=== PATIENT | female | born 1950 | race African-American/Black ===

== ENCOUNTER 2019-05-24 21:02 | Emergency (ER) | payer OTHER ==
[2019-05-24] MEDS ORDERED: DIAZEPAM 5 MG TABLET ONE (21:37)
--- NOTE | 2019-05-24 22:17 | ER ---
Nurse's Notes [facility] Name: Anita Harp Age: 69 yrs Sex: Female : 1950 Arrival Date: 05/24/2019 Time: 21:10 Bed 16 Private MD: Diagnosis: Fall on same level from slipping, tripping and stumbling;Unspecified injury of head;Radiculopathy, cervicothoracic region Presentation: 05/24 21:14 Presenting complaint: Patient states: Reports she had a fall two weeks ago hit her ea head, states " I went to my doctor but she said I was ok" Reports she started having pain two nights ago to the back of the neck. Denies blurry vision. Transition of care: patient was not received from another setting of care. Onset of symptoms was May 24, 2019. Risk Assessment: Do you want to hurt yourself or someone else? Patient reports no desire to harm self or others. Initial Sepsis Screen: Does the patient meet any 2 criteria? No. Patient's initial sepsis screen is negative. Does the patient have a suspected source of infection? No. Patient's initial sepsis screen is negative. Care prior to arrival: None. 21:14 Method Of Arrival: Wheelchair ea 21:14 Acuity: DENT[place] 3 ea Historical: - Allergies: 21:18 Aspirin; ea 21:18 Ibuprofen; ea 21:18 PENICILLINS; ea - Home Meds: 21:18 amitriptyline 10 mg Oral tab 1 tab 3 times per day [Active]; carvedilol 12.5 mg Oral ea tab 1 tab 2 times per day [Active]; furosemide 20 mg Oral tab 1 tab once daily [Active]; gabapentin 300 mg Oral cap 1 cap 3 times per day [Active]; metformin 500 mg Oral TbER 2 tabs once daily [Active]; potassium chloride 20 mEq Oral TbER 1 tab once daily [Active]; valsartan 160 mg Oral tab 1 tab once daily [Active]; venlafaxine 150 mg Oral cp24 1 cap once daily [Active]; - PMHx: 21:18 Rheumatoid Arthritis; Panic Attacks; Diabetes - NIDDM; COPD; claustrophobia; CHF; ea Anxiety; - PSHx: 21:18 Cholecystectomy; Partial Hysterectomy; Tubal ligation; ea - Immunization history:: Adult Immunizations up to date. - Coronavirus screen:: The patient has NOT traveled to [place] in the past 14 days. - Social history:: Smoking status: Patient denies any tobacco usage or history of. - Ebola Screening: : No symptoms or risks identified at this time. Screenin:16 Abuse screen: Denies threats or abuse. Nutritional screening: No deficits noted. ea Tuberculosis screening: No symptoms or risk factors identified. Fall Risk Fall in past 12 months (25 points). Assessment: 21:15 General: Appears uncomfortable, obese, Behavior is cooperative. ls4 21:15 Pain: Complains of pain in base of the skull Pain currently is 8 out of 10 on a pain ls4 scale. Neuro: No deficits noted. Cardiovascular: No deficits noted. Respiratory: No deficits noted. GI: No deficits noted. Musculoskeletal: Circulation, motion, and sensation intact. Capillary refill < 3 seconds, Range of motion: limited in NECK Swelling absent. Injury Description: NO VISIBLE INJURY. 22:20 Reassessment: Patient appears in no apparent distress at this time. Patient and/or ls4 family updated on plan of care and expected duration. Pain level reassessed. Patient is alert, oriented x 3, equal unlabored respirations, skin warm/dry/pink. Patient states symptoms have improved. Vital Signs: 21:16 BP 185 / 84; Pulse 86; Resp 18; Temp 98.1; Pulse Ox 100% on R/A; Weight 136.08 kg; ea Height 5 ft. 4 in. (162.56 cm); Pain 8/10; 21:16 Body Mass Index 51.49 (136.08 kg, 162.56 cm) ea ED Course: 21:10 Patient arrived in ED. ds1 21:16 Triage completed. ea 21:17 Arm band placed on right wrist. Patient placed in an exam room, on a stretcher. ea 21:19 Torsten Grant FNP-C is PHCP. la1 21:19 Kofi Collazo MD is Attending Physician. la1 21:20 Kofi Collazo MD is Attending Physician. snw 21:20 Tawanna Pickens FNP-C is PHCP. snw 21:23 Rozina Raya RN is Primary Nurse. ls4 21:24 Patient has correct armband on for positive identification. Bed in low position. Call ls4 light in reach. Side rails up X 1. Verbal reassurance given. 21:24 No provider procedures requiring assistance completed. ls4 21:49 CT Head C Spine In Process Unspecified. EDMS 22:36 Patient did not have IV access during this emergency room visit. ls4 Administered Medications: 21:50 Drug: Valium 5 mg Route: PO; ls4 22:21 Follow up: Response: No adverse reaction; Marked relief of symptoms ls4 22:33 Drug: [place] (7.5 mg-325 mg) 1 tabs Route: PO; ls4 22:34 Follow up: Response: No adverse reaction; RASS: Alert and Calm (0) ls4 Outcome: 22:16 Discharge ordered by MD. snw 22:35 Discharged to home via wheelchair. ls4 22:35 Condition: stable 22:35 Discharge instructions given to family, Instructed on discharge instructions, follow up and referral plans. medication usage, Demonstrated understanding of instructions, follow-up care, medications, Prescriptions given X 1. 22:36 Patient left the ED. ls4 Signatures: Dispatcher [employer] EDWV Tawanna Pickens, REPLENISHMENT SPECIALIST-C REPLENISHMENT SPECIALIST-Csnw Genesis Dewitt ds1 Torsten Grant REPLENISHMENT SPECIALIST-C REPLENISHMENT SPECIALIST-Cla1 Peggy Meyer, RN Rozina Rudolph ea, RN RN ls4
--- NOTE | 2019-05-24 22:17 | EDPHYS ---
Physician Documentation [facility] Name: Anita Harp Age: 69 yrs Sex: Female : 1950 Arrival Date: 05/24/2019 Time: 21:10 Bed 16 Private MD: ED Physician Kofi Collazo HPI: 05/24 21:47 This 69 yrs old Black Female presents to ER via Wheelchair with complaints of Neck Pain.snw 21:47 Onset: The symptoms/episode began/occurred gradually, 1 week(s) ago, and became snw persistent. Associated signs and symptoms: The patient has no apparent associated signs or symptoms. Modifying factors: The patient symptoms are alleviated by nothing, the patient symptoms are aggravated by movement. The patient has not experienced similar symptoms in the past. The patient has been recently seen by a physician: the patient's primary care provider, with similar presenting complaints, and apparently given a diagnosis of strain. Historical: - Allergies: 21:18 Aspirin; ea 21:18 Ibuprofen; ea 21:18 PENICILLINS; ea - Home Meds: 21:18 amitriptyline 10 mg Oral tab 1 tab 3 times per day [Active]; carvedilol 12.5 mg Oral ea tab 1 tab 2 times per day [Active]; furosemide 20 mg Oral tab 1 tab once daily [Active]; gabapentin 300 mg Oral cap 1 cap 3 times per day [Active]; metformin 500 mg Oral TbER 2 tabs once daily [Active]; potassium chloride 20 mEq Oral TbER 1 tab once daily [Active]; valsartan 160 mg Oral tab 1 tab once daily [Active]; venlafaxine 150 mg Oral cp24 1 cap once daily [Active]; - PMHx: 21:18 Rheumatoid Arthritis; Panic Attacks; Diabetes - NIDDM; COPD; claustrophobia; CHF; ea Anxiety; - PSHx: 21:18 Cholecystectomy; Partial Hysterectomy; Tubal ligation; ea - Immunization history:: Adult Immunizations up to date. - Coronavirus screen:: The patient has NOT traveled to [place] in the past 14 days. - Social history:: Smoking status: Patient denies any tobacco usage or history of. - Ebola Screening: : No symptoms or risks identified at this time. ROS: 21:46 Constitutional: Negative for fever, chills, and weight loss, Eyes: Negative for injury, snw pain, redness, and discharge, Cardiovascular: Negative for chest pain, palpitations, and edema, Respiratory: Negative for shortness of breath, cough, wheezing, and pleuritic chest pain, Abdomen/GI: Negative for abdominal pain, nausea, vomiting, diarrhea, and constipation, Back: Negative for injury and pain, : Negative for injury, bleeding, discharge, and swelling, MS/Extremity: Negative for injury and deformity, Skin: Negative for injury, rash, and discoloration, Neuro: Negative for headache, weakness, numbness, tingling, and seizure, Psych: Negative for depression, anxiety, suicide ideation, homicidal ideation, and hallucinations. 21:46 ENT: Positive for pt states 2 weeks ago she tripped and fell to her face in her bathroom. No LOC. No dizziness or diaphoresis before or after her fall.. 21:46 Neck: Positive for stiffness, tenderness, of the base of the skull and right base of the skull. Exam: 21:45 Constitutional: This is a well developed, well nourished patient who is awake, alert, snw and in no acute distress. Eyes: Pupils equal round and reactive to light, extra-ocular motions intact. Lids and lashes normal. Conjunctiva and sclera are non-icteric and not injected. Cornea within normal limits. Periorbital areas with no swelling, redness, or edema. ENT: Nares patent. No nasal discharge, no septal abnormalities noted. Tympanic membranes are normal and external auditory canals are clear. Oropharynx with no redness, swelling, or masses, exudates, or evidence of obstruction, uvula midline. Mucous membranes moist. Neck: Trachea midline, no thyromegaly or masses palpated, and no cervical lymphadenopathy. Supple, full range of motion without nuchal rigidity, or vertebral point tenderness. No Meningismus. tenderness to right lateral neck on palpation Chest/axilla: Normal chest wall appearance and motion. Nontender with no deformity. No lesions are appreciated. Cardiovascular: Regular rate and rhythm with a normal S1 and S2. No gallops, murmurs, or rubs. Normal PMI, no JVD. No pulse deficits. Respiratory: Lungs have equal breath sounds bilaterally, clear to auscultation and percussion. No rales, rhonchi or wheezes noted. No increased work of breathing, no retractions or nasal flaring. Abdomen/GI: Soft, non-tender, with normal bowel sounds. No distension or tympany. No guarding or rebound. No evidence of tenderness throughout. Back: No spinal tenderness. No costovertebral tenderness. Full range of motion. Skin: Warm, dry with normal turgor. Normal color with no rashes, no lesions, and no evidence of cellulitis. MS/ Extremity: Pulses equal, no cyanosis. Neurovascular intact. Full, normal range of motion. Neuro: Awake and alert, GCS 15, oriented to person, place, time, and situation. Cranial nerves II-XII grossly intact. Motor strength 5/5 in all extremities. Sensory grossly intact. Cerebellar exam normal. Normal gait. Psych: Awake, alert, with orientation to person, place and time. Behavior, mood, and affect are within normal limits. 21:45 Head/face: Noted is tenderness, that is mild, of the nose. Vital Signs: 21:16 BP 185 / 84; Pulse 86; Resp 18; Temp 98.1; Pulse Ox 100% on R/A; Weight 136.08 kg; ea Height 5 ft. 4 in. (162.56 cm); Pain 8/10; 21:16 Body Mass Index 51.49 (136.08 kg, 162.56 cm) ea MDM: 21:19 Patient medically screened. la1 22:15 Data reviewed: vital signs, nurses notes. Data interpreted: Pulse oximetry: on room air snw is 100 %. Interpretation: normal. Counseling: I had a detailed discussion with the patient and/or guardian regarding: the historical points, exam findings, and any diagnostic results supporting the discharge/admit diagnosis, radiology results, the need for outpatient follow up, to return to the emergency department if symptoms worsen or persist or if there are any questions or concerns that arise at home. Special discussion: I have referred the patient to see his PCP for further evaluation of high blood pressure. Based on the history and exam findings, there is no indication for further emergent testing or inpatient evaluation. I discussed with the patient/guardian the need to see the neurologist for further evaluation of the symptoms. I discussed with the patient/guardian the need to see the primary care provider for further evaluation of the symptoms. 05/24 21:27 Order name: CT Head C Spine snw Administered Medications: 21:50 Drug: Valium 5 mg Route: PO; ls4 22:21 Follow up: Response: No adverse reaction; Marked relief of symptoms ls4 22:33 Drug: [place] (7.5 mg-325 mg) 1 tabs Route: PO; ls4 22:34 Follow up: Response: No adverse reaction; RASS: Alert and Calm (0) ls4 Disposition: 22:57 Co-signature as Attending Physician, Kofi Collazo MD. rn Disposition: 05/24/19 22:16 Discharged to Home. Impression: Fall on same level from slipping, tripping and stumbling, Unspecified injury of head, Radiculopathy, cervicothoracic region. - Condition is Stable. - Discharge Instructions: Cervical Radiculopathy, Head Injury, Adult, Fall Prevention in the Home. - Prescriptions for orphenadrine citrate 100 mg Oral Tablet Sustained Release - take 1 tablet by ORAL route 2 times per day As needed; 20 tablet. - Work release form, Medication Reconciliation Form, Thank You Letter, Antibiotic Education, Prescription Opioid Use form. - Follow up: Emergency Department; When: As needed; Reason: Worsening of condition. Follow up: Private Physician; When: 2 - 3 days; Reason: Recheck today's complaints, Continuance of care, Re-evaluation by your physician. Signatures: Dispatcher [employer] EDMS Tawanna Pickens, INVESTIGATION SPECIALIST-C INVESTIGATION SPECIALIST-Csnw Kofi Collazo MD MD rn Attema, Lee INVESTIGATION SPECIALIST-C INVESTIGATION SPECIALIST-Cla1 Peggy Meyer RN RN ea Stewart, Lisa, RN RN ls4 Corrections: (The following items were deleted from the chart) 22:36 22:16 05/24/2019 22:16 Discharged to Home. Impression: Fall on same level from ls4 slipping, tripping and stumbling; Unspecified injury of head; Radiculopathy, cervicothoracic region. Condition is Stable. Discharge Instructions: Cervical Radiculopathy, Head Injury, Adult, Fall Prevention in the Home. Prescriptions for orphenadrine citrate 100 mg Oral Tablet Sustained Release - take 1 tablet by ORAL route 2 times per day As needed; 20 tablet. and Forms are Work release form, Medication Reconciliation Form, Thank You Letter, Antibiotic Education, Prescription Opioid Use. Follow up: Emergency Department; When: As needed; Reason: Worsening of condition. Follow up: Private Physician; When: 2 - 3 days; Reason: Recheck today's complaints, Continuance of care, Re-evaluation by your physician. snw
[2019-05-24] MEDS ORDERED: HYDROCODONE/APAP 7.5/325 MG TAB ONE (22:37)
[2019-05-24 22:43] VITALS: BP 185/84; TEMP 98.1; O2SAT 100
--- NOTE | 2019-05-25 10:49 | RAD REPORT ---
EXAM DESCRIPTION: CT - Head C Spine Mpr Wo Con - 05/25/2019 6:50 am CLINICAL HISTORY: SMASH INJURY TECHNIQUE: Contiguous axial CT images obtained through the brain without IV contrast. Coronal and sa gittal reformatted images were provided. This exam was performed according to our departmental dose-optimization program, which includes autom ated exposure control, adjustment of the mA and/or kV according to patient size and/or use of iterati ve reconstruction technique. COMPARISON: None available for comparison FINDINGS: Brain: There is mild cerebral atrophy. No significant white matter changes. No focal mass effect. Harrison-white matter differentiation is within normal limits. No hemorrhage. Ventricles: No ventriculomegaly or midline shift. Extra-axial spaces: No extra-axial collection or hemorrhage. Paranasal sinuses and mastoid air cells: Well-aerated Vessels: Unremarkable Bones: Unremarkable Soft tissues: Unremarkable IMPRESSION: No acute intracranial or extra-axial abnormality. EXAM DESCRIPTION: C Spine Mpr Wo Con CLINICAL HISTORY: SMASH INJURY TECHNIQUE: Contiguous axial CT images obtained through the cervical spine without IV contrast. Coron al and sagittal reformatted images also provided. This exam was performed according to our departmental dose-optimization program, which includes autom ated exposure control, adjustment of the mA and/or kV according to patient size and/or use of iterati ve reconstruction technique. COMPARISON: None available for comparison FINDINGS: Vertebra: No acute fracture or subluxation. Disc spaces: Moderate to severe multilevel degenerative changes. The central thecal sac is mildly to moderately narrowed at multiple levels. Prevertebral soft tissues: Unremarkable Lung apices: Clear IMPRESSION: No acute injury. Electronically signed by: Brionna Robles MD 05/24/2019 10:00 PM SHOE CLEANER Due to temporary technical issues with the PACS/Fluency reporting system, reports are being signed by the in house radiologist as a courtesy to ensure prompt reporting. The interpreting radiologist is f ully responsible for the content of the report.
== END 2019-05-24 22:36 | disposition home or self-care (01) ==
LOC: ER 21:02
DX: S09.90XA Unspecified injury of head, initial encounter (principal); M54.13 Radiculopathy, cervicothoracic region; W01.0XXA Fall on same level from slipping, tripping and stumbling without subsequent striking against object, initial encounter; Y93.01 Activity, walking, marching and hiking; Y92.9 Unspecified place or not applicable; Z88.0 Allergy status to penicillin; Z88.6 Allergy status to analgesic agent; E11.9 Type 2 diabetes mellitus without complications; J44.9 Chronic obstructive pulmonary disease, unspecified; F41.9 Anxiety disorder, unspecified
CPT/HCPCS: 70450; 72125; 99283

== ENCOUNTER 2019-06-16 15:05 | Inpatient (IN) | payer OTHER ==
--- NOTE | 2019-06-16 16:36 | RAD REPORT ---
EXAM DESCRIPTION: RAD - Chest Single View - 06/16/2019 4:27 pm CLINICAL HISTORY: COUGH, weakness COMPARISON: January 2014 TECHNIQUE: AP portable chest image was obtained 06/16/2019 4:27 pm . FINDINGS: Lung volumes are low. No peripheral mass or consolidation. No failure or volume overload. Defibrillator is in place. Heart and vasculature are normal. No measurable pleural effusion and no pn eumothorax. No acute bony abnormality seen. No acute aortic findings suspected. IMPRESSION: No acute cardiopulmonary process.
[2019-06-16 16:39] LABS: Absolute Lymphocytes (CBC) 1.4 K/uL (0.7-4.9); Basophils % 0.3 % (0-1.3); Hematocrit 34.2 % (36.0-45.0); Lymphocytes % 15.6 % (15.3-44.8); MPV 8.3 fL (7.6-11.3); RBC Red Blood Cell Count 3.57 M/uL (3.86-4.86)
[2019-06-16 16:40] LABS: Protime INR 1.41
[2019-06-16] MEDS ORDERED: NA CHLORIDE 0.9% 1,000 ML ONE (16:48)
[2019-06-16 17:13] LABS: Albumin 2.7 g/dL (3.4-5.0); Bilirubin Direct 0.3 mg/dL (0-0.2); Bilirubin Total 0.7 mg/dL (0.2-1.0); Protein, Total 8.6 g/dL (6.4-8.2); Troponin (Emerg Dept Use Only) 0.16 ng/mL (0.0-0.045)
[2019-06-16 17:14] LABS: Magnesium 0.8 mg/dL (1.8-2.4); Potassium 1.6 mmol/L (3.5-5.1)
--- NOTE | 2019-06-16 17:44 | EKG ---
Test Date: 2019-06-16 Test Time: 15:46:26 Manager Agency: [facility] MEASUREMENT RESULTS: Intervals: Rate: 75 MT: 180 QRSD: 94 QT: 376 QTc: 419 Gilbert: P: 58 MT: 180 QRS: -17 T: 257 INTERPRETIVE STATEMENTS: Normal sinus rhythm Left ventricular hypertrophy with repolarization abnormality Abnormal ECG Compared to ECG 01/30/2014 06:49:38 Left ventricular hypertrophy now present Early repolarization now present Ventricular premature complex(es) no longer present ST (T wave) deviation no longer present Electronically Signed On 06-16-19 17:44:00 CDT by Luis Levy
--- NOTE | 2019-06-16 18:14 | RAD REPORT ---
EXAM DESCRIPTION: CT - Head Brain Wo Cont - 06/16/2019 5:52 pm CLINICAL HISTORY: WEAKNESS COMPARISON: HEAD BRAIN W O CONTRAST dated 01/29/2014 TECHNIQUE: Axial 5 mm thick images of the head were obtained without IV contrast. All CT scans are performed using dose optimization technique as appropriate and may include automated exposure control or mA/KV adjustment according to patient size. FINDINGS: No intracranial hemorrhage, mass, edema or shift of mid-line structures. No acute infarcti on changes seen. No abnormal extra-axial fluid collections. Ventricles are normal. No significant atr ophy or chronic ischemic change. Mastoid air cells and visualized portions of the paranasal sinuses are clear. No acute bony findings. No significant change from comparison. IMPRESSION: Negative non-contrast CT head examination.
[2019-06-16 18:53] LABS: Urine Blood 1+ (NEG); Urine Glucose NEGATIVE (NEG); Urine Protein 1+ (NEG); Urine Specific Gravity 1.015 (1.005-1.030); Urine pH 6.5 (5.0-7.0)
[2019-06-16 19:14] LABS: Urine Bacteria <20 /HPF (<20); Urine Culture Reflex Order NOT NEEDED; Urine RBC NONE SEEN /HPF (NONE SEEN); Urine Urothelial Cells <5 /HPF (NONE SEEN)
[2019-06-16] MEDS ORDERED: KCL 20 MEQ/100 mL IVPB 20 MEQ/100 ML BAG IV ONE (19:14)
[2019-06-16] MEDS ORDERED: Magnesium Sulfate 2gm IVPB 2 G/50 ML BAG IV ONE (19:14)
[2019-06-16] MEDS ORDERED: NA CHLORIDE 0.9% 250 ML ONE ×2 (19:15→22:51)
--- NOTE | 2019-06-16 19:35 | RAD REPORT ---
EXAM DESCRIPTION: CT - Abdomen Pelvis Wo Contrast - 06/16/2019 6:20 pm CLINICAL HISTORY: diarrhea , abdominal pain COMPARISON: CT-STONE PROTOCOL dated 12/02/2011 TECHNIQUE: Axial [address] imaging of the abdomen and pelvis was performed without IV contrast. No IV contrast was given because of allergy, abnormal renal function, patient refusal or physician re quest. No oral contrast All CT scans are performed using dose optimization technique as appropriate and may include automated exposure control or mA/KV adjustment according to patient size. FINDINGS: No suspicious findings in the lung bases. The liver, spleen and pancreas show no suspicious findings on non-contrast imaging. Cholecystectomy c lips are present. No biliary tree dilatation. No hydronephrosis or suspicious renal mass. No significant adrenal finding. Isodense renal masses an d pyelonephritis cannot be excluded in the absence of IV contrast. The urinary bladder is without sig nificant finding. No uterine abnormality seen. Cystic area in the lower uterus is probably a large na bothian cysts 2 cm in size. This is not fully assessed. No similar finding seen in 2012. No ovarian a bnormality suspected. No gastric dilatation or wall thickening. No dilated small bowel loops. No appendicitis finding seen. Cecum and ascending colon are normal in size and show no focal abnormalities. From the hepatic flexu re to the distal rectum there is a dilatation pattern of the colon. No wall thickening, mass or edema . This does not appear to be secondary to an obstruction. This does not meet the diagnostic criteria for megacolon but may be secondary to chronic laxative usage. No free air, free fluid or inflammatory stranding. No hernia, mass or bulky lymphadenopathy. No suspicious bony findings. IMPRESSION: Dilated colon pattern from the hepatic flexure to the distal rectum. No distal rectum or anal obstructing mass identifiable. Colon finding does not meet megacolon diagnostic criteria. The cecum and ascending colon are not invo lved. This could be dilation from chronic laxative usage. No acute wall thickening or edema. Full assessment is limited is the absence of IV contrast.
[2019-06-16] MEDS ORDERED: CALCIUM GLUC 10% INJ 9.3 MEQ in NA CHLORIDE 0.9% 100 ML IV ONE (20:12)
[2019-06-16] MEDS ORDERED: MAGNESIUM 50% 3 GM in NA CHLORIDE 0.9% 100 ML IV ONE (20:12)
[2019-06-16] MEDS ORDERED: ALBUTEROL 2.5 MG/3 ML NEB SOL NEB PRN (20:14)
--- NOTE | 2019-06-16 20:15 | EDPHYS ---
Physician Documentation [facility] Name: Anita Harp Age: 69 yrs Sex: Female : 1950 Arrival Date: 06/16/2019 Time: 15:16 Bed 15 Private MD: ED Physician Chano Rosa HPI: 06/15 15:45 This 69 yrs old Black Female presents to ER via EMS with complaints of Weakness and cp Dizziness. 15:45 The patient's problem is reported as weakness, that is generalized, dizziness. Onset: cp The symptoms/episode began/occurred 3 week(s) ago. Duration: The episode is continuous. 15:45 Context: Possible contributing factors include: patient is a known diabetic. cp 15:45 Associated signs and symptoms: Pertinent positives: diarrhea, dizziness, weakness, cp Pertinent negatives: abdominal pain, chest pain, combativeness, confusion, diaphoresis, vomiting. Severity of symptoms: in the emergency department the symptoms are unchanged despite home interventions. Patient's baseline: Neuro: alert and fully oriented, Motor: no deficits, Ambulation: walks with assist only, uses walker, Speech: normal. Historical: - Allergies: 15:39 Aspirin; ls4 15:39 Ibuprofen; ls4 15:39 PENICILLINS; ls4 - Home Meds: 15:39 amitriptyline 10 mg Oral tab 1 tab 3 times per day [Active]; carvedilol 12.5 mg Oral ls4 tab 1 tab 2 times per day [Active]; metformin 500 mg Oral TbER 2 tabs once daily [Active]; potassium chloride 20 mEq Oral TbER 1 tab once daily [Active]; venlafaxine 150 mg Oral cp24 1 cap once daily [Active]; furosemide 20 mg Oral tab 1 tab once daily [Active]; gabapentin 300 mg Oral cap 1 cap 3 times per day [Active]; valsartan 160 mg Oral tab 1 tab once daily [Active]; - PMHx: 15:39 Anxiety; CHF; COPD; Panic Attacks; Rheumatoid Arthritis; Diabetes - NIDDM; ls4 claustrophobia; - PSHx: 15:39 Cholecystectomy; Partial Hysterectomy; Tubal ligation; ls4 - Immunization history:: Adult Immunizations up to date, Flu vaccine is not up to date. It has been more than one year since last vaccine. - Social history:: Smoking status: Patient denies any tobacco usage or history of. ROS: 15:50 Constitutional: Positive for poor PO intake, Negative for body aches, chills, fever. cp 15:50 Eyes: Negative for injury, pain, redness, and discharge. cp 15:50 ENT: Positive for sore throat, Negative for drainage from ear(s), ear pain, difficulty cp swallowing, difficulty handling secretions. 15:50 Cardiovascular: Negative for chest pain. 15:50 Respiratory: Positive for cough, Negative for shortness of breath, wheezing. 15:50 Abdomen/GI: Positive for diarrhea, Negative for abdominal pain, vomiting, constipation, black/tarry stool, rectal bleeding. 15:50 : Negative for urinary symptoms. 15:50 Skin: Negative for rash. 15:50 Neuro: Positive for dizziness, weakness, Negative for altered mental status, headache, syncope. 15:50 All other systems are negative. Exam: 15:55 ECG was reviewed by the Attending Physician. cp 16:00 Radiologist reports: head CT negative for acute findings cp 16:00 Head/Face: Normocephalic, atraumatic. cp 16:00 Eyes: Pupils equal round and reactive to light, extra-ocular motions intact. Lids and lashes normal. Conjunctiva and sclera are non-icteric and not injected. Cornea within normal limits. Periorbital areas with no swelling, redness, or edema. 16:00 Constitutional: The patient appears in no acute distress, alert, awake, cp non-diaphoretic, non-toxic, well developed, well nourished, obese. 16:00 ENT: External ear(s): are unremarkable, Ear canal(s): are normal, clear, TM's: bulging, is not appreciated, bilaterally, dullness, bilaterally, erythema, is not appreciated, bilaterally, Nose: is normal, Mouth: Lips: dry, Oral mucosa: pink and intact, dry, Posterior pharynx: Airway: no evidence of obstruction, patent, Tonsils: are normal in appearance, Uvula: midline, swelling, is not appreciated, erythema, is not appreciated, exudate, is not appreciated. 16:00 Neck: ROM/movement: pain, is not appreciated, limited range of motion, is not appreciated, Meningeal signs: are not present, nuchal rigidity, is not appreciated, Lymph nodes: no appreciated lymphadenopathy. 16:00 Chest/axilla: Inspection: normal, Palpation: is normal, no crepitus, no tenderness. 16:00 Cardiovascular: Rate: normal, Rhythm: regular, Edema: is not appreciated, JVD: is not appreciated. 16:00 Respiratory: the patient does not display signs of respiratory distress, Respirations: normal, no use of accessory muscles, no retractions, no tachypnea, labored breathing, is not present, Breath sounds: are clear throughout, no decreased breath sounds, no stridor, no wheezing. 16:00 Abdomen/GI: Inspection: obese Bowel sounds: active, all quadrants, Palpation: soft, in all quadrants, mild abdominal tenderness, in all quadrants, rebound tenderness, is not appreciated, voluntary guarding, is not appreciated, involuntary guarding, is not appreciated. 16:00 Back: pain, is absent. 16:00 Skin: cellulitis, is not appreciated, no rash present. 16:00 Neuro: Orientation: to person, place \T\ time. Mentation: able to follow commands, slow to respond, Cerebellar function: is grossly normal, Motor: moves all fours, general weakness without focal deficits, Sensation: is normal. Vital Signs: 15:16 BP 91 / 59; Pulse 78; Resp 14; Pulse Ox 99% on R/A; Pain 0/10; ls4 15:17 BP 88 / 55; Pulse 75; Resp 18; Temp 98.8(O); Pulse Ox 100% on R/A; Weight 158.76 kg ls4 (R); Pain 0/10; 16:30 BP 89 / 57; Pulse 74; Resp 14; Pulse Ox 99% on R/A; Pain 0/10; ls4 17:30 BP 86 / 61; Pulse 75; Resp 14; Pulse Ox 99% on R/A; Pain 0/10; ls4 18:30 BP 87 / 49; Pulse 74; Resp 14; Pulse Ox 99% on R/A; Pain 0/10; ls4 20:53 BP 96 / 67; Pulse 74; Resp 14; Pulse Ox 99% on R/A; Pain 0/10; ls4 Procedures: 22:25 Central Line: the site was prepped with Betadine, in sterile fashion, a triple lumen jmm catheter was inserted, in the right placement was verified, by blood return, the site was dressed with using sterile technique, the patient tolerated the procedure, well. MDM: 15:37 Patient medically screened. cp 20:12 Data reviewed: vital signs, nurses notes. Counseling: I had a detailed discussion with yang the patient and/or guardian regarding: the historical points, exam findings, and any diagnostic results supporting the discharge/admit diagnosis, lab results, radiology results, the need for further work-up and treatment in the hospital. ED course: I discussed the patient with Dr. Alford whom accepted admission. . 06/15 15:38 Order name: Basic Metabolic Panel; Complete Time: 17:30 cp 06/15 17:32 Interpretation: Normal except: K 1.6; CL 94; CO2 36; BUN 23; CRE 1.66; GFR 37; CA 6.7. cp 06/15 15:38 Order name: CBC with Diff; Complete Time: 17:02 cp 06/15 17:03 Interpretation: Normal except: RBC 3.57; HGB 11.3; HCT 34.2; MCV 96.0; STEPHANIE% 77.1. 06/15 15:38 Order name: LFT's; Complete Time: 17:30 06/15 17:33 Interpretation: Normal except: AST 40; BILID 0.3; TP 8.6; ALB 2.7; GLOB 5.9; A/G 0.5. cp 06/15 15:38 Order name: Magnesium; Complete Time: 17:30 cp 06/15 17:33 Interpretation: Abnormal: MG 0.8. cp 06/15 15:38 Order name: NT PRO-BNP; Complete Time: 17:30 cp 06/15 15:38 Order name: PT-INR; Complete Time: 17:02 cp 06/15 17:03 Interpretation: Abnormal: PT 16.5. cp 06/15 15:38 Order name: Troponin (emerg Dept Use Only); Complete Time: 17:30 cp 06/15 18:04 Interpretation: Abnormal: TROPED 0.16. cp 06/15 15:39 Order name: Influenza Screen (a \T\ B); Complete Time: 17:30 cp 06/15 15:39 Order name: Procalcitonin; Complete Time: 18:04 cp 06/15 18:04 Interpretation: Procalcitonin 0.34; Reviewed. 06/15 15:39 Order name: Urine Microscopic Only; Complete Time: 19:57 cp 06/15 15:39 Order name: Lactate; Complete Time: 17:03 cp 06/15 15:39 Order name: Blood Culture Adult (2) cp 06/15 16:54 Order name: Strep; Complete Time: 17:30 ls4 06/15 17:27 Order name: Throat Culture EDMS 06/15 18:06 Order name: Ova And Parasites cp 06/15 18:06 Order name: Stool Culture 06/15 18:06 Order name: CDIFF cp 06/15 18:51 Order name: Urine Dipstick--Ancillary (enter results); Complete Time: 18:57 eb 06/15 20:22 Order name: Basic Metabolic Panel EDMS 06/15 20:22 Order name: Urinalysis W/Microscopic; Complete Time: 15:45 EDMS 06/15 20:22 Order name: UR CREAT; Complete Time: 15:45 EDMS 06/15 20:22 Order name: UR SODIUM; Complete Time: 15:45 EDMS 06/15 20:22 Order name: Thyroid Stimulating Hormone; Complete Time: 23:10 EDMS 06/15 20:22 Order name: CBC with Automated Diff EDMS 06/15 20:22 Order name: CBC with Automated Diff; Complete Time: 15:45 EDMS 06/15 20:22 Order name: CBC with Automated Diff EDMS 06/15 20:22 Order name: CBC with Automated Diff EDMS 06/15 20:22 Order name: Comprehensive Metabolic Panel EDMS 06/15 20:22 Order name: Comprehensive Metabolic Panel; Complete Time: 15:45 EDMS 06/15 20:22 Order name: Magnesium EDMS 06/15 15:38 Order name: XRAY Chest (1 view); Complete Time: 17:03 cp 06/15 15:38 Order name: EKG; Complete Time: 15:42 cp 06/15 15:38 Order name: Cardiac monitoring; Complete Time: 16:43 cp 06/15 15:38 Order name: EKG - Nurse/Tech; Complete Time: 17:34 cp 06/15 15:38 Order name: IV Saline Lock; Complete Time: 17:34 cp 06/15 15:38 Order name: Labs collected and sent; Complete Time: 17:34 cp 06/15 15:38 Order name: O2 Per Protocol; Complete Time: 19:31 cp 06/15 15:38 Order name: O2 Sat Monitoring; Complete Time: 19:31 cp 06/15 15:39 Order name: Urine Dipstick-Ancillary (obtain specimen); Complete Time: 18:58 cp 06/15 17:37 Order name: CT Head Brain wo Cont; Complete Time: 18:42 cp 06/15 18:42 Interpretation: Report reviewed. cp 06/15 17:38 Order name: Rome; Complete Time: 18:57 cp 06/15 18:21 Order name: Abdomen ; Complete Time: 19:57 EDMI 06/15 20:22 Order name: CONS Pharmacy Consult EDMI 06/15 20:22 Order name: CONS Physician Consult EDMI 06/15 20:22 Order name: Physical Therapy Consult EDMI 06/15 20:22 Order name: Regular EDMI 06/15 20:22 Order name: Magnesium; Complete Time: 23:10 EDMI 06/15 20:22 Order name: Magnesium; Complete Time: 15:45 EDMI 06/15 20:22 Order name: Magnesium EDMI 06/15 20:22 Order name: Troponin I EDMI 06/15 20:22 Order name: Troponin I; Complete Time: 23:10 EDMS 06/15 20:22 Order name: Troponin I; Complete Time: 15:45 EDMS 06/15 20:33 Order name: Central Line Kit; Complete Time: 20:53 jmm EC:55 Rate is 75 beats/min. Rhythm is regular. FL interval is normal. QRS interval is normal. cp QT interval is normal. T waves are Flattened. Interpreted by me. Reviewed by me. Administered Medications: 16:25 Drug: NS 0.9% 1000 ml Route: IV; Rate: 1000 ml/hr; Site: left forearm; ls4 19:00 Drug: Magnesium Sulfate 2 grams Route: IVPB; Infused Over: 2 hrs; Site: right ls4 antecubital; 23:00 Follow up: Response: No adverse reaction; IV Status: Completed infusion; IV Intake: [id number] 19:00 Drug: Potassium Chloride 20 mEq Route: IV; Rate: calculated rate; Site: right forearm; ls4 23:13 Follow up: Response: No adverse reaction; IV Status: Completed infusion; IV Intake: [id number] Disposition: 06/16/19 20:14 Hospitalization ordered by Tang Alford for Inpatient Admission. Preliminary diagnosis are Hypocalcemia, Hypomagnesemia, Hypokalemia, Diarrhea, unspecified. - Bed requested for Intensive Care Unit. - Status is Inpatient Admission. lp1 - Condition is Stable. - Problem is new. - Symptoms are unchanged. Addendum: 06/29/2019 12:53 Co-signature as Attending Physician, Saad Navarrete MD I agree with the assessment and k dr plan of care. Signatures: Dispatcher [employer] [facility] Saad Navarrete MD MD [facility] Suhail Vail PA PA [facility] Chanel Newman, RN RN lp1 Brennan Katz PA PA cp Linda Ruiz, RN RN cg Marycarmen MooreNehal mw2 Rozina Raya, CHRISTOPH RN ls4 Pema Zelaya bb3 Corrections: (The following items were deleted from the chart) 06/15 17:32 17:30 Normal except: K 1.6; CL 94; CO2 36; BUN 23; CRE 1.66; GFR 37. cp cp 18:21 17:58 Abdomen Pelvis W Con+CT.RAD.BRZ ordered. EDMI EDMS 18:21 18:04 Abdomen Pelvis Wo Con+CT.RAD.BRZ ordered. EDMI EDMS 18:44 15:45 Context: Possible contributing factors include: Patient is a know diabetic. cp cp 19:28 17:36 Rome ordered. cp ls4 20:38 20:33 TROPONIN (EMERG DEPT USE ONLY)+C.LAB.BRZ ordered. EDMI EDMS 21:41 16:00 Constitutional: The patient appears in no acute distress, alert, awake, cp non-diaphoretic, non-toxic, well developed, well nourished, cp 21:53 20:14 Hospitalization Ordered by Tang Alford MD for Inpatient Admission. Preliminary mw2 diagnosis is Hypocalcemia; Hypomagnesemia; Hypokalemia; Diarrhea, unspecified. Bed requested for Telemetry/MedSurg (Inpatient). Status is Inpatient Admission. Condition is Stable. Problem is new. Symptoms are unchanged. [facility] 06/16 00:11 06/15 21:53 06/16/2019 20:14 Hospitalization Ordered by Tang Alford MD for Inpatient cg Admission. Preliminary diagnosis is Hypocalcemia; Hypomagnesemia; Hypokalemia; Diarrhea, unspecified. Bed requested for [facility] ER HOLD. Status is Inpatient Admission. Condition is Stable. Problem is new. Symptoms are unchanged. mw2 06/16 02:21 00:11 06/16/2019 20:14 Hospitalization Ordered by Tang Alford MD for Inpatient lp1 Admission. Preliminary diagnosis is Hypocalcemia; Hypomagnesemia; Hypokalemia; Diarrhea, unspecified. Bed requested for Intensive Care Unit. Status is Inpatient Admission. Condition is Stable. Problem is new. Symptoms are unchanged. cg
--- NOTE | 2019-06-16 20:15 | ER ---
Nurse's Notes [facility] Name: Anita Harp Age: 69 yrs Sex: Female : 1950 Arrival Date: 06/16/2019 Time: 15:16 Bed 15 Private MD: Diagnosis: Hypocalcemia;Hypomagnesemia;Hypokalemia;Diarrhea, unspecified Presentation: 06/15 15:17 Chief complaint: Patient states: PT STATES THAT SHE HAS BEEN WEEK FOR THE LAST 3 WEEKS. ls4 STATES SHE CANT SIT UP NOW. UPON FURTHER QUESTIONING SHE STATES THAT SHE HAS A COUGH AND A SORE THROAT. WHEN ASKED ABOUT FEVER SHE STATES HER LIPS ARE VERY CHAPPED SO IT IS POSSIBLE. Coronavirus screen: The patient has NOT traveled to a country currently being monitored by the CDC within the last 14 days. The patient has NOT had contact with any known and/or suspected case of coronavirus. Proceed with normal triage procedures. Ebola Screen: No symptoms or risks identified at this time. Initial Sepsis Screen: Does the patient meet any 2 criteria? Systolic BP < 90 mmHg. No. Patient's initial sepsis screen is negative. Initial Sepsis Screen: Does the patient have a suspected source of infection? No. Patient's initial sepsis screen is negative. Risk Assessment: Do you want to hurt yourself or someone else? Patient reports no desire to harm self or others. Care prior to arrival: Glucose check: 70. Activity prior to arrival: None. 15:17 Method Of Arrival: EMS ls4 15:17 Acuity: [place] 3 ls4 23:08 Onset of symptoms was May 2019. bb3 Triage Assessment: 15:16 General: Appears in no apparent distress. comfortable, Behavior is calm, cooperative. ls4 15:16 Neuro: Level of Consciousness is awake, alert, obeys commands, Oriented to person, ls4 place, time, situation, Director Of [employer] are weak bilaterally Moves all extremities. Weakness Speech is normal, Facial symmetry appears normal, Pupils are PERRLA, Reports weakness. Cardiovascular: Denies chest pain, diaphoresis, lightheadedness, nausea, palpitations, shortness of breath, syncope, vomiting, Capillary refill < 3 seconds Patient's skin is warm and dry. Rhythm is regular Chest pain is denied. Respiratory: Airway is patent Respiratory effort is even, unlabored, Respiratory pattern is regular. GI: No deficits noted. No signs and/or symptoms were reported involving the gastrointestinal system. Derm: No signs and/or symptoms reported regarding the dermatologic system. Skin. Musculoskeletal: No signs and/or symptoms reported regarding the musculoskeletal system. Historical: - Allergies: 15:39 Aspirin; ls4 15:39 Ibuprofen; ls4 15:39 PENICILLINS; ls4 - Home Meds: 15:39 amitriptyline 10 mg Oral tab 1 tab 3 times per day [Active]; carvedilol 12.5 mg Oral ls4 tab 1 tab 2 times per day [Active]; metformin 500 mg Oral TbER 2 tabs once daily [Active]; potassium chloride 20 mEq Oral TbER 1 tab once daily [Active]; venlafaxine 150 mg Oral cp24 1 cap once daily [Active]; furosemide 20 mg Oral tab 1 tab once daily [Active]; gabapentin 300 mg Oral cap 1 cap 3 times per day [Active]; valsartan 160 mg Oral tab 1 tab once daily [Active]; - PMHx: 15:39 Anxiety; CHF; COPD; Panic Attacks; Rheumatoid Arthritis; Diabetes - NIDDM; ls4 claustrophobia; - PSHx: 15:39 Cholecystectomy; Partial Hysterectomy; Tubal ligation; ls4 - Immunization history:: Adult Immunizations up to date, Flu vaccine is not up to date. It has been more than one year since last vaccine. - Social history:: Smoking status: Patient denies any tobacco usage or history of. Screenin:01 Abuse screen: Denies threats or abuse. Denies injuries from another. Nutritional ls4 screening: No deficits noted. Tuberculosis screening: No symptoms or risk factors identified. Fall Risk None identified. Assessment: 17:01 Reassessment: Patient appears in no apparent distress at this time. Patient and/or ls4 family updated on plan of care and expected duration. Pain level reassessed. Patient is alert, oriented x 3, equal unlabored respirations, skin warm/dry/pink. DAUGHTER STATES THAT PATIENT HAS NOT HAD A COUGH OR FEVER IN THE RECENT PAST. STATES THAT PATIENT HAS BEEN WEEK AND UNABLE TO SIT OR STAND ON HER OWN AND IS TIRED ALL OF THE TIME. Pain: Denies pain. 18:00 Reassessment: Patient appears in no apparent distress at this time. Patient and/or ls4 family updated on plan of care and expected duration. Pain level reassessed. Patient is alert, oriented x 3, equal unlabored respirations, skin warm/dry/pink. PT IS AWAKE ALERT AND APPROPRIATE. NO DISTRESS. 18:00 Neuro: Level of Consciousness is awake, alert, obeys commands, Oriented to person, ls4 place, time, situation. Respiratory: Airway Respiratory effort is even, unlabored, Respiratory pattern is regular. 19:58 Reassessment: Patient appears in no apparent distress at this time. Patient and/or ls4 family updated on plan of care and expected duration. Pain level reassessed. Patient is alert, oriented x 3, equal unlabored respirations, skin warm/dry/pink. family at bedside. pt is awake and alert and in no distress. 21:14 Reassessment: Patient appears in no apparent distress at this time. Patient and/or ls4 family updated on plan of care and expected duration. Pain level reassessed. Patient is alert, oriented x 3, equal unlabored respirations, skin warm/dry/pink. CENTRAL LINE BEING PLACED BY VICK RIBEIRO. Vital Signs: 15:16 BP 91 / 59; Pulse 78; Resp 14; Pulse Ox 99% on R/A; Pain 0/10; ls4 15:17 BP 88 / 55; Pulse 75; Resp 18; Temp 98.8(O); Pulse Ox 100% on R/A; Weight 158.76 kg ls4 (R); Pain 0/10; 16:30 BP 89 / 57; Pulse 74; Resp 14; Pulse Ox 99% on R/A; Pain 0/10; ls4 17:30 BP 86 / 61; Pulse 75; Resp 14; Pulse Ox 99% on R/A; Pain 0/10; ls4 18:30 BP 87 / 49; Pulse 74; Resp 14; Pulse Ox 99% on R/A; Pain 0/10; ls4 20:53 BP 96 / 67; Pulse 74; Resp 14; Pulse Ox 99% on R/A; Pain 0/10; ls4 Vitals: 20:53 Cardiac Rhythm Assessment Regular. ls4 ED Course: 15:16 Patient arrived in ED. ls4 15:16 Rozina Raya, RN is Primary Nurse. ls4 15:16 Arm band placed on right wrist. ls4 15:16 Patient has correct armband on for positive identification. Bed in low position. Call ls4 light in reach. Side rails up X 1. dermatology sales representative on. Pulse ox on. NIBP on. 15:16 Diet: Patient is NPO. ls4 15:24 Brennan Katz PA is PHCP. cp 15:24 Chano Roas MD is Attending Physician. cp 15:37 Triage completed. ls4 16:20 No provider procedures requiring assistance completed. Initial lab(s) drawn. Inserted ls4 saline lock: 22 gauge in right forearm, using aseptic technique. Blood collected. 16:28 XRAY Chest (1 view) In Process Unspecified. EDMS 17:34 Throat Culture Sent. ls4 17:52 CT Head Brain wo Cont In Process Unspecified. EDMS 18:21 Abdomen In Process Unspecified. EDMS 18:50 Rome cath inserted, using sterile technique, 16 Fr., by ri, balloon inflated, to ls4 gravity drainage, urine specimen collected. returned clear yellow urine. Patient tolerated well. Rome cath. Inserted saline lock: in right antecubital area, using aseptic technique. 18:52 PHCP role handed off by Brennan Katz PA [facility] 18:52 Vick Vail PA is PHCP. jmm 20:13 Tang Alford MD is Hospitalizing Provider. [facility] 23:07 Patient admitted, IV remains in place. intact, No redness/swelling at site. bb3 Administered Medications: 16:25 Drug: NS 0.9% 1000 ml Route: IV; Rate: 1000 ml/hr; Site: left forearm; ls4 19:00 Drug: Magnesium Sulfate 2 grams Route: IVPB; Infused Over: 2 hrs; Site: right ls4 antecubital; 23:00 Follow up: Response: No adverse reaction; IV Status: Completed infusion; IV Intake: [id number] 19:00 Drug: Potassium Chloride 20 mEq Route: IV; Rate: calculated rate; Site: right forearm; ls4 23:13 Follow up: Response: No adverse reaction; IV Status: Completed infusion; IV Intake: [id number] Intake: 23:00 IV: 50ml; Total: 50ml. bb3 23:13 IV: 50ml; Total: 100ml. bb3 Outcome: 20:14 Decision to Hospitalize by Provider. jmm 23:07 Admitted to ER Hold. Please see [facility] for further documentation. bb3 23:07 Condition: stable 23:07 Instructed on the need for admit. 06/16 02:21 Patient left the ED. lp1 Signatures: Dispatcher [employer] EDMS Vick Vail PA PA jmm Pena, Laura RN RN lp1 Brennan Katz PA PA cp Stewart, Lisa, RN RN ls4 Pema Zelaya bb3 Corrections: (The following items were deleted from the chart) 06/15 20:01 20:00 Reassessment: Patient appears in no apparent distress at this time. ls4 ls4
[2019-06-16] MEDS: POTASSIUM CL 40 MEQ in NA CHLORIDE 0.9% 500 ML IV SCH (21:00)
[2019-06-16] MEDS: POTASSIUM CL SA 10 MEQ TAB PO SCH (21:00)
[2019-06-16 23:03] LABS: Magnesium 1.5 mg/dL (1.8-2.4); Thyroid Stimulating Hormone 0.915 uIU/mL (0.360-3.740); Troponin I 0.18 ng/mL (0.0-0.045)
--- NOTE | 2019-06-16 23:29 | HP ---
Date of Admission: 06/16/2019 Presenting Complaint: Weakness and dizziness. History Of Present Illness: Ms. Loyd Howard is a 69-year-old female with past medic al history of hypertension, diabetes mellitus, hyperlipidemia, COPD, who presented because of feeling of unwell, weakness, body aches, dizziness upon standing, nausea, and 1 episode of vomiting today. She also had a fall while trying to get up from the commode this afternoon. She denies any recent me dication changes. She admits to loose bowel movements since the last 5 days, but denies any overt he matochezia. She takes furosemide, but she denies any recent increased dose. She denies any change i n her urine volume. She denies any chest pain. She denies any cough. She denies any shortness of b reath. On arrival in the ED, she was noted with mild elevation in troponin of 0.16, as well as sever e hypomagnesemia of 0.8, hypocalcemia of 6.7, as well as significant hypopotassemia of 1.6. She stat es she takes regular potassium normally, which she has been adherent to. Past Medical History: Significant for hypertension, hyperlipidemia, diabetes mellitus since over 20 years, history of COPD, history of coronary artery disease status post angiogram in 2013, history of presumed diastolic CHF on chronic diuresis with Lasix. Social History: Patient resides with the daughter. She is a lifelong nonsmoker. No history of alco hol or illicit drug use. She was normally functional until this recent illness. Allergy: Aspirin, penicillin, ibuprofen. Home Medications: See extensive medication list. Family History: Significant for father with coronary artery disease in the 70s. Review of Systems: All systems reviewed x14 were negative, except as mentioned above. Physical Examination: Current Vitals: Blood pressure of 88/47, pulse of 75, respiratory rate of 16, temperature afebrile a t 98.9, O2 saturation on 100% on room air. General: Obese, middle-age female, appear elderly, calm, lying in bed, not in any distress. HEENT: Pupils equal, reactive to light. No periorbital edema. No conjunctiva pallor. Anicteric. Moist oral mucosa. Neck: No JVD. No carotid bruit. Respiratory: Good air entry. No crepitation. Cardiovascular: S1, S2. Rate and rhythm regular. GI: Obese abdomen, but soft. Bowel sounds positive. No organomegaly. : Normal external genitalia. [place] in situ with shan colored urine. Musculoskeletal: No pedal edema. No calf tenderness. Neuro: Patient is alert, oriented. Cranial nerves 2 through 12 grossly intact. Diagnostic Data: On labs, sodium 139, potassium 1.6, chloride 94, bicarb 36, BUN 23, creatinine 1.66 , calcium 6.7, magnesium 0.8, T bilirubin 0.7, alkaline phosphatase 47. Rapid troponin 0.16. ProBNP of 344. Albumin 2.7. Urinalysis was essentially negative. WBC 8.7, hemoglobin 11, platelets 323. Head CT was essentially negative. No intracranial process. Chest x-ray shows low lung volumes and no effusions. AICD in situ. CT of the abdomen and pelvis shows dilated colon from the hepatic flexu re to the distal rectum. No obstructing mass identified. This could be dilation from chronic laxati ve usage. Impression: 1.Elevated troponin may be due to demand-mediated ischemia. 2.Megacolon due to chronic laxative use. 3.Severe hypomagnesemia with hypocalcemia and hypokalemia. 4.Presumed congestive heart failure history, status post automated implantable cardioverter-defibril lator. 5.Acute renal failure. Plan: We admit patient to the ICU. We will do aggressive magnesium, potassium, as well as calcium r eplacement. We will do BMP with magnesium q.4 for now once the electrolyte corrected. We will hold off laxatives. We will also hold off metformin as well as Lasix, which patient was currently on. Ac sa[place] renal failure may be due to over-diuresis. We will do aggressive IV fluid for now. We will cont inue to treat hypotension with fluid for now. Follow proBNP in a.m. May need cardiology consult for mild troponin elevation, but for now, we do have Plavix as well as Lovenox. We do DVT prophylaxis, patient on Lovenox. Advanced directives, patient is full code. Total time spent greater than 70 minutes. EO/MODL Voice ID: [id number]
[2019-06-17] MEDS: POTASSIUM CL 40 MEQ in NA CHLORIDE 0.9% 500 ML IV SCH ×3 (01:00→12:42)
[2019-06-17] MEDS: INSULIN -REGULAR HUMAN 50 UNIT/0.5 ML ML SQ SCH ×5 (01:50→21:00)
[2019-06-17] MEDS: MAGNESIUM OXIDE 400 MG TAB PO SCH ×3 (01:51→21:00)
[2019-06-17] MEDS: NA CHLORIDE 0.9% 1,000 ML IV SCH ×2 (01:54→07:00)
[2019-06-17] MEDS ORDERED: KCL 20 MEQ/100 mL IVPB 20 MEQ/100 ML BAG IV ONE ×3 (02:38→09:26)
[2019-06-17] MEDS: POTASSIUM CL SA 10 MEQ TAB PO SCH ×5 (02:38→22:57)
[2019-06-17] MEDS ORDERED: MAGNESIUM SULFATE 1 gm IVPB 1 GM/100 ML BAG IV ONE (02:39)
[2019-06-17 04:29] LABS: Urine Appearance TURBID; Urine Blood 3+ (NEG); Urine Color DK YELLOW; Urine Glucose NEGATIVE (NEG); Urine Protein 2+ (NEG); Urine Specific Gravity 1.025 (1.005-1.030)
[2019-06-17 05:08] LABS: Urine Bacteria >50 /HPF (<20); Urine Culture Reflex Order REFLEXED; Urine Mucus 2+ /HPF (NONE SEEN)
[2019-06-17 05:11] LABS: UR SODIUM 35 mmol/L (27-287)
[2019-06-17 05:16] LABS: Urine Bilirubin NEGATIVE (NEG)
[2019-06-17 06:13] LABS: Absolute Lymphocytes (CBC) 1.6 K/uL (0.7-4.9); Basophils % 0.2 % (0-1.3); Hematocrit 30.9 % (36.0-45.0); Lymphocytes % 18.8 % (15.3-44.8); MPV 8.4 fL (7.6-11.3); RBC Red Blood Cell Count 3.24 M/uL (3.86-4.86)
[2019-06-17 06:18] LABS: Albumin 2.5 g/dL (3.4-5.0); Bilirubin Total 0.6 mg/dL (0.2-1.0); Protein, Total 7.7 g/dL (6.4-8.2)
[2019-06-17 06:25] LABS: Potassium 1.7 mmol/L (3.5-5.1)
[2019-06-17] MEDS ORDERED: CALCIUM GLUC 10% INJ 9.3 MEQ in NA CHLORIDE 0.9% 100 ML IV ONE (06:34)
[2019-06-17] MEDS: CLOPIDOGREL 75 MG TABLET PO SCH (08:29)
[2019-06-17] MEDS: ONDANSETRON 4 MG/2 ML VIAL IV PRN ×2 (08:39→16:32)
[2019-06-17] MEDS: MORPHINE 2 MG/ML SYR IV PRN ×3 (08:39→18:25)
[2019-06-17 08:59] LABS: UR CL RANDOM 23 mmol/L (25-40)
[2019-06-17] MEDS ORDERED: ENOXAPARIN 100 MG/ML SYR SQ SCH (09:00)
[2019-06-17] MEDS ORDERED: NA CHLORIDE 0.9% 250 ML ONE (09:26)
[2019-06-17] MEDS: CALCIUM GLUC 10% INJ 9.3 MEQ in NA CHLORIDE 0.9% 100 ML IV ONE ×2 (09:38→09:42)
--- NOTE | 2019-06-17 09:47 | P.PN ---
Subjective Date of Service: 06/17/19 Primary Care Provider: Dr. Mason Chief Complaint: Weakness and dizziness Subjective: Other (Patient reports feeling elevate better. Patient with chronic diarrhea. Patient reports that she does not take laxatives. Mild diarrhea noted per patient) Physical Examination - Vital Signs Temperature: 97.8 F Blood Pressure: 93/60 Pulse: 79 Respirations: 18 Pulse Ox (%): 98 - Physical Exam General: Alert, In no apparent distress, Oriented x3, Cooperative HEENT: Atraumatic Neck: Supple Respiratory: Clear to auscultation bilaterally, Normal air movement Cardiovascular: Normal pulses, Regular rate/rhythm Gastrointestinal: Normal bowel sounds, Soft and benign, Other (Patient is morbidly obese. No significant pain noted) Integumentary: No erythema, No warmth, No cyanosis Neurological: Normal speech, Normal strength at 5/5 x4 extr, Normal tone, Normal affect - Studies Laboratory Data (last 24 hrs) 06/16/19 16:20: PT 16.5 H, INR 1.41 06/16/19 16:20: WBC 8.7, Hgb 11.3 L, Hct 34.2 L, Plt Count 323 06/16/19 16:20: Sodium 139, Potassium 1.6 L*, BUN 23 H, Creatinine 1.66 H, Glucose 102, Magnesium 0.8 L*, Total Bilirubin 0.7, AST 40 H, ALT 18, Alkaline Phosphatase 47 Microbiology Data (last 24 hrs): 06/16/19 16:20 Blood - Blood Anaerobic Blood Culture - Final 06/16/19 16:05 Blood - Blood Anaerobic Blood Culture - Final 06/16/19 16:58 Throat Group A Streptococcus Rapid Screen - Final 06/16/19 16:22 Nasopharnyx Influenza Type A Antigen Screen - Final 06/16/19 16:22 Nasopharnyx Influenza Type B Antigen Screen - Final Medications List Reviewed: Yes Assessment & Plan Discharge Plan: Home Plan to discharge in: Greater than 2 days Physician Review Additional Text: Impression: Chronic diarrhea with severe hypomagnesia, hypokalemia, and hypocalcemia Acute on chronic renal failure stage 4 Anemia chronic disease Elevated troponin with history of CAD/AICD likely ischemic demand Anemia of chronic disease Diabetes mellitus type 2 Hypertension COPD Morbid obesity Plan: Chronic diarrhea with severe hypomagnesia, hypokalemia, and hypocalcemia: Will advance diet. Will continue with IV fluid hydration. Continue potassium, calcium and magnesium replacement. Will consult nephrology for further evaluation and treatment. Await further recommendation. Will evaluate stool for culture, O&P and C diff. Patient denies using excessive laxatives. Will monitor closely. Acute on chronic renal failure stage 4: Continue as above. Nephrology consulted. Anemia chronic disease: Will monitor hemoglobin closely. Elevated troponin with history of CAD/AICD likely ischemic demand: Overall stable. Will monitor closely. Will discuss with cardiology. I would change Lovenox to DVT prophylaxis. Diabetes mellitus type 2: Will need to review all medication. Will provide Accu-Cheks and sliding scale. Hypertension: Hold blood pressure medication at this time. Will verify home medication. COPD: Will verify home medication. Morbid obesity: Lifestyle modification education will be addressed. Time Spent Managing Pts Care (In Minutes): 55
[2019-06-17] MEDS ORDERED: ALBUTEROL INHALER 60 PUFF/8 GM IH PRN (09:49)
[2019-06-17] MEDS ORDERED: D50W 25 GM/50 ML SYRINGE/VIAL IV ONE (09:51)
[2019-06-17] MEDS ORDERED: D50W 25 GM/50 ML SYRINGE/VIAL IV PRN (09:51)
[2019-06-17] MEDS ORDERED: MAGNESIUM 50% 3 GM in NA CHLORIDE 0.9% 100 ML IV ONE (10:33)
[2019-06-17] MEDS ORDERED: NA CHLORIDE 0.9% 1,000 ML IV SCH (12:00)
[2019-06-17] MEDS ORDERED: DOPAMINE/D5W 400 MG/250 ML BAG IV PRN (12:05)
[2019-06-17] MEDS ORDERED: THIAMINE 200 MG/2 ML INJ IVP ONE (12:05)
[2019-06-17] MEDS: ALBUMIN HUMAN 25% 100 ML IV PRN ×2 (12:37→17:41)
[2019-06-17] MEDS: MIDODRINE HCL 5 MG TABLET PO SCH ×2 (12:38→17:50)
[2019-06-17] MEDS: CALCIUM CARBONATE 500 MG TAB PO SCH ×3 (12:38→22:59)
[2019-06-17] MEDS: HEPARIN 5000 UNIT/ML 1 ML VIAL SQ SCH ×2 (12:39→22:58)
[2019-06-17] MEDS: DEXTROSE 10%-WATER 500 ML IV SCH (12:40)
[2019-06-17] MEDS: D5 0.9 NS 1,000 ML IV SCH ×2 (12:41→22:57)
[2019-06-17] MEDS: LACTOBACILLUS/ACIDOPHILUS TAB PO SCH ×2 (12:48→22:58)
[2019-06-17] MEDS: SPIRONOLACTONE 25 MG TABLET PO SCH (12:48)
[2019-06-17] MEDS: NA CHLORIDE 0.9% 250 ML IV PRN ×2 (13:30→14:00)
[2019-06-17] MEDS: CALCITROL 0.25 MCG CAP PO SCH (14:00)
[2019-06-17 15:40] LABS: Magnesium 2.5 mg/dL (1.8-2.4)
[2019-06-17 15:44] LABS: Potassium 1.8 mmol/L (3.5-5.1)
[2019-06-17] MEDS ORDERED: POTASSIUM CL SA 10 MEQ TAB PO ONE (15:52)
[2019-06-17] MEDS ORDERED: Gentamicin Inj 80 MG in NA CHLORIDE 0.9% 100 ML IVPB ONE ×2 (16:00→17:00)
[2019-06-17] MEDS ORDERED: VANCOMYCIN/NS 1 gm 1 GM/250 ML BAG IVPB ONE (16:30)
[2019-06-17] MEDS: DOPAMINE/D5W 400 MG/250 ML BAG IV PRN (16:39)
[2019-06-17] MEDS ORDERED: CALCIUM GLUC 10% INJ 4.65 MEQ in NA CHLORIDE 0.9% 100 ML IV ONE (17:00)
[2019-06-17 17:50] LABS: Hematocrit 30.5 % (36.0-45.0)
--- NOTE | 2019-06-17 23:53 | CON ---
Date of Consultation: 06/17/2019 Chief Complaint: Acute kidney injury, moderately severe borderline oliguric, associated with renal hypoperfusion, hypovolemia, and electrolyte abnormalities. Patient was found to have severe hypokalemia and hypocalcemia. Patient is on potassium replacement. Potassium level has improved somewhat. Patient presented to the hospital with lab work showing severe hypokalemia with metabolic alkalosis. Bicarbonate was 36 and potassium 1.6, sodium 139, chloride 94, BUN 23, creatinine 1.66, magnesium was 0.8, calcium 6.7. Magnesium replacement was started as well as potassium replacement. Magnesium level improved to 1.5. Patient was found to have severe hyperparathyroidism and was started on calcitriol. Vitamin D level is pending. Potassium level is gradually improving and replacement with potassium is ordered with p.o. potassium supplements as well as IV potassium supplement. The patient remains in ICU. She was started on pressors and IV fluids, and antibiotics were started for possible septic shock. Patient has multiple medical problems. History Of Present Illness: She is 69-year-old female with past medical history of hypertension, diabetes mellitus, hyperlipidemia, COPD. She presented to the hospital because she was feeling unwell. She developed generalized weakness, body aches, dizziness upon standing, nausea, and vomiting prior to this admission. She had loose bowel movements for at least 5-7 days. She denied melena or hematemesis. She takes furosemide for volume control at home and indwelling control. Furosemide was stopped upon admission. She denied chest pain, cough, fever, or shortness of breath. Troponin was mildly elevated up to 0.16. Patient was found to have severe hypomagnesemia and hypocalcemia. For hypocalcemia, she received calcium gluconate as well as calcium carbonate by mouth and calcitriol was started. 25-hydroxy vitamin D level is pending. Review of Systems: Constitutional: Patient denies fever, chills. Eyes: Denies vision changes. Ears, Nose, Mouth, and Throat: Denies sore throat or earache. Respiratory: Denies PND, orthopnea. Cardiovascular: Denies chest pain, palpitation. GI: Denies nausea, vomiting. : Denies dysuria, hematuria. All other systems reviewed and all are negative. Past Medical History: Hypertension, hyperlipidemia, diabetes mellitus for at least 20 years, history of COPD, chronic kidney disease stage 3, benign nephrosclerosis, coronary artery disease, status post angiogram 2013, history of diastolic congestive heart failure on chronic diuretic treatment with Lasix. Social History: Denies alcohol. She is a lifelong nonsmoker. Denies tobacco. Family History: Father had coronary artery disease, in his 70s. Physical Examination: Vital Signs: Blood pressure is 88/47, heart rate 75, respiratory rate 16, temperature 98.9. Eyes: Anicteric sclerae. EOMI. Ears, Nose, Mouth, and Throat: Oral mucosa moist. No pallor. Neck: Supple. No bruits. Lungs: Clear to auscultation bilaterally. No wheezing. Heart: S1, S2. No pericardial friction rub. Abdomen: Soft. Benign. Nontender. No rebound Extremities: Slight edema. No cellulitis. Skin : warm and dry, no oozing Laboratory Data: Sodium 139, potassium 1.6, chloride 94, bicarbonate 36, BUN 20 , creatinine 1.66, calcium 6.7, magnesium 0.8, albumin 2.7. WBC 8.7, hemoglobin 11, and platelets 323. CT scan was negative for acute changes. Chest x-ray showed low lung volumes and no effusion. AICD in situ. CT of the abdomen and pelvis showed dilated colon from hepatic flexure to distal rectum. No obstructing mass identified. Impression And Plan: 1. [id number] kidney injury associated with prerenal azotemia and diuretic effect and multiple electrolyte abnormalities including hypomagnesemia , likely due to diuretic; hypokalemia, triggered by hypomagnesemia and diuretic as well as decreased p.o. intake and evolving metabolic alkalosis secondary to diarrhea. 2. Patient was found to have hypocalcemia which is accelerated by hypomagnesemia. Calcium level will be re-evaluated. Patient is started on calcitriol and calcium replacement was started. Magnesium replacement was ordered according to lab results and plan is to monitor Mg level and adjust treatment accordingly. 3. In view of severe hypotension, the patient was initiated on pressors. Continue IV fluids. Patient was taken off metformin due to acute kidney injury. Lactic acid will be checked , at this point no evidence of metabolic acidosis. Patient will continue potassium replacement and magnesium replacement. The plan is to check the urinalysis as well as urine screen for electrolytes abnormalities. EB/MODL Voice ID: [id number] Report ID: [id number] MTDD
[2019-06-18] MEDS: DOPAMINE/D5W 400 MG/250 ML BAG IV PRN ×3 (01:18→16:08)
[2019-06-18] MEDS: ONDANSETRON 4 MG/2 ML VIAL IV PRN ×3 (01:18→16:07)
[2019-06-18 01:26] LABS: Potassium 1.9 mmol/L (3.5-5.1)
[2019-06-18] MEDS: KCL 20 MEQ/100 mL IVPB 20 MEQ/100 ML BAG IV SCH ×12 (01:47→22:43)
[2019-06-18] MEDS: MIDODRINE HCL 5 MG TABLET PO SCH ×3 (03:52→16:07)
[2019-06-18] MEDS: DEXTROSE 10%-WATER 500 ML IV SCH ×2 (04:55→19:02)
[2019-06-18 05:33] LABS: Basophils % 0.2 % (0-1.3); Hematocrit 29.5 % (36.0-45.0); MPV 8.4 fL (7.6-11.3); RBC Red Blood Cell Count 3.08 M/uL (3.86-4.86)
[2019-06-18] MEDS: D5 0.9 NS 1,000 ML IV SCH ×4 (05:43→22:20)
[2019-06-18] MEDS: INSULIN -REGULAR HUMAN 50 UNIT/0.5 ML ML SQ SCH ×4 (07:30→20:41)
[2019-06-18 08:13] LABS: Albumin 2.5 g/dL (3.4-5.0); Bilirubin Total 0.6 mg/dL (0.2-1.0); Ferritin 546.6 ng/mL (8-388); Phosphorus 1.3 mg/dL (2.5-4.9); Protein, Total 7.5 g/dL (6.4-8.2); Thyroid Stimulating Hormone 0.169 uIU/mL (0.360-3.740)
[2019-06-18 08:15] LABS: Potassium 2.1 mmol/L (3.5-5.1)
[2019-06-18] MEDS: CALCITROL 0.25 MCG CAP PO SCH (08:20)
[2019-06-18] MEDS: CLOPIDOGREL 75 MG TABLET PO SCH (08:44)
[2019-06-18] MEDS: CALCIUM CARBONATE 500 MG TAB PO SCH ×3 (08:44→20:21)
[2019-06-18] MEDS: THIAMINE HCL 100 MG TABLET PO SCH (08:44)
[2019-06-18] MEDS: LACTOBACILLUS/ACIDOPHILUS TAB PO SCH ×3 (08:45→20:20)
[2019-06-18] MEDS: HEPARIN 5000 UNIT/ML 1 ML VIAL SQ SCH ×2 (08:45→20:20)
[2019-06-18] MEDS: SPIRONOLACTONE 25 MG TABLET PO SCH (08:45)
[2019-06-18] MEDS: MAGNESIUM OXIDE 400 MG TAB PO SCH ×2 (08:48→20:21)
[2019-06-18] MEDS: ALBUMIN HUMAN 25% 100 ML IV PRN ×2 (09:26→16:06)
[2019-06-18] MEDS: MORPHINE 2 MG/ML SYR IV PRN ×2 (09:27→18:32)
--- NOTE | 2019-06-18 10:15 | P.PN ---
Subjective Date of Service: 06/18/19 Primary Care Provider: Dr. Mason Chief Complaint: Weakness and dizziness Subjective: Doing well, Other (Still with diarrhea. Nurses had to place a fecal system. 500 cc per these sees out. 9000 input total/ 4500 out. Patient was placed on vasopressor yesterday due to hypotension.) Physical Examination - Vital Signs Temperature: 97.3 F Blood Pressure: 113/69 Pulse: 90 Respirations: 16 Pulse Ox (%): 97 - Physical Exam General: Alert, In no apparent distress, Cooperative HEENT: Atraumatic Neck: Supple Respiratory: Clear to auscultation bilaterally, Normal air movement Cardiovascular: Normal pulses, Regular rate/rhythm Gastrointestinal: Normal bowel sounds, No tenderness, No masses, No rebound, No guarding Musculoskeletal: No tenderness, No warmth Integumentary: No erythema, No warmth, No cyanosis Neurological: Normal speech, Normal strength at 5/5 x4 extr, Normal tone, Normal affect - Studies Microbiology Data (last 24 hrs): 06/16/19 16:58 Throat Culture & Sensitivity - Final NORMAL UPPER RESPIRATORY ROLY GROWN. 06/16/19 16:20 Blood - Blood Anaerobic Blood Culture - Final 06/16/19 16:05 Blood - Blood Anaerobic Blood Culture - Final Medications List Reviewed: Yes Assessment & Plan Discharge Plan: Home Plan to discharge in: Greater than 2 days Physician Review Additional Text: Impression: Acute on Chronic diarrhea with severe hypomagnesia, hypokalemia, and hypocalcemia complicated with hypotension related to dehydration Acute on chronic renal failure stage 4 Anemia chronic disease Elevated troponin with history of CAD/AICD likely ischemic demand Anemia of chronic disease Diabetes mellitus type 2 Hypertension COPD Morbid obesity Plan: Acute on Chronic diarrhea with severe hypomagnesia, hypokalemia, and hypocalcemia complicated with hypotension related to dehydration: Patient continues to require IV fluid hydration. Vasopressors started yesterday due to hypotension. Patient does not appear septic. Lactic acid and pro calcitonin negative. No need for antibiotics at this time. Fecal system in place. Stool studies pending. C diff culture pending. Electrolytes being replaced. Will advance diet as tolerated. Will discuss further with nephrology about plan of care. I will turn the service over to the hospitalist team tomorrow. I will go over the plan of care with him. Acute on chronic renal failure stage 4: This has improved with IV fluid hydration and vasopressor therapy. Nephrology continues to adjust fluids and electrolytes. Continue with the recommendation. Anemia chronic disease: Continue monitor hemoglobin closely. If hemoglobin below 7 patient will likely require medication. Elevated troponin with history of CAD/AICD likely ischemic demand: Overall stable. Will monitor closely. Case discussed with cardiology. No intervention needed at this time. Continue DVT prophylaxis. Diabetes mellitus type 2: Metformin has been discontinued. Continue with Accu- Cheks and sliding scale. Hypertension: Continue to hold her blood pressure medications. Continue as above. COPD: Maintain oxygen greater than 93%. Morbid obesity: Lifestyle modification education will be addressed. Time Spent Managing Pts Care (In Minutes): 55
[2019-06-18] MEDS ORDERED: CALCIUM GLUC 10% INJ 4.65 MEQ in NA CHLORIDE 0.9% 100 ML IV ONE ×2 (12:00→17:53)
[2019-06-18] MEDS: POTASS/SODIUM PHOSPHATE 1 PKT POWD.PACK PO SCH ×3 (12:24→14:42)
--- NOTE | 2019-06-18 13:18 | CON ---
Date of Consultation: 06/18/2019 Reason For Consultation: Elevated troponin and renal failure. History Of Present Illness: Ms. Harp is a 69-year-old black woman. She is [facility]. She has seen Dr. Levy in the past. She also sees Dr. Avery. She has an extensive past medical history, but mainly has a history of idiopathic cardiomyopathy. She has a defibrillator. He r chart was listed that she has CAD but I am not so sure of that. I will check her records in the of fice. She has a history of COPD, diabetes, hypertension, chronic renal insufficiency, anemia, panic disorder, rheumatoid arthritis. She came in with chronic diarrhea, creatinine of 1.6. Her troponin was elevated at 0.20 and I was consulted. Of interest is that she had severe dehydration with a magn esium of 0.8, a calcium of 6.3. Her potassium was 1.8. Her chest x-ray showed LVH and a negative est x-ray. She is getting hydration, potassium supplementation, calcium supplementation, and magnesi um supplementation. Her last blood pressure was 78/45, is on dopamine. Past Medical History: As stated above. Allergies: INCLUDE ASPIRIN, PENICILLIN, AND MOTRIN. Review of Systems: Negative. Social History: Negative. Family History: Noncontributory. Medications: At home include metformin, potassium, Diovan, Victoza, Lasix, inhalers, and steroids. Physical Examination: General: She was actually last seen in no acute distress. Vital Signs: Stable. She was in a sinus rhythm. She weighed 326 pounds. HEENT: Negative. Neck: Supple with no bruit. Chest: Clear. Cardiac: Revealed a regular rhythm and rate. No murmurs, gallops, or rubs. Abdomen: Benign. Extremities: Revealed no clubbing, cyanosis. She had 1+ edema. Diagnostic Data: As stated earlier. Impression And Plan: Hypotension with severe electrolyte abnormalities including low magnesium, low calcium, and low potassium. All that is secondary to chronic diarrhea. Her elevated troponin is def initely not an acute coronary syndrome. This is secondary to hypotension and electrolyte abnormaliti es including renal failure. She does, however, have a history of presumed coronary artery disease. She has a history of defibrillator and I would do an echocardiogram on her in the morning. I will ch emily her records in the office more extensively. Her other problems include a history of cardiomyopat hy with defibrillator. Apparently recent check at Dr. Avery's office was within normal function. She has a history of chronic obstructive pulmonary disease that seems to be stable. Her diabetes is well controlled. Her blood pressure is low right now but responds to dopamine very well. Her other issues include chronic renal insufficiency, anemia, panic disorder, and rheumatoid arthritis are cont rolled. I think when she does go home, we should definitely change her Lasix to a potassium-sparing diuretic. Continue Diovan at home and potassium. We will see what her echocardiogram shows. See wh at her blood pressure does with hydration and dopamine. Watch her electrolytes and I will follow her later. KIRA/NATE Voice ID: [id number] Report ID: [id number]
[2019-06-18 14:26] LABS: C.diff Antigen/Toxin Ag neg : Tox neg (NEG : NEG)
[2019-06-18 16:27] LABS: Potassium 2.4 mmol/L (3.5-5.1)
[2019-06-18 16:36] LABS: Magnesium 1.6 mg/dL (1.8-2.4); Phosphorus 1.4 mg/dL (2.5-4.9)
[2019-06-18] MEDS ORDERED: POTASSIUM PHOS IN 0.9 % NACL 15 MMOL/250 ML BAG IV ONE (17:53)
[2019-06-18] MEDS ORDERED: POTASSIUM CL SA 10 MEQ TAB PO ONE (17:57)
[2019-06-18] MEDS ORDERED: KCL 20 MEQ/100 mL IVPB 20 MEQ/100 ML BAG IV SCH (18:00)
[2019-06-18] MEDS: TRAMADOL HCL 50 MG TAB PO PRN (18:31)
[2019-06-18] MEDS ORDERED: MAGNESIUM SULFATE 1 gm IVPB 1 GM/100 ML BAG IV ONE (18:56)
--- NOTE | 2019-06-18 22:25 | PN ---
Date of Progress Note: 06/18/2019 Chief Complaint: Acute kidney injury, moderately severe, borderline oliguric, associated with renal hypoperfusion and hypotension. The patient required calcium replacement in view of hypotension. Patient was found to have severe hypokalemia, metabolic alkalosis, was started on IV fluids for blood pressure support as well as she was started on pressors and cultures of the blood were obtained to rule out is bacteremia. Patient was found to have multiple electrolyte abnormalities including hypomagnesemia, hypokalemia, metabolic alkalosis, bicarbonate was up to 36, potassium was 1.6. With replacement of electrolytes, doing better. Potassium level is improving gradually. Patient was found to have severe hyperparathyroidism and was started on calcitriol for control of hypocalcemia. Vitamin D level is pending. Review of Systems: Denies chest pain, palpitations. Physical Examination: Lungs: Clear to auscultation bilaterally. Heart: S1, S2. Abdomen: Soft. Benign. Nontender. Extremities: No edema. Laboratory Data: Hemoglobin 9.8, WBC 8.8, platelet count 279,000. Sodium 142, potassium 2.4, chloride 108, CO2 of 29, BUN 13, creatinine 1.27, glucose 120, phosphorus 1.4, magnesium 1.6, calcium 7.9. Impression And Plan: 1. Multiple electrolyte abnormalities. Prior to this admission, patient had severe diarrhea and presented with hypokalemia, metabolic alkalosis, hypophosphatemia, and hypomagnesemia. Plan is to monitor electrolytes and adjust replacement accordingly. Potassium is improving. Continue IV fluids. Patient was treated with D10 for hypoglycemia and normal saline for hypotension. Patient received midodrine as well as she was started on a dopamine drip. Recommend to check cortisol level and TSH level. 2. Hypotension, is resolving. Patient is undergoing cardiac workup as well as microbiology test was obtained to rule out bacteremia. Urine culture showed no growth and influenza A and B final report is negative. EB/MODL Voice ID: [id number] Report ID: [id number] ROMEO
[2019-06-19] MEDS: D5 0.9 NS 1,000 ML IV SCH ×3 (00:32→17:28)
[2019-06-19] MEDS: MIDODRINE HCL 5 MG TABLET PO SCH ×3 (00:33→17:29)
[2019-06-19 05:36] LABS: Absolute Lymphocytes (CBC) 1.2 K/uL (0.7-4.9); Basophils % 0.2 % (0-1.3); Hematocrit 27.1 % (36.0-45.0); Lymphocytes % 17.5 % (15.3-44.8); MPV 8.7 fL (7.6-11.3); RBC Red Blood Cell Count 2.81 M/uL (3.86-4.86)
[2019-06-19 05:48] LABS: Magnesium 1.7 mg/dL (1.8-2.4); Phosphorus 2.4 mg/dL (2.5-4.9)
[2019-06-19 05:49] LABS: Potassium 2.3 mmol/L (3.5-5.1)
[2019-06-19] MEDS ORDERED: MAGNESIUM SULFATE 1 gm IVPB 1 GM/100 ML BAG IV ONE ×2 (06:30→19:30)
[2019-06-19] MEDS ORDERED: POTASSIUM PHOS IN 0.9 % NACL 15 MMOL/250 ML BAG IV ONE ×2 (06:30→19:30)
[2019-06-19] MEDS ORDERED: POTASSIUM CL SA 10 MEQ TAB PO ONE ×2 (07:00→19:30)
[2019-06-19] MEDS: INSULIN -REGULAR HUMAN 50 UNIT/0.5 ML ML SQ SCH ×4 (07:30→21:00)
[2019-06-19] MEDS: CALCITROL 0.25 MCG CAP PO SCH (09:39)
[2019-06-19] MEDS: LACTOBACILLUS/ACIDOPHILUS TAB PO SCH ×3 (09:40→20:07)
[2019-06-19] MEDS: CALCIUM CARBONATE 500 MG TAB PO SCH ×4 (09:40→21:00)
[2019-06-19] MEDS: KCL 20 MEQ/100 mL IVPB 20 MEQ/100 ML BAG IV SCH ×2 (09:40→12:50)
[2019-06-19] MEDS: CLOPIDOGREL 75 MG TABLET PO SCH (09:41)
[2019-06-19] MEDS: THIAMINE HCL 100 MG TABLET PO SCH (09:41)
[2019-06-19] MEDS: SPIRONOLACTONE 25 MG TABLET PO SCH (09:41)
[2019-06-19] MEDS: HEPARIN 5000 UNIT/ML 1 ML VIAL SQ SCH ×2 (09:42→21:01)
[2019-06-19] MEDS: MAGNESIUM OXIDE 400 MG TAB PO SCH ×2 (09:45→20:07)
[2019-06-19] MEDS: DEXTROSE 10%-WATER 500 ML IV SCH (11:42)
--- NOTE | 2019-06-19 11:54 | P.PN ---
Subjective Date of Service: 06/19/19 Primary Care Provider: Dr. Mason Chief Complaint: Weakness and dizziness It appears the diarrhea has slowed down. Fecal management system is still in place. Severe hypokalemia today. Patient denies any complain. She denies any abdominal pain. She has good urine output. No fever. Physical Examination - Vital Signs Temperature: 97.9 F Blood Pressure: 144/56 Pulse: 98 Respirations: 32 Pulse Ox (%): 100 - Physical Exam General: Alert, In no apparent distress, Oriented x3 HEENT: Mucous membr. moist/pink, Sclerae nonicteric Neck: Supple Respiratory: Clear to auscultation bilaterally, Normal air movement Cardiovascular: No edema, Normal pulses, Regular rate/rhythm, Normal S1 S2 Gastrointestinal: Normal bowel sounds, Soft and benign, Non-distended, No tenderness Musculoskeletal: No swelling, No erythema Integumentary: No rashes Neurological: Normal strength at 5/5 x4 extr, Normal affect - Studies Microbiology Data (last 24 hrs): 06/16/19 16:58 Throat Culture & Sensitivity - Final NORMAL UPPER RESPIRATORY ROLY GROWN. Medications List Reviewed: Yes Assessment And Plan - Current Problems (Diagnosis) (1) Hypovolemic shock Current Visit: Yes Status: Acute (2) Diarrhea Current Visit: Yes Status: Acute (3) Hypokalemia Current Visit: Yes Status: Acute (4) Hypophosphatemia Current Visit: Yes Status: Acute (5) Hypocalcemia Current Visit: Yes Status: Acute (6) Hypomagnesemia Current Visit: Yes Status: Acute (7) Acute renal failure Current Visit: Yes Status: Acute (8) Elevated troponin Current Visit: Yes Status: Acute (9) Anemia Current Visit: Yes Status: Acute (10) DM type 2 (diabetes mellitus, type 2) Current Visit: Yes Status: Chronic (11) COPD (chronic obstructive pulmonary disease) Current Visit: Yes Status: Chronic (12) Morbid obesity Current Visit: Yes Status: Chronic - Plan Continue supportive measures with IV hydration, correct electrolyte abnormalities. Nephrology input appreciated. Start antimotility agent. Follow stool studies. Continue telemetry. Diet as tolerated. Follow up echocardiogram regarding elevated troponin. Insulin sliding scale for glucose management. Metformin is on hold.
--- NOTE | 2019-06-19 12:02 | ECHO ---
HEIGHT: 5 ft 4 in WEIGHT: 322 lb 8 oz DATE OF STUDY: 05/21/[address]: Tang Alford MD 2-DIMENSIONAL: YES M.MODE: YES DOPPLER: YES COLOR FLOW: YES TDS: NO PORTABLE: NO DEFINITY: NO BUBBLE STUDY: NO DIAGNOSIS: CEREBRAL VASCULAR ACCIDENT CARDIAC HISTORY: CATHERIZATION: NO SURGERY: NO PROSTHETIC VALVE: NO PACEMAKER: DEFIBRILLATOR MEASUREMENTS (cm) DIASTOLIC (NORMALS) SYSTOLIC (NORMALS) IVSd 1.1 (0.6-1.2) LA Diam (1.9-4.0) LVEF 53% LVIDd 3.9 (3.5-5.7) LVIDs 2.9 (2.0-3.5) %FS 27% LVPWd 1.2 (0.6-1.2) Ao Diam 3.0 (2.0-3.7) 2 DIMENSIONAL ASSESSMENT: RIGHT ATRIUM: NORMAL LEFT ATRIUM: NORMAL RIGHT VENTRICLE: PERMANENT PACEMAKER LEFT VENTRICLE: NORMAL TRICUSPID VALVE: NORMAL MITRAL VALVE: NORMAL PULMONIC VALVE: NORMAL AORTIC VALVE: NORMAL PERICARDIAL EFFUSION: NONE AORTIC ROOT: NORMAL LEFT VENTRICULAR WALL MOTION: NORMAL. DOPPLER/COLOR FLOW: NORMAL. COMMENTS: TECHNICALLY DIFFICULT STUDY. NORMAL LEFT VENTRICULAR SIZE AND FUNCTION. NO WALL MOTION ABNORMALITY. 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 NO EFFUSION. TECHNOLOGIST: TRANG SHAH
[2019-06-19 18:00] LABS: Magnesium 1.5 mg/dL (1.8-2.4); Phosphorus 2.4 mg/dL (2.5-4.9)
[2019-06-19 18:01] LABS: Potassium 2.7 mmol/L (3.5-5.1)
[2019-06-19] MEDS ORDERED: D5 0.9 NS 1,000 ML IV SCH (20:00)
--- NOTE | 2019-06-19 20:38 | PN ---
Ms. Harp had come in with acute renal failure, acute on chronic diarrhea, elevated troponin. She h as a history of CAD, CHF, and AICD. She was hypotensive yesterday at 78/45 with low magnesium, low p otassium, and low calcium. Her creatinine was 1.66. Her hemoglobin was 9.8. Overnight, her blood p ressure has improved to 142/97. She is in sinus tachycardia. Her creatinine is 1.12. Echocardiogra m that was done today showed actually a normal ejection fraction without any wall motion abnormalitie s. Her potassium today was 2.3, calcium is 8.2, magnesium is 1.7. She continues to receive suppleme ntation. Nephrology is following. I suggest using Aldactone now that her blood pressure is better. Hopefully that will help with at least her potassium. We will continue to follow her creatinine. KIRA/NATE Voice ID: [id number] Report ID: [id number]
[2019-06-19] MEDS ORDERED: KCL 20 MEQ/100 mL IVPB 20 MEQ/100 ML BAG IV SCH (22:30)
--- NOTE | 2019-06-19 23:32 | PN ---
Date of Progress Note: 06/19/2019 Chief Complaint: Acute kidney injury, prerenal azotemia, nonoliguric, ATN associated with multiple electrolyte abnormalities, hypokalemia, hypomagnesemia , hypocalcemia. History Of Present Illness: The patient presented to the hospital because of diarrhea, generalized weakness. She was found to have severe hypokalemia. She is on potassium replacement and received phosphorus and calcium replacement as well. Patient was found to have multiple electrolyte abnormalities including hypomagnesemia, hypokalemia, metabolic alkalosis. Bicarbonate was up to 36, potassium was 1.6. Patient was found to have severe hyperparathyroidism and was started on calcitriol to control hypocalcemia. Review of Systems: Denies fever or chills. Physical Examination: Lungs: Clear to auscultation bilaterally. Heart: S1, S2. Abdomen: Soft, benign. Extremities: No edema. Impression And Plan: 1. Multiple electrolyte abnormalities. Prior to this admission, patient had severe diarrhea, presented with hypokalemia, metabolic alkalosis secondary to diarrhea. She had hypophosphatemia and hypomagnesemia. Plan is to monitor electrolytes. Adjust treatment accordingly. Continue IV fluids. 2. The patient was found to have hypoglycemia and received the D10 infusion. Continue thiamine. 3. Hypotension is resolving. Cardiac workup was done to rule out acute coronary syndrome and microbiology tests were obtained to rule out bacteremia. I spent total 36 min including 25 min to coordinate care plan. KLAUDIA/NATE Voice ID: [id number] Report ID: [id number] ROMEO
[2019-06-20] MEDS: MIDODRINE HCL 5 MG TABLET PO SCH ×3 (01:00→16:56)
[2019-06-20] MEDS: DEXTROSE 10%-WATER 500 ML IV SCH ×2 (01:19→21:02)
[2019-06-20 05:35] LABS: Absolute Lymphocytes (CBC) 1.5 K/uL (0.7-4.9); Basophils % 0.3 % (0-1.3); Hematocrit 29.5 % (36.0-45.0); Lymphocytes % 22.6 % (15.3-44.8); MPV 8.6 fL (7.6-11.3); RBC Red Blood Cell Count 3.08 M/uL (3.86-4.86)
[2019-06-20 05:59] LABS: Phosphorus 3.4 mg/dL (2.5-4.9)
[2019-06-20 06:01] LABS: Magnesium 1.4 mg/dL (1.8-2.4); Potassium 2.4 mmol/L (3.5-5.1)
[2019-06-20] MEDS: KCL 20 MEQ/100 mL IVPB 20 MEQ/100 ML BAG IV SCH ×6 (06:39→23:09)
[2019-06-20] MEDS ORDERED: Magnesium Sulfate 2gm IVPB 2 G/50 ML BAG IV ONE ×2 (07:00→12:13)
[2019-06-20] MEDS: INSULIN -REGULAR HUMAN 50 UNIT/0.5 ML ML SQ SCH ×4 (07:30→21:00)
[2019-06-20] MEDS: CALCIUM CARBONATE 500 MG TAB PO SCH ×5 (09:00→20:09)
[2019-06-20] MEDS: HEPARIN 5000 UNIT/ML 1 ML VIAL SQ SCH ×2 (09:18→20:08)
[2019-06-20] MEDS: CLOPIDOGREL 75 MG TABLET PO SCH (09:19)
[2019-06-20] MEDS: CALCITROL 0.25 MCG CAP PO SCH (09:19)
[2019-06-20] MEDS: SPIRONOLACTONE 25 MG TABLET PO SCH (09:19)
[2019-06-20] MEDS: THIAMINE HCL 100 MG TABLET PO SCH (09:19)
[2019-06-20] MEDS: MAGNESIUM OXIDE 400 MG TAB PO SCH ×2 (09:22→20:09)
--- NOTE | 2019-06-20 12:05 | P.PN ---
Subjective Date of Service: 06/20/19 Primary Care Provider: Dr. Mason Chief Complaint: Weakness and dizziness Patient had multiple episodes of watery diarrhea. Fecal management system was out. Severe hypokalemia persist. Patient denies any complain. She denies any abdominal pain. She has polyuria. No fever. Physical Examination - Vital Signs Temperature: 98.7 F Blood Pressure: 108/84 Pulse: 104 Respirations: 25 Pulse Ox (%): 98 - Physical Exam General: Alert, In no apparent distress, Oriented x3 HEENT: Mucous membr. moist/pink, Sclerae nonicteric Neck: Supple Respiratory: Clear to auscultation bilaterally, Normal air movement Cardiovascular: No edema, Regular rate/rhythm, Normal S1 S2 Gastrointestinal: Normal bowel sounds, Soft and benign, Non-distended, No tenderness Musculoskeletal: No swelling Integumentary: No rashes Neurological: Normal speech, Normal strength at 5/5 x4 extr - Studies Medications List Reviewed: Yes Assessment And Plan - Current Problems (Diagnosis) (1) Hypovolemic shock Current Visit: Yes Status: Acute (2) Diarrhea Current Visit: Yes Status: Acute (3) Hypokalemia Current Visit: Yes Status: Acute (4) Hypophosphatemia Current Visit: Yes Status: Acute (5) Hypocalcemia Current Visit: Yes Status: Acute (6) Hypomagnesemia Current Visit: Yes Status: Acute (7) Acute renal failure Current Visit: Yes Status: Acute (8) Elevated troponin Current Visit: Yes Status: Acute (9) Anemia Current Visit: Yes Status: Acute (10) DM type 2 (diabetes mellitus, type 2) Current Visit: Yes Status: Chronic (11) COPD (chronic obstructive pulmonary disease) Current Visit: Yes Status: Chronic (12) Morbid obesity Current Visit: Yes Status: Chronic - Plan Continue supportive measures with IV hydration, correct electrolyte abnormalities. Optimize magnesium level. Nephrology is following. Check fecal leukocyte and start antimotility agent pending fecal leukocyte result. Follow stool studies. GI consult Continue telemetry. Diet as tolerated. Echo results reviewed, sub optimal study but reported as unremarkable. Insulin sliding scale for glucose management.
[2019-06-20] MEDS: D5 0.9 NS 1,000 ML with POTASSIUM CL 40 MEQ IV SCH ×2 (12:11)
[2019-06-20] MEDS ORDERED: LOPERAMIDE HCL 2 MG CAPSULE PO STA (16:20)
[2019-06-20 16:33] LABS: UR PROTEIN 10 mg/dL (<11.9)
[2019-06-20 16:36] LABS: UR CREAT < 13.0 mg/dL (20-320)
[2019-06-20] MEDS: METRONIDAZOLE 500mg IVPB 500 MG/100 ML BAG IV SCH (16:57)
--- NOTE | 2019-06-20 19:45 | CON ---
History Of Present Illness: Ms. Harp is a 69-year-old patient with multiple medical problems, who comes to the hospital with nausea several days ago and diarrhea. It has been difficult to control he r diarrhea to the point that electrolytes are not normal. She was found to have several days ago juan r e distended colon on the left side and although she was asymptomatic, GI and surgical consult were ob tained for options. At this moment, she has no abdominal pain. She had bowel movement today several times. There is no peritonitis at this moment. There is no bright red blood per rectum. She state d she is chronically constipated and she has been told before about the colon. Allergies: ASPIRIN, PENICILLIN, MOTRIN. Social History: She smoked in the past. She was counseled in the past to stop smoking. Past Medical History: Reviewed including COPD, coronary artery disease, she has a defibrillator. Mo rbid obesity, rheumatoid arthritis, renal insufficiency, hypertension, diabetes. Family History: Noncontributory. Review of Systems: 10 points otherwise unremarkable. Physical Examination: General: Patient is awake and alert. No distress. HEENT: Pupils are equal and reactive. Abdomen: Soft and depressible. No guarding or rebound. Softly distended. Rectal: Deferred. Extremities: Good capillary refill. Laboratory Data: WBC count of 6.7, hemoglobin of 9.6. Potassium is 2.4, magnesium is 1.4. CAT scan reviewed and that was done 06/16/2019 with the findings of distended bowel. Assessment: A 69-year-old patient with chronic distended bowel, diarrhea. Culture is still pending. Clostridium difficile colitis preliminary was negative. They are trying to control her diarrhea. She is comfortable. She has no peritonitis. We saw the CAT scan, noticed that redundant bowel on th e left side. Gastroenterology, Dr. Jean Baptiste, just saw her a few minutes ago. I just had a conversat ion with him trying to discuss different options. They are going to be treating the patient from the medical standpoint. They know I am available in case something extreme has to be done like an end-c olostomy just to relieve the colon has to be done, then sure I will be happy to help in that case. I n the meantime once this is over, if she improves, then they will try colonoscopy on her first. So, I will follow the patient with you as the case develops. Patient understands. She does not want any surgery at this moment, especially with the national emergency around. SILVANO/NATE Voice ID: [id number] Report ID: [id number]
[2019-06-20] MEDS: CIPROFLOXACIN 400mg IV 400 MG/200 ML BAG IV SCH (20:08)
--- NOTE | 2019-06-20 21:14 | PN ---
Date of Progress Note: 06/20/2019 History: Patient was admitted with acute kidney injury, hypokalemia, hypomagnesemia, found to have hyperparathyroidism. Patient was started on calcitriol because of significant hypocalcemia. Patient had significant colitis with diarrhea. Today, according to her, her diarrhea has been subsided. Physical Examination: Vital Signs: Blood pressure of 111/67, tachycardic. Chest: Clear to auscultation. Heart: S1, S2 regular. Abdomen: Distended. Extremities: Trace edema. Laboratory Data: WBC 6.7, H and H 9.6/29.5, platelets 264. Sodium 145, potassium 2.4, bicarb 31, creatinine 1, GFR of 62, calcium 8.4, phosphorus 3.3 , magnesium 1.4. PTH 208. Medications: Current medications the patient is on include: 1. Ciprofloxacin. 2. Metronidazole. 3. Breathing treatment. 4. Midodrine. 5. Plavix. 6. Calcium carbonate 1000 t.i.d. 7. Spironolactone. Assessment And Plan: 1. Hypokalemia, hypomagnesemia, hypocalcemia secondary to gastrointestinal loss/ Pschycogenic polydepsia . I am going to go ahead and continue aggressive replacement. I agree with current IV hydration with potassium supplement. I am going to continue spironolactone and will follow up. 2. Hyperparathyroidism, mostly secondary to magnesium deficiency secondary to gastrointestinal loss. Continue calcitriol for the time being. We will follow up. 3. Colitis. Follow up with GI . RACHELLE/NATE Voice ID: [id number] Report ID: [id number] ROMEO
[2019-06-20 22:29] LABS: Potassium 2.4 mmol/L (3.5-5.1)
[2019-06-21] MEDS: METRONIDAZOLE 500mg IVPB 500 MG/100 ML BAG IV SCH ×3 (00:48→17:34)
[2019-06-21] MEDS: KCL 20 MEQ/100 mL IVPB 20 MEQ/100 ML BAG IV SCH ×7 (00:49→22:38)
[2019-06-21] MEDS: MIDODRINE HCL 5 MG TABLET PO SCH ×2 (01:00→08:44)
[2019-06-21] MEDS: LOPERAMIDE HCL 2 MG CAPSULE PO PRN (02:00)
[2019-06-21 06:22] LABS: Absolute Lymphocytes (CBC) 1.1 K/uL (0.7-4.9); Basophils % 0.4 % (0-1.3); Hematocrit 27.9 % (36.0-45.0); Lymphocytes % 17.9 % (15.3-44.8); MPV 8.6 fL (7.6-11.3); RBC Red Blood Cell Count 2.92 M/uL (3.86-4.86)
[2019-06-21 06:32] LABS: Magnesium 1.7 mg/dL (1.8-2.4); Phosphorus 2.3 mg/dL (2.5-4.9)
[2019-06-21 06:33] LABS: Potassium 2.7 mmol/L (3.5-5.1)
[2019-06-21] MEDS: D5 0.9 NS 1,000 ML with POTASSIUM CL 40 MEQ IV SCH ×2 (06:54)
[2019-06-21] MEDS ORDERED: POTASSIUM PHOS IN 0.9 % NACL 15 MMOL/250 ML BAG IV ONE (07:00)
[2019-06-21] MEDS: INSULIN -REGULAR HUMAN 50 UNIT/0.5 ML ML SQ SCH ×4 (07:30→21:00)
[2019-06-21] MEDS ORDERED: MAGNESIUM SULFATE 1 gm IVPB 1 GM/100 ML BAG IV ONE (07:30)
[2019-06-21] MEDS: CALCIUM CARBONATE 500 MG TAB PO SCH ×4 (08:43→21:19)
[2019-06-21] MEDS: CLOPIDOGREL 75 MG TABLET PO SCH (08:43)
[2019-06-21] MEDS: MAGNESIUM OXIDE 400 MG TAB PO SCH ×2 (08:44→21:21)
[2019-06-21] MEDS: CALCITROL 0.25 MCG CAP PO SCH (08:44)
[2019-06-21] MEDS: THIAMINE HCL 100 MG TABLET PO SCH (08:44)
[2019-06-21] MEDS: SPIRONOLACTONE 25 MG TABLET PO SCH ×2 (08:45→21:19)
[2019-06-21] MEDS: CIPROFLOXACIN 400mg IV 400 MG/200 ML BAG IV SCH ×2 (08:47→21:18)
[2019-06-21] MEDS: HEPARIN 5000 UNIT/ML 1 ML VIAL SQ SCH ×2 (08:48→21:20)
[2019-06-21 09:04] LABS: Vitamin D 1,25-Dihydroxy Total 71 pg/mL (18-72); Vitamin D,1,25-OH2, D2 18 pg/mL
[2019-06-21] MEDS ORDERED: MAGNESIUM 50% 3 GM in NA CHLORIDE 0.9% 100 ML IV ONE (09:45)
[2019-06-21] MEDS ORDERED: POTASSIUM 25 MEQ EFFERV TAB PO ONE (09:47)
[2019-06-21] MEDS ORDERED: POTASSIUM CL SA 10 MEQ TAB PO ONE ×2 (11:00→23:06)
--- NOTE | 2019-06-21 11:38 | P.PN ---
Subjective Date of Service: 06/21/19 Primary Care Provider: Dr. Mason Chief Complaint: Weakness and dizziness Diarrhea has improved after starting Immodium. Patient has been drinking a lot of fluids and also getting IV fluids with corresponding polyuria. Potassium level is still low. She reports loss of appetite. She denies any abdominal pain. She has polyuria. No fever. Physical Examination - Vital Signs Temperature: 98.5 F Blood Pressure: 130/78 Pulse: 107 Respirations: 21 Pulse Ox (%): 100 - Physical Exam General: Alert, In no apparent distress, Oriented x3 HEENT: Mucous membr. moist/pink Neck: Supple Respiratory: Clear to auscultation bilaterally, Normal air movement Cardiovascular: No edema, Regular rate/rhythm, Normal S1 S2 Gastrointestinal: Normal bowel sounds, Soft and benign, Non-distended, No tenderness Musculoskeletal: No swelling, No erythema Integumentary: No rashes, No erythema Neurological: Normal strength at 5/5 x4 extr, Cranial nerves 3-12 intact, Normal affect - Studies Medications List Reviewed: Yes Assessment And Plan - Current Problems (Diagnosis) (1) Hypovolemic shock Current Visit: Yes Status: Acute (2) Diarrhea Current Visit: Yes Status: Acute (3) Hypokalemia Current Visit: Yes Status: Acute (4) Hypophosphatemia Current Visit: Yes Status: Acute (5) Hypocalcemia Current Visit: Yes Status: Acute (6) Hypomagnesemia Current Visit: Yes Status: Acute (7) Acute renal failure Current Visit: Yes Status: Acute (8) Elevated troponin Current Visit: Yes Status: Acute (9) Anemia Current Visit: Yes Status: Acute (10) DM type 2 (diabetes mellitus, type 2) Current Visit: Yes Status: Chronic (11) COPD (chronic obstructive pulmonary disease) Current Visit: Yes Status: Chronic (12) Morbid obesity Current Visit: Yes Status: Chronic - Plan Continue supportive measures with IV hydration, correct electrolyte abnormalities. Optimize magnesium level. Nephrology is following. Diarrhea is responding to Immodium Follow stool studies. GI and surgery consult appreciated. Continue telemetry. IV potassium replacement. Advanced diet as tolerated Insulin sliding scale for glucose management.
--- NOTE | 2019-06-21 12:37 | PN ---
Date of Progress Note: 06/21/2019 Subjective: Patient was admitted with colitis, had diarrhea, had depleted electrolyte. Patient been on aggressive replacement. Patient still had diarrhea yesterday. Physical Examination: Vital Signs: Blood pressure 130/78, pulse of 107. Chest: Clear to auscultation. Heart: S1, S2. Regular. Abdomen: Soft, mild tenderness. Extremities: Trace edema. Laboratory Data: WBC 6.4, H and H 9.1/27.9, platelets 260. Sodium 147 potassium 2.7, bicarb 31, BUN 4, creatinine down to 1, GFR of 63, calcium 8, phosphorus 2.3, magnesium of 1.7. Current Medications: The patient on: 1.Cipro. 2.Metronidazole. 3.Spironolactone 25 daily. 4.Plavix. 5.Calcium carbonate 1000 t.i.d. 6.Loperamide. 7.Zofran. 8.Tramadol. 9.D5 normal saline with 40 KCl. Assessment And Plan: 1.Acute kidney injury secondary to prerenal, recovered, resolved. 2.Hypokalemia, hypomagnesemia, hypophosphatemia. We will continue aggressive supplement on the pota ssium. Patient received yesterday 60 mEq without any significant improvement. We will supplement of total of 120 supplement and 40 through with maintenance, so total of 160 mEq of potassium and we kay l follow up. 3.For the phosphor, we will continue potassium phosphate. For the magnesium, we will supplement wit h total of 4 g today and we will monitor. 4.Secondary hyperparathyroid secondary to hypomagnesemia. Continue calcitriol. We will follow up P TH after complete correction of the magnesium. 5.Colitis. Continue current antibiotic. Follow up with Primary. 6.Contraction alkalosis secondary to gastrointestinal loss. Continue intravenous hydration. I am g oing to change intravenous fluid to D5 half normal with potassium and we will follow up. 7.Given the significant depletion, I am going to go ahead and send for cortisol and send for urine e lectrolytes to evaluate if there is any salt wasting. RACHELLE/NATE Voice ID: [id number] Report ID: [id number]
[2019-06-21] MEDS: DEXTROSE 10%-WATER 500 ML IV SCH (13:37)
[2019-06-21] MEDS: SIMETHICONE 80 MG TAB PO SCH ×2 (13:41→21:20)
[2019-06-21] MEDS: D5.45NS W/KCL 40MEQ 40 MEQ/1,000 ML BAG IV SCH ×2 (13:41→22:00)
--- NOTE | 2019-06-21 13:52 | CON ---
Reason For Consultation: I was consulted for sepsis. History Of Present Illness: Patient is a 69-year-old female with significant history of hypertension , diabetes mellitus, hyperlipidemia, COPD, coming in with body aches, diarrhea, nausea, vomiting. Th e patient's diarrhea has improved after she was put on Cipro and Flagyl. Denies any other problems e xcept abdominal discomfort and diarrhea with nausea and vomiting, which has improved since yesterday. No other complaints at this time. Past Medical History: As per HPI. Social History: Lives with daughter. Nonsmoker, nondrinker. Family History: Noncontributory. Medications: Cipro and Flagyl. See MARs for other medications. Allergies: PENICILLIN, ASPIRIN, IBUPROFEN. Review of Systems: A 10-point review was performed. Physical Examination: General: This is a 69-year-old female, lying in bed, not in any acute distress. Vital Signs: Temperature 98, pulse 107, respirations 21, blood pressure 130/78. HEENT: Unremarkable. Neck: Supple. Lungs: Clear to auscultation. Heart: S1, S2. Regular. Abdomen: Distended. Bowel sounds present. Extremities: Trace edema. Laboratory Data: Shows WBC 6.4, hemoglobin 9.1, platelets 260. Chemistry shows sodium 147, potassiu m 2.7, chloride 110, bicarb 31, BUN 4, creatinine 1, glucose is 110. Micro data to C difficile and c ultures and leukocytes are pending. Blood cultures are negative for [address] abdomen and pelvis done on 06/15 shows dilated colon fragment from hepatic flexure to the distal rectum. No distal rec archie obstructing mass identified. Colon finding does not meet megacolon diagnostic criteria. Assessment And Plan: This is a 69-year-old female with diarrhea. Cultures and leukocytosis and C di fficile studies are pending. Patient is improving after Flagyl and Cipro. We will also recommend pr obiotic and Questran if needed pending leukocytes and C difficile. We will also continue current the rapy, total day course is 10 days. We will follow the patient closely. NF/MODL Voice ID: [id number] Report ID: [id number]
[2019-06-21] MEDS: TRAMADOL HCL 50 MG TAB PO PRN (15:32)
--- NOTE | 2019-06-21 15:55 | CON ---
Date of Consultation: 06/20/2019 Reason For Consultation: Profuse diarrhea. History Of Presenting Illness: Patient is a 69-year-old woman with past medical his tory of hypertension, diabetes, dyslipidemia, COPD, came to the ER because of feeling of weakness and body aches, dizziness, nausea, and 1 episode of vomiting. She also reported 5 days of diarrhea. Th e diarrhea progressively got worse and in the hospital apparently she has had more than a few liters of output and over the last 24 hours. GI consultation was requested for this diarrhea as well. She has also had significant electrolyte abnormalities, . Imaging had revealed mild dilation o f colon without any obstructive concern. Past Medical History: As above. In addition, she does have a history of congestive heart failure an d coronary artery disease. Social History: Denies any toxic habits. Allergies: TO ASPIRIN, PENICILLIN, AND IBUPROFEN. Home Medications: As in the chart. Family History: Noncontributory. Review of Systems: GI: As in HPI. General: As in HPI otherwise negative. 10 point review of system is negative. Physical Examination: Vitals: On presentation, she was . Blood pressure is 88/47, but it has improved. Current ly, she is afebrile, not tachycardic, not tachypneic. Head: Atraumatic, normocephalic. Eyes: Pupils equally reactive. Neck: Supple. Chest: Bilateral air entry. Abdomen: Soft. Mild distention. Bowel sounds are present. Extremities: No pedal edema. Laboratory Data: Has been reviewed as mentioned above significant electrolyte abnormalities. Hemogl obin revealed mild anemia but no acute drop. C diff has come back as negative. Other culture and le ukocyte stain is pending. Impression: 69-year-old woman with single episode of nausea and single episode of vomiting, weakness and profuse diarrhea, which has been documented. Differential is broad. This diarrhea may be relat ed to the systemic condition secondary to other etiology, could also be acute viral or bacterial proc ess given the equity and the fact we rule out C diff, I think I will go ahead with empiric treatment. Plan: I am going to start the patient on Cipro and Flagyl and see how she responds. We will agree w ith surgical consultation for dilated colon and change the diet to a low-fiber, low residue diet, lac tose-free. Also, Imodium as needed. We can give 1 dose now and then will re-evaluate tomorrow catrachita garza if she is having more diarrhea episodes or not. Continue to follow the stool workup. Patient w ill eventually need a colonoscopy in a few weeks time when she is a little better. US/MODL Voice ID: [id number] Report ID: [id number]
[2019-06-21] MEDS: MORPHINE 2 MG/ML SYR IV PRN (17:34)
[2019-06-21 21:31] LABS: Potassium 3.2 mmol/L (3.5-5.1)
[2019-06-21] MEDS: POTASSIUM 25 MEQ EFFERV TAB PO ONE ×2 (21:42→22:38)
[2019-06-22] MEDS: METRONIDAZOLE 500mg IVPB 500 MG/100 ML BAG IV SCH ×3 (00:33→16:22)
[2019-06-22] MEDS: KCL 20 MEQ/100 mL IVPB 20 MEQ/100 ML BAG IV SCH ×3 (00:33→05:10)
[2019-06-22] MEDS: ONDANSETRON 4 MG/2 ML VIAL IV PRN (03:21)
[2019-06-22 06:17] LABS: Magnesium 1.8 mg/dL (1.8-2.4); Potassium 3.8 mmol/L (3.5-5.1)
[2019-06-22] MEDS: DEXTROSE 10%-WATER 500 ML IV SCH ×2 (06:22→23:02)
[2019-06-22] MEDS: INSULIN -REGULAR HUMAN 50 UNIT/0.5 ML ML SQ SCH ×4 (07:30→21:00)
[2019-06-22] MEDS ORDERED: POTASSIUM CL SA 10 MEQ TAB PO ONE ×2 (08:00→20:00)
[2019-06-22] MEDS ORDERED: Magnesium Sulfate 2gm IVPB 2 G/50 ML BAG IV ONE (08:00)
[2019-06-22] MEDS: D5.45NS W/KCL 40MEQ 40 MEQ/1,000 ML BAG IV SCH ×2 (08:00→21:45)
[2019-06-22] MEDS: CLOPIDOGREL 75 MG TABLET PO SCH (08:46)
[2019-06-22] MEDS: THIAMINE HCL 100 MG TABLET PO SCH (08:46)
[2019-06-22] MEDS: CALCIUM CARBONATE 500 MG TAB PO SCH ×5 (08:46→21:33)
[2019-06-22] MEDS: MAGNESIUM OXIDE 400 MG TAB PO SCH ×2 (08:51→21:00)
[2019-06-22] MEDS: SPIRONOLACTONE 25 MG TABLET PO SCH (08:51)
[2019-06-22] MEDS: HEPARIN 5000 UNIT/ML 1 ML VIAL SQ SCH ×2 (08:52→21:30)
[2019-06-22] MEDS: CALCITROL 0.25 MCG CAP PO SCH (08:54)
[2019-06-22] MEDS: SIMETHICONE 80 MG TAB PO SCH ×3 (09:00→21:31)
[2019-06-22] MEDS ORDERED: HALOPERIDOL LACT 5 MG/ML INJ IV ONE (10:03)
[2019-06-22] MEDS ORDERED: HALOPERIDOL LACT 5 MG/ML INJ ONE (10:08)
[2019-06-22] MEDS: CIPROFLOXACIN 400mg IV 400 MG/200 ML BAG IV SCH ×2 (10:12→21:35)
[2019-06-22] MEDS: TRAMADOL HCL 50 MG TAB PO PRN ×2 (10:19→21:33)
--- NOTE | 2019-06-22 13:14 | PN ---
Date of Progress Note: 06/22/2019 Subjective: The patient was admitted with acute kidney injury, depleted sodium and potassium. Physical Examination: Vital Signs: Blood pressure 152/97, pulse of 101. The patient had urine output of 9800. Today so f ar, she has, in the last 5 hours, 1600. Chest: Decreased entry, bilateral base. Heart: S1, S2 regular. Abdomen: Soft, nontender. Extremities: Tenderness on the left knee. +1 edema. Laboratory Data: WBC 6.4, H and H 9.1/26.9, platelets 260. Sodium 148, potassium 3.8, bicarb 30, BU N 4, creatinine 1, calcium 8.5, magnesium 1.8. Current Medications: The patient on, include, 1.Ciprofloxacin. 2.Metronidazole. 3.Plavix. 4.Calcium carbonate. 5.Simethicone. Assessment And Plan: 1.Acute kidney injury secondary to prerenal, secondary to gastrointestinal loss, recovered, resolved , currently polydiuresis secondary to post acute tubular necrosis. I am going to continue to monitor . We will hold spironolactone. 2.Hypokalemia, hypophosphatemia, hypomagnesemia. We will continue aggressive supplement. Diarrhea has been stopped. We will follow up. 3.Secondary hyperparathyroid, secondary to severe hypomagnesemia. Continue calcitriol. We will follow up. 4.Colitis. Continue current antibiotic. RACHELLE/NATE Voice ID: [id number] Report ID: [id number]
--- NOTE | 2019-06-22 15:06 | P.PN ---
Subjective Date of Service: 06/22/19 Primary Care Provider: Dr. Mason Chief Complaint: Weakness and dizziness Patient's diarrhea has improved. She is complaining of bloating and abdominal cramps today. Potassium level has improved. No fever. Positive net fluid balance of 400. She was also agitated and confused this morning. Physical Examination - Vital Signs Temperature: 97.7 F Blood Pressure: 112/90 Pulse: 108 Respirations: 16 Pulse Ox (%): 97 - Physical Exam General: Alert, In no apparent distress, Oriented x3 HEENT: Mucous membr. moist/pink Neck: Supple Respiratory: Clear to auscultation bilaterally, Normal air movement Cardiovascular: No edema, Regular rate/rhythm, Normal S1 S2 Gastrointestinal: Normal bowel sounds, Soft and benign, No tenderness, No rebound, No guarding, Distended (Mildly distended.) Musculoskeletal: No swelling, No erythema Integumentary: No rashes Neurological: Other (Nonfocal.) - Studies Microbiology Data (last 24 hrs): 06/16/19 16:20 Blood - Blood Aerobic Blood Culture - Final No growth in 5 days. 06/16/19 16:20 Blood - Blood Anaerobic Blood Culture - Final 06/16/19 16:05 Blood - Blood Aerobic Blood Culture - Final No growth in 5 days. 06/16/19 16:05 Blood - Blood Anaerobic Blood Culture - Final Medications List Reviewed: Yes Assessment And Plan - Current Problems (Diagnosis) (1) Hypovolemic shock Current Visit: Yes Status: Acute (2) Diarrhea Current Visit: Yes Status: Acute (3) Hypokalemia Current Visit: Yes Status: Acute (4) Hypophosphatemia Current Visit: Yes Status: Acute (5) Hypocalcemia Current Visit: Yes Status: Acute (6) Hypomagnesemia Current Visit: Yes Status: Acute (7) Acute renal failure Current Visit: Yes Status: Acute (8) Elevated troponin Current Visit: Yes Status: Acute (9) Anemia Current Visit: Yes Status: Acute (10) DM type 2 (diabetes mellitus, type 2) Current Visit: Yes Status: Chronic (11) COPD (chronic obstructive pulmonary disease) Current Visit: Yes Status: Chronic (12) Morbid obesity Current Visit: Yes Status: Chronic (13) Behavioral change Current Visit: Yes Status: Acute - Plan Continue supportive measures with IV hydration, correct electrolyte abnormalities. Nephrology is following. Diarrhea has responding to Immodium Fecal leuokocytes: negative GI and surgery consult appreciated. Obtain KUB given increase abdominal distension. Liquid diet for now. Insulin sliding scale for glucose management. Haldol IV p.r.n. for agitation and psychosis.
[2019-06-22] MEDS ORDERED: HALOPERIDOL LACT 5 MG/ML INJ IV PRN (15:09)
--- NOTE | 2019-06-22 17:40 | RAD REPORT ---
EXAM DESCRIPTION: RAD - Abdomen 1 View (KUB) - 06/22/2019 3:40 pm CLINICAL HISTORY: Abdominal distension Pain COMPARISON: ABDOMEN 1 VIEW KUB dated 01/31/2014; Abdomen Pelvis Wo Contrast dated 06/16/2019 FINDINGS: Prominent distention of bowel is present with air. Pneumoperitoneum is not seen. A mechani may bowel obstruction would be favored over adynamic ileus. Consider followup radiographs in 24 hours for continued monitoring.
[2019-06-23] MEDS: METRONIDAZOLE 500mg IVPB 500 MG/100 ML BAG IV SCH ×4 (00:33→23:46)
[2019-06-23] MEDS: D5.45NS W/KCL 40MEQ 40 MEQ/1,000 ML BAG IV SCH ×2 (04:00→09:26)
[2019-06-23 06:09] LABS: Potassium 3.2 mmol/L (3.5-5.1)
[2019-06-23 06:15] LABS: Absolute Lymphocytes (CBC) 1.5 K/uL (0.7-4.9); Basophils % 0.4 % (0-1.3); Hematocrit 27.2 % (36.0-45.0); Lymphocytes % 22.7 % (15.3-44.8); MPV 8.6 fL (7.6-11.3)
[2019-06-23] MEDS: LOPERAMIDE HCL 2 MG CAPSULE PO PRN (06:36)
[2019-06-23] MEDS: INSULIN -REGULAR HUMAN 50 UNIT/0.5 ML ML SQ SCH ×4 (07:30→20:40)
[2019-06-23] MEDS ORDERED: POTASSIUM CL SA 10 MEQ TAB PO ONE (09:00)
[2019-06-23] MEDS: MAGNESIUM OXIDE 400 MG TAB PO SCH ×2 (09:00→20:37)
[2019-06-23] MEDS: THIAMINE HCL 100 MG TABLET PO SCH (09:20)
[2019-06-23] MEDS: CLOPIDOGREL 75 MG TABLET PO SCH (09:21)
[2019-06-23] MEDS: SIMETHICONE 80 MG TAB PO SCH ×3 (09:21→20:37)
[2019-06-23] MEDS: HEPARIN 5000 UNIT/ML 1 ML VIAL SQ SCH ×2 (09:21→20:37)
[2019-06-23] MEDS: CALCITROL 0.25 MCG CAP PO SCH (09:21)
[2019-06-23] MEDS: CALCIUM CARBONATE 500 MG TAB PO SCH ×3 (09:22→20:40)
[2019-06-23] MEDS: CIPROFLOXACIN 400mg IV 400 MG/200 ML BAG IV SCH ×2 (09:22→20:37)
--- NOTE | 2019-06-23 10:01 | RAD REPORT ---
EXAM DESCRIPTION: RAD - Abdomen 1 View (KUB) - 06/23/2019 9:55 am CLINICAL HISTORY: Bowel obstruction Pain COMPARISON: Abdomen 1 View (KUB) dated 06/22/2019; ABDOMEN 1 VIEW KUB dated 01/31/2014 FINDINGS: There continues to be significant distention of bowel loops with air noted, essentially un changed in severity since comparative study. No pneumoperitoneum is suspected. No suspicious calcific ations. IMPRESSION: No significant change is seen since comparative study.
[2019-06-23] MEDS ORDERED: D5W 1,000 ML IV SCH (12:00)
--- NOTE | 2019-06-23 12:21 | PN ---
Subjective: Patient lying in bed, continuing to have loose bowel movement. Denies any other discomf ort at this time. Objective: Vital Signs: Temperature 97, pulse 108, respirations 18, blood pressure 174/77. Lungs: Basal crackles. Heart: S1, S2. Regular. Abdomen: Soft, nontender. Bowel sounds present. Extremities: No edema. Laboratory Data: Shows WBC 6.7, hemoglobin 8.8, platelets 225. Chemistry shows sodium 149, potassiu m 3.2, chloride 114, bicarb 31, BUN 4, creatinine 0.9, glucose 102. KUB done today shows no signific ant changes. Continues to have significant distention of bowel loops. Assessment And Plan: 69-year-old female continued to have diarrhea. No leukocytosis. No WBC and fe may leukocytes. Continue supportive care and hydration. We will follow the patient as needed. NF/MODL Voice ID: [id number] Report ID: [id number]
[2019-06-23] MEDS: D5W 1,000 ML with POTASSIUM CL 40 MEQ IV SCH ×2 (13:12)
--- NOTE | 2019-06-23 13:15 | P.PN ---
Subjective Date of Service: 06/23/19 Primary Care Provider: Dr. Mason Chief Complaint: Weakness and dizziness Physical Examination - Vital Signs Temperature: 97.6 F Blood Pressure: 189/83 Pulse: 111 Respirations: 18 Pulse Ox (%): 96 - Studies Medications List Reviewed: Yes Assessment And Plan - Plan Subjective Pt admitted with sever electrolytes abnormalities and diarrhea , had franny Today Pt with polyuria and polydypsia will change fluid to D5 + KCL had 1 big BM yesterday will add cholyateramine DI?? can consider water depreviation test once sodium improves general: AAOX3, NAD , obese Neck; Supple, No elevated JVD hear: RRR, normal S1,2 no murmur or rub Chest: CTAB, no rlaes or wheezes Abdomen: Soft , Nt Extremities No edema or ulcer Assessment And Plan: FRANNY due to dehydration resolved Hypernatremia sodium was wnl on admission DI?? can consider water depreviation test once sodium improves Hypokalemia , hypomagnesemia due to diarrhea will replace will add daily KCl
--- NOTE | 2019-06-23 14:12 | P.PN ---
Subjective Date of Service: 06/23/19 Primary Care Provider: Dr. Mason Chief Complaint: Weakness and dizziness Patient's diarrhea has improved. Patient is complaining of bloating and cramps. She reports 2 bouts of diarrhea last night. Potassium level has improved. No fever. She appear lucid and not agitated. Physical Examination - Vital Signs Temperature: 97.6 F Blood Pressure: 189/83 Pulse: 111 Respirations: 18 Pulse Ox (%): 96 - Physical Exam General: Alert, In no apparent distress, Oriented x3 HEENT: Mucous membr. moist/pink Neck: Supple Respiratory: Clear to auscultation bilaterally, Normal air movement Cardiovascular: No edema, Normal S1 S2, Other (Tachycardic.) Gastrointestinal: No tenderness, No rebound, No guarding, Hyperactive, Distended Musculoskeletal: No swelling, No erythema Integumentary: No rashes Neurological: Normal strength at 5/5 x4 extr - Studies Medications List Reviewed: Yes Assessment And Plan - Current Problems (Diagnosis) (1) Hypovolemic shock Current Visit: Yes Status: Acute (2) Diarrhea Current Visit: Yes Status: Acute (3) Hypokalemia Current Visit: Yes Status: Acute (4) Hypophosphatemia Current Visit: Yes Status: Acute (5) Hypocalcemia Current Visit: Yes Status: Acute (6) Hypomagnesemia Current Visit: Yes Status: Acute (7) Acute renal failure Current Visit: Yes Status: Acute (8) Elevated troponin Current Visit: Yes Status: Acute (9) Anemia Current Visit: Yes Status: Acute (10) DM type 2 (diabetes mellitus, type 2) Current Visit: Yes Status: Chronic (11) COPD (chronic obstructive pulmonary disease) Current Visit: Yes Status: Chronic (12) Morbid obesity Current Visit: Yes Status: Chronic (13) Behavioral change Current Visit: Yes Status: Acute (14) Partial bowel obstruction Current Visit: Yes Status: Acute - Plan Continue supportive measures with IV hydration, correct electrolyte abnormalities. Nephrology is following. Discontinue immodium given bowel dilatation Keep NPO for now. Serial abdominal examination and KUB. GI and surgery to follow Continue antibiotics Insulin sliding scale for glucose management. Haldol IV p.r.n. for agitation and psychosis.
[2019-06-23] MEDS: DEXTROSE 10%-WATER 500 ML IV SCH (15:04)
[2019-06-23] MEDS: CHOLESTYRAMINE/ASP 4 GM/PKT PO SCH (17:00)
[2019-06-23 18:14] LABS: Magnesium 1.6 mg/dL (1.8-2.4); Potassium 3.2 mmol/L (3.5-5.1)
[2019-06-23] MEDS ORDERED: MAGNESIUM SULFATE 1 gm IVPB 1 GM/100 ML BAG IV ONE (19:00)
[2019-06-23] MEDS ORDERED: POTASSIUM CL 40 MEQ in NA CHLORIDE 0.9% 500 ML IV SCH (19:00)
[2019-06-23] MEDS: KCL 20 MEQ/100 mL IVPB 20 MEQ/100 ML BAG IV SCH (21:11)
[2019-06-24] MEDS: D5W 1,000 ML with POTASSIUM CL 40 MEQ IV SCH ×4 (01:45→04:50)
[2019-06-24] MEDS: KCL 20 MEQ/100 mL IVPB 20 MEQ/100 ML BAG IV SCH (02:06)
[2019-06-24 06:30] LABS: Magnesium 1.6 mg/dL (1.8-2.4); Potassium 3.3 mmol/L (3.5-5.1)
[2019-06-24] MEDS: INSULIN -REGULAR HUMAN 50 UNIT/0.5 ML ML SQ SCH ×4 (07:30→21:00)
[2019-06-24] MEDS: CHOLESTYRAMINE/ASP 4 GM/PKT PO SCH ×3 (08:00→16:26)
[2019-06-24] MEDS: DEXTROSE 10%-WATER 500 ML IV SCH ×2 (08:22→09:41)
[2019-06-24] MEDS: MAGNESIUM OXIDE 400 MG TAB PO SCH ×2 (09:00→20:24)
[2019-06-24] MEDS ORDERED: KCL 20 MEQ/100 mL IVPB 20 MEQ/100 ML BAG IV SCH (09:00)
[2019-06-24] MEDS ORDERED: MAGNESIUM SULFATE 1 gm IVPB 1 GM/100 ML BAG IV ONE (09:00)
[2019-06-24] MEDS ORDERED: POTASSIUM CL SA 10 MEQ TAB PO SCH (09:00)
[2019-06-24] MEDS: CALCIUM CARBONATE 500 MG TAB PO SCH ×4 (09:00→20:24)
[2019-06-24] MEDS: CALCITROL 0.25 MCG CAP PO SCH (09:38)
[2019-06-24] MEDS: CIPROFLOXACIN 400mg IV 400 MG/200 ML BAG IV SCH ×2 (09:38→20:23)
[2019-06-24] MEDS: METRONIDAZOLE 500mg IVPB 500 MG/100 ML BAG IV SCH ×2 (09:38→16:04)
[2019-06-24] MEDS: THIAMINE HCL 100 MG TABLET PO SCH (09:39)
[2019-06-24] MEDS: SIMETHICONE 80 MG TAB PO SCH ×3 (09:40→20:23)
[2019-06-24] MEDS: CLOPIDOGREL 75 MG TABLET PO SCH (09:40)
--- NOTE | 2019-06-24 11:51 | PN ---
Date of Progress Note: 06/24/2019 Subjective: Patient was admitted with colitis. Has psychogenic polydipsia. Physical Examination: Vital Signs: When I saw the patient, blood pressure 138/82, pulse of 110. Afebrile. Chest: Clear to auscultation. Heart: S1, S2 regular. Abdomen: Soft. Has mild tenderness. Extremities: Trace edema. Laboratory Data: WBC 6.7, H and H 8.8/27.2, platelets 225. Sodium 147, potassium 3.3, bicarb 27, BUN 4, creatinine 1, GFR of 63, calcium 8.4, magnesium 1.6. Current Medications: The patient on include: 1. Cipro. 2. Metronidazole. 3. Plavix. 4. Calcium carbonate. 5. Zofran. 6. Magnesium. 7. KCl. Assessment And Plan: 1. Polydipsia secondary to psychogenic polydipsia. We will discontinue fluid restriction and we will monitor. 2. Hypokalemia, hypomagnesemia, and hypophosphatemia. We will continue supplement. I am going to go ahead and do urine 24-hour for electrolyte to see if any salt wasting. 3. 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 We will aggressively supplement magnesium. No hypocalcemia. We will monitor. 4. Colitis as by primary. DAVIS Voice ID: [id number] Report ID: [id number] MTDD
[2019-06-24] MEDS ORDERED: MAGNESIUM 50% 3 GM in NA CHLORIDE 0.9% 100 ML IV ONE (12:00)
--- NOTE | 2019-06-24 12:14 | P.PN ---
Subjective Date of Service: 06/24/19 Primary Care Provider: Dr. Mason Chief Complaint: Weakness and dizziness Patient is agitated today. She is complaining of pain in the lower abdomen. She has been having mucoid diarrhea, no blood seen. Potassium level has improved. No fever. Physical Examination - Vital Signs Temperature: 98.3 F Blood Pressure: 138/82 Pulse: 110 Respirations: 18 Pulse Ox (%): 99 - Physical Exam General: In no apparent distress, Confused, Other (Agitated. She refused examination.) - Studies Medications List Reviewed: Yes Assessment And Plan - Current Problems (Diagnosis) (1) Hypovolemic shock Current Visit: Yes Status: Acute (2) Diarrhea Current Visit: Yes Status: Acute (3) Hypokalemia Current Visit: Yes Status: Acute (4) Hypophosphatemia Current Visit: Yes Status: Acute (5) Hypocalcemia Current Visit: Yes Status: Acute (6) Hypomagnesemia Current Visit: Yes Status: Acute (7) Acute renal failure Current Visit: Yes Status: Acute (8) Elevated troponin Current Visit: Yes Status: Acute (9) Anemia Current Visit: Yes Status: Acute (10) DM type 2 (diabetes mellitus, type 2) Current Visit: Yes Status: Chronic (11) COPD (chronic obstructive pulmonary disease) Current Visit: Yes Status: Chronic (12) Morbid obesity Current Visit: Yes Status: Chronic (13) Behavioral change Current Visit: Yes Status: Acute (14) Partial bowel obstruction Current Visit: Yes Status: Acute - Plan KUB reviewed. I see not much change from previous images. She has significantly dilated colon. Ice chips and sips for now. Limit fluid due to polyuria. Serial abdominal examination. KUB results reviewed with Dr. Simmons. He recommended small bowel series with colon transit. This is ordered. Continue antibiotics Insulin sliding scale for glucose management. Haldol IV p.r.n. for agitation and psychosis. Optimize electrolytes. Replete potassium.
[2019-06-24] MEDS: POTASSIUM CL 40 MEQ in NA CHLORIDE 0.9% 500 ML IV SCH ×3 (14:29→16:05)
[2019-06-24] MEDS ORDERED: Magnesium Sulfate 2gm IVPB 2 G/50 ML BAG IV ONE (15:00)
[2019-06-24] MEDS ORDERED: POTASSIUM CL 40 MEQ in NA CHLORIDE 0.9% 500 ML IV SCH (21:00)
[2019-06-25] MEDS: METRONIDAZOLE 500mg IVPB 500 MG/100 ML BAG IV SCH ×3 (00:14→17:00)
[2019-06-25] MEDS: DEXTROSE 10%-WATER 500 ML IV SCH (00:22)
[2019-06-25] MEDS: D5W 1,000 ML with POTASSIUM CL 40 MEQ IV SCH ×2 (03:35)
[2019-06-25] MEDS ORDERED: NA CHLORIDE 0.9% 250 ML IV ONE (05:37)
[2019-06-25 06:14] LABS: Absolute Lymphocytes (CBC) 1.7 K/uL (0.7-4.9); Basophils % 0.3 % (0-1.3); Hematocrit 26.6 % (36.0-45.0); Lymphocytes % 24.6 % (15.3-44.8); MPV 8.3 fL (7.6-11.3); RBC Red Blood Cell Count 2.72 M/uL (3.86-4.86)
[2019-06-25 06:27] LABS: Magnesium 1.9 mg/dL (1.8-2.4); Phosphorus 2.5 mg/dL (2.5-4.9)
[2019-06-25] MEDS: INSULIN -REGULAR HUMAN 50 UNIT/0.5 ML ML SQ SCH ×4 (07:30→21:00)
[2019-06-25] MEDS: KCL 20 MEQ/100 mL IVPB 20 MEQ/100 ML BAG IV SCH ×2 (08:00→12:28)
[2019-06-25] MEDS: D5W 1,000 ML with POTASSIUM CL 20 MEQ IV SCH ×4 (08:00→19:47)
[2019-06-25] MEDS ORDERED: D5W 1,000 ML with POTASSIUM CL 40 MEQ IV SCH ×2 (08:00)
[2019-06-25] MEDS: CALCIUM CARBONATE 500 MG TAB PO SCH ×3 (09:00→22:15)
[2019-06-25] MEDS: CIPROFLOXACIN 400mg IV 400 MG/200 ML BAG IV SCH ×2 (09:00→22:15)
--- NOTE | 2019-06-25 09:46 | RAD REPORT ---
EXAM DESCRIPTION: CT - Abdomen Pelvis W Contrast - 06/25/2019 9:26 am CLINICAL HISTORY: Abdominal pain. COMPARISON: June 16, 2019 CT chest and June 22 abdominal plain TECHNIQUE: Computed axial tomography of the abdomen and pelvis was obtained. 100 cc Isovue-300 is ad ministered intravenously. However there was extravasation of all of the contrast into the right axill a. Oral contrast was given. All CT scans are performed using dose optimization technique as appropriate and may include automated exposure control or mA/KV adjustment according to patient size. FINDINGS: Due to the extravasation of contrast the evaluation of vessels and solid organs is limited. Fatty liver Spleen, pancreas, adrenals and kidneys appear grossly normal. . There is no evidence of diverticulitis. The colonic caliber has diminished since the prior examination. The bowel caliber is upper limits nor mal to borderline enlarged. There is no evidence of an obstruction. No free air. IMPRESSION: The colonic caliber has diminished and is now upper limits normal to borderline enlarged . Extravasation of the 100 cc of contrast into the right axilla. Cold compress placed. Technologist not ified the patient's nurse to elevate the arm.
[2019-06-25] MEDS: POTASSIUM CL SA 10 MEQ TAB PO SCH (12:28)
--- NOTE | 2019-06-25 12:28 | P.PN ---
Subjective Date of Service: 06/25/19 Primary Care Provider: Dr. Mason Chief Complaint: Weakness and dizziness Patient is more calm today. She wants to eat. She is hypokalemic today. She still has polyuria. She now has hypernatremia. Physical Examination - Vital Signs Temperature: 98.2 F Blood Pressure: 150/62 Pulse: 105 Respirations: 16 Pulse Ox (%): 97 - Physical Exam General: Alert, In no apparent distress, Oriented x3 HEENT: Mucous membr. moist/pink Neck: Supple, JVD not distended Respiratory: Clear to auscultation bilaterally, Normal air movement Cardiovascular: No edema, Regular rate/rhythm, Normal S1 S2 Gastrointestinal: Normal bowel sounds, Soft and benign, No tenderness, Distended (Distension has improved.) Musculoskeletal: No swelling, No erythema Integumentary: No rashes, Other (Subcutaneous tissue or left upper anterior chest/the left shoulder appear swollen, likely from IV infiltrate.) - Studies Medications List Reviewed: Yes Assessment And Plan - Current Problems (Diagnosis) (1) Hypovolemic shock Current Visit: Yes Status: Acute (2) Diarrhea Current Visit: Yes Status: Acute (3) Hypokalemia Current Visit: Yes Status: Acute (4) Hypophosphatemia Current Visit: Yes Status: Acute (5) Hypocalcemia Current Visit: Yes Status: Acute (6) Hypomagnesemia Current Visit: Yes Status: Acute (7) Acute renal failure Current Visit: Yes Status: Acute (8) Elevated troponin Current Visit: Yes Status: Acute (9) Anemia Current Visit: Yes Status: Acute (10) DM type 2 (diabetes mellitus, type 2) Current Visit: Yes Status: Chronic (11) COPD (chronic obstructive pulmonary disease) Current Visit: Yes Status: Chronic (12) Morbid obesity Current Visit: Yes Status: Chronic (13) Behavioral change Current Visit: Yes Status: Acute (14) Partial bowel obstruction Current Visit: Yes Status: Acute (15) Hypernatremia Current Visit: Yes Status: Acute - Plan CT abdomen and pelvis result reviewed. Is report no bowel obstruction, and improvement in colonic dilatation. Noted she has hypernatremia. ? Diabetes insipidus. Low urine osmolality noted. Hypokalemia could be contributing. Replace magnesium and potassium. Start clear liquid diet and advanced to soft as tolerated.. Continue antibiotics Insulin sliding scale for glucose management. Haldol IV p.r.n. for agitation and psychosis. Nephrology is following for electrolyte management.
[2019-06-25] MEDS: CALCITROL 0.25 MCG CAP PO SCH (12:31)
[2019-06-25] MEDS: METOPROLOL TAR 25 MG TAB PO SCH ×2 (12:31→22:13)
[2019-06-25] MEDS: CLOPIDOGREL 75 MG TABLET PO SCH (12:31)
[2019-06-25] MEDS: SIMETHICONE 80 MG TAB PO SCH ×3 (12:31→22:13)
[2019-06-25] MEDS: THIAMINE HCL 100 MG TABLET PO SCH (12:32)
[2019-06-25] MEDS: MAGNESIUM OXIDE 400 MG TAB PO SCH ×2 (12:32→21:00)
[2019-06-25] MEDS: CHOLESTYRAMINE/ASP 4 GM/PKT PO SCH ×2 (12:32→17:00)
[2019-06-25] MEDS ORDERED: Magnesium Sulfate 2gm IVPB 2 G/50 ML BAG IV ONE (13:00)
[2019-06-25] MEDS: POTASSIUM CL 40 MEQ in NA CHLORIDE 0.9% 500 ML IV SCH ×2 (13:00→17:00)
[2019-06-25 13:51] LABS: Urine Protein/Creatinine Ratio 1.27 ratio (<0.15)
--- NOTE | 2019-06-25 14:44 | PN ---
Date of Progress Note: 06/25/2019 Subjective: Patient doing well, start liquid diet, tolerated. No abdominal pain. Physical Examination: Vital Signs: Blood pressure 150/62, pulse of 100, afebrile. Patient had urine output of 6700. Chest: Clear to auscultation. Heart: S1, S2. Regular. Abdomen: No tenderness. Bowel sounds appreciated. Extremities: Plus edema. Laboratory Data: WBC 7, H and H 8.6/26.6, platelets 209. Sodium 152, potassium 3, bicarb 29, BUN 4, creatinine 0.9, calcium 8.3, phosphorus 2.5, magnesium 1.9. Current Medications: The patient on include Cipro, metronidazole, Plavix. Metoprolol 12.5 b.i.d., simethicone. Assessment And Plan: 1. Acute kidney injury secondary to prerenal, recovered, resolved. 2. hypo Na secondary to psychogenic polydipsia. Patient was on limited p.o. intake, currently start drinking. We will follow up. We will send for urine electrolyte to evaluate if we need to start the patient on DDAVP/hydrochlorothiazide. 3. Hypokalemia, hypomagnesemia, hypophosphatemia, we will supplement. 4. Secondary hyperparathyroidism secondary possible to hypomagnesemia. We will arrange for PTH tomorrow given the magnesium being almost corrected for the last few days, and we will follow up. 5. Small bowel obstruction, stable. Follow up with primary and Surgery. DAVIS Voice ID: [id number] Report ID: [id number] ROMEO
[2019-06-26] MEDS: METRONIDAZOLE 500mg IVPB 500 MG/100 ML BAG IV SCH ×3 (00:25→16:57)
[2019-06-26 04:09] LABS: Potassium 2.8 mmol/L (3.5-5.1)
[2019-06-26] MEDS: D5W 1,000 ML with POTASSIUM CL 20 MEQ IV SCH ×2 (04:12)
[2019-06-26] MEDS ORDERED: POTASSIUM CL SA 10 MEQ TAB PO ONE (04:39)
[2019-06-26] MEDS: KCL 20 MEQ/100 mL IVPB 20 MEQ/100 ML BAG IV SCH ×2 (05:00→09:26)
[2019-06-26] MEDS: INSULIN -REGULAR HUMAN 50 UNIT/0.5 ML ML SQ SCH ×4 (07:30→21:00)
[2019-06-26] MEDS: METOPROLOL TAR 25 MG TAB PO SCH ×2 (09:33→21:00)
[2019-06-26] MEDS: CHOLESTYRAMINE/ASP 4 GM/PKT PO SCH ×2 (09:35→16:52)
[2019-06-26] MEDS: CALCIUM CARBONATE 500 MG TAB PO SCH ×3 (09:36→21:00)
[2019-06-26] MEDS: CALCITROL 0.25 MCG CAP PO SCH (09:37)
[2019-06-26] MEDS: THIAMINE HCL 100 MG TABLET PO SCH (09:37)
[2019-06-26] MEDS: SIMETHICONE 80 MG TAB PO SCH ×3 (09:37→21:00)
[2019-06-26] MEDS: CLOPIDOGREL 75 MG TABLET PO SCH (09:38)
[2019-06-26] MEDS: MAGNESIUM OXIDE 400 MG TAB PO SCH ×2 (09:39→21:00)
[2019-06-26] MEDS: POTASSIUM CL SA 10 MEQ TAB PO SCH (09:39)
[2019-06-26] MEDS: CIPROFLOXACIN 400mg IV 400 MG/200 ML BAG IV SCH ×2 (09:45→21:00)
--- NOTE | 2019-06-26 13:36 | P.PN ---
Subjective Date of Service: 06/26/19 Primary Care Provider: Dr. Mason Chief Complaint: Weakness and dizziness Subjective: Improving, Doing well Physical Examination - Vital Signs Temperature: 97.5 F Blood Pressure: 159/73 Pulse: 102 Respirations: 21 Pulse Ox (%): 99 - Physical Exam General: Alert, In no apparent distress, Oriented x3, Cooperative HEENT: Atraumatic Neck: Supple Respiratory: Clear to auscultation bilaterally, Normal air movement Cardiovascular: Normal pulses, Regular rate/rhythm Gastrointestinal: Normal bowel sounds, Soft and benign, Non-distended, No rebound, No guarding Neurological: Normal speech, Normal strength at 5/5 x4 extr, Normal tone, Normal affect - Studies Medications List Reviewed: Yes Assessment & Plan Discharge Plan: Home Plan to discharge in: 24 Hours Physician Review Additional Text: Impression: Acute on Chronic diarrhea with severe hypomagnesia, hypokalemia, and hypocalcemia complicated with hypotension related to dehydration Acute on chronic renal failure stage 4 Partial small-bowel obstruction resolved Anemia chronic disease Elevated troponin with history of CAD/AICD likely ischemic demand Anemia of chronic disease Diabetes mellitus type 2 Hypertension COPD Morbid obesity Plan: Acute on Chronic diarrhea with severe hypomagnesia, hypokalemia, and hypocalcemia complicated with hypotension related to dehydration: Will need to discuss with nephrology. Replace electrolytes. Possible discharge if okay with nephrology. Anticipate discharge in the next 24 hr. Acute on chronic renal failure stage 4: This has improved with IV fluid hydration and vasopressor therapy. Nephrology continues to adjust fluids and electrolytes. Continue with the recommendation. Partial small-bowel obstruction resolved: Patient tolerating diet. Spoke with surgery. No intervention required. Continue antibiotic therapy. Anemia chronic disease: Continue monitor hemoglobin closely. If hemoglobin below 7 patient will likely require medication. Elevated troponin with history of CAD/AICD likely ischemic demand: Overall stable. Will monitor closely. Case discussed with cardiology. No intervention needed at this time. Continue DVT prophylaxis. Diabetes mellitus type 2: Metformin has been discontinued. Continue with Accu- Cheks and sliding scale. Hypertension: Continue to hold her blood pressure medications. Continue as above. COPD: Maintain oxygen greater than 93%. Morbid obesity: Lifestyle modification education will be addressed. Time Spent Managing Pts Care (In Minutes): 55
--- NOTE | 2019-06-26 16:12 | PN ---
Date of Progress Note: 06/26/2019 Reason For Consultation: Chronic abdominal pain, new abdominal pain, distended bowel. Subjective: Patient is doing better. It is hard for her to eat. She stated that is on and off for many months. She has not noticed anything different this time. Objective: Chest: Bilateral sounds. Abdomen: Soft and depressible. Softly distended. Mild tenderness. No guarding or rebound. Extremities: Good capillary refill. Imaging Data: CAT scan once again was discussed with the patient and the findings in that area. Laboratory Data: Blood Work: WBC count of 7.0, hemoglobin of 8.6. Potassium is 2.8 and they had be en working on that for the last week. Assessment: A 69-year-old patient, chronic abdominal pain. No peritonitis at this moment. She unde rstands the surgical options and this bowel will get distended or even perforation. We may include e mergent laparotomy, possible resection, possible ostomy. She understands the national emergency righ t now and the coronavirus. She is afraid of being on a ventilator at this moment, so she claims she feels better and at that moment she noticed that basically surgical intervention will be the best for her, then she is going to give the consent, but not at this moment. SILVANO/NATE Voice ID: [id number] Report ID: [id number]
[2019-06-26] MEDS ORDERED: LORazepam 2 MG/ML VIAL IV PRN (19:19)
[2019-06-26] MEDS: LORAZEPAM 0.5 MG TABLET PO SCH (21:00)
[2019-06-26] MEDS ORDERED: LORazepam 2 MG/ML VIAL IV SCH (21:00)
[2019-06-26] MEDS ORDERED: LORAZEPAM 0.5 MG TABLET PO SCH (21:00)
--- NOTE | 2019-06-26 21:33 | PN ---
Date of Progress Note: 06/26/2019 Chief Complaint: Acute kidney injury, electrolytes abnormalities. Patient presented to the hospital because of abdominal pain and diarrhea. She was found to have prerenal azotemia, acute tubular necrosis, and renal function has improved in response to IV fluids. Patient has a history of hyponatremia. Previously, she was taken off hydrochlorothiazide. Recently, patient was found to have hypernatremia and sodium level was up to 152, today is improving to 145. Patient has adequate p.o. fluid intake. Review of Systems: Denies fever or chills. Physical Examination: Lungs: Clear to auscultation bilaterally. Heart: S1, S2. Abdomen: Soft, benign. Extremities: Slight edema. Laboratory Data: Sodium 145, potassium 2.8, chloride 114, CO2 of 26, BUN 2.0, creatinine 0.9, glucose is 62. Impression And Plan: Hypokalemia. Hypernatremia, sodium level is improving. Acute kidney injury is resolving in response to IV fluids. Hypokalemia, hypomagnesemia, hypophosphatemia. Plan is to monitor and continue supplementation. Secondary hyperparathyroidism with complicated case of hypomagnesemia, which may be contributory to elevated intact PTH. Continue to adjust treatment with electrolytes. Small bowel obstruction, per primary team and surgical team. I spent total 36 min including 25 min to coordinate care plan. KLAUDIA/NATE Voice ID: [id number] Report ID: [id number] ROMEO
[2019-06-27] MEDS: METRONIDAZOLE 500mg IVPB 500 MG/100 ML BAG IV SCH ×2 (00:55→07:53)
[2019-06-27 07:21] VITALS: BMI 57.4
[2019-06-27] MEDS: INSULIN -REGULAR HUMAN 50 UNIT/0.5 ML ML SQ SCH ×2 (07:30→11:30)
[2019-06-27] MEDS ORDERED: ACETAMINOPHEN 500 MG TAB PO PRN (07:40)
[2019-06-27] MEDS: CALCIUM CARBONATE 500 MG TAB PO SCH ×2 (07:54→13:00)
[2019-06-27] MEDS: SIMETHICONE 80 MG TAB PO SCH ×2 (07:54→13:00)
[2019-06-27] MEDS: CALCITROL 0.25 MCG CAP PO SCH (07:54)
[2019-06-27] MEDS: CIPROFLOXACIN 400mg IV 400 MG/200 ML BAG IV SCH (07:54)
[2019-06-27] MEDS: METOPROLOL TAR 25 MG TAB PO SCH (07:55)
[2019-06-27] MEDS: MAGNESIUM OXIDE 400 MG TAB PO SCH (07:55)
[2019-06-27] MEDS: THIAMINE HCL 100 MG TABLET PO SCH (07:55)
[2019-06-27] MEDS: CLOPIDOGREL 75 MG TABLET PO SCH (07:55)
[2019-06-27] MEDS: LORAZEPAM 0.5 MG TABLET PO SCH ×2 (07:55→13:00)
[2019-06-27] MEDS: POTASSIUM CL SA 10 MEQ TAB PO SCH (07:56)
[2019-06-27 09:21] VITALS: O2SAT 99
[2019-06-27] MEDS: CHOLESTYRAMINE/ASP 4 GM/PKT PO SCH (10:00)
--- NOTE | 2019-06-27 11:39 | P.DS ---
Admission Date: 06/16/19 Discharge Date: 06/27/19 Primary Care Provider: Dr. Mason Disposition: TRANSFER TO SNF Discharge Condition: GOOD Reason for Admission: Weakness and dizziness Consultations: Nephrology-Dr. Lopez ID-Dr. Chawla GI-Dr. Jean Baptiste Surgery-Dr. Ochoa Cardiology-Dr. Levy Procedures: CT scan: FINDINGS: No suspicious findings in the lung bases. The liver, spleen and pancreas show no suspicious findings on non-contrast imaging. Cholecystectomy clips are present. No biliary tree dilatation. No hydronephrosis or suspicious renal mass. No significant adrenal finding. Isodense renal masses and pyelonephritis cannot be excluded in the absence of IV contrast. The urinary bladder is without significant finding. No uterine abnormality seen. Cystic area in the lower uterus is probably a large nabothian cysts 2 cm in size. This is not fully assessed. No similar finding seen in 2011. No ovarian abnormality suspected. No gastric dilatation or wall thickening. No dilated small bowel loops. No appendicitis finding seen. Cecum and ascending colon are normal in size and show no focal abnormalities. From the hepatic flexure to the distal rectum there is a dilatation pattern of the colon. No wall thickening, mass or edema. This does not appear to be secondary to an obstruction. This does not meet the diagnostic criteria for megacolon but may be secondary to chronic laxative usage. No free air, free fluid or inflammatory stranding. No hernia, mass or bulky lymphadenopathy. No suspicious bony findings. IMPRESSION: Dilated colon pattern from the hepatic flexure to the distal rectum. No distal rectum or anal obstructing mass identifiable. Follow up CT scan: FINDINGS: No suspicious findings in the lung bases. The liver, spleen and pancreas show no suspicious findings on non-contrast imaging. Cholecystectomy clips are present. No biliary tree dilatation. No hydronephrosis or suspicious renal mass. No significant adrenal finding. Isodense renal masses and pyelonephritis cannot be excluded in the absence of IV contrast. The urinary bladder is without significant finding. No uterine abnormality seen. Cystic area in the lower uterus is probably a large nabothian cysts 2 cm in size. This is not fully assessed. No similar finding seen in 2011. No ovarian abnormality suspected. No gastric dilatation or wall thickening. No dilated small bowel loops. No appendicitis finding seen. Cecum and ascending colon are normal in size and show no focal abnormalities. From the hepatic flexure to the distal rectum there is a dilatation pattern of the colon. No wall thickening, mass or edema. This does not appear to be secondary to an obstruction. This does not meet the diagnostic criteria for megacolon but may be secondary to chronic laxative usage. No free air, free fluid or inflammatory stranding. No hernia, mass or bulky lymphadenopathy. No suspicious bony findings. IMPRESSION: Dilated colon pattern from the hepatic flexure to the distal rectum. No distal rectum or anal obstructing mass identifiable. ECHO: 53% LEFT VENTRICULAR WALL MOTION: NORMAL. DOPPLER/COLOR FLOW: NORMAL. COMMENTS: TECHNICALLY DIFFICULT STUDY. NORMAL LEFT VENTRICULAR SIZE AND FUNCTION. NO WALL MOTION ABNORMALITY. 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 NO EFFUSION Medical Problem List: Acute on Chronic diarrhea with severe hypomagnesia, hypokalemia, and hypocalcemia complicated with hypotension related to dehydration Acute on chronic renal failure stage 4 Suspected colitis with dilated colon Anemia chronic disease Elevated troponin with history of CAD/AICD likely ischemic demand Anemia of chronic disease Diabetes mellitus type 2 Hypertension COPD Morbid obesity Chronic pain with neuropathy Depression with anxiety Brief History of Present Illness: 69-year-old female with history of hypertension, diabetes, hyperlipidemia, and COPD. Patient presented with body aches, weakness and nausea and vomiting. Patient has had loose bowel movements per reports chronic diarrhea. Patient found to have significant abnormalities in her electrolytes. Significant hypokalemia noted with hypomagnesium and hypocalcemia. Patient was admitted to ICU for further evaluation and treatment. Hospital Course: Patient presented with acute on chronic diarrhea with severe hypomagnesium, hypokalemia and hypocalcemia. This was complicated with hypotension likely from volume depletion. Patient also presented with acute on chronic renal failure stage 4. Patient was admitted to the ICU for close monitoring. During the course of her stay she saw all multiple specialists including Nephrology, Surgery, Infectious Disease, Cardiology, and GI. There was some suspicion of enteritis versus partial small-bowel obstruction. During the course of her stay improvement in electrolytes and renal function improved. Renal function now back to baseline. Because of her acute on chronic diarrhea patient was evaluated by GI and surgery. No surgery intervention was required. Patient was placed on Cipro and Flagyl for suspected enteritis. No this small-bowel obstruction identified. Patient has dilated bowel. This appears chronic. GI and surgery both recommend colonoscopy in the future. C diff colitis ruled out. Patient may continue with Imodium as needed for diarrhea. Patient will continue with current diet at this time. Patient will continue with Cipro 500 mg twice daily and Flagyl 500 mg 3 times a day for 5 more days. Patient will also continue with Questran twice daily and simethicone 80 mg 3 times a day. Patient may continue with Imodium as needed for diarrhea. Renal function now back to baseline. Electrolytes significantly improved. At discharge she will continue with Calcitrol 0.5 mcg daily and Oscal 1000 mg 3 times a day. Patient will also continue with magnesium 400 mg twice daily. Patient will also continue with potassium supplementation 80 mEq daily. Recommend to recheck lab-BMP, calcium and magnesium in 1 week to monitor progress. Recommendation to follow up with GI for colonoscopy in the future. Recommend follow up with nephrology closely to monitor her electrolyte abnormalities and chronic renal disease. During the course of her stay her troponin was elevated. Patient with history of CAD. This is likely from ischemic demand. Cardiology was consulted. No intervention required. Echocardiogram unremarkable. Patient may continue with Plavix 75 mg daily. Patient with diabetes mellitus type 2. Metformin was initially discontinued and held due to acute renal failure. This has significantly improved. At discharge she will continue with metformin 1000 mg twice daily and Victoza At discharge she will continue with. Recommend to maintain blood sugars less 140 fasting and less than 200 after meals. Further adjustment can be done by her PCP. Patient with hypertension. Medications have been adjusted during the course of her stay. Carvedilol has been discontinued. At discharge patient will continue with amiloride 5 mg daily and valsartan 40 mg 1 pill daily. Recommend to monitor blood pressure closely at least once daily. May need to hold blood pressure medication if systolic less than 110. Recommend to maintain blood pressures less 150/80. Further adjustment can be done by her PCP. Patient with COPD. At discharge she will continue with her current medications at their 1 puff twice daily and Pro air 2 puffs 3 times a day as needed for shortness of breath. Patient with chronic pain and neuropathy. At discharge she will continue with gabapentin 300 mg 3 times a day and tramadol as needed for pain. Recommend to discontinue muscle relaxer Orphenadrine. Patient with depression anxiety. At discharge she may continue with Effexor 150 mg daily. Prior to discharge other medications were reviewed and adjusted. At discharge Elavil, doxazosin, muscle relaxer, and trazodone have been discontinued. Vital Signs/Physical Exam: Temp Pulse Resp BP Pulse Ox 98.1 F 106 H 18 174/60 H 99 06/27/19 07:50 06/27/19 07:55 06/27/19 07:50 06/27/19 07:55 06/27/19 07:50 General: Alert, In no apparent distress, Oriented x3, Cooperative HEENT: Atraumatic, Normocephalic Neck: Supple Respiratory: Clear to auscultation bilaterally, Normal air movement Cardiovascular: Normal pulses, Regular rate/rhythm Gastrointestinal: Normal bowel sounds, Soft and benign, Non-distended, No tenderness, No masses, No rebound, No guarding Musculoskeletal: No erythema, No tenderness, No warmth Integumentary: No tenderness/swelling, No erythema, No warmth, No cyanosis Neurological: Normal speech, Normal strength at 5/5 x4 extr, Normal tone, Normal affect Laboratory Data at Discharge: WBC 7.0 K/uL (4.3-10.9) 06/25/19 05:43 Hgb 8.6 g/dL (12.0-15.0) L 06/25/19 05:43 Hct 26.6 % (36.0-45.0) L 06/25/19 05:43 Plt Count 209 K/uL (152-406) 06/25/19 05:43 PT 16.5 SECONDS (9.5-12.5) H 06/16/19 16:20 INR 1.41 06/16/19 16:20 Sodium 145 mmol/L (136-145) 06/27/19 03:30 Potassium 3.0 mmol/L (3.5-5.1) L 06/27/19 03:30 BUN 4 mg/dL (7-18) L 06/27/19 03:30 Creatinine 0.82 mg/dL (0.55-1.3) 06/27/19 03:30 Glucose 92 mg/dL (74-106) 06/27/19 03:30 Phosphorus 2.5 mg/dL (2.5-4.9) 06/25/19 05:43 Magnesium 1.9 mg/dL (1.8-2.4) 06/25/19 05:43 Total Bilirubin 0.6 mg/dL (0.2-1.0) 06/18/19 05:02 AST 33 U/L (15-37) 06/18/19 05:02 ALT 13 U/L (12-78) 06/18/19 05:02 Alkaline Phosphatase 43 U/L (45-117) L 06/18/19 05:02 Troponin I 0.20 ng/mL (0.0-0.045) H 06/17/19 05:50 Home Medications: Albuterol Sulfate [Proair Hfa] 90 mcg IH Q4HR 02/04/13 Metformin HCl [Glucophage*] 1,000 mg PO BIDWM 02/04/13 Potassium Chloride [Klor-Con] 20 meq PO DAILY 02/04/13 Venlafaxine HCl [Effexor XR] 150 mg PO DAILY 02/04/13 Liraglutide [Victoza 2-Walker] 1.8 mg SQ DAILY 01/30/14 Fluticasone/Salmeterol [Advair 500/50 Diskus*] 1 puff IH BID #1 disk 02/02/14 Gabapentin 300 mg PO TID 06/20/19 traMADol HCL [Ultram*] 50 mg PO BIDP PRN 06/20/19 Amiloride HCl 5 mg PO DAILY #30 tablet 06/27/19 Calcitrol [Rocaltrol*] 0.5 mcg PO DAILY #30 cap 06/27/19 Calcium Carbonate [Oscal*] 1,000 mg PO TID #90 tab 06/27/19 Cholestyramine/Asp [Questran Light*] 4 gm PO BIDWM #60 packet 06/27/19 Ciprofloxacin HCl [Cipro 500 MG Tablet] 500 mg PO BID #10 tab 06/27/19 Magnesium Oxide [Mag 0X*] 400 mg PO BID #60 tab 06/27/19 Potassium Chloride [Klor-Con M20] 80 meq PO DAILY #120 tab.er.prt 06/27/19 Simethicone [Mylicon*] 80 mg PO TID #90 tab 06/27/19 Thiamine HCl [Vitamin B-1*] 100 mg PO DAILY #90 tablet 06/27/19 Valsartan 40 mg PO DAILY #30 tablet 06/27/19 metroNIDAZOLE [Flagyl] 500 mg PO Q8H #15 tablet 06/27/19 New Medications: Amiloride HCl 5 mg PO DAILY #30 tablet Calcitrol [Rocaltrol*] 0.5 mcg PO DAILY #30 cap Calcium Carbonate [Oscal*] 1,000 mg PO TID #90 tab Cholestyramine/Asp [Questran Light*] 4 gm PO BIDWM #60 packet Ciprofloxacin HCl [Cipro 500 MG Tablet] 500 mg PO BID #10 tab Magnesium Oxide [Mag 0X*] 400 mg PO BID #60 tab metroNIDAZOLE [Flagyl] 500 mg PO Q8H #15 tablet Potassium Chloride [Klor-Con M20] 80 meq PO DAILY #120 tab.er.prt Simethicone [Mylicon*] 80 mg PO TID #90 tab Thiamine HCl [Vitamin B-1*] 100 mg PO DAILY #90 tablet Valsartan 40 mg PO DAILY #30 tablet Patient Discharge Instructions: 1. Recommend follow up with PCP in 1 week to follow up this hospitalization. 2. Patient presented with acute on chronic diarrhea with severe hypomagnesium, hypokalemia and hypocalcemia. This was complicated with hypotension likely from volume depletion. Patient also presented with acute on chronic renal failure stage 4. Patient was admitted to the ICU for close monitoring. During the course of her stay she saw all multiple specialists including Nephrology, Surgery, Infectious Disease, Cardiology, and GI. There was some suspicion of enteritis versus partial small- bowel obstruction. During the course of her stay improvement in electrolytes and renal function improved. Renal function now back to baseline. Because of her acute on chronic diarrhea patient was evaluated by GI and surgery. No surgery intervention was required. Patient was placed on Cipro and Flagyl for suspected enteritis. No this small-bowel obstruction identified. Patient has dilated bowel. This appears chronic. GI and surgery both recommend colonoscopy in the future. C diff colitis ruled out. Patient may continue with Imodium as needed for diarrhea. Patient will continue with current diet at this time. Patient will continue with Cipro 500 mg twice daily and Flagyl 500 mg 3 times a day for 5 more days. Patient will also continue with Questran twice daily and simethicone 80 mg 3 times a day. Patient may continue with Imodium as needed for diarrhea. Renal function now back to baseline. Electrolytes significantly improved. At discharge she will continue with Calcitrol 0.5 mcg daily and Oscal 1000 mg 3 times a day. Patient will also continue with magnesium 400 mg twice daily. Patient will also continue with potassium supplementation 80 mEq daily. Recommend to recheck lab-BMP, calcium and magnesium in 1 week to monitor progress. Recommendation to follow up with GI for colonoscopy in the future. Recommend follow up with nephrology closely to monitor her electrolyte abnormalities and chronic renal disease. 3. During the course of her stay her troponin was elevated. Patient with history of CAD. This is likely from ischemic demand. Cardiology was consulted. No intervention required. Echocardiogram unremarkable. Patient may continue with Plavix 75 mg daily. 4. Patient with diabetes mellitus type 2. Metformin was initially discontinued and held due to acute renal failure. This has significantly improved. At discharge she will continue with metformin 1000 mg twice daily and Victoza At discharge she will continue with. Recommend to maintain blood sugars less 140 fasting and less than 200 after meals. Further adjustment can be done by her PCP. 5. Patient with hypertension. Medications have been adjusted during the course of her stay. Carvedilol has been discontinued. At discharge patient will continue with amiloride 5 mg daily and valsartan 40 mg 1 pill daily. Recommend to monitor blood pressure closely at least once daily. May need to hold blood pressure medication if systolic less than 110. Recommend to maintain blood pressures less 150/80. Further adjustment can be done by her PCP. 6. Patient with COPD. At discharge she will continue with her current medications at their 1 puff twice daily and Pro air 2 puffs 3 times a day as needed for shortness of breath. 7. Patient with chronic pain and neuropathy. At discharge she will continue with gabapentin 300 mg 3 times a day and tramadol as needed for pain. Recommend to discontinue muscle relaxer Orphenadrine. 8. Patient with depression anxiety. At discharge she may continue with Effexor 150 mg daily. 9. Prior to discharge other medications were reviewed and adjusted. At discharge Elavil, doxazosin, muscle relaxer, and trazodone have been discontinued. Diet: ADA Activity: Fall precautions Time spent managing pt's care (in minutes): 55
[2019-06-27] MEDS ORDERED: POTASSIUM CL SA 10 MEQ TAB PO ONE (11:41)
[2019-06-27 11:56] VITALS: BP 86/61; TEMP 97.6
[2019-06-27] MEDS ORDERED: POTASSIUM CL 40 MEQ in NA CHLORIDE 0.9% 500 ML IV SCH (12:00)
--- NOTE | 2019-06-27 13:13 | PN ---
Date of Progress Note: 06/27/2019 Subjective: Patient was admitted with acute kidney injury secondary to prerenal. Patient had psycho genic polydipsia. Physical Examination: Vital Signs: Blood pressure 127/75, pulse of 88. Chest: Clear to auscultation. Heart: S1, S2 regular. Abdomen: Soft, nontender. Extremity: Trace edema. Patient had urine output of 5200. Assessment And Plan: 1.Acute kidney injury secondary to prerenal, recovered, resolved. 2.Psychogenic polydipsia causing hypernatremia, currently corrected as the patient had good access t o free water. 3.Hypokalemia, hypomagnesemia. We will continue aggressive supplement. I am going to start the pat ient on low-dose amiloride. Patient is going to need to follow up closely in the office for her elec trolytes. 4.Secondary hyperparathyroidism secondary to hypomagnesemia. Continue calcitriol. We will follow u p. 5.Small bowel obstruction, stable. Follow up with the Primary, recovered, resolved. DAVIS Voice ID: [id number] Report ID: [id number]
--- NOTE | 2019-06-27 14:27 | PN ---
Subjective: The patient lying in bed. Denies any headache, nausea, vomiting, chest pain, abdominal pain, constipation. Having loose bowel movements. No fevers. Objective: Vital Signs: Reviewed. Lungs: Basal crackles. Heart: S1, S2. Regular. Abdomen: Soft, nontender. Bowel sounds hyperactive. Extremities: No edema. Laboratory Data: Shows WBC 7, hemoglobin 8.6, platelets 209. Chemistry shows sodium 145, potassium 3, chloride 114, bicarb 26, BUN 4, creatinine 0.8, glucose 92. Micro data, fecal leukocyte 1 to 9. Currently, patient is on Flagyl and ciprofloxacin. Assessment And Plan: Diarrhea subsiding. No leukocytosis. Continue supportive care and Flagyl. We will follow the patient closely. Monitor for signs of infection. NF/MODL Voice ID: [id number] Report ID: [id number]
[2019-06-28] MEDS ORDERED: AMILORIDE HCL 5 MG TABLET PO SCH (09:00)
--- NOTE | 2019-06-28 18:41 | PN ---
Date of Progress Note: 06/27/2019 Subjective: Ms. Harp is a 69-year-old patient with multiple medical problems, also abdominal pain, chronic distention of the bowel. Right now, she feels better. Two days ago, she was nauseous and s he was going to vomit, but today she feels fine. She is starting to tolerate the diet. Review of Systems: Ten points otherwise unremarkable. Objective: Chest: Clear. Abdomen: Soft and depressible. No guarding or rebound. Softly distended, but no peritonitis. Extremities: Good capillary refill. Plan: She is going to continue diet, obviously ambulation when it is possible and when it is safe. We will keep an eye on her and give more recommendations as the case develops. SILVANO/NATE Voice ID: [id number] Report ID: [id number]
== END 2019-06-27 15:25 | disposition home or self-care (01) | DRG 640 ==
LOC: ER 15:05 → ERHOLD 20:46 → 3RD-ICU 06-17 02:09 → 4TH 06-22 14:35
PROVIDERS: ADMIT Internal Medicine; ATTEND Family Medicine
PROC: 05HY33Z Insertion of Infusion Device into Upper Vein, Percutaneous Approach (ICD-10-PCS; principal; 2019-06-16)
DX: E87.6 Hypokalemia (principal); R57.1 Hypovolemic shock; G93.41 Metabolic encephalopathy; N17.0 Acute kidney failure with tubular necrosis; I13.0 Hypertensive heart and chronic kidney disease with heart failure and stage 1 through stage 4 chronic kidney disease, or unspecified chronic kidney disease; I50.32 Chronic diastolic (congestive) heart failure; I24.8 Other forms of acute ischemic heart disease; N25.81 Secondary hyperparathyroidism of renal origin; Z68.43 Body mass index [BMI] 50.0-59.9, adult; K56.600 Partial intestinal obstruction, unspecified as to cause; K59.39 Other megacolon; N18.4 Chronic kidney disease, stage 4 (severe); E87.0 Hyperosmolality and hypernatremia; E87.3 Alkalosis; Z88.0 Allergy status to penicillin; Z88.8 Allergy status to other drugs, medicaments and biological substances; Z79.84 Long term (current) use of oral hypoglycemic drugs; Z79.899 Other long term (current) drug therapy; J44.9 Chronic obstructive pulmonary disease, unspecified; Z88.5 Allergy status to narcotic agent; Z90.49 Acquired absence of other specified parts of digestive tract; Z90.711 Acquired absence of uterus with remaining cervical stump; Z98.51 Tubal ligation status; E83.51 Hypocalcemia; E83.42 Hypomagnesemia; E78.5 Hyperlipidemia, unspecified; E11.22 Type 2 diabetes mellitus with diabetic chronic kidney disease; I25.10 Atherosclerotic heart disease of native coronary artery without angina pectoris; Z95.1 Presence of aortocoronary bypass graft; D63.8 Anemia in other chronic diseases classified elsewhere; E66.01 Morbid (severe) obesity due to excess calories; Z95.810 Presence of automatic (implantable) cardiac defibrillator; E11.40 Type 2 diabetes mellitus with diabetic neuropathy, unspecified; F41.8 Other specified anxiety disorders; E83.39 Other disorders of phosphorus metabolism; E11.649 Type 2 diabetes mellitus with hypoglycemia without coma; W18.11XA Fall from or off toilet without subsequent striking against object, initial encounter
CPT/HCPCS: 36415; 51702; 70450; 71045; 74018; 74176; 74177; 80048; 80053; 80076; 81001; 81003; 81015; 82088; 82435; 82533; 82570; 82607; 82652; 82728; 82947; 83036; 83540; 83605; 83735; 83880; 83935; 83970; 84100; 84132; 84145; 84156; 84300; 84439; 84443; 84466; 84484; 85014; 85018; 85025; 85610; 87040; 87045; 87046; 87070; 87081; 87086; 87088; 87177; 87209; 87324; 87449; 87804; 89055; 93005; 93306; 94760; 96365; 96366; 96368; 97110; 97112; 97116; 97161; 97530; 99285; J0610; J0744; J1265; J1580; J1630; J1644; J2270; J2405; J3370; J3411; J3475; J7030; J7040; J7042; J7799; P9047; Q9967

== ENCOUNTER 2019-07-18 16:16 | Inpatient (IN) | payer OTHER ==
[2019-07-18] MEDS ORDERED: NA CHLORIDE 0.9% 1,000 ML ONE ×2 (17:06→19:28)
--- NOTE | 2019-07-18 18:40 | EDPHYS ---
Physician Documentation [facility] Name: Anita Harp Age: 69 yrs Sex: Female : 1950 Arrival Date: 07/18/2019 Time: 16:19 Bed 25 Private MD: ED Physician Ekaterina Traylor HPI: 07/17 19:42 This 69 yrs old Black Female presents to ER via EMS with complaints of General ma2 Weakness, Nausea. 19:42 The patient presents to the emergency department with nausea. Onset: The ma2 symptoms/episode began/occurred gradually, 2 day(s) ago. Associated signs and symptoms: Pertinent negatives: belching, dysuria, GI bleeding, hematuria. Severity of symptoms: At their worst the symptoms were mild in the emergency department the symptoms are unchanged. The patient has experienced similar episodes in the past. Historical: - Allergies: 16:30 Aspirin; hb 16:30 Ibuprofen; hb 16:30 PENICILLINS; hb - PMHx: 16:30 claustrophobia; Diabetes - NIDDM; COPD; CHF; Anxiety; Rheumatoid Arthritis; Panic hb Attacks; - PSHx: 16:30 Cholecystectomy; Tubal ligation; Partial Hysterectomy; hb - Immunization history:: Adult Immunizations up to date. - Social history:: Smoking status: Patient denies any tobacco usage or history of. Patient uses Patient/guardian denies using alcohol, street drugs, The patient lives with spouse. - Family history:: not pertinent. ROS: 19:42 Constitutional: Negative for fever, chills, and weight loss. ma2 19:42 All other systems are negative. Exam: 19:42 Constitutional: This is a well developed, well nourished patient who is awake, alert, ma2 and in no acute distress. Head/Face: Normocephalic, atraumatic. Eyes: Pupils equal round and reactive to light, extra-ocular motions intact. Lids and lashes normal. Conjunctiva and sclera are non-icteric and not injected. Cornea within normal limits. Periorbital areas with no swelling, redness, or edema. ENT: Nares patent. No nasal discharge, no septal abnormalities noted. Tympanic membranes are normal and external auditory canals are clear. Oropharynx with no redness, swelling, or masses, exudates, or evidence of obstruction, uvula midline. Mucous membranes moist. Neck: Trachea midline, no thyromegaly or masses palpated, and no cervical lymphadenopathy. Supple, full range of motion without nuchal rigidity, or vertebral point tenderness. No Meningismus. Chest/axilla: Normal chest wall appearance and motion. Nontender with no deformity. No lesions are appreciated. Cardiovascular: Regular rate and rhythm with a normal S1 and S2. No gallops, murmurs, or rubs. Normal PMI, no JVD. No pulse deficits. Respiratory: Lungs have equal breath sounds bilaterally, clear to auscultation and percussion. No rales, rhonchi or wheezes noted. No increased work of breathing, no retractions or nasal flaring. Abdomen/GI: Soft, non-tender, with normal bowel sounds. No distension or tympany. No guarding or rebound. No evidence of tenderness throughout. Neuro: Awake and alert, GCS 15, oriented to person, place, time, and situation. Cranial nerves II-XII grossly intact. Motor strength 5/5 in all extremities. Sensory grossly intact. Cerebellar exam normal. Normal gait. Vital Signs: 16:21 BP 90 / 41; Pulse 79; Resp 16; Temp 97.2; Pulse Ox 100% ; Weight 147.42 kg; Height 5 hb ft. 6 in. (167.64 cm); Pain 2/10; 16:53 BP 83 / 30; Pulse 79; Resp 18; Pulse Ox 100% on R/A; hb 18:00 BP 115 / 76; Pulse 79; Resp 16; Pulse Ox 99% on R/A; hb 19:19 BP 120 / 95; Pulse 84; Resp 15; Pulse Ox 96% on R/A; hb 19:30 ll1 20:00 Resp 16; ll1 21:00 BP 91 / 63; Pulse 94; Resp 17; ll1 21:39 Pulse 93; Resp 18; Pulse Ox 98% ; ll1 21:52 BP 91 / 71; Pulse 90; Resp 18; Pulse Ox 94% on 3 lpm NC; ll1 22:04 BP 91 / 73; Pulse 92; Resp 18; Temp 97.5; Pulse Ox 100% on 3 lpm NC; ll1 22:52 BP 109 / 80; Pulse 94; Resp 18; Pulse Ox 95% ; ll1 16:21 Body Mass Index 52.46 (147.42 kg, 167.64 cm) hb 19:30 refusing BP cuff to be put back on arm. ll1 20:00 refused BP cuff to be out on arm. ll1 21:00 Finally allowed BP to right FA. EKG leads placed back on chest. 1 MDM: 18:38 Patient medically screened. kdr 19:42 Differential diagnosis: Nonspecific abd pain, gastritis, cholecystitis, pancreatitis. ia2 19:43 Data reviewed: vital signs, nurses notes. ia2 07/17 16:42 Order name: CBC with Diff; Complete Time: 19:36 [facility] 07/17 16:42 Order name: Chem 7; Complete Time: 19:36 [facility] 07/17 18:34 Order name: Urine Dipstick--Ancillary (enter results) 1 07/17 18:34 Order name: Urine Culture [facility] 07/17 18:34 Order name: Urine Microscopic Only; Complete Time: 20:26 [facility] 07/17 18:35 Order name: Amylase, Serum; Complete Time: 20:26 [facility] 07/17 18:35 Order name: Blood Culture Adult (2) [facility] 07/17 18:35 Order name: Ckmb; Complete Time: 20:26 [facility] 07/17 18:35 Order name: CPK; Complete Time: 20:26 [facility] 07/17 18:35 Order name: Lactate; Complete Time: 20:26 [facility] 07/17 18:35 Order name: LFT's; Complete Time: 20:26 [facility] 07/17 18:35 Order name: Lipase; Complete Time: 20:26 [facility] 07/17 18:35 Order name: Procalcitonin; Complete Time: 20:26 [facility] 07/17 18:35 Order name: Protime (+inr); Complete Time: 20:28 [facility] 07/17 18:35 Order name: Ptt, Activated; Complete Time: 20:28 [facility] 07/17 18:35 Order name: Troponin (emerg Dept Use Only); Complete Time: 20:26 [facility] 07/17 18:35 Order name: Chest Single View XRAY; Complete Time: 19:36 kdr 07/17 20:07 Order name: Abdomen EDMS 07/17 20:51 Order name: CBC with Automated Diff EDMS 07/17 20:51 Order name: CBC with Automated Diff EDMS 07/17 20:51 Order name: Comprehensive Metabolic Panel EDMS 07/17 20:51 Order name: Comprehensive Metabolic Panel EDMS 07/17 16:42 Order name: Urine Dipstick-Ancillary (obtain specimen); Complete Time: 17:52 kdr 07/17 17:52 Order name: Rome; Complete Time: 17:52 hb 07/17 18:35 Order name: Accucheck; Complete Time: 19:09 kdr 07/17 18:35 Order name: Cardiac monitoring; Complete Time: 19:10 kdr 07/17 18:35 Order name: EKG - Nurse/Tech; Complete Time: 22:07 kdr 07/17 18:35 Order name: IV Saline Lock - Large Bore; Complete Time: 19:10 kdr 07/17 18:35 Order name: Labs collected and sent; Complete Time: 19:10 kdr 07/17 18:35 Order name: O2 Per Protocol; Complete Time: 19:10 kdr 07/17 18:35 Order name: O2 Sat Monitoring; Complete Time: 19:10 kdr 07/17 20:51 Order name: CONS Pharmacy Consult EDMA 07/17 20:51 Order name: Renal EDMA Administered Medications: 17:28 Drug: NS 0.9% 1000 ml Route: IV; Rate: 1 bolus; Site: left forearm; hb 19:00 Follow up: IV Status: Completed infusion; IV Intake: 1000ml 1 19:27 Not Given (Patient Refused): NS 0.9% (30 ml/kg) 30 ml/kg IV at bolus once; Sepsis 1 Protocol 20:00 Not Given (Patient Refused): Kayexalate 60 grams PO once ll1 20:28 Drug: Ativan 2 mg Route: IVP; Site: left antecubital; [facility] 20:53 Follow up: Response: No adverse reaction; Marked relief of symptoms 4 21:00 Drug: NS 0.9% 1000 ml Route: IV; Rate: 1 bolus; Site: left forearm; ll1 22:30 Follow up: IV Status: Infusion continued upon admission; IV Intake: 200ml 1 21:04 Drug: Insulin Regular Human 5 units {Co-Signature: edda (Oswald Gracia RN).} Route: IVP; 1 Site: left forearm; 22:00 Follow up: Response: No adverse reaction; RASS: Drowsy (-1) [facility] 21:04 Drug: D50W 50 ml Route: IVP; Site: left forearm; 1 22:00 Follow up: Response: No adverse reaction; RASS: Drowsy (-1) ll1 21:20 Drug: Sodium Bicarbonate 1 amp Route: IVP; Site: left forearm; ll1 21:54 Follow up: Response: No adverse reaction; RASS: Drowsy (-1) ll1 21:26 Drug: Albuterol 2.5 mg Route: Inhalation; ll1 22:01 Follow up: Response: No adverse reaction; RASS: Drowsy (-1) ll1 21:26 Drug: Calcium Gluconate 2 grams Route: IVPB; Infused Over: 60 mins; Site: left forearm; ll1 22:20 Follow up: Response: No adverse reaction; RASS: Drowsy (-1); IV Status: Completed ll1 infusion; IV Intake: 200ml 22:00 Not Given (Patient Refused): Kayexalate 30 grams PO once ll1 Disposition: 07/18/19 18:38 Hospitalization ordered by Ekaterina Romo for Inpatient Admission. Preliminary diagnosis are Weakness, Urinary tract infection, site not specified. - Bed requested for Intensive Care Unit. - Status is Inpatient Admission. lp1 - Condition is Fair. - Problem is new. - Symptoms are unchanged. Signatures: Dispatcher [employer] EDMA Saad Navarrete MD MD [facility] Chanel Newman, RN RN lp1 Keila Bowman RN RN tl1 Brennan Katz PA PA cp Baxter, Heather, RN RN Oswald Gracia, CHRISTOPH RN jb4 Ekaterina Traylor MD MD ma2 Ladi Ahn RN RN ll1 Oswald Gracia RN jb4 Corrections: (The following items were deleted from the chart) 20:07 19:13 Abdomen Pelvis W Con+CT.RAD.BRZ ordered. EDMA EDMS 21:02 18:38 Hospitalization Ordered by Ekaterina Romo MD for Observation. Preliminary tl1 diagnosis is Weakness; Urinary tract infection, site not specified. Bed requested for Telemetry/MedSurg (observation). Status is Observation. Condition is Fair. Problem is new. Symptoms are unchanged. kdr 21:51 21:02 07/18/2019 18:38 Hospitalization Ordered by Ekaterina Romo MD for Observation. tl1 Preliminary diagnosis is Weakness; Urinary tract infection, site not specified. Bed requested for Telemetry/MedSurg (observation). Status is Observation. Condition is Fair. Problem is new. Symptoms are unchanged. tl1 21:52 21:51 07/18/2019 18:38 Hospitalization Ordered by Ekaterina Romo MD for Observation. tl1 Preliminary diagnosis is Weakness; Urinary tract infection, site not specified. Bed requested for Intensive Care Unit. Status is Observation. Condition is Fair. Problem is new. Symptoms are unchanged. tl1 21:56 21:52 07/18/2019 18:38 Hospitalization Ordered by Ekaterina Romo MD for Observation. tl1 Preliminary diagnosis is Weakness; Urinary tract infection, site not specified. Bed requested for Intensive Care Unit. Status is Observation. Condition is Fair. Problem is new. Symptoms are unchanged. tl1 22:07 21:56 07/18/2019 18:38 Hospitalization Ordered by Ekaterina Romo MD for Observation. tl1 Preliminary diagnosis is Weakness; Urinary tract infection, site not specified. Bed requested for Intensive Care Unit. Status is Observation. Condition is Fair. Problem is new. Symptoms are unchanged. tl1 23:11 22:07 07/18/2019 18:38 Hospitalization Ordered by Ekaterina Romo MD for Inpatient lp1 Admission. Preliminary diagnosis is Weakness; Urinary tract infection, site not specified. Bed requested for Intensive Care Unit. Status is Inpatient Admission. Condition is Fair. Problem is new. Symptoms are unchanged. tl1
--- NOTE | 2019-07-18 18:40 | ER ---
Nurse's Notes [facility] Name: Anita Harp Age: 69 yrs Sex: Female : 1950 Arrival Date: 07/18/2019 Time: 16:19 Bed 25 Private MD: Diagnosis: Weakness;Urinary tract infection, site not specified Presentation: 07/17 16:21 Chief complaint: EMS states: Generalized weakness and nausea x 1 week. Coronavirus hb screen: Proceed with normal triage. Ebola Screen: No symptoms or risks identified at this time. Initial Sepsis Screen: Does the patient meet any 2 criteria? No. Patient's initial sepsis screen is negative. Does the patient have a suspected source of infection? No. Patient's initial sepsis screen is negative. Risk Assessment: Do you want to hurt yourself or someone else? Patient reports no desire to harm self or others. Onset of symptoms was July 18, 2019. 16:21 Method Of Arrival: EMS: [facility] 16:21 Acuity: DENTON 3 hb 16:53 Acuity: DENTON 2 hb Triage Assessment: 16:25 General: Appears in no apparent distress. Behavior is calm, cooperative. Pain: Denies hb pain. EENT: No signs and/or symptoms were reported regarding the EENT system. Neuro: Level of Consciousness is awake, obeys commands, Oriented to person, place, situation. Cardiovascular: Capillary refill < 3 seconds Patient's skin is warm and dry. Respiratory: Airway is patent Respiratory effort is even, unlabored, Respiratory pattern is regular, symmetrical. GI: Abdomen is non-distended, Reports nausea. : No signs and/or symptoms were reported regarding the genitourinary system. Derm: Skin is pink, warm \T\ dry. Musculoskeletal: No signs and/or symptoms reported regarding the musculoskeletal system. Historical: - Allergies: 16:30 Aspirin; hb 16:30 Ibuprofen; hb 16:30 PENICILLINS; hb - PMHx: 16:30 claustrophobia; Diabetes - NIDDM; COPD; CHF; Anxiety; Rheumatoid Arthritis; Panic hb Attacks; - PSHx: 16:30 Cholecystectomy; Tubal ligation; Partial Hysterectomy; hb - Immunization history:: Adult Immunizations up to date. - Social history:: Smoking status: Patient denies any tobacco usage or history of. Patient uses Patient/guardian denies using alcohol, street drugs, The patient lives with spouse. - Family history:: not pertinent. Screenin:30 Abuse screen: Denies threats or abuse. Denies injuries from another. Nutritional hb screening: No deficits noted. Tuberculosis screening: No symptoms or risk factors identified. Fall Risk Total Hernández Fall Scale indicates Low Risk Score (25-44 pts). Fall prevention measures have been instituted. Side Rails Up X 2 Frequent Obs/Assesments occuring As available Patient and Family Educated on Fall Prevention Program and strategies. Assessment: 16:25 General: SEE TRIAGE. hb 16:57 Reassessment: Unable to establish PIV access, Dr. Navarrete and Charge Nurse Angelina HAWTHORNE hb notified. 17:01 Reassessment: Celia RN at bedside for PIV placement, Dr. Navarrete aware. hb 17:30 Reassessment: Patient appears in no apparent distress at this time. No changes from hb previously documented assessment. Patient and/or family updated on plan of care and expected duration. Pain level reassessed. 17:40 Reassessment: Bright red vaginal bleeding noted before brito insertion. Dr. Navarrete notified. 17:46 Reassessment: Inside lab at bedside for blood draw. hb 18:30 Reassessment: Patient appears in no apparent distress at this time. Patient and/or hb family updated on plan of care and expected duration. Pain level reassessed. 19:30 Reassessment: Patient and/or family updated on plan of care and expected duration. Pain ll1 level reassessed. Refusing medications, cursing at staff. Refusing to be touched. 20:30 Reassessment: No changes from previously documented assessment. Patient and/or family ll1 updated on plan of care and expected duration. Pain level reassessed. Refusing to be touched. To CT via stretcher with CHRISTOPH Regalado. 21:00 Reassessment: No changes from previously documented assessment. Drowsy after returning ll1 from CT scan. Allowed BP cuff, EKG leads, and pulse ox to be re-attached. 22:00 Reassessment: No changes from previously documented assessment. Patient and/or family ll1 updated on plan of care and expected duration. Pain level reassessed. Still drowsy. Vital Signs: 16:21 BP 90 / 41; Pulse 79; Resp 16; Temp 97.2; Pulse Ox 100% ; Weight 147.42 kg; Height 5 hb ft. 6 in. (167.64 cm); Pain 2/10; 16:53 BP 83 / 30; Pulse 79; Resp 18; Pulse Ox 100% on R/A; hb 18:00 BP 115 / 76; Pulse 79; Resp 16; Pulse Ox 99% on R/A; hb 19:19 BP 120 / 95; Pulse 84; Resp 15; Pulse Ox 96% on R/A; hb 19:30 ll1 20:00 Resp 16; ll1 21:00 BP 91 / 63; Pulse 94; Resp 17; ll1 21:39 Pulse 93; Resp 18; Pulse Ox 98% ; ll1 21:52 BP 91 / 71; Pulse 90; Resp 18; Pulse Ox 94% on 3 lpm NC; ll1 22:04 BP 91 / 73; Pulse 92; Resp 18; Temp 97.5; Pulse Ox 100% on 3 lpm NC; ll1 22:52 BP 109 / 80; Pulse 94; Resp 18; Pulse Ox 95% ; ll1 16:21 Body Mass Index 52.46 (147.42 kg, 167.64 cm) hb 19:30 refusing BP cuff to be put back on arm. ll1 20:00 refused BP cuff to be out on arm. ll1 21:00 Finally allowed BP to right FA. EKG leads placed back on chest. ll1 Vitals: 21:52 Cardiac Rhythm Assessment Regular Sinus rhythm. ll1 22:04 Cardiac Rhythm Assessment Regular Sinus rhythm. ll1 ED Course: 16:19 Patient arrived in ED. em1 16:21 Allison Avila, CHRISTOPH is Primary Nurse. hb 16:23 Saad Navarrete MD is Attending Physician. kdr 16:23 Triage completed. hb 16:30 Arm band placed on. hb 16:45 Patient has correct armband on for positive identification. Bed in low position. Call hb light in reach. Side rails up X2. 17:25 Missed attempt(s): 22 gauge in right upper arm. Bleeding controlled, band aid applied, ll1 catheter tip intact. 17:28 Inserted saline lock: 22 gauge in left forearm, using aseptic technique. ll1 17:34 Brito cath inserted, using sterile technique, 16 Fr., by ms, balloon inflated, to hb gravity drainage, urine specimen collected. 18:37 Ekaterina Romo MD is Hospitalizing Provider. kdr 18:51 Chest Single View XRAY In Process Unspecified. EDMS 19:17 Radiology exam delayed due to lab results not completed at this time. (BUN/Creatinine). vm2 19:30 Notified the admitting physician of a critical lab result(s), Potassium 7.0. Dr. Romo [facility] informed. Given verbal order for kayexalate. 19:42 Attending Physician role handed off by Saad Navarrete MD [facility] 19:42 Ekaterina Traylor MD is Attending Physician. ma2 20:00 Notified the admitting physician of Refusing Kayexalate, refusing second IV and blood ll1 draw. Patient started cursing and hit my left hand while trying to draw her blood. Dr. Romo informed. 20:35 Abdomen In Process Unspecified. EDMS 21:35 No provider procedures requiring assistance completed. ll1 22:16 Patient admitted, IV remains in place. 1 23:00 Changed diaper of BM stool upon arrival to ICU. Vaginal bleeding still noted during ll1 procedure. Luba area cleaned, dry clean diaper applied. Administered Medications: 17:28 Drug: NS 0.9% 1000 ml Route: IV; Rate: 1 bolus; Site: left forearm; hb 19:00 Follow up: IV Status: Completed infusion; IV Intake: 1000ml [facility] 19:27 Not Given (Patient Refused): NS 0.9% (30 ml/kg) 30 ml/kg IV at bolus once; Sepsis ll1 Protocol 20:00 Not Given (Patient Refused): Kayexalate 60 grams PO once 1 20:28 Drug: Ativan 2 mg Route: IVP; Site: left antecubital; 4 20:53 Follow up: Response: No adverse reaction; Marked relief of symptoms 4 21:00 Drug: NS 0.9% 1000 ml Route: IV; Rate: 1 bolus; Site: left forearm; 1 22:30 Follow up: IV Status: Infusion continued upon admission; IV Intake: 200ml 1 21:04 Drug: Insulin Regular Human 5 units {Co-Signature: jb4 (Oswald Gracia RN).} Route: IVP; ll1 Site: left forearm; 22:00 Follow up: Response: No adverse reaction; RASS: Drowsy (-1) [facility] 21:04 Drug: D50W 50 ml Route: IVP; Site: left forearm; ll1 22:00 Follow up: Response: No adverse reaction; RASS: Drowsy (-1) ll1 21:20 Drug: Sodium Bicarbonate 1 amp Route: IVP; Site: left forearm; ll1 21:54 Follow up: Response: No adverse reaction; RASS: Drowsy (-1) ll1 21:26 Drug: Albuterol 2.5 mg Route: Inhalation; ll1 22:01 Follow up: Response: No adverse reaction; RASS: Drowsy (-1) ll1 21:26 Drug: Calcium Gluconate 2 grams Route: IVPB; Infused Over: 60 mins; Site: left forearm; ll1 22:20 Follow up: Response: No adverse reaction; RASS: Drowsy (-1); IV Status: Completed ll1 infusion; IV Intake: 200ml 22:00 Not Given (Patient Refused): Kayexalate 30 grams PO once ll1 Intake: 19:00 IV: 1000ml; Total: 1000ml. ll1 22:20 IV: 200ml; Total: 1200ml. ll1 22:30 IV: 200ml; Total: 1400ml. ll1 Outcome: 18:38 Decision to Hospitalize by Provider. kdr 22:15 Condition: stable ll1 22:15 Instructed on the need for admit. 22:27 Admitted to ICU Report called to Aspen Choi RN in ICU ll1 22:27 Admitted to ICU accompanied by nurse, room ICU 7. 22:27 Condition: stable 23:11 Patient left the ED. lp1 Signatures: Dispatcher [employer] EDMS Saad Navarrete MD MD kdr Martinez, Eric em1 Chanel Newman, CHRISTOPH RN lp1 Allison Avila RN RN hb Bryson, James, RN RN jb4 Maria Luisa Tyson [facility] Ekaterina Traylor MD MD ak2 Ladi Ahn RN RN ll1 Oswald [email or web address] Corrections: (The following items were deleted from the chart) 21:39 20:30 Reassessment: No changes from previously documented assessment. Patient and/or ll1 family updated on plan of care and expected duration. Pain level reassessed. Refusing to be touched. ll1 22:28 22:15 Admitted to ICU accompanied by nurse, via stretcher, room ICU 7, ll1 ll1
[2019-07-18 18:47] LABS: Basophils % 0.6 % (0-1.3); Hematocrit 29.7 % (36.0-45.0); Lymphocytes % 10.9 % (15.3-44.8); MPV 8.7 fL (7.6-11.3); RBC Red Blood Cell Count 2.95 M/uL (3.86-4.86)
--- NOTE | 2019-07-18 19:03 | RAD REPORT ---
EXAM DESCRIPTION: RAD - Chest Single View - 07/18/2019 6:51 pm CLINICAL HISTORY: weakness Chest pain. COMPARISON: Abdomen 1 View (KUB) dated 06/23/2019; Abdomen 1 View (KUB) dated 06/22/2019; Chest Single View dated 06/16/2019; CHEST SINGLE VIEW dated 02/01/2014 FINDINGS: Portable technique limits examination quality. The lungs are grossly clear. The heart is mildly prominent with single lead pacer/defibrillator devic e. No displaced fractures. IMPRESSION: No acute intrathoracic process suspected.
[2019-07-18 19:54] LABS: Urine Bacteria <20 /HPF (<20); Urine Culture Reflex Order REFLEXED; Urine RBC <5 /HPF (NONE SEEN); Urine Yeast MANY (NONE SEEN)
[2019-07-18] MEDS ORDERED: SOD POLYSTYREN SUL 15 GM/60 ML UCUP ONE (19:54)
[2019-07-18 19:55] LABS: ALT/SGPT 11 U/L (12-78); AST/SGOT 27 U/L (15-37); Albumin 2.1 g/dL (3.4-5.0); Alkaline Phosphatase 68 U/L (45-117); Amylase Level 79 U/L (25-115); Bilirubin Direct 0.2 mg/dL (0-0.2); CKMB Creatine Kinase MB < 1.0 ng/mL (0.3-3.6); Creatine Phosphokinase 48 U/L (26-192); Lipase 115 U/L (73-393); Troponin (Emerg Dept Use Only) < 0.02 ng/mL (0.0-0.045)
[2019-07-18] MEDS ORDERED: LORazepam 2 MG/ML VIAL ONE (20:24)
[2019-07-18 20:25] LABS: Bilirubin Total 0.4 mg/dL (0.2-1.0)
[2019-07-18 20:26] LABS: Protime INR 1.4
[2019-07-18] MEDS ORDERED: ONDANSETRON 4 MG/2 ML VIAL IV PRN (20:46)
[2019-07-18] MEDS ORDERED: ACETAMINOPHEN 500 MG TAB PO PRN (20:46)
[2019-07-18 20:48] LABS: Urine Blood NEGATIVE (NEG); Urine Glucose NEGATIVE (NEG); Urine Protein TRACE (NEG); Urine Specific Gravity 1.025 (1.005-1.030); Urine pH 5.5 (5.0-7.0)
--- NOTE | 2019-07-18 20:52 | RAD REPORT ---
EXAM DESCRIPTION: CT - Abdomen Pelvis Wo Contrast - 07/18/2019 8:34 pm CLINICAL HISTORY: Abdominal pain. vaginal bleeding;Abd pain COMPARISON: Abdomen Pelvis W Contrast dated 06/25/2019 TECHNIQUE: CT imaging of the abdomen and pelvis was performed without contrast. Solid organ, bowel a nd vascular assessment is limited due to lack of IV and oral contrast. All CT scans are performed using dose optimization technique as appropriate and may include automated exposure control or mA/KV adjustment according to patient size. FINDINGS: The lower lung vivas are clear.Pacemaker device present. The liver, spleen, pancreas, adrenal glands and kidneys are within normal limits for a limited non-co ntrast examination.Cholecystectomy. No bowel obstruction, free air, free fluid or abscess. The appendix is not identified as a discrete structure, however, no secondary findings of appendicitis are identified. Rome catheter is present in the urinary bladder. Moderate lumbar degenerative changes.Mild fibroid uterus suspected. IMPRESSION: No acute intra-abdominal or pelvic findings. Probable fibroid uterus. A limited non-contrast examination was performed as detailed.
[2019-07-18] MEDS ORDERED: ALBUTEROL 2.5 MG/3 ML NEB SOL ONE (20:54)
[2019-07-18] MEDS ORDERED: INSULIN -REGULAR HUMAN 50 UNIT/0.5 ML ML ONE (20:55)
[2019-07-18] MEDS ORDERED: D50W 25 GM/50 ML SYRINGE/VIAL IV ONE (20:55)
[2019-07-18] MEDS ORDERED: CALCIUM GLUCONATE 1 GM IVPB 2 GM/100 ML BAG IV ONE (21:03)
[2019-07-18] MEDS ORDERED: SODIUM BICARB 50 MEQ/50ML VIAL ONE (21:13)
[2019-07-19 00:22] LABS: Potassium 7.4 mmol/L (3.5-5.1)
[2019-07-19 00:51] VITALS: BMI 46.3
[2019-07-19] MEDS ORDERED: D50W 25 GM/50 ML SYRINGE/VIAL IV PRN ×2 (01:06→06:42)
[2019-07-19] MEDS ORDERED: INSULIN -REGULAR HUMAN 50 UNIT/0.5 ML ML IV ONE ×2 (01:06→07:00)
[2019-07-19] MEDS ORDERED: GLUCAGON 1 MG/VIAL IM PRN ×3 (01:06→14:14)
[2019-07-19] MEDS ORDERED: D50W 25 GM/50 ML SYRINGE/VIAL IV ONE ×2 (01:06→06:42)
[2019-07-19] MEDS ORDERED: FUROSEMIDE 20 MG/ 2ML VIAL IV ONE (01:17)
[2019-07-19] MEDS: D5W 1,000 ML with NA BICARB 8.4% 50 MEQ IV SCH ×4 (01:19→17:13)
[2019-07-19] MEDS ORDERED: D5W 1,000 ML IV ONE (01:22)
--- NOTE | 2019-07-19 01:55 | P.HP ---
Certification for Inpatient Patient admitted to: Inpatient With expected LOS: >2 Midnights Patient will require the following post-hospital care: None Practitioner: I am a practitioner with admitting privileges, knowledge of patient current condition, hospital course, and medical plan of care. Services: Services provided to patient in accordance with Admission requirements found in Title 42 Section 412.3 of the Code of Federal Regulations Patient History Date of Service: 07/18/19 Reason for admission: Hyperkalemia; acute kidney injury; anemia; hypoalbuminemia History of Present Illness: Patient is a 69-year-old female who was admitted to the hospital with nausea x1 week. Patient has not been feeling well and has had generalized weakness. She was brought into the emergency room for further evaluation. In the emergency room, patient's workup revealed severe hyperkalemia with acute kidney injury. Patient has been on amiloride along with potassium supplementation and angiotensin receptor norma. With patient's acute kidney injury patient's amiloride will probably take 24 to 72 hr to be removed out of patient's system. Patient was given 1 amp of sodium bicarb, 1 amp of calcium gluconate, and a 1/2 amp of D50 with insulin. Will continue to check patient's labs closely. Patient also with acute kidney injury and will gently hydrate. Patient will need Nephrology consultation as well. Patient will need admission to the hospital for further evaluation. Allergies aspirin Allergy (Mild, Verified 02/03/13 23:31) Hives Penicillins Allergy (Mild, Verified 02/03/13 23:30) Hives ibuprofen Allergy (Verified 06/17/19 04:53) Unknown Home Medications: Albuterol Sulfate [Proair Hfa] 90 mcg IH Q4HR 02/04/13 Metformin HCl [Glucophage*] 500 mg PO BIDWM 02/04/13 Venlafaxine HCl [Effexor XR] 150 mg PO DAILY 02/04/13 Liraglutide [Victoza 2-Walker] 1.8 mg SQ DAILY 01/30/14 Fluticasone/Salmeterol [Advair 500/50 Diskus*] 1 puff IH BID #1 disk 02/02/14 Gabapentin 600 mg PO TID 06/20/19 traMADol HCL [Ultram*] 50 mg PO BIDP PRN 06/20/19 Amiloride HCl 5 mg PO DAILY #30 tablet 06/27/19 Calcitrol [Rocaltrol*] 0.5 mcg PO DAILY #30 cap 06/27/19 Calcium Carbonate [Oscal*] 1,000 mg PO TID #90 tab 06/27/19 Cholestyramine/Asp [Questran Light*] 4 gm PO BIDWM #60 packet 06/27/19 Ciprofloxacin HCl [Cipro 500 MG Tablet] 500 mg PO BID #10 tab 06/27/19 Magnesium Oxide [Mag 0X*] 400 mg PO BID #60 tab 06/27/19 Potassium Chloride [Klor-Con M20] 80 meq PO DAILY #120 tab.er.prt 06/27/19 Simethicone [Mylicon*] 80 mg PO TID #90 tab 06/27/19 Valsartan 40 mg PO DAILY #30 tablet 06/27/19 metroNIDAZOLE [Flagyl] 500 mg PO Q8H #15 tablet 06/27/19 Ondansetron HCl 4 mg PO Q6HP PRN 07/19/19 Potassium Chloride 07/19/19 Thiamine HCl [Vitamin B-1] 100 mg PO DAILY 07/19/19 carvediloL [Carvedilol] 12.5 mg PO BID 07/19/19 - Past Medical/Surgical History Diabetic: Yes -: NIDDM -: asthma -: CHF -: Hyperlipidemia -: COPD -: CHF -: RA -: Anxiety -: claustrophobia -: HTN -: defibrilator -: gallbladder -: partial hysterectomy -: tubal ligation - Family History Mother Medical History: Heart disease, Hypertension, Diabetes Notes: asthma - Social History Smoking Status: Unknown if ever smoked Alcohol use: No CD- Drugs: No Review of Systems 10-point ROS is otherwise unremarkable Physical Examination - Vital Signs Temperature: 97.5 F Blood Pressure: 124/90 Pulse: 100 Respirations: 18 Pulse Ox (%): 95 - Physical Exam General: Alert, In no apparent distress, Confused HEENT: Atraumatic, PERRLA, Mucous membr. moist/pink, EOMI, Sclerae nonicteric Neck: Supple, 2+ carotid pulse no bruit, No LAD, Without JVD or thyroid abnormality Respiratory: Clear to auscultation bilaterally, Normal air movement Cardiovascular: Regular rate/rhythm, Normal S1 S2, No murmurs Gastrointestinal: Normal bowel sounds, Soft and benign, Non-distended, No tenderness Musculoskeletal: No clubbing, No swelling, No tenderness Integumentary: No rashes Neurological: Normal speech, Normal tone, Sensation intact, Cranial nerves 3-12 intact, Normal affect, Abnormal gait, Abnormal strength Lymphatics: No axilla or inguinal lymphadenopathy - Studies Laboratory Data (last 24 hrs) 07/18/19 20:01: PT 16.4 H, INR 1.40, APTT 16.6 L 07/18/19 19:15: Total Bilirubin 0.4, AST 27, ALT 11 L, Alkaline Phosphatase 68, Amylase 79, Lipase 115 07/18/19 18:32: Sodium 141, Potassium 7.0 H*, BUN 42 H, Creatinine 2.64 H, Glucose 90 07/18/19 18:32: WBC 9.6, Hgb 9.5 L, Hct 29.7 L, Plt Count 224 Assessment & Plan - Problems (Diagnosis) (1) Hyperkalemia Current Visit: Yes Status: Acute (2) Acute kidney injury Current Visit: Yes Status: Acute (3) COPD (chronic obstructive pulmonary disease) Current Visit: No Status: Chronic (4) DM type 2 (diabetes mellitus, type 2) Current Visit: No Status: Chronic - Plan Plan: 1. Continue with monitoring potassium level and ACLS protocol for elevated potassium level; continue monitoring acute kidney injury 2. Nephrology consultation 3. Renal ultrasound 4. BMP monitoring closely 5. IV antibiotics for UTIs 6. Monitor H&H closely; check iron studies 7. Monitor albumin level and nutrition 8. Monitor PT and INR 9. GI and DVT prophylaxis Discharge Plan: Home Plan to discharge in: Greater than 2 days - Advance Directives Does patient have a Living Will: No Does patient have a Durable POA for Healthcare: No - Code Status/Comfort Care Code Status Assessed: Yes Code Status: Full Code Critical Care: Yes Time Spent Managing PTS Care (In Minutes): 60
[2019-07-19] MEDS ORDERED: CEFTRIAXONE/SWI 1gm 1 GM/10 ML SYR IV ONE (02:00)
[2019-07-19 05:54] LABS: Bilirubin Total 0.3 mg/dL (0.2-1.0); Protein, Total 8.9 g/dL (6.4-8.2)
[2019-07-19 05:55] LABS: Potassium 6.3 mmol/L (3.5-5.1)
[2019-07-19 05:59] LABS: Absolute Lymphocytes (CBC) 1.2 K/uL (0.7-4.9); Basophils % 0.5 % (0-1.3); Hematocrit 27.5 % (36.0-45.0); Lymphocytes % 13.1 % (15.3-44.8); MPV 8.6 fL (7.6-11.3); RBC Red Blood Cell Count 2.77 M/uL (3.86-4.86)
[2019-07-19] MEDS ORDERED: SODIUM BICARB 50 MEQ/50ML VIAL ONE (06:18)
[2019-07-19 06:46] LABS: Anisocytosis 1+; Blood Morphology Comment NOTED (NOT SEEN); Platelet Estimate ADEQ; Urine White Blood Cell Casts OK
[2019-07-19] MEDS ORDERED: ONDANSETRON 4 MG (ODT) TAB PO PRN (07:02)
[2019-07-19] MEDS ORDERED: NA CHLORIDE 0.9% 1,000 ML ONE (07:17)
[2019-07-19] MEDS ORDERED: ALBUTEROL 2.5 MG/3 ML NEB SOL NEB ONE ×2 (07:22→15:00)
[2019-07-19] MEDS ORDERED: NA CHLORIDE 0.9% 1,000 ML IV SCH ×2 (07:22→12:00)
[2019-07-19] MEDS ORDERED: FUROSEMIDE 40 MG/4 ML VIAL IV SCH ×2 (07:24→12:00)
[2019-07-19] MEDS ORDERED: CALCIUM GLUC 10% INJ 9.3 MEQ in NA CHLORIDE 0.9% 100 ML IV ONE (07:25)
[2019-07-19] MEDS: CHOLESTYRAMINE/ASP 4 GM/PKT PO SCH ×2 (08:00→17:00)
[2019-07-19] MEDS: GABAPENTIN 300 MG CAP PO SCH ×4 (08:27→21:00)
[2019-07-19] MEDS: MAGNESIUM OXIDE 400 MG TAB PO SCH ×2 (08:27→21:00)
--- NOTE | 2019-07-19 10:45 | RAD REPORT ---
EXAM DESCRIPTION: RAD - Chest Single View - 07/19/2019 10:32 am CLINICAL HISTORY: Picc line placement COMPARISON: Chest Single View dated 07/18/2019; Abdomen 1 View (KUB) dated 06/23/2019; Abdomen 1 View (KUB) dated 06/22/2019; Chest Single View dated 06/16/2019 FINDINGS: Portable chest was obtained following placement of a left upper extremity PICC line. The c atheter tip projects over the SVC..
[2019-07-19] MEDS ORDERED: D5 0.2 NS 1,000 ML IV SCH (12:00)
[2019-07-19 12:12] LABS: Hematocrit 25.6 % (36.0-45.0)
[2019-07-19 12:41] LABS: Potassium 5.6 mmol/L (3.5-5.1)
[2019-07-19] MEDS: INSULIN -REGULAR HUMAN 50 UNIT/0.5 ML ML IV ONE ×2 (14:45→14:56)
[2019-07-19] MEDS: D50W 25 GM/50 ML SYRINGE/VIAL IV ONE ×2 (14:54→15:00)
[2019-07-19] MEDS: FUROSEMIDE 20 MG/ 2ML VIAL IV ONE ×2 (14:55→15:00)
--- NOTE | 2019-07-19 16:39 | P.PN ---
Subjective Date of Service: 07/19/19 Chief Complaint: Hyperkalemia; acute kidney injury; anemia; hypoalbuminemia Subjective: Other (Patient with low blood pressure this morning. Patient required boluses. Patient with increased lethargy.) Physical Examination - Vital Signs Temperature: 97.4 F Blood Pressure: 114/87 Pulse: 101 Respirations: 19 Pulse Ox (%): 100 - Physical Exam General: Other (Increase sedation) Neck: Supple Respiratory: Clear to auscultation bilaterally, Normal air movement Cardiovascular: Normal pulses, Regular rate/rhythm Gastrointestinal: Normal bowel sounds, Non-distended Neurological: Other (Increase sedation) - Studies Laboratory Data (last 24 hrs) 07/18/19 20:01: PT 16.4 H, INR 1.40, APTT 16.6 L 07/18/19 19:15: Total Bilirubin 0.4, AST 27, ALT 11 L, Alkaline Phosphatase 68, Amylase 79, Lipase 115 07/18/19 18:32: Sodium 141, Potassium 7.0 H*, BUN 42 H, Creatinine 2.64 H, Glucose 90 07/18/19 18:32: WBC 9.6, Hgb 9.5 L, Hct 29.7 L, Plt Count 224 Microbiology Data (last 24 hrs): 07/18/19 20:01 Blood - Blood Anaerobic Blood Culture - Final Medications List Reviewed: Yes Assessment & Plan Discharge Plan: Other ([facility] facility) Plan to discharge in: Greater than 2 days Physician Review Additional Text: Impression: Acute on chronic renal failure stage 2 with hyperkalemia Hypotension likely from volume depletion COPD Anemia of chronic disease GERD History of hypertension History of diabetes mellitus type 2 Plan: Case discussed at length with nephrology. Patient will receive 3 L of fluid as the patient appears volume depleted Will repeat treatment for hyperkalemia. Will monitor hemoglobin closely. Patient may require transfusion if this continues to decline. No evidence of infection. Antibiotics have been discontinued. No indication for sepsis as pro calcitonin and lactic acid unremarkable. Blood and urine cultures obtained. Continue sliding scale. Will hold blood pressure medication. Will hold diabetic medication at this time. Continue monitor the patient closely. Will monitor hemoglobin. Time Spent Managing Pts Care (In Minutes): 55
--- NOTE | 2019-07-19 17:15 | CON ---
Date of Consultation: 07/19/2019 Reason For Consultation: Hyperkalemia, elevated BUN and creatinine, acidosis. History Of Present Illness: All the information has been obtained from the record. Patient received Ativan altered mental status. Patient well known to me from previous admission. This is a 69-year-old black female with significant past medical history of diabetes, complicated with neuro gunner, no nephropathy, no retinopathy; congestive heart failure, questionable; COPD; rheumatoid arthr itis; patient had psychogenic polydipsia, recently admitted to the hospital. At that time, patient h ad significant polyuria. After we gave the patient access to water, her hypernatremia resolved. Pat negra faced problem with salt wasting RTA. For that reason, patient was placed on amiloride. Patient discharged on amiloride and KCl 80 per day. Her magnesium was stable upon discharge. Her potassium was stable. Unfortunately, patient for the last couple of days started having nausea, decreased int ford. For that reason, brought by the family. Upon arrival to the emergency room, patient's blood pr essure was down, found to have hyperkalemia with potassium above 7 and elevated BUN and creatinine. Creatinine was above 2. Patient upon discharge, her creatinine was less than 1. Patient in the ER r eceived cocktail including albuterol, D50, insulin, and sodium bicarb. Repeated potassium down to th e 6. Patient is still altered. CT did not show any pathology except uterine fibroid. Patient was s tarted on IV hydration. We have been consulted because of hyperkalemia, elevated BUN and creatinine and acidosis. In the morning, because the repeated potassium was still elevated, we repeat the cours e of the hyperkalemia treatment. Also, patient given another bolus of the fluid for a total of 3 L a nd another 2 L extra and given Lasix also. Blood pressure started to stabilize. When I saw her, her blood pressure was around 110. Patient had since the morning around 600 of urine output. Past Medical History: 1.Diabetes, complicated with neuropathy. 2.RTA. 3.Psychogenic polydipsia. 4.Bronchial asthma. 5.Questionable of congestive heart failure. 6.COPD. 7.Hypertension. Home Medications: 1.Albuterol. 2.Metformin. 3.Effexor. 4.Victoza. 5.Gabapentin. 6.Tramadol. 7.Amiloride 5 mg daily. 8.Calcitriol 0.5. 9.Calcium carbonate. 10.Ciprofloxacin. 11.KCl. 12.Valsartan 40. 13.Flagyl. 14.Zofran. 15.Thiamine. 16.Carvedilol. Past Surgical History: 1.Partial hysterectomy. 2.Tubal ligation. Family History: Include hypertension, coronary artery disease, and diabetes. Social History: Denies smoking, denies drinking, denies drugs abuse. Review of Systems: Head and Neck: No red eye. No ear pain. GI: Has decreased intake. Has nausea without any vomiting. : No polyuria. No dysuria. No hematuria. Patient was already on antibiotic. Mica Sizer: Vaginal bleed. Respiratory: No shortness of breath. Cardiovascular: No orthopnea, has slight leg swelling. ENDOCRINE: No polydipsia. SKIN: No rash. Physical Examination: Vital Signs: When I saw the patient, blood pressure 109/64, tachycardic of 100, afebrile. Chest: Clear to auscultation. Heart: S1, S2. Regular. Tachycardic. Abdomen: Soft, nontender. Extremities: Trace edema. Neuro: A lot sleepy. Moves 4 extremities without any focal response to verbal. Laboratory Data: From a previous admission, ejection fraction of 53%, no diastolic dysfunction, has ICD. WBC 7, H and H 8.6/26. Sodium 145, potassium of 3, bicarb 26, calcium 8.7. Upon this admissio n, sodium 141, potassium 7, bicarb 17, BUN 42, creatinine 2.6, calcium 10.3. WBC 9.6, H and H 9.5/29 .7. Today's lab data, sodium 145, potassium 6.3, bicarb 19, BUN 41, creatinine 2.3, calcium 10.1, al bumin of 2. Urinalysis, specific gravity of 1.025. Again, this is with amiloride, WBC of 10. Current Medications: 1.Ceftriaxone. 2.Cholestyramine. 3.Gabapentin. 4.Zofran. 5.IV fluids. Assessment And Plan: Acute kidney injury secondary to prerenal, obstructive uropathy, has been ruled out with the finding on the CT. Superimposed with amiloride. Superimposed with calcium diuresis se condary to hypercalcemia, complicated with hyperkalemia and acidosis, look to me still on the dry pavithra e. I going to go ahead and: 1.Hold amiloride. 2.Give the patient a total of another 3 L boluses. We will give after the first 1 L 40 of Lasix, an d we will monitor the patient closely. We will repeat lab after 2- to 3-hour from the Lasix to evalu ate the hyperkalemia, and we will monitor. 3.Hyperkalemia, multifactorial, secondary to renal failure and potassium supplement superimposed wit h amiloride. 4.We will continue hydration. We will give normal saline and Lasix. We will give albuterol and D50 with insulin, and we will repeat the lab. I going to be considering repeating urine electrolyte aft er weaning from the amiloride to re-evaluate the salt wasting for the patient. I am going to send fo r rheumatoid factor to evaluate if the patient had any Fanconi also as patient had proteinuria before . 5.Psychogenic polydipsia, currently patient's altered mental status. We need to keep good IV fluid to avoid worsening her hyponatremia. 6.Hypernatremia secondary to psychogenic polydipsia and prerenal. We will continue hydration. The IV fluid after the boluses going to be D5 half. 7.Acidosis secondary to renal failure and renal tubular acidosis. We will continue hydration. We w ill follow up. 8.Hypernatremia secondary to psychogenic polydipsia. As above, we will change IV fluid to D5 half a fter finishing the boluses. 9.Diabetes as by primary. 10.Hyperparathyroidism secondary to hypomagnesemia. I going to go ahead and check for repeated PTH on the patient. 11.Hypercalcemia. Secondary to supplement. Hold calcitriol. Check for PTH and we will follow up. 12.Hypomagnesemia. We will follow up level, hold on supplement for the time being. RACHELLE/NATE Voice ID: [id number] Report ID: [id number]
--- NOTE | 2019-07-19 18:32 | EKG ---
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
[2019-07-19 18:35] LABS: Albumin 1.9 g/dL (3.4-5.0); Bilirubin Total 0.3 mg/dL (0.2-1.0); Potassium 5.2 mmol/L (3.5-5.1); Protein, Total 8.1 g/dL (6.4-8.2)
--- NOTE | 2019-07-19 19:42 | RAD REPORT ---
EXAM DESCRIPTION: RAD - Chest Single View - 07/19/2019 7:37 pm CLINICAL HISTORY: Device placement PICC line placement . IMPRESSION: PICC line with its tip in the proximal superior vena cava
[2019-07-19] MEDS: D5W 1,000 ML IV SCH (20:30)
[2019-07-19] MEDS ORDERED: METOPROLOL TARTRATE 5 MG/5 ML INJ IV STA ×3 (21:06→22:55)
[2019-07-19] MEDS ORDERED: METOPROLOL TARTRATE 5 MG/5 ML INJ IV ONE ×2 (21:18→22:55)
--- NOTE | 2019-07-19 21:40 | RAD REPORT ---
EXAM DESCRIPTION: US - Pelvis Complete - 07/19/2019 8:57 pm CLINICAL HISTORY: Vaginal bleeding COMPARISON: July 18, 2019 cat scan FINDINGS: The uterus measures 10 x 6 x 6 centimeters. Evaluation is very limited secondary to a combination of body habitus and the bladder not being diste nded . Evaluation of the endometrial stripe is limited. It does not appear to be grossly thickened. Evaluati on for fibroids is very limited. No gross fibroid visualized. Right ovary is normal in size and echotexture. Left ovary was not seen secondary to overlying bowel g as The right and left adnexal unremarkable. No ascites IMPRESSION: Very limited examination does not demonstrate a gross abnormality
--- NOTE | 2019-07-19 21:41 | RAD REPORT ---
EXAM DESCRIPTION: US - Transvaginal Study Probe - 07/19/2019 8:57 pm CLINICAL HISTORY: Vaginal bleeding FINDINGS: Evaluation is nondiagnostic secondary to difficulty with patient positioning and body habi alicia
[2019-07-19 21:46] LABS: Hematocrit 25.9 % (36.0-45.0)
[2019-07-19] MEDS ORDERED: NA CHLORIDE 0.9% 250 ML IV ONE (23:48)
[2019-07-19] MEDS ORDERED: NA CHLORIDE 0.9% 250 ML ONE (23:54)
[2019-07-20] MEDS ORDERED: NA CHLORIDE 0.9% 250 ML IV ONE ×2 (00:04→05:54)
[2019-07-20 06:14] LABS: Protime INR 1.53
[2019-07-20 06:29] LABS: Basophils % 0.2 % (0-1.3); Lymphocytes % 11.6 % (15.3-44.8); MPV 8.8 fL (7.6-11.3)
[2019-07-20] MEDS: D5W 1,000 ML IV SCH ×3 (06:40→20:00)
[2019-07-20 07:28] LABS: Albumin 1.8 g/dL (3.4-5.0); Bilirubin Total 0.3 mg/dL (0.2-1.0); Magnesium 2.3 mg/dL (1.8-2.4); Phosphorus 3.9 mg/dL (2.5-4.9); Potassium 5.1 mmol/L (3.5-5.1)
--- NOTE | 2019-07-20 07:40 | P.PN ---
Date of Service: 07/19/19 Notify the patient blood pressure is 210/120. Get patient Lopressor 5 mg IV push x1 and this was repeated. Patient blood pressure will be monitored closely. I did get a call from the nurses a couple hrs later, and they stated the patient's blood pressure had dropped again. We have given the patient a bolus and will monitor the patient's blood pressure closely. Hold all BP meds and reassess blood pressure throughout the evening.
[2019-07-20] MEDS: CHOLESTYRAMINE/ASP 4 GM/PKT PO SCH ×2 (08:00→16:24)
[2019-07-20] MEDS: GABAPENTIN 300 MG CAP PO SCH (09:00)
[2019-07-20] MEDS ORDERED: AMLODIPINE 10 MG TAB PO SCH (09:00)
[2019-07-20] MEDS: MAGNESIUM OXIDE 400 MG TAB PO SCH (09:00)
--- NOTE | 2019-07-20 10:55 | P.PN ---
Subjective Date of Service: 07/20/19 Chief Complaint: Hyperkalemia; acute kidney injury; anemia; hypoalbuminemia Subjective: Other (Patient more alert today. Some confusion noted.) Physical Examination - Vital Signs Temperature: 98.9 F Blood Pressure: 90/58 Pulse: 99 Respirations: 17 Pulse Ox (%): 100 - Physical Exam General: Alert, Other (Still with confusion) HEENT: Atraumatic Neck: Supple Respiratory: Clear to auscultation bilaterally, Normal air movement Cardiovascular: Normal pulses, Regular rate/rhythm Gastrointestinal: Normal bowel sounds, Soft and benign, Non-distended, No masses, No rebound, No guarding Integumentary: No cyanosis Neurological: Other (Some confusion noted) - Studies Microbiology Data (last 24 hrs): 07/18/19 20:01 Blood - Blood Anaerobic Blood Culture - Final Medications List Reviewed: Yes Assessment & Plan [facility]charge [facility] ([facility] Plan to discharge in: Greater than 2 days Physician Review Additional Text: Impression: Acute on chronic renal failure stage 2 with hyperkalemia Hypotension likely from volume depletion COPD Anemia of chronic disease GERD History of hypertension History of diabetes mellitus type 2 Vaginal bleeding postmenopausal Plan: Acute on chronic renal failure stage 2 with hyperkalemia: Potassium improved. Renal function also improved. Continue with IV fluid hydration. Nephrology to further adjust. Will monitor closely. Will discuss further with nephrology. Will do also discuss with family about plan of care. Patient would benefit with skilled facility at discharge and possibly long-term care. Antibiotics have been discontinued. No evidence of infection. Await blood in urine culture results. Hypotension likely from volume depletion: Patient given IV fluids yesterday. Continue IV fluids. Nephrology to further monitor and adjust. COPD: Will provide medication. Anemia of chronic disease: Will monitor closely. Patient may require transfusion if hemoglobin below 7.5. GERD: Continue medication History of hypertension: Hold blood pressure medication at this time. History of diabetes mellitus type 2: Continue Accu-Cheks. Vaginal bleeding postmenopausal: Will continue to monitor this closely. Will obtain vaginal ultrasound to further evaluate. Monitor hemoglobin. Will discuss with gynecology. This may have to be addressed as an outpatient. Time Spent Managing Pts Care (In Minutes): 55
[2019-07-20] MEDS ORDERED: D5 0.45 NS 500 ML IV SCH (11:00)
--- NOTE | 2019-07-20 11:05 | RAD REPORT ---
EXAM DESCRIPTION: RAD - Chest Single View - 07/20/2019 7:29 am CLINICAL HISTORY: Monitor for pulmonary edema Chest pain. COMPARISON: Chest Single View dated 07/19/2019; Chest Single View dated 07/19/2019; Chest Single View dated 07/18/2019; Abdomen 1 View (KUB) dated 06/23/2019 FINDINGS: Portable technique limits examination quality. Motion degraded study is submitted. A The lungs are grossly clear. Small left pleural effusion. The heart is moderately enlarged with singl e lead pacer/defibrillator device. Right-sided PICC line is unchanged in position. IMPRESSION: Stable chest since 07/19/2019.
--- NOTE | 2019-07-20 11:55 | RAD REPORT ---
EXAM DESCRIPTION: CT - Head Brain Wo Cont - 07/20/2019 11:33 am CLINICAL HISTORY: confusion Headache, drowsiness COMPARISON: Head Brain Wo Cont dated 06/16/2019; HEAD BRAIN W O CONTRAST dated 01/29/2014 TECHNIQUE: All CT scans are performed using dose optimization technique as appropriate and may inclu de automated exposure control or mA/KV adjustment according to patient size. FINDINGS: No intracranial hemorrhage, hydrocephalus or extra-axial fluid collection.No areas of brai n edema or evidence of midline shift. The paranasal sinuses and mastoids are clear. The calvarium is intact. IMPRESSION: No acute intracranial abnormality.
[2019-07-20 12:29] LABS: Hematocrit 24.1 % (36.0-45.0)
[2019-07-20] MEDS: NOREPINEPHRINE 4 MG in D5W 250 ML IV PRN ×2 (13:09→21:08)
--- NOTE | 2019-07-20 13:42 | PN ---
Date of Progress Note: 07/20/2019 History Of Present Illness: Patient was admitted with acute kidney injury, hyperkalemia. Patient stafford s altered mental status. Patient was started on hydration. Hyperkalemia has been resolved. Patient still poorly responsive. Patient had good urine output. Physical Examination: Vital Signs: Blood pressure 94/54, pulse of 96. Earlier yesterday had blood pressure up to 170. Chest: Clear to auscultation. Heart: S1, S2. Regular. Abdomen: Soft, nontender. Extremities: No edema. Neuro: Response to pain stimuli. Patient voluntarily refused to open her eyes. Laboratory Data: WBC 8.5, H and H 7.7/24, platelets 176. Sodium 145, potassium 5.1, bicarb 21, BUN 34, creatinine 1.9, GFR of 30, calcium 9.1, phosphorus 3.9, magnesium 2.3. PTH 108. Current Medications: The patient on include: 1.Ceftriaxone. 2.Cholestyramine. 3.Zofran. 4.D5 half at 20 to 25 per hour. 5.Magnesium oxide. Assessment And Plan: 1.Acute kidney injury secondary to prerenal, secondary to poor intakes on background of psychogenic polydipsia. I am going to continue IV hydration and we will monitor the patient. Continue D5 half. 2.Hypertension. Currently, blood pressure on the lower side. Hold all blood pressure medication. We will put parameter for p.r.n. blood pressure for systolic above 180. 3.Hyperkalemia secondary to renal failure and amiloride. 4.with potassium supplement has been resolved. Continue hydration. 5.Altered mental status, possible secondary to over medication. Discussed with the primary. Kristen barnes current psych medication and Neurontin. 6.Acidosis secondary to renal failure, resolved. 7.Psychogenic polydipsia. Continue IV hydration as patient altered mental status currently. 8.Hyperparathyroidism with presence of hypercalcemia upon admission. Hold calcitriol for the time b eing. We will continue hydration for the time being. 9.Vitamin D deficiency, stable. MA/MODL Voice ID: [id number] Report ID: [id number]
[2019-07-20 14:31] LABS: Thyroid Stimulating Hormone 1.75 uIU/mL (0.360-3.740)
[2019-07-20 20:02] LABS: Hematocrit 24.8 % (36.0-45.0)
[2019-07-20] MEDS ORDERED: METOPROLOL TAR 50 MG TAB PO SCH (21:06)
[2019-07-20] MEDS ORDERED: FUROSEMIDE 20 MG/ 2ML VIAL IV SCH (22:00)
[2019-07-21] MEDS: MORPHINE 2 MG/ML SYR IV PRN ×4 (00:08→21:28)
[2019-07-21] MEDS ORDERED: NA CHLORIDE 0.9% 250 ML ONE (00:32)
[2019-07-21] MEDS: D5W 1,000 ML IV SCH (03:50)
[2019-07-21 05:28] LABS: Absolute Lymphocytes (CBC) 1.3 K/uL (0.7-4.9); Basophils % 0.3 % (0-1.3); Hematocrit 27.5 % (36.0-45.0); Lymphocytes % 14.4 % (15.3-44.8); MPV 8.4 fL (7.6-11.3); RBC Red Blood Cell Count 2.78 M/uL (3.86-4.86)
[2019-07-21 05:40] LABS: Albumin 1.9 g/dL (3.4-5.0); Phosphorus 2.7 mg/dL (2.5-4.9); Potassium 4.3 mmol/L (3.5-5.1)
[2019-07-21] MEDS: CHOLESTYRAMINE/ASP 4 GM/PKT PO SCH ×2 (08:00→18:08)
--- NOTE | 2019-07-21 08:46 | P.PN ---
Subjective Date of Service: 07/21/19 Chief Complaint: Hyperkalemia; acute kidney injury; anemia; hypoalbuminemia Subjective: New changes (Patient noted to have pain, swelling, bruising to the left upper extremity as reported to have been present since last night.) Patient is a little more alert today, seems to be doing well. <Torsten Grant - Last Filed: 07/21/19 08:47> Date of Service: 07/21/19 Patient see and examined with nurse practitioner-Torsten. The patient still on vasopressor. <Rolf Banuelos - Last Filed: 07/21/19 10:50> Review of Systems General: Unremarkable Eyes: Unremarkable ENT: Unremarkable Respiratory: Unremarkable Cardiovascular: Unremarkable Gastrointestinal: Unremarkable Genitourinary: Unremarkable Musculoskeletal: Arm Pain (Left upper extremity) Integumentary: Bruising ( left upper extremity) <Torsten Grant - Last Filed: 07/21/19 08:47> Physical Examination - Vital Signs Temperature: 97.1 F Blood Pressure: 112/73 Pulse: 105 Respirations: 17 Pulse Ox (%): 100 - Physical Exam General: Alert HEENT: Atraumatic, Normocephalic, PERRLA Neck: Supple Respiratory: Clear to auscultation bilaterally Capillary refill: <2 Seconds Gastrointestinal: Normal bowel sounds Musculoskeletal: Swelling, Tenderness (To left upper extremity) Integumentary: Other (Bruising to left upper extremity) - Studies Medications List Reviewed: Yes <Torsten Grant - Last Filed: 07/21/19 08:47> - Physical Exam General: Other (Still some confusion noted.) Integumentary: Other (Bruising to left upper extremity, erythema noted to the left upper extremity) - Studies Microbiology Data (last 24 hrs): 07/18/19 17:45 Catheterized Urine [place] Count - Final >100,000 CFU/ML. 07/18/19 17:45 Catheterized Urine - Final <Rolf Banuelos - Last Filed: 07/21/19 10:50> Assessment & Plan Discharge Plan: LTAC Plan to discharge in: 72 Hours Physician Review Additional Text: Impression: Acute on chronic renal failure stage 2 Hypotension likely from volume depletion COPD Anemia of chronic disease GERD History of hypertension History of diabetes mellitus type 2 Vaginal bleeding postmenopausal Plan: Acute on chronic renal failure stage 2: Potassium improved. Renal function continues to improve. Continue with IV fluid hydration. Nephrology to further adjust. Will monitor closely. Will discuss further with nephrology. Will do also discuss with family about plan of care. Patient would benefit with skilled facility at discharge and possibly long-term care. Hypotension likely from volume depletion, considering early cellulitis to the left upper extremity: Continue IV fluids. Nephrology to further monitor and adjust. Pt with hypotension that is resistant to volume resuscitation. Patient had to have levophed initiated and is currently on a continuous infusion but we are attempting to wean her off. Patient also noted to have some swelling and bruising to the left upper extremity with some redness. Will obtain an ultrasound in addition to a procalcitonin to assess for DVT or signs of systemic infection. Will assess for need of antibiotics based on results of these tests. COPD: Will provide medication. Anemia of chronic disease: Patient received blood transfusion last night for anemia with HGB 8.0, HGB has improved to 9.0. Will continue to monitor. GERD: Continue medication History of hypertension: Hold blood pressure medication at this time. History of diabetes mellitus type 2: Continue Accu-Cheks. Vaginal bleeding postmenopausal: Will continue to monitor this closely. Will obtain vaginal ultrasound to further evaluate. Monitor hemoglobin. Will discuss with gynecology. This may have to be addressed as an outpatient. Time Spent Managing Pts Care (In Minutes): 55 <Torsten Grant - Last Filed: 07/21/19 08:47> Physician Review Additional Text: Acute on chronic renal failure stage 2 complicated with hypotension likely hypovolemic shock requiring vasopressor New left upper extremity DVT likely provoked COPD exacerbation Urine culture showing a fungal infection Anemia of chronic disease requiring blood transfusion with noted postmenopausal bleeding likely from uterine fibroid History of hypertension History of diabetes mellitus type 2 GERD Morbid obesity Plan: Continue as above. Case discussed at length with nephrology. Will start Diflucan for the urine culture showing yeast. Patient now with left upper extremity DVT this is likely provoked. Will start heparin protocol for PE. Will monitor hemoglobin closely as the patient required transfusion already. Continue volume hydration. Wean off vasopressor. Patient may require further IV fluids. Will check ABG to rule out possible heat related to hypotension. Patient with underlying COPD. Will also consult pulmonology for further recommendation. Pro calcitonin negative at this time. This has been repeated 3 times. Will continue to monitor closely. Need to obtain more information from a prior hospital[facility] at [facility] [place] [facility]. <Rolf Banuelos - Last Filed: 07/21/19 10:50>
--- NOTE | 2019-07-21 09:20 | RAD REPORT ---
EXAM DESCRIPTION: US - Renal Ultrasound-Complete - 07/21/2019 8:49 am CLINICAL HISTORY: . Acute renal insufficiency COMPARISON: 2011 FINDINGS: Due to technical difficulties the examination was unable to the dictated until today. The right kidney measures 10 cm with a normal echotexture. The left kidney measures 9 cm with a normal echotexture. Hydronephrosis is not seen. No gross abnormality of bladder IMPRESSION: Unremarkable renal ultrasound.
--- NOTE | 2019-07-21 10:22 | RAD REPORT ---
EXAM DESCRIPTION: US - UPPER EXTREMITY VENOUS UNILATE - 07/21/2019 10:09 am CLINICAL HISTORY: Left arm swelling and pain COMPARISON: None. FINDINGS: Echogenic material consistent with thrombus is present within the left brachial and cephal ic veins. The veins are noncompressible. Left internal jugular vein, left subclavian vein, left axillary vein, left basilic, left ulnar and l eft radial veins demonstrate phasic signal. The veins are compressible. Doppler demonstrates good demi w. . IMPRESSION: Acute thrombus within the left brachial and cephalic veins.
[2019-07-21] MEDS ORDERED: NOREPINEPHRINE 4 MG in D5W 250 ML IV PRN (11:01)
--- NOTE | 2019-07-21 11:17 | P.PN ---
Subjective Date of Service: 07/21/19 Chief Complaint: Hyperkalemia; acute kidney injury; anemia; hypoalbuminemia Subjective Pt admitted with weakness, AMS , was on amiloride and KCL at home had Chris with peak 2.6 , Today lethargic , responsive to tactile stimuli on levophed, will target SBP >100 B/L DVT , will repeat TTE to R/O RV strain UO 15-25 ml/hr will switch IVF to D5NS in review of sodium level general: lethargic, NAD Neck; Supple, No elevated JVD hear: RRR, normal S1,2 no murmur or rub Chest: CTAB, no rales or wheezes Abdomen: Soft , Nt Extremities No edema or ulcer Assessment And Plan: CHRIS due to dehydration resolved US; no hydro Hyperkalmeia resolved will cont to monitor Shock septic? cont levophed will switch fluid to D5NS B/L UE DVT TTE as above to R/O RT ventricular strain plan to start on heparin drip, HX of vaginal bleeding, if cont to bleed will n eed IR SC filter , also pt will need chest + abd CT with contrast when RFT normalize to R/O malignancy Hx of vaginal bleeding will need chest + abd CT with contrast when RFT normalize to R/O malignancy Monitor CBC transfuse to keep Hb> 7.0 Funguria on Diflucan prognosis guarded time spent 45 min Physical Examination - Vital Signs Temperature: 97.1 F Blood Pressure: 92/66 Pulse: 105 Respirations: 16 Pulse Ox (%): 100 - Studies Microbiology Data (last 24 hrs): 07/18/19 17:45 Catheterized Urine [place] Count - Final >100,000 CFU/ML. 07/18/19 17:45 Catheterized Urine - Final Medications List Reviewed: Yes
[2019-07-21] MEDS: D5 0.9 NS 1,000 ML IV SCH (11:34)
[2019-07-21 11:35] LABS: Protime INR 1.42
[2019-07-21 11:46] LABS: Absolute Lymphocytes (CBC) 1.3 K/uL (0.7-4.9); Hematocrit 26.8 % (36.0-45.0); Lymphocytes % 13.1 % (15.3-44.8); RBC Red Blood Cell Count 2.75 M/uL (3.86-4.86)
[2019-07-21 11:52] LABS: BUN Blood Urea Nitrogen 30 mg/dL (7-18); Bicarbonate 18 mmol/L (21-32); Glucose Level 106 mg/dL (74-106); Potassium 4.4 mmol/L (3.5-5.1); Sodium Level 139 mmol/L (136-145); Troponin I < 0.02 ng/mL (0.0-0.045)
[2019-07-21 11:57] LABS: Arterial Blood Carboxyhemoglob 1.6 % (0-1.5); Blood Gas Oxyhemoglobin 94.4 % (94-97); Blood O2 Saturation 96.8 % (92-98.5)
[2019-07-21] MEDS ORDERED: HEPARIN 5000 UNIT/ML 1 ML VIAL IV SCH (12:00)
[2019-07-21] MEDS ORDERED: HEPARIN/D5W 25,000 UNIT/500 ML BAG IV SCH ×2 (12:00→16:00)
--- NOTE | 2019-07-21 12:04 | P.CNS ---
Date of Consult: 07/21/19 Chief Complaint: Shock hyperkalemia History of Present Illness: Patient is 69 years of age not feeling well generalized weakness patient is not cooperative found to be severely hyperkalemia treated for hypokalemia Center here to the ICU patient is now on vasopressors apparently has DVT in her left arm Patient's kidney function is improving oxygenation yesterday was satisfactory she has metabolic acidosis mildly anemic patient's right leg is also very swollen Allergies aspirin Allergy (Mild, Verified 02/03/13 23:31) Hives Penicillins Allergy (Mild, Verified 02/03/13 23:30) Hives ibuprofen Allergy (Verified 06/17/19 04:53) Unknown Home Medications: Albuterol Sulfate [Proair Hfa] 90 mcg IH Q4HR 02/04/13 Metformin HCl [Glucophage*] 500 mg PO BIDWM 02/04/13 Venlafaxine HCl [Effexor XR] 150 mg PO DAILY 02/04/13 Liraglutide [Victoza 2-Walker] 1.8 mg SQ DAILY 01/30/14 Fluticasone/Salmeterol [Advair 500/50 Diskus*] 1 puff IH BID #1 disk 02/02/14 Gabapentin 600 mg PO TID 06/20/19 traMADol HCL [Ultram*] 50 mg PO BIDP PRN 06/20/19 Amiloride HCl 5 mg PO DAILY #30 tablet 06/27/19 Calcitrol [Rocaltrol*] 0.5 mcg PO DAILY #30 cap 06/27/19 Calcium Carbonate [Oscal*] 1,000 mg PO TID #90 tab 06/27/19 Cholestyramine/Asp [Questran Light*] 4 gm PO BIDWM #60 packet 06/27/19 Ciprofloxacin HCl [Cipro 500 MG Tablet] 500 mg PO BID #10 tab 06/27/19 Magnesium Oxide [Mag 0X*] 400 mg PO BID #60 tab 06/27/19 Potassium Chloride [Klor-Con M20] 80 meq PO DAILY #120 tab.er.prt 06/27/19 Simethicone [Mylicon*] 80 mg PO TID #90 tab 06/27/19 Valsartan 40 mg PO DAILY #30 tablet 06/27/19 metroNIDAZOLE [Flagyl] 500 mg PO Q8H #15 tablet 06/27/19 Ondansetron HCl 4 mg PO Q6HP PRN 07/19/19 Potassium Chloride 07/19/19 Thiamine HCl [Vitamin B-1] 100 mg PO DAILY 07/19/19 carvediloL [Carvedilol] 12.5 mg PO BID 07/19/19 - Past Medical/Surgical History Diabetic: Yes -: NIDDM -: asthma -: CHF -: Hyperlipidemia -: COPD -: CHF -: RA -: Anxiety -: claustrophobia -: HTN -: defibrilator -: gallbladder -: partial hysterectomy -: tubal ligation - Family History Mother Medical History: Heart disease, Hypertension, Diabetes Notes: asthma - Social History Smoking Status: Never smoker Alcohol use: No CD- Drugs: No Caffeine use: Yes Review of Systems is unable to be obtained Physical Examination Temp Pulse Resp BP Pulse Ox 97.1 F 105 H 16 92/66 100 07/21/19 11:18 07/21/19 11:18 07/21/19 11:18 07/21/19 11:18 07/21/19 11:18 General: Unresponsive Neck: Supple Respiratory: Clear to auscultation bilaterally Cardiovascular: No edema, Regular rate/rhythm Gastrointestinal: Normal bowel sounds - Problems (1) Hypotension Current Visit: Yes Status: Acute Plan: Patient is 69 years of age nonverbal admitted with weakness not feeling well pat ient was severely hyperkalemia CHI suspect side effect of medications renal function is improving renal ultrasound unremarkable patient has DVT in the left arm patient has a pacemaker chest x-rays clear no fever has a fungal UTI patient is not retaining CO2 as per my prior Consul 12/2013 is a mention of asthma change to Lovenox dose adjusted for renal failure patient is hypotensive I recommend a more IV fluid boluses apparently she had a few L on admission chest x-rays clear oxygen levels are relatively normal she can tolerate more IV fluid boluses niece to be evaluated by OBGYN regarding her vaginal bleeding patient will need to be and anti coagulated for at least 3 months I doubt if this is shock from Um pulmonary hypertension secondary to PE patient's pro calcitonin level was negative there is no evidence of malignancy an abdominal CT scan fibroid uterus echocardiogram is pending Qualifiers: Hypotension type: unspecified hypotension type Qualified Code(s): I95.9 - Hypotension, unspecified (2) Edema of right lower leg Current Visit: Yes Status: Acute Plan: Patient has new onset of for edema for right leg possible DVT I have ordered venous Doppler
[2019-07-21] MEDS: FLUCONAZOLE 100mg IVPB 100 MG/50 ML BAG IV SCH (12:07)
--- NOTE | 2019-07-21 12:29 | RAD REPORT ---
EXAM DESCRIPTION: RAD - Abdomen 1 View (KUB) - 07/21/2019 12:16 pm CLINICAL HISTORY: Device placement Dobhoff tube placement FINDINGS: The entire upper abdomen is not included in the field of view. A Dobhoff tube is not seen on the film. It is recommended that the patient have an x-ray of the ches t for further evaluation
[2019-07-21] MEDS: THIAMINE 200 MG/2 ML INJ IVP SCH (13:02)
--- NOTE | 2019-07-21 14:37 | RAD REPORT ---
EXAM DESCRIPTION: RAD - Abdomen 1 View (KUB) - 07/21/2019 1:47 pm CLINICAL HISTORY: advanced dobhoff Replacement or repositioning of feeding tube COMPARISON: Abdomen 1 View (KUB) dated 07/21/2019; Abdomen 1 View (KUB) dated 06/23/2019; Abdomen 1 Vi ew (KU) dated 06/22/2019; ABDOMEN 1 VIEW KUB dated 01/31/2014 FINDINGS: Imaging was performed of the mid and upper abdomen following replacement or repositioning of feeding tube. Feeding tube is present in the midline and right side of the abdomen. When compared with the CT study, tip of the feeding tube is most likely in the second portion of the duodenum. Prominent bowel pattern matches comparison. IMPRESSION: Feeding tube has been advanced. Tip is in the second portion of the duodenum.
--- NOTE | 2019-07-21 14:44 | ECHO ---
HEIGHT: 5 ft 8 in WEIGHT: 326 lb 0 oz DATE OF STUDY: 07/21/[address]: Rolf Banuelos DO 2-DIMENSIONAL: YES M.MODE: YES DOPPLER: YES COLOR FLOW: YES TDS: YES PORTABLE: YES DEFINITY: BUBBLE STUDY: DIAGNOSIS: EVALUATE FOR CARDIAC STRAIN, HYPOTENSION ETIOLOGY UNKNOWN CARDIAC HISTORY: CATHERIZATION: NO SURGERY: NO PROSTHETIC VALVE: NO PACEMAKER: NO MEASUREMENTS (cm) DIASTOLIC (NORMALS) SYSTOLIC (NORMALS) IVSd 1.1 (0.6-1.2) LA Diam 2.4 (1.9-4.0) LVEF 67% LVIDd 4.0 (3.5-5.7) LVIDs 2.5 (2.0-3.5) %FS 37% LVPWd 1.1 (0.6-1.2) Ao Diam 2.9 (2.0-3.7) 2 DIMENSIONAL ASSESSMENT: RIGHT ATRIUM: NORMAL LEFT ATRIUM: NORMAL RIGHT VENTRICLE: AUTOMATIC INTERNAL CARDIAC DEFIBRILLATOR LEFT VENTRICLE: NORMAL TRICUSPID VALVE: NORMAL MITRAL VALVE: NORMAL PULMONIC VALVE: NORMAL AORTIC VALVE: NORMAL PERICARDIAL EFFUSION: NONE AORTIC ROOT: NORMAL LEFT VENTRICULAR WALL MOTION: NORMAL DOPPLER/COLOR FLOW: MILD TRICUSPID REGURGITATION RIGHT VENTRICULAR SYSTOLIC PRESSURE 47 mmHg. COMMENTS: AUTOMATIC INTERNAL CARDIAC DEFIBRILLATOR IN [place]. MILD TRICUSPID REGURGITATION - MODERATE PULMONARY HYPERTENSION 47 mmHg. NORMAL LEFT VENTRICULAR SIZE AND FUNCTION. TECHNOLOGIST: GREG TALAVERA
[2019-07-21] MEDS: HEPARIN/D5W 25,000 UNIT/500 ML BAG IV PRN (15:54)
--- NOTE | 2019-07-21 16:31 | RAD REPORT ---
EXAM DESCRIPTION: US - Extrem Venous W Compress Александр - 07/21/2019 2:38 pm CLINICAL HISTORY: Rule out DVT right leg swollen COMPARISON: None. TECHNIQUE: Real-time sonographic evaluation of the bilateral lower extremity deep venous system was performed. FINDINGS: Normal compressibility, flow augmentation, phasic flow and spontaneous flow are identified in the left lower extremity common femoral, superficial femoral, popliteal and posterior tibial vein s. No intraluminal filling defects seen. The right common femoral, greater saphenous and popliteal veins show echogenic material within the anjali men. There is no compression these vessels. Doppler evaluation shows no identifiable blood flow. Righ t posterior tibial vein could not be visualized. Preliminary positive findings were provided to the ICU at the time of the study. IMPRESSION: Acute deep venous thrombosis involving the common femoral and popliteal deep veins of th e right lower extremity. Right leg greater saphenous vein thrombus is also present. No DVT in the left leg.
[2019-07-21 18:25] LABS: Rheumatoid Factor NEG (NEG)
[2019-07-21] MEDS: NEPRO 1,000 ML BOT FT SCH (19:32)
[2019-07-22 00:03] LABS: Barbiturates NEGATIVE (NEGATIVE); Benzodiazepines NEGATIVE (NEGATIVE); Cocaine NEGATIVE (NEGATIVE); METHAMPHETAM NEGATIVE (NEGATIVE); Methadone NEGATIVE (NEGATIVE); Opiates NEGATIVE (NEGATIVE); Phencyclidine NEGATIVE (NEGATIVE); THC Cannibis NEGATIVE (NEGATIVE)
[2019-07-22] MEDS: D5 0.9 NS 1,000 ML IV SCH (00:48)
[2019-07-22] MEDS: MORPHINE 2 MG/ML SYR IV PRN ×2 (04:10→14:33)
[2019-07-22] MEDS ORDERED: NOREPINEPHRINE 4 MG/4 ML VIAL ONE (05:12)
[2019-07-22] MEDS ORDERED: D5W 250 ML IV ONE (05:13)
[2019-07-22 05:43] LABS: Albumin 1.8 g/dL (3.4-5.0); Phosphorus 2.5 mg/dL (2.5-4.9); Potassium 4.1 mmol/L (3.5-5.1)
[2019-07-22 05:46] LABS: Absolute Lymphocytes (CBC) 1.1 K/uL (0.7-4.9); Basophils % 0.5 % (0-1.3); Hematocrit 26.3 % (36.0-45.0); Lymphocytes % 13.2 % (15.3-44.8); MPV 8.6 fL (7.6-11.3); RBC Red Blood Cell Count 2.68 M/uL (3.86-4.86)
[2019-07-22] MEDS: HEPARIN/D5W 25,000 UNIT/500 ML BAG IV PRN (07:10)
[2019-07-22] MEDS: CHOLESTYRAMINE/ASP 4 GM/PKT PO SCH ×2 (09:00→18:35)
[2019-07-22] MEDS: THIAMINE 200 MG/2 ML INJ IVP SCH (09:01)
--- NOTE | 2019-07-22 10:20 | P.PN ---
Subjective Date of Service: 07/22/19 Chief Complaint: Shock hyperkalemia Patient slightly more alert today. Still with increased fatigue. Vaginal bleeding stable and little noted. Physical Examination - Vital Signs Temperature: 98.4 F Blood Pressure: 120/69 Pulse: 112 Respirations: 17 Pulse Ox (%): 100 - Physical Exam General: Other (Still confusion but more alert.) HEENT: Atraumatic Neck: Supple Respiratory: Clear to auscultation bilaterally, Normal air movement Cardiovascular: Normal pulses, Regular rate/rhythm Gastrointestinal: Normal bowel sounds, No tenderness, No masses Integumentary: Other (Erythema, swelling to the left upper extremity and right lower extremity.) - Studies Microbiology Data (last 24 hrs): 07/18/19 17:45 Catheterized Urine [place] Count - Final >100,000 CFU/ML. 07/18/19 17:45 Catheterized Urine - Final Medications List Reviewed: Yes Assessment & Plan Discharge Plan: Other (retirement facility) Plan to discharge in: Greater than 2 days Physician Review Additional Text: Impression: Acute on chronic renal failure stage 2 complicated with hypotension likely hypovolemic shock requiring vasopressor suspect autoimmune disease New left upper extremity and right lower extremity DVT likely provoked History of ventricular tachycardia with noted ventricular tachycardia at this time with pacemaker/defibrillator in place Metabolic encephalopathy likely related to above Postmenopausal Vaginal bleeding COPD exacerbation Urine culture showing a fungal infection Anemia of chronic disease requiring blood transfusion with noted postmenopausal bleeding likely from uterine fibroid History of hypertension History of diabetes mellitus type 2 GERD Morbid obesity Plan: Acute on chronic renal failure stage 2 complicated with hypotension likely hypovolemic shock requiring vasopressor suspect autoimmune disease: Renal function continues to improve. Continue IV fluids. No indication of sepsis at this time. Likely hypovolemic shot related to volume depletion. Inflammatory markers elevated. Suspect autoimmune process. Lab for hypercoag ulable/autoimmune/hepatitis/HIV obtained. Will discuss with nephrology, pulmonology and Cardiology. Consider steroid treatment. Patient on heparin at this time for DVTs. Patient can be switched to oral Eliquis once hemoglobin stable and if she tolerates heparin. Continue monitor closely. New left upper extremity and right lower extremity DVT likely provoked: Patient now on heparin drip. Will continue to monitor hemoglobin closely. Patient has received 1 unit of blood. If stable and tolerates heparin then can transition to oral medication. Patient will likely require 3 months of treatment. Lab pending for hypercoagulable and autoimmune worker. History of ventricular tachycardia with noted ventricular tachycardia at this time with pacemaker/defibrillator in place: Pacemaker was interrogated. Patient had V-tach but pace. No discharge of defibrillator. Continue to monitor closely. Case discussed with cardiology. Echo unremarkable. Patient has a history of ventricular tachycardia with prior normal heart catheterization. Patient with pacemaker defibrillator. Metabolic encephalopathy likely related to above: This has improved with hydration. Continue as above. CT scan unremarkable. Will monitor closely. Continue workup Postmenopausal Vaginal bleeding: Continue monitor closely. Patient received blood. Will need to monitor hemoglobin. May require further transfusion. Case discussed with gynecology yesterday. Once patient more stable obtain CT abdomen with contrast. Prior contrast showed no adnexal mass therefore it gynecology suspects no underlying uterine cancer. Will monitor closely. COPD exacerbation: This has remained stable. Continue with medication. Urine culture showing a fungal infection: Patient now on Diflucan Anemia of chronic disease requiring blood transfusion with noted postmenopausal bleeding likely from uterine fibroid: Patient has received 1 unit of blood. Continue to monitor hemoglobin. History of hypertension: Blood medication on hold History of diabetes mellitus type 2: Continue Accu-Cheks and sliding scale. GERD: Continue medication. Morbid obesity: Overall stable. Will monitor closely. Time Spent Managing Pts Care (In Minutes): 55
[2019-07-22] MEDS ORDERED: D50W 25 GM/50 ML SYRINGE/VIAL IV PRN (10:21)
[2019-07-22] MEDS ORDERED: GLUCAGON 1 MG/VIAL IM PRN (10:21)
[2019-07-22] MEDS ORDERED: Pharmacy Consult 1 EA XX PRN (10:55)
--- NOTE | 2019-07-22 10:59 | P.PN ---
Subjective Date of Service: 07/22/19 Chief Complaint: Altered mental status shock No change patient is still unresponsive discuss with daughter this change in mental status is pneumo patient has DVTs of lower extremity an arms Review of Systems is unable to be obtained Physical Examination - Vital Signs Temperature: 98.4 F Blood Pressure: 106/59 Pulse: 110 Respirations: 17 Pulse Ox (%): 100 - Physical Exam General: Alert, Unresponsive Respiratory: Clear to auscultation bilaterally Cardiovascular: Regular rate/rhythm, Edema (Right leg is significantly so) Gastrointestinal: Normal bowel sounds, Soft and benign - Studies Microbiology Data (last 24 hrs): 07/18/19 17:45 Catheterized Urine [place] Count - Final >100,000 CFU/ML. 07/18/19 17:45 Catheterized Urine - Final Medications List Reviewed: Yes Assessment & Plan - Problems (Diagnosis) (1) Hypotension Current Visit: Yes Status: Acute Plan: Reason for hypertension is not apparent the inflammatory markers elevated pro calcitonin level is negative possible underlying sepsis cortisol level is normal tsh level is also normal start on broad-spectrum antibiotics repeat blood cultures no evidence of pulmonary hypertension normal ejection fraction labs reviewed recommend IV fluid boluses for now wean off the Levophed Qualifiers: Hypotension type: unspecified hypotension type Qualified Code(s): I95.9 - Hypotension, unspecified (2) Edema of right lower leg Current Visit: Yes Status: Acute Plan: P continue with heparin for now she has extensive DVT of the right leg is all (3) Altered mental status Current Visit: Yes Status: Acute Plan: Patient's mental status is altered apparently this is new as per daughter recommend lumbar puncture patient's oxygenation is satisfactory
[2019-07-22] MEDS: FLUCONAZOLE 100mg IVPB 100 MG/50 ML BAG IV SCH (11:00)
[2019-07-22] MEDS ORDERED: Ringers Lactate 1,000 ML IV ONE (11:13)
[2019-07-22] MEDS ORDERED: INSULIN -REGULAR HUMAN 50 UNIT/0.5 ML ML SQ SCH (11:30)
[2019-07-22] MEDS: CEFTRIAXONE/SWI 1gm 1 GM/10 ML SYR IVP SCH ×2 (11:51→20:42)
[2019-07-22] MEDS: Ringers Lactate 1,000 ML IV SCH ×2 (11:57→21:00)
[2019-07-22] MEDS: FAMOTIDINE 20 MG/2 ML VIAL IV SCH ×2 (11:57→20:42)
[2019-07-22] MEDS ORDERED: VANCOMYCIN 3 GM in NA CHLORIDE 0.9% 500 ML IVPB ONE (12:00)
[2019-07-22] MEDS: INSULIN -REGULAR HUMAN 50 UNIT/0.5 ML ML SQ SCH ×3 (12:00→23:58)
--- NOTE | 2019-07-22 12:12 | CON ---
Date of Consultation: 07/21/[address] Banuelos on 07/18/2019. The patient was seen on 07/21/2019. Reason For Consultation: Ventricular tachycardia. History Of Present Illness: Ms. Harp is a 69-year-old black woman with multiple medical issues. S he has morbid obesity. She has a history of ventricular tachycardia, normal coronaries, status post AICD, normal ejection fraction. She has a history of diabetes, COPD, rheumatoid arthritis, anxiety a nd panic disorders, as well as hypertension. She was admitted with dehydration, nausea and weakness, acute kidney injury. While she was being treated, she had an episode of ventricular tachycardia req uiring an AICD shock. The ICD investigation confirmed ventricular tachycardia. The patient has not had anymore ventricular tachycardia since. She denied syncope. Denied any chest pain. Denied any p alpitation. Denied any PND, orthopnea, pedal edema. She denied any fever or chills. While she was in the hospital, she was noted to have vaginal bleed, fungal UTI. She also had a DVT in her left bra chiocephalic vein. She is now on heparin. She remains hypotensive on Levophed. Past Medical History: As stated above. Allergies: SHE IS ALLERGIC TO ASPIRIN, PENICILLIN, AND MOTRIN. Review of Systems: Negative. Social History: Negative. Family History: Noncontributory. Medications: Include inhaler, amiloride, metformin, Victoza, Neurontin, valsartan, Effexor, and Core g. Physical Examination: Vital Signs: Stable. She was in a sinus rhythm with occasional PACs. She was afebrile. She weighe d 326 pounds. Her blood pressure was 100/60, heart rate was 100, her PO2 was 85, pCO2 of 30, and a p H of 7.38. HEENT: Negative. Neck: Supple without any bruit, lymphadenopathy, JVD, or thyromegaly. RESPIRATORY: Her chest was clear to auscultation, percussion. Cardiac Exam: Revealed a regular rhyt hm and rate without any murmurs, gallops, or rubs. Abdomen: Obese, but benign. Extremities: Revealed no clubbing, cyanosis. She had 1+ edema on the left side. Right lower extrem ity was swollen with about 3+ edema. Pulses were weak in the dorsalis pedis and posterior tibial dis tally. Skin: Dry and intact. Neurological: She was slightly obtunded. Diagnostic Data: EKG was negative. A catheterization in 2011 was negative. Echocardiogram in 2019 was negative. She had a negative chest x-ray, negative CT of her head. She has a fungal UTI. She h as a positive thrombus in the left greater cephalic vein by ultrasound. Renal ultrasound was negativ e. Renal Dopplers pending. Echocardiogram was normal. Creatinine was 2.03. Hemoglobin was 7.7, pot assium was 4.4, magnesium is 2.0. Cortisol level is normal. Impression And Plan: 1.Ventricular tachycardia status post automatic implantable cardioverter defibrillator shock. The p atient has a normal ejection fraction. She has a defibrillator that is working appropriately by inve stigation. She has normal coronaries. Normal echocardiogram. She had a defibrillator back in 2011 because of ventricular tachycardia of unknown etiology. It is of interest that at home she does not take beta norma or antiarrhythmic. I think when she does go home, we should switch her amiloride t o beta-norma. She can continue her valsartan. I will switch from Coreg to metoprolol at home. 2.Altered mental status secondary to fungal urinary tract infection, dehydration, and acute kidney i njury. 3.Acute on chronic renal failure. 4.Diabetes. 5.Chronic obstructive pulmonary disease. 6.Rheumatoid arthritis. 7.Anxiety and panic disorder. 8.Hypertension, complicated by hypotension, on Levophed now. 9.New-onset deep vein thrombosis in the left brachiocephalic vein. She is on heparin. 10.Fungal urinary tract infection. 11.Vaginal bleed. 12.I will continue her present regimen for now with inhalers, Levophed, heparin, fluids, insulin, an tifungal medicine. A venous Doppler of her legs on the right side is pending. We will continue to f dorothy her. KIRA/NATE Voice ID: [id number] Report ID: [id number]
--- NOTE | 2019-07-22 13:00 | PN ---
Date of Progress Note: 07/22/2019 Ms. Harp was admitted with multiple medical problems including acute kidney injury, dehydration, fu ngal UTI, DVT in the left brachiocephalic vein, had an episode of ventricular tachycardia which was s hot with the ICD. The ICD investigation did confirm the ventricular tachycardia. She does take Core g at home which should be switched to metoprolol when she goes home. She is on heparin for her DVT. Her diabetes and COPD are well controlled. Echocardiogram was normal. She remained hypotensive wit h blood pressure of 92/60 on Levophed. I think a workup for autoimmune disease other than her rheuma toid arthritis should be in order. Her cortisol was normal. The case was discussed with Dr. Banuelos. From a cardiac standpoint, she apparently had a ventricular tachycardia. Her potassium, magnesium are stable. We will continue to follow her. KIRA/NATE Voice ID: [id number] Report ID: [id number]
[2019-07-22 17:28] LABS: Hematocrit 25.5 % (36.0-45.0)
[2019-07-22] MEDS: NEPRO 1,000 ML BOT FT SCH (23:59)
[2019-07-23] LABS: Hematocrit 24.8 % (36.0-45.0)
[2019-07-23] MEDS: Ringers Lactate 1,000 ML IV SCH ×2 (01:28→18:04)
[2019-07-23 02:18] LABS: Albumin, (SPE) 1.9 g/dL (3.8-4.8); Alpha-1-Globulins 0.5 g/dL (0.2-0.3); Gamma Globulins 2.3 g/dL (0.8-1.7); INTERPRETATION REPORT
[2019-07-23] MEDS: HEPARIN/D5W 25,000 UNIT/500 ML BAG IV PRN ×2 (02:51→20:50)
[2019-07-23] MEDS ORDERED: NA CHLORIDE 0.9% 250 ML ONE (02:59)
[2019-07-23] MEDS: MORPHINE 2 MG/ML SYR IV PRN (04:50)
[2019-07-23] MEDS: INSULIN -REGULAR HUMAN 50 UNIT/0.5 ML ML SQ SCH ×3 (06:00→17:31)
[2019-07-23 06:41] LABS: Absolute Lymphocytes (CBC) 1.1 K/uL (0.7-4.9); Basophils % 0.6 % (0-1.3); Hematocrit 27.3 % (36.0-45.0); Lymphocytes % 11.4 % (15.3-44.8); MPV 8.6 fL (7.6-11.3); RBC Red Blood Cell Count 2.79 M/uL (3.86-4.86)
[2019-07-23 06:48] LABS: Albumin 1.6 g/dL (3.4-5.0); Phosphorus 2.2 mg/dL (2.5-4.9); Potassium 3.9 mmol/L (3.5-5.1)
[2019-07-23] MEDS: CEFTRIAXONE/SWI 1gm 1 GM/10 ML SYR IVP SCH ×2 (09:00→20:33)
[2019-07-23] MEDS: THIAMINE 200 MG/2 ML INJ IVP SCH (09:21)
[2019-07-23] MEDS: CHOLESTYRAMINE/ASP 4 GM/PKT PO SCH ×2 (09:21→17:12)
[2019-07-23] MEDS: FAMOTIDINE 20 MG/2 ML VIAL IV SCH ×2 (09:21→20:33)
--- NOTE | 2019-07-23 09:57 | PN ---
Date of Progress Note: 07/23/2019 Ms. Harp remains in the ICU. She is not intubated. Has multiple medical problems including DVT, C OPD, rheumatoid arthritis, ventricular tachycardia, has an AICD in place. She is off Levophed now. Her mental status is slightly improved. She has just remained confused. She is more talkative today . She is on heparin for her DVT. She has been seen by Dr. Garcia, who suspect sepsis. She is now on broad-spectrum antibiotics. She has not had any further ventricular tachycardia. Her last creat inine is 1.46, hemoglobin of 8. She is in sinus rhythm. Her last blood pressure was 116/70. Echoca rdiogram which was done last week showed normal ejection fraction with right ventricular systolic pre ssure of 47 mmHg. We will continue to follow her. No change in treatment at this point. KRIA/NATE Voice ID: [id number] Report ID: [id number]
[2019-07-23] MEDS ORDERED: Ringers Lactate 1,000 ML IV ONE (11:09)
[2019-07-23] MEDS: FLUCONAZOLE 100mg IVPB 100 MG/50 ML BAG IV SCH (11:20)
--- NOTE | 2019-07-23 11:52 | P.PN ---
Subjective Date of Service: 07/23/19 Primary Care Provider: Unknown Chief Complaint: Altered mental status shock Subjective: Other (Patient more alert today but still confused) Physical Examination - Vital Signs Temperature: 99 F Blood Pressure: 111/51 Pulse: 106 Respirations: 22 Pulse Ox (%): 95 - Physical Exam General: Other (More alert today but confused) Neck: Supple Respiratory: Clear to auscultation bilaterally, Normal air movement Cardiovascular: Normal pulses, Regular rate/rhythm Gastrointestinal: Normal bowel sounds, Soft and benign, Non-distended Integumentary: Other (Edema to the right lower extremity and left upper extremity noted) Neurological: Other (As above) - Studies Medications List Reviewed: Yes Assessment & Plan Discharge Plan: Home Plan to discharge in: Greater than 2 days Physician Review Additional Text: Impression: Acute on chronic renal failure stage 2 complicated with hypotension likely hypovolemic shock requiring vasopressor suspect autoimmune disease New left upper extremity and right lower extremity DVT likely provoked History of ventricular tachycardia with noted ventricular tachycardia at this time with pacemaker/defibrillator in place Metabolic encephalopathy likely related to above Postmenopausal Vaginal bleeding COPD exacerbation Urine culture showing a fungal infection Anemia of chronic disease requiring blood transfusion with noted postmenopausal bleeding likely from uterine fibroid History of hypertension History of diabetes mellitus type 2 GERD Morbid obesity Plan: Acute on chronic renal failure stage 2 complicated with hypotension likely hypovolemic shock requiring vasopressor suspect autoimmune disease: Spoke with pulmonology yesterday. Pulmonology suspects possible sepsis. Broad-spectrum antibiotic therapy initiated. Continue current medication. Patient slightly hypotensive will provide more fluid boluses. If required patient will be restarted on Levophed. Pulmonology recommends radiology assisted lumbar tap to further evaluate her encephalopathy. Lab for hypercoagulable/autoimmune/hepatitis/HIV obtained. Will discuss further with nephrology, pulmonology and Cardiology. Patient on heparin at this time for DVTs. She seems to be tolerating this. Patient can be switched to oral Eliquis once hemoglobin stable and if she tolerates heparin. Continue monitor closely. New left upper extremity and right lower extremity DVT likely provoked: Patient now on heparin drip. Will continue to monitor hemoglobin closely. Patient has received 1 unit of blood bowl will get another unit of blood today. If stable and tolerates heparin then can transition to oral medication. Patient will likely require 3 months of treatment. Lab pending for hypercoagulable and autoimmune worker. History of ventricular tachycardia with noted ventricular tachycardia at this time with pacemaker/defibrillator in place: Pacemaker was interrogated. Patient had V-tach but pace. No discharge of defibrillator. Continue to monitor closely. Case discussed with cardiology. Echo unremarkable. Patient has a history of ventricular tachycardia with prior normal heart catheterization. Patient with pacemaker defibrillator. Metabolic encephalopathy likely related to above: This has improved with hydration. Continue above workup. Pulmonology suspects possible sepsis. Now on broad-spectrum antibiotic. Pulmonology will order lumbar tap. Postmenopausal Vaginal bleeding: Continue monitor closely. Patient received blood. Will need to monitor hemoglobin. May require further transfusion. Case discussed with gynecology yesterday. Once patient more stable obtain CT abdomen with contrast. Prior contrast showed no adnexal mass therefore it gynecology suspects no underlying uterine cancer. Will monitor closely. COPD exacerbation: This has remained stable. Continue with medication. Urine culture showing a fungal infection: Patient now on Diflucan Anemia of chronic disease requiring blood transfusion with noted postmenopausal bleeding likely from uterine fibroid: Patient has received 1 unit of blood. Continue to monitor hemoglobin. History of hypertension: Blood medication on hold History of diabetes mellitus type 2: Continue Accu-Cheks and sliding scale. GERD: Continue medication. Morbid obesity: Overall stable. Will monitor closely. Time Spent Managing Pts Care (In Minutes): 55
[2019-07-23 13:34] LABS: Hematocrit 25.2 % (36.0-45.0)
--- NOTE | 2019-07-23 15:40 | P.PN ---
Subjective Date of Service: 07/26/19 Primary Care Provider: Unknown Chief Complaint: Altered mental status Patient is more responsive today still altered hemodynamically stable Review of Systems is unable to be obtained Physical Examination - Vital Signs Temperature: 98.4 F Blood Pressure: 91/50 Pulse: 109 Respirations: 17 Pulse Ox (%): 100 - Physical Exam General: Alert, Other (Intimately responsive) Neck: Supple Respiratory: Clear to auscultation bilaterally Cardiovascular: No edema, Regular rate/rhythm Gastrointestinal: Normal bowel sounds, Soft and benign - Studies Medications List Reviewed: Yes Assessment & Plan - Problems (Diagnosis) (1) Hypotension Status: Acute Plan: Patient's renal function has improved she still little hypotensive inflammatory markers were elevated schedule for a lumbar puncture tomorrow Qualifiers: Hypotension type: unspecified hypotension type Qualified Code(s): I95.9 - Hypotension, unspecified (2) Altered mental status Status: Acute Plan: Patient's mental status is altered apparently this is new as per daughter recommend lumbar puncture patient's oxygenation is satisfactory (3) Deep venous thrombosis Status: Acute Plan: Patient has DVT of the right leg in the left arm continue with IV heparin until after the lumbar puncture heparin will be held for 4 hr before the procedure CT of the abdomen and pelvis was negative for was done without contrast in our exclude an occult cancer patient will need lifelong anticoagulation Qualifiers: DVT location: lower extremity
[2019-07-23] MEDS: MORPHINE 4 MG/ML SYR IV PRN (17:05)
[2019-07-23] MEDS: NEPRO 1,000 ML BOT FT SCH (20:34)
--- NOTE | 2019-07-23 21:03 | PN ---
Date of Progress Note: 07/23/2019 Chief Complaint: Acute kidney injury. Patient has nonoliguric urine output. She developed acute kidney injury. Creatinine level equals 2.6. She is in ICU, on pressors. She was on amiloride at home and potassium chloride. She was admitted to the hospital with weakness and altered mental status. Patient is lethargic and responsive to tactile stimuli, on Levophed, target systolic blood pressure over 100. ROS: no fever, no chest pain Physical Examination: Lungs: Diminished breath sounds. No wheezes, no rales. Heart: S1, S2. No pericardial friction, rub. Abdomen: No edema, no ulcers. Impression And Plan: 1. Acute kidney injury due to volume depletion. Patient is currently on pressure to prevent prerenal azotemia. Ultrasound did not show obstructive uropathy. There is no hydronephrosis. 2. Hyperkalemia, resolved. Plan is to monitor electrolytes. 3. Shock, patient on pressor followups. Patient will continue D5 normal saline. Recommend thiamine. Patient is undergoing treatment with pressor and blood pressure currently at target range. KLAUDIA/NATE Voice ID: [id number] Report ID: [id number] ROMEO
--- NOTE | 2019-07-23 21:27 | PN ---
CC: acute on chronic kidney injury HPI: acute kidney injury, nonoliguric associated with renal hypoperfusion and nonoliguric acute kidney injury. Review of Systems: unobtainable due to patient's condition Physical Examination: Lungs: Clear to auscultation bilaterally. Heart: S1, S2. Abdomen: Soft and no edema. Impression And Plan: 1. Acute on chronic kidney injury. Monitor electrolytes. Renal function remains stable range. There is anemia of mild degree. Patient may require blood transfusion, monitor and adjust treatment accordingly. 2. Chronic kidney disease, benign nephrosclerosis. Overall, creatinine level has improved from 2.6 to 1.14. Continue current treatment with pressors and plan is to wean pressors as tolerated. EB/MODL Voice ID: [id number] Report ID: [id number] MTDD
[2019-07-24] MEDS: MORPHINE 4 MG/ML SYR IV PRN ×2 (02:15→15:18)
[2019-07-24 05:33] LABS: Absolute Lymphocytes (CBC) 1.5 K/uL (0.7-4.9); Basophils % 0.4 % (0-1.3); Hematocrit 26.2 % (36.0-45.0); Lymphocytes % 14.9 % (15.3-44.8); MPV 9.1 fL (7.6-11.3); RBC Red Blood Cell Count 2.69 M/uL (3.86-4.86)
[2019-07-24 05:43] LABS: Albumin 1.6 g/dL (3.4-5.0); Magnesium 1.8 mg/dL (1.8-2.4); Phosphorus 3.8 mg/dL (2.5-4.9); Potassium 3.9 mmol/L (3.5-5.1)
[2019-07-24] MEDS: INSULIN -REGULAR HUMAN 50 UNIT/0.5 ML ML SQ SCH ×4 (06:00→17:52)
[2019-07-24] MEDS: Ringers Lactate 1,000 ML IV SCH (06:05)
[2019-07-24] MEDS: CHOLESTYRAMINE/ASP 4 GM/PKT PO SCH ×2 (08:00→17:28)
[2019-07-24] MEDS: FAMOTIDINE 20 MG/2 ML VIAL IV SCH ×2 (08:11→20:31)
[2019-07-24] MEDS: THIAMINE 200 MG/2 ML INJ IVP SCH (08:11)
[2019-07-24] MEDS: CEFTRIAXONE/SWI 1gm 1 GM/10 ML SYR IVP SCH ×2 (08:12→20:32)
[2019-07-24] MEDS ORDERED: VITAL HP 1,000 ML BOT RTH SCH (11:00)
[2019-07-24] MEDS: FLUCONAZOLE 100mg IVPB 100 MG/50 ML BAG IV SCH (11:33)
--- NOTE | 2019-07-24 11:54 | P.PN ---
Subjective Date of Service: 07/24/19 Primary Care Provider: Unknown Chief Complaint: Altered mental status Subjective: No new changes, No C/O voiced (c/o), C/O voiced (c/o of abdominal pain) Physical Examination - Vital Signs Temperature: 97.1 F Blood Pressure: 103/63 Pulse: 105 Respirations: 19 Pulse Ox (%): 100 - Physical Exam General: Alert, In no apparent distress, Oriented x3 HEENT: Atraumatic, Normocephalic, PERRLA Neck: Supple, 2+ carotid pulse no bruit, JVD not distended Respiratory: Clear to auscultation bilaterally, Normal air movement, Diminished Cardiovascular: Normal pulses, Regular rate/rhythm, Normal S1 S2 Gastrointestinal: Normal bowel sounds, Hypoactive, Soft and benign Musculoskeletal: No clubbing, No swelling Integumentary: No rashes, No breakdown, No significant lesion Neurological: Normal speech, Normal strength at 5/5 x4 extr External genitalia: No edema, No lesions - Studies Microbiology Data (last 24 hrs): 07/18/19 20:01 Blood - Blood Aerobic Blood Culture - Final No growth in 5 days. 07/18/19 20:01 Blood - Blood Anaerobic Blood Culture - Final Medications List Reviewed: Yes Assessment And Plan - Current Problems (Diagnosis) (1) Acute kidney injury Current Visit: Yes Status: Acute (2) Altered mental status Current Visit: Yes Status: Acute (3) Deep venous thrombosis Current Visit: Yes Status: Acute Qualifiers: DVT location: lower extremity (4) Edema of right lower leg Current Visit: Yes Status: Acute (5) Hyperkalemia Current Visit: Yes Status: Acute (6) Hypotension Current Visit: Yes Status: Acute Qualifiers: Hypotension type: unspecified hypotension type Qualified Code(s): I95.9 - Hypotension, unspecified (7) Acute renal failure Current Visit: No Status: Acute Physician Review: Patient Assessed, Agree with Above Assessment and Plan Physician Review Additional Text: Impression: -Abdominal pain-likely temporary, will monitor -left upper extremity/right lower extremity DVT-on anticoagulation -metabolic encephalopathy-possibly due to sepsis-improved -acute kidney injury-resolving -history of V-tach-AICD -hypertension -diabetes mellitus-on insulin sliding scale -GERD -fungal UTI-on Diflucan -COPD exacerbation -Anemia of acute illness/blood loss Postmenopausal vaginal bleeding-status post PRBC Plan: - Metabolic encephalopathy-follow plan for lumbar tap today-appears to be improving -continue heparin drip for now, we need switch to Eliquis after LP for the next 3 months -continued monitor H and H giving postmenopausal vaginal bleed -will transfer to floor after LP if still stable
--- NOTE | 2019-07-24 12:12 | P.PN ---
Subjective Date of Service: 07/26/19 Primary Care Provider: Unknown Chief Complaint: Altered mental status No change intermittently responsive moaning and groaning cultures are so far negative Review of Systems is unable to be obtained Physical Examination - Vital Signs Temperature: 97.1 F Blood Pressure: 103/63 Pulse: 105 Respirations: 19 Pulse Ox (%): 100 - Physical Exam General: Delirious, Unresponsive Respiratory: Clear to auscultation bilaterally Cardiovascular: Edema (Still has edema of the right leg) - Studies Microbiology Data (last 24 hrs): 07/18/19 20:01 Blood - Blood Aerobic Blood Culture - Final No growth in 5 days. 07/18/19 20:01 Blood - Blood Anaerobic Blood Culture - Final Medications List Reviewed: Yes Assessment & Plan - Problems (Diagnosis) (1) Altered mental status Status: Acute Plan: Patient still has altered mental status Consul neurology scheduled for a lumbar puncture hemodynamically stable Dc IV fluids continue with tube feeds (2) Deep venous thrombosis Status: Acute Plan: Extensive DVT continue with IV heparin Qualifiers: DVT location: lower extremity Physician Review: Patient Assessed, Agree with Above Assessment and Plan
[2019-07-24] MEDS ORDERED: D5W 1,000 ML IV SCH (20:00)
[2019-07-24] MEDS: HEPARIN/D5W 25,000 UNIT/500 ML BAG IV PRN (22:21)
--- NOTE | 2019-07-24 23:11 | PN ---
Date of Progress Note: 07/24/2019 Ms. Harp is . She has normal coronaries. She is status post AICD. She continued to hav e altered mental status DVT and COPD. Her mental status has not changed much. Her vital signs are stable. She is off Levophed, on antibiotics. She remains in sinus rhythm. Her O2 saturat ion on room is 100%. Her last hemoglobin is 8.4 . I agree with her present regimen. No f urther cardiac recommendations at this point. Her AICD has been checked and it works appropriately. She had normal ejection fraction. We will continue to follow her. KIRA/NATE Voice ID: [id number] Report ID: [id number]
--- NOTE | 2019-07-24 23:35 | PN ---
Date of Progress Note: 07/24/2019 Chief Complaint: Acute on chronic kidney injury. History: Patient has nonoliguric urine function. Renal function is gradually stabilizing. Review of Systems: Denies new complaints. Physical Examination: Lungs: Clear to auscultation bilaterally. Heart: S1, S2. Abdomen: Soft. Extremities: No edema. Impression: 1. Acute on chronic kidney injury. Monitor electrolytes. Renal function remains in stable range. There is mild degree of prerenal azotemia. Avoid nephrotoxic medication. 2. Chronic kidney disease due to benign nephrosclerosis. Overall, patient is recovering from acute kidney injury. Creatinine level is improving from 2.6 to 1.14. Continue treatment and monitor fluid balance. EB/MODL Voice ID: [id number] Report ID: [id number] MTDIlia
[2019-07-25] MEDS ORDERED: HALOPERIDOL LACT 5 MG/ML INJ IV ONE (02:50)
[2019-07-25 04:58] LABS: Absolute Lymphocytes (CBC) 1.4 K/uL (0.7-4.9); Hematocrit 25.1 % (36.0-45.0); Lymphocytes % 13.4 % (15.3-44.8); MPV 8.8 fL (7.6-11.3); RBC Red Blood Cell Count 2.58 M/uL (3.86-4.86)
[2019-07-25 05:08] LABS: Albumin 1.6 g/dL (3.4-5.0); Bilirubin Total 0.4 mg/dL (0.2-1.0); Magnesium 1.9 mg/dL (1.8-2.4); Potassium 3.7 mmol/L (3.5-5.1); Protein, Total 8.1 g/dL (6.4-8.2)
[2019-07-25] MEDS: MORPHINE 4 MG/ML SYR IV PRN ×2 (05:48→17:49)
[2019-07-25] MEDS: INSULIN -REGULAR HUMAN 50 UNIT/0.5 ML ML SQ SCH ×3 (06:00→12:00)
[2019-07-25] MEDS: CHOLESTYRAMINE/ASP 4 GM/PKT PO SCH ×2 (08:00→16:34)
[2019-07-25] MEDS ORDERED: MAGNESIUM SULFATE 1 gm IVPB 1 GM/100 ML BAG IV ONE (09:43)
[2019-07-25] MEDS: FAMOTIDINE 20 MG/2 ML VIAL IV SCH (09:46)
[2019-07-25] MEDS: THIAMINE 200 MG/2 ML INJ IVP SCH (09:46)
[2019-07-25] MEDS: CEFTRIAXONE/SWI 1gm 1 GM/10 ML SYR IVP SCH (09:47)
[2019-07-25] MEDS ORDERED: POTASSIUM CL 40 MEQ in NA CHLORIDE 0.9% 500 ML IV SCH (10:00)
[2019-07-25 12:24] LABS: Protime INR 1.24
--- NOTE | 2019-07-25 12:28 | RAD REPORT ---
EXAM DESCRIPTION: RAD - Chest Single View - 07/25/2019 11:57 am CLINICAL HISTORY: COPD COMPARISON: July 19 TECHNIQUE: AP portable chest image was obtained 07/25/2019 11:57 am . FINDINGS: Lung volumes are low. No peripheral mass or consolidation. Lung parenchymal pattern not cl early different. No significant failure or volume overload. Defibrillator remains in place. Heart and vasculature are normal. No measurable pleural effusion and no pneumothorax. No acute bony abnormalit y seen. No acute aortic findings suspected. IMPRESSION: No acute cardiopulmonary process. No significant change from comparison.
--- NOTE | 2019-07-25 12:31 | P.PN ---
Subjective Date of Service: 07/26/19 Primary Care Provider: Unknown Chief Complaint: Altered mental status Patient is again more alert today intermittently responsive no fever vital signs stable Review of Systems is unable to be obtained Physical Examination - Vital Signs Temperature: 99.8 F Blood Pressure: 121/72 Pulse: 112 Respirations: 18 Pulse Ox (%): 98 - Physical Exam General: Other (Intermittently responsive) Respiratory: Clear to auscultation bilaterally Cardiovascular: Normal S1 S2, Edema (Has right lower extremity edema) Gastrointestinal: Normal bowel sounds - Studies Medications List Reviewed: Yes Assessment & Plan - Problems (Diagnosis) (1) Altered mental status Status: Acute Plan: Awaiting lumbar puncture tomorrow blood cultures and negative consider an LTAC patient has yeast in the urine is on Diflucan (2) Deep venous thrombosis Status: Acute Plan: Extensive DVT continue with IV heparin after the lumbar puncture can change to Lovenox will need lifelong anticoagulation due to extensive DVT patient has mild pulmonary hypertension normal left ventricular function blood pressure is now stable Qualifiers: DVT location: lower extremity Physician Review: Patient Assessed, Agree with Above Assessment and Plan
[2019-07-25] MEDS: FLUCONAZOLE 100mg IVPB 100 MG/50 ML BAG IV SCH (12:59)
--- NOTE | 2019-07-25 13:04 | P.DS ---
Admission Date: 07/18/19 Discharge Date: 07/25/19 Primary Care Provider: Unknown Disposition: [facility] Discharge Condition: SERIOUS Reason for Admission: Altered mental status Brief History of Present Illness: 69 y o female pt admitted for management of multiple medical issues Vital Signs/Physical Exam: Temp Pulse Resp BP Pulse Ox 99.8 F 112 H 18 121/72 98 07/25/19 12:31 07/25/19 12:31 07/25/19 12:31 07/25/19 12:31 07/25/19 12:31 Laboratory Data at Discharge: WBC 10.1 K/uL (4.3-10.9) 07/25/19 04:30 Hgb 8.4 g/dL (12.0-15.0) L 07/25/19 04:30 Hct 25.1 % (36.0-45.0) L 07/25/19 04:30 Plt Count 229 K/uL (152-406) 07/25/19 04:30 PT 14.6 SECONDS (9.5-12.5) H 07/25/19 12:15 INR 1.24 07/25/19 12:15 APTT 92.9 SECONDS (24.3-36.9) H 07/25/19 06:28 Sodium 145 mmol/L (136-145) 07/25/19 04:30 Potassium 3.7 mmol/L (3.5-5.1) 07/25/19 04:30 BUN 23 mg/dL (7-18) H 07/25/19 04:30 Creatinine 1.37 mg/dL (0.55-1.3) H 07/25/19 04:30 Glucose 95 mg/dL (74-106) 07/25/19 04:30 Phosphorus 3.8 mg/dL (2.5-4.9) D 07/24/19 05:00 Magnesium Cancelled 07/25/19 12:00 Total Bilirubin 0.4 mg/dL (0.2-1.0) 07/25/19 04:30 AST 22 U/L (15-37) 07/25/19 04:30 ALT 13 U/L (12-78) 07/25/19 04:30 Alkaline Phosphatase 90 U/L (45-117) 07/25/19 04:30 Troponin I < 0.02 ng/mL (0.0-0.045) 07/21/19 04:55 Amylase 79 U/L (25-115) 07/18/19 19:15 Lipase 115 U/L (73-393) 07/18/19 19:15 Home Medications: Albuterol Sulfate [Proair Hfa] 90 mcg IH Q4HR 02/04/13 Metformin HCl [Glucophage*] 500 mg PO BIDWM 02/04/13 Venlafaxine HCl [Effexor XR] 150 mg PO DAILY 02/04/13 Liraglutide [Victoza 2-Walker] 1.8 mg SQ DAILY 01/30/14 Fluticasone/Salmeterol [Advair 500/50 Diskus*] 1 puff IH BID #1 disk 02/02/14 Gabapentin 600 mg PO TID 06/20/19 traMADol HCL [Ultram*] 50 mg PO BIDP PRN 06/20/19 Amiloride HCl 5 mg PO DAILY #30 tablet 06/27/19 Calcitrol [Rocaltrol*] 0.5 mcg PO DAILY #30 cap 06/27/19 Calcium Carbonate [Oscal*] 1,000 mg PO TID #90 tab 06/27/19 Cholestyramine/Asp [Questran Light*] 4 gm PO BIDWM #60 packet 06/27/19 Ciprofloxacin HCl [Cipro 500 MG Tablet] 500 mg PO BID #10 tab 06/27/19 Magnesium Oxide [Mag 0X*] 400 mg PO BID #60 tab 06/27/19 Potassium Chloride [Klor-Con M20] 80 meq PO DAILY #120 tab.er.prt 06/27/19 Simethicone [Mylicon*] 80 mg PO TID #90 tab 06/27/19 Valsartan 40 mg PO DAILY #30 tablet 06/27/19 metroNIDAZOLE [Flagyl] 500 mg PO Q8H #15 tablet 06/27/19 Ondansetron HCl 4 mg PO Q6HP PRN 07/19/19 Potassium Chloride 07/19/19 Thiamine HCl [Vitamin B-1] 100 mg PO DAILY 07/19/19 carvediloL [Carvedilol] 12.5 mg PO BID 07/19/19
[2019-07-25 14:50] VITALS: O2SAT 98
--- NOTE | 2019-07-25 14:54 | PN ---
Date of Progress Note: 07/25/2019 Subjective: Patient was admitted with hypovolemic shock secondary to overdiuresis, poor intake. Patient found to have severe hyperkalemia, acute kidney injury. After hydration, kidney function has been improved. Patient found to have DVT. Physical Examination: Vital Signs: Blood pressure 121/72, pulse of 112, afebrile. Patient had good urine output of 1600. Chest: Decreased entry bilateral base. Heart: S1, S2. Regular rhythm. Abdomen: Soft. Mild tenderness. No guarding or rebound. Extremities: +1 edema. Neurologic: Alert, confused. Laboratory Data: WBC 10.1, H and H of 8.4/25.1, platelets 229. Sodium 145, potassium 3.7, bicarb 21, BUN 23, creatinine 1.3, calcium 8.4. Albumin 1.6. Corrected calcium 10.4. Current Medications: The patient on include ceftriaxone, fluconazole, heparin, cholestyramine, Lasix, Pepcid. Assessment And Plan: 1. Acute kidney injury secondary to prerenal, recovered. Currently looks to me started being euvolemic. I am going to get chest x-ray to better evaluate the fluid status. 2. Hypokalemia and hypomagnesemia. We will supplement. 3. Hyperkalemia, resolved. 4. Hyperparathyroidism, currently hypercalcemic. We will hold on any supplement for the time being, especially that she was admitted with hypercalcemia. 5. 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 We will monitor. 6. Failure to thrive. Continue D5. 7. Hypernatremia, resolved. Continue D5. 8. Deep venous thrombosis. Follow up with primary. Continue heparin. RACHELLE/NATE Voice ID: [id number] Report ID: [id number] ROMEO
--- NOTE | 2019-07-25 15:59 | P.DS ---
Admission Date: 07/18/19 Discharge Date: 07/25/19 Primary Care Provider: Unknown Disposition: [facility] FACILITY Discharge Condition: SERIOUS Reason for Admission: Altered mental status Consultations: Pulmonary-Dr. Garcia Cardiology-Dr. Sutton Nephrology-Dr. Restrepo ID-Dr. Chawla Procedures: Medical problem list: Acute on chronic renal failure stage 2 complicated with hypotension likely hypovolemic shock requiring vasopressor suspect autoimmune disease New left upper extremity and right lower extremity DVT likely provoked History of ventricular tachycardia with noted ventricular tachycardia at this time with pacemaker/defibrillator in place Metabolic encephalopathy likely related to above Postmenopausal Vaginal bleeding COPD exacerbation Urine culture showing a fungal infection Anemia of chronic disease requiring blood transfusion with noted postmenopausal bleeding likely from uterine fibroid History of hypertension History of diabetes mellitus type 2 GERD Morbid obesity Brief History of Present Illness: 69-year-old female presented to the emergency room with increased fatigue. Patient was found to be hypovolemic. Patient admitted for further evaluation. Hospital Course: Patient presented with increased fatigue. Patient found to have acute on chronic renal failure stage 2 complicated with hypotension likely related to hypovolemic shock. This required vasopressor supplementation. During the course of her stay. The patient also had metabolic encephalopathy. Sepsis was suspected at that time. Septic shock also noted. Patient has been able to get off vasopressor. Now on IV fluids. Since that time other complications included left upper extremity DVT and right lower extremity DVT. Patient also had an episode of ventricular tachycardia but pacemaker was able to revert her back to normal rhythm. Her defibrillator did not discharge. At this time patient has urine culture showing fungal infection. Patient also being covered with antibiotic therapy to rule out bacteria infection. Initial blood cultures and urine culture shows no bacteria. Due to her complexity of multiple medical issues and current status patient was assess for long-term acute care facility placement to continue her care. She has been accepted. She will continue therapy for further evaluation. Patient awaiting to get ultrasound-guided radiology assisted lumbar tap to further evaluate. This can be done at the long-term acute care facility. Patient still with some confusion. Will need to consider MRI brain to further evaluate. Patient also currently on heparin drip for her DVTs. This can be transitioned to oral medication after lumbar tap. Pulmonology recommends that she may have to be on anti coagulation therapy indefinitely. Further recommendations by Hematology in may be considered. Further evaluation for autoimmune, hypercoagulable disease, or other etiology are pending at discharge. Patient will require multiple specialists including Nephrology. Please note postmenopausal vaginal bleeding also noted. This was discussed in detail with gynecology. Consider CT chest, abdomen and pelvis to rule out cancer. Gynecology felt note uterine cancer as the patient does not have any adnexal masses. This and further issues can be further evaluated at the long-term acute care facility. At this time patient continues on Rocephin, Diflucan, and fluid support. Please refer to daily notes for details of her care. Patient to be discharge to long-term [facility]. Vital Signs/Physical Exam: Temp Pulse Resp BP Pulse Ox 99.8 F 112 H 18 121/72 98 07/25/19 12:31 07/25/19 12:31 07/25/19 12:31 07/25/19 12:31 07/25/19 12:31 General: Alert, Other (Patient more alert but still slightly confuse.) Neck: Supple Respiratory: Clear to auscultation bilaterally, Normal air movement Cardiovascular: Normal pulses, Regular rate/rhythm Gastrointestinal: Normal bowel sounds, No tenderness, No masses, No rebound, No guarding Integumentary: Tenderness/swelling (Less swelling to the left upper extremity and right lower extremity.) Laboratory Data at Discharge: WBC 10.1 K/uL (4.3-10.9) 07/25/19 04:30 Hgb 8.4 g/dL (12.0-15.0) L 07/25/19 04:30 Hct 25.1 % (36.0-45.0) L 07/25/19 04:30 Plt Count 229 K/uL (152-406) 07/25/19 04:30 PT 14.6 SECONDS (9.5-12.5) H 07/25/19 12:15 INR 1.24 07/25/19 12:15 APTT 27.3 SECONDS (24.3-36.9) 07/25/19 14:10 APTT Cancelled 07/25/19 14:10 Sodium 145 mmol/L (136-145) 07/25/19 04:30 Potassium 3.7 mmol/L (3.5-5.1) 07/25/19 04:30 BUN 23 mg/dL (7-18) H 07/25/19 04:30 Creatinine 1.37 mg/dL (0.55-1.3) H 07/25/19 04:30 Glucose 95 mg/dL (74-106) 07/25/19 04:30 Phosphorus 3.8 mg/dL (2.5-4.9) D 07/24/19 05:00 Magnesium Cancelled 07/25/19 12:00 Total Bilirubin 0.4 mg/dL (0.2-1.0) 07/25/19 04:30 AST 22 U/L (15-37) 07/25/19 04:30 ALT 13 U/L (12-78) 07/25/19 04:30 Alkaline Phosphatase 90 U/L (45-117) 07/25/19 04:30 Troponin I < 0.02 ng/mL (0.0-0.045) 07/21/19 04:55 Amylase 79 U/L (25-115) 07/18/19 19:15 Lipase 115 U/L (73-393) 07/18/19 19:15 Home Medications: Albuterol Sulfate [Proair Hfa] 90 mcg IH Q4HR 02/04/13 Venlafaxine HCl [Effexor XR] 150 mg PO DAILY 02/04/13 Liraglutide [Victoza 2-Walker] 1.8 mg SQ DAILY 01/30/14 Fluticasone/Salmeterol [Advair 500/50 Diskus*] 1 puff IH BID #1 disk 02/02/14 traMADol HCL [Ultram*] 50 mg PO BIDP PRN 06/20/19 Calcitrol [Rocaltrol*] 0.5 mcg PO DAILY #30 cap 06/27/19 Calcium Carbonate [Oscal*] 1,000 mg PO TID #90 tab 06/27/19 Cholestyramine/Asp [Questran Light*] 4 gm PO BIDWM #60 packet 06/27/19 Magnesium Oxide [Mag 0X*] 400 mg PO BID #60 tab 06/27/19 Simethicone [Mylicon*] 80 mg PO TID #90 tab 06/27/19 Ondansetron HCl 4 mg PO Q6HP PRN 07/19/19 Thiamine HCl [Vitamin B-1] 100 mg PO DAILY 07/19/19 carvediloL [Carvedilol] 12.5 mg PO BID 04/22/20 Cholestyramine/Asp [Questran Light*] 4 gm PO BIDWM packet 07/25/19 Famotidine [Pepcid*] 20 mg IV BID vial 07/25/19 Insulin -Regular Human [Novolin -R*] See Protocol SQ Q6H ml 07/25/19 Patient Discharge Instructions: Patient be transferred to long-term acute care facility. Continue current medications at this time. Diet: AHA Activity: Bedrest Time spent managing pt's care (in minutes): 55
[2019-07-25] MEDS ORDERED: HEPARIN 5000 UNIT/ML 1 ML VIAL IV SCH (16:00)
[2019-07-25 19:08] LABS: HBsAG Nonreactive (Nonreactive)
[2019-07-26 12:12] VITALS: BP 91/50; TEMP 98.4
[2019-07-26 13:58] LABS: Protein C Antigen 80 % (70-140)
[2019-07-26 15:43] LABS: HIV AG/AB 4TH GEN Non-reactive (Non-reactive)
== END 2019-07-25 18:15 | DRG 682 ==
LOC: ER 16:16 → ERHOLD 20:46 → 3RD-ICU 22:29 → 2ND 07-24 14:09
PROVIDERS: ADMIT Hospitalist; ATTEND Internal Medicine Nephrology
PROC: 02HV33Z Insertion of Infusion Device into Superior Vena Cava, Percutaneous Approach (ICD-10-PCS; principal; 2019-07-19)
PROC: 30233N1 Transfusion of Nonautologous Red Blood Cells into Peripheral Vein, Percutaneous Approach (ICD-10-PCS; 2019-07-23)
DX: N17.0 Acute kidney failure with tubular necrosis (principal); R57.1 Hypovolemic shock; G93.41 Metabolic encephalopathy; A41.9 Sepsis, unspecified organism; R65.21 Severe sepsis with septic shock; E43 Unspecified severe protein-calorie malnutrition; I47.2 Ventricular tachycardia; J44.1 Chronic obstructive pulmonary disease with (acute) exacerbation; B49 Unspecified mycosis; Z68.43 Body mass index [BMI] 50.0-59.9, adult; E87.0 Hyperosmolality and hypernatremia; E87.2 Acidosis; L03.116 Cellulitis of left lower limb; N39.0 Urinary tract infection, site not specified; I82.411 Acute embolism and thrombosis of right femoral vein; I82.431 Acute embolism and thrombosis of right popliteal vein; I82.811 Embolism and thrombosis of superficial veins of right lower extremity; E87.5 Hyperkalemia; I12.9 Hypertensive chronic kidney disease with stage 1 through stage 4 chronic kidney disease, or unspecified chronic kidney disease; N18.2 Chronic kidney disease, stage 2 (mild); M35.9 Systemic involvement of connective tissue, unspecified; N95.0 Postmenopausal bleeding; D63.8 Anemia in other chronic diseases classified elsewhere; D25.9 Leiomyoma of uterus, unspecified; E11.22 Type 2 diabetes mellitus with diabetic chronic kidney disease; K21.9 Gastro-esophageal reflux disease without esophagitis; E66.01 Morbid (severe) obesity due to excess calories; Z79.4 Long term (current) use of insulin; Z79.899 Other long term (current) drug therapy; E87.6 Hypokalemia; R63.1 Polydipsia; Z88.0 Allergy status to penicillin; Z88.8 Allergy status to other drugs, medicaments and biological substances; J44.9 Chronic obstructive pulmonary disease, unspecified; Z90.711 Acquired absence of uterus with remaining cervical stump; Z98.51 Tubal ligation status; E11.40 Type 2 diabetes mellitus with diabetic neuropathy, unspecified; E21.1 Secondary hyperparathyroidism, not elsewhere classified; E55.9 Vitamin D deficiency, unspecified; R60.0 Localized edema; Z95.810 Presence of automatic (implantable) cardiac defibrillator; M06.9 Rheumatoid arthritis, unspecified; F41.0 Panic disorder [episodic paroxysmal anxiety]; F41.9 Anxiety disorder, unspecified
CPT/HCPCS: 36415; 36430; 36569; 51702; 70450; 71045; 74018; 74176; 76770; 76830; 76856; 80048; 80053; 80069; 80074; 80076; 80307; 81003; 81015; 81241; 82150; 82533; 82550; 82553; 82607; 82805; 82947; 83540; 83605; 83690; 83735; 83970; 84100; 84145; 84165; 84439; 84443; 84484; 85014; 85018; 85025; 85044; 85302; 85305; 85306; 85610; 85652; 85730; 86038; 86140; 86225; 86430; 86850; 86900; 86901; 87040; 87086; 87088; 87389; 93005; 93280; 93306; 93970; 93971; 94640; 96361; 96365; 96375; 99285; J0610; J0696; J1450; J1630; J1644; J1940; J2270; J2405; J3411; J3475; J7030; J7040; J7042; J7060; J7120; J7799; P9016

== ENCOUNTER 2020-02-22 19:23 | Emergency (ER) | payer OTHER ==
[2020-02-22 20:31] LABS: Absolute Lymphocytes (CBC) 1.1 K/uL (0.7-4.9); Basophils % 1.2 % (0-1.3); Lymphocytes % 19.2 % (15.3-44.8); MPV 8.6 fL (7.6-11.3); RBC Red Blood Cell Count 3.42 M/uL (3.86-4.86)
[2020-02-22 20:36] LABS: Protime INR 2.03
[2020-02-22 20:50] LABS: ALT/SGPT 11 U/L (12-78); AST/SGOT 14 U/L (15-37); Albumin 2.6 g/dL (3.4-5.0); Alkaline Phosphatase 54 U/L (45-117); BUN Blood Urea Nitrogen 6 mg/dL (7-18); Bicarbonate 30 mmol/L (21-32); Bilirubin Direct 0.3 mg/dL (0-0.2); Bilirubin Total 0.8 mg/dL (0.2-1.0); Glucose Level 73 mg/dL (74-106); Protein, Total 9.4 g/dL (6.4-8.2); Sodium Level 139 mmol/L (136-145)
[2020-02-22 20:55] LABS: Potassium 2.6 mmol/L (3.5-5.1)
[2020-02-22 20:58] LABS: Urine Blood 1+ (NEG); Urine Glucose NEGATIVE (NEG); Urine Protein 1+ (NEG); Urine pH 8.5 (5.0-7.0)
[2020-02-22] MEDS ORDERED: KCL 20 MEQ/100 mL IVPB 20 MEQ/100 ML BAG IV ONE (21:16)
[2020-02-22 21:39] LABS: Urine Bacteria >50 /HPF (<20)
[2020-02-22 21:41] LABS: Urine Triple Phosphate Crystal MANY (NONE SEEN)
--- NOTE | 2020-02-22 21:44 | RAD REPORT ---
EXAM DESCRIPTION: CT - Abdomen Pelvis W Contrast - 02/22/2020 9:10 pm CLINICAL HISTORY: Hematuria COMPARISON: May 2019 TECHNIQUE: Computed axial tomography of the abdomen pelvis was obtained. 100 cc Isovue-300 was admin istered intravenously. Oral contrast was not requested which limits evaluation of bowel. All CT scans are performed using dose optimization technique as appropriate and may include automated exposure control or mA/KV adjustment according to patient size. FINDINGS: The liver, spleen, pancreas, adrenal and kidneys appear unremarkable. There is no evidence of diverticulitis. The rectum is distended with stool measuring 7.8 centimeters A percutaneous catheter is present within stomach. A Rome catheter is present within the bladder. Ch olecystectomy has been performed IMPRESSION: Rectum is distended with stool measuring 7.8 centimeters
--- NOTE | 2020-02-22 22:59 | EDPHYS ---
Physician Documentation [facility] Name: Anita Harp Age: 70 yrs Sex: Female : 1950 Arrival Date: 02/22/2020 Time: 19:29 Bed 2 Private MD: ED Physician Damian Deshpande HPI: 02/21 20:21 This 70 yrs old Black Female presents to ER via EMS with complaints of Vaginal Bleeding.pm1 20:21 The patient presents with Bleeding from catheter site. Onset: The symptoms/episode pm1 began/occurred today. Modifying factors: The symptoms are alleviated by nothing, the symptoms are aggravated by possible from brito catheter. There is no visible blood in the brito bag. Associated signs and symptoms: Pertinent positives: constipation, Pertinent negatives: diarrhea, fever, vomiting, pain. Bed bound patient presents to the ER with complaints of bleeding from brito catheter site. Patient denies any pain and her only complaint is constipation. Historical: - Allergies: 19:35 PENICILLINS; ea 19:35 Ibuprofen; ea 19:35 Aspirin; ea - Home Meds: 19:35 venlafaxine 150 mg Oral cp24 1 cap once daily [Active]; valsartan 160 mg Oral tab 1 tab ea once daily [Active]; potassium chloride 20 mEq Oral TbER 1 tab once daily [Active]; metformin 500 mg Oral TbER 2 tabs once daily [Active]; gabapentin 300 mg Oral cap 1 cap 3 times per day [Active]; furosemide 20 mg Oral tab 1 tab once daily [Active]; carvedilol 12.5 mg Oral tab 1 tab 2 times per day [Active]; amitriptyline 10 mg Oral tab 1 tab 3 times per day [Active]; - PMHx: 19:35 Rheumatoid Arthritis; Panic Attacks; Diabetes - NIDDM; COPD; claustrophobia; CHF; ea Anxiety; - PSHx: 19:35 Partial Hysterectomy; Tubal ligation; Cholecystectomy; ea - Immunization history:: Adult Immunizations up to date. - Social history:: Smoking status: Patient denies any tobacco usage or history of. ROS: 20:21 Positive for bleeding from brito catheter site. pm1 20:21 Constitutional: Negative for fever, chills, and weight loss, Cardiovascular: Negative for chest pain, palpitations, and edema, Respiratory: Negative for shortness of breath, cough, wheezing, and pleuritic chest pain. 20:21 Back: Negative for injury and pain, MS/Extremity: Negative for injury and deformity, Skin: Negative for injury, rash, and discoloration, Neuro: Negative for headache, weakness, numbness, tingling, and seizure. 20:21 Abdomen/GI: Positive for constipation, Negative for abdominal pain, nausea, vomiting, and diarrhea. Exam: 20:21 Constitutional: This is a well developed, well nourished patient who is awake, alert, pm1 and in no acute distress. Head/Face: Normocephalic, atraumatic. 20:21 Back: No spinal tenderness. No costovertebral tenderness. Full range of motion. Skin: Warm, dry with normal turgor. Normal color with no rashes, no lesions, and no evidence of cellulitis. MS/ Extremity: Pulses equal, no cyanosis. Neurovascular intact. Full, normal range of motion. 20:21 Cardiovascular: Exam negative for acute changes, Rate: normal, Rhythm: regular, Pulses: no pulse deficits are appreciated. 20:21 Respiratory: Exam negative for acute changes, respiratory distress, shortness of breath. 20:21 Abdomen/GI: Inspection: obese Palpation: abdomen is soft and non-tender. 20:21 : a brito is noted, no visible blood in the brito catheter some mild bleeding present around the opening of the urethra . 20:21 Neuro: Exam negative for acute changes, Orientation: is normal, Mentation: is normal, Motor: is normal, moves all fours. Vital Signs: 19:30 BP 140 / 76; Pulse 95; Resp 18; Temp 97.7; Pulse Ox 99% on R/A; Weight 106.59 kg; ea Height 5 ft. 4 in. (162.56 cm); Pain 0/10; 21:22 BP 147 / 84; Pulse 96; Resp 18; Pulse Ox 98% ; ea 22:25 BP 131 / 86; Pulse 93; Resp 18; Pulse Ox 98% ; ea 23:28 BP 139 / 69; Pulse 93; Resp 18; Pulse Ox 100% on R/A; ea 19:30 Body Mass Index 40.34 (106.59 kg, 162.56 cm) ea Procedures: 23:00 Fecal disimpaction: digital disimpaction was performed, with a large amount of stool pm1 expressed. The patient tolerated the intervention well, two fists full of feces. chace Woods RN. MDM: 20:27 Patient medically screened. pm1 21:43 ED course: Patient's daughter requested x-rays of bilateral knees because the patient pm1 has been unable to walk due to bilateral knee pain since May. 22:57 Data reviewed: vital signs. Data interpreted: Pulse oximetry: on room air is 98 %. pm1 Interpretation: normal. Counseling: I had a detailed discussion with the patient and/or guardian regarding: the historical points, exam findings, and any diagnostic results supporting the discharge/admit diagnosis, lab results, radiology results, the need for outpatient follow up, to return to the emergency department if symptoms worsen or persist or if there are any questions or concerns that arise at home. 02/21 19:37 Order name: Basic Metabolic Panel; Complete Time: 20:58 pm1 02/21 19:37 Order name: CBC with Diff; Complete Time: 20:55 pm1 02/21 19:37 Order name: Hepatic Function; Complete Time: 20:58 pm1 02/21 19:37 Order name: PT-INR; Complete Time: 20:55 pm1 02/21 19:37 Order name: Ptt, Activated; Complete Time: 20:55 pm1 02/21 20:28 Order name: Urine Microscopic Only; Complete Time: 21:42 pm1 02/21 19:37 Order name: IV Saline Lock; Complete Time: 20:13 pm1 02/21 20:17 Order name: CT Abd/Pelvis - IV Contrast Only; Complete Time: 21:55 pm1 02/21 20:43 Order name: Urine Dipstick--Ancillary (enter results); Complete Time: 21:06 2 02/21 21:41 Order name: Urine Culture EDNE 02/21 21:43 Order name: Knee Right 3 View XRAY pm1 02/21 21:43 Order name: Knee Left 3 View XRAY pm1 02/21 19:37 Order name: Labs collected and sent; Complete Time: 20:13 pm1 02/21 20:28 Order name: Urine Dipstick-Ancillary (obtain specimen); Complete Time: 20:36 pm1 Administered Medications: 21:19 Drug: Potassium Chloride 20 mEq Route: IV; Rate: calculated rate; Site: left forearm; ea 23:21 Follow up: Response: No adverse reaction; IV Status: Completed infusion; IV Intake: ea 100ml 23:00 Drug: Potassium Effervescent Tablet 50 mEq Route: PO; ea 23:21 Follow up: Response: No adverse reaction ea Disposition: 02/22 04:40 Co-signature as Attending Physician, Damian Deshpande MD. [facility] Disposition: 02/22/20 22:58 Discharged to Home. Impression: Hematuria, Urinary tract infection, site not specified, Pain in left knee, Pain in right knee, Constipation, Hypokalemia. - Condition is Stable. - Discharge Instructions: Constipation, Adult, Rbito Catheter Care, Adult, Hematuria, Adult, Urinary Tract Infection, Adult, Knee Pain, Hypokalemia. - Prescriptions for Colace 100 mg Oral Tablet - take 1 tablet by ORAL route every 12 hours; 14 tablet. Bactrim DS 800- 160 mg Oral Tablet - take 1 tablet by ORAL route every 12 hours for 10 days; 20 tablet. - Medication Reconciliation Form, Thank You Letter, Antibiotic Education, Prescription Opioid Use form. - Follow up: Emergency Department; When: As needed; Reason: Worsening of condition. Follow up: Private Physician; When: 2 - 3 days; Reason: Recheck today's complaints, Continuance of care, Re-evaluation by your physician. - Problem is new. - Symptoms have improved. Signatures: Dispatcher [employer] EDMS Richie White, EKG/ECG TECHNICIAN EKG/ECG TECHNICIAN pm1 Peggy Meyer, CHRISTOPH RN Damian Perla MD MD [facility] Corrections: (The following items were deleted from the chart) 02/21 22:59 22:58 02/22/2020 22:58 Discharged to Home. Impression: Hematuria; Urinary tract pm1 infection, site not specified; Pain in left knee; Pain in right knee; Constipation. Condition is Stable. Forms are Medication Reconciliation Form, Thank You Letter, Antibiotic Education, Prescription Opioid Use. Follow up: Emergency Department; When: As needed; Reason: Worsening of condition. Follow up: Private Physician; When: 2 - 3 days; Reason: Recheck today's complaints, Continuance of care, Re-evaluation by your physician. Problem is new. Symptoms have improved. pm1 02/22 00:39 02/21 22:59 02/22/2020 22:58 Discharged to Home. Impression: Hematuria; Urinary tract ea infection, site not specified; Pain in left knee; Pain in right knee; Constipation; Hypokalemia. Condition is Stable. Discharge Instructions: Constipation, Adult, Hematuria, Adult, Urinary Tract Infection, Adult, Knee Pain, Brito Catheter Care, Adult. Forms are Medication Reconciliation Form, Thank You Letter, Antibiotic Education, Prescription Opioid Use. Follow up: Emergency Department; When: As needed; Reason: Worsening of condition. Follow up: Private Physician; When: 2 - 3 days; Reason: Recheck today's complaints, Continuance of care, Re-evaluation by your physician. Problem is new. Symptoms have improved. pm1
--- NOTE | 2020-02-22 22:59 | ER ---
Nurse's Notes [facility] Name: Anita Harp Age: 70 yrs Sex: Female : 1950 Arrival Date: 02/22/2020 Time: 19:29 Bed 2 Private MD: Diagnosis: Hematuria;Urinary tract infection, site not specified;Pain in left knee;Pain in right knee;Constipation;Hypokalemia Presentation: 02/21 19:30 Chief complaint: EMS states: Reports bleeding that is coming from her brito catheter ea site, family reports there was a large amount of blood coming from the area, they noticed it today. Pt denies pain, reports she has only been constipated. Coronavirus screen: At this time, the client does not indicate any symptoms associated with coronavirus-19. Ebola Screen: No symptoms or risks identified at this time. Initial Sepsis Screen: Does the patient meet any 2 criteria? No. Patient's initial sepsis screen is negative. Does the patient have a suspected source of infection? No. Patient's initial sepsis screen is negative. Risk Assessment: Do you want to hurt yourself or someone else? Patient reports no desire to harm self or others. Onset of symptoms was February 22, 2020. 19:30 Method Of Arrival: EMS: [facility] ea 19:30 Acuity: DENTON 3 ea Triage Assessment: 19:33 General: Appears in no apparent distress. Behavior is appropriate for age. Pain: Denies ea pain. Neuro: Level of Consciousness is awake, alert, obeys commands, Oriented to person, place, time, situation. Cardiovascular: Patient's skin is warm and dry. Respiratory: Airway is patent Respiratory effort is even, unlabored, Respiratory pattern is regular, symmetrical. : Reports vaginal bleeding that is. Derm: Skin is normal, Skin temperature is warm. Historical: - Allergies: 19:35 PENICILLINS; ea 19:35 Ibuprofen; ea 19:35 Aspirin; ea - Home Meds: 19:35 venlafaxine 150 mg Oral cp24 1 cap once daily [Active]; valsartan 160 mg Oral tab 1 tab ea once daily [Active]; potassium chloride 20 mEq Oral TbER 1 tab once daily [Active]; metformin 500 mg Oral TbER 2 tabs once daily [Active]; gabapentin 300 mg Oral cap 1 cap 3 times per day [Active]; furosemide 20 mg Oral tab 1 tab once daily [Active]; carvedilol 12.5 mg Oral tab 1 tab 2 times per day [Active]; amitriptyline 10 mg Oral tab 1 tab 3 times per day [Active]; - PMHx: 19:35 Rheumatoid Arthritis; Panic Attacks; Diabetes - NIDDM; COPD; claustrophobia; CHF; ea Anxiety; - PSHx: 19:35 Partial Hysterectomy; Tubal ligation; Cholecystectomy; ea - Immunization history:: Adult Immunizations up to date. - Social history:: Smoking status: Patient denies any tobacco usage or history of. Screenin:32 Abuse screen: Denies threats or abuse. Nutritional screening: No deficits noted. ea Tuberculosis screening: No symptoms or risk factors identified. Fall Risk None identified. Assessment: 19:34 Reassessment: see triage assessment. ea 21:14 Reassessment: Patient and/or family updated on plan of care and expected duration. Pain ea level reassessed. Patient is alert, oriented x 3, equal unlabored respirations, skin warm/dry/pink. Returned from CT. 22:24 Reassessment: Patient and/or family updated on plan of care and expected duration. Pain ea level reassessed. Patient is alert, oriented x 3, equal unlabored respirations, skin warm/dry/pink. 23:10 Reassessment: Patient and/or family updated on plan of care and expected duration. Pain ea level reassessed. Patient is alert, oriented x 3, equal unlabored respirations, skin warm/dry/pink. Discharge instruction given to family and patient, verbalized the understanding of instruction. Pt awaiting for transportation back home. 02/22 00:19 Reassessment: Patient and/or family updated on plan of care and expected duration. Pain ea level reassessed. Patient is alert, oriented x 3, equal unlabored respirations, skin warm/dry/pink. Awaiting on transportation for transfer. 00:37 Reassessment: Patient and/or family updated on plan of care and expected duration. Pain ea level reassessed. Patient is alert, oriented x 3, equal unlabored respirations, skin warm/dry/pink. Transferred home via EMS. Pt tolerating well. Vital Signs: 02/21 19:30 BP 140 / 76; Pulse 95; Resp 18; Temp 97.7; Pulse Ox 99% on R/A; Weight 106.59 kg; ea Height 5 ft. 4 in. (162.56 cm); Pain 0/10; 21:22 BP 147 / 84; Pulse 96; Resp 18; Pulse Ox 98% ; ea 22:25 BP 131 / 86; Pulse 93; Resp 18; Pulse Ox 98% ; ea 23:28 BP 139 / 69; Pulse 93; Resp 18; Pulse Ox 100% on R/A; ea 19:30 Body Mass Index 40.34 (106.59 kg, 162.56 cm) ea ED Course: 19:29 Patient arrived in ED. ea 19:30 Richie White NP is PHCP. pm1 19:30 Damian Deshpande MD is Attending Physician. pm1 19:32 Triage completed. ea 19:32 Patient has correct armband on for positive identification. Bed in low position. Call ea light in reach. Side rails up X 1. 19:32 Patient placed in an exam room, on a stretcher, on pulse oximetry. ea 19:34 Peggy Meyer, CHRISTOPH is Primary Nurse. ea 20:55 Notified Nurse Practitioner and/or Physician Web Press Jogger of a critical lab result(s), jd3 Potassium of 2.6. 21:10 CT Abd/Pelvis - IV Contrast Only In Process Unspecified. EDMS 22:31 Knee Right 3 View XRAY In Process Unspecified. EDMS 22:31 Knee Left 3 View XRAY In Process Unspecified. EDMS 23:10 No provider procedures requiring assistance completed. IV discontinued, intact, ea bleeding controlled, No redness/swelling at site. Pressure dressing applied. Administered Medications: 21:19 Drug: Potassium Chloride 20 mEq Route: IV; Rate: calculated rate; Site: left forearm; ea 23:21 Follow up: Response: No adverse reaction; IV Status: Completed infusion; IV Intake: ea 100ml 23:00 Drug: Potassium Effervescent Tablet 50 mEq Route: PO; ea 23:21 Follow up: Response: No adverse reaction ea Intake: 23:21 IV: 100ml; Total: 100ml. ea Outcome: 22:58 Discharge ordered by . pm1 23:20 Discharge instructions given to patient, family, Instructed on discharge instructions, ea follow up and referral plans. medication usage, Demonstrated understanding of instructions, follow-up care, medications, Prescriptions given X 2. 02/22 00:36 Discharged to Discharge home via EMS [facility] Condition: stable 00:39 Patient left the ED. ea Addendum: 02/26/2020 07:35 Addendum: Culture Results: Positive urine culture. Bacteria is resistant to, has s s intermediate sensitivity, or is not tested against prescribed antibiotics. Report given to SILVINA for further evaluation and then to catalog librarian for follow up with patient. 13:41 Addendum: Culture Results: Positive urine culture. Phone call Attempt #1 no answer, s s left VM. Signatures: Dispatcher [employer] EDAngelina Bowman RN RN Richie Escobar, NGOC MUNITIONS WORKER pm1 Peggy Meyer RN RN ea Davies, Jonathon, RN RN [id number]
[2020-02-22] MEDS ORDERED: POTASSIUM 25 MEQ EFFERV TAB ONE (23:06)
[2020-02-23 03:28] VITALS: TEMP 97.7
[2020-02-23 03:33] VITALS: BP 139/69; O2SAT 100
--- NOTE | 2020-02-23 08:30 | RAD REPORT ---
EXAM DESCRIPTION: RAD - Knee Right 3 View - 02/22/2020 10:30 pm CLINICAL HISTORY: Right knee pain FINDINGS: No fracture or dislocation is seen. Marked osteoarthritis medial and patellofemoral compartments consisting joint space narrowing and ost eophytes. Small joint effusion
--- NOTE | 2020-02-23 08:31 | RAD REPORT ---
EXAM DESCRIPTION: RAD - Knee Left 3 View - 02/22/2020 10:31 pm CLINICAL HISTORY: Left knee pain status post injury FINDINGS: No fracture or dislocation is seen. Marked osteoarthritis medial, lateral and patellofemoral compartments consisting joint space narrowin g and osteophytes. Mild lateral subluxation tibia on the femur
== END 2020-02-23 00:39 | disposition home or self-care (01) ==
LOC: ER 19:23
DX: N39.0 Urinary tract infection, site not specified (principal); K59.00 Constipation, unspecified; E87.6 Hypokalemia; M25.562 Pain in left knee; M25.561 Pain in right knee; E11.9 Type 2 diabetes mellitus without complications; J44.9 Chronic obstructive pulmonary disease, unspecified; I50.9 Heart failure, unspecified; Z88.0 Allergy status to penicillin; Z88.6 Allergy status to analgesic agent
CPT/HCPCS: 96365; 87088; 85025; 87086; 80048; 36415; 85610; 80076; 85730; 87077 ×2; 87186 ×2; 74177; 73562 ×2; 99284; 96366; Q9967; J3480; 81003; 81015

== ENCOUNTER 2020-02-23 13:30 | Emergency (ER) | payer OTHER ==
--- OUTSIDE RECORDS SUMMARY | 2020-02-23 13:43 | XMS REPORT | Continuity of Care Document ---
:1950 Author Organization [facility] Address [address] [place] [address] Care Team Providers Name Role Phone MADDI SMITH Attending Clinician Unavailable MADDI SMITH Admitting Clinician Unavailable Problems This patient has no known problems. Allergies, Adverse Reactions, Alerts This patient has no known allergies or adverse reactions. Medications This patient has no known medications. Procedures This patient has no known procedures. Encounters Start End Encounter Admission Attending Care Care Encounter Source Date/Time Date/Time Type Type Clinicians Facility Department ID 2019-09-01 2019-09-01 Outpatient C RAUL SMITH RAD [id number] [facility] 08:32:00 23:59:00 MADDI [facility] Results This patient has no known results.
--- NOTE | 2020-02-23 13:58 | ER ---
Nurse's Notes [facility] Name: Anita Harp Age: 70 yrs Sex: Female : 1950 Arrival Date: 02/23/2020 Time: 13:35 Bed 18 Private MD: Diagnosis: Abnormal uterine and vaginal bleeding, unspecified;Open wound of right buttock Presentation: 02/22 13:52 Chief complaint: EMS states: C/O vaginal bleed. Was here for the same thing yesterday. ca1 They put a Rome in her, she also said, the Rome is too short and seems to be coming out. Coronavirus screen: Client denies travel out of the [place] in the last 14 days. At this time, the client does not indicate any symptoms associated with coronavirus-19. Ebola Screen: Patient negative for fever greater than or equal to 101.5 degrees Fahrenheit, and additional compatible Ebola Virus Disease symptoms Patient denies exposure to infectious person. Patient denies travel to an Ebola-affected area in the 21 days before illness onset. No symptoms or risks identified at this time. Initial Sepsis Screen: Does the patient meet any 2 criteria? No. Patient's initial sepsis screen is negative. Does the patient have a suspected source of infection? No. Patient's initial sepsis screen is negative. Risk Assessment: Do you want to hurt yourself or someone else? Patient reports no desire to harm self or others. Onset of symptoms was February 23, 2020. 13:52 Method Of Arrival: EMS: [facility] ca1 13:52 Acuity: DENT[place] 4 ca1 14:33 Acuity: DENT[place] 3 ca1 Historical: - Allergies: 13:59 Aspirin; ca1 13:59 PENICILLINS; ca1 13:59 Ibuprofen; ca1 - Home Meds: 13:59 amitriptyline 10 mg Oral tab 1 tab 3 times per day [Active]; carvedilol 12.5 mg Oral ca1 tab 1 tab 2 times per day [Active]; furosemide 20 mg Oral tab 1 tab once daily [Active]; gabapentin 300 mg Oral cap 1 cap 3 times per day [Active]; metformin 500 mg Oral TbER 2 tabs once daily [Active]; potassium chloride 20 mEq Oral TbER 1 tab once daily [Active]; valsartan 160 mg Oral tab 1 tab once daily [Active]; venlafaxine 150 mg Oral cp24 1 cap once daily [Active]; - PMHx: 13:59 Anxiety; CHF; claustrophobia; COPD; Diabetes - NIDDM; Panic Attacks; Rheumatoid ca1 Arthritis; - PSHx: 13:59 Partial Hysterectomy; Tubal ligation; Cholecystectomy; ca1 - Immunization history:: Adult Immunizations up to date. - Social history:: Smoking status: Patient denies any tobacco usage or history of. Screenin:00 Abuse screen: Denies threats or abuse. Denies injuries from another. Nutritional ca1 screening: No deficits noted. Tuberculosis screening: No symptoms or risk factors identified. Fall Risk Secondary diagnosis (15 points) impaired mobility, Ambulatory Aid- Crutches/Cane/Walker (15 pts). Gait- Impaired (20 pts.). Total Hernández Fall Scale indicates High Risk Score (45 or more points). Fall prevention measures have been instituted. Side Rails Up X 2 As available patient and family educated on Fall Prevention Program and Strategies. Assessment: 14:00 General: Appears in no apparent distress. comfortable, Behavior is calm, cooperative, ca1 appropriate for age. Pain: Denies pain. Neuro: Level of Consciousness is awake, alert, obeys commands, Oriented to person, place, time, situation. : Rome in place to gravity drainage Genitalia appear normal. Derm: Skin is healthy with good turgor, Skin is pink, warm \T\ dry. Wound noted right gluteal fold and right gluteus emigdio and gluteal cleft Wound is small amount of bleeding on superficial wounds reportedly from scratching. Musculoskeletal: Circulation, motion, and sensation intact. Capillary refill < 3 seconds. 14:04 Reassessment: Pt had BM on briefs, cleaned and changed. Rome in place, patent and ca1 draining urine. 14:29 Reassessment: Wound care completed. Noticed vaginal bleeding. Notified provider. ca1 15:04 Reassessment: Patient appears in no apparent distress at this time. Patient and/or ca1 family updated on plan of care and expected duration. Pain level reassessed. Patient is alert, oriented x 3, equal unlabored respirations, skin warm/dry/pink. Awaiting transport. 16:00 Reassessment: Patient appears in no apparent distress at this time. Patient and/or ca1 family updated on plan of care and expected duration. Pain level reassessed. Patient is alert, oriented x 3, equal unlabored respirations, skin warm/dry/pink. Awaiting transport. 17:00 Reassessment: Patient appears in no apparent distress at this time. Patient and/or ca1 family updated on plan of care and expected duration. Pain level reassessed. Patient is alert, oriented x 3, equal unlabored respirations, skin warm/dry/pink. Awaiting transport. Vital Signs: 13:52 BP 128 / 65; Pulse 95; Resp 17 S; Temp 98.5(TE); Pulse Ox 100% on R/A; Weight 146.96 kg ca1 (R); Height 5 ft. 4 in. (162.56 cm) (R); 14:50 BP 154 / 85; Pulse 93; Resp 16; Pulse Ox 100% on R/A; mt 15:50 BP 155 / 79; Pulse 94; Resp 16 S; Pulse Ox 100% on R/A; ca1 16:50 BP 158 / 76; Pulse 91; Resp 16 S; Pulse Ox 100% on R/A; ca1 17:33 BP 148 / 85; Pulse 93; Resp 16 S; Pulse Ox 100% on R/A; ca1 13:52 Body Mass Index 55.61 (146.96 kg, 162.56 cm) ca1 ED Course: 13:35 Patient arrived in ED. iw 13:48 [facility] Florez [facility]-C [facility] kb 13:48 Ekaterina Traylor MD is Attending Physician. kb 13:52 Mohini Shepherd, CHRISTOPH is Primary Nurse. ca1 13:56 Triage completed. ca1 13:59 Arm band placed on right wrist. ca1 14:00 Patient has correct armband on for positive identification. Placed in gown. Bed in low ca1 position. Call light in reach. Side rails up X2. Pulse ox on. NIBP on. Warm blanket given. 14:30 Wound care: to scratch wounds located on buttocks and right gluteal fold and right ca1 gluteus emigdio and gluteal cleft was cleaned with dressed with Neosporin, 4X4s, Patient tolerated well. 17:33 No provider procedures requiring assistance completed. Patient did not have IV access ca1 during this emergency room visit. Administered Medications: No medications were administered Outcome: 13:57 Discharge ordered by . kb 15:06 Discharge ordered by . kb 17:33 Discharged to home via ambulance. ca1 17:33 Condition: stable 17:33 Discharge instructions given to patient, Instructed on discharge instructions, follow up and referral plans. wound care, Demonstrated understanding of instructions, follow-up care, wound care. 17:34 Patient left the ED. ca1 Signatures: Daniela Florez, CHAIN MAKER MACHINE-C CHAIN MAKER MACHINE-Ckb Claudette Hill, CHRISTOPH RN Taty Rodriguez md Cora, CHRISTOPH Rajan RN ca1 Corrections: (The following items were deleted from the chart) 14:06 14:00 Derm: Skin is healthy with good turgor, Skin is pink, warm \T\ dry. Wound noted ca1 right gluteal fold and right gluteus emigdio and gluteal cleft Wound is small amount of bleeding ca1 17:31 15:04 Reassessment: Patient appears in no apparent distress at this time. Patient ca1 and/or family updated on plan of care and expected duration. Pain level reassessed. Patient is alert, oriented x 3, equal unlabored respirations, skin warm/dry/pink. ca1 17: 16:00 Reassessment: Patient appears in no apparent distress at this time. Patient ca1 and/or family updated on plan of care and expected duration. Pain level reassessed. Patient is alert, oriented x 3, equal unlabored respirations, skin warm/dry/pink. ca1 17: 17:00 Reassessment: Patient appears in no apparent distress at this time. Patient ca1 and/or family updated on plan of care and expected duration. Pain level reassessed. Patient is alert, oriented x 3, equal unlabored respirations, skin warm/dry/pink. ca1
--- NOTE | 2020-02-23 13:58 | EDPHYS ---
Physician Documentation [facility] Name: Anita Harp Age: 70 yrs Sex: Female : 1950 Arrival Date: 02/23/2020 Time: 13:35 Bed 18 Private MD: ED Physician Ekaterina Traylor HPI: 02/22 13:50 This 70 yrs old Black Female presents to ER via Unassigned with complaints of bleeding kb from brito site. 13:50 The patient presents with bleeding from brito site. Onset: The symptoms/episode kb began/occurred yesterday. Modifying factors: The symptoms are alleviated by nothing, the symptoms are aggravated by nothing. Associated signs and symptoms: The patient has no apparent associated signs or symptoms. Severity of symptoms: At their worst the symptoms were moderate, in the emergency department the symptoms are unchanged. The patient has not experienced similar symptoms in the past. The patient has been recently seen at the [facility] Emergency Department, yesterday, for similar complaints. Pt reports she has had bleeding from brito site since this one was put in by home health. States she was here yesterday, but the bleeding continued today so she came back to see what was causing it. Pt had large BM in route to ER. Pt cleaned up and perineal are inspected. No bleeding noted at meatus or vaginal area after cleaning area. Several superficial open wounds noted to buttocks and between legs. Pt reports she has been scratching those areas a lot. . Historical: - Allergies: 13:59 Aspirin; ca1 13:59 PENICILLINS; ca1 13:59 Ibuprofen; ca1 - Home Meds: 13:59 amitriptyline 10 mg Oral tab 1 tab 3 times per day [Active]; carvedilol 12.5 mg Oral ca1 tab 1 tab 2 times per day [Active]; furosemide 20 mg Oral tab 1 tab once daily [Active]; gabapentin 300 mg Oral cap 1 cap 3 times per day [Active]; metformin 500 mg Oral TbER 2 tabs once daily [Active]; potassium chloride 20 mEq Oral TbER 1 tab once daily [Active]; valsartan 160 mg Oral tab 1 tab once daily [Active]; venlafaxine 150 mg Oral cp24 1 cap once daily [Active]; - PMHx: 13:59 Anxiety; CHF; claustrophobia; COPD; Diabetes - NIDDM; Panic Attacks; Rheumatoid ca1 Arthritis; - PSHx: 13:59 Partial Hysterectomy; Tubal ligation; Cholecystectomy; ca1 - Immunization history:: Adult Immunizations up to date. - Social history:: Smoking status: Patient denies any tobacco usage or history of. ROS: 13:54 Constitutional: Negative for fever, chills, and weight loss, Cardiovascular: Negative kb for chest pain, palpitations, and edema, Respiratory: Negative for shortness of breath, cough, wheezing, and pleuritic chest pain, Abdomen/GI: Negative for abdominal pain, nausea, vomiting, diarrhea, and constipation, Back: Negative for injury and pain, MS/Extremity: Negative for injury and deformity, Skin: Negative for injury, rash, and discoloration, Neuro: Negative for headache, weakness, numbness, tingling, and seizure. 13:54 : Positive for bleeding from brito site. kb Exam: 13:54 Constitutional: This is a well developed, well nourished patient who is awake, alert, kb and in no acute distress. Head/Face: Normocephalic, atraumatic. Chest/axilla: Normal chest wall appearance and motion. Nontender with no deformity. No lesions are appreciated. Cardiovascular: Regular rate and rhythm with a normal S1 and S2. No gallops, murmurs, or rubs. Normal PMI, no JVD. No pulse deficits. Respiratory: Lungs have equal breath sounds bilaterally, clear to auscultation and percussion. No rales, rhonchi or wheezes noted. No increased work of breathing, no retractions or nasal flaring. Abdomen/GI: Soft, non-tender, with normal bowel sounds. No distension or tympany. No guarding or rebound. No evidence of tenderness throughout. MS/ Extremity: Pulses equal, no cyanosis. Neurovascular intact. Full, normal range of motion. Neuro: Awake and alert, GCS 15, oriented to person, place, time, and situation. Cranial nerves II-XII grossly intact. Motor strength 5/5 in all extremities. Sensory grossly intact. Cerebellar exam normal. Normal gait. 13:54 Skin: injury, abrasion(s), small abrasion noted, moderate sized abrasion noted, of the right gluteal fold and right gluteus emigdio and gluteal cleft. Vital Signs: 13:52 BP 128 / 65; Pulse 95; Resp 17 S; Temp 98.5(TE); Pulse Ox 100% on R/A; Weight 146.96 kg ca1 (R); Height 5 ft. 4 in. (162.56 cm) (R); 14:50 BP 154 / 85; Pulse 93; Resp 16; Pulse Ox 100% on R/A; mt 15:50 BP 155 / 79; Pulse 94; Resp 16 S; Pulse Ox 100% on R/A; ca1 16:50 BP 158 / 76; Pulse 91; Resp 16 S; Pulse Ox 100% on R/A; ca1 17:33 BP 148 / 85; Pulse 93; Resp 16 S; Pulse Ox 100% on R/A; ca1 13:52 Body Mass Index 55.61 (146.96 kg, 162.56 cm) ca1 MDM: 13:48 Patient medically screened. kb 13:56 Data reviewed: vital signs, nurses notes. Data interpreted: Pulse oximetry: on room air kb is 100 %. Interpretation: normal. 13:57 Counseling: I had a detailed discussion with the patient and/or guardian regarding: the kb historical points, exam findings, and any diagnostic results supporting the discharge/admit diagnosis, the need for outpatient follow up, a family practitioner, to return to the emergency department if symptoms worsen or persist or if there are any questions or concerns that arise at home. 14:33 ED course: mild vaginal bleeding on reexamination. Will obtain US. Pt educated that she kb will need to follow up with [facility] for possible biopsy.. 15:08 ED course: US unavailable today. Educated pt and she said she will call Wednesday to get kb into her dr for vaginal bleeding.. 15:17 ED course: diagnostics reviewed from yesterday's visit. tiago 02/22 13:56 Order name: Wound Care; Complete Time: 14:29 kb Administered Medications: No medications were administered Disposition: 18:35 Co-signature as Attending Physician, Ekaterina Traylor MD. ma2 Disposition: 02/23/20 15:06 Discharged to Home. Impression: Abnormal uterine and vaginal bleeding, unspecified, Open wound of right buttock. - Condition is Stable. - Discharge Instructions: Wound Care, Abnormal Uterine Bleeding, [id number]. - Medication Reconciliation Form, Thank You Letter, Antibiotic Education, Prescription Opioid Use form. - Follow up: Emergency Department; When: As needed; Reason: Worsening of condition. Follow up: Private Physician; When: 2 - 3 days; Reason: Recheck today's complaints, Continuance of care, Re-evaluation by your physician. Signatures: Dispatcher [employer] EDDaniela France, LENI-C SOCIAL WORK COORDINATOR-Ekaterina Enriquez MD MD ma2 Mohini Shepherd RN RN ca1 Corrections: (The following items were deleted from the chart) 13:56 13:54 Constitutional: Negative for fever, chills, and weight loss, Cardiovascular: kb Negative for chest pain, palpitations, and edema, Respiratory: Negative for shortness of breath, cough, wheezing, and pleuritic chest pain, Abdomen/GI: Negative for abdominal pain, nausea, vomiting, diarrhea, and constipation, Back: Negative for injury and pain, MS/Extremity: Negative for injury and deformity, Neuro: Negative for headache, weakness, numbness, tingling, and seizure, kb 13:56 13:54 Skin: Positive for abrasion(s), of the gluteal cleft, right gluteus emigdio and kb right gluteal fold, kb 14:32 13:57 02/23/2020 13:57 Discharged to Home. Impression: Open wound of right buttock. kb Condition is Stable. Forms are Medication Reconciliation Form, Thank You Letter, Antibiotic Education, Prescription Opioid Use. Follow up: Emergency Department; When: As needed; Reason: Worsening of condition. Follow up: Private Physician; When: 2 - 3 days; Reason: Recheck today's complaints, Continuance of care, Re-evaluation by your physician. kb 17:34 15:06 02/23/2020 15:06 Discharged to Home. Impression: Abnormal uterine and vaginal ca1 bleeding, unspecified; Open wound of right buttock. Condition is Stable. Forms are Medication Reconciliation Form, Thank You Letter, Antibiotic Education, Prescription Opioid Use. Follow up: Emergency Department; When: As needed; Reason: Worsening of condition. Follow up: Private Physician; When: 2 - 3 days; Reason: Recheck today's complaints, Continuance of care, Re-evaluation by your physician. kb
[2020-02-23 19:01] VITALS: TEMP 98.5; O2SAT 100
[2020-02-23 19:12] VITALS: BP 148/85
== END 2020-02-23 17:34 | disposition home or self-care (01) ==
LOC: ER 13:30
DX: N93.9 Abnormal uterine and vaginal bleeding, unspecified (principal); S31.819A Unspecified open wound of right buttock, initial encounter; E11.9 Type 2 diabetes mellitus without complications; I50.9 Heart failure, unspecified; J44.9 Chronic obstructive pulmonary disease, unspecified; F41.9 Anxiety disorder, unspecified; Z88.0 Allergy status to penicillin; Z88.6 Allergy status to analgesic agent
CPT/HCPCS: 99284

== ENCOUNTER 2020-04-04 11:10 | Emergency (ER) | payer OTHER ==
--- OUTSIDE RECORDS SUMMARY | 2020-04-04 11:13 | XMS REPORT | Continuity of Care Document ---
:1950 Author Organization [facility] t Address [address] [place] [address] Care Team Providers Name Role Phone MADDI [...] Clinicians Facility Department ID 2019-09-01 2019-09-01 Outpatient RAUL CAMARENA RAD [id number] 08:32:00 23:59:00 MADDI [facility] Results This patient has no known results.
--- NOTE | 2020-04-04 12:19 | RAD REPORT ---
EXAM DESCRIPTION: RAD - Chest Single View - 04/04/2020 12:04 pm CLINICAL HISTORY: CHEST PAIN Chest pain. COMPARISON: Chest Single View dated 07/25/2019; Abdomen 1 View (KUB) dated 07/21/2019; Abdomen 1 View (KUB) dated 07/21/2019; Chest Single View dated 07/20/2019 FINDINGS: Portable technique limits examination quality. The lungs are grossly clear. The heart is moderately enlarged. Single lead pacer/defibrillator device present. IMPRESSION: No acute intrathoracic process suspected.
--- NOTE | 2020-04-04 12:19 | RAD REPORT ---
EXAM DESCRIPTION: CT - Head Brain Wo Cont - 04/04/2020 11:47 am CLINICAL HISTORY: MENTAL STATUS CHANGE Headache, drowsiness COMPARISON: No comparisonsHead Brain Wo Cont dated 07/20/2019; Head Brain Wo Cont dated 06/16/2019 TECHNIQUE: All CT scans are performed using dose optimization technique as appropriate and may inclu de automated exposure control or mA/KV adjustment according to patient size. FINDINGS: No intracranial hemorrhage, hydrocephalus or extra-axial fluid collection.Mild generalized brain atrophy.No areas of brain edema or evidence of midline shift. The paranasal sinuses and mastoids are clear. The calvarium is intact. IMPRESSION: No acute intracranial abnormality.
[2020-04-04 12:59] LABS: Absolute Lymphocytes (CBC) 1.2 K/uL (0.7-4.9); Basophils % 0.7 % (0-1.3); MPV 8.2 fL (7.6-11.3); RBC Red Blood Cell Count 3.67 M/uL (3.86-4.86)
[2020-04-04 13:05] LABS: Protime INR 1.84
[2020-04-04 13:10] LABS: Urine Blood 1+ (NEG); Urine Glucose NEGATIVE (NEG); Urine Protein TRACE (NEG); Urine Specific Gravity 1.015 (1.005-1.030); Urine pH 8.5 (5.0-7.0)
[2020-04-04 13:19] LABS: Albumin 2.4 g/dL (3.4-5.0); Bilirubin Direct 0.2 mg/dL (0-0.2); Bilirubin Total 0.5 mg/dL (0.2-1.0); Magnesium 2.3 mg/dL (1.8-2.4); Protein, Total 9.4 g/dL (6.4-8.2)
[2020-04-04 13:41] LABS: Urine Amorphous Sediment 1+ /HPF (NONE SEEN); Urine Bacteria 20-50 /HPF (<20); Urine RBC <5 /HPF (NONE SEEN)
--- NOTE | 2020-04-04 14:01 | ER ---
Nurse's Notes [facility] Name: Anita Harp Age: 70 yrs Sex: Female : 1950 Arrival Date: 04/04/2020 Time: 11:10 Bed 23 Private MD: Diagnosis: Urinary tract infection, site not specified;Hypokalemia Presentation: 04/04 11:11 Chief complaint:. Chief complaint: EMS states: Was getting out of vehicle for appt with dm5 urologist to have brito change. Pt reported getting nauseated so the dr. office sent her here. Coronavirus screen: Client denies travel out of the [place] in the last 14 days. nausea, Client presents with at least one sign or symptom that may indicate coronavirus-19. Standard/surgical mask placed on the client. Ebola Screen: Patient negative for fever greater than or equal to 101.5 degrees Fahrenheit, and additional compatible Ebola Virus Disease symptoms Patient denies exposure to infectious person. Patient denies travel to an Ebola-affected area in the 21 days before illness onset. No symptoms or risks identified at this time. Initial Sepsis Screen: Does the patient meet any 2 criteria? No. Patient's initial sepsis screen is negative. Does the patient have a suspected source of infection? No. Patient's initial sepsis screen is negative. Risk Assessment: Do you want to hurt yourself or someone else? Patient reports no desire to harm self or others. Onset of symptoms was April 04, 2020. 11:11 Method Of Arrival: EMS: [facility] 11:11 Acuity: [place] 3 dm5 Historical: - Allergies: 11:49 Aspirin; dm5 11:49 Ibuprofen; dm5 11:49 PENICILLINS; dm5 - Home Meds: 11:49 amitriptyline 10 mg Oral tab 1 tab 3 times per day [Active]; carvedilol 12.5 mg Oral dm5 tab 1 tab 2 times per day [Active]; furosemide 20 mg Oral tab 1 tab once daily [Active]; gabapentin 300 mg Oral cap 1 cap 3 times per day [Active]; metformin 500 mg Oral TbER 2 tabs once daily [Active]; potassium chloride 20 mEq Oral TbER 1 tab once daily [Active]; valsartan 160 mg Oral tab 1 tab once daily [Active]; venlafaxine 150 mg Oral cp24 1 cap once daily [Active]; - PMHx: 11:49 Anxiety; CHF; claustrophobia; COPD; Diabetes - NIDDM; Panic Attacks; Rheumatoid 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 Nutritional screening: No deficits noted. vg1 Tuberculosis screening: No symptoms or risk factors identified. Fall Risk No fall in past 12 months (0 pts). No secondary diagnosis (0 pts). IV access (20 points). Ambulatory Aid- None/Bed Rest/Nurse Assist (0 pts). Gait- Normal/Bed Rest/Wheelchair (0 pts) Mental Status- Oriented to own ability (0 pts). Total Hernández Fall Scale indicates No Risk (0-24 pts). Assessment: 12:06 General: Appears in no apparent distress. comfortable, Behavior is calm, cooperative. vg1 Pain: Denies pain. Neuro: Level of Consciousness is awake, alert, obeys commands, Oriented to person, place, time, situation. Cardiovascular: Patient's skin is warm and dry. Respiratory: Airway is patent Respiratory effort is even, unlabored, Respiratory pattern is regular, symmetrical. GI: Abdomen is round PEG tube in place, clamped. Site with drainage. Reports nausea, Patient currently denies diarrhea, vomiting. : Brito in place to gravity drainage Reports has had brito for about 3-4 months. EENT: No signs and/or symptoms were reported regarding the EENT system. Derm: Skin is pink, warm \T\ dry. Musculoskeletal: Circulation, motion, and sensation intact. Musculoskeletal: Reports is bedridden. 14:00 Reassessment: Patient appears in no apparent distress at this time. Patient is alert, vg1 oriented x 3, equal unlabored respirations, skin warm/dry/pink. Patient denies pain at this time. Patient states feeling better. 15:00 Reassessment: Patient appears in no apparent distress at this time. Patient is alert, vg1 oriented x 3, equal unlabored respirations, skin warm/dry/pink. Patient up for d/c. Awaiting transportation to home. Patient denies pain at this time. 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 vg1 Vital Signs: 12:00 BP 106 / 76; Pulse 90; Resp 18; Pulse Ox 98% on R/A; vg1 13:00 BP 117 / 77; Pulse 91; Resp 18; Pulse Ox 93% on R/A; vg1 14:00 BP 137 / 72; Pulse 85; Resp 18; Pulse Ox 99% on R/A; vg1 15:00 BP 119 / 73; Pulse 80; Resp 18; Pulse Ox 100% on R/A; vg1 ED Course: 11:10 Patient arrived in ED. dm5 11:13 Triage completed. dm5 11:23 Vimal Ngo PA is PHCP. jr8 11:23 Saad Navarrete MD is Attending Physician. jr8 11:47 CT Head Brain wo Cont In Process Unspecified. EDMS 11:48 Virgie Dean, RN is Primary Nurse. dm5 11:56 Xray at bedside. vg1 11:57 Primary Nurse role handed off by Virgie Dean, RN vg1 11:57 Maria Luisa Ruiz, RN is Primary Nurse. vg1 12:05 XRAY Chest (1 view) In Process Unspecified. EDMS 12:10 Patient has correct armband on for positive identification. Bed in low position. Call vg1 light in reach. Side rails up X2. monitoring engineer on. Pulse ox on. NIBP on. 12:35 EKG done, by ED staff, reviewed by Vimal RIBEIRO. jp3 12:42 Inserted saline lock: 20 gauge in left forearm, using aseptic technique. Blood jp3 collected. 12:42 Initial lab(s) drawn, by nv, sent to lab. Patient maintains SpO2 saturation greater jp3 than 95% on room air. 12:45 Urine collected: Brito catheter specimen, cloudy, sahn colored. jp3 14:52 Cleaned of incontinence. jp3 15:00 Changed patient brief with assistance from vehicle monitor technician. Luba care with wipes. Applied cream vg1 calamaze to buttocks; patient had PITO shear tears.. 15:27 No provider procedures requiring assistance completed. IV discontinued, intact, vg1 bleeding controlled, No redness/swelling at site. Pressure dressing applied. Administered Medications: 13:55 Drug: Potassium Chloride 40 mEq Route: PO; vg1 14:37 Follow up: Response: No adverse reaction vg1 15:10 Drug: Rocephin 1 grams Route: IV; Rate: calculated rate; Site: right forearm; vg1 15:32 Follow up: Response: No adverse reaction; IV Status: Completed infusion vg1 Outcome: 14:00 Discharge ordered by MD. hartley 15:27 Discharged to home via ambulance. vg1 15:27 Condition: stable 15:27 Discharge instructions given to patient, Instructed on discharge instructions, follow up and referral plans. medication usage, Demonstrated understanding of instructions, follow-up care, medications, Prescriptions given X 1. 16:25 Patient left the ED. vg1 Addendum: 04/10/2020 10:50 Addendum: Culture Results: Positive urine culture. Bacteria is resistant to, has a a5 intermediate sensitivity, or is not tested against prescribed antibiotics. Report given to SILVINA for further evaluation and then to gaming cashier for follow up with patient. Phone call Attempt #1 left voice mail. Signatures: Dispatcher [employer] EDVirgie Bruner, RN RN dm5 Elvi Bee, RN RN aa5 Vimal Ngo PA PA jr8 Benji Greer Victoria RN RN vg1
--- NOTE | 2020-04-04 14:02 | EDPHYS ---
Physician Documentation [facility] Name: Anita Harp Age: 70 yrs Sex: Female : 1950 Arrival Date: 04/04/2020 Time: 11:10 Bed 23 Private MD: ED Physician Saad Navarrete HPI: 04/04 13:07 This 70 yrs old Black Female presents to ER via EMS with complaints of Nausea. jr8 13:07 The patient presents to the emergency department with nausea. Onset: The jr8 symptoms/episode began/occurred acutely, today. Possible causes: unknown. The symptoms are aggravated by nothing. The symptoms are alleviated by nothing. Associated signs and symptoms: The patient has no apparent associated signs or symptoms. Severity of symptoms: At their worst the symptoms were mild in the emergency department the symptoms are unchanged. The patient has not experienced similar symptoms in the past. The patient has not recently seen a physician. Patient while going to urology appointment today became nauseated. Was sent for further evaluation. While in ED patient stated that she has also concerned that she may have metal left in her from unknown surgery in her head and chest. Stated that she has pulled screws out of her chest and ears. Patient currently A\T\O x 4. Historical: - Allergies: 11:49 Aspirin; dm5 11:49 Ibuprofen; dm5 11:49 PENICILLINS; dm5 - Home Meds: 11:49 amitriptyline 10 mg Oral tab 1 tab 3 times per day [Active]; carvedilol 12.5 mg Oral dm5 tab 1 tab 2 times per day [Active]; furosemide 20 mg Oral tab 1 tab once daily [Active]; gabapentin 300 mg Oral cap 1 cap 3 times per day [Active]; metformin 500 mg Oral TbER 2 tabs once daily [Active]; potassium chloride 20 mEq Oral TbER 1 tab once daily [Active]; valsartan 160 mg Oral tab 1 tab once daily [Active]; venlafaxine 150 mg Oral cp24 1 cap once daily [Active]; - PMHx: 11:49 Anxiety; CHF; claustrophobia; COPD; Diabetes - NIDDM; Panic Attacks; Rheumatoid 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 13:08 Neuro: Negative for headache, weakness, numbness, tingling, and seizure. 13:08 Abdomen/GI: Positive for nausea, Negative for abdominal pain, vomiting, diarrhea, constipation, abdominal cramps, abdominal distension. Exam: 13:08 Eyes: Pupils equal round and reactive to light, extra-ocular motions intact. Lids and jr8 lashes normal. Conjunctiva and sclera are non-icteric and not injected. Cornea within normal limits. Periorbital areas with no swelling, redness, or edema. ENT: Nares patent. No nasal discharge, no septal abnormalities noted. Tympanic membranes are normal and external auditory canals are clear. Oropharynx with no redness, swelling, or masses, exudates, or evidence of obstruction, uvula midline. Mucous membranes moist. Neck: Trachea midline, no thyromegaly or masses palpated, and no cervical lymphadenopathy. Supple, full range of motion without nuchal rigidity, or vertebral point tenderness. No Meningismus. Cardiovascular: Regular rate and rhythm with a normal S1 and S2. No gallops, murmurs, or rubs. Normal PMI, no JVD. No pulse deficits. Respiratory: Lungs have equal breath sounds bilaterally, clear to auscultation and percussion. No rales, rhonchi or wheezes noted. No increased work of breathing, no retractions or nasal flaring. Abdomen/GI: Soft, non-tender, with normal bowel sounds. No distension or tympany. No guarding or rebound. No evidence of tenderness throughout. Back: No spinal tenderness. No costovertebral tenderness. Full range of motion. Skin: Warm, dry with normal turgor. Normal color with no rashes, no lesions, and no evidence of cellulitis. 13:08 MS/ Extremity: Pulses equal, no cyanosis. Neurovascular intact. 13:08 Neuro: Orientation: to person, place, time \T\ situation. Mentation: is normal, Memory: is normal, Cranial nerves: CN I not tested, CN II- XII are normal as tested, extraocular movements are intact, Speech is clear and appropriate. Tongue strength is normal, Cerebellar function: normal finger to nose testing, Motor: Strength is 3/5 in the right leg and left leg, Sensation: no obvious gross deficits, seizure activity, is not displayed by the patient, Abnormal movements: there are no abnormal movements. 13:11 ECG was reviewed by the Attending Physician. 8 Vital Signs: 12:00 BP 106 / 76; Pulse 90; Resp 18; Pulse Ox 98% on R/A; vg1 13:00 BP 117 / 77; Pulse 91; Resp 18; Pulse Ox 93% on R/A; vg1 14:00 BP 137 / 72; Pulse 85; Resp 18; Pulse Ox 99% on R/A; vg1 15:00 BP 119 / 73; Pulse 80; Resp 18; Pulse Ox 100% on R/A; vg1 MDM: 11:23 Patient medically screened. jr8 14:00 Data reviewed: vital signs, nurses notes, lab test result(s), EKG, radiologic studies, jr CT scan, plain films. Data interpreted: Pulse oximetry: on room air is 100 %. Interpretation: normal. Counseling: I had a detailed discussion with the patient and/or guardian regarding: the historical points, exam findings, and any diagnostic results supporting the discharge/admit diagnosis, lab results, radiology results, the need for outpatient follow up, a family practitioner, to return to the emergency department if symptoms worsen or persist or if there are any questions or concerns that arise at home. 04/04 11:24 Order name: Basic Metabolic Panel; Complete Time: 13:36 04/04 11:24 Order name: CBC with Diff; Complete Time: 13:05 04/04 11:24 Order name: LFT's; Complete Time: 13:36 04/04 11:24 Order name: Magnesium; Complete Time: 13:36 04/04 11:24 Order name: NT PRO-BNP; Complete Time: 13:36 04/04 11:24 Order name: PT-INR; Complete Time: 13:07 04/04 11:24 Order name: XRAY Chest (1 view); Complete Time: 12:37 04/04 11:24 Order name: Urine Microscopic Only; Complete Time: 13:59 04/04 11:24 Order name: Lipase; Complete Time: 13:36 04/04 11:24 Order name: CT Head Brain wo Cont; Complete Time: 12:37 04/04 13:00 Order name: Urine Dipstick--Ancillary (enter results); Complete Time: 13:36 [facility] 04/04 13:42 Order name: Urine Culture EDFL 04/04 11:24 Order name: EKG; Complete Time: 11:25 04/04 11:24 Order name: Cardiac monitoring; Complete Time: 12:35 04/04 11:24 Order name: EKG - Nurse/Tech; Complete Time: 12:35 04/04 11:24 Order name: IV Saline Lock; Complete Time: 12:56 04/04 11:24 Order name: Labs collected and sent; Complete Time: 12:56 04/04 11:24 Order name: O2 Per Protocol; Complete Time: 12:35 04/04 11:24 Order name: O2 Sat Monitoring; Complete Time: 12:35 04/04 11:24 Order name: Urine Dipstick-Ancillary (obtain specimen); Complete Time: 12:56 8 EC:11 Rate is 88 beats/min. Rhythm is regular, Normal Sinus Rhythm. Left axis deviation jr8 noted. NH interval is normal at 172 msec. QRS interval is normal at 104 msec. QT interval is normal at 476 msec. No Q waves. T waves are Inverted in leads V1, V2. No ST changes noted. Clinical impression: NSR w/ Non-specific ST/T Changes. Interpreted by me. Reviewed by me. Administered Medications: 13:55 Drug: Potassium Chloride 40 mEq Route: PO; vg1 14:37 Follow up: Response: No adverse reaction vg1 15:10 Drug: Rocephin 1 grams Route: IV; Rate: calculated rate; Site: right forearm; vg1 15:32 Follow up: Response: No adverse reaction; IV Status: Completed infusion vg1 Disposition: 17:45 Co-signature as Attending Physician, Saad Navarrete MD I agree with the assessment and kdr plan of care. Disposition: 04/04/20 14:00 Discharged to Home. Impression: Urinary tract infection, site not specified, Hypokalemia. - Condition is Stable. - Discharge Instructions: Urinary Tract Infection, Adult, Hypokalemia. - Prescriptions for Macrobid 100 mg Oral Capsule - take 1 capsule by ORAL route every 12 hours for 7 days; 14 capsule. - SBAR form, Medication Reconciliation Form, Thank You Letter, Antibiotic Education, Prescription Opioid Use form. - Follow up: Private Physician; When: 2 - 3 days; Reason: Recheck today's complaints, Continuance of care, Re-evaluation by your physician. - Problem is new. - Symptoms have improved. Signatures: Dispatcher [employer] EDMS Virgie Dean, RN RN dm5 Saad Navarrete MD MD kdr Vimal Ngo PA PA jr8 Maria Luisa Ruiz RN RN vg1 Corrections: (The following items were deleted from the chart) 13:09 13:07 Patient stated that she has also concerned that she may have metal left in her jr8 from unknown surgery in her head and chest. Stated that she has pulled screws out of her chest and ears. Patient currently A\T\O x 4. jr8 16:25 14:00 04/04/2020 14:00 Discharged to Home. Impression: Urinary tract infection, site vg1 not specified; Hypokalemia. Condition is Stable. Forms are Medication Reconciliation Form, Thank You Letter, Antibiotic Education, Prescription Opioid Use. Follow up: Private Physician; When: 2 - 3 days; Reason: Recheck today's complaints, Continuance of care, Re-evaluation by your physician. Problem is new. Symptoms have improved. jr8
[2020-04-04] MEDS ORDERED: POTASSIUM CL SA 10 MEQ TAB PO ONE (14:05)
[2020-04-04] MEDS ORDERED: CEFTRIAXONE/SWI 1gm 1 GM/10 ML SYR ONE (14:59)
[2020-04-04 17:11] VITALS: BP 119/73; O2SAT 100
--- NOTE | 2020-04-05 22:35 | EKG ---
Test Date: 2020-04-04 Test Time: 12:19:03 Compliance Mgr: ANGELES MEASUREMENT RESULTS: Intervals: Rate: 88 HI: 172 QRSD: 104 QT: 394 QTc: 476 [place]: P: 59 HI: 172 QRS: -42 T: 88 INTERPRETIVE STATEMENTS: Normal sinus rhythm Left axis deviation Nonspecific ST and T wave abnormality Abnormal ECG Compared to ECG 07/18/2019 22:47:41 Left-axis deviation now present ST (T wave) deviation still present Electronically Signed On 04-05-20 22:29:59 SPECIAL EDUCATION TEACHING ASSISTANT by Dustin Sutton
== END 2020-04-04 16:25 | disposition home or self-care (01) ==
LOC: ER 11:10
DX: N39.0 Urinary tract infection, site not specified (principal); E87.6 Hypokalemia; E11.9 Type 2 diabetes mellitus without complications; I50.9 Heart failure, unspecified; F41.9 Anxiety disorder, unspecified; Z88.0 Allergy status to penicillin; Z88.6 Allergy status to analgesic agent
CPT/HCPCS: 96365; 93005; 87088; 85025; 87086; 80048; 36415; 83735; 85610; 80076; 87077; 87186; 83690; 83880; 70450; 71045; 99285; J0696; 81003; 81015

== ENCOUNTER 2020-04-15 01:33 | Emergency (ER) | payer OTHER, MEDICAID ==
--- OUTSIDE RECORDS SUMMARY | 2020-04-15 01:35 | XMS REPORT | Continuity of Care Document ---
:1950 Author Organization [facility] Address [address] [place] [address] Care Team Providers Name Role Phone SARAH Attending Clinician Unavailable SARAH Admitting Clinician Unavailable Problems This patient has no known problems. Allergies, Adverse Reactions, Alerts This patient has no known allergies or adverse reactions. Medications This patient has no known medications. Procedures This patient has no known procedures. Encounters Start End Encounter Admission Attending Care Care Encounter Source Date/Time Date/Time Type Type Clinicians Facility Department ID 2019-09-01 2019-09-01 Outpatient RAUL CAMARENA RAD [id number] 08:32:00 23:59:00 [facility] Results This patient has no known results.
--- NOTE | 2020-04-15 02:35 | EDPHYS ---
Physician Documentation [facility] Name: Anita Harp Age: 70 yrs Sex: Female : 1950 Arrival Date: 04/15/2020 Time: 01:38 Bed 2 Private MD: ED Physician Damian Deshpande HPI: 04/15 01:58 This 70 yrs old Black Female presents to ER via EMS with complaints of change of brito mh7 catheter. 01:59 The patient presents with Brito catheter leaking. Onset: The symptoms/episode mh7 began/occurred last night. Modifying factors: The symptoms are alleviated by nothing, the symptoms are aggravated by nothing. Associated signs and symptoms: Pertinent negatives: constipation, cramping, diarrhea, dyspareunia, dysuria, fever, hematuria, nausea, urinary frequency, vaginal bleeding, vaginal discharge, vomiting. Severity of symptoms: At their worst the symptoms were mild, last night, in the emergency department the symptoms are unchanged. Historical: - Allergies: 01:43 Aspirin; rr5 01:43 Ibuprofen; rr5 01:43 PENICILLINS; rr5 - Home Meds: 01:43 amitriptyline 10 mg Oral tab 1 tab 3 times per day [Active]; carvedilol 12.5 mg Oral rr5 tab 1 tab 2 times per day [Active]; furosemide 20 mg Oral tab 1 tab once daily [Active]; gabapentin 300 mg Oral cap 1 cap 3 times per day [Active]; potassium chloride 20 mEq Oral TbER 1 tab once daily [Active]; metformin 500 mg Oral TbER 2 tabs once daily [Active]; valsartan 160 mg Oral tab 1 tab once daily [Active]; venlafaxine 150 mg Oral cp24 1 cap once daily [Active]; - PMHx: 01:43 Anxiety; CHF; claustrophobia; COPD; Diabetes - NIDDM; Panic Attacks; Rheumatoid rr5 Arthritis; - PSHx: 01:43 defibrillator; rr5 - Immunization history:: Adult Immunizations up to date. - Social history:: Smoking status: unknown. ROS: 01:59 Constitutional: Negative for fever, chills, and weight loss, Eyes: Negative for injury, mh7 pain, redness, and discharge, ENT: Negative for injury, pain, and discharge, Neck: Negative for injury, pain, and swelling, Cardiovascular: Negative for chest pain, palpitations, and edema, Respiratory: Negative for shortness of breath, cough, wheezing, and pleuritic chest pain, Abdomen/GI: Negative for abdominal pain, nausea, vomiting, diarrhea, and constipation, Back: Negative for injury and pain, MS/Extremity: Negative for injury and deformity, Skin: Negative for injury, rash, and discoloration, Neuro: Negative for headache, weakness, numbness, tingling, and seizure, Psych: Negative for depression, anxiety, suicide ideation, homicidal ideation, and hallucinations, Allergy/Immunology: Negative for hives, rash, and allergies, Endocrine: Negative for neck swelling, polydipsia, polyuria, polyphagia, and marked weight changes, Hematologic/Lymphatic: Negative for swollen nodes, abnormal bleeding, and unusual bruising. Exam: 01:59 Constitutional: This is a well developed, well nourished patient who is awake, alert, mh7 and in no acute distress. Head/Face: Normocephalic, atraumatic. Eyes: Pupils equal round and reactive to light, extra-ocular motions intact. Lids and lashes normal. Conjunctiva and sclera are non-icteric and not injected. Cornea within normal limits. Periorbital areas with no swelling, redness, or edema. Neck: Trachea midline, no thyromegaly or masses palpated, and no cervical lymphadenopathy. Supple, full range of motion without nuchal rigidity, or vertebral point tenderness. No Meningismus. Chest/axilla: Normal chest wall appearance and motion. Nontender with no deformity. No lesions are appreciated. Cardiovascular: Regular rate and rhythm with a normal S1 and S2. No gallops, murmurs, or rubs. Normal PMI, no JVD. No pulse deficits. Respiratory: Lungs have equal breath sounds bilaterally, clear to auscultation and percussion. No rales, rhonchi or wheezes noted. No increased work of breathing, no retractions or nasal flaring. Abdomen/GI: Soft, non-tender, with normal bowel sounds. No distension or tympany. No guarding or rebound. No evidence of tenderness throughout. Back: No spinal tenderness. No costovertebral tenderness. Full range of motion. Skin: Warm, dry with normal turgor. Normal color with no rashes, no lesions, and no evidence of cellulitis. MS/ Extremity: Pulses equal, no cyanosis. Neurovascular intact. Full, normal range of motion. Psych: Awake, alert, with orientation to person, place and time. Behavior, mood, and affect are within normal limits. 02:38 Neuro: Orientation: is normal, Mentation: is normal, Memory: is normal, Cranial nerves: 7 CN II- XII are normal as tested, Cerebellar function: is grossly normal, Motor: no acute changes, moves all fours, Sensation: is normal, Gait: not tested. seizure activity, is not displayed by the patient, Abnormal movements: there are no abnormal movements. Vital Signs: 01:39 BP 117 / 54; Pulse 89; Resp 14; Temp 98.2; Weight 157.85 kg; Height 5 ft. 4 in. (162.56 rr5 cm); Pain 0/10; 02:40 BP 110 / 62; Pulse 75; Resp 19; Pulse Ox 99% ; rr5 03:03 BP 112 / 65; Pulse 70; Resp 16; Pulse Ox 99% ; rr5 01:39 Body Mass Index 59.73 (157.85 kg, 162.56 cm) rr5 MDM: 02:31 Differential diagnosis: Brito catheter malfunction, Dislodged Brito catheter. Data 7 reviewed: vital signs, nurses notes. Counseling: I had a detailed discussion with the patient and/or guardian regarding: the historical points, exam findings, and any diagnostic results supporting the discharge/admit diagnosis, the need for outpatient follow up, to return to the emergency department if symptoms worsen or persist or if there are any questions or concerns that arise at home. Response to treatment: the patient's symptoms have resolved after treatment, the patient's blood pressure is in an acceptable range, mental status has returned to baseline, the patient no longer shows bradycardia, the patient is not short of breath, the patient is not tachycardic, the patient's pain is gone, the patient's temperature has normalized. ED course: Brito catheter changed and functioning well. 02:34 Patient medically screened. mh7 04/15 02:42 Order name: Latricia; Complete Time: 02:42 rr5 Administered Medications: No medications were administered Disposition: 04/15/20 02:34 Discharged to Home. Impression: Brito Catheter Malfunction. - Condition is Stable. - Discharge Instructions: Brito Catheter Care, Adult, [id number]. - Medication Reconciliation Form, Thank You Letter, Antibiotic Education, Prescription Opioid Use form. - Follow up: Private Physician; When: 1 - 2 days; Reason: Worsening of condition, Recheck today's complaints, Continuance of care, Re-evaluation by your physician. - Problem is new. - Symptoms have improved. Signatures: Hardik Alex RN RN rr5 Damian Deshpande MD MD mh7 Corrections: (The following items were deleted from the chart) 02:00 01:58 The patient presents with mh7 mh7 03:04 02:34 04/15/2020 02:34 Discharged to Home. Impression: Brito Catheter Malfunction. rr5 Condition is Stable. Forms are Medication Reconciliation Form, Thank You Letter, Antibiotic Education, Prescription Opioid Use. Follow up: Private Physician; When: 1 - 2 days; Reason: Worsening of condition, Recheck today's complaints, Continuance of care, Re-evaluation by your physician. Problem is new. Symptoms have improved. mh7
--- NOTE | 2020-04-15 02:35 | ER ---
Nurse's Notes [facility] Name: Anita Harp Age: 70 yrs Sex: Female : 1950 Arrival Date: 04/15/2020 Time: 01:38 Bed 2 Private MD: Diagnosis: Brito Catheter Malfunction Presentation: 04/15 01:39 Chief complaint: EMS states: patient complaint her brito catheter fell out. Coronavirus rr5 screen: Client denies travel out of the [place] in the last 14 days. At this time, the client does not indicate any symptoms associated with coronavirus-19. Ebola Screen: Patient negative for fever greater than or equal to 101.5 degrees Fahrenheit, and additional compatible Ebola Virus Disease symptoms Patient denies exposure to infectious person. Patient denies travel to an Ebola-affected area in the 21 days before illness onset. Initial Sepsis Screen: Does the patient meet any 2 criteria? No. Patient's initial sepsis screen is negative. Does the patient have a suspected source of infection? Yes: Dysuria/Frequency/Urgency/UTI. Risk Assessment: Do you want to hurt yourself or someone else? Patient reports no desire to harm self or others. Onset of symptoms was April 15, 2020. 01:39 Method Of Arrival: EMS: [facility] rr5 01:39 Acuity: [place] 4 rr5 Historical: - Allergies: 01:43 Aspirin; rr5 01:43 Ibuprofen; rr5 01:43 PENICILLINS; rr5 - Home Meds: 01:43 amitriptyline 10 mg Oral tab 1 tab 3 times per day [Active]; carvedilol 12.5 mg Oral rr5 tab 1 tab 2 times per day [Active]; furosemide 20 mg Oral tab 1 tab once daily [Active]; gabapentin 300 mg Oral cap 1 cap 3 times per day [Active]; potassium chloride 20 mEq Oral TbER 1 tab once daily [Active]; metformin 500 mg Oral TbER 2 tabs once daily [Active]; valsartan 160 mg Oral tab 1 tab once daily [Active]; venlafaxine 150 mg Oral cp24 1 cap once daily [Active]; - PMHx: 01:43 Anxiety; CHF; claustrophobia; COPD; Diabetes - NIDDM; Panic Attacks; Rheumatoid rr5 Arthritis; - PSHx: 01:43 defibrillator; rr5 - Immunization history:: Adult Immunizations up to date. - Social history:: Smoking status: unknown. Screenin:18 Abuse screen: Denies threats or abuse. Denies injuries from another. Nutritional mg2 screening: No deficits noted. Tuberculosis screening: No symptoms or risk factors identified. Fall Risk None identified. Assessment: 02:17 General: Appears in no apparent distress. comfortable, Behavior is calm, cooperative. mg2 Pain: Denies pain. Neuro: Level of Consciousness is awake, alert, obeys commands, Oriented to person, place, time, situation. Cardiovascular: Capillary refill < 3 seconds Patient's skin is warm and dry. Respiratory: Airway is patent Respiratory effort is even, unlabored, Respiratory pattern is regular, symmetrical. GI: No signs and/or symptoms were reported involving the gastrointestinal system. : Urine is cloudy, Reports blocked urine catheter. EENT: No signs and/or symptoms were reported regarding the EENT system. Derm: Skin is intact, is healthy with good turgor, Skin is pink, warm \T\ dry. normal. Musculoskeletal: Circulation, motion, and sensation intact. Capillary refill < 3 seconds. 02:40 Reassessment: Patient appears in no apparent distress at this time. Patient is alert, rr5 oriented x 3, equal unlabored respirations, skin warm/dry/pink. discharge instruction given and explained without complaints made. 03:02 Reassessment: Patient appears in no apparent distress at this time. Patient is alert, rr5 oriented x 3, equal unlabored respirations, skin warm/dry/pink. awake alert vital signs taken and recorded. report given to [facility] by nikita HAWTHORNE. Vital Signs: 01:39 BP 117 / 54; Pulse 89; Resp 14; Temp 98.2; Weight 157.85 kg; Height 5 ft. 4 in. (162.56 rr5 cm); Pain 0/10; 02:40 BP 110 / 62; Pulse 75; Resp 19; Pulse Ox 99% ; rr5 03:03 BP 112 / 65; Pulse 70; Resp 16; Pulse Ox 99% ; rr5 01:39 Body Mass Index 59.73 (157.85 kg, 162.56 cm) rr5 ED Course: 01:38 Patient arrived in ED. rr5 01:40 Damian Deshpande MD is Attending Physician. mh7 01:41 Triage completed. rr5 02:18 Patient has correct armband on for positive identification. Pulse ox on. NIBP on. Door mg2 closed. Warm blanket given. 02:18 Arm band placed on. mg2 02:18 No provider procedures requiring assistance completed. Brito cath inserted, using mg2 sterile technique, 18 Fr., by me, balloon inflated. Patient did not have IV access during this emergency room visit. 02:26 Hardik Alex, RN is Primary Nurse. rr5 02:40 Wound care: to bed sore located on right gluteus emigdio was cleaned with Betadine, rr5 dressed with Neosporin, 4X4s, Patient tolerated well. Administered Medications: No medications were administered Outcome: 02:34 Discharge ordered by MD. 7 02:41 Discharged to home via ambulance. rr5 02:41 Condition: stable 02:41 Discharge instructions given to patient, Instructed on discharge instructions, follow up and referral plans. Demonstrated understanding of instructions, follow-up care. 03:04 Patient left the ED. rr5 Signatures: Oswaldo Perez RN RN [facility] Hardik Alex RN RN rr5 Damian Deshpande MD MD [facility] Corrections: (The following items were deleted from the chart) 02:41 01:39 BP 117 / 54; Resp 14bpm; Temp 98.2F; 157.85 kg; Height 5 ft. 4 in.; BMI: 59.7; rr5 Pain 0/10; rr5
[2020-04-15 03:08] VITALS: TEMP 98.2
[2020-04-15 03:09] VITALS: O2SAT 99
[2020-04-15 03:10] VITALS: BP 112/65
== END 2020-04-15 03:04 | disposition home or self-care (01) ==
LOC: ER 01:33
DX: T83.031A Leakage of indwelling urethral catheter, initial encounter (principal); I50.9 Heart failure, unspecified; J44.9 Chronic obstructive pulmonary disease, unspecified; E11.9 Type 2 diabetes mellitus without complications; Z79.84 Long term (current) use of oral hypoglycemic drugs; M06.9 Rheumatoid arthritis, unspecified; F41.0 Panic disorder [episodic paroxysmal anxiety]
CPT/HCPCS: 51702; 99284

== ENCOUNTER 2020-04-21 00:18 | Emergency (ER) | payer OTHER ==
--- OUTSIDE RECORDS SUMMARY | 2020-04-21 00:20 | XMS REPORT | Continuity of Care Document ---
:1950 Author Organization [facility] t Address [address] [place] [address] Care Team Providers Name Role Phone SARAH [...] ID 2019-09-01 2019-09-01 Outpatient RAUL CAMARENA RAD [id number] 08:32:00 23:59:00 [facility] Results This patient has no known results.
--- NOTE | 2020-04-21 02:11 | ER ---
Nurse's Notes [facility] Name: Anita Harp Age: 70 yrs Sex: Female : 1950 Arrival Date: 04/21/2020 Time: 00:27 Bed 5 Private MD: Diagnosis: Dislodged Brito Catheter Presentation: 04/21 00:28 Coronavirus screen: Client denies travel out of the [place] in the last 14 days. Ebola rv Screen: No symptoms or risks identified at this time. Initial Sepsis Screen: Does the patient meet any 2 criteria? No. Patient's initial sepsis screen is negative. Does the patient have a suspected source of infection? No. Patient's initial sepsis screen is negative. Risk Assessment: Do you want to hurt yourself or someone else? Patient reports no desire to harm self or others. Onset of symptoms is unknown. 00:28 Method Of Arrival: EMS: [facility] rv 00:28 Acuity: [place] 4 rv 00:28 Chief complaint: EMS states: Reported brito catheter was leaking. Coronavirus screen: ea At this time, the client does not indicate any symptoms associated with coronavirus-19. Historical: - Allergies: 00:29 Aspirin; rv 00:29 Ibuprofen; rv 00:29 PENICILLINS; rv - PMHx: 00:29 Anxiety; CHF; claustrophobia; COPD; Diabetes - NIDDM; Panic Attacks; Rheumatoid rv Arthritis; - Immunization history:: Adult Immunizations up to date. - Social history:: Smoking status: unknown. Screenin:29 Abuse screen: Denies threats or abuse. Nutritional screening: No deficits noted. ea Tuberculosis screening: No symptoms or risk factors identified. Fall Risk None identified. Assessment: 00:30 General: Appears in no apparent distress. Behavior is calm, cooperative, appropriate ea for age. Pain: Denies pain. Neuro: Level of Consciousness is awake, alert, obeys commands, Oriented to person, place, time, situation. Cardiovascular: Patient's skin is warm and dry. Respiratory: Airway is patent Respiratory effort is even, unlabored, Respiratory pattern is regular, symmetrical. GI:. : Brito in place to gravity drainage. Derm: Skin is pink, warm \T\ dry. 01:48 Reassessment: Patient and/or family updated on plan of care and expected duration. Pain ea level reassessed. Patient is alert, oriented x 3, equal unlabored respirations, skin warm/dry/pink. Vital Signs: 00:30 BP 120 / 70; Pulse 60; Resp 18; Pulse Ox 98% ; ea 01:30 BP 118 / 72; Pulse 80; Resp 18; Pulse Ox 98% ; ea 02:30 BP 122 / 80; Pulse 98; Resp 18; Pulse Ox 99% ; ea ED Course: 00:27 Patient arrived in ED. rv 00:28 Peggy Meyer, RN is Primary Nurse. ea 00:29 Triage completed. rv 00:29 Arm band placed on right wrist. Patient placed in the treatment room, on a stretcher, rv Patient notified of wait time. 00:29 Patient has correct armband on for positive identification. Bed in low position. Call ea light in reach. Side rails up X2. Pulse ox on. NIBP on. 00:51 Damian Deshpande MD is Attending Physician. [facility] 01:47 Brito cath inserted, using sterile technique, 18 Fr., by ri, balloon inflated, to ea gravity drainage. 01:48 No provider procedures requiring assistance completed. ea 02:46 Patient did not have IV access during this emergency room visit. ea Administered Medications: No medications were administered Outcome: 02:10 Discharge ordered by . melyssa 02:44 Discharged to home [facility] ea 02:44 Condition: stable 02:44 Discharge instructions given to patient, Instructed on discharge instructions, follow up and referral plans. 02:44 Demonstrated understanding of instructions. 02:44 Demonstrated understanding of follow-up care. 02:49 Patient left the ED. ea Signatures: Peggy Meyer RN RN ea Vicente, Ronaldo RN RN Damian Amor MD MD 7
--- NOTE | 2020-04-21 02:12 | EDPHYS ---
Physician Documentation [facility] Name: Anita Harp Age: 70 yrs Sex: Female : 1950 Arrival Date: 04/21/2020 Time: 00:27 Bed 5 Private MD: ED Physician Damian Deshpande HPI: 04/21 02:05 This 70 yrs old Black Female presents to ER via EMS with complaints of Rome Catheter mh7 Not Draining. 02:05 The patient presents with Rome Catheter Not Draining. Onset: The symptoms/episode mh7 began/occurred last night. Modifying factors: The symptoms are alleviated by nothing, the symptoms are aggravated by nothing. Associated signs and symptoms: Pertinent negatives: constipation, cramping, diarrhea, dyspareunia, dysuria, fever, hematuria, nausea, urinary frequency, vaginal bleeding, vaginal discharge, vomiting. Severity of symptoms: At their worst the symptoms were moderate, last night, in the emergency department the symptoms are unchanged. The patient has experienced similar episodes in the past, multiple times. Historical: - Allergies: 00:29 Aspirin; rv 00:29 Ibuprofen; rv 00:29 PENICILLINS; rv - PMHx: 00:29 Anxiety; CHF; claustrophobia; COPD; Diabetes - NIDDM; Panic Attacks; Rheumatoid rv Arthritis; - Immunization history:: Adult Immunizations up to date. - Social history:: Smoking status: unknown. ROS: 02:05 Constitutional: Negative for fever, chills, and weight loss, Eyes: Negative for injury, mh7 pain, redness, and discharge, ENT: Negative for injury, pain, and discharge, Neck: Negative for injury, pain, and swelling, Cardiovascular: Negative for chest pain, palpitations, and edema, Respiratory: Negative for shortness of breath, cough, wheezing, and pleuritic chest pain, Abdomen/GI: Negative for abdominal pain, nausea, vomiting, diarrhea, and constipation, Back: Negative for injury and pain, MS/Extremity: Negative for injury and deformity, Skin: Negative for injury, rash, and discoloration, Neuro: Negative for headache, weakness, numbness, tingling, and seizure, Psych: Negative for depression, anxiety, suicide ideation, homicidal ideation, and hallucinations, Allergy/Immunology: Negative for hives, rash, and allergies, Endocrine: Negative for neck swelling, polydipsia, polyuria, polyphagia, and marked weight changes, Hematologic/Lymphatic: Negative for swollen nodes, abnormal bleeding, and unusual bruising. Exam: 02:05 Constitutional: This is a well developed, well nourished patient who is awake, alert, mh7 and in no acute distress. Head/Face: Normocephalic, atraumatic. Eyes: Pupils equal round and reactive to light, extra-ocular motions intact. Lids and lashes normal. Conjunctiva and sclera are non-icteric and not injected. Cornea within normal limits. Periorbital areas with no swelling, redness, or edema. Neck: Trachea midline, no thyromegaly or masses palpated, and no cervical lymphadenopathy. Supple, full range of motion without nuchal rigidity, or vertebral point tenderness. No Meningismus. Chest/axilla: Normal chest wall appearance and motion. Nontender with no deformity. No lesions are appreciated. Cardiovascular: Regular rate and rhythm with a normal S1 and S2. No gallops, murmurs, or rubs. Normal PMI, no JVD. No pulse deficits. Respiratory: Lungs have equal breath sounds bilaterally, clear to auscultation and percussion. No rales, rhonchi or wheezes noted. No increased work of breathing, no retractions or nasal flaring. Abdomen/GI: Soft, non-tender, with normal bowel sounds. No distension or tympany. No guarding or rebound. No evidence of tenderness throughout. Back: No spinal tenderness. No costovertebral tenderness. Full range of motion. 02:05 MS/ Extremity: Pulses equal, no cyanosis. Neurovascular intact. Full, normal range of motion. Neuro: Awake and alert, GCS 15, oriented to person, place, time, and situation. Cranial nerves II-XII grossly intact. Motor strength 5/5 in all extremities. Sensory grossly intact. Cerebellar exam normal. Normal gait. Psych: Awake, alert, with orientation to person, place and time. Behavior, mood, and affect are within normal limits. 02:05 : CVA tenderness, is absent, Rome Catheter Dislodged. Vital Signs: 00:30 BP 120 / 70; Pulse 60; Resp 18; Pulse Ox 98% ; ea 01:30 BP 118 / 72; Pulse 80; Resp 18; Pulse Ox 98% ; ea 02:30 BP 122 / 80; Pulse 98; Resp 18; Pulse Ox 99% ; ea MDM: 02:05 Differential diagnosis: Rome catheter malfunction, Rome catheter Disloged. Data 7 reviewed: vital signs, nurses notes, EMS record. Data interpreted: Pulse oximetry: on room air. Counseling: I had a detailed discussion with the patient and/or guardian regarding: the historical points, exam findings, and any diagnostic results supporting the discharge/admit diagnosis, the need for outpatient follow up, to return to the emergency department if symptoms worsen or persist or if there are any questions or concerns that arise at home. Response to treatment: the patient's symptoms have resolved after treatment, the patient's blood pressure is in an acceptable range, mental status has returned to baseline, the patient no longer shows bradycardia, the patient is not short of breath, the patient is not tachycardic, the patient's pain is gone, the patient's temperature has normalized. 02:10 Patient medically screened. 7 Administered Medications: No medications were administered Disposition: 04/21/20 02:10 Discharged to Home. Impression: Dislodged Rome Catheter. - Condition is Stable. - Discharge Instructions: Rome Catheter Care, Adult, [id number]. - Medication Reconciliation Form, Thank You Letter, Antibiotic Education, Prescription Opioid Use form. - Follow up: Private Physician; When: 1 - 2 days; Reason: Worsening of condition, Recheck today's complaints, Continuance of care, Re-evaluation by your physician. - Problem is an acute exacerbation. - Symptoms have improved. Signatures: Peggy Meyer RN RN ea Vicente, Ronaldo, RN RN rv Holmes, Maurice, MD MD [facility] Corrections: (The following items were deleted from the chart) 02:49 02:10 04/21/2020 02:10 Discharged to Home. Impression: Dislodged Rome Catheter. ea Condition is Stable. Forms are Medication Reconciliation Form, Thank You Letter, Antibiotic Education, Prescription Opioid Use. Follow up: Private Physician; When: 1 - 2 days; Reason: Worsening of condition, Recheck today's complaints, Continuance of care, Re-evaluation by your physician. Problem is an acute exacerbation. Symptoms have improved. [facility]
[2020-04-21 02:57] VITALS: BP 122/80; O2SAT 99
== END 2020-04-21 02:49 | disposition home or self-care (01) ==
LOC: ER 00:18
DX: T83.021A Displacement of indwelling urethral catheter, initial encounter (principal); Z88.0 Allergy status to penicillin; Z88.6 Allergy status to analgesic agent
CPT/HCPCS: 51702; 99284

== ENCOUNTER 2020-04-25 11:37 | Emergency (ER) | payer OTHER, MEDICAID ==
--- OUTSIDE RECORDS SUMMARY | 2020-04-25 11:39 | XMS REPORT | Continuity of Care Document ---
:1950 Author Organization [facility] t Address [address] [place] [address] Care Team Providers Name Role Phone SARAH [...] ID 2019-09-01 2019-09-01 Outpatient RAUL CAMARENA RAD [id number] 08:32:00 23:59:00 [facility] Results This patient has no known results.
--- NOTE | 2020-04-25 14:15 | RAD REPORT ---
EXAM DESCRIPTION: RAD - Chest Single View - 04/25/2020 2:09 pm CLINICAL HISTORY: [id number] Chest pain. COMPARISON: Chest Single View dated 04/04/2020; Chest Single View dated 07/25/2019; Abdomen 1 View (KUB ) dated 07/21/2019; Abdomen 1 View (KUB) dated 07/21/2019 FINDINGS: Portable technique limits examination quality. The lungs are grossly clear. The heart is normal in size. No displaced fractures. Single lead pacer/d efibrillator device is present. IMPRESSION: No acute intrathoracic process suspected.
[2020-04-25 14:19] LABS: Absolute Lymphocytes (CBC) 0.9 K/uL (0.7-4.9); Basophils % 0.6 % (0-1.3); Hematocrit 29.2 % (36.0-45.0); Lymphocytes % 14.2 % (15.3-44.8); MPV 8.5 fL (7.6-11.3); Protime INR 2.14; RBC Red Blood Cell Count 3.03 M/uL (3.86-4.86)
[2020-04-25 14:41] LABS: ALT/SGPT 8 U/L (12-78); AST/SGOT 16 U/L (15-37); Albumin 2.4 g/dL (3.4-5.0); Alkaline Phosphatase 84 U/L (45-117); BUN Blood Urea Nitrogen 11 mg/dL (7-18); Bicarbonate 33 mmol/L (21-32); Bilirubin Direct 0.2 mg/dL (0-0.2); Bilirubin Total 0.4 mg/dL (0.2-1.0); Glucose Level 72 mg/dL (74-106); Magnesium 1.9 mg/dL (1.8-2.4); NT PRO-BNP 919 pg/mL (<125); Protein, Total 8.8 g/dL (6.4-8.2); Sodium Level 140 mmol/L (136-145); Troponin (Emerg Dept Use Only) < 0.02 ng/mL (0.0-0.045)
[2020-04-25 14:44] LABS: Potassium 2.5 mmol/L (3.5-5.1)
[2020-04-25] MEDS ORDERED: KCL 20 MEQ/100 mL IVPB 20 MEQ/100 ML BAG IV ONE (15:28)
[2020-04-25] MEDS ORDERED: POTASSIUM CL SA 10 MEQ TAB PO ONE (15:28)
[2020-04-25] MEDS ORDERED: NA CHLORIDE 0.9% 500 ML ONE (15:28)
--- NOTE | 2020-04-25 15:50 | ER ---
[facility]urse's Notes [facility] Name: Anita Harp Age: 70 yrs Sex: Female : 1950 Arrival Date: 04/25/2020 Time: 11:44 Bed 24 Private MD: Diagnosis: Weakness;Hypokalemia Presentation: 04/25 11:45 Chief complaint: EMS states: Pt. was at the [facility] and they called EMS rb3 without the pt. being seen. Pt. A \T\ O x 4, wheelchair bound, c/o weakness, dizziness, and nausea. Reports that she feels this way when her Potassium is low. Has history of hypokalemia. BP 117/70, 92/68, P 80, BS 219. Allergy to Ibuprofen, Aspirin, and Penicillin. Pt. arrived with a Rome. 11:45 Coronavirus screen: nausea. Ebola Screen: Patient denies travel to an Ebola-affected [facility] area in the 21 days before illness onset. Risk Assessment: Do you want to hurt yourself or someone else? Patient reports no desire to harm self or others. Onset of symptoms was April 25, 2020. 11:45 Method Of Arrival: EMS: [facility] rb3 11:45 Acuity: DENTON 3 rb3 11:45 Initial Sepsis Screen: Does the patient meet any 2 criteria? No. Patient's initial rb3 sepsis screen is negative. Does the patient have a suspected source of infection? No. Patient's initial sepsis screen is negative. Triage Assessment: 11:45 General: Appears in no apparent distress. comfortable, Behavior is calm, cooperative, rb3 Denies fever, chills. Pain: Denies pain. Neuro: Level of Consciousness is awake, alert, obeys commands, Oriented to person, place, time, situation, Reports dizziness, weakness. Cardiovascular: Patient's skin is warm and dry. Cardiovascular: Denies chest pain. Respiratory: Airway is patent Respiratory effort is even, unlabored, Respiratory pattern is regular, symmetrical, Denies shortness of breath. GI: Reports nausea. : Rome in place Arrived with the Rome. Musculoskeletal: Reports being bedbound. Historical: - Allergies: 11:45 Aspirin; rb3 11:45 Ibuprofen; rb3 11:45 PENICILLINS; rb3 - Home Meds: 11:45 amitriptyline 10 mg Oral tab 1 tab 3 times per day [Active]; carvedilol 12.5 mg Oral rb3 tab 1 tab 2 times per day [Active]; furosemide 20 mg Oral tab 1 tab once daily [Active]; gabapentin 300 mg Oral cap 1 cap 3 times per day [Active]; metformin 500 mg Oral TbER 2 tabs once daily [Active]; potassium chloride 20 mEq Oral TbER 1 tab once daily [Active]; valsartan 160 mg Oral tab 1 tab once daily [Active]; venlafaxine 150 mg Oral cp24 1 cap once daily [Active]; - PMHx: 11:45 Anxiety; CHF; claustrophobia; COPD; Diabetes - NIDDM; Panic Attacks; Rheumatoid rb3 Arthritis; - Immunization history:: Adult Immunizations up to date. - Social history:: Smoking status: Patient/guardian denies using. Screenin:45 Abuse screen: Denies threats or abuse. Nutritional screening: No deficits noted. rb3 Tuberculosis screening: No symptoms or risk factors identified. 11:45 Fall Risk No fall in past 12 months (0 pts). Secondary diagnosis (15 points) impaired rb3 mobility, IV access (20 points). Ambulatory Aid- None/Bed Rest/Nurse Assist (0 pts). Gait- Impaired (20 pts.). Mental Status- Oriented to own ability (0 pts). Total Hernández Fall Scale indicates High Risk Score (45 or more points). Fall prevention measures have been instituted. Side Rails Up X 2 Placed Close to Nursing Station 1:1 Attendant Assigned Frequent Obs/Assessments Occuring As available patient and family educated on Fall Prevention Program and Strategies. Assessment: 11:45 General: See triage assessment. rb3 12:30 Reassessment: Patient appears in no apparent distress at this time. No changes from rb3 previously documented assessment. 13:30 Reassessment: Patient appears in no apparent distress at this time. Patient and/or rb3 family updated on plan of care and expected duration. Pain level reassessed. Patient is alert, oriented x 3, equal unlabored respirations, skin warm/dry/pink. Patient denies pain at this time. 14:23 Reassessment: Patient appears in no apparent distress at this time. No changes from rb3 previously documented assessment. 15:20 Reassessment: Patient appears in no apparent distress at this time. Patient and/or rb3 family updated on plan of care and expected duration. Pain level reassessed. Patient is alert, oriented x 3, equal unlabored respirations, skin warm/dry/pink. 16:04 Reassessment: Discharge pending due to Potassium infusing. rb3 20:49 Reassessment: Patient appears in no apparent distress at this time. Patient and/or iw family updated on plan of care and expected duration. Pain level reassessed. Vital Signs: 11:45 BP 104 / 69; Pulse 90; Resp 19; Temp 98.1; Pulse Ox 98% ; Weight 157.85 kg; Height 5 rb3 ft. 4 in. (162.56 cm); Pain 0/10; 12:30 BP 100 / 67; Pulse 87; Resp 14; Pulse Ox 98% ; rb3 13:30 BP 121 / 72; Pulse 81; Resp 16; Pulse Ox 99% ; rb3 14:23 BP 119 / 84; Pulse 86; Resp 17; Pulse Ox 99% ; rb3 15:20 BP 138 / 72; Pulse 86; Resp 12; Pulse Ox 98% ; rb3 11:45 Body Mass Index 59.73 (157.85 kg, 162.56 cm) rb3 ED Course: 11:44 Patient arrived in ED. em1 11:45 Arm band placed on right wrist. rb3 11:45 Patient has correct armband on for positive identification. Bed in low position. Call rb3 light in reach. Side rails up X2. cafe assistant on. Pulse ox on. NIBP on. 11:52 Ana Sawant, RN is Primary Nurse. rb3 11:59 Triage completed. rb3 12:37 Saad Navarrete MD is Attending Physician. kdr 14:09 XRAY Chest (1 view) In Process Unspecified. EDMS 14:43 Notified ED physician of a critical lab result(s). Potassium 2.5. aa5 21:19 No provider procedures requiring assistance completed. IV discontinued, intact, iw bleeding controlled, No redness/swelling at site. Pressure dressing applied. Administered Medications: 15:17 Drug: Potassium Chloride 20 mEq Route: IV; Rate: calculated rate; Site: right rb3 antecubital; 15:17 Drug: Potassium Chloride 40 mEq Route: PO; rb3 Outcome: 15:48 Discharge ordered by . kdr 21:19 [facility]:19 Condition: good 21:19 Discharge instructions given to patient, Instructed on discharge instructions, follow up and referral plans. Demonstrated understanding of instructions, follow-up care. 21:20 Patient left the ED. iw Signatures: Dispatcher [employer] EDMS Saad Navarrete MD MD kdr Williams, Irene, RN RN Mahendra Ochoa em1 Elvi Bee RN RN aa5 Ana Sawant, RN RN rb3
--- NOTE | 2020-04-25 15:50 | EDPHYS ---
Physician Documentation [facility] Name: Anita Harp Age: 70 yrs Sex: Female : 1950 Arrival Date: 04/25/2020 Time: 11:44 Bed 24 Private MD: ED Physician Saad Navarrete HPI: 04/25 15:42 This 70 yrs old Black Female presents to ER via EMS with complaints of Dizziness, kdr General Weakness. 15:42 The patient presents with feeling faint, generalized weakness. Onset: The kdr symptoms/episode began/occurred suddenly, just prior to arrival. Context: occurred Dr. Office, occurred while the patient was. Modifying factors: The symptoms are alleviated by nothing, the symptoms are aggravated by nothing. Associated signs and symptoms: Pertinent positives: diaphoresis, nausea. Severity of symptoms: At their worst the symptoms were mild moderate just prior to arrival, in the emergency department the symptoms have resolved. Patient's baseline: Neuro: alert and fully oriented, Motor: Generalized weakness, bed bound. The patient has not experienced similar symptoms in the past. The patient has not recently seen a physician. Historical: - Allergies: 11:45 Aspirin; rb3 11:45 Ibuprofen; rb3 11:45 PENICILLINS; rb3 - Home Meds: 11:45 amitriptyline 10 mg Oral tab 1 tab 3 times per day [Active]; carvedilol 12.5 mg Oral rb3 tab 1 tab 2 times per day [Active]; furosemide 20 mg Oral tab 1 tab once daily [Active]; gabapentin 300 mg Oral cap 1 cap 3 times per day [Active]; metformin 500 mg Oral TbER 2 tabs once daily [Active]; potassium chloride 20 mEq Oral TbER 1 tab once daily [Active]; valsartan 160 mg Oral tab 1 tab once daily [Active]; venlafaxine 150 mg Oral cp24 1 cap once daily [Active]; - PMHx: 11:45 Anxiety; CHF; claustrophobia; COPD; Diabetes - NIDDM; Panic Attacks; Rheumatoid rb3 Arthritis; - Immunization history:: Adult Immunizations up to date. - Social history:: Smoking status: Patient/guardian denies using. ROS: 15:42 Constitutional: Negative for fever, chills, and weight loss, Eyes: Negative for injury, kdr pain, redness, and discharge, Neck: Negative for injury, pain, and swelling, Cardiovascular: Negative for chest pain, palpitations, and edema, Respiratory: Negative for shortness of breath, cough, wheezing, and pleuritic chest pain, Abdomen/GI: Negative for abdominal pain, nausea, vomiting, diarrhea, and constipation, Back: Negative for injury and pain, : Negative for injury, bleeding, discharge, and swelling, MS/Extremity: Negative for injury and deformity, Skin: Negative for injury, rash, and discoloration, Neuro: Negative for headache, numbness, tingling, and seizure activity. She did feel generally weak Psych: Negative for depression, anxiety, suicide ideation, homicidal ideation, and hallucinations, Allergy/Immunology: Negative for hives, rash, and allergies, Endocrine: Negative for neck swelling, polydipsia, polyuria, polyphagia, and marked weight changes, Hematologic/Lymphatic: Negative for swollen nodes, abnormal bleeding, and unusual bruising. Exam: 15:42 Constitutional: This is a well developed, well nourished patient who is awake, alert, kdr and in no acute distress. Head/Face: Normocephalic, atraumatic. Eyes: Pupils equal round and reactive to light, extra-ocular motions intact. Lids and lashes normal. Conjunctiva and sclera are non-icteric and not injected. Cornea within normal limits. Periorbital areas with no swelling, redness, or edema. Neck: Trachea midline, no thyromegaly or masses palpated, and no cervical lymphadenopathy. Supple, full range of motion without nuchal rigidity, or vertebral point tenderness. No Meningismus. Chest/axilla: Normal chest wall appearance and motion. Nontender with no deformity. No lesions are appreciated. Cardiovascular: Regular rate and rhythm with a normal S1 and S2. No gallops, murmurs, or rubs. Normal PMI, no JVD. No pulse deficits. Respiratory: Lungs have equal breath sounds bilaterally, clear to auscultation and percussion. No rales, rhonchi or wheezes noted. No increased work of breathing, no retractions or nasal flaring. Abdomen/GI: Soft, non-tender, with normal bowel sounds. No distension or tympany. No guarding or rebound. No evidence of tenderness throughout. Back: No spinal tenderness. No costovertebral tenderness. Full range of motion. Skin: Warm, dry with normal turgor. Normal color with no rashes, no lesions, and no evidence of cellulitis. MS/ Extremity: Pulses equal, no cyanosis. Neurovascular intact. Full, normal range of motion. Neuro: Awake and alert, GCS 15, oriented to person, place, time, and situation. Cranial nerves II-XII grossly intact. Motor strength 5/5 in all extremities. Sensory grossly intact. Cerebellar exam normal. Normal gait. Psych: Awake, alert, with orientation to person, place and time. Behavior, mood, and affect are within normal limits. Vital Signs: 11:45 BP 104 / 69; Pulse 90; Resp 19; Temp 98.1; Pulse Ox 98% ; Weight 157.85 kg; Height 5 rb3 ft. 4 in. (162.56 cm); Pain 0/10; 12:30 BP 100 / 67; Pulse 87; Resp 14; Pulse Ox 98% ; rb3 13:30 BP 121 / 72; Pulse 81; Resp 16; Pulse Ox 99% ; rb3 14:23 BP 119 / 84; Pulse 86; Resp 17; Pulse Ox 99% ; rb3 15:20 BP 138 / 72; Pulse 86; Resp 12; Pulse Ox 98% ; rb3 11:45 Body Mass Index 59.73 (157.85 kg, 162.56 cm) rb3 MDM: 15:42 Data reviewed: vital signs, nurses notes, lab test result(s), radiologic studies. kdr Counseling: I had a detailed discussion with the patient and/or guardian regarding: the historical points, exam findings, and any diagnostic results supporting the discharge/admit diagnosis, lab results, the need for outpatient follow up. 15:48 Patient medically screened. kdr 04/25 12:36 Order name: Glucose, Ancillary Testing; Complete Time: 14:46 EDMS 04/25 13:38 Order name: Basic Metabolic Panel kdr 04/25 13:38 Order name: CBC with Diff kdr 04/25 13:38 Order name: LFT's kdr 04/25 13:38 Order name: Magnesium kdr 04/25 13:38 Order name: NT PRO-BNP; Complete Time: 14:46 kdr 04/25 13:38 Order name: PT-INR; Complete Time: 14:46 kdr 04/25 13:38 Order name: Troponin (emerg Dept Use Only); Complete Time: 14:46 kdr 04/25 13:38 Order name: XRAY Chest (1 view); Complete Time: 14:46 [facility] 04/25 13:39 Order name: Basic Metabolic Panel; Complete Time: 14:46 [facility] 04/25 13:39 Order name: CBC with Automated Diff; Complete Time: 14:46 [facility] 04/25 13:39 Order name: Liver (Hepatic) Function; Complete Time: 14:46 [facility] 04/25 13:39 Order name: Magnesium; Complete Time: 14:46 [facility] 04/25 13:38 Order name: EKG; Complete Time: 13:39 [facility] 04/25 13:38 Order name: Cardiac monitoring; Complete Time: 14: [facility] 04/25 13:38 Order name: EKG - Nurse/Tech; Complete Time: 14:20 [facility] 04/25 13:38 Order name: IV Saline Lock; Complete Time: 14:20 [facility] 04/25 13:38 Order name: Labs collected and sent; Complete Time: 14:21 [facility] 04/25 13:38 Order name: O2 Per Protocol; Complete Time: 14: [facility] 04/25 13:38 Order name: O2 Sat Monitoring; Complete Time: 14:02 [facility] 04/25 15:27 Order name: Rome; Complete Time: 16:04 rb3 Administered Medications: 15:17 Drug: Potassium Chloride 20 mEq Route: IV; Rate: calculated rate; Site: right rb3 antecubital; 15:17 Drug: Potassium Chloride 40 mEq Route: PO; rb3 Disposition: 04/25/20 15:48 Discharged to Home. Impression: Weakness, Hypokalemia. - Condition is Stable. - Discharge Instructions: Weakness, [id number], Hypokalemia. - Medication Reconciliation Form, Thank You Letter form. - Follow up: Private Physician; When: 2 - 3 days; Reason: If symptoms return, Further diagnostic work-up, Recheck today's complaints, Continuance of care, Re-evaluation by your physician. - Problem is new. - Symptoms are resolved. Signatures: Dispatcher [employer] [facility] Saad Navarrete MD MD kdr Claudette Hill RN RN iw Ana Sawant RN RN rb3 Corrections: (The following items were deleted from the chart) 15:51 15:48 04/25/2020 15:48 Discharged to Home. Impression: Weakness. Condition is Stable. kdr Forms are Medication Reconciliation Form, Thank You Letter, Antibiotic Education, Prescription Opioid Use. Follow up: Private Physician; When: 2 - 3 days; Reason: If symptoms return, Further diagnostic work-up, Recheck today's complaints, Continuance of care, Re-evaluation by your physician. Problem is new. Symptoms are resolved. kdr 21:20 15:51 04/25/2020 15:48 Discharged to Home. Impression: Weakness; Hypokalemia. Condition iw is Stable. Discharge Instructions: Weakness, [id number], Hypokalemia. Forms are Medication Reconciliation Form, Thank You Letter. Follow up: Private Physician; When: 2 - 3 days; Reason: If symptoms return, Further diagnostic work-up, Recheck today's complaints, Continuance of care, Re-evaluation by your physician. Problem is new. Symptoms are resolved. kdr
[2020-04-25 23:39] VITALS: TEMP 98.1
[2020-04-25 23:45] VITALS: BP 138/72; O2SAT 98
--- NOTE | 2020-04-26 11:06 | EKG ---
Test Date: 2020-04-25 Test Time: 14:15:45 Technical Solutions Engineer: MONICA MEASUREMENT RESULTS: Intervals: Rate: 86 ID: [id number] QRSD: 104 QT: 402 QTc: 481 Carver: P: ID: [id number] QRS: -24 T: 102 INTERPRETIVE STATEMENTS: Sinus rhythm with marked sinus arrhythmia with premature atrial complexes Left ventricular hypertrophy with repolarization abnormality Abnormal ECG Compared to ECG 04/04/2020 12:19:03 Atrial premature complex(es) now present Left ventricular hypertrophy now present Early repolarization now present Left-axis deviation no longer present ST (T wave) deviation no longer present Electronically Signed On 04-26-20 11:05:06 ER TECH by Dustin Sutton
== END 2020-04-25 21:20 | disposition home or self-care (01) ==
LOC: ER 11:37
DX: E87.6 Hypokalemia (principal); R53.1 Weakness; I50.9 Heart failure, unspecified; J44.9 Chronic obstructive pulmonary disease, unspecified; E11.9 Type 2 diabetes mellitus without complications; M06.9 Rheumatoid arthritis, unspecified; F41.0 Panic disorder [episodic paroxysmal anxiety]
CPT/HCPCS: 93005; 85025; 80048; 36415; 83735; 85610; 82947; 80076; 84484; 83880; 71045; 96374; 99284; J3480; J7040

== ENCOUNTER 2020-05-02 17:28 | Emergency (ER) | payer OTHER, MEDICAID ==
--- OUTSIDE RECORDS SUMMARY | 2020-05-02 17:30 | XMS REPORT | Continuity of Care Document ---
:1950 Author Organization [facility] t Address [address] [place] [address] Care Team Providers Name Role Phone SARAH [...] ID 2019-09-01 2019-09-01 Outpatient RAUL CAMARENA RAD [id number] [facility] 08:32:00 23:59:00 [facility] Results This patient has no known results.
--- NOTE | 2020-05-02 19:46 | ER ---
Nurse's Notes [facility] Name: Anita Harp Age: 70 yrs Sex: Female : 1950 Arrival Date: 05/02/2020 Time: 17:30 Bed 20 Private MD: Unknown, Unknown Diagnosis: Other mechanical complication of urinary (indwelling) catheter Presentation: 05/02 17:34 Chief complaint: EMS states: Pt reports that Rome has come out, has been seen recently ph in ED for same complaint, family reports that pt is "in between [place] and has no one to come out to help." No other complaints, VSS. Coronavirus screen: Client denies travel out of the [place] in the last 14 days. At this time, the client does not indicate any symptoms associated with coronavirus-19. Ebola Screen: No symptoms or risks identified at this time. Initial Sepsis Screen: Does the patient meet any 2 criteria? No. Patient's initial sepsis screen is negative. Does the patient have a suspected source of infection? No. Patient's initial sepsis screen is negative. Risk Assessment: Do you want to hurt yourself or someone else? Patient reports no desire to harm self or others. Onset of symptoms was May 02, 2020. 17:34 Method Of Arrival: EMS: [facility] ph 17:34 Acuity: [place] 4 ph Historical: - Allergies: 17:38 Aspirin; ph 17:38 Ibuprofen; ph 17:38 PENICILLINS; ph - Home Meds: 17:38 amitriptyline 10 mg Oral tab 1 tab 3 times per day [Active]; carvedilol 12.5 mg Oral ph tab 1 tab 2 times per day [Active]; furosemide 20 mg Oral tab 1 tab once daily [Active]; gabapentin 300 mg Oral cap 1 cap 3 times per day [Active]; metformin 500 mg Oral cpER 2 tabs once daily [Active]; potassium chloride 20 mEq Oral cpER 1 tab once daily [Active]; valsartan 160 mg Oral tab 1 tab once daily [Active]; venlafaxine 150 mg Oral cp24 1 cap once daily [Active]; - PMHx: 17:38 Anxiety; CHF; claustrophobia; COPD; Diabetes - NIDDM; Panic Attacks; Rheumatoid ph Arthritis; - Immunization history:: Adult Immunizations unknown. - Social history:: Smoking status: Patient denies any tobacco usage or history of. Screenin:37 Abuse screen: Denies threats or abuse. Denies injuries from another. Nutritional ph screening: No deficits noted. Tuberculosis screening: No symptoms or risk factors identified. Fall Risk None identified. Assessment: 19:08 General: Appears in no apparent distress. comfortable, obese, Behavior is calm, ph cooperative, appropriate for age, Denies fever. Pain: Denies pain. Neuro: Level of Consciousness is awake, alert, obeys commands, Oriented to person, place, time, situation. Cardiovascular: Capillary refill < 3 seconds in bilateral fingers Patient's skin is warm and dry. Respiratory: Airway is patent Respiratory effort is even, unlabored. GI: No signs and/or symptoms were reported involving the gastrointestinal system. : Rome in place to gravity drainage urine noted to be leaking from around catheter. Derm: Skin is intact, Skin is pink, warm \\T\\ dry. 19:30 General: Appears in no apparent distress. comfortable, obese, Behavior is calm, sf cooperative, appropriate for age. Pain: Denies pain. Neuro: No deficits noted. Level of Consciousness is Oriented to. Cardiovascular: No deficits noted. Patient's skin is warm and dry. Respiratory: No deficits noted. Airway is patent Respiratory effort is even, unlabored. GI: No signs and/or symptoms were reported involving the gastrointestinal system. Abdomen is obese, PEG tube in place, clamped. Site clean. : Rome in place to gravity drainage Genitalia appear normal Denies pain. 20:08 Reassessment: Patient reports normally mobile with w/c, has w/c at home, has no way to sf get home, requesting ambulance transportation. Vital Signs: 17:34 BP 114 / 69; Pulse 86; Resp 18; Temp 98.2; Pulse Ox 97% ; ph 18:30 BP 118 / 70; Pulse 84; Resp 18; Pulse Ox 98% on R/A; ph 19:15 BP 117 / 76 Supine (auto/); Pulse 87 MON; Resp 18 S; Pulse Ox 99% on R/A; sf ED Course: 17:30 Patient arrived in ED. em1 17:33 Brennan Katz PA is PHCP. cp 17:33 Saad Navarrete MD is Attending Physician. cp 17:34 Thomas, Domonique, RN is Primary Nurse. ph 17:37 Triage completed. ph 17:39 Patient has correct armband on for positive identification. Bed in low position. Call ph light in reach. Side rails up X2. Pulse ox on. NIBP on. Door closed. Noise minimized. Warm blanket given. 17:39 Arm band placed on Patient placed in an exam room, on a stretcher. ph 19:08 Rome cath inserted, using sterile technique, 18 Fr., by warpman, balloon inflated, to ph gravity drainage, other ballon inflated w/ 30 cc sterile water. 19:42 Primary Nurse role handed off by Domonique Thomas, CHRISTOPH mw2 19:46 Buddy Mane, RN is Primary Nurse. sf 20:05 Patient did not have IV access during this emergency room visit. sf 20:08 Unknown, Unknown is Private Physician. sg Administered Medications: No medications were administered Outcome: 19:46 Discharge ordered by MD. cp 20:05 Discharged to home via ambulance. sf 20:05 Condition: stable 20:05 Discharge instructions given to patient, Instructed on discharge instructions, follow up and referral plans. Rome cath care. Demonstrated understanding of instructions, follow-up care. 20:20 Patient left the ED. ea Signatures: Buddy Valverde, RN RN sg Mahendra Ochoa em1 Domonique Thomas RN RN Brennan Katz PA PA cp Antunez, Elena, RN RN Madison Brown mw2 Buddy Mane, CHRISTOPH HAWTHORNE
--- NOTE | 2020-05-02 19:46 | EDPHYS ---
Physician Documentation [facility] Name: Anita Harp Age: 70 yrs Sex: Female : 1950 Arrival Date: 05/02/2020 Time: 17:30 Bed 20 Private MD: Unknown, Unknown ED Physician Saad Navarrete HPI: 05/02 17:55 This 70 yrs old Black Female presents to ER via EMS with complaints of Needs Urinary cp Catheter Replacement. 17:55 The patient presents with dislodged urinary brito. Onset: The symptoms/episode cp began/occurred today. Associated signs and symptoms: Pertinent negatives: fever, vomiting, abdominal pain. No complaints expressed by patient other than brito has been dislodged. Historical: - Allergies: 17:38 Aspirin; ph 17:38 Ibuprofen; ph 17:38 PENICILLINS; ph - Home Meds: 17:38 amitriptyline 10 mg Oral tab 1 tab 3 times per day [Active]; carvedilol 12.5 mg Oral ph tab 1 tab 2 times per day [Active]; furosemide 20 mg Oral tab 1 tab once daily [Active]; gabapentin 300 mg Oral cap 1 cap 3 times per day [Active]; metformin 500 mg Oral cpER 2 tabs once daily [Active]; potassium chloride 20 mEq Oral cpER 1 tab once daily [Active]; valsartan 160 mg Oral tab 1 tab once daily [Active]; venlafaxine 150 mg Oral cp24 1 cap once daily [Active]; - PMHx: 17:38 Anxiety; CHF; claustrophobia; COPD; Diabetes - NIDDM; Panic Attacks; Rheumatoid ph Arthritis; - Immunization history:: Adult Immunizations unknown. - Social history:: Smoking status: Patient denies any tobacco usage or history of. ROS: 18:00 : Positive for dislodged brito. cp 18:00 Constitutional: Negative for fever. cp 18:00 Abdomen/GI: Negative for abdominal pain, nausea, vomiting, and diarrhea. 18:00 Back: Negative for pain at rest, pain with movement. 18:00 Neuro: Negative for altered mental status. 18:00 All other systems are negative. Exam: 18:05 Constitutional: The patient appears in no acute distress, alert, awake, non-toxic, well cp developed, well nourished. 18:05 Head/Face: Normocephalic, atraumatic. cp 18:05 Chest/axilla: Inspection: normal. 18:05 Cardiovascular: Rate: normal. 18:05 Respiratory: the patient does not display signs of respiratory distress, Respirations: normal. 18:05 Abdomen/GI: Inspection: abdomen appears normal, Palpation: abdomen is soft and non-tender, in all quadrants. 18:05 Back: pain, is absent. 18:05 Neuro: Orientation: to person, place \T\ time. Mentation: is normal. Vital Signs: 17:34 BP 114 / 69; Pulse 86; Resp 18; Temp 98.2; Pulse Ox 97% ; ph 18:30 BP 118 / 70; Pulse 84; Resp 18; Pulse Ox 98% on R/A; ph 19:15 BP 117 / 76 Supine (auto/); Pulse 87 MON; Resp 18 S; Pulse Ox 99% on R/A; sf MDM: 17:37 Patient medically screened. cp 18:10 Differential diagnosis: urinary tract infection, sepsis, obstructed brito, dislodged cp brito. 19:45 Data reviewed: vital signs, nurses notes, and as a result, I will discharge patient. cp 19:45 Counseling: I had a detailed discussion with the patient and/or guardian regarding: the cp historical points, exam findings, and any diagnostic results supporting the discharge/admit diagnosis, to return to the emergency department if symptoms worsen or persist or if there are any questions or concerns that arise at home. Response to treatment: the patient's symptoms have resolved after treatment, brito catheter replaced by nursing staff and urine noted in new brito bag, and as a result, I will discharge patient. 05/02 17:49 Order name: Latricia; Complete Time: 19:08 cp Administered Medications: No medications were administered Disposition: 20:00 Chart complete. cp Disposition: 05/02/20 19:46 Discharged to Home. Impression: Other mechanical complication of urinary (indwelling) catheter. - Condition is Stable. - Discharge Instructions: Brito Catheter Care, Adult. - Medication Reconciliation Form, Thank You Letter, Antibiotic Education, Prescription Opioid Use form. - Follow up: Private Physician; When: 1 - 2 days; Reason: Recheck today's complaints. - Problem is new. - Symptoms have improved. Addendum: 05/06/2020 06:13 Co-signature as Attending Physician, Saad Navarrete MD I agree with the assessment and k dr plan of care. Signatures: Saad Navarrete MD MD [facility] Domonique Thomas RN RN Brennan Katz PA PA Peggy Lopes RN RN lisha Corrections: (The following items were deleted from the chart) 05/02 20:20 19:46 05/02/2020 19:46 Discharged to Home. Impression: Other mechanical complication of ea urinary (indwelling) catheter. Condition is Stable. Forms are Medication Reconciliation Form, Thank You Letter, Antibiotic Education, Prescription Opioid Use. Follow up: Private Physician; When: 1 - 2 days; Reason: Recheck today's complaints. Problem is new. Symptoms have improved. cp
[2020-05-02 21:00] VITALS: TEMP 98.2
[2020-05-02 21:02] VITALS: BP 117/76; O2SAT 99
== END 2020-05-02 20:20 | disposition home or self-care (01) ==
LOC: ER 17:28
DX: T83.028A Displacement of other urinary catheter, initial encounter (principal); E11.9 Type 2 diabetes mellitus without complications; I50.9 Heart failure, unspecified; F41.9 Anxiety disorder, unspecified; J44.9 Chronic obstructive pulmonary disease, unspecified; Z88.0 Allergy status to penicillin; Z88.6 Allergy status to analgesic agent
CPT/HCPCS: 51702; 99284

== ENCOUNTER 2020-05-10 12:59 | Emergency (ER) | payer OTHER ==
[2020-05-10 13:52] LABS: Urine Blood 3+ (NEG); Urine Glucose NEGATIVE (NEG); Urine Protein 2+ (NEG); Urine pH >8.5 (5.0-7.0)
[2020-05-10 14:10] LABS: Urine RBC <5 /HPF (NONE SEEN)
[2020-05-10 14:11] LABS: Urine Amorphous Sediment 4+ /HPF (NONE SEEN); Urine Triple Phosphate Crystal MANY (NONE SEEN)
[2020-05-10 14:12] LABS: Urine Bacteria 20-50 /HPF (<20)
[2020-05-10 14:35] LABS: Absolute Lymphocytes (CBC) 1.1 K/uL (0.7-4.9); Basophils % 0.7 % (0-1.3); Hematocrit 31.2 % (36.0-45.0); Lymphocytes % 33.3 % (15.3-44.8); MPV 7.9 fL (7.6-11.3); RBC Red Blood Cell Count 3.24 M/uL (3.86-4.86)
[2020-05-10 14:40] LABS: Protime INR 1.92
[2020-05-10 15:09] LABS: Potassium 2.5 mmol/L (3.5-5.1)
--- NOTE | 2020-05-10 15:33 | EDPHYS ---
Physician Documentation [facility] Name: Anita Harp Age: 70 yrs Sex: Female : 1950 Arrival Date: 05/10/2020 Time: 13:03 Bed 28 Private MD: ED Physician Saad Navarrete HPI: 05/10 18:36 This 70 yrs old Black Female presents to ER via EMS with complaints of Urinary Problem. kb 18:41 The patient presents with urinary symptoms, hematuria. Onset: The symptoms/episode kb began/occurred today. Modifying factors: The symptoms are alleviated by nothing, the symptoms are aggravated by nothing. Associated signs and symptoms: Pertinent positives: hematuria. Severity of symptoms: At their worst the symptoms were mild, in the emergency department the symptoms are unchanged. The patient has experienced similar episodes in the past. The patient has not recently seen a physician. Pt reports she noticed blood in her urine around 1000. States she has had a brito for a long time and it was recently changed. Denies any other symptoms. Historical: - Allergies: 13:06 Aspirin; vg1 13:06 Ibuprofen; vg1 13:06 PENICILLINS; vg1 - Home Meds: 13:06 amitriptyline 10 mg Oral tab 1 tab 3 times per day [Active]; carvedilol 12.5 mg Oral vg1 tab 1 tab 2 times per day [Active]; furosemide 20 mg Oral tab 1 tab once daily [Active]; gabapentin 300 mg Oral cap 1 cap 3 times per day [Active]; metformin 500 mg Oral cpER 2 tabs once daily [Active]; potassium chloride 20 mEq Oral cpER 1 tab once daily [Active]; valsartan 160 mg Oral tab 1 tab once daily [Active]; venlafaxine 150 mg Oral cp24 1 cap once daily [Active]; - PMHx: 13:06 Anxiety; CHF; claustrophobia; COPD; Diabetes - NIDDM; Panic Attacks; Rheumatoid vg1 Arthritis; - Immunization history:: Adult Immunizations up to date. - Social history:: Smoking status: Patient denies any tobacco usage or history of. ROS: 18:39 Constitutional: Negative for fever, chills, and weight loss, Cardiovascular: Negative kb for chest pain, palpitations, and edema, Respiratory: Negative for shortness of breath, cough, wheezing, and pleuritic chest pain, Abdomen/GI: Negative for abdominal pain, nausea, vomiting, diarrhea, and constipation, MS/Extremity: Negative for injury and deformity, Skin: Negative for injury, rash, and discoloration, Neuro: Negative for headache, weakness, numbness, tingling, and seizure. 18:39 : Positive for hematuria. Exam: 18:41 Constitutional: This is a well developed, well nourished patient who is awake, alert, kb and in no acute distress. Head/Face: Normocephalic, atraumatic. Respiratory: Lungs have equal breath sounds bilaterally, clear to auscultation and percussion. No rales, rhonchi or wheezes noted. No increased work of breathing, no retractions or nasal flaring. Abdomen/GI: Soft, non-tender, with normal bowel sounds. No distension or tympany. No guarding or rebound. No evidence of tenderness throughout. Neuro: Awake and alert, GCS 15, oriented to person, place, time, and situation. Cranial nerves II-XII grossly intact. Motor strength 5/5 in all extremities. Sensory grossly intact. Cerebellar exam normal. Normal gait. Vital Signs: 13:04 BP 131 / 86; Pulse 86; Resp 18; Temp 98.3; Pulse Ox 100% ; Pain 0/10; vg1 14:00 BP 109 / 80; Pulse 85; Resp 18; Pulse Ox 100% on R/A; vg1 15:00 BP 125 / 70; Pulse 87; Resp 16; Pulse Ox 100% on R/A; vg1 MDM: 13:13 Patient medically screened. kb 15:31 Data reviewed: vital signs, nurses notes. Data interpreted: Pulse oximetry: on room air kb is 100 %. Interpretation: normal. Counseling: I had a detailed discussion with the patient and/or guardian regarding: the historical points, exam findings, and any diagnostic results supporting the discharge/admit diagnosis, lab results, the need for outpatient follow up, a family practitioner, to return to the emergency department if symptoms worsen or persist or if there are any questions or concerns that arise at home. 05/10 13:13 Order name: Urine Microscopic Only; Complete Time: 14:13 kb 05/10 13:13 Order name: CBC with Diff; Complete Time: 14:55 kb 05/10 13:13 Order name: Basic Metabolic Panel; Complete Time: 15:24 kb 05/10 13:13 Order name: Protime (+inr); Complete Time: 14:55 kb 05/10 13:13 Order name: Ptt, Activated; Complete Time: 14:55 kb 05/10 13:41 Order name: Urine Dipstick--Ancillary (enter results); Complete Time: 13:55 eb 05/10 13:13 Order name: Urine Dipstick-Ancillary (obtain specimen); Complete Time: 13:34 kb 05/10 13:33 Order name: Brito: replace brito; Complete Time: 17:29 kb 05/10 14:14 Order name: Urine Culture EDMS Administered Medications: 15:36 Not Given (Patient Refused): Potassium Effervescent Tablet 50 mEq PO once; dissolve in kb 4 ounces of water or juice 15:56 Drug: NS 0.9% 250 ml Route: IV; Rate: bolus; Site: right antecubital; vg1 17:30 Follow up: IV Status: Completed infusion vg1 15:57 Drug: Potassium Chloride 40 mEq Route: PO; vg1 17:30 Follow up: Response: No adverse reaction vg1 15:57 Drug: Potassium Chloride 20 mEq Route: IV; Rate: calculated rate; Site: right vg1 antecubital; 17:29 Follow up: IV Status: Completed infusion vg1 17:29 Drug: Rocephin 1 grams Route: IV; Rate: calculated rate; Site: right antecubital; vg1 17:29 Follow up: IV Status: Completed infusion vg1 Disposition: 05/10/20 15:32 Discharged to Home. Impression: Urinary tract infection, site not specified. - Condition is Stable. - Discharge Instructions: Urinary Tract Infection, Adult, [id number]. - Prescriptions for Cipro 500 mg Oral Tablet - take 1 tablet by ORAL route every 12 hours for 7 days; 14 tablet. - Medication Reconciliation Form, Thank You Letter, Antibiotic Education, Prescription Opioid Use form. - Follow up: Emergency Department; When: As needed; Reason: Worsening of condition. Follow up: Private Physician; When: 2 - 3 days; Reason: Recheck today's complaints, Continuance of care, Re-evaluation by your physician. Addendum: 05/12/2020 14:36 Co-signature as Attending Physician, Saad Navarrete MD I agree with the assessment and k dr plan of care. Signatures: Dispatcher [employer] EDMS FlorezVicenteDaniela, BAG SHAKER-C BAG SHAKER-Ckb Saad Navarrete MD MD kdr [place], MyKena mw2 Maria Luisa Ruiz, RN RN vg1 Corrections: (The following items were deleted from the chart) 05/11 01:06 05/10 15:32 05/10/2020 15:32 Discharged to Home. Impression: Urinary tract infection, mw2 site not specified. Condition is Stable. Forms are Medication Reconciliation Form, Thank You Letter, Antibiotic Education, Prescription Opioid Use. Follow up: Emergency Department; When: As needed; Reason: Worsening of condition. Follow up: Private Physician; When: 2 - 3 days; Reason: Recheck today's complaints, Continuance of care, Re-evaluation by your physician. kb
--- NOTE | 2020-05-10 15:33 | ER ---
Nurse's Notes [facility] Name: Anita Harp Age: 70 yrs Sex: Female : 1950 Arrival Date: 05/10/2020 Time: 13:03 Bed 28 Private MD: Diagnosis: Urinary tract infection, site not specified Presentation: 05/10 13:04 Chief complaint: EMS states: Stated about 30 minutes ago patient noticed blood in brito vg1 bag. Brito was placed about a week ago in ED. Coronavirus screen: Client denies travel out of the [place] in the last 14 days. Ebola Screen: Patient negative for fever greater than or equal to 101.5 degrees Fahrenheit, and additional compatible Ebola Virus Disease symptoms. Initial Sepsis Screen: Does the patient meet any 2 criteria? No. Patient's initial sepsis screen is negative. Does the patient have a suspected source of infection? No. Patient's initial sepsis screen is negative. Risk Assessment: Do you want to hurt yourself or someone else? Patient reports no desire to harm self or others. Onset of symptoms was May 10, 2020. 13:04 Method Of Arrival: EMS: [facility] vg1 13:04 Acuity: [place] 3 vg1 Historical: - Allergies: 13:06 Aspirin; vg1 13:06 Ibuprofen; vg1 13:06 PENICILLINS; vg1 - Home Meds: 13:06 amitriptyline 10 mg Oral tab 1 tab 3 times per day [Active]; carvedilol 12.5 mg Oral vg1 tab 1 tab 2 times per day [Active]; furosemide 20 mg Oral tab 1 tab once daily [Active]; gabapentin 300 mg Oral cap 1 cap 3 times per day [Active]; metformin 500 mg Oral cpER 2 tabs once daily [Active]; potassium chloride 20 mEq Oral cpER 1 tab once daily [Active]; valsartan 160 mg Oral tab 1 tab once daily [Active]; venlafaxine 150 mg Oral cp24 1 cap once daily [Active]; - PMHx: 13:06 Anxiety; CHF; claustrophobia; COPD; Diabetes - NIDDM; Panic Attacks; Rheumatoid vg1 Arthritis; - Immunization history:: Adult Immunizations up to date. - Social history:: Smoking status: Patient denies any tobacco usage or history of. Screenin:08 Abuse screen: Denies threats or abuse. Nutritional screening: No deficits noted. vg1 Tuberculosis screening: No symptoms or risk factors identified. Fall Risk No fall in past 12 months (0 pts). No secondary diagnosis (0 pts). No IV (0 pts). Ambulatory Aid- None/Bed Rest/Nurse Assist (0 pts). Gait- Normal/Bed Rest/Wheelchair (0 pts) Mental Status- Oriented to own ability (0 pts). Total Hernández Fall Scale indicates No Risk (0-24 pts). Assessment: 13:07 General: Appears in no apparent distress. comfortable, Behavior is calm, cooperative. vg1 Pain: Denies pain. Neuro: Level of Consciousness is awake, alert, obeys commands, Oriented to person, place, time, situation. Cardiovascular: Patient's skin is warm and dry. Respiratory: Airway is patent Respiratory effort is even, unlabored, Respiratory pattern is regular, symmetrical. GI: No signs and/or symptoms were reported involving the gastrointestinal system. : Denies discharge, pain vaginal itching. EENT: No signs and/or symptoms were reported regarding the EENT system. Derm: Skin is intact. Musculoskeletal: Circulation, motion, and sensation intact. 15:23 Reassessment: Patient appears in no apparent distress at this time. No changes from vg1 previously documented assessment. Patient and/or family updated on plan of care and expected duration. Pain level reassessed. Patient is alert, oriented x 3, equal unlabored respirations, skin warm/dry/pink. 15:57 Reassessment: Patient up for d/c. Currently awaiting for IV fluids to complete. vg1 18:08 Reassessment: Patient appears in no apparent distress at this time. No changes from vg1 previously documented assessment. Patient and/or family updated on plan of care and expected duration. Pain level reassessed. Patient is alert, oriented x 3, equal unlabored respirations, skin warm/dry/pink. Patient is currently waiting for an EMS to arrive to be transferred home. Patient denies pain at this time. 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 Vital Signs: 13:04 BP 131 / 86; Pulse 86; Resp 18; Temp 98.3; Pulse Ox 100% ; Pain 0/10; vg1 14:00 BP 109 / 80; Pulse 85; Resp 18; Pulse Ox 100% on R/A; vg1 15:00 BP 125 / 70; Pulse 87; Resp 16; Pulse Ox 100% on R/A; vg1 ED Course: 13:03 Patient arrived in ED. vg1 13:05 Triage completed. vg1 13:08 Patient has correct armband on for positive identification. Bed in low position. Call vg1 light in reach. Side rails up X2. 13:13 Daniela Florez FNP-C [facility]. kb 13:13 Saad Navarrete MD is Attending Physician. kb 13:16 Maria Luisa Ruiz, CHRISTOPH is Primary Nurse. vg1 14:00 Missed attempt(s): 20 gauge in right forearm. Bleeding controlled, band aid applied, jp3 catheter tip intact. Patient maintains SpO2 saturation greater than 95% on room air. 14:15 Initial lab(s) drawn, by me, sent to lab. Inserted saline lock: 22 gauge in right jp3 antecubital area, using aseptic technique. Blood collected. 17:29 Removal of Brito Cath. 22 Fr. 30cc Ribbed Ballon Hematuria Coud 3-way continuous jp3 Irrigation Lubricious coated. 05/11 01:00 No provider procedures requiring assistance completed. Patient did not have IV access em during this emergency room visit. Administered Medications: 02 15:36 Not Given (Patient Refused): Potassium Effervescent Tablet 50 mEq PO once; dissolve in kb 4 ounces of water or juice 15:56 Drug: NS 0.9% 250 ml Route: IV; Rate: bolus; Site: right antecubital; vg1 17:30 Follow up: IV Status: Completed infusion vg1 15:57 Drug: Potassium Chloride 40 mEq Route: PO; vg1 17:30 Follow up: Response: No adverse reaction vg1 15:57 Drug: Potassium Chloride 20 mEq Route: IV; Rate: calculated rate; Site: right vg1 antecubital; 17:29 Follow up: IV Status: Completed infusion vg1 17:29 Drug: Rocephin 1 grams Route: IV; Rate: calculated rate; Site: right antecubital; vg1 17:29 Follow up: IV Status: Completed infusion vg1 Outcome: 15:32 Discharge ordered by . kb 05/11 01:00 Discharged to home via ambulance. em Condition: stable Discharge instructions given to patient, Instructed on discharge instructions, follow up and referral plans. Demonstrated understanding of instructions, follow-up care, medications, Prescriptions given X 1. 01:06 Patient left the ED. mw2 Signatures: Daniela Florez FNP-C FNP-Santiago Amezcua, RN RN Madison Blake mw2 Benji Greer jp3 Maria Luisa Ruiz RN RN vg1
[2020-05-10] MEDS ORDERED: POTASSIUM CL SA 10 MEQ TAB PO ONE (16:00)
[2020-05-10] MEDS ORDERED: CEFTRIAXONE/SWI 1gm 1 GM/10 ML SYR ONE (16:00)
[2020-05-10] MEDS ORDERED: NA CHLORIDE 0.9% 250 ML ONE (16:00)
[2020-05-10] MEDS ORDERED: KCL 20 MEQ/100 mL IVPB 20 MEQ/100 ML BAG IV ONE (16:00)
[2020-05-11 01:10] VITALS: TEMP 98.3; O2SAT 100
[2020-05-11 01:12] VITALS: BP 125/70
== END 2020-05-11 01:06 | disposition home or self-care (01) ==
LOC: ER 12:59
DX: N39.0 Urinary tract infection, site not specified (principal); E11.9 Type 2 diabetes mellitus without complications; F41.9 Anxiety disorder, unspecified; I50.9 Heart failure, unspecified; J44.9 Chronic obstructive pulmonary disease, unspecified; Z88.0 Allergy status to penicillin; Z88.6 Allergy status to analgesic agent
CPT/HCPCS: 96365; 87088; 85025; 87086; 80048; 36415; 85610; 85730; 87077; 87186; 96375; 99284; 96366; J3480; J0696; J7050; 81003; 81015

== ENCOUNTER 2020-05-31 12:13 | Emergency (ER) | payer OTHER ==
--- OUTSIDE RECORDS SUMMARY | 2020-05-31 12:16 | XMS REPORT | Continuity of Care Document ---
:1950 Author Organization [facility] t Address [address] [place] [address] Care Team Providers Name Role Phone SARAH [...] ID 2019-09-01 2019-09-01 Outpatient RAUL CAMARENA RAD [id number] [address] 08:32:00 23:59:00 [facility] Results This patient has no known results.
[2020-05-31 13:22] LABS: Absolute Lymphocytes (CBC) 1.2 K/uL (0.7-4.9); Basophils % 0.7 % (0-1.3); Hematocrit 30.5 % (36.0-45.0); MPV 8.9 fL (7.6-11.3); RBC Red Blood Cell Count 3.19 M/uL (3.86-4.86)
[2020-05-31] MEDS ORDERED: NA CHLORIDE 0.9% 500 ML ONE (13:25)
[2020-05-31 13:40] LABS: Magnesium 1.7 mg/dL (1.8-2.4); Potassium 3.3 mmol/L (3.5-5.1)
[2020-05-31 16:17] LABS: Urine Bacteria >50 /HPF (<20); Urine RBC TNTC /HPF (NONE SEEN)
[2020-05-31 16:18] LABS: Urine Amorphous Sediment 4+ /HPF (NONE SEEN)
--- NOTE | 2020-05-31 17:09 | RAD REPORT ---
EXAM DESCRIPTION: CT - Abdomen Pelvis Wo Contrast - 05/31/2020 4:55 pm CLINICAL HISTORY: Hematuria COMPARISON: 2019 TECHNIQUE: Computed axial tomography of the abdomen and pelvis was obtained. IV and oral contrast we re not requested. All CT scans are performed using dose optimization technique as appropriate and may include automated exposure control or mA/KV adjustment according to patient size. FINDINGS: The evaluation of solid organs, vessels and bowel is limited secondary to the lack of con trast administration. Several small left renal calculi. 4 millimeter calculus left UPJ. Minimal left hydronephrosis. A righ t renal calculus is not seen. Liver, spleen, pancreas and adrenals grossly normal Percutaneous tube within the stomach. Rome catheter within the bladder. Fluid within large and small bowel. No evidence of diverticulitis. Sigmoid colon is prominent measuring 7.5 centimeters IMPRESSION: A 4 millimeter calculus left UPJ with minimal hydronephrosis
[2020-05-31] MEDS ORDERED: NA CHLORIDE 0.9% 1,000 ML ONE (17:21)
[2020-05-31] MEDS ORDERED: CEFTRIAXONE/SWI 1gm 1 GM/10 ML SYR ONE (17:21)
--- NOTE | 2020-05-31 17:58 | RAD REPORT ---
EXAM DESCRIPTION: Volodymyr Single View05/31/2020 5:27 pm CLINICAL HISTORY: Abdominal pain COMPARISON: March 2020 FINDINGS: The lungs appear clear of acute infiltrate. The heart is normal size. Pacemaker leads in place IMPRESSION: No acute abnormalities displayed
[2020-05-31] MEDS ORDERED: Meropenem 1 GM/100 ML BAG ONE (18:56)
[2020-05-31] MEDS ORDERED: LIDOCAINE 1% MPF 5 ML VIAL ONE (20:26)
--- NOTE | 2020-05-31 20:40 | ER ---
Nurse's Notes [facility] Name: Anita Harp Age: 70 yrs Sex: Female : 1950 Arrival Date: 05/31/2020 Time: 12:31 Bed 20 Private MD: Diagnosis: Hypotension;Urinary tract infection, site not specified;Calculus of kidney and ureter Presentation: 05/31 13:14 Acuity: DENTON 2 iw 13:14 Chief complaint: EMS states: were toned out for pt feeling dizzy, also had blood in her iw catheter and it was slipping out and needed to be replaced, BS was noted to be 59. Coronavirus screen: At this time, the client does not indicate any symptoms associated with coronavirus-19. Ebola Screen: Patient negative for fever greater than or equal to 101.5 degrees Fahrenheit, and additional compatible Ebola Virus Disease symptoms Patient denies exposure to infectious person. Patient denies travel to an Ebola-affected area in the 21 days before illness onset. No symptoms or risks identified at this time. Initial Sepsis Screen: Does the patient meet any 2 criteria? No. Patient's initial sepsis screen is negative. Does the patient have a suspected source of infection? No. Patient's initial sepsis screen is negative. Risk Assessment: Do you want to hurt yourself or someone else? Patient reports no desire to harm self or others. Onset of symptoms was May 31, 2020. 13:14 Method Of Arrival: EMS: [facility] iw Historical: - Allergies: 13:33 Aspirin; iw 13:33 Ibuprofen; iw 13:33 PENICILLINS; iw - Home Meds: 13:33 amitriptyline 10 mg Oral tab 1 tab 3 times per day [Active]; carvedilol 12.5 mg Oral iw tab 1 tab 2 times per day [Active]; furosemide 20 mg Oral tab 1 tab once daily [Active]; gabapentin 300 mg Oral cap 1 cap 3 times per day [Active]; metformin 500 mg Oral cpER 2 tabs once daily [Active]; potassium chloride 20 mEq Oral cpER 1 tab once daily [Active]; valsartan 160 mg Oral tab 1 tab once daily [Active]; venlafaxine 150 mg Oral cp24 1 cap once daily [Active]; - PMHx: 13:33 Anxiety; CHF; claustrophobia; COPD; Diabetes - NIDDM; Panic Attacks; Rheumatoid iw Arthritis; - Immunization history:: Adult Immunizations up to date. - Social history:: Smoking status: Patient denies any tobacco usage or history of. Screenin:45 Abuse screen: Denies threats or abuse. Denies injuries from another. Nutritional dm14 screening: Difficulty chewing/swallowing? Yes Pt has no teeth. Tuberculosis screening: No symptoms or risk factors identified. Fall Risk None identified. Assessment: 12:28 General: Appears in no apparent distress. comfortable, Behavior is calm, cooperative, dm14 appropriate for age. Pain: Denies pain. 12:28 Reassessment: Blood glucose level of 54. Cochrane given, but pt unable to chew it. dm14 14:15 Reassessment: Luba-care given prior to catheter reinsertion. Buttocks noted to be very dm14 excoriated and bleeding in spots. Calazime cream applied. 15:00 Reassessment: Blood glucose level of 78. dm14 16:30 Reassessment: Pt repositioned. no change in overall condition. Denies feeling dizzy dm14 when blood pressure is low. 18:30 Reassessment: Pt repositioned. Rome draining a small amount of sanguinous urine. dm14 Vital Signs: 12:50 BP 74 / 63; Pulse 93; Resp 18; Pulse Ox 97% ; dm14 13:15 BP 62 / 32; Pulse 86; Resp 18; Pulse Ox 95% ; dm14 13:21 BP 94 / 65; Pulse 89; Resp 16; Pulse Ox 100% on R/A; iw 13:45 BP 105 / 69; Pulse 86; Resp 18; Pulse Ox 98% ; dm14 14:15 BP 111 / 74; Pulse 89; Resp 18; Pulse Ox 100% ; dm14 14:45 BP 100 / 72; Pulse 88; Resp 18; Pulse Ox 100% ; dm14 15:00 BP 89 / 65; Pulse 86; Resp 16; Pulse Ox 96% ; dm14 16:30 BP 72 / 45; Pulse 88; Resp 18; Pulse Ox 99% ; dm14 16:40 BP 72 / 50 (man/); dm14 17:00 BP 88 / 66; Pulse 83; Resp 18; Pulse Ox 96% ; dm14 17:30 BP 88 / 59; Pulse 82; Resp 100; Temp 97.5; dm14 18:11 BP 92 / 63; Pulse 85; Resp 16; Pulse Ox 98% on R/A; dh4 18:30 BP 101 / 63; Pulse 82; Resp 14; Pulse Ox 100% ; dm14 19:00 BP 107 / 66; Pulse 84; Resp 14; Pulse Ox 98% on R/A; rv 19:15 BP 117 / 72; Pulse 84; Resp 15; Pulse Ox 98% on R/A; rv 19:30 BP 113 / 70; Pulse 79; Resp 14; Pulse Ox 98% on R/A; rv 19:45 BP 112 / 67; Pulse 85; Resp 15; Pulse Ox 98% on R/A; rv 20:00 BP 105 / 59; Pulse 85; Resp 14; Pulse Ox 98% on R/A; rv 21:00 BP 125 / 83; Pulse 88; Resp 18; Pulse Ox 98% on R/A; rv 22:00 BP 114 / 81; Pulse 85; Resp 16; Pulse Ox 98% on R/A; Weight 90.72 kg (R); rv 22:30 BP 112 / 80; Pulse 81; Resp 17; Pulse Ox 98% on R/A; rv ED Course: 12:31 Patient arrived in ED. iw 12:33 Suhail Vail PA is PHCP. jmm 12:33 Saad Navarrete MD is Attending Physician. jmm 12:55 Marce Kay, CHRISTOPH is Primary Nurse. dm14 13:15 Triage completed. iw 14:45 Inserted saline lock: 20 gauge in right antecubital area, using aseptic technique. dm14 14:45 Patient has correct armband on for positive identification. Bed in low position. Call dm14 light in reach. Side rails up X2. 15:14 Rome cath inserted, using sterile technique, 18 Fr., by ri, balloon inflated, urine dh4 specimen collected. 16:55 CT Abd/Pelvis - Without Contrast In Process Unspecified. EDMS 17:27 Chest Single View XRAY In Process Unspecified. EDMS 18:00 initiated a transfer with [facility] from the [facility]. eb 18:34 [facility] called and stated that they were waiting for urology to call them. tt3 18:48 [facility] called and was conneted with GEMA Saleh, pt provider along with their tt3 physician. 18:58 [facility] called and stated that the bed was not quite ready yet that she would call back tt3 when the bed was ready. 20:28 María Chris gave admin approval. The accepting physician is Dr. Monge. Dr. Monge tt3 accepted at 1854. The pt is going to [facility] [address] Bed 7104. Nurse to call report to . Face sheet and covid result faxed to per María's request. 21:42 Assisted provider with central line placement. Set up central line tray. Triple lumen rv line placed in right femoral. Line placed by Suhail RIBEIRO Placement verified by blood return, Dressed with Tegaderm, Patient tolerated well. Administered Medications: 13:12 Drug: NS 0.9% 500 ml Route: IV; Rate: bolus; Site: right antecubital; dm14 16:25 Drug: Rocephin - (cefTRIAXone) 1 grams Route: IVPB; Infused Over: 30 mins; Site: right dm14 antecubital; 18:15 Drug: NS 0.9% 1000 ml Route: IV; Rate: 1 bolus; Site: right antecubital; dm14 18:45 Drug: Meropenem 1 grams Route: IV; Rate: calculated rate; Site: right antecubital; dm14 Outcome: 20:39 ER care complete, transfer ordered by MD. soria 23:40 Patient left the ED. lisha Addendum: 06/06/2020 07:29 Addendum: Culture Results: Positive urine culture. Called [facility] [phone] e b informed Alyce of positive culture report. fax number [phone]. Signatures: Dispatcher [employer] EDMS Suhail Vail PA PA jmm Williams, Irene, RN RN iw Antunez, Elena RN Caridad Trivedi ea, Ronaldo RN Oskar Segovia [facility] Fabricio Ortiz 3 Marce Kay RN RN dm14 Corrections: (The following items were deleted from the chart) 05/31 15:17 15:14 Social history: Smoking status: Patient denies any tobacco usage or history of. dm14 dm14 15:14 General: Appears in no apparent distress. comfortable, Behavior is calm, dm14 cooperative, appropriate for age, dm14 15: Pain: Denies pain. dm14 dm14
--- NOTE | 2020-05-31 20:40 | EDPHYS ---
Physician Documentation [facility] Name: Anita Harp Age: 70 yrs Sex: Female : 1950 Arrival Date: 05/31/2020 Time: 12:31 Bed 20 Private MD: ED Physician Saad Navarrete HPI: 05/31 12:33 This 70 yrs old Black Female presents to ER via EMS with complaints of catheter needs jmm to be changed and blood in urine. 12:33 The patient presents with Catheter needs to be changed and blood in urine. Onset: The jmm symptoms/episode began/occurred today. Patient presents with hematuria and urinary catheter is falling out. She reports having a catheter since last year but does not know why and she comes here to have it changed. She also reports she has low blood pressure but has no complaints regarding it. She is aware she has low blood sugar and does not want the oral glucose as it tastes bad. . 12:52 Upon ED arrival, Brito system filled with dark brown/red fluid. . jmm Historical: - Allergies: 13:33 Aspirin; iw 13:33 Ibuprofen; iw 13:33 PENICILLINS; iw - Home Meds: 13:33 amitriptyline 10 mg Oral tab 1 tab 3 times per day [Active]; carvedilol 12.5 mg Oral iw tab 1 tab 2 times per day [Active]; furosemide 20 mg Oral tab 1 tab once daily [Active]; gabapentin 300 mg Oral cap 1 cap 3 times per day [Active]; metformin 500 mg Oral cpER 2 tabs once daily [Active]; potassium chloride 20 mEq Oral cpER 1 tab once daily [Active]; valsartan 160 mg Oral tab 1 tab once daily [Active]; venlafaxine 150 mg Oral cp24 1 cap once daily [Active]; - PMHx: 13:33 Anxiety; CHF; claustrophobia; COPD; Diabetes - NIDDM; Panic Attacks; Rheumatoid iw Arthritis; - Immunization history:: Adult Immunizations up to date. - Social history:: Smoking status: Patient denies any tobacco usage or history of. ROS: 12:37 Cardiovascular: Negative for chest pain, palpitations, and edema, Respiratory: Negative jmm for shortness of breath, cough, wheezing, and pleuritic chest pain, MS/Extremity: Negative for injury and deformity, Skin: Negative for injury, rash, and discoloration, Neuro: Negative for headache, weakness, numbness, tingling, and seizure. 12:37 Abdomen/GI: Positive for Peg tube. 12:37 : Positive for hematuria, Catheter in place. Exam: 12:38 Head/Face: atraumatic. Neck: Trachea midline, Supple Chest/axilla: Normal chest wall [facility] appearance and motion. Cardiovascular: Regular rate and rhythm. No edema appreciated Respiratory: Normal respirations, no respiratory distress appreciated Skin: General appearance color normal MS/ Extremity: Moves all extremities, no obvious deformities appreciated, no edema noted to the lower extremities Neuro: Awake and alert, normal gait 12:38 Abdomen/GI: Inspection: obese Peg tube, Bowel sounds: normal, in all quadrants, Palpation: abdomen is soft and non-tender, in all quadrants. 12:38 : CVA tenderness, noted bilaterally, Bladder: Urinary catheter in place, a brito is noted. 12:51 : Bladder: [facility] Vital Signs: 12:50 BP 74 / 63; Pulse 93; Resp 18; Pulse Ox 97% ; dm14 13:15 BP 62 / 32; Pulse 86; Resp 18; Pulse Ox 95% ; dm14 13:21 BP 94 / 65; Pulse 89; Resp 16; Pulse Ox 100% on R/A; iw 13:45 BP 105 / 69; Pulse 86; Resp 18; Pulse Ox 98% ; dm14 14:15 BP 111 / 74; Pulse 89; Resp 18; Pulse Ox 100% ; dm14 14:45 BP 100 / 72; Pulse 88; Resp 18; Pulse Ox 100% ; dm14 15:00 BP 89 / 65; Pulse 86; Resp 16; Pulse Ox 96% ; dm14 16:30 BP 72 / 45; Pulse 88; Resp 18; Pulse Ox 99% ; dm14 16:40 BP 72 / 50 (man/); dm14 17:00 BP 88 / 66; Pulse 83; Resp 18; Pulse Ox 96% ; dm14 17:30 BP 88 / 59; Pulse 82; Resp 100; Temp 97.5; dm14 18:11 BP 92 / 63; Pulse 85; Resp 16; Pulse Ox 98% on R/A; dh4 18:30 BP 101 / 63; Pulse 82; Resp 14; Pulse Ox 100% ; dm14 19:00 BP 107 / 66; Pulse 84; Resp 14; Pulse Ox 98% on R/A; rv 19:15 BP 117 / 72; Pulse 84; Resp 15; Pulse Ox 98% on R/A; rv 19:30 BP 113 / 70; Pulse 79; Resp 14; Pulse Ox 98% on R/A; rv 19:45 BP 112 / 67; Pulse 85; Resp 15; Pulse Ox 98% on R/A; rv 20:00 BP 105 / 59; Pulse 85; Resp 14; Pulse Ox 98% on R/A; rv 21:00 BP 125 / 83; Pulse 88; Resp 18; Pulse Ox 98% on R/A; rv 22:00 BP 114 / 81; Pulse 85; Resp 16; Pulse Ox 98% on R/A; Weight 90.72 kg (R); rv 22:30 BP 112 / 80; Pulse 81; Resp 17; Pulse Ox 98% on R/A; rv Procedures: 20:34 Central Line: the site was prepped with Betadine, a triple lumen catheter was inserted, [facility] in the right femoral vein, placement was verified, by blood return, the site was dressed with 4X4s, using sterile technique, the patient tolerated the procedure. MDM: 12:33 Patient medically screened. [facility] 12:40 Data reviewed: vital signs, nurses notes, EMS record, lab test result(s), EKG. [facility] 20:34 ED course: patient's bp has improved with ns bolus. I discussed the patient with [facility] ICU physician whom accepted the patient but requested central line access if there were any concerns the patient's BP would lower. Patient is currently alert and non toxic in appearance in the ED on disposition. . 05/31 12:51 Order name: Glucose, Ancillary Testing; Complete Time: 12:56 [facility] 05/31 12:51 Order name: Glucose, Ancillary Testing [facility] 05/31 12:51 Order name: Basic Metabolic Panel; Complete Time: 13:50 [facility] 05/31 12:51 Order name: CBC with Diff; Complete Time: 13:33 [facility] 05/31 12:51 Order name: Magnesium; Complete Time: 13:50 [facility] 05/31 12:51 Order name: Urine Microscopic Only; Complete Time: 16:21 [facility] 05/31 15:20 Order name: Glucose, Ancillary Testing; Complete Time: 15:25 [facility] 05/31 16:18 Order name: Urine Culture [facility] 05/31 16:36 Order name: Blood Culture Adult (2) [facility] 05/31 16:36 Order name: Lactate; Complete Time: 17:49 [facility] 05/31 16:36 Order name: Procalcitonin; Complete Time: 18:22 [facility] 05/31 17:02 Order name: Troponin (emerg Dept Use Only); Complete Time: 18:49 [facility] 05/31 18:58 Order name: COVID-19 : Document "Date of Symptom Onset" if Symptomatic. tt3 05/31 19:44 Order name: CORONAVIRUS [facility] 05/31 12:51 Order name: Cardiac monitoring; Complete Time: 15:03 [facility] 05/31 12:51 Order name: EKG - Nurse/Tech; Complete Time: 18:47 [facility] 05/31 12:51 Order name: IV Saline Lock; Complete Time: 15:03 [facility] 05/31 12:51 Order name: Labs collected and sent; Complete Time: 15:03 [facility] 05/31 12:51 Order name: O2 Per Protocol; Complete Time: 15:03 [facility] 05/31 12:51 Order name: O2 Sat Monitoring; Complete Time: 15:04 [facility] 05/31 12:51 Order name: Urine Dipstick-Ancillary (obtain specimen); Complete Time: 21:55 [facility] 05/31 12:51 Order name: Fingerstick Glucose; Complete Time: 13:06 [facility] 05/31 13:21 Order name: Diet Clear Liquid; Complete Time: 13:21 05/31 16:42 Order name: CT Abd/Pelvis - Without Contrast; Complete Time: 17:19 [facility] 05/31 17:02 Order name: Chest Single View XRAY; Complete Time: 18:01 [facility] 05/31 20:25 Order name: SARS-COV-2 RT PCR; Complete Time: 20:33 [facility] 05/31 12:51 Order name: Brito: Change out brito.; Complete Time: 15:02 [facility] Administered Medications: 13:12 Drug: NS 0.9% 500 ml Route: IV; Rate: bolus; Site: right antecubital; dm14 16:25 Drug: Rocephin - (cefTRIAXone) 1 grams Route: IVPB; Infused Over: 30 mins; Site: right dm14 antecubital; 18:15 Drug: NS 0.9% 1000 ml Route: IV; Rate: 1 bolus; Site: right antecubital; dm14 18:45 Drug: Meropenem 1 grams Route: IV; Rate: calculated rate; Site: right antecubital; dm14 Disposition: 06/01 06:47 Co-signature as Attending Physician, Saad Navarrete MD I agree with the assessment and kdr plan of care. Disposition: 05/31/20 20:39 Transfer ordered to [facility]. Diagnosis are Hypotension, Urinary tract infection, site not specified, Calculus of kidney and ureter. - Reason for transfer: Higher level of care. - Accepting physician is Melanie. - Condition is Stable. - Problem is new. - Symptoms have improved. Signatures: Dispatcher [employer] EDMS Saad Navarrete MD MD kdr Mickail, Joel, PA PA jmm Williams, Irene, RN Peggy Reeves RN Marce Moss ea RN RN dm14 Corrections: (The following items were deleted from the chart) 05/31 15:17 15:14 Social history: Smoking status: Patient denies any tobacco usage or history of. dm14 dm14 18:48 17:00 Orthostatics ordered. yang iw 23:40 20:39 05/31/2020 20:39 Transfer ordered to [facility]. ea Diagnosis is Hypotension; Urinary tract infection, site not specified; Calculus of kidney and ureter. Reason for transfer: Higher level of care. Accepting physician is Melanie. Condition is Stable. Problem is new. Symptoms have improved. [facility]
[2020-06-01 02:00] VITALS: TEMP 97.5
[2020-06-01 02:04] VITALS: O2SAT 98
[2020-06-01 02:22] VITALS: BP 112/80
== END 2020-05-31 23:40 | disposition short-term general hospital (02) ==
LOC: ER 12:13
PROC: 06HM33Z Insertion of Infusion Device into Right Femoral Vein, Percutaneous Approach (ICD-10-PCS; principal; 2020-05-31)
DX: N39.0 Urinary tract infection, site not specified (principal); N20.2 Calculus of kidney with calculus of ureter; Z20.822 Contact with and (suspected) exposure to COVID-19; E11.9 Type 2 diabetes mellitus without complications; F41.9 Anxiety disorder, unspecified; I50.9 Heart failure, unspecified; J44.9 Chronic obstructive pulmonary disease, unspecified; Z88.0 Allergy status to penicillin; Z88.6 Allergy status to analgesic agent
CPT/HCPCS: 93005; 87040 ×2; 87088; 85025; 87086; 80048; 36415; 83735; 82947 ×2; 83605; 87077; 87186; 81015; 84484; 84145; 74176; 71045; 51702; 96375; 96374; 99285; 36556; U0003; J0696; J2185; J7040; J7030

== ENCOUNTER 2020-07-08 14:21 | Inpatient (IN) | payer OTHER ==
--- OUTSIDE RECORDS SUMMARY | 2020-07-08 14:28 | XMS REPORT | Continuity of Care Document ---
:1950 Author Organization [facility] t Address [address] [place] [address] Care Team Providers Name Role Phone Vianney Galan DO Primary Care Physician Julio GROSSMAN Attending Clinician Sharon Fang MD Attending Clinician Olvin URIBE Attending Clinician Mayda Perez MD Attending Clinician Susan Gaona MD Attending Clinician Sharon FANG Attending Clinician Unavailable Luis Jacome MD Attending Clinician Lori Calvo CRNA Attending Clinician Mariella URIBE Attending Clinician SARAH Attending Clinician Unavailable Sharon FANG Admitting Clinician Unavailable SARAH Admitting Clinician Unavailable Payers Payer Name Policy Type Policy Effective Date Expiration Date Sour ce Number [facility] [id number] [facility] - MEDICARE MGD 00:00:00 - Medical CAREAARP/MEDICARE Center [id number] 2020-Present Problems Condition Condition Condition Status Onset Resolution Last Treating Co mments Source Name Details Category Date Date Treatment Clinician Date Urinary Urinary Disease Active [facility] - infection infection 00:00: Medi may associated associated 00 Ce nter with with indwelling indwelling urethral urethral catheter catheter Hypotensio Hypotensio Disease Resolve 2020-06-10 2020-06-[address] [facility] n n d 3-06 00:00:00 20:49:19 [facility] - 00:00: Medical 00 Center Allergies, Adverse Reactions, Alerts Allergy Allergy Status Severity Reaction(s) Onset Inactive Treating Comm ents Source Name Type Date Date Clinician Aspirin Propensi Active [facility] to 3- [facility] - adverse 00:00: Medical reaction 00 Center s Ibuprofe Propensi Active [facility] ty to 06-01 [facility] - adverse 00:00: Medical reaction 00 Center s Penicill Propensi Active [facility] ins ty to 06-01 [facility] - adverse 00:00: Medical reaction 00 Center s Acetamin Drug Active Nausea And [facility] ophen-Co Allergy Vomiting 10-22 [facility] - deine 00:00: Medical 00 Center Social History Social Habit Start Date Stop Date Quantity Comments Source History SDOH [facility] - Alcohol Std Drinks Medica [facility] History SDOH [facility] - Alcohol Binge Medical [facility] Sex Assigned At [facility] k[facility] Tobacco use and 2020-06-20 2020-06-[address] Kin[facility] kes - exposure 00:00:00 00:00:00 [facility] Alcohol intake 2020-06-20 2020-06-[address] [facility] - 00:00:00 00:00:00 non-drinker Medical [place] (finding) History SDOH 2020-06-20 2020-06-[address] [facility] - Alcohol Frequency 00:00:00 00:00:00 [facility] Smoking Status Start Date Stop Date Source Never smoker [facility] Medications Ordered Filled Start Stop Current Ordering Indication Dosage Frequency Signature Comments Components Source Medication Medication Date Date Medication? Clinician (SIG) Name Name mirtazapine Yes 30mg QD Take [address] [address] (REMERON) 3-25 by mouth [facility] - 30 MG 11:25: nightly. Medical tablet 59 Center blood sugar Yes 1{strip QD [address] diagnostic 3-25 } Miscellane Shane es - (glucose 00:00: ous route Medi may blood) Strp [address] touch ultra strips, sugar check daily. traZODone Yes 150mg QD Take [address] (DESYREL) 3-22 mg by [facility] - 150 MG 00:00: mouth Medical tablet 00 nightly. Center folic acid Yes 1mg QD Take 1 [facility] (FOLVITE) 1 3-16 tablet (1 Shane es - MG tablet 00:00: mg total) Med ical 00 by mouth Center daily. polyethylen Yes 17g QD Take [address] e glycol 3-16 by mouth [facility] - (GLYCOLAX) 00:00: daily For Me dical 17 gram 00 constipati Center packet on. Hold if loose stool.. magnesium Yes 400mg QD Take 1 [facility] oxide 3-[address] [facility] - (MAG-OX) 00:00: (400 mg Medica l 400 mg 00 total) by Center (241.3 mg mouth magnesium) daily. tablet famotidine Yes 1{tbl} Q.5D Take [address] (PEPCID) 20 3-12 tablet by Shane es - MG tablet 00:00: mouth 2 Medic al 00 (two) Center times daily. carvediloL 2020- No 1{tbl} Q.5D Take [address] (COREG) 3-03 03-15 tablet by [facility] - 12.5 MG 00:00: 00:00 mouth 2 Medica l tablet 00 :00 (two) Center times daily. potassium Yes 2{packe QD Take [address] chloride 3-01 t} packets by [facility]ukes - (KLOR-CON) 00:00: mouth Medica l 20 mEq 00 daily. Center packet Symbicort Yes 2{puff} Q.5D Inhale [address] 80-4.5 2-27 puffs by [facility]ukes - mcg/actuati 00:00: mouth via M edical on inhaler 00 inhaler 2 Cent er (two) times daily. Victoza 2020- No 1.8mg QD Inject 1.[address] 3-Walker 0.6 2-27 03-15 mg [facility] - mg/0.1 mL 00:00: 00:00 subcutaneo M edical (18 mg/3 00 :00 usly Center mL) PnIj daily. albuterol Yes 2{puff} Inhale [address] HFA 2-15 puffs by [facility] - (VENTOLIN 00:00: mouth via Med ical HFA) 90 00 inhaler Center mcg/actuati every 4 on inhaler (four) hours as needed for Wheezing. venlafaxine Yes 150mg QD Take [address] (EFFEXOR-XR 2-15 mg by [facility] - ) 150 MG 24 00:00: mouth Medic al hr capsule [address] WITH FOOD. hydrOXYzine 2020- No 25mg QD Take [address] (ATARAX) 25 2-15 03-25 by mouth Shane es - MG tablet 00:00: 00:00 nightly. Med ical 00 :00 [place] venlafaxine 2020- No 75mg QD Take [address] (EFFEXOR-XR 2-15 03-25 by mouth Shane es - ) 75 MG 24 00:00: 00:00 daily. Medi may hr capsule 00 :00 [place] furosemide 2020- No 1{tbl} QD Take [address] (LASIX) 20 2-15 03-15 tablet by Shane es - MG tablet 00:00: 00:00 mouth Medica l 00 :00 daily. [place] losartan 2020- No 50mg QD Take [address] (COZAAR) 50 2-15 03-15 by mouth Shane es - MG tablet 00:00: 00:00 daily. Medic al 00 :00 [place] mirtazapine 2020- No 15mg QD Take [address] (REMERON) 1-27 03-25 by mouth [facility]ukes - 15 MG 00:00: 00:00 nightly. Medical tablet 00 :00 [place] albuterol Yes 3mL Take [address] (PROVENTIL) 1-20 by [facility]ukes - 2.5 mg /3 00:00: nebulizati Me dical mL (0.083 00 on every 4 Cent er %) (four) nebulizer hours as solution needed for Wheezing. Eliquis 5 Yes 5mg Q.5D Take [address] MG tablet 1-03 by mouth 2 Luke s - 00:00: (two) Medical 00 times Center daily. Prevalite 4 Yes 2{packe QD Take [address] gram PwPk 1-03 t} packets by Luke s - packet 00:00: mouth Medical 00 daily Mix Center with water and drink. Vital Signs Vital Name Observation Time Observation Value Comments Source Systolic blood 2020-06-20 11:15:00 123 mm[Hg] [facility] Diastolic blood 2020-06-20 11:15:00 77 mm[Hg] [facility] Heart rate 2020-06-20 11:15:00 93 /min [facility] Respiratory rate 2020-06-20 11:15:00 18 /min [facility] Body height 2020-06-20 11:15:00 162.6 cm [facility] Body weight 2020-06-20 11:15:00 107.956 kg [facility] BMI 2020-06-20 11:15:00 40.85 kg/m2 [facility] Body temperature 2020-06-10 16:00:00 36.22 Rylie [facility] Oxygen saturation in 2020-06-10 16:00:00 99 /min [facility] Arterial blood by Medical Ce nter Pulse oximetry Procedures Procedure Date / Time Performing Clinician Source Performed POCT-GLUCOSE METER 2020-06-10 12:03:00 Gaona, Jolanta [facility] POCT-GLUCOSE METER 2020-06-10 07:20:00 Gaona, Jolanta [facility] CBC (HEMOGRAM ONLY) 2020-06-10 04:52:00 Gaona, [facility] BASIC METABOLIC PANEL (7) 2020-06-10 04:52:00 Gaona, Jolanta [facility] MAGNESIUM 2020-06-10 04:52:00 Gaona, Jolanta Davis [facility] POCT-GLUCOSE METER 2020-06-09 21:01:00 [facility]SE [facility]ER 2020-06-09 16:32:00 Gaona, Jolanta Davis [facility] CT ABDOMEN/PELVIS WITH IV 2020-06-09 12:53:00 Gaona, Jolanta Davis [facility] POCT-GLUCOSE METER 2020-06-09 11:52:00 Gaona, Jolanta Davis [facility] SARS-COV2/RT-PCR ([facility] & 2020-06-09 10:39:00 Gaona, Jolanta Perry [facility]) [facility] HEMOGLOBIN AND HEMATOCRIT 2020-06-09 10:36:00 Gaona, [facility] CBC (HEMOGRAM ONLY) 2020-06-09 04:53:00 Gaona, [facility] BASIC METABOLIC PANEL (7) 2020-06-09 04:53:00 [facility] 2020-06-09 04:53:00 Gaona, Jolanta Davis [facility] HEPATIC FUNCTION PANEL 2020-06-09 04:53:00 Gaona, Jolanta [facility] POCT-GLUCOSE METER 2020-06-09 03:24:00 Gaona, [facility] PREPARE LEUKO-REDUCED RBC 2020-06-08 23:54:00 LugoWilfrid mcneil [facility] POCT-GLUCOSE METER 2020-06-08 20:17:00 Gaona, Jolanta Davis [facility] POCT-GLUCOSE METER 2020-06-08 17:08:00 Gaona, Jolanta [facility] POCT-GLUCOSE METER 2020-06-08 16:19:00 Gaona, Jolanta Susan [facility] XR ABDOMEN / KUB 1 VIEW 2020-06-08 12:40:00 Gaona, Jolanta Davis I [facility] POCT-GLUCOSE METER 2020-06-08 11:54:00 [facility] POCT-[facility]SE METER 2020-06-08 11:13:00 Gaona, [facility] POCT-GLUCOSE METER 2020-06-08 10:51:00 Gaona, [facility] POCT-GLUCOSE METER 2020-06-08 10:38:00 Gaona, [facility] POCT-GLUCOSE METER 2020-06-08 08:56:00 Gaona, [facility] POCT-GLUCOSE METER 2020-06-08 08:27:00 Gaona, [facility] POCT-GLUCOSE METER 2020-06-08 07:52:00 Gaona, [facility] CBC (HEMOGRAM ONLY) 2020-06-08 06:02:00 Gaona, [facility] BASIC METABOLIC PANEL (7) 2020-06-08 06:02:00 Gaona, [facility] HEPATIC FUNCTION PANEL 2020-06-08 06:02:00 Gaona, [facility] POCT-GLUCOSE METER 2020-06-07 20:34:00 Gaona, [facility] POCT-GLUCOSE METER 2020-06-07 16:34:00 Gaona, [facility] HEMOGLOBIN AND HEMATOCRIT 2020-06-07 11:24:00 Gaona, [facility] POCT-GLUCOSE METER 2020-06-07 10:54:00 Gaona, [facility] TRANSFUSE LEUKO-REDUCED 2020-06-07 09:34:53 LugoWilfrid mcneil [facility] RED BLOOD CELLS [facility] POCT-GLUCOSE METER 2020-06-07 07:06:00 Gaona, [facility] ABORH, MANUAL 2020-06-07 04:15:00 Maira Pepper [facility] TYPE AND SCREEN, 2020-06-07 04:03:00 Wilfrid Lugo [facility] US EXTREMITY NON-VASCULAR 2020-06-07 02:58:00 Wilfrid Lugo [facility] BLOOD CULTURE 2020-06-07 01:27:00 Wilfrid Lugo [facility] MAGNESIUM 2020-06-07 01:27:00 Andres [facility] PHOSPHORUS 2020-06-07 01:27:00 Andres [facility] CBC (HEMOGRAM ONLY) 2020-06-07 01:27:00 [facility]OLIC PANEL (7) 2020-06-07 01:27:00 [facility] POCT-GLUCOSE METER 2020-06-06 21:18:00 [facility] POCT-GLUCOSE METER 2020-06-06 17:02:00 Gaona, Jolanta [facility] MAGNESIUM 2020-06-06 13:54:00 Andres [facility] PHOSPHORUS 2020-06-06 13:54:00 Andres [facility] CBC (HEMOGRAM ONLY) 2020-06-06 13:54:00 Gaona, Jolanta [facility] BASIC METABOLIC PANEL (7) 2020-06-06 13:54:00 Gaona, Jolanta [facility] POCT-GLUCOSE METER 2020-06-06 12:15:00 Gaona, Jolanta [facility] POCT-GLUCOSE METER 2020-06-06 07:58:00 Gaona, [facility] PROTHROMBIN TIME/INR 2020-06-06 05:31:00 Andres [facility] POCT-GLUCOSE METER 2020-06-05 20:52:00 Gaona, Jolanta [facility] POCT-GLUCOSE METER 2020-06-05 17:08:00 Gaona, Jolanta [facility] HEMOGLOBIN AND HEMATOCRIT 2020-06-05 12:04:00 Gaona, Jolanta [facility] POCT-GLUCOSE METER 2020-06-05 12:03:00 Gaona, Jolanta [facility] POCT-GLUCOSE METER 2020-06-05 09:26:00 Gaona, Jolanta [facility] PROTHROMBIN TIME/INR 2020-06-05 04:25:00 Andres [facility] CBC W/PLT COUNT & AUTO 2020-06-05 03:48:00 [facility] 2020-06-05 03:48:00 Andres [facility] COMPREHENSIVE METABOLIC 2020-06-05 03:47:00 Andres [facility] MAGNESIUM 2020-06-05 03:47:00 Andres [facility] PHOSPHORUS 2020-06-05 03:47:00 Andres [facility] POCT-GLUCOSE METER 2020-06-04 22:17:00 [facility] MAGNESIUM 2020-06-04 22:08:00 Andres [facility] BASIC METABOLIC PANEL (7) 2020-06-04 22:08:00 [facility]res [facility] PHOSPHORUS 2020-06-04 22:08:00 Andres [facility] POCT-GLUCOSE METER 2020-06-04 16:32:00 [facility] MAGNESIUM 2020-06-04 14:46:00 Andres [facility] PHOSPHORUS 2020-06-04 14:46:00 Andres [facility] BASIC METABOLIC PANEL (7) 2020-06-04 14:46:00 [facility]res [facility] POCT-GLUCOSE METER 2020-06-04 11:32:00 Mauricio Perez [facility] POCT-GLUCOSE METER 2020-06-04 06:45:00 Mauricio Perez [facility] CBC W/PLT COUNT & AUTO 2020-06-04 04:59:[address] [facility] COMPREHENSIVE METABOLIC 2020-06-04 04:59:00 Andres [facility] MAGNESIUM 2020-06-04 04:59:00 Andres [facility] CALCIUM, IONIZED 2020-06-04 04:59:00 Andres [facility] PROTHROMBIN TIME/INR 2020-06-04 04:59:00 Andres [facility] PHOSPHORUS 2020-06-04 04:59:00 Andres [facility] POCT-GLUCOSE METER 2020-06-04 02:12:00 Chris [facility] POCT-GLUCOSE METER 2020-06-03 16:17:00 [facility] PHOSPHORUS 2020-06-03 15:28:00 Deb Oliva [facility] POCT-GLUCOSE METER 2020-06-03 12:11:00 Chris [facility] EQUAL MIX, NORMAL PLASMA 2020-06-03 10:01:00 Xena Ambriz [facility] BASIC METABOLIC PANEL (7) 2020-06-03 08:58:[address] [facility] POCT-GLUCOSE METER 2020-06-03 08:57:00 Chris [facility] POCT-GLUCOSE METER 2020-06-03 06:34:00 [facility] POCT-GLUCOSE METER 2020-06-03 04:03:00 Chris, [facility] CALCIUM, IONIZED 2020-06-03 03:59:[address] [facility] CBC W/PLT COUNT & AUTO 2020-06-03 03:59:00 Gerald [facility] DIFFERENTIAL [facility] MAGNESIUM 2020-06-03 03:59:00 Serkary [facility] PHOSPHORUS 2020-06-03 03:59:00 Serkary [facility] COMPREHENSIVE METABOLIC 2020-06-03 03:59:00 Gerald [facility] PANEL [facility] POCT-GLUCOSE METER 2020-06-03 02:01:00 Chris [facility] POCT-GLUCOSE METER 2020-06-02 23:27:00 Chris [facility] POCT-GLUCOSE METER 2020-06-02 22:22:00 Chris [facility] POCT-GLUCOSE METER 2020-06-02 21:46:00 Chris [facility] US ABDOMEN COMPLETE 2020-06-02 21:00:00 Britney Campos [facility] POCT-GLUCOSE METER 2020-06-02 20:44:00 Chris [facility] POCT-GLUCOSE METER 2020-06-02 19:16:00 Chris [facility] BASIC METABOLIC PANEL (7) 2020-06-02 17:34:[address] [facility] POCT-GLUCOSE METER 2020-06-02 17:33:00 Chris [facility] POCT-GLUCOSE METER 2020-06-02 16:40:00 Chris [facility] FL FLUORO NON-SPECIFIC UP 2020-06-02 15:36:00 Angel Wolff [address] URINALYSIS W/ REFLEX 2020-06-02 15:35:[facility] URINE CULTURE 2020-06-02 15:35:00 Mariella [facility] CYSTOSCOPY,INSERTION 2020-06-02 14:41:00 [facility] POCT-GLUCOSE METER 2020-06-02 14:30:00 Chris [facility] 2D ECHO W/ DOPPLER 2020-06-02 13:11:25 Gerald Jim [facility] (CW/PW/COLOR) [facility] POCT-GLUCOSE METER 2020-06-02 13:06:00 Chris [facility] POCT-GLUCOSE METER 2020-06-02 12:26:00 Chris [facility] POCT-GLUCOSE METER 2020-06-02 10:51:00 Chris [facility] POCT-GLUCOSE METER 2020-06-02 09:41:00 Chris [facility] BASIC METABOLIC PANEL (7) 2020-06-02 09:12:[address] [facility] POCT-GLUCOSE METER 2020-06-02 08:12:00 Chris [facility] POCT-GLUCOSE METER 2020-06-02 06:09:00 Olvin [facility] POCT-GLUCOSE METER 2020-06-02 05:46:00 [facility] BLOOD GAS, ARTERIAL 2020-06-02 04:31:00 Jmi Duarte [facility] POCT-GLUCOSE METER 2020-06-02 04:27:00 [facility] POCT-GLUCOSE METER 2020-06-02 04:04:00 [facility] CORTISOL,BASELINE 2020-06-02 03:55:00 Mauricio Zhao [facility] SARS-COV2/RT-PCR ([facility] & 2020-06-02 03:53:00 Elvin Donaldson [facility] - REF LABS) [facility] IRON, TIBC, % SAT. 2020-06-02 03:44:00 [facility] (WITHOUT FERRITIN) [facility] VIT[facility] B12 AND FOLATE 2020-06-02 03:44:00 [facility] FERRITIN 2020-06-02 03:44:00 [facility] CBC W/PLT COUNT & AUTO 2020-06-02 03:43:00 Xena Ambriz [facility] BASIC METABOLIC PANEL (7) 2020-06-02 03:43:00 [facility] HEMOGLOBIN A1C 2020-06-02 03:43:00 [facility] PROTHROMBIN TIME/INR 2020-06-02 03:43:00 [facility] LACTIC ACID, VENOUS 2020-06-02 03:43:00 [facility] CALCIUM, IONIZED 2020-06-02 03:43:00 [facility] INSUL[facility], FASTING 2020-06-02 03:43:00 Cece [facility] C-PEPTIDE 2020-06-02 03:43:00 Mauricio Zhao [facility] MAGNESIUM 2020-06-02 03:43:00 Sereniimtiaz [facility] PHOSPHORUS 2020-06-02 03:43:00 [facility] CORTISOL,60 MIN 2020-06-02 03:43:00 [facility] POCT-GLUCOSE METER 2020-06-02 02:58:00 [facility] 2020-06-02 02:54:00 [facility] CORTISOL,30 MIN 2020-06-02 02:54:00 [facility] POCT-GLUCOSE METER 2020-06-02 01:53:00 [facility] POCT-GLUCOSE METER 2020-06-02 00:41:00 [facility] ECG 12-LEAD 2020-06-01 22:59:26 Unknown, Hl7 Doctor [facility] COMPREHENSIVE METABOLIC 2020-06-01 22:53:00 [facility] MAGNESIUM 2020-06-01 22:53:00 [facility] B-TYPE NATRIURETIC FACTOR 2020-06-01 22:53:[address] [facility] (BNP) [facility] TROPONIN I 2020-06-01 22:53:00 Fidelia Fang [facility] CORTISOL 2020-06-01 22:53:00 [facility] TSH/FREE T4 IF INDICATED 2020-06-01 22:53:00 [facility] POCT-GLUCOSE METER 2020-06-01 22:41:00 [facility] POCT-GLUCOSE METER 2020-06-01 22:02:00 [facility] XR CHEST 1 VIEW 2020-06-01 22:00:00 [facility] ECG 12-LEAD 2020-06-01 21:34:48 [facility] CBC W/PLT COUNT & AUTO 2020-06-01 20:24:00 Xena Ambriz [facility] LACTIC ACID, VENOUS 2020-06-01 20:24:00 [facility] LACTIC ACID, VENOUS 2020-06-01 18:19:00 Arif, Lois [facility] XR CHEST 1 VIEW 2020-06-01 04:29:00 Fidelia Fang [facility] BLOOD CULTURE 2020-06-01 02:52:00 Fidelia Fang [facility] BLOOD CULTURE 2020-06-01 02:39:00 Fidelia Fang [facility] URINE CULTURE 2020-06-01 02:33:00 Fidelia Fang [facility] CBC W/PLT COUNT & AUTO 2020-06-01 02:33:00 Xena Ambriz [facility] COMPREHENSIVE METABOLIC 2020-06-01 02:33:00 Fidelia Fang [facility] PT/APTT 2020-06-01 02:33:00 Fidelia Fang [facility] LACTIC ACID, VENOUS 2020-06-01 02:33:00 Fidelia Fang [facility] URINALYSIS W/ REFLEX 2020-06-01 02:33:00 Fidelia Fang [facility] URINE CULTURE [facility] PROCALCITONIN 2020-06-01 02:33:00 Annalisa Fidelia T. [facility] Plan of Care Planned Activity Planned Date Details Comments Source Future Scheduled 2020-11-[address] [facility] - Test 00:00:00 (Season Ended) [code = [facility] INFLUENZA VACCINE (Season Ended)] Future Scheduled 2020-03-[address] [facility] - Test 00:00:00 (12+) [code = Medical Center DEPRESSION SCREENING (12+)] Future Scheduled 2020-03-29 Medicare IPPE (WELCOME [facility] 00:00:00 TO MEDICARE) [code = Medical Center Medicare IPPE (WELCOME TO MEDICARE)] Future Scheduled 2015 PNEUMOCOCCAL 65+ YRS [facility] - Test 00:00:00 (1 of 1 - Medical Center [id number]) [code = PNEUMOCOCCAL 65+ YRS (1 of 1 - [id number] PCV13)] Future Scheduled 2000-01-11 SHINGLES VACCINES ([address] [facility] - Test 00:00:00 of 2) [code = SHINGLES Medic al Center VACCINES (1 of 2)] Future Scheduled 1969 DTAP/TDAP/TD VACCINES [facility] - Test 00:00:00 (1 - Tdap) [code = Medical C enter DTAP/TDAP/TD VACCINES (1 - Tdap)] Future Scheduled 1968-01-11 HEPATITIS C [facility]CREENING [facility] - Test 00:00:00 [code = HEPATITIS C Medical Center SCREENING] Future Scheduled [address] [facility] - Test 00:00:00 [facility] breast (procedure) [code = 642628716] Future Scheduled [address] [facility] - Test 00:00:00 [facility] colon (procedure) [code = 343500969] Encounters Start End Encounter Admission Attending Care Care Encounter Source Date/Time Date/Time Type Type Clinicians Facility Department ID 2019-09-01 2019-09-[address] [facility] RAD [id number] [facility] 08:32:00 23:59:00 [facility] Results Test Description Test Time Test Comments Results Result Comments Source Blood Culture - Routine (Left Venipuncture) 2020-06-12 07:00 :00 Test Item Value Reference Range Interpretation Comme nts Result (test code = 6463-4) No growth in 5 days [facility] [id number] 07:00:00 Test Item Value Reference Range Interpretation Comments CULTURE (BEAKER) (test No growth in 5 days code = 1095) POC-Glucose [id number] 12:15:00 Test Item Value Reference Range Interpretation Comments POC-Glucose Meter (test 68 mg/dL 70-110 L : TE STED AT [facility] code = 1538) [address] [facility], 770 30: Button Inspector/Techni slick ID = [id number] for CONNIE ZUNIGA Lab Interpretation (test Abnormal code = 69213-4) [facility]SE [id number] 12:15:00 Test Item Value Reference Range Interpretation Comments POC-GLUCOSE METER 68 mg/dL 70-110 L : TESTED A T [id number] (BEAKER) (test code = TR[place], 1538) [address]: Button Inspector/Techni slick ID = [id number] for PAIGE CAVAZOS [id number] 08:23:00 Test Item Value Reference Range Interpretation Comments Magnesium (test code = 1.6 mg/dL 1.6-2.6 86594-0) PAOLA (test code = PAOLA) Button Inspector ID - MALINDA C Lab Interpretation (test Normal code = 65481-8) [facility]2021-[facility]-15 08:23:00 Test Item Value Reference Range Interpretation Comments MAGNESIUM (BEAKER) (test code = 1.6 mg/dL 1.6-2.6 627) Button Inspector ID - MALINDA CPOCT-GLUCOSE [id number] 07:32:00 Test Item Value Reference Range Interpretation Comments POC-GLUCOSE METER 74 mg/dL 70-110 : TESTED A T [facility] 6720 (BEAKER) (test code = TREVOR [place], 1538) [address]: Button Inspector/Techni slick ID = [id number] for DES JEWELL Basic Metabolic [id number] 05:36:00 Test Item Value Reference Range Interpretation Comments Sodium (test code = 134 meq/L 136-145 L 2951-2) Potassium (test code = 3.3 meq/L 3.5-5.1 L 2823-3) Chloride (test code = 104 meq/L 98-107 2075-0) CO2 (test code = 22 meq/L 22-29 2028-9) BUN (test code = 7 mg/dL 7-21 3094-0) Creatinine (test code 0.57 mg/dL 0.57-1.25 = 2160-0) Glucose (test code = 80 mg/dL 70-105 2345-7) Calcium (test code = 8.0 mg/dL 8.4-10.2 L 37300-0) EGFR (test code = 127 mL/min/1.73 sq [place] [address]-1) NOT ACCURATE CREATININE CLEARANCE IN PREDICTING GLOMERULAR FILTRATION RATE . ESTIMATED GFR I S NOT APPLICABLE FOR DIALYSIS PATIENTS. PAOLA (test code = PAOLA) Button Inspector ID - DARRELL Bassett Lab Interpretation Abnormal (test code = 52046-0) [facility] METABOLIC [id number] 05:36:00 Test Item Value Reference Range Interpretation Comments SODIUM (BEAKER) 134 meq/L 136-145 L (test code = 381) POTASSIUM (BEAKER) 3.3 meq/L 3.5-5.1 L (test code = 379) CHLORIDE (BEAKER) 104 meq/L 98-107 (test code = 382) CO2 (BEAKER) (test 22 meq/L 22-29 code = 355) BLOOD UREA NITROGEN 7 mg/dL 7-21 (BEAKER) (test code = 354) CREATININE (BEAKER) 0.57 mg/dL 0.57-1.25 (test code = 358) GLUCOSE RANDOM 80 mg/dL 70-105 (BEAKER) (test code = 652) CALCIUM (BEAKER) 8.0 mg/dL 8.4-10.2 L (test code = 697) EGFR (BEAKER) (test 127 mL/min/1.73 ESTIM ATED GFR IS code = 1092) sq m NOT ACCURATE CREATININE CLEARANCE IN PREDICTING GLOMERULAR FILTRATION RATE . ESTIMATED GFR I S NOT APPLICABLE FOR DIALYSIS PATIEN TS. Button Inspector ID - DARRELL MCBC (Hemogram only)2020-06-10 05:10:00 Test Item Value Reference Range Interpretation Comments WBC (test code = 6690-2) 4.9 See_Comment [A utomated message] The system [employer] generated this result transmitted ref erence range: 3.5 - 10 .5 K/L. The refe rence range was not u sed to interpret this result as normal/abnor mal. RBC (test code = 789-8) 2.55 See_Comment L [Au tomated message] The system [employer] generated this result transmitted ref erence range: 3.93 - 5 .22 M/L. The refe rence range was not u sed to interpret this result as normal/abnor mal. MCHC (test code = 786-4) 31.5 See_Comment L [A utomated message] The system whic h generated this result transmitted ref erence range: 32.2 - 3 5.5 GM/DL. The refe rence range was not u sed to interpret this result as normal/abnor mal. Hematocrit (test code = 25.1 % 34.1-44.9 L 4544-3) MCV (test code = 787-2) 98.4 fL 79.4-94.8 H MCH (test code = 785-6) 31.0 pg 25.6-32.2 RDW (test code = 788-0) 13.4 % 11.7-14.4 Platelets (test code = 193 See_Comment [Aut omated message] 777-3) The system [employer] generated this result transmitted ref erence range: 150 - 45 0 K/CU MM. The referen ce range was not u sed to interpret this result as normal/abnor mal. MPV (test code = 9.6 fL 9.4-12.3 58840-4) nRBC (test code = 413) 0 See_Comment [Aut omated message] The system [employer] generated this result transmitted ref erence range: 0 - 0 /1 00 WBC. The refere nce range was not u sed to interpret this result as normal/abnor mal. Lab Interpretation (test Abnormal code = 29332-4) [facility] (HEMOGRAM ONLY)2020-06-10 05:10:00 Test Item Value Reference Range Interpretation Comments WHITE BLOOD CELL COUNT (BEAKER) 4.9 K/ L 3.5-10.5 (test code = 775) RED BLOOD CELL COUNT (BEAKER) 2.55 M/ L 3.93-5.22 L (test code = 761) HEMOGLOBIN (BEAKER) (test code = 7.9 GM/DL 11.2-15.7 L 410) HEMATOCRIT (BEAKER) (test code = 25.1 % 34.1-44.9 L 411) MEAN CORPUSCULAR VOLUME (BEAKER) 98.4 fL 79.4-94.8 H (test code = 753) MEAN CORPUSCULAR HEMOGLOBIN 31.0 pg 25.6-32.2 (BEAKER) (test code = 751) MEAN CORPUSCULAR HEMOGLOBIN CONC 31.5 GM/DL 32.2-35.5 L (BEAKER) (test code = 752) RED CELL DISTRIBUTION WIDTH 13.4 % 11.7-14.4 (BEAKER) (test code = 412) PLATELET COUNT (BEAKER) (test 193 K/CU MM 150-450 code = 756) MEAN PLATELET VOLUME (BEAKER) 9.6 fL 9.4-12.3 (test code = 754) NUCLEATED RED BLOOD CELLS 0 /100 WBC 0-0 (BEAKER) (test code = 413) POCT-GLUCOSE [id number] 21:12:00 Test Item Value Reference Range Interpretation Comments POC-GLUCOSE METER 93 mg/dL 70-110 : [facility] (BEAKER) (test code = TREVOR Shipley [facility], 1538) [address]: Button Inspector/Techni slick ID = [id number] for Chris Marte POCT-GLUCOSE [id number] 16:44:00 Test Item Value Reference Range Interpretation Comments POC-GLUCOSE METER 77 mg/dL 70-110 : [facility] 67[facility] (BEAKER) (test code = [facility] Violetta [facility], 1538) [address]: Button Inspector/Techni slick ID = [id number] for FLASH BROCK SARS-CoV2/RT-PCR (Asymptomatic ONLY)2020-06-09 15:15:00 Test Item Value Reference Range Interpretation Comments SARS-COV2/RT-PCR Negative Not Detected, (test code = Negative, See 93685-8) external report for linked test SARS-COV-2 [facility] PERFORMING LAB (test code = 02403-8) PAOLA (test code = Negative result for this PAOLA) test determines that SARS-CoV-2 RNA was not present in the specimen above the Limit of Detection (LOD). However, Negative results do not preclude SARS-CoV-2 infection and should not be used as the sole basis for treatment or patient management decisions. Negative results must be combined with clinical observations, patient history, and epidemiological information. A false negative result may occur if a specimen is improperly collected, transported or handled. A false negative result should be considered if patient's recent exposures or clinical presentation indicate that COVID-19 (SARS-CoV-2) is likely and diagnostic tests for other causes of illness are negative. Re-testing should be considered in cases of suspected false negatives. The limit of detection for this assay is 800 copies/mL. This SARS CoV-2 test is a real-time RT-PCR test intended for the qualitative detection of nucleic acid from SARS-CoV-2 in a nasopharyngeal swab specimen collected from individuals suspected of COVID-19 by their healthcare provider. This test has not been Food and Drug Administration (FDA) cleared or approved. This is a modified version of an approved Emergency Use Authorization (EUA) and is in the process of review by the FDA. Once authorized by the FDA, the issued EUA will be effective until the declaration that circumstances exist justifying the authorization of the emergency use of in vitro diagnostic tests for detection and/or diagnosis of COVID-19 is terminated under Section 564(b)(2) of the Act or the EUA is revoked under Section 564(g) of the Act. Fact Sheet for Healthcare Providers:https://www.[employer]/sites/default/f lissa/product/documents/F act_Sheet_HC_Providers_L ybn_OMLD-CrU-9.pdf Fact Sheet for Healthcare Patients:https://www.W[employer]under/sites/default/fi les/product/documents/Fa ct_Sheet_Patients_Lyra_S ARS-CoV-2.pdf Performing Laboratory:[place] [address], [place] [address] [place], [place] [address]ARS-COV2/RT-PCR ([facility])2020-06-09 15:15:00 Test Item Value Reference Range Interpretation Comments SARS-COV2/RT-PCR (test Negative Not Detected, Negative, code = 8859050) See external report for linked test SARS-COV-2 PERFORMING LAB [facility] (test code = 7453618) Negative result for this test determines that SARS-CoV-2 RNA was not present in the specimen above the Limit of Detection (LOD). However, Negative results do not preclude SARS-CoV-2 infection and should not be used as the sole basis for treatment or patient management decisions. Negative results mustbe combined with clinical observations, patient history, and epidemiological information. A false negative result may occur if a specimen is improperly collected, transported or handled. A false negative result should be considered if patient's recent exposures or clinical presentation indicate that COVID-19 (SARS-CoV-2) is likely and diagnostic tests for other causes of illness are negative. Re-testing should be considered in cases of suspected false negatives.The limit of detection for this assay is 800 copies/mL.This SARS CoV-2 test is a real-time RT-PCR test intended for the qualitative detection of nucleic acid from SARS-CoV-2 in a nasopharyngeal swab specimen collected from individuals susp ected of COVID-19 by their healthcare provider.This test has not been Food and Drug Administration (FDA) cleared or approved. This is a modified version of an approved Emergency Use Authorization (EUA) and is in the process of review by the FDA. Once authorized by the FDA, the issued EUA will be effective until the declaration that circumstances exist justifying the authorization of the emergency use of in vitro diagnostic tests for detection and/or diagnosis of COVID-19 is terminated under Section 564(b)(2) of the Act or the EUA is revoked under Section 564(g) of the Act.Fact Sheet for Healthcare Providers:https://www.[employer]/sites/default/files/product/documents/Fact_Shee n_LQ_Bpojswnfp_Vpfq_KCAA-XiL-8.pdfFact Sheet for Healthcare Patients:https://www.[employer]/sites/default/files/product/ documents/Ehkh_Uwswm_Evlcifry_Rmws_XOXZ-CmC-3.pdfPerforming Laboratory:[facility], [place] [address]GT, [id number] 13:56:00R/o SBO, infection. Also h/o left ureteral stone s/p stent.Unlisted Reason for Exam - Click Yes and Enter Reason Below->NoWill this procedure require oral contrast?->Yes [facility] : 1950 Sex: FFINAL REPORT ABDOMINAL AND PELVIS CT DATED 06/09/2020 CLINICAL INFORMATION: Abdominal distensionAbdominal pain, acute, nonlocalized TECHNIQUE: Axial images of the abdomen and pelvis were obtained from diaphragm to the pubic symphysis with GI and intravenous contrast. This exam was performed according to our departmental dose-optimization program, which includes automated exposure control, adjustment of the mA and/or kV according to patient size and/or use of interactive reconstruction technique. COMMENT: Liver and spleen are normal in size without focal abnormality. Gallbladder is surgically absent. No biliary dilatation is noted. Pancreas and adrenals are unremarkable. Both kidneys are normal in size and functioning. Arthropathy ureter stent is seen on the left. No hydronephrosis or hydroureter is seen. A couple of small stones are seen in the left kidney measuring up to 3 mm in size. The urinary bladder is contracted. The opacified small bowel is unremarkable.The evaluation of the large bowel is limited secondary to insufficient amount of GI contrast. Appendix is not visualized. Uterus is normal in size. No mass, adenopathy or ascites is present. IMPRESSION: 1. Left renal stones and presence of a double-J left ureteral stent without hydronephrosis.2. Status post cholecystectomy without biliary dilatation.3. No focal abnormality seen in the abdomen or pelvis to account for patient's abdominal pain. Signed: Jhony Gillis MDRort Verified Date/Time: 06/09/2020 13:56:09 Reading Location: [facility] C013Y CT Body Reading Room CT abdomen/pelvis with IV [id number] 13:56:00Interface, External Ris In - 06/09/2020 1:58 PM CDTFINAL REPORT ABDOMINAL AND PELVIS CT DATED 06/09/2020 CLINICAL INFORMATION: Abdominal distensionAbdominal pain, acute, nonlocalized TECHNIQUE: Axial images of the abdomen and pelvis were obtained from diaphragm to the pubic symphysis with GI and intravenous contrast. This exam was performed according to our departmental dose-optimization program, which includes automated exposure control, adjustment of the mA and/or kV according to patient size and/or use of interactive reconstruction technique. COMMENT: Liver and spleen are normal in size without focal abnormality. Gallbladder is surgically absent. No biliary dilatation is noted. Pancreas and adrenals are unremarkable. Both kidneys are normal in size and functioning. Arthropathy ureter stent is seen on the left. No hydronephrosis or hydroureter is seen. A couple of small stones are seen in the left kidney measuring up to 3 mm in size. The urinary bladder is contracted. The opacified small bowel is unremarkable. The evaluation of the large bowel is limited secondary to insufficient amount of GI contrast. Appendix is not visualized. Uterus is normal in size. No mass, adenopathy or ascites is present. IMPRESSION: 1. Left renal stones and presence of a double-J left ureteral stent without hydronephrosis.2. Status post cholecystectomy without biliary dilatation.3. No focal abnormality seen in the abdomen or pelvis to account for patient's abdominal pain. Signed: Jhony Gillis MDReport Verified Date/Time: 06/09/2020 13:56:09 Reading Location: [address] BodyReading Room [facility]PO[facility] 2020-06-09 12:05:00 Test Item Value Reference Range Interpretation Comments POC-GLUCOSE METER 74 mg/dL 70-110 : TESTED A T [facility] 6720 ([facility]) (test code = TREVOR Shipley [facility], 1538) [address]: Button Inspector/Techni slick ID = [id number] for FLASH BROCK Hemoglobin and [id number] 10:48:00 Test Item Value Reference Range Interpretation Comments Hemoglobin (test code 8.1 See_Comment L [Auto mated = 786-4) message] The system which generated this result transmit nilesh reference range : 11.2 - 15.7 GM/ DL. The reference range was not u sed to interpret th is result as normal/abnormal . Hematocrit (test code 25.5 % 34.1-44.9 L = 4544-3) PAOLA (test code = PAOLA) Button Inspector ID - [id number] Lab Interpretation Abnormal (test code = 31675-8) [facility] CampusHEMOGLOBIN AND [id number] 10:48:00 Test Item Value Reference Range Interpretation Comments HEMOGLOBIN (BEAKER) (test code = 8.1 GM/DL 11.2-15.7 L 410) HEMATOCRIT (BEAKER) (test code = 25.5 % 34.1-44.9 L 411) Button Inspector ID - [id number] function [id number] 10:24:00 Test Item Value Reference Range Interpretation Comments Protein, Total (test 6.5 See_Comment [Autom ated code = 2885-2) message] The system which generated this result transmit nilesh reference range : 6.0 - 8.3 gm/dL . The reference range was not u sed to interpret th is result as normal/abnormal . Albumin (test code = 2.3 g/dL 3.5-5 L 16791-1) Total Bilirubin (test 0.3 mg/dL 0.2-1.2 code = 1975-2) Bilirubin, Direct 0.2 mg/dL 0.1-0.5 (test code = 1968-7) Alkaline Phosphatase 53 U/L 40-150 (test code = 6768-6) AST (test code = 13 U/L 5-34 1920-8) ALT (test code = 8 U/L 55 1742-6) PAOLA (test code = PAOLA) Button Inspector ID - MALINDA C Lab Interpretation Abnormal (test code = 51972-8) [facility] CampusHEPATIC FUNCTION [id number] 10:24:00 Test Item Value Reference Range Interpretation Comments TOTAL PROTEIN (BEAKER) (test code = 6.5 gm/dL 6.0-8.3 770) ALBUMIN (BEAKER) (test code = 1145) 2.3 g/dL 3.5-5.0 L BILIRUBIN TOTAL (BEAKER) (test code 0.3 mg/dL 0.2-1.2 = 377) BILIRUBIN DIRECT (BEAKER) (test 0.2 mg/dL 0.1-0.5 code = 706) ALKALINE PHOSPHATASE (BEAKER) (test 53 U/L 40-150 code = 346) AST (SGOT) (BEAKER) (test code = 13 U/L 5-34 353) ALT (SGPT) (BEAKER) (test code = 8 U/L 6-55 347) Button Inspector ID - MALINDA [id number] 09:15:00 Test Item Value Reference Range Interpretation Comments MAGNESIUM (BEAKER) (test code = 1.5 mg/dL 1.6-2.6 L 627) Button Inspector ID - DARRELL MBASIC METABOLIC [id number] 06:02:00 Test Item Value Reference Range Interpretation Comments SODIUM (BEAKER) 136 meq/L 136-145 (test code = 381) POTASSIUM (BEAKER) 3.0 meq/L 3.5-5.1 L (test code = 379) CHLORIDE (BEAKER) 105 meq/L 98-107 (test code = 382) CO2 (BEAKER) (test 22 meq/L 22-29 code = 355) BLOOD UREA NITROGEN 7 mg/dL 7-21 (BEAKER) (test code = 354) CREATININE (BEAKER) 0.60 mg/dL 0.57-1.25 (test code = 358) GLUCOSE RANDOM 97 mg/dL 70-105 (BEAKER) (test code = 652) CALCIUM (BEAKER) 8.0 mg/dL 8.4-10.2 L (test code = 697) EGFR (BEAKER) (test 120 mL/min/1.73 ESTIM ATED GFR IS code = 1092) sq m NOT ACCURATE CREATININE CLEARANCE IN PREDICTING GLOMERULAR FILTRATION RATE . ESTIMATED GFR I S NOT APPLICABLE FOR DIALYSIS PATIEN TS. Button Inspector ID - DARRELL MCBC (HEMOGRAM ONLY)2020-06-09 05:15:00 Test Item Value Reference Range Interpretation Comments WHITE BLOOD CELL COUNT (BEAKER) 4.7 K/ L 3.5-10.5 (test code = 775) RED BLOOD CELL COUNT (BEAKER) 2.40 M/ L 3.93-5.22 L (test code = 761) HEMOGLOBIN (BEAKER) (test code = 7.4 GM/DL 11.2-15.7 L 410) HEMATOCRIT (BEAKER) (test code = 23.7 % 34.1-44.9 L 411) MEAN CORPUSCULAR VOLUME (BEAKER) 98.8 fL 79.4-94.8 H (test code = 753) MEAN CORPUSCULAR HEMOGLOBIN 30.8 pg 25.6-32.2 (BEAKER) (test code = 751) MEAN CORPUSCULAR HEMOGLOBIN CONC 31.2 GM/DL 32.2-35.5 L (BEAKER) (test code = 752) RED CELL DISTRIBUTION WIDTH 13.3 % 11.7-14.4 (BEAKER) (test code = 412) PLATELET COUNT (BEAKER) (test 172 K/CU MM 150-450 code = 756) MEAN PLATELET VOLUME (BEAKER) 9.7 fL 9.4-12.3 (test code = 754) NUCLEATED RED BLOOD CELLS 0 /100 WBC 0-0 (BEAKER) (test code = 413) POCT-GLUCOSE [id number] 03:36:00 Test Item Value Reference Range Interpretation Comments POC-GLUCOSE METER 94 mg/dL 70-110 : TESTED A T [facility] 6720 (BEAKER) (test code = [facility], 153) [address]: Button Inspector/Techni slick ID = [id number] for Chris Marte Prepare Leuko-Red [id number] 23:54:00 Test Item Value Reference Range Interpretation Comments CROSSMATCH (test code = 2264) COMPATIBLE Unit ABO (test code = O Pos 3575690) UNIT NUMBER (test code = [id number] 934-0) Status (test code = 6727468) [place]_TIMEINCFLORENCE COMM[facility]ALTHCAR[facility] Blood Bank Product (test code RED BLOOD CELLS = 2263) PRODUCT CODE (test code = Z7234K42 933-2) [facility] CampusPOCT-GLUCOSE [id number] 20:29:00 Test Item Value Reference Range Interpretation Comments POC-GLUCOSE METER 103 mg/dL 70-110 : TESTED A T [facility] 6720 (BEAKER) (test code = [facility], 153) 85[address]: Button Inspector/Techni slick ID = [id number] for Chris Acevedo POCT-GLUCOSE [id number] 17:20:00 Test Item Value Reference Range Interpretation Comments POC-GLUCOSE METER 86 mg/dL 70-110 : TESTED A T [facility] 6720 (BEAKER) (test code = [facility], 153) 24426: Button Inspector/Techni slick ID = [id number] for Perc y-Solas, Ruel POCT-GLUCOSE [id number] 16:35:00 Test Item Value Reference Range Interpretation Comments POC-GLUCOSE METER 77 mg/dL 70-110 : TESTED A T [facility] 6720 (TAY) (test code = TREVOR [place], 1538) [address]: Button Inspector/Techni slick ID = [id number] for REE BERNARD, ABDOMEN/KUB, 1 VIEW [id number] 14:06:00Reason for exam:->abdominal pain, distensionCHI COMMUNITY [facility] : 1950 Sex: FFINAL REPORT Abdomen x-ray Clinical Diagnosis: Abdominal pain, distentionComparison: None.Views: Two supine views of abdomen obtained. FINDINGS/IMPRESSION: Bowel gas pattern is nonspecific. Gaseous distention noted of loops of small and large bowel can be seen in setting of ileus. Evaluation for intraperitoneal free air is limited on this supine view examination. Left double-J ureteral stent noted in place. No acute osseous abnormalities identified. Signed: Demetris Eaton MDReport Verified Date/Time: 06/08/2020 14:06:37 Reading Location: [facility] C0X Ortho Consult ReadingRoom XR abdomen / KUB 1 [id number] 14:06:00Interface, External Ris In - 06/08/2020 2:08 PM CSTFINAL REPORT Abdomen x-ray Clinical Diagnosis: Abdominal pain, distentionComparison: None.Views: Two supine views of abdomen ob tained. FINDINGS/IMPRESSION: Bowel gas pattern is nonspecific. Gaseous distention noted of loops ofsmall and large bowel can be seen in setting of ileus. Evaluation for intraperitoneal free air is limited on this supine view examination. Left double-J ureteral stent noted in place. No acute osseous a bnormalities identified. Signed: Demetris Eaton Verified Date/Time: 06/08/2020 14:06:37 Reading Location: [facility] B1 C013X Ortho Consult Reading Room [facility] CenterPOCT-GLUCOSE [id number] 12:07:00 Test Item Value Reference Range Interpretation Comments POC-GLUCOSE METER 92 mg/dL 70-110 : TESTED A T [facility] 6720 (BEAKER) (test code = [facility] Inbenta [facility], 1538) [address]: Button Inspector/Techni slick ID = [id number] for REE BERNARD HEPATIC FUNCTION [id number] 11:28:00 Test Item Value Reference Range Interpretation Comments TOTAL PROTEIN (BEAKER) 6.8 gm/dL 6.0-8.3 Speci men slightly (test code = 770) hemolyzed ALBUMIN (BEAKER) (test 2.4 g/dL 3.5-5.0 L Speci men slightly code = 1145) hemolyzed BILIRUBIN TOTAL 0.3 mg/dL 0.2-1.2 Specimen sli ghtly (BEAKER) (test code = hemoly zed 377) BILIRUBIN DIRECT 0.2 mg/dL 0.1-0.5 Specimen sl ightly (BEAKER) (test code = hemoly zed 706) ALKALINE PHOSPHATASE 51 U/L 40-150 (BEAKER) (test code = 346) AST (SGOT) (BEAKER) 18 U/L 5-34 Specimen slightly (test code = 353) hemolyzed ALT (SGPT) (BEAKER) 10 U/L 6-55 Specimen slightly (test code = 347) hemolyzed Button Inspector ID - MALINDA CPOCT-GLUCOSE [id number] 11:25:00 Test Item Value Reference Range Interpretation Comments POC-GLUCOSE METER 84 mg/dL 70-110 : TESTED A T [facility] 6720 (BEAKER) (test code = TREVOR In[employer]enta [facility], 1538) 824[address]: Button Inspector/Techni slick ID = [id number] for Mi Romo Ruel POCT-GLUCOSE [id number] 11:05:00 Test Item Value Reference Range Interpretation Comments POC-GLUCOSE METER 56 mg/dL 70-110 L : TESTED A T [facility] 6720 (BEAKER) (test code = [facility], [facility]8) 124[address]: Button Inspector/Techni slick ID = [id number] for FLASH BROCK POCT-GLUCOSE [id number] 10:50:00 Test Item Value Reference Range Interpretation Comments POC-GLUCOSE METER 63 mg/dL 70-110 L : TESTED A T [facility] 6720 (BEAKER) (test code = [facility], [facility]8) 20[address]: Button Inspector/Techni slick ID = [id number] for Mi blackmon-Michael Bailonessa POCT-GLUCOSE [id number] 09:08:00 Test Item Value Reference Range Interpretation Comments POC-GLUCOSE METER 51 mg/dL 70-110 L : TESTED A T [facility] 6720 (BEAKER) (test code = [facility], [facility]8) 82260: Button Inspector/Techni slick ID = [id number] for Mi blackmon-Michael Bailonessa POCT-GLUCOSE [id number] 08:44:00 Test Item Value Reference Range Interpretation Comments POC-GLUCOSE METER 39 mg/dL 70-110 LL : TESTED A T [facility] 6720 (BEAKER) (test code = [facility], [facility]) [address]: Button Inspector/Techni slick ID = [id number] for BRIANNA ASENCIO REE BASIC METABOLIC [id number] 08:29:00 Test Item Value Reference Range Interpretation Comments SODIUM (BEAKER) 137 meq/L 136-145 (test code = 381) POTASSIUM (BEAKER) 4.0 meq/L 3.5-5.1 Specimen slightly (test code = 379) hemolyzed CHLORIDE (BEAKER) 107 meq/L 98-107 (test code = 382) CO2 (BEAKER) (test 21 meq/L 22-29 L code = 355) BLOOD UREA NITROGEN 7 mg/dL 7-21 (BEAKER) (test code = 354) CREATININE (BEAKER) 0.63 mg/dL 0.57-1.25 Specimen slightly (test code = 358) hemolyzed GLUCOSE RANDOM 62 mg/dL 70-105 L (BEAKER) (test code = 652) CALCIUM (BEAKER) 8.1 mg/dL 8.4-10.2 L (test code = 697) EGFR (BEAKER) (test 113 mL/min/1.73 ESTIM ATED GFR IS code = 1092) sq m NOT ACCURATE CREATININE CLEARANCE IN PREDICTING GLOMERULAR FILTRATION RATE . ESTIMATED GFR I S NOT APPLICABLE FOR DIALYSIS PATIEN TS. Button Inspector ID - MALINDA CPOCT-GLUCOSE [id number] 08:16:00 Test Item Value Reference Range Interpretation Comments POC-GLUCOSE METER 48 mg/dL 70-110 L : TESTED A T [facility] 6720 (BEAKER) (test code = [place], 1538) 98270: Button Inspector/Techni slick ID = [id number] for REE BERNARD CBC (HEMOGRAM ONLY)2020-06-08 08:13:00 Test Item Value Reference Range Interpretation Comments WHITE BLOOD CELL COUNT (BEAKER) 4.2 K/ L 3.5-10.5 (test code = 775) RED BLOOD CELL COUNT (BEAKER) 2.46 M/ L 3.93-5.22 L (test code = 761) HEMOGLOBIN (BEAKER) (test code = 7.8 GM/DL 11.2-15.7 L 410) HEMATOCRIT (BEAKER) (test code = 24.0 % 34.1-44.9 L 411) MEAN CORPUSCULAR VOLUME (BEAKER) 97.6 fL 79.4-94.8 H (test code = 753) MEAN CORPUSCULAR HEMOGLOBIN 31.7 pg 25.6-32.2 (BEAKER) (test code = 751) MEAN CORPUSCULAR HEMOGLOBIN CONC 32.5 GM/DL 32.2-35.5 (BEAKER) (test code = 752) RED CELL DISTRIBUTION WIDTH 13.6 % 11.7-14.4 (BEAKER) (test code = 412) PLATELET COUNT (BEAKER) (test 161 K/CU MM 150-450 code = 756) MEAN PLATELET VOLUME (BEAKER) 10.8 fL 9.4-12.3 (test code = 754) NUCLEATED RED BLOOD CELLS 0 /100 WBC 0-0 (BEAKER) (test code = 413) POCT-GLUCOSE [id number] 20:46:00 Test Item Value Reference Range Interpretation Comments POC-GLUCOSE METER 80 mg/dL 70-110 : TESTED A T [facility] 6720 (BEAKER) (test code = [facility], [facility]) 66990: Button Inspector/Techni slick ID = [id number] for Chris Marte POCT-GLUCOSE [id number] 16:46:00 Test Item Value Reference Range Interpretation Comments POC-GLUCOSE METER 92 mg/dL 70-110 : TESTED A T [facility] 6720 (BEAKER) (test code = [facility], [facility]) 74784: Button Inspector/Techni slick ID = [id number] for DES JEWELL POCT-GLUCOSE [id number] 12:54:00 Test Item Value Reference Range Interpretation Comments POC-GLUCOSE METER 106 mg/dL 70-110 : TESTED A T [facility] 6720 (BEAKER) (test code = [facility], [facility]) 66486: Button Inspector/Techni slick ID = [id number] for Loida mendes (contract), Bet ty POCT-GLUCOSE [id number] 12:54:00 Test Item Value Reference Range Interpretation Comments POC-GLUCOSE METER 97 mg/dL 70-110 : TESTED A T [facility] 6720 (BEAKER) (test code = [facility], [facility]) 69009: Button Inspector/Techni slick ID = [id number] for KINGA Mota, TIEARA POCT-GLUCOSE [id number] 12:53:00 Test Item Value Reference Range Interpretation Comments POC-GLUCOSE METER 112 mg/dL 70-110 H : TESTED A T [facility] 6720 (BEAKER) (test code = [facility], [facility]) 68046: Button Inspector/Techni slick ID = [id number] for RACHELLE BARRY, MISA POCT-GLUCOSE [id number] 12:53:00 Test Item Value Reference Range Interpretation Comments POC-GLUCOSE METER 107 mg/dL 70-110 : TESTED A T [facility] 6720 (BEAKER) (test code = [facility], [facility]) 10052: Button Inspector/Techni slick ID = [id number] for Le cinthya (contract), Bet ty POCT-GLUCOSE [id number] 12:53:00 Test Item Value Reference Range Interpretation Comments POC-GLUCOSE METER 91 mg/dL 70-110 : TESTED A T [facility] 6720 (BEAKER) (test code = [facility], 153) 84302: Button Inspector/Techni slick ID = [id number] for BRENDA CERRATO POCT-GLUCOSE [id number] 12:53:00 Test Item Value Reference Range Interpretation Comments POC-GLUCOSE METER 113 mg/dL 70-110 H : TESTED A T [facility] 6720 (BEAKER) (test code = [facility], 1538) 38196: Button Inspector/Techni slick ID = [id number] for Neil Fierro POCT-GLUCOSE [id number] 12:52:00 Test Item Value Reference Range Interpretation Comments POC-GLUCOSE METER 96 mg/dL 70-110 : TESTED A T [facility] 6720 (BEAKER) (test code = [facility], 153) 64528: Button Inspector/Techni slick ID = [id number] for SALD ENRIQUE, RUEL POCT-GLUCOSE [id number] 12:52:00 Test Item Value Reference Range Interpretation Comments POC-GLUCOSE METER 73 mg/dL 70-110 : TESTED A T [facility] 6720 (BEAKER) (test code = [facility], 153) 22364: Button Inspector/Techni slick ID = [id number] for SALD ENRIQUE, RUEL POCT-GLUCOSE [id number] 12:52:00 Test Item Value Reference Range Interpretation Comments POC-GLUCOSE METER 76 mg/dL 70-110 : TESTED A T [facility] 6720 (BEAKER) (test code = [facility], [facility]) 04631: Button Inspector/Techni slick ID = [id number] for BRIS RAJAT, MARIO ALBERTO POCT-GLUCOSE [id number] 12:52:00 Test Item Value Reference Range Interpretation Comments POC-GLUCOSE METER 80 mg/dL 70-110 : TESTED A T [facility] 6720 (BEAKER) (test code = [facility], 153) 92040: Button Inspector/Techni slick ID = [id number] for BRIS RAJAT, MARIO ALBERTO POCT-GLUCOSE [id number] 12:52:00 Test Item Value Reference Range Interpretation Comments POC-GLUCOSE METER 89 mg/dL 70-110 : TESTED A T [facility] 6720 (BEAKER) (test code = [facility], [facility]) 09006: Button Inspector/Techni slick ID = [id number] for MATH AI, VALSA POCT-GLUCOSE [id number] 12:52:00 Test Item Value Reference Range Interpretation Comments POC-GLUCOSE METER 82 mg/dL 70-110 : TESTED A T [facility] 6720 (BEAKER) (test code = [facility], [facility]) 38141: Button Inspector/Techni slick ID = [id number] for RUEL HERNÁNDEZ POCT-GLUCOSE [id number] 12:52:00 Test Item Value Reference Range Interpretation Comments POC-GLUCOSE METER 60 mg/dL 70-110 L : TESTED A T [facility] 6720 (BEAKER) (test code = [facility], [facility]) 31949: Button Inspector/Techni slick ID = [id number] for MATH AI, VALSA POCT-GLUCOSE [id number] 12:52:00 Test Item Value Reference Range Interpretation Comments POC-GLUCOSE METER 244 mg/dL 70-110 H : TESTED A T [facility] 6720 (BEAKER) (test code = [facility], [facility]) 98994: Button Inspector/Techni slick ID = [id number] for Radha cataNeil ma POCT-GLUCOSE [id number] 12:52:00 Test Item Value Reference Range Interpretation Comments POC-GLUCOSE METER 69 mg/dL 70-110 L : TESTED A T [facility] 6720 (BEAKER) (test code = [facility], [facility]) 08124: Button Inspector/Techni slick ID = [id number] for MATH AI, VALSA HEMOGLOBIN AND [id number] 11:40:00 Test Item Value Reference Range Interpretation Comments HEMOGLOBIN (BEAKER) (test code = 7.7 GM/DL 11.2-15.7 L 410) HEMATOCRIT (BEAKER) (test code = 23.7 % 34.1-44.9 L 411) Button Inspector ID - [id number]-GLUCOSE [id number] 11:06:00 Test Item Value Reference Range Interpretation Comments POC-GLUCOSE METER 119 mg/dL 70-110 H : TESTED A T [facility] 6720 (BEAKER) (test code = [facility], 1538) 61681: Button Inspector/Techni slick ID = [id number] for DES ROSALES POCT-GLUCOSE [id number] 07:18:00 Test Item Value Reference Range Interpretation Comments POC-GLUCOSE METER 79 mg/dL 70-110 : TESTED A T [facility] (BEAKER) (test code = [facility]RE[facility] Ship[facility], 1538) 82438: Button Inspector/Techni slick ID = [id number] for DES JEWELL Type and screen, [id number] 05:47:00 Test Item Value Reference Range Interpretation Comments ABO/RH AUTOMATED (BEAKER) O POSITIVE Do ne on Echo1 (test code = 2260) Ab Scrn (test code = 890-4) NEGATIVE [facility] CampusABOR[facility], [id number] 04:40:00 Test Item Value Reference Range Interpretation Comments ABO Grouping (test code = 2588) O Rh Factor (test code = 2589) POS [facility]U/S, EXTREMITY (NON-VASCULAR), RIGHT, LIMITED 2020-06-07 04:21:00Reason for exam:->PIV site, for fluid collection [facility] : 1950 Sex: FFINAL REPORT CLINICAL HISTORY: Swelling of the right upper arm near peripheral IV site COMPARISON: None. FINDINGS: Real-time grayscale evaluation of the right upper arm in the region of interest was performed. There is subcutaneous edema in the visualized right upper arm without focal fluid collection to suggest abscess or hematoma. Signed: Jeaneth Duarteort Verified Date/Time: 06/07/2020 04:21:28 US extremity non-vascular limited right 2020-06-07 04:21:00Interface, External Ris In - 06/07/2020 4:23 AM CSTFINAL REPORT CLINICAL HISTORY: Swelling of the right upper arm near peripheral IV site COMPARISON: None. FINDINGS: Real-time grayscale evaluation of the right upper arm in the region of interest was performed. There is subcutaneous edema in the visualized right upper arm without focal fluid collection to suggest abscess or hematoma. Signed: Jeaneth Duarte MDReport Verified Date/Time: 06/07/2020 04:21:28 [facility] 2020-[facility] 01:55:00 Test Item Value Reference Range Interpretation Comments Phosphorus (test code = 2.9 mg/dL 2.3-4.7 2777-1) PAOLA (test code = PAOLA) Button Inspector ID - DB Lab Interpretation (test Normal code = 97222-9) [facility] CampusBASIC METABOLIC [id number] 01:55:00 Test Item Value Reference Range Interpretation Comments SODIUM (BEAKER) 137 meq/L 136-145 (test code = 381) POTASSIUM (BEAKER) 3.6 meq/L 3.5-5.1 (test code = 379) CHLORIDE (BEAKER) 105 meq/L 98-107 (test code = 382) CO2 (BEAKER) (test 23 meq/L 22-29 code = 355) BLOOD UREA NITROGEN 8 mg/dL 7-21 (BEAKER) (test code = 354) CREATININE (BEAKER) 0.69 mg/dL 0.57-1.25 (test code = 358) GLUCOSE RANDOM 81 mg/dL 70-105 (BEAKER) (test code = 652) CALCIUM (BEAKER) 8.2 mg/dL 8.4-10.2 L (test code = 697) EGFR (BEAKER) (test 102 mL/min/1.73 ESTIM ATED GFR IS code = 1092) sq m NOT ACCURATE CREATININE CLEARANCE IN PREDICTING GLOMERULAR FILTRATION RATE . ESTIMATED GFR I S NOT APPLICABLE FOR DIALYSIS PATIEN TS. Button Inspector ID - [id number] 01:55:00 Test Item Value Reference Range Interpretation Comments MAGNESIUM (BEAKER) (test code = 1.7 mg/dL 1.6-2.6 627) Button Inspector ID - [id number] 01:55:00 Test Item Value Reference Range Interpretation Comments PHOSPHORUS (BEAKER) (test code = 2.9 mg/dL 2.3-4.7 604) Button Inspector ID - DBCBC (HEMOGRAM ONLY)2020-06-07 01:50:00 Test Item Value Reference Range Interpretation Comments WHITE BLOOD CELL COUNT (BEAKER) 4.3 K/ L 3.5-10.5 (test code = 775) RED BLOOD CELL COUNT (BEAKER) 2.02 M/ L 3.93-5.22 L (test code = 761) HEMOGLOBIN (BEAKER) (test code = 6.2 GM/DL 11.2-15.7 L 410) HEMATOCRIT (BEAKER) (test code = 19.8 % 34.1-44.9 L 411) MEAN CORPUSCULAR VOLUME (BEAKER) 98.0 fL 79.4-94.8 H (test code = 753) MEAN CORPUSCULAR HEMOGLOBIN 30.7 pg 25.6-32.2 (BEAKER) (test code = 751) MEAN CORPUSCULAR HEMOGLOBIN CONC 31.3 GM/DL 32.2-35.5 L (BEAKER) (test code = 752) RED CELL DISTRIBUTION WIDTH 13.0 % 11.7-14.4 (BEAKER) (test code = 412) PLATELET COUNT (BEAKER) (test 144 K/CU MM 150-450 L code = 756) MEAN PLATELET VOLUME (BEAKER) 9.9 fL 9.4-12.3 (test code = 754) NUCLEATED RED BLOOD CELLS 0 /100 WBC 0-0 (BEAKER) (test code = 413) POCT-GLUCOSE [id number] 21:32:00 Test Item Value Reference Range Interpretation Comments POC-GLUCOSE METER 96 mg/dL 70-110 : [facility] ([facility] (test code = [place] PAN[place], 1538) 34655: Button Inspector/Techni slick ID = [id number] for KAMALA WELL, TIA Insulin, [id number] 18:00:00 Test Item Value Reference Range Interpretation Comments Insulin, 2.8 See_Comment Risk: Optimal Fasting (test <=19.6, Modera te NA, code = 1871267) High >19.6 T his insulin shows s tim cross-reactivit y for some insulin an alogs (lispro,aspart, and glargine) and m uch lower cross-reactivit y with others (detemir,glulis ine). Adult cardiovas cular event risk jose ramon landa cut points (optimal,modera te, high) are based on [employer] population data from 02/2011. [Autom ated message] The sy stem which generated this result transmit nilesh reference range : <=19.6 uIU/mL. The reference range was not used to int erpret this result as normal/abnormal . PAOLA (test code Performing Lab = PAOLA) [facility] [employer] [facility] [address] [place] [address] Bhupinder Zhu MD, PhD, SERGIO [facility] CampusPOCT-GLUCOSE [id number] 17:14:00 Test Item Value Reference Range Interpretation Comments POC-GLUCOSE METER 89 mg/dL 70-110 : TESTED A T [facility] 6720 (BEAKER) (test code = [place], 1538) 50475: Button Inspector/Techni slick ID = [id number] for PAIGE CAVAZOS BASIC METABOLIC [id number] 14:21:00 Test Item Value Reference Range Interpretation Comments SODIUM (BEAKER) 138 meq/L 136-145 (test code = 381) POTASSIUM (BEAKER) 3.6 meq/L 3.5-5.1 (test code = 379) CHLORIDE (BEAKER) 105 meq/L 98-107 (test code = 382) CO2 (BEAKER) (test 24 meq/L 22-29 code = 355) BLOOD UREA NITROGEN 6 mg/dL 7-21 L (BEAKER) (test code = 354) CREATININE (BEAKER) 0.69 mg/dL 0.57-1.25 (test code = 358) GLUCOSE RANDOM 104 mg/dL 70-105 (BEAKER) (test code = 652) CALCIUM (BEAKER) 8.4 mg/dL 8.4-10.2 (test code = 697) EGFR (BEAKER) (test 102 mL/min/1.73 ESTIM ATED GFR IS code = 1092) sq m NOT ACCURATE CREATININE CLEARANCE IN PREDICTING GLOMERULAR FILTRATION RATE . ESTIMATED GFR I S NOT APPLICABLE FOR DIALYSIS PATIEN TS. Button Inspector ID - [id number] 14:21:00 Test Item Value Reference Range Interpretation Comments MAGNESIUM (BEAKER) (test code = 1.4 mg/dL 1.6-2.6 L 627) Button Inspector ID - [id number] 14:21:00 Test Item Value Reference Range Interpretation Comments PHOSPHORUS (BEAKER) (test code = 2.9 mg/dL 2.3-4.7 604) Button Inspector ID - BSCBC (HEMOGRAM ONLY)2020-06-06 14:09:00 Test Item Value Reference Range Interpretation Comments WHITE BLOOD CELL COUNT (BEAKER) 4.5 K/ L 3.5-10.5 (test code = 775) RED BLOOD CELL COUNT (BEAKER) 2.26 M/ L 3.93-5.22 L (test code = 761) HEMOGLOBIN (BEAKER) (test code = 7.0 GM/DL 11.2-15.7 L 410) HEMATOCRIT (BEAKER) (test code = 22.0 % 34.1-44.9 L 411) MEAN CORPUSCULAR VOLUME (BEAKER) 97.3 fL 79.4-94.8 H (test code = 753) MEAN CORPUSCULAR HEMOGLOBIN 31.0 pg 25.6-32.2 (BEAKER) (test code = 751) MEAN CORPUSCULAR HEMOGLOBIN CONC 31.8 GM/DL 32.2-35.5 L (BEAKER) (test code = 752) RED CELL DISTRIBUTION WIDTH 12.9 % 11.7-14.4 (BEAKER) (test code = 412) PLATELET COUNT (BEAKER) (test 150 K/CU MM 150-450 code = 756) MEAN PLATELET VOLUME (BEAKER) 9.9 fL 9.4-12.3 (test code = 754) NUCLEATED RED BLOOD CELLS 0 /100 WBC 0-0 (BEAKER) (test code = 413) POCT-GLUCOSE [id number] 12:27:00 Test Item Value Reference Range Interpretation Comments POC-GLUCOSE METER 92 mg/dL 70-110 : TESTED A T [facility] 6720 (BEAKER) (test code = TREV[facility] Shipley [facility], 1538) 90902: Button Inspector/Techni slick ID = [id number] for PAIGE CAVAZOS POCT-GLUCOSE [id number] 08:11:00 Test Item Value Reference Range Interpretation Comments POC-GLUCOSE METER 73 mg/dL 70-110 : TESTED A T [facility] 6720 (BEAKER) (test code = TREV[facility] Shipley [facility], 1538) 03015: Button Inspector/Techni slick ID = [id number] for PAIGE CAVAZOS Prothrombin time/[id number] 06:06:00 Test Item Value Reference Interpretation Comments Range Protime (test code = 14.3 See_Comment H [Autom ated 5902-2) message] The system which generated this result transmitted reference range : 11.9 - 14.2 seconds. The reference range was not used to interpret this result as normal/abnormal . INR (test code = 1.15 See_Comment [Automated 6301-6) message] The system which generated this result transmitted reference range : <=5.90. The reference range was not used to interpret this result as normal/abnormal . PAOLA (test code = Effective 08/24/2018: PAOLA) PT Reference Range ChangeNew: 11.9-14.2 Previous: 11.7-14.7 RECOMMENDED COUMADIN/WARFARIN INR THERAPY RANGESSTANDARD DOSE: 2.0-3.0 Includes: PROPHYLAXIS for venous thrombosis, systemic embolization; TREATMENT for venous thrombosis and/or pulmonary embolus.HIGH RISK: Target INR is 2.5-3.5 for patients wiht mechanical heart valves. Lab Interpretation Abnormal (test code = 95427-7) [facility] CampusPROTHROMBIN TIME/[id number] 06:06:00 Test Item Value Reference Range Interpretation Comments PROTIME (BEAKER) 14.3 seconds 11.9-14.2 H (test code = 759) INR (BEAKER) (test 1.15 See_Comment [Automat ed message] code = 370) The system [employer] h generated this result transmitted ref erence range: <=5.90. The reference range was not used to int erpret this result as normal/abnormal . Effective 08/24/2018: PT Reference Range ChangeNew: 11.9-14.2 Previous: 11.7- 14.7RECOMMENDED COUMADIN/WARFARIN INR THERAPY RANGESSTANDARD DOSE: 2.0-3.0 Includes: PROPHYLAXIS for venous thrombosis, systemic embolization; TREATMENT for venous thrombosis and/or pulmonary embolus.HIGH RISK: Target INR is2.5-3.5 for patients wiht mechanical heart valves.BLOOD [id number] 05:01:00 Test Item Value Reference Range Interpretation Comments CULTURE (BEAKER) (test No growth in 5 days code = 1095) BLOOD [id number] 05:01:00 Test Item Value Reference Range Interpretation Comments CULTURE (BEAKER) (test No growth in 5 days code = 1095) POCT-GLUCOSE [id number] 21:05:00 Test Item Value Reference Range Interpretation Comments POC-GLUCOSE METER 91 mg/dL 70-110 : TESTED A T [facility] 6720 (BEAKER) (test code = [facility], 1538) 31225: Button Inspector/Techni slick ID = [id number] for ADRIEL BEVERLY POCT-GLUCOSE [id number] 17:19:00 Test Item Value Reference Range Interpretation Comments POC-GLUCOSE METER 100 mg/dL 70-110 : TESTED A T [facility] 6720 (BEAKER) (test code = [employer] [facility], 1538) 97957: Button Inspector/Techni slick ID = [id number] for PAIGE HOLLOWAY [id number] 14:19:00 Test Item Value Reference Range Interpretation Comments C-Peptide (test 2.05 ng/mL 0.8-3.85 code = 2743111) PAOLA (test code = Performing Lab EZ PAOLA) [facility] [address] [place] [address] Bhupinder Zhu MD, PhD, SERGIO [facility] CampusHEMOGLOBIN AND [id number] 12:17:00 Test Item Value Reference Range Interpretation Comments HEMOGLOBIN (BEAKER) (test code = 7.3 GM/DL 11.2-15.7 L 410) HEMATOCRIT (BEAKER) (test code = 23.2 % 34.1-44.9 L 411) Button Inspector ID - [id number]-GLUCOSE [id number] 12:15:00 Test Item Value Reference Range Interpretation Comments POC-GLUCOSE METER 103 mg/dL 70-110 : TESTED A T [facility] 6720 (BEAKER) (test code = [facility]RE[facility] Shipley [facility], 1538) 37033: Button Inspector/Techni slick ID = [id number] for PAIGE HOLLOWAY POCT-GLUCOSE [id number] 09:38:00 Test Item Value Reference Range Interpretation Comments POC-GLUCOSE METER 85 mg/dL 70-110 : TESTED A T [facility] 6720 (BEAKER) (test code = [facility]RE[facility] Shipley [facility], 1538) 42670: Button Inspector/Techni slick ID = [id number] for PAIGE CAVAZOS PROTHROMBIN TIME/[id number] 04:58:00 Test Item Value Reference Range Interpretation Comments PROTIME (BEAKER) 15.1 seconds 11.9-14.2 H (test code = 759) INR (BEAKER) (test 1.23 See_Comment [Automat ed message] code = 370) The system [employer] generated this result transmitted ref erence range: <=5.90. The reference range was not used to int erpret this result as normal/abnormal . Effective 08/24/2018: PT Reference Range ChangeNew: 11.9-14.2 Previous: 11.7- 14.7RECOMMENDED COUMADIN/WARFARIN INR THERAPY RANGESSTANDARD DOSE: 2.0-3.0 Includes: PROPHYLAXIS for venous thrombosis, systemic embolization; TREATMENT for venous thrombosis and/or pulmonary embolus.HIGH RISK: Target INR is2.5-3.5 for patients wiht mechanical heart valves.Calcium, [id number] 04:32:00 Test Item Value Reference Range Interpretation Comments Calcium, Ion (test code = 1994-3) 1.05 mmol/L 1.12-1.27 L pH, Blood (test code = 06971-4) 7.38 Lab Interpretation (test code = Abnormal 54201-9) [facility] CampusCALCIUM, [id number] 04:32:00 Test Item Value Reference Range Interpretation Comments CALCIUM IONIZED (BEAKER) (test 1.05 mmol/L 1.12-1.27 L code = 698) PH, BLOOD (BEAKER) (test code = 7.38 1810) Comprehensive metabolic [id number] 04:18:00 Test Item Value Reference Range Interpretation Comments Protein, Total (test 6.2 See_Comment [Autom ated code = 2885-2) message] The system which generated this result transmit nilesh reference range : 6.0 - 8.3 gm/dL . The reference range was not u sed to interpret th is result as normal/abnormal . Albumin (test code = 2.4 g/dL 3.5-5 L 12267-2) Alkaline Phosphatase 55 U/L 40-150 (test code = 6768-6) Total Bilirubin (test 0.3 mg/dL 0.2-1.2 code = 1975-2) Sodium (test code = 140 meq/L 475-154 0679-2) Potassium (test code 4.2 meq/L 3.5-5.1 = 2823-3) Chloride (test code = 109 meq/L 98-107 H 2075-0) CO2 (test code = 26 meq/L 22-29 2028-9) BUN (test code = 7 mg/dL 7-21 3094-0) Creatinine (test code 0.70 mg/dL 0.57-1.25 = 2160-0) Glucose (test code = 99 mg/dL 70-105 2345-7) Calcium (test code = 8.2 mg/dL 8.4-10.2 L 07031-0) AST (test code = 15 U/L 5-34 1920-8) ALT (test code = 8 U/L 6-55 1742-6) EGFR (test code = 100 mL/min/1.73 [place] [address]-7) NOT ACCURATE CREATININE CLEARANCE IN PREDICTING GLOMERULAR FILTRATION RATE . ESTIMATED GFR I S NOT APPLICABLE FOR DIALYSIS PATIEN TSGisell PAOLA (test code = PAOLA) Button Inspector ID - Lab Interpretation Abnormal (test code = 44931-0) [facility] CampusCOMPREHENSIVE METABOLIC [id number] 04:18:00 Test Item Value Reference Range Interpretation Comments TOTAL PROTEIN 6.2 gm/dL 6.0-8.3 (BEAKER) (test code = 770) ALBUMIN (BEAKER) 2.4 g/dL 3.5-5.0 L (test code = 1145) ALKALINE PHOSPHATASE 55 U/L 40-150 (BEAKER) (test code = 346) BILIRUBIN TOTAL 0.3 mg/dL 0.2-1.2 (BEAKER) (test code = 377) SODIUM (BEAKER) (test 140 meq/L 136-145 code = 381) POTASSIUM (BEAKER) 4.2 meq/L 3.5-5.1 (test code = 379) CHLORIDE (BEAKER) 109 meq/L 98-107 H (test code = 382) CO2 (BEAKER) (test 26 meq/L 22-29 code = 355) BLOOD UREA NITROGEN 7 mg/dL 7-21 (BEAKER) (test code = 354) CREATININE (BEAKER) 0.70 mg/dL 0.57-1.25 (test code = 358) GLUCOSE RANDOM 99 mg/dL 70-105 (BEAKER) (test code = 652) CALCIUM (BEAKER) 8.2 mg/dL 8.4-10.2 L (test code = 697) AST (SGOT) (BEAKER) 15 U/L 5-34 (test code = 353) ALT (SGPT) (BEAKER) 8 U/L 6-55 (test code = 347) EGFR (BEAKER) (test 100 ESTIMATE D GFR IS code = 1092) mL/min/1.73 sq NOT ACCURA TE m CREATININE CLEARANCE IN PREDICTING GLOMERULAR FILTRATION RATE . ESTIMATED GFR I S NOT APPLICABLE FOR DIALYSIS PATIEN TS. Button Inspector ID - [id number] 04:18:00 Test Item Value Reference Range Interpretation Comments MAGNESIUM (BEAKER) (test code = 2.0 mg/dL 1.6-2.6 627) Button Inspector ID - [id number] 04:18:00 Test Item Value Reference Range Interpretation Comments PHOSPHORUS (BEAKER) (test code = 2.0 mg/dL 2.3-4.7 L 604) Button Inspector ID - ASCBC with platelet count + automated [id number] 04:09:00 Test Item Value Reference Range Interpretation Comments WBC (test code = 6690-2) 4.4 See_Comment [A utomated message] The system [employer] generated this result transmitted ref erence range: 3.5 - 10 .5 K/L. The refe rence range was not u sed to interpret this result as normal/abnor mal. RBC (test code = 789-8) 2.32 See_Comment L [Au tomated message] The system [employer] generated this result transmitted ref erence range: 3.93 - 5 .22 M/L. The refe rence range was not u sed to interpret this result as normal/abnor mal. MCHC (test code = 786-4) 31.0 See_Comment L [A utomated message] The system [employer] generated this result transmitted ref erence range: 32.2 - 3 5.5 GM/DL. The refe rence range was not u sed to interpret this result as normal/abnor mal. Hematocrit (test code = 22.9 % 34.1-44.9 L 4544-3) MCV (test code = 787-2) 98.7 fL 79.4-94.8 H MCH (test code = 785-6) 30.6 pg 25.6-32.2 RDW (test code = 788-0) 12.9 % 11.7-14.4 Platelets (test code = 146 See_Comment L [Aut omated message] 777-3) The system [employer] generated this result transmitted ref erence range: 150 - 45 0 K/CU MM. The referen ce range was not u sed to interpret this result as normal/abnor mal. MPV (test code = 10.7 fL 9.4-12.3 85230-2) nRBC (test code = 413) 0 See_Comment [Aut omated message] The system [employer] generated this result transmitted ref erence range: 0 - 0 /1 00 WBC. The refere nce range was not u sed to interpret this result as normal/abnor mal. % Neutros (test code = 56 % 429) % Lymphs (test code = 32 % 430) % Monos (test code = 10 % 431) % Eos (test code = 432) 1 % % Baso (test code = 437) 0 % # Neutros (test code = 2.48 See_Comment [Aut omated message] 670) The system [employer] generated this result transmitted ref erence range: 1.56 - 6 .13 K/L. The refe rence range was not u sed to interpret this result as normal/abnor mal. # Lymphs (test code = 1.41 See_Comment [Auto mated message] 414) The system [employer] generated this result transmitted ref erence range: 1.18 - 3 .74 K/L. The refe rence range was not u sed to interpret this result as normal/abnor mal. # Monos (test code = 0.44 See_Comment H [Autom ated message] 415) The system [employer] generated this result transmitted ref erence range: 0.24 - 0 .36 K/L. The refe rence range was not u sed to interpret this result as normal/abnor mal. # Eos (test code = 416) 0.06 See_Comment [Au tomated message] The system [employer] generated this result transmitted ref erence range: 0.04 - 0 .36 K/L. The refe rence range was not u sed to interpret this result as normal/abnor mal. # Baso (test code = 417) 0.01 See_Comment [A utomated message] The system [employer] generated this result transmitted ref erence range: 0.01 - 0 .08 K/L. The refe rence range was not u sed to interpret this result as normal/abnor mal. Immature 1 % 0-1 Granulocytes-Relative (test code = 2801) Lab Interpretation (test Abnormal code = 33447-8) [facility] W/PLT COUNT & AUTO [id number] 04:09:00 Test Item Value Reference Range Interpretation Comments WHITE BLOOD CELL COUNT (BEAKER) 4.4 K/ L 3.5-10.5 (test code = 775) RED BLOOD CELL COUNT (BEAKER) 2.32 M/ L 3.93-5.22 L (test code = 761) HEMOGLOBIN (BEAKER) (test code = 7.1 GM/DL 11.2-15.7 L 410) HEMATOCRIT (BEAKER) (test code = 22.9 % 34.1-44.9 L 411) MEAN CORPUSCULAR VOLUME (BEAKER) 98.7 fL 79.4-94.8 H (test code = 753) MEAN CORPUSCULAR HEMOGLOBIN 30.6 pg 25.6-32.2 (BEAKER) (test code = 751) MEAN CORPUSCULAR HEMOGLOBIN CONC 31.0 GM/DL 32.2-35.5 L (BEAKER) (test code = 752) RED CELL DISTRIBUTION WIDTH 12.9 % 11.7-14.4 (BEAKER) (test code = 412) PLATELET COUNT (BEAKER) (test 146 K/CU MM 150-450 L code = 756) MEAN PLATELET VOLUME (BEAKER) 10.7 fL 9.4-12.3 (test code = 754) NUCLEATED RED BLOOD CELLS 0 /100 WBC 0-0 (BEAKER) (test code = 413) NEUTROPHILS RELATIVE PERCENT 56 % (BEAKER) (test code = 429) LYMPHOCYTES RELATIVE PERCENT 32 % (BEAKER) (test code = 430) MONOCYTES RELATIVE PERCENT 10 % (BEAKER) (test code = 431) EOSINOPHILS RELATIVE PERCENT 1 % (BEAKER) (test code = 432) BASOPHILS RELATIVE PERCENT 0 % (BEAKER) (test code = 437) NEUTROPHILS ABSOLUTE COUNT 2.48 K/ L 1.56-6.13 (BEAKER) (test code = 670) LYMPHOCYTES ABSOLUTE COUNT 1.41 K/ L 1.18-3.74 (BEAKER) (test code = 414) MONOCYTES ABSOLUTE COUNT (BEAKER) 0.44 K/ L 0.24-0.36 H (test code = 415) EOSINOPHILS ABSOLUTE COUNT 0.06 K/ L 0.04-0.36 (BEAKER) (test code = 416) BASOPHILS ABSOLUTE COUNT (BEAKER) 0.01 K/ L 0.01-0.08 (test code = 417) IMMATURE GRANULOCYTES-RELATIVE 1 % 0-1 PERCENT (BEAKER) (test code = 2801) BASIC METABOLIC [id number] 22:44:00 Test Item Value Reference Range Interpretation Comments SODIUM (BEAKER) 139 meq/L 136-145 (test code = 381) POTASSIUM (BEAKER) 3.4 meq/L 3.5-5.1 L (test code = 379) CHLORIDE (BEAKER) 106 meq/L 98-107 (test code = 382) CO2 (BEAKER) (test 26 meq/L 22-29 code = 355) BLOOD UREA NITROGEN 6 mg/dL 7-21 L (BEAKER) (test code = 354) CREATININE (BEAKER) 0.74 mg/dL 0.57-1.25 (test code = 358) GLUCOSE RANDOM 110 mg/dL 70-105 H (BEAKER) (test code = 652) CALCIUM (BEAKER) 8.2 mg/dL 8.4-10.2 L (test code = 697) EGFR (BEAKER) (test 94 mL/min/1.73 ESTIMA NILESH GFR IS code = 1092) sq m NOT ACCURATE CREATININE CLEARANCE IN PREDICTING GLOMERULAR FILTRATION RATE . ESTIMATED GFR I S NOT APPLICABLE FOR DIALYSIS PATIEN TS. Button Inspector ID - [id number] 22:44:00 Test Item Value Reference Range Interpretation Comments MAGNESIUM (BEAKER) (test code = 3.0 mg/dL 1.6-2.6 H 627) Button Inspector ID - [id number] 22:44:00 Test Item Value Reference Range Interpretation Comments PHOSPHORUS (BEAKER) (test code = 2.4 mg/dL 2.3-4.7 604) Button Inspector ID - BSBASIC METABOLIC [id number] 15:25:00 Test Item Value Reference Range Interpretation Comments SODIUM (BEAKER) 141 meq/L 136-145 (test code = 381) POTASSIUM (BEAKER) 3.4 meq/L 3.5-5.1 L (test code = 379) CHLORIDE (BEAKER) 108 meq/L 98-107 H (test code = 382) CO2 (BEAKER) (test 28 meq/L 22-29 code = 355) BLOOD UREA NITROGEN 6 mg/dL 7-21 L (BEAKER) (test code = 354) CREATININE (BEAKER) 0.73 mg/dL 0.57-1.25 (test code = 358) GLUCOSE RANDOM 136 mg/dL 70-105 H (BEAKER) (test code = 652) CALCIUM (BEAKER) 8.0 mg/dL 8.4-10.2 L (test code = 697) EGFR (BEAKER) (test 96 mL/min/1.73 ESTIMA NILESH GFR IS code = 1092) sq m NOT ACCURATE CREATININE CLEARANCE IN PREDICTING GLOMERULAR FILTRATION RATE . ESTIMATED GFR I S NOT APPLICABLE FOR DIALYSIS PATIEN TS. Button Inspector ID - [id number] 15:25:00 Test Item Value Reference Range Interpretation Comments MAGNESIUM (BEAKER) (test code = 1.3 mg/dL 1.6-2.6 L 627) Button Inspector ID - [id number] 15:25:00 Test Item Value Reference Range Interpretation Comments PHOSPHORUS (BEAKER) (test code = 2.3 mg/dL 2.3-4.7 604) Button Inspector ID - BSPOCT-GLUCOSE [id number] 11:44:00 Test Item Value Reference Range Interpretation Comments POC-GLUCOSE METER 140 mg/dL 70-110 H : TESTED A T [facility] 6720 (BEAKER) (test code = [place], 1538) [address]: Button Inspector/Techni slick ID = [id number] for BRENDA LOPEZ Urine [id number] 11:41:00 Test Item Value Reference Range Interpretation Comments Result (test code = <10,000 col/mL Same A R efer to 6463-4) organism has been previous isolated from culture cultures(s) of the ofProteus same body site mirabilis within 3 days. Repeat identification and susceptibility testing performed only after consultation with the clinical microbiology laboratory. Lab Interpretation Abnormal (test code = 66181-6) [facility]PRE[facility] [id number] 05:53:00 Test Item Value Reference Range Interpretation Comments TOTAL PROTEIN 6.3 gm/dL 6.0-8.3 (BEAKER) (test code = 770) ALBUMIN (BEAKER) 2.5 g/dL 3.5-5.0 L (test code = 1145) ALKALINE PHOSPHATASE 65 U/L 40-150 (BEAKER) (test code = 346) BILIRUBIN TOTAL 0.3 mg/dL 0.2-1.2 (BEAKER) (test code = 377) SODIUM (BEAKER) (test 139 meq/L 136-145 code = 381) POTASSIUM (BEAKER) 3.4 meq/L 3.5-5.1 L (test code = 379) CHLORIDE (BEAKER) 108 meq/L 98-107 H (test code = 382) CO2 (BEAKER) (test 24 meq/L 22-29 code = 355) BLOOD UREA NITROGEN 6 mg/dL 7-21 L (BEAKER) (test code = 354) CREATININE (BEAKER) 0.72 mg/dL 0.57-1.25 (test code = 358) GLUCOSE RANDOM 126 mg/dL 70-105 H (BEAKER) (test code = 652) CALCIUM (BEAKER) 8.0 mg/dL 8.4-10.2 L (test code = 697) AST (SGOT) (BEAKER) 13 U/L 5-34 (test code = 353) ALT (SGPT) (BEAKER) 6 U/L 6-55 (test code = 347) EGFR (BEAKER) (test 97 mL/min/1.73 ESTIMA NILESH GFR IS code = 1092) sq m NOT ACCURATE CREATININE CLEARANCE IN PREDICTING GLOMERULAR FILTRATION RATE . ESTIMATED GFR I S NOT APPLICABLE FOR DIALYSIS PATIEN TS. Button Inspector ID - MARCI [id number] 05:53:00 Test Item Value Reference Range Interpretation Comments MAGNESIUM (BEAKER) (test code = 1.4 mg/dL 1.6-2.6 L 627) Button Inspector ID - MARCI [id number] 05:53:00 Test Item Value Reference Range Interpretation Comments PHOSPHORUS (BEAKER) (test code = 1.7 mg/dL 2.3-4.7 L 604) Button Inspector ID - MARCI LPROTHROMBIN TIME/[id number] 05:48:00 Test Item Value Reference Range Interpretation Comments PROTIME (BEAKER) 16.6 seconds 11.9-14.2 H (test code = 759) INR (BEAKER) (test 1.39 See_Comment [Automat ed message] code = 370) The system [employer] generated this result transmitted ref erence range: <=5.90. The reference range was not used to int erpret this result as normal/abnormal . Effective 08/24/2018: PT Reference Range ChangeNew: 11.9-14.2 Previous: 11.7- 14.7RECOMMENDED COUMADIN/WARFARIN INR THERAPY RANGESSTANDARD DOSE: 2.0-3.0 Includes: PROPHYLAXIS for venous thrombosis, systemic embolization; TREATMENT for venous thrombosis and/or pulmonary embolus.HIGH RISK: Target INR is2.5-3.5 for patients wiht mechanical heart valves.CALCIUM, [id number] 05:41:00 Test Item Value Reference Range Interpretation Comments CALCIUM IONIZED (BEAKER) (test 1.10 mmol/L 1.12-1.27 L code = 698) PH, BLOOD (BEAKER) (test code = 7.46 1810) CBC W/PLT COUNT & AUTO [id number] 05:30:00 Test Item Value Reference Range Interpretation Comments WHITE BLOOD CELL COUNT (BEAKER) 4.2 K/ L 3.5-10.5 (test code = 775) RED BLOOD CELL COUNT (BEAKER) 2.53 M/ L 3.93-5.22 L (test code = 761) HEMOGLOBIN (BEAKER) (test code = 7.8 GM/DL 11.2-15.7 L 410) HEMATOCRIT (BEAKER) (test code = 24.3 % 34.1-44.9 L 411) MEAN CORPUSCULAR VOLUME (BEAKER) 96.0 fL 79.4-94.8 H (test code = 753) MEAN CORPUSCULAR HEMOGLOBIN 30.8 pg 25.6-32.2 (BEAKER) (test code = 751) MEAN CORPUSCULAR HEMOGLOBIN CONC 32.1 GM/DL 32.2-35.5 L (BEAKER) (test code = 752) RED CELL DISTRIBUTION WIDTH 12.8 % 11.7-14.4 (BEAKER) (test code = 412) PLATELET COUNT (BEAKER) (test 145 K/CU MM 150-450 L code = 756) MEAN PLATELET VOLUME (BEAKER) 10.5 fL 9.4-12.3 (test code = 754) NUCLEATED RED BLOOD CELLS 0 /100 WBC 0-0 (BEAKER) (test code = 413) NEUTROPHILS RELATIVE PERCENT 52 % (BEAKER) (test code = 429) LYMPHOCYTES RELATIVE PERCENT 36 % (BEAKER) (test code = 430) MONOCYTES RELATIVE PERCENT 10 % (BEAKER) (test code = 431) EOSINOPHILS RELATIVE PERCENT 1 % (BEAKER) (test code = 432) BASOPHILS RELATIVE PERCENT 0 % (BEAKER) (test code = 437) NEUTROPHILS ABSOLUTE COUNT 2.19 K/ L 1.56-6.13 (BEAKER) (test code = 670) LYMPHOCYTES ABSOLUTE COUNT 1.50 K/ L 1.18-3.74 (BEAKER) (test code = 414) MONOCYTES ABSOLUTE COUNT (BEAKER) 0.40 K/ L 0.24-0.36 H (test code = 415) EOSINOPHILS ABSOLUTE COUNT 0.06 K/ L 0.04-0.36 (BEAKER) (test code = 416) BASOPHILS ABSOLUTE COUNT (BEAKER) 0.01 K/ L 0.01-0.08 (test code = 417) IMMATURE GRANULOCYTES-RELATIVE 1 % 0-1 PERCENT (BEAKER) (test code = 2801) [id number] 15:50:00 Test Item Value Reference Range Interpretation Comments PHOSPHORUS (BEAKER) (test code = 2.5 mg/dL 2.3-4.7 604) Button Inspector ID - ABAD FPOCT-GLUCOSE [id number] 12:22:00 Test Item Value Reference Range Interpretation Comments POC-GLUCOSE METER 110 mg/dL 70-110 : TESTED A T [facility] 6720 (BEAKER) (test code = [place], 1538) [address]: Button Inspector/Techni slick ID = [id number] for MARIO ALBERTO RAJAN 1:1 MIXING STUDY, [id number] 10:27:00 Test Item Value Reference Range Interpretation Comments Protime (test code = 18.7 See_Comment H [Autom ated message] 5902-2) The system [employer] generated this result transmitted ref erence range: 11.9 - 1 4.2 seconds. The reference range was not used to int erpret this result as normal/abnormal . PTT (test code = 43.0 See_Comment H [Automated message] 29488-0) The system [employer] generated this result transmitted ref erence range: 22.5 - 3 6.0 seconds. The reference range was not used to int erpret this result as normal/abnormal . PT 03/29 Mix (test code = 14.7 See_Comment [Au tomated message] 3675) The system [employer] generated this result transmitted ref erence range: 11.7 - 1 4.7 SECS. The refer ence range was not u sed to interpret this result as normal/abnor mal. PTT 03/29 Mix (test code = 32.9 See_Comment [A utomated message] 4266) The system [employer] generated this result transmitted ref erence range: 22.5 - 3 6.0 SECS. The refer ence range was not u sed to interpret this result as normal/abnor mal. Lab Interpretation (test Abnormal code = 30435-8) [facility]1:1 MIXING STUDY, [id number] 10:27:00 Test Item Value Reference Range Interpretation Comments PROTIME (BEAKER) (test code = 18.7 seconds 11.9-14.2 H 759) PARTIAL THROMBOPLASTIN TIME 43.0 seconds 22.5-36.0 H (BEAKER) (test code = 760) PT 1/1 MIX (BEAKER) (test code = 14.7 SECS 11.7-14.7 1595) PTT 1/1 MIX (BEAKER) (test code 32.9 SECS 22.5-36.0 = 1596) BASIC METABOLIC [id number] 09:49:00 Test Item Value Reference Range Interpretation Comments SODIUM (BEAKER) 143 meq/L 136-145 (test code = 381) POTASSIUM (BEAKER) 3.3 meq/L 3.5-5.1 L (test code = 379) CHLORIDE (BEAKER) 111 meq/L 98-107 H (test code = 382) CO2 (BEAKER) (test 26 meq/L 22-29 code = 355) BLOOD UREA NITROGEN 9 mg/dL 7-21 (BEAKER) (test code = 354) CREATININE (BEAKER) 0.82 mg/dL 0.57-1.25 (test code = 358) GLUCOSE RANDOM 136 mg/dL 70-105 H (BEAKER) (test code = 652) CALCIUM (BEAKER) 8.4 mg/dL 8.4-10.2 (test code = 697) EGFR (BEAKER) (test 84 mL/min/1.73 ESTIMA NILESH GFR IS code = 1092) sq m NOT ACCURATE CREATININE CLEARANCE IN PREDICTING GLOMERULAR FILTRATION RATE . ESTIMATED GFR I S NOT APPLICABLE FOR DIALYSIS PATIEN TS. Button Inspector ID - ABAD FOperator ID - ABAD FECG 12 [id number] 09:26:40 Interface, External Ris In - 06/03/2020 9:26 AM CSTVentricular Rate 91 BPMAtrial Rate 91 BPMP-R Interval 196 msQRS Duration 86 msQ-T Interval 372 msQTC Calculation(Bazerenée) 457 msP [place] 45 degreesR [place] -29 degreesT [place] 121 degreesNormal sinus rhythmST depression in I, aVL, V2 consider ischemiaAbnormal ECGWhen compared with ECG of 01-JUN-2020 21:34,QRS axis Shifted leftMild ST depression now seen inI, aVL, [id number] by MD MICAH, [facility] ([id number]) on 06/03/2020 9:26:38 [facility] [id number] 09:08:00 Test Item Value Reference Range Interpretation Comments POC-GLUCOSE METER 123 mg/dL 70-110 H : TESTED A T [facility] 6720 (BEAKER) (test code = [place], 1538) [address]: Button Inspector/Techni slick ID = [id number] for MARIO ALBERTO RAJAN CALCIUM, [id number] 04:51:00 Test Item Value Reference Range Interpretation Comments CALCIUM IONIZED (BEAKER) (test 1.11 mmol/L 1.12-1.27 L code = 698) PH, BLOOD (BEAKER) (test code = 7.40 1810) COMPREHENSIVE METABOLIC [id number] 04:45:00 Test Item Value Reference Range Interpretation Comments TOTAL PROTEIN 6.1 gm/dL 6.0-8.3 (BEAKER) (test code = 770) ALBUMIN (BEAKER) 2.7 g/dL 3.5-5.0 L (test code = 1145) ALKALINE PHOSPHATASE 47 U/L 40-150 (BEAKER) (test code = 346) BILIRUBIN TOTAL 0.4 mg/dL 0.2-1.2 (BEAKER) (test code = 377) SODIUM (BEAKER) (test 142 meq/L 136-145 code = 381) POTASSIUM (BEAKER) 3.5 meq/L 3.5-5.1 (test code = 379) CHLORIDE (BEAKER) 111 meq/L 98-107 H (test code = 382) CO2 (BEAKER) (test 24 meq/L 22-29 code = 355) BLOOD UREA NITROGEN 10 mg/dL 7-21 (BEAKER) (test code = 354) CREATININE (BEAKER) 0.97 mg/dL 0.57-1.25 (test code = 358) GLUCOSE RANDOM 374 mg/dL 70-105 H (BEAKER) (test code = 652) CALCIUM (BEAKER) 8.3 mg/dL 8.4-10.2 L (test code = 697) AST (SGOT) (BEAKER) 11 U/L 5-34 (test code = 353) ALT (SGPT) (BEAKER) 6 U/L 6-55 (test code = 347) EGFR (BEAKER) (test 69 mL/min/1.73 ESTIMA NILESH GFR IS code = 1092) sq m NOT ACCURATE CREATININE CLEARANCE IN PREDICTING GLOMERULAR FILTRATION RATE . ESTIMATED GFR I S NOT APPLICABLE FOR DIALYSIS PATIEN TS. Button Inspector ID - [id number] 04:45:00 Test Item Value Reference Range Interpretation Comments MAGNESIUM (BEAKER) (test code = 1.8 mg/dL 1.6-2.6 627) Button Inspector ID - [id number] 04:45:00 Test Item Value Reference Range Interpretation Comments PHOSPHORUS (BEAKER) (test code = 1.7 mg/dL 2.3-4.7 L 604) Button Inspector ID - EDASICBC W/PLT COUNT & AUTO [id number] 04:31:00 Test Item Value Reference Range Interpretation Comments WHITE BLOOD CELL COUNT (BEAKER) 3.4 K/ L 3.5-10.5 L (test code = 775) RED BLOOD CELL COUNT (BEAKER) 2.55 M/ L 3.93-5.22 L (test code = 761) HEMOGLOBIN (BEAKER) (test code = 7.9 GM/DL 11.2-15.7 L 410) HEMATOCRIT (BEAKER) (test code = 24.9 % 34.1-44.9 L 411) MEAN CORPUSCULAR VOLUME (BEAKER) 97.6 fL 79.4-94.8 H (test code = 753) MEAN CORPUSCULAR HEMOGLOBIN 31.0 pg 25.6-32.2 (BEAKER) (test code = 751) MEAN CORPUSCULAR HEMOGLOBIN CONC 31.7 GM/DL 32.2-35.5 L (BEAKER) (test code = 752) RED CELL DISTRIBUTION WIDTH 12.9 % 11.7-14.4 (BEAKER) (test code = 412) PLATELET COUNT (BEAKER) (test 164 K/CU MM 150-450 code = 756) MEAN PLATELET VOLUME (BEAKER) 10.5 fL 9.4-12.3 (test code = 754) NUCLEATED RED BLOOD CELLS 0 /100 WBC 0-0 (BEAKER) (test code = 413) NEUTROPHILS RELATIVE PERCENT 56 % (BEAKER) (test code = 429) LYMPHOCYTES RELATIVE PERCENT 32 % (BEAKER) (test code = 430) MONOCYTES RELATIVE PERCENT 10 % (BEAKER) (test code = 431) EOSINOPHILS RELATIVE PERCENT 2 % (BEAKER) (test code = 432) BASOPHILS RELATIVE PERCENT 1 % (BEAKER) (test code = 437) NEUTROPHILS ABSOLUTE COUNT 1.91 K/ L 1.56-6.13 (BEAKER) (test code = 670) LYMPHOCYTES ABSOLUTE COUNT 1.09 K/ L 1.18-3.74 L (BEAKER) (test code = 414) MONOCYTES ABSOLUTE COUNT (BEAKER) 0.34 K/ L 0.24-0.36 (test code = 415) EOSINOPHILS ABSOLUTE COUNT 0.07 K/ L 0.04-0.36 (BEAKER) (test code = 416) BASOPHILS ABSOLUTE COUNT (BEAKER) 0.02 K/ L 0.01-0.08 (test code = 417) IMMATURE GRANULOCYTES-RELATIVE 0 % 0-1 PERCENT (BEAKER) (test code = 2801) POCT-GLUCOSE [id number] 04:14:00 Test Item Value Reference Range Interpretation Comments POC-GLUCOSE METER 304 mg/dL 70-110 H : TESTED A T [facility] [address] (BEAKER) (test code = [place], 1538) [address]: Button Inspector/Techni slick ID = [id number] for Neil Fierro U/S, ABDOMINAL, [id number] 00:31:00Reason for exam:->elevated INRShould this be performed at the bedside?->Yes [facility] 1950 Sex: FFINAL REPORT History: Elevated INR Abdominal ultrasound dated 06/02/2020 Comparison: None Comment: Real-time transabdominal ultrasound of the abdomen was performed. The examination is limited by suboptimal acoustic windowing secondary to rib artifact and bowel gas. Liver: 16.9 cm , normal. Grossly normal echogenicity. No visualized focal lesions. Gallbladder: Nonvisualized, absent versus contracted. Biliary tree: No intrahepatic ductal dilatation. CBD: 9 mm. MPV: 10 mm Spleen: Normal in size and echogenicity. Pancreas: Obscured by bowel gas. Right kidney: 10.2 x 4.5 x 5.1cm. Normal echogenicity.Left kidney: 11.1 x 5.4 x 5.0 cm. Normal echogenicity. No ascites is presentin the abdomen. The visualized abdominal aorta is normal in caliber. The IVC and Hepatic veins are patent. Impression: Limited examination, as described. No ultrasound abnormality to explain the patient's elevated INR. Nonvisualization of the gallbladder, which may be absent or contracted. Please correlate with surgical history. The pancreas is obscured by bowel gas. Signed: Jeaneth Duarte MDReport Verified Date/Time: 06/03/2020 00:31:42 US abdomen [id number] 00:31:00Interface, External Ris In - 06/03/2020 12:33 AM CSTFINAL REPORT History: Elevated INR Abdominal ultrasound dated 06/02/2020 Comparison: None Comment: Real-time transabdominal ultrasound of the abdomen was performed. The examination is limited by suboptimal acoustic windowing secondary to rib artifact and bowel gas. Liver: 16.9 cm , normal. Grossly normal echogenicity. No visualized focal lesions. Gallbladder: Nonvisualized, absent versus contracted. Biliary tree: No intrahepatic ductal dilatation. CBD: 9 mm. MPV: 10 mm Spleen: Normal in size and echogenicity. Pancreas: Obscured by bowel gas. Right kidney: 10.2 x 4.5 x 5.1 cm. Normal echogenicity.Left kidney: 11.1 x 5.4 x 5.0 cm. Normal echogenicity. No ascites is present in the abdomen. The visualized abdominal aorta is normal in caliber. The IVC and Hepatic veins are patent. Impression: Limited examination, as described. No ultrasound abnormality to explain the patient's elevated INR. Nonvisualization of the gallbladder, which may be absent or contracted. Please correlate with surgical history. The pancreas is obscured by bowel gas. Signed: Jeaneth Duarte MDReport Verified Date/Time: 06/03/2020 00:31:42 [facility] [id number] 23:38:00 Test Item Value Reference Range Interpretation Comments POC-GLUCOSE METER 101 mg/dL 70-110 : TESTED A T [facility] 6720 (BEAKER) (test code = [facility], 1538) [id number]: Button Inspector/Techni slick ID = [id number] for RACHELLE BARRY NATHAN POCT-GLUCOSE [id number] 22:34:00 Test Item Value Reference Range Interpretation Comments POC-GLUCOSE METER 118 mg/dL 70-110 H : TESTED A T [facility] 6720 (BEAKER) (test code = [facility], 1538) [address]: Button Inspector/Techni slick ID = [id number] for Radha cataanilColNeli POCT-GLUCOSE [id number] 21:58:00 Test Item Value Reference Range Interpretation Comments POC-GLUCOSE METER 79 mg/dL 70-110 : TESTED A T [facility] 6720 (BEAKER) (test code = [facility], 1538) [address]: Button Inspector/Techni slick ID = [id number] for NATHAN LLOYD BASIC METABOLIC [id number] 18:05:00 Test Item Value Reference Range Interpretation Comments SODIUM (BEAKER) 146 meq/L 136-145 H (test code = 381) POTASSIUM (BEAKER) 3.8 meq/L 3.5-5.1 (test code = 379) CHLORIDE (BEAKER) 113 meq/L 98-107 H (test code = 382) CO2 (BEAKER) (test 24 meq/L 22-29 code = 355) BLOOD UREA NITROGEN 12 mg/dL 7-21 (BEAKER) (test code = 354) CREATININE (BEAKER) 0.83 mg/dL 0.57-1.25 (test code = 358) GLUCOSE RANDOM 90 mg/dL 70-105 (BEAKER) (test code = 652) CALCIUM (BEAKER) 8.4 mg/dL 8.4-10.2 (test code = 697) EGFR (BEAKER) (test 82 mL/min/1.73 ESTIMA NILESH GFR IS code = 1092) sq m NOT ACCURATE CREATININE CLEARANCE IN PREDICTING GLOMERULAR FILTRATION RATE . ESTIMATED GFR I S NOT APPLICABLE FOR DIALYSIS PATIEN TS. Button Inspector ID - DBPOCT-GLUCOSE [id number] 17:45:00 Test Item Value Reference Range Interpretation Comments POC-GLUCOSE METER 81 mg/dL 70-110 : TESTED Daniel T [facility] 6720 (TAY) (test code = EMETERIOJOHNNY Shipley [facility], 1538) [id number]: Button Inspector/Techni slick ID = [id number] for BRIS RAJAT, MARIO ALBERTO FL, FLUORO, NON-SPECIFIC, UP TO 1 [id number] 16:31:00Reason for exam:->[facility] : 1950 Sex: FFINAL REPORT Retrograde Pyelography Clinical History: cystoscopy Impression: Intraoperative images are obtained. The radiologist is not present during the procedure. Images are presented for interpretation at the completion of the procedure. Please refer to the procedure report for more details. Number of images obtained: 31 Fluoroscopy time: Not provided. Signed: Randolph Leger Verified Date/Time: 06/02/2020 16:31:11 Reading Location: [address] Consult Reading Room [place] fluoro non-specific up to 1 [id number] 16:31:00 Interface, External Ris In - 06/02/2020 4:33 PM CSTFINAL REPORT Retrograde Pyelography Clinical History: cystoscopy Impression: Intraoperative images are obtained. The radiologist is not present during the procedure. Images are presented for interpretation at the completion of the procedure. Please refer to the procedure report for more details. Number of images obtained: 31Fluoroscopy time: Not provided. Signed: Víctor Legerepvito Verified Date/Time: 06/02/2020 16:31:11 Reading Location: [address] Ortho Consult Reading [facility] + Reflex to [id number] 16:08:00 Test Item Value Reference Range Interpretation Comments Color, UA (test code Light Yellow = 5778-6) Clarity, UA (test Hazy code = 5767-9) Specific [employer] [place] [employer] [place], UA 1.008 1.001-1.035 (test code = 5811-5) pH, UA (test code = 5.5 5.0-8.0 5803-2) Protein, UA (test 10 mg/dL Negative A code = 50926-8) Glucose, UA (test Negative Negative code = 365) Ketones, UA (test Negative Negative code = 2514-8) Bilirubin, UA (test Negative Negative code = 64603-9) Blood, UA (test code Large Negative A = 88477-7) Nitrite, UA (test Negative Negative code = 5802-4) Leukocytes, UA (test Large Negative A code = 5799-2) Urobilinogen, UA 0.2 mg/dL 0.2-1 (test code = 88133-3) RBC, UA (test code = 0 See_Comment [Autom ated 33658-0) message] The system which generated this result transmit nilesh reference range : /HPF. The reference range was not used to interpret this result as normal/abnormal . WBC, UA (test code = 248 See_Comment [Autom ated 5821-4) message] The system which generated this result transmit nilesh reference range : /HPF. The reference range was not used to interpret this result as normal/abnormal . Bacteria, UA (test Many code = 85132-4) Mucus (test code = Rare 8247-9) Squam Epithel, UA <1 See_Comment [Automate d (test code = 47468-9) messag e] The system which generated this result transmit nilesh reference range : /HPF. The reference range was not used to interpret this result as normal/abnormal . Hyaline Casts, UA 8 See_Comment [Automate d (test code = 11047-2) messag e] The system which generated this result transmit nilesh reference range : /LPF. The reference range was not used to interpret this result as normal/abnormal . Crystals, Urine (test Few code = 03543-2) Specimen Source (test code = 2795) PAOLA (test code = PAOLA) Button Inspector ID - [auto]Button Inspector ID - tech Lab Interpretation Abnormal (test code = 19578-6) [facility]LEX URINE [id number] 16:08:00 Test Item Value Reference Range Interpretation Comments COLOR (BEAKER) (test code = 470) Light Yellow CLARITY (BEAKER) (test code = Hazy 469) SPECIFIC GRAVITY UA (BEAKER) 1.008 1.001-1.035 (test code = 468) PH UA (BEAKER) (test code = 467) 5.5 5.0-8.0 PROTEIN UA (BEAKER) (test code = 10 mg/dL Negative A 464) GLUCOSE UA (BEAKER) (test code = Negative Negative 365) KETONES UA (BEAKER) (test code = Negative Negative 371) BILIRUBIN UA (BEAKER) (test code Negative Negative = 462) BLOOD UA (BEAKER) (test code = Large Negative A 461) NITRITE UA (BEAKER) (test code = Negative Negative 465) LEUKOCYTE ESTERASE UA (BEAKER) Large Negative A (test code = 466) UROBILINOGEN UA (BEAKER) (test 0.2 mg/dL 0.2-1.0 code = 463) RBC UA (BEAKER) (test code = 0 /HPF 519) WBC UA (BEAKER) (test code = 248 /HPF 520) BACTERIA (BEAKER) (test code = Many 517) MUCUS (BEAKER) (test code = Rare 1574) SQUAMOUS EPITHELIAL (BEAKER) < /HPF (test code = 516) HYALINE CASTS (BEAKER) (test 8 /LPF code = 514) CRYSTALS, URINE (BEAKER) (test Few code = 1521) SOURCE(BEAKER) (test code = 2795) Button Inspector ID - [auto]Button Inspector ID - tech2D Echo W/Doppler(CW/PW/Color)2020-06-02 16:00:00Ejection FractionSLEH ECHO HEARTLAB MKCKESSON CPACSInterface, External Ris In - 06/02/2020 4:00 PM CSTTransthoracic Echocardiography Report (TTE) Demographics Patient Name EMIL COVARRUBIAS Date of Study 06/02/2020 Gender Female Visit Number 2 [id number] Race Black Accession Number [id number] Room Number 7216 Date of 1950 Referring Physician Age 70 year(s) SonographerAjulianne Brooks RDCS Cartridge Feeder Kieran Vargas Interpreting Tom Walsh MD Physician Procedure Type of Study TTE procedure:2DECHO W DOPPLER(CW/PW/COLOR) (STAT) Indications:Hypotension or hemodynamic instability.Clinical HistoryHGB 8.0HCT 24.6 %Height:64 inches Weight: 100.7 kg (222 lbs) BSA: 2.04 m^2 BMI: 38.11 kg/m^2HR: 88 bpm BP: 125/113 mmHg Summary 1. Normal LV size and function. LVEF is > 60% 2. Diastology: Grade 1 diastolic dysfunction 3. Normal RV size and function 4. No significant valvular heart disease 5. Mild TR. Estimated PASP is 45-49 mm Hg 6. No pericardial effusion Previous Study No prior studies available for comparison. Signature Findings Left Ventricle Normal left ventricular chamber size. Normal wall thickness. Normal overall left ventricular systolic function. No apparent segmental wall motion abnormalities. Estimated LVEF by qualitative assessment is normal (>60%) . Grade 1 diastolic dysfunction (impaired relaxation and low-normal LA pressure). Left Atrium LA size is normal . Right Ventricle Normal right ventricle structure and function. RV pacing wire is visualized . Right Atrium Normal right atrium. RA pacing wire is visualized . Aortic Valve Mild AoV cusp thickening. Mitral Valve Mild MV leaflet thickening. Trace mitralregurgitation. Tricuspid Valve Mild tricuspid regurgitation. Estimated peak systolic PA pressure is 45-49 mm Hg Pulmonic Valve Normal PV structure and function by limited views and Doppler. Aorta Aortic root size (SInus of Valsalva diameter) is normal . Pericardium No evidence of pericardial effusion. IVC/SVC/PA/PV/Pleural The estimated RA pressure by IVC dynamics is 10mmHg . Chambers/Structures Left Atrium LA Dimension: 3.56 cm LA Area: 21.04 cm^2 LA Volume: 60.61 ml LA Vol. Index: 30 ml/m^2 Left Ventricle LVIDd: 4.11 cm LVEDV:74.72 ml LV Septum Diastolic: 0.91 cm LV PW Diastolic: 0.86 cm LVEDV Ellis's:92.71 ml LV Length: 7.98 cm LVESV Ellis's:30.02 ml LVEF Ellis's: 67.6 % LVEDVI: 45 ml/m^2 LVESVI: 15 ml/m^2 LVOT Diameter: 2.02 cm Right Ventricle RVOT VTI: 15.11 cm Aorta Ao Root S of Mi.: 3.08 cm Doppler/Quantitative Measurements Mitral Valve MV Peak E-Wave: 0.73 m/s MV Peak A-Wave: 0.85 m/sP1/2t: 22.6 msec E/A Ratio: 0.86 Peak Gradient: 2.13 mmHg Deceleration Time: 77.9 msec MV Area (PHT): 9.74 cm^2 MV Dedrick. Peak: Tissue Doppler E' Septal Velocity: 0.08 m/s E' Lateral Velocity: 0.08 m/s Aortic Valve Peak Velocity: 1.01 m/s Mean Velocity: 0.68 m/s Peak Gradient: 4.12 mmHg Mean Gradient: 2.09 mmHg AV Area (continuity): 2.47 cm^2 AV VTI: 22.52 cm AV DVI: 0.77 LVOT Peak Velocity: 0.73 m/s Peak Gradient: 2.13 mmHg Mean Velocity: 0.48 m/s Mean Gradient: 1.04 mmHg LVOT Diameter: 2.02 cm LVOT VTI: 17.37 cm LVOT Area: 3.2 cm^2 LVOT SV:55.64 ml LVOT CO: 4.9 l/min LVOT CI: 2.4 l/min/m^2 Tr icuspid Valve TR Velocity: 2.85 m/s TR Gradient: 32.49 mmHgSilver [facility] CampusPOCT-GLUCOSE [id number] 14:42:00 Test Item Value Reference Range Interpretation Comments POC-GLUCOSE METER 84 mg/dL 70-110 : TESTED A T [facility] 6720 (BEAKER) (test code = [facility], [facility]) [address]: Button Inspector/Techni slick ID = [id number] for BRIS RAJAT, MARIO ALBERTO POCT-GLUCOSE [id number] 13:17:00 Test Item Value Reference Range Interpretation Comments POC-GLUCOSE METER 84 mg/dL 70-110 : TESTED A T [facility] 6720 (BEAKER) (test code = [facility], [facility]) [address]: Button Inspector/Techni slick ID = [id number] for BRIS RAJAT, MARIO ALBERTO POCT-GLUCOSE [id number] 12:38:00 Test Item Value Reference Range Interpretation Comments POC-GLUCOSE METER 85 mg/dL 70-110 : TESTED A T [facility] 6720 (BEAKER) (test code = [facility], [facility]8) [address]: Button Inspector/Techni slick ID = [id number] for BRIS RAJAT, MARIO ALBERTO POCT-GLUCOSE [id number] 11:03:00 Test Item Value Reference Range Interpretation Comments POC-GLUCOSE METER 92 mg/dL 70-110 : TESTED A T [facility] 6720 (BEAKER) (test code = [facility], [facility]8) [address]: Button Inspector/Techni lsick ID = [id number] for BRIS RAJAT, MARIO ALBERTO SARS-COV2/RT-PCR ([facility])2020-06-02 10:54:00 Test Item Value Reference Range Interpretation Comments SARS-COV2/RT-PCR (test Negative Not Detected, Negative, code = 4044372) See external report for linked test SARS-COV-2 PERFORMING LAB [facility] (test code = 4488365) Negative result for this test determines that SARS-CoV-2 RNA was not present in the specimen above the Limit of Detection (LOD). However, Negative results do not preclude SARS-CoV-2 infection and should not be used as the sole basis for treatment or patient management decisions. Negative results mustbe combined with clinical observations, patient history, and epidemiological information. A false negative result may occur if a specimen is improperly collected, transported or handled. A false negative result should be considered if patient's recent exposures or clinical presentation indicate that COVID-19 (SARS-CoV-2) is likely and diagnostic tests for other causes of illness are negative. Re-testing should be considered in cases of suspected false negatives.The limit of detection for this assay is 800 copies/mL.This SARS CoV-2 test is a real-time RT-PCR test intended for the qualitative detection of nucleic acid from SARS-CoV-2 in a nasopharyngeal swab specimen collected from individuals suspected of COVID-19 by their healthcare provider.This test has not been Food and Drug Administration (FDA) cleared or approved. This is a modified version of an approved Emergency Use Authorization (EUA) and is in the process of review by the FDA. Once authorized by the FDA, the issued EUA will be effective until the declaration that circumstances exist justifying the authorization of the emergency use of in vitro diagnostic tests for detection and/or diagnosis of COVID-19 is terminated under Section 564(b)(2) of the Act or the EUA is revoked under Section 564(g) of the Act.Fact Sheet for Healthcare Providers:https://www.[employer]/sites/default/files/product/documents/Fact_Shee l_XI_Gxtrgoizn_Ghph_MXXR-ZhN-5.pdfFact Sheet for Healthcare Patients:https://www.[employer]/sites/default/files/product/ documents/Kzlc_Qgluw_Yftbmuih_Sori_EVHB-WjC-8.pdfPerforming Laboratory:[facility], [place] [address]Pulkqhgwvu A1c 2020-06-02 10:37:00 Test Item Value Reference Range Interpretation Comments Hemoglobin A1C (test code = 4548-4) 4.3 % 4.3-6.1 Lab Interpretation (test code = Normal 46397-7) [facility] CampusHEMOGLOBIN [id number] 10:37:00 Test Item Value Reference Range Interpretation Comments HEMOGLOBIN A1C (BEAKER) (test code = 4.3 % 4.3-6.1 368) POCT-GLUCOSE [id number] 09:53:00 Test Item Value Reference Range Interpretation Comments POC-GLUCOSE METER 112 mg/dL 70-110 H : TESTED A T [facility] 6720 (BEAKER) (test code = [facility] [place] [facility], 1538) [address]: Button Inspector/Techni slick ID = [id number] for MARIO ALBERTO RAJAN Blood gas, [id number] 09:40:00 Test Item Value Reference Range Interpretation Comments pH, Arterial (test code 7.37 7.35-7.45 = 2744-1) pCO2, Arterial (test 49 See_Comment H [Autom ated message] code = 2019-8) The system [employer] generated this result transmit nilesh reference range : 35 - 45 mm Hg. The reference range was not used to interpret this result as normal/abnormal . pO2, Arterial (test 153 See_Comment H [Automa nilesh message] code = 2703-7) The system [employer] generated this result transmit nilesh reference range : 80 - 90 mm Hg. The reference range was not used to interpret this result as normal/abnormal . O2 Sat, Arterial (test 98.9 % 96-97 H code = 2708-6) HCO3, Arterial (test 27 mmol/L 21-29 code = 1960-4) Base Excess, Arterial 1.5 mmol/L -2-3 (test code = 1925-7) Patient Temperature 36.5 (test code = 8310-5) FIO2 (test code = 1819) 21 Lab Interpretation Abnormal (test code = 41934-4) [facility] CampusBASIC METABOLIC [id number] 09:40:00 Test Item Value Reference Range Interpretation Comments SODIUM (BEAKER) 145 meq/L 136-145 (test code = 381) POTASSIUM (BEAKER) 4.4 meq/L 3.5-5.1 (test code = 379) CHLORIDE (BEAKER) 113 meq/L 98-107 H (test code = 382) CO2 (BEAKER) (test 25 meq/L 22-29 code = 355) BLOOD UREA NITROGEN 15 mg/dL 7-21 (BEAKER) (test code = 354) CREATININE (BEAKER) 0.94 mg/dL 0.57-1.25 (test code = 358) GLUCOSE RANDOM 108 mg/dL 70-105 H (BEAKER) (test code = 652) CALCIUM (BEAKER) 8.5 mg/dL 8.4-10.2 (test code = 697) EGFR (BEAKER) (test 71 mL/min/1.73 ESTIMA NILESH GFR IS code = 1092) sq m NOT ACCURATE CREATININE CLEARANCE IN PREDICTING GLOMERULAR FILTRATION RATE . ESTIMATED GFR I S NOT APPLICABLE FOR DIALYSIS PATIEN TS. Button Inspector ID - EDASIBLOOD GAS, [id number] 09:40:00 Test Item Value Reference Range Interpretation Comments PH ARTERIAL (BEAKER) (test code = 7.37 7.35-7.45 383) PCO2 ARTERIAL (BEAKER) (test code 49 mm Hg 35-45 H = 384) PO2 ARTERIAL (BEAKER) (test code = 153 mm Hg 80-90 H 385) O2 SATURATION ARTERIAL (BEAKER) 98.9 % 96.0-97.0 H (test code = 386) HCO3 ARTERIAL (BEAKER) (test code 27 mmol/L 21-29 = 388) BASE EXCESS ARTERIAL (BEAKER) 1.5 mmol/L -2.0-3.0 (test code = 387) PATIENT TEMPERATURE (BEAKER) (test 36.5 code = 1818) FIO2 (BEAKER) (test code = 1819) 21.0 POCT-GLUCOSE [id number] 08:24:00 Test Item Value Reference Range Interpretation Comments POC-GLUCOSE METER 84 mg/dL 70-110 : TESTED A T [facility] 6720 (BEAKER) (test code = [place], 1538) [address]: Button Inspector/Techni slick ID = [id number] for CECILIOELIF RAJATMARIO ALBERTO Suresh [id number] 07:01:00 Test Item Value Reference Range Interpretation Comments MAGNESIUM (BEAKER) (test code = 1.9 mg/dL 1.6-2.6 627) Button Inspector ID - [id number] 07:01:00 Test Item Value Reference Range Interpretation Comments PHOSPHORUS (BEAKER) (test code = 1.7 mg/dL 2.3-4.7 L 604) Button Inspector ID - EDASIPOCT-GLUCOSE [id number] 05:59:00 Test Item Value Reference Range Interpretation Comments POC-GLUCOSE METER 99 mg/dL 70-110 : TESTED A T [facility] 67[address] (BEAKER) (test code = [place], 1538) [address]: Button Inspector/Techni slick ID = [id number] for Neil Pham [id number] 05:48:00 Test Item Value Reference Range Interpretation Comments Ferritin (test code = 607.07 ng/mL 5-275 H 2276-4) PAOLA (test code = PAOLA) Button Inspector ID - EDASI Lab Interpretation (test Abnormal code = 80709-8) [facility] CampusVitamin B12 and [id number] 05:48:00 Test Item Value Reference Range Interpretation Comments Vitamin B12 (test 562 pg/mL 213-816 code = 2132-9) Folate (test code = 3.30 ng/mL See_Comment L [Automa nilesh 2284-8) message] The system which generated this result transmit nilesh reference range : >=7.00. The reference range was not used to interpret this result as normal/abnormal . PAOLA (test code = PAOLA) Button Inspector ID - EDASI Lab Interpretation Abnormal (test code = 07678-9) [facility] CampusFERRITIN2021-03-07 05:48:00 Test Item Value Reference Range Interpretation Comments FERRITIN (BEAKER) (test code = 607.07 ng/mL 5.00-275.00 H 361) Button Inspector ID - EDASIVITAMIN B12 AND [id number] 05:48:00 Test Item Value Reference Range Interpretation Comments VITAMIN B12 (BEAKER) 562 pg/mL 213-816 (test code = 774) FOLATE (BEAKER) 3.30 ng/mL See_Comment L [Automated message] (test code = 362) The system which generated this result transmitted ref erence range: >=7.00. The reference range was not used to interpr et this result as normal/abnormal . Button Inspector ID - CHANTALEISOL,60 [id number] 05:35:00 Test Item Value Reference Range Interpretation Comments Cortisol, Baseline 8.5 mcg/dL (test code = 86935-1) Cortisol 30 minute 15.4 mcg/dL (test code = 57271-4) Cortisol, 60 23.1 ug/dL Minute (test code = 87586-7) PAOLA (test code = ACTH STIMULATION TEST PAOLA) INTERPRETATION GUIDELINES(Synonyms: Cortrosyn Test, Cosyntropin or Corticotropin Stimulation Test) Adenocorticotropic hormone (ACTH)is a tropic hormone, made in the pituitary gland, which travels trhough the bloodstream and stimulates the cortex of the adrenal glands to release cortisol. Cortisol is a primary hormone, which aids the body's metabolism of fats, carbohydrates, and protein as well as sodium and potassium regulation. ACTH Stimulation Test: Exogenous administration of biologically active ACTH stimulates the secretion of cortisol from the adrenal gland. This test is used to evaluate adrenal function by measuring cortisol levels at baseline and at 30 and 60 minutes after the administration of 250 micrograms of cosyntropin (Cortrosyn). Patients who have received exogenous corticosteroids immediately prior to performing the ACTH Stimulation Test will often have elevated baseline cortisol levels, which may lead to erroneous interpretation of test results. The notable exception is with dexamethasone. Normal Response: An increase in cortisol after stimulation by ACTH is normal. Post-stimulation cortisol concentration should be greater than 20 mcg/dL or the rate of rise from baseline cortisol should be greater than or equal to 9 mcg/dL. Patients with sepsis or septic shock: According to a study by Dejan et al (JOEY 2000,283(8):6886-45), the ACTH Stimulation Test provides important prognostic information. This study defined 3 groups of patients with sepsis or septic shock: 1. Good Survival: Low basal cortisol (<or=34 mcg/dL) and high ACTH response (>9mcg/dL) 2. Intermediate Survival: Low basal cortisol (<34 mcg/dL) and low response to ACTH (<or=9 mcg/dL) OR High basal cortisol (>34 mcg/dL) or high ACTH response (>9 mcg/dL) 3. Poor Survival: High basal cortisol (>34 mcg/dL) and low ACTH response (<or=9 mcg/dL). Treatment of patients with relative adrenal dysfunction may be indicated based on test results and the clinical condition of the patient. Additional information, including treatment recommendations, is available in critically ill patients, approved by the Pharmacy, Nutrition, and Therapeutics Committee on 03/07/2004 and available through the Pharmacy Policy and Procedure Section on The Source. Button Inspector ID - DARRELL Bassett [facility] HospitalCORT[facility]OL,60 [id number] 05:35:00 Test Item Value Reference Range Interpretation Comments CORTISOL BASELINE NETWORKED 8.5 mcg/dL (BEAKER) (test code = 2307) CORTISOL 30 MINUTE NETWORKED 15.4 mcg/dL (BEAKER) (test code = 2308) CORTISOL, 60 MINUTE (BEAKER) 23.1 ug/dL (test code = 1805) ACTH STIMULATION TEST INTERPRETATION GUIDELINES(Synonyms: Cortrosyn Test, Cosyntropin or Corticotropin Stimulation Test)Adenocorticotropic hormone (ACTH)is a tropic hormone, made in the pituitary gland, which travels trhough the bloodstream and stimulates the cortex of the adrenal glands to release cortisol. Cortisol is a primary hormone, which aids the body's metabolism of fats, carbohydrates, and protein as well as sodium and potassium regulation.ACTH Stimulation Test: Exogenous administrationof biologically active ACTH stimulates the secretion of cortisol from the adrenal gland. This test is used to evaluate adrenal function by measuring cortisol levels at baseline and at 30 and 60 minutesafter the administration of 250 micrograms of cosyntropin (Cortrosyn). Patients who have received exogenous corticosteroids immediately prior to performing the ACTH Stimulation Test will often have elevated baseline cortisol levels, which may lead to erroneous interpretation of test results. The notable exception is with dexamethasone.Normal Response: An increase in cortisol after stimulation by ACTHis normal. Post-stimulation cortisol concentration should be greater than 20 mcg/dL or the rate of rise from baseline cortisol should be greater than or equal to 9 mcg/dL.Patients with sepsis or septicshock: According to a study by Dejan et al (JOEY 2000,283(8):9334-45), the ACTH Stimulation Test provides important prognostic information. This study defined 3 groups of patients with sepsis or septic shock: 1. Good Survival: Low basal cortisol (<or=34 mcg/dL) and high ACTH response (>9mcg/dL) 2. Intermediate Survival: Low basal cortisol (<34 mcg/dL) and low response to ACTH (&l t;or=9 mcg/dL) OR High basal cortisol (>34 mcg/dL) or high ACTH response (>9 mcg/dL) 3.Poor Survival: High basal cortisol (>34 mcg/dL) and low ACTH response (<or=9 mcg/dL).Treatment of patients with relative adrenal dysfunction may be indicated based on test results and the clinical condition of the patient. Additional information, including treatment recommendations, is available in critically ill patients, approved by the Pharmacy, Nutrition, and Therapeutics Committee on 03/07/2004 and available through the Pharmacy Policy and Procedure Section on The Source.Button Inspector YESSY RAMÍREZ MCORTISOL,30 MIN 2020-06-02 05:34:00 Test Item Value Reference Range Interpretation Comments Cortisol, Baseline 8.5 mcg/dL (test code = 65231-7) Cortisol, 30 15.4 ug/dL Minute (test code = 87864-3) PAOLA (test code = ACTH STIMULATION TEST PAOLA) INTERPRETATION GUIDELINES(Synonyms: Cortrosyn Test, Cosyntropin or Corticotropin Stimulation Test) Adenocorticotropic hormone (ACTH)is a tropic hormone, made in the pituitary gland, which travels trhough the bloodstream and stimulates the cortex of the adrenal glands to release cortisol. Cortisol is a primary hormone, which aids the body's metabolism of fats, carbohydrates, and protein as well as sodium and potassium regulation. ACTH Stimulation Test: Exogenous administration of biologically active ACTH stimulates the secretion of cortisol from the adrenal gland. This test is used to evaluate adrenal function by measuring cortisol levels at baseline and at 30 and 60 minutes after the administration of 250 micrograms of cosyntropin (Cortrosyn). Patients who have received exogenous corticosteroids immediately prior to performing the ACTH Stimulation Test will often have elevated baseline cortisol levels, which may lead to erroneous interpretation of test results. The notable exception is with dexamethasone. Normal Response: An increase in cortisol after stimulation by ACTH is normal. Post-stimulation cortisol concentration should be greater than 20 mcg/dL or the rate of rise from baseline cortisol should be greater than or equal to 9 mcg/dL. Patients with sepsis or septic shock: According to a study by Dejan et al (JOEY 2000,283(8):1038-45), the ACTH Stimulation Test provides important prognostic information. This study defined 3 groups of patients with sepsis or septic shock: 1. Good Survival: Low basal cortisol (<or=34 mcg/dL) and high ACTH response (>9mcg/dL) 2. Intermediate Survival: Low basal cortisol (<34 mcg/dL) and low response to ACTH (<or=9 mcg/dL) OR High basal cortisol (>34 mcg/dL) or high ACTH response (>9 mcg/dL) 3. Poor Survival: High basal cortisol (>34 mcg/dL) and low ACTH response (<or=9 mcg/dL). Treatment of patients with relative adrenal dysfunction may be indicated based on test results and the clinical condition of the patient. Additional information, including treatment recommendations, is available in critically ill patients, approved by the Pharmacy, Nutrition, and Therapeutics Committee on 03/07/2004 and available through the Pharmacy Policy and Procedure Section on The Source. Button Inspector ID - DARRELL M [facility] CampusCORTISOL,30 [id number] 05:34:00 Test Item Value Reference Range Interpretation Comments CORTISOL BASELINE NETWORKED 8.5 mcg/dL (BEAKER) (test code = 2307) CORTISOL, 30 MINUTE (BEAKER) (test 15.4 ug/dL code = 1804) ACTH STIMULATION TEST INTERPRETATION GUIDELINES(Synonyms: Cortrosyn Test, Cosyntropin or Corticotropin Stimulation Test)Adenocorticotropic hormone (ACTH)is a tropic hormone, made in the pituitary gland, which travels trhough the bloodstream and stimulates the cortex of the adrenal glands to release cortisol. Cortisol is a primary hormone, which aids the body's metabolism of fats, carbohydrates, and protein as well as sodium and potassium regulation.ACTH Stimulation Test: Exogenous administrationof biologically active ACTH stimulates the secretion of cortisol from the adrenal gland. This test is used to evaluate adrenal function by measuring cortisol levels at baseline and at 30 and 60 minutesafter the administration of 250 micrograms of cosyntropin (Cortrosyn). Patients who have received exogenous corticosteroids immediately prior to performing the ACTH Stimulation Test will often have elevated baseline cortisol levels, which may lead to erroneous interpretation of test results. The notable exception is with dexamethasone.Normal Response: An increase in cortisol after stimulation by ACTHis normal. Post-stimulation cortisol concentration should be greater than 20 mcg/dL or the rate of rise from baseline cortisol should be greater than or equal to 9 mcg/dL.Patients with sepsis or septicshock: According to a study by Dejan et al (JOEY 2000,283(8):1038-45), the ACTH Stimulation Test provides important prognostic information. This study defined 3 groups of patients with sepsis or septic shock: 1. Good Survival: Low basal cortisol (<or=34 mcg/dL) and high ACTH response (>9mcg/dL) 2. Intermediate Survival: Low basal cortisol (<34 mcg/dL) and low response to ACTH (&l t;or=9 mcg/dL) OR High basal cortisol (>34 mcg/dL) or high ACTH response (>9 mcg/dL) 3.Poor Survival: High basal cortisol (>34 mcg/dL) and low ACTH response (<or=9 mcg/dL).Treatment of patients with relative adrenal dysfunction may be indicated based on test results and the clinical condition of the patient. Additional information, including treatment recommendations, is available in critically ill patients, approved by the Pharmacy, Nutrition, and Therapeutics Committee on 03/07/2004 and available through the Pharmacy Policy and Procedure Section on The Source.Button Inspector ID - DARRELL MCORTISOL,BASELINE 2020-06-02 05:33:00 Test Item Value Reference Range Interpretation Comments Cortisol, Baseline 8.5 ug/dL (test code = 1803) PAOLA (test code = ACTH STIMULATION TEST PAOLA) INTERPRETATION GUIDELINES(Synonyms: Cortrosyn Test, Cosyntropin or Corticotropin Stimulation Test) Adenocorticotropic hormone (ACTH)is a tropic hormone, made in the pituitary gland, which travels trhough the bloodstream and stimulates the cortex of the adrenal glands to release cortisol. Cortisol is a primary hormone, which aids the body's metabolism of fats, carbohydrates, and protein as well as sodium and potassium regulation. ACTH Stimulation Test: Exogenous administration of biologically active ACTH stimulates the secretion of cortisol from the adrenal gland. This test is used to evaluate adrenal function by measuring cortisol levels at baseline and at 30 and 60 minutes after the administration of 250 micrograms of cosyntropin (Cortrosyn). Patients who have received exogenous corticosteroids immediately prior to performing the ACTH Stimulation Test will often have elevated baseline cortisol levels, which may lead to erroneous interpretation of test results. The notable exception is with dexamethasone. Normal Response: An increase in cortisol after stimulation by ACTH is normal. Post-stimulation cortisol concentration should be greater than 20 mcg/dL or the rate of rise from baseline cortisol should be greater than or equal to 9 mcg/dL. Patients with sepsis or septic shock: According to a study by Dejan et al (JOEY 2000,283(8):1133-45), the ACTH Stimulation Test provides important prognostic information. This study defined 3 groups of patients with sepsis or septic shock: 1. Good Survival: Low basal cortisol (<or=34 mcg/dL) and high ACTH response (>9mcg/dL) 2. Intermediate Survival: Low basal cortisol (<34 mcg/dL) and low response to ACTH (<or=9 mcg/dL) OR High basal cortisol (>34 mcg/dL) or high ACTH response (>9 mcg/dL) 3. Poor Survival: High basal cortisol (>34 mcg/dL) and low ACTH response (<or=9 mcg/dL). Treatment of patients with relative adrenal dysfunction may be indicated based on test results and the clinical condition of the patient. Additional information, including treatment recommendations, is available in critically ill patients, approved by the Pharmacy, Nutrition, and Therapeutics Committee on 03/07/2004 and available through the Pharmacy Policy and Procedure Section on The Source. [facility] CampusCORTISOL,[id number] 05:33:00 Test Item Value Reference Range Interpretation Comments CORTISOL, BASELINE (BEAKER) (test 8.5 ug/dL code = 1803) ACTH STIMULATION TEST INTERPRETATION GUIDELINES(Synonyms: Cortrosyn Test, Cosyntropin or Corticotropin Stimulation Test)Adenocorticotropic hormone (ACTH)is a tropic hormone, made in the pituitary gland, which travels trhough the bloodstream and stimulates the cortex of the adrenal glands to release cortisol. Cortisol is a primary hormone, which aids the body's metabolism of fats, carbohydrates, and protein as well as sodium and potassium regulation.ACTH Stimulation Test: Exogenous administrationof biologically active ACTH stimulates the secretion of cortisol from the adrenal gland. This test is used to evaluate adrenal function by measuring cortisol levels at baseline and at 30 and 60 minutesafter the administration of 250 micrograms of cosyntropin (Cortrosyn). Patients who have received exogenous corticosteroids immediately prior to performing the ACTH Stimulation Test will often have elevated baseline cortisol levels, which may lead to erroneous interpretation of test results. The notable exception is with dexamethasone.Normal Response: An increase in cortisol after stimulation by ACTHis normal. Post-stimulation cortisol concentration should be greater than 20 mcg/dL or the rate of rise from baseline cortisol should be greater than or equal to 9 mcg/dL.Patients with sepsis or septicshock: According to a study by Dejan et al (JOEY 2000,283(8):2561-45), the ACTH Stimulation Test provides important prognostic information. This study defined 3 groups of patients with sepsis or septic shock: 1. Good Survival: Low basal cortisol (<or=34 mcg/dL) and high ACTH response (>9mcg/dL) 2. Intermediate Survival: Low basal cortisol (<34 mcg/dL) and low response to ACTH (&l t;or=9 mcg/dL) OR High basal cortisol (>34 mcg/dL) or high ACTH response (>9 mcg/dL) 3.Poor Survival: High basal cortisol (>34 mcg/dL) and low ACTH response (<or=9 mcg/dL).Treatment of patients with relative adrenal dysfunction may be indicated based on test results and the clinical condition of the patient. Additional information, including treatment recommendations, is available in critically ill patients, approved by the Pharmacy, Nutrition, and Therapeutics Committee on 03/07/2004 and available through the Pharmacy Policy and Procedure Section on The Source.Iron, TIBC, % sat. (without ferritin) 2020-06-02 05:13:00 Test Item Value Reference Range Interpretation Comments Iron (test code = 2498-4) 37.0 ug/dL 40-160 L TIBC (test code = 2500-7) 106 ug/dL 250-450 L Iron % Saturation (test 35 % 20-55 code = 2502-3) PAOLA (test code = PAOLA) Button Inspector ID - EDASI Lab Interpretation (test Abnormal code = 80560-3) [facility] CampusIRON, TIBC, % SAT. (WITHOUT FERRITIN)2020-06-02 05:13:00 Test Item Value Reference Range Interpretation Comments IRON (BEAKER) (test code = 547) 37.0 ug/dL 40.0-160.0 L TOTAL IRON BINDING CAPACITY 106 ug/dL 250-450 L (BEAKER) (test code = 769) IRON % SATURATION (2) (BEAKER) 35 % 20-55 (test code = 1261) Button Inspector ID - EDASIPROTHROMBIN TIME/[id number] 04:40:00 Test Item Value Reference Range Interpretation Comments PROTIME (BEAKER) 24.3 seconds 11.9-14.2 H (test code = 759) INR (BEAKER) (test 2.25 See_Comment [Automat ed message] code = 370) The system [employer] generated this result transmitted ref erence range: <=5.90. The reference range was not used to int erpret this result as normal/abnormal . Effective 08/24/2018: PT Reference Range ChangeNew: 11.9-14.2 Previous: 11.7- 14.7RECOMMENDED COUMADIN/WARFARIN INR THERAPY RANGESSTANDARD DOSE: 2.0-3.0 Includes: PROPHYLAXIS for venous thrombosis, systemic embolization; TREATMENT for venous thrombosis and/or pulmonary embolus.HIGH RISK: Target INR is2.5-3.5 for patients wiht mechanical heart valves.CALCIUM, [id number] 04:36:00 Test Item Value Reference Range Interpretation Comments CALCIUM IONIZED (BEAKER) (test 1.17 mmol/L 1.12-1.27 code = 698) PH, BLOOD (BEAKER) (test code = 7.40 1810) BASIC METABOLIC [id number] 04:35:00 Test Item Value Reference Range Interpretation Comments SODIUM (BEAKER) 141 meq/L 136-145 (test code = 381) POTASSIUM (BEAKER) 3.1 meq/L 3.5-5.1 L (test code = 379) CHLORIDE (BEAKER) 108 meq/L 98-107 H (test code = 382) CO2 (BEAKER) (test 24 meq/L 22-29 code = 355) BLOOD UREA NITROGEN 18 mg/dL 7-21 (BEAKER) (test code = 354) CREATININE (BEAKER) 0.96 mg/dL 0.57-1.25 (test code = 358) GLUCOSE RANDOM 84 mg/dL 70-105 (BEAKER) (test code = 652) CALCIUM (BEAKER) 8.4 mg/dL 8.4-10.2 (test code = 697) EGFR (BEAKER) (test 70 mL/min/1.73 ESTIMA NILESH GFR IS code = 1092) sq m NOT ACCURATE CREATININE CLEARANCE IN PREDICTING GLOMERULAR FILTRATION RATE . ESTIMATED GFR I S NOT APPLICABLE FOR DIALYSIS PATIEN TS. Button Inspector ID - EDASILactic acid, [id number] 04:27:00 Test Item Value Reference Range Interpretation Comments Lactate, Venous (test code 0.84 mmol/L 0.5-2.2 = 2872) PAOLA (test code = PAOLA) Button Inspector ID - EDASI Lab Interpretation (test Normal code = 61852-1) [facility] [id number] 04:27:00 Test Item Value Reference Range Interpretation Comments LACTATE BLOOD VENOUS (2) (BEAKER) 0.84 mmol/L 0.50-2.20 (test code = 2872) Button Inspector ID - EDASICBC W/PLT COUNT & AUTO [id number] 04:11:00 Test Item Value Reference Range Interpretation Comments WHITE BLOOD CELL COUNT (BEAKER) 3.1 K/ L 3.5-10.5 L (test code = 775) RED BLOOD CELL COUNT (BEAKER) 2.55 M/ L 3.93-5.22 L (test code = 761) HEMOGLOBIN (BEAKER) (test code = 8.0 GM/DL 11.2-15.7 L 410) HEMATOCRIT (BEAKER) (test code = 24.6 % 34.1-44.9 L 411) MEAN CORPUSCULAR VOLUME (BEAKER) 96.5 fL 79.4-94.8 H (test code = 753) MEAN CORPUSCULAR HEMOGLOBIN 31.4 pg 25.6-32.2 (BEAKER) (test code = 751) MEAN CORPUSCULAR HEMOGLOBIN CONC 32.5 GM/DL 32.2-35.5 (BEAKER) (test code = 752) RED CELL DISTRIBUTION WIDTH 12.6 % 11.7-14.4 (BEAKER) (test code = 412) PLATELET COUNT (BEAKER) (test 150 K/CU MM 150-450 code = 756) MEAN PLATELET VOLUME (BEAKER) 9.9 fL 9.4-12.3 (test code = 754) NUCLEATED RED BLOOD CELLS 0 /100 WBC 0-0 (BEAKER) (test code = 413) NEUTROPHILS RELATIVE PERCENT 51 % (BEAKER) (test code = 429) LYMPHOCYTES RELATIVE PERCENT 36 % (BEAKER) (test code = 430) MONOCYTES RELATIVE PERCENT 10 % (BEAKER) (test code = 431) EOSINOPHILS RELATIVE PERCENT 2 % (BEAKER) (test code = 432) BASOPHILS RELATIVE PERCENT 0 % (BEAKER) (test code = 437) NEUTROPHILS ABSOLUTE COUNT 1.59 K/ L 1.56-6.13 (BEAKER) (test code = 670) LYMPHOCYTES ABSOLUTE COUNT 1.13 K/ L 1.18-3.74 L (BEAKER) (test code = 414) MONOCYTES ABSOLUTE COUNT (BEAKER) 0.31 K/ L 0.24-0.36 (test code = 415) EOSINOPHILS ABSOLUTE COUNT 0.05 K/ L 0.04-0.36 (BEAKER) (test code = 416) BASOPHILS ABSOLUTE COUNT (BEAKER) 0.01 K/ L 0.01-0.08 (test code = 417) IMMATURE GRANULOCYTES-RELATIVE 1 % 0-1 PERCENT (BEAKER) (test code = 2801) POCT-GLUCOSE [id number] 00:53:00 Test Item Value Reference Range Interpretation Comments POC-GLUCOSE METER 44 mg/dL 70-110 L : TESTED A T [facility] 67[facility] (BEAKER) (test code = [place], 1538) [address]: Button Inspector/Techni slick ID = [id number] for RUEL HERNÁNDEZ TSH/Free T4 If [id number] 00:03:00 Test Item Value Reference Range Interpretation Comments TSH (test code = 1.119 See_Comment [Automated 62146-1) message] The system which generated this result transmit nilesh reference range : 0.350 - 4.940 uIU/mL. The reference range was not used to interpret this result as normal/abnormal . PAOLA (test code = PAOLA) Button Inspector ID - DB Lab Interpretation Normal (test code = 15435-4) [facility] CampusCortisol2021-[facility]-07 00:03:00 Test Item Value Reference Range Interpretation Comments Cortisol, Total (test code = 8.5 ug/dL 3.7-19.4 2755) PAOLA (test code = PAOLA) Button Inspector ID - DB Lab Interpretation (test Normal code = 40836-9) [facility]OL2021-[facility]-07 00:03:00 Test Item Value Reference Range Interpretation Comments CORTISOL, TOTAL (BEAKER) (test code 8.5 ug/dL 3.7-19.4 = 2755) Button Inspector ID - DBTSH/FREE T4 IF [id number] 00:03:00 Test Item Value Reference Range Interpretation Comments THYROID STIMULATING HORMONE 1.119 uIU/mL 0.350-4.940 (BEAKER) (test code = 772) Button Inspector ID - DBCOMPREHENSIVE METABOLIC [id number] 23:37:00 Test Item Value Reference Range Interpretation Comments TOTAL PROTEIN 6.5 gm/dL 6.0-8.3 (BEAKER) (test code = 770) ALBUMIN (BEAKER) 2.1 g/dL 3.5-5.0 L (test code = 1145) ALKALINE PHOSPHATASE 57 U/L 40-150 (BEAKER) (test code = 346) BILIRUBIN TOTAL 0.4 mg/dL 0.2-1.2 (BEAKER) (test code = 377) SODIUM (BEAKER) (test 138 meq/L 136-145 code = 381) POTASSIUM (BEAKER) 3.2 meq/L 3.5-5.1 L (test code = 379) CHLORIDE (BEAKER) 106 meq/L 98-107 (test code = 382) CO2 (BEAKER) (test 23 meq/L 22-29 code = 355) BLOOD UREA NITROGEN 20 mg/dL 7-21 (BEAKER) (test code = 354) CREATININE (BEAKER) 1.14 mg/dL 0.57-1.25 (test code = 358) GLUCOSE RANDOM 98 mg/dL 70-105 (BEAKER) (test code = 652) CALCIUM (BEAKER) 8.0 mg/dL 8.4-10.2 L (test code = 697) AST (SGOT) (BEAKER) 10 U/L 5-34 (test code = 353) ALT (SGPT) (BEAKER) < U/L 6-55 L (test code = 347) EGFR (BEAKER) (test 57 mL/min/1.73 ESTIMA NILESH GFR IS code = 1092) sq m NOT ACCURATE CREATININE CLEARANCE IN PREDICTING GLOMERULAR FILTRATION RATE . ESTIMATED GFR I S NOT APPLICABLE FOR DIALYSIS PATIEN TS. Button Inspector ID - DBB-type Natriuretic Factor (BNP)2020-06-01 23:32:00 Test Item Value Reference Range Interpretation Comments BNP (test code = 19707-0) 24 pg/mL 0-100 PAOLA (test code = PAOLA) Button Inspector ID - DB Lab Interpretation (test Normal code = 94800-5) [facility] CampusTroponin [id number] 23:32:00 Test Item Value Reference Range Interpretation Comments Troponin I (test code = <0.01 0-0.03 55309-9) PAOLA (test code = PAOLA) Troponin I (TnI) levels must be interpreted in the context of the presenting symptoms and the clinical findings. Elevated TnI levels indicate myocardial damage, but are not specific for ischemic heart disease. Elevated TnI levels are seen in patients with other cardiac conditions (including myocarditis and congestive heart failure), and slight TnI elevations occur in patients with other conditions, including sepsis, renal failure, acidosis, acute neurological disease, and persistent tachyarrhythmia.Opera tor ID - DB Lab Interpretation (test Normal code = 98525-8) [facility] CampusB-TYPE NATRIURETIC FACTOR (BNP)2020-06-01 23:32:00 Test Item Value Reference Range Interpretation Comments B-TYPE NATRIURETIC PEPTIDE (BEAKER) 24 pg/mL 0-100 (test code = 700) Button Inspector ID - DBTROPONIN [id number] 23:32:00 Test Item Value Reference Range Interpretation Comments TROPONIN I (BEAKER) (test code = 397) < ng/mL 0.00-0.03 Troponin I (TnI) levels must be interpreted in the context of the presenting symptoms and the clinical findings. Elevated TnI levels indicate myocardial damage, but are not specific for ischemic heart disease. Elevated TnI levels are seen in patients with other cardiac conditions (including myocarditis and congestive heart failure), and slight TnI elevations occur in patients with other conditions, including sepsis, renal failure, acidosis, acute neurological disease, and persistent tachyarrhythmia.Button Inspector ID - [id number] 23:30:00 Test Item Value Reference Range Interpretation Comments MAGNESIUM (BEAKER) (test code = 1.2 mg/dL 1.6-2.6 L 627) Button Inspector ID - DBPOCT-GLUCOSE [id number] 22:53:00 Test Item Value Reference Range Interpretation Comments POC-GLUCOSE METER 84 mg/dL 70-110 : TESTED A T [facility] 67[facility] (TYA) (test code = [place], 1538) [address]: Button Inspector/Techni slick ID = [id number] for NATHAN LLOYD RAD, CHEST, 1 VIEW, NON [id number] 22:18:00Reason for exam:- >dyspneaShould this be performed at the bedside?->Yes [facility] : 1950 Sex: FFINAL REPORT CLINICAL INDICATION: Dyspnea Comparison: 06/01/2020 A single view of the chest is submitted. The patient is rotated slightly to the left. The cardiomediastinal contours are stable. Central pulmonary vascular prominence and bilateral parenchymal opacities are similar to previous. There is no pneumothorax. IMPRESSION: No significant interval change. Signed: Jeaneth Duartemineral area [facility] Verified Date/Time: 06/01/2020 22:18:27 XR chest 1 view portable / [id number] 22:18:00Interface, External Ris In - 06/01/2020 10:20 PM CSTFINAL REPORT CLINICAL INDICATION: Dyspnea Comparison: 06/01/2020 A single view of the chest is submitted. The patient is rotated slightly to the left. The cardiomediastinal contours are stable. Central pulmonary vascular prominence and bilateral parenchymal opacities are similar to previous. There is no pneumothorax. IMPRESSION: No significant interval change. Signed: Jeaneth Duarte Verified Date/Time: 06/01/2020 22:18:27 [facility]PO[facility] [id number] 22:14:00 Test Item Value Reference Range Interpretation Comments POC-GLUCOSE METER 30 mg/dL 70-110 LL : TESTED A T [facility] (BEAKER) (test code = [place], 1538) [address]: Button Inspector/Techni slick ID = [id number] for MATH AI, VALSA LACTIC ACID, [id number] 20:48:00 Test Item Value Reference Range Interpretation Comments LACTATE BLOOD VENOUS (2) (BEAKER) 1.40 mmol/L 0.50-2.20 (test code = 2872) Button Inspector ID - DBCBC W/PLT COUNT & AUTO [id number] 20:37:00 Test Item Value Reference Range Interpretation Comments WHITE BLOOD CELL COUNT (BEAKER) 5.0 K/ L 3.5-10.5 (test code = 775) RED BLOOD CELL COUNT (BEAKER) 2.58 M/ L 3.93-5.22 L (test code = 761) HEMOGLOBIN (BEAKER) (test code = 7.9 GM/DL 11.2-15.7 L 410) HEMATOCRIT (BEAKER) (test code = 25.9 % 34.1-44.9 L 411) MEAN CORPUSCULAR VOLUME (BEAKER) 100.4 fL 79.4-94.8 H (test code = 753) MEAN CORPUSCULAR HEMOGLOBIN 30.6 pg 25.6-32.2 (BEAKER) (test code = 751) MEAN CORPUSCULAR HEMOGLOBIN CONC 30.5 GM/DL 32.2-35.5 L (BEAKER) (test code = 752) RED CELL DISTRIBUTION WIDTH 12.9 % 11.7-14.4 (BEAKER) (test code = 412) PLATELET COUNT (BEAKER) (test 159 K/CU MM 150-450 code = 756) MEAN PLATELET VOLUME (BEAKER) 10.3 fL 9.4-12.3 (test code = 754) NUCLEATED RED BLOOD CELLS 0 /100 WBC 0-0 (BEAKER) (test code = 413) NEUTROPHILS RELATIVE PERCENT 57 % (BEAKER) (test code = 429) LYMPHOCYTES RELATIVE PERCENT 29 % (BEAKER) (test code = 430) MONOCYTES RELATIVE PERCENT 13 % (BEAKER) (test code = 431) EOSINOPHILS RELATIVE PERCENT 1 % (BEAKER) (test code = 432) BASOPHILS RELATIVE PERCENT 0 % (BEAKER) (test code = 437) NEUTROPHILS ABSOLUTE COUNT 2.85 K/ L 1.56-6.13 (BEAKER) (test code = 670) LYMPHOCYTES ABSOLUTE COUNT 1.44 K/ L 1.18-3.74 (BEAKER) (test code = 414) MONOCYTES ABSOLUTE COUNT (BEAKER) 0.63 K/ L 0.24-0.36 H (test code = 415) EOSINOPHILS ABSOLUTE COUNT 0.05 K/ L 0.04-0.36 (BEAKER) (test code = 416) BASOPHILS ABSOLUTE COUNT (BEAKER) 0.02 K/ L 0.01-0.08 (test code = 417) IMMATURE GRANULOCYTES-RELATIVE 0 % 0-1 PERCENT (BEAKER) (test code = 2801) LACTIC ACID, [id number] 18:42:00 Test Item Value Reference Range Interpretation Comments LACTATE BLOOD VENOUS (2) (BEAKER) 1.54 mmol/L 0.50-2.20 (test code = 2872) Button Inspector ID - EDASIRAD, CHEST, 1 VIEW, NON [id number] 07:14:00Reason for exam:->[facility]psisVAL[facility] : 1950 Sex: FFINAL REPORT Chest one view. Clinical history: sepsis Comparison: No priors Discussion: A frontal chest is provided. Cardiac silhouette appears enlarged. There is a left-sided ICD device. There is left basilar/retrocardiac opacity, which may reflect atelectasis and/or consolidation. A small left effusion is also suspected. Right lung is clear. There is no vascular congestion , or pneumothorax. Bony structures demonstrate degenerative changes. Signed: Víctor Leger Verified Date/Time: 06/01/2020 07:14:27 Reading Location: [facility] [id number] Ortho Consult Reading Room [id number] 04:42:00 Test Item Value Reference Range Interpretation Comments Procalcitonin (test code = 0.08 ng/mL <0.05 H 72091-8) PAOLA (test code = PAOLA) SEPSIS RISK (ng/mL)Low: 0.05-0.50Intermedi ate: 0.51-2.00High: >=2.01 Lab Interpretation (test Abnormal code = 88057-5) [facility] CampusPROCALCITONIN2021-03-06 04:42:00 Test Item Value Reference Range Interpretation Comments PROCALCITONIN (BEAKER) (test code 0.08 ng/mL <0.05 H = 3036) SEPSIS RISK (ng/mL)Low: 0.05-0.50Intermediate: 0.51-2.00High: >=2.01URINALYSIS W/ REFLEX URINE [id number] 04:13:00 Test Item Value Reference Range Interpretation Comments COLOR (BEAKER) (test code = 470) Yellow CLARITY (BEAKER) (test code = 469) Hazy SPECIFIC GRAVITY UA (BEAKER) (test 1.009 1.001-1.035 code = 468) PH UA (BEAKER) (test code = 467) 5.5 5.0-8.0 PROTEIN UA (BEAKER) (test code = 20 mg/dL Negative A 464) GLUCOSE UA (BEAKER) (test code = Negative Negative 365) KETONES UA (BEAKER) (test code = Negative Negative 371) BILIRUBIN UA (BEAKER) (test code = Negative Negative 462) BLOOD UA (BEAKER) (test code = 461) Large Negative A NITRITE UA (BEAKER) (test code = Negative Negative 465) LEUKOCYTE ESTERASE UA (BEAKER) Large Negative A (test code = 466) UROBILINOGEN UA (BEAKER) (test code 0.2 mg/dL 0.2-1.0 = 463) RBC UA (BEAKER) (test code = 519) 19 /HPF WBC UA (BEAKER) (test code = 520) 127 /HPF BACTERIA (BEAKER) (test code = 517) Rare MUCUS (BEAKER) (test code = 1574) Rare SQUAMOUS EPITHELIAL (BEAKER) (test < /HPF code = 516) HYALINE CASTS (BEAKER) (test code = 2 /LPF 514) SOURCE(BEAKER) (test code = 2795) Button Inspector ID - [auto]Button Inspector ID - techCOMPREHENSIVE METABOLIC [id number] 03:08:00 Test Item Value Reference Range Interpretation Comments TOTAL PROTEIN 7.8 gm/dL 6.0-8.3 (BEAKER) (test code = 770) ALBUMIN (BEAKER) 2.6 g/dL 3.5-5.0 L (test code = 1145) ALKALINE PHOSPHATASE 70 U/L 40-150 (BEAKER) (test code = 346) BILIRUBIN TOTAL 0.5 mg/dL 0.2-1.2 (BEAKER) (test code = 377) SODIUM (BEAKER) (test 138 meq/L 136-145 code = 381) POTASSIUM (BEAKER) 3.5 meq/L 3.5-5.1 (test code = 379) CHLORIDE (BEAKER) 103 meq/L 98-107 (test code = 382) CO2 (BEAKER) (test 26 meq/L 22-29 code = 355) BLOOD UREA NITROGEN 26 mg/dL 7-21 H (BEAKER) (test code = 354) CREATININE (BEAKER) 1.27 mg/dL 0.57-1.25 H (test code = 358) GLUCOSE RANDOM 80 mg/dL 70-105 (BEAKER) (test code = 652) CALCIUM (BEAKER) 8.1 mg/dL 8.4-10.2 L (test code = 697) AST (SGOT) (BEAKER) 11 U/L 5-34 (test code = 353) ALT (SGPT) (BEAKER) < U/L 6-55 L (test code = 347) EGFR (BEAKER) (test 50 mL/min/1.73 ESTIMA NILESH GFR IS code = 1092) sq m NOT ACCURATE CREATININE CLEARANCE IN PREDICTING GLOMERULAR FILTRATION RATE . ESTIMATED GFR I S NOT APPLICABLE FOR DIALYSIS PATIEN TS. Button Inspector ID - [id number] 03:02:00 Test Item Value Reference Interpretation Comments Range Protime (test code = 23.0 See_Comment H [Autom ated 5902-2) message] The system which generated this result transmitted reference range : 11.9 - 14.2 seconds. The reference range was not used to interpret this result as normal/abnormal . INR (test code = 2.10 See_Comment [Automated 4601-6) message] The system which generated this result transmitted reference range : <=5.90. The reference range was not used to interpret this result as normal/abnormal . PTT (test code = 38.9 See_Comment H [Automated 73181-0) message] The system which generated this result transmitted reference range : 22.5 - 36.0 seconds. The reference range was not used to interpret this result as normal/abnormal . PAOLA (test code = Effective 08/24/2018: PAOLA) PT Reference Range ChangeNew: 11.9-14.2 Previous: 11.7-14.7 RECOMMENDED COUMADIN/WARFARIN INR THERAPY RANGESSTANDARD DOSE: 2.0-3.0 Includes: PROPHYLAXIS for venous thrombosis, systemic embolization; TREATMENT for venous thrombosis and/or pulmonary embolus.HIGH RISK: Target INR is 2.5-3.5 for patients wiht mechanical heart valves. Lab Interpretation Abnormal (test code = [id number]) [facility]PT/[id number] 03:02:00 Test Item Value Reference Range Interpretation Comments PROTIME (BEAKER) (test 23.0 seconds 11.9-14.2 H code = 759) INR (BEAKER) (test 2.10 See_Comment [Automat ed code = 370) message] The sy stem which generated this result transmitted reference range : <=5.90. The reference range was not used to interpret this result as normal/abnormal . PARTIAL THROMBOPLASTIN 38.9 seconds 22.5-36.0 H TIME (BEAKER) (test code = 760) Effective 08/24/2018: PT Reference Range ChangeNew: 11.9-14.2 Previous: 11.7- 14.7RECOMMENDED COUMADIN/WARFARIN INR THERAPY RANGESSTANDARD DOSE: 2.0-3.0 Includes: PROPHYLAXIS for venous thrombosis, systemic embolization; TREATMENT for venous thrombosis and/or pulmonary embolus.HIGH RISK: Target INR is2.5-3.5 for patients wiht mechanical heart valves.LACTIC ACID, [id number] 03:00:00 Test Item Value Reference Range Interpretation Comments LACTATE BLOOD VENOUS (2) (BEAKER) 1.11 mmol/L 0.50-2.20 (test code = 2872) Button Inspector ID - DBCBC W/PLT COUNT & AUTO [id number] 02:48:00 Test Item Value Reference Range Interpretation Comments WHITE BLOOD CELL COUNT (BEAKER) 5.1 K/ L 3.5-10.5 (test code = 775) RED BLOOD CELL COUNT (BEAKER) 2.90 M/ L 3.93-5.22 L (test code = 761) HEMOGLOBIN (BEAKER) (test code = 8.8 GM/DL 11.2-15.7 L 410) HEMATOCRIT (BEAKER) (test code = 28.7 % 34.1-44.9 L 411) MEAN CORPUSCULAR VOLUME (BEAKER) 99.0 fL 79.4-94.8 H (test code = 753) MEAN CORPUSCULAR HEMOGLOBIN 30.3 pg 25.6-32.2 (BEAKER) (test code = 751) MEAN CORPUSCULAR HEMOGLOBIN CONC 30.7 GM/DL 32.2-35.5 L (BEAKER) (test code = 752) RED CELL DISTRIBUTION WIDTH 12.6 % 11.7-14.4 (BEAKER) (test code = 412) PLATELET COUNT (BEAKER) (test 237 K/CU MM 150-450 code = 756) MEAN PLATELET VOLUME (BEAKER) 10.2 fL 9.4-12.3 (test code = 754) NUCLEATED RED BLOOD CELLS 0 /100 WBC 0-0 (BEAKER) (test code = 413) NEUTROPHILS RELATIVE PERCENT 65 % (BEAKER) (test code = 429) LYMPHOCYTES RELATIVE PERCENT 27 % (BEAKER) (test code = 430) MONOCYTES RELATIVE PERCENT 7 % (BEAKER) (test code = 431) EOSINOPHILS RELATIVE PERCENT 1 % (BEAKER) (test code = 432) BASOPHILS RELATIVE PERCENT 0 % (BEAKER) (test code = 437) NEUTROPHILS ABSOLUTE COUNT 3.31 K/ L 1.56-6.13 (BEAKER) (test code = 670) LYMPHOCYTES ABSOLUTE COUNT 1.38 K/ L 1.18-3.74 (BEAKER) (test code = 414) MONOCYTES ABSOLUTE COUNT (BEAKER) 0.37 K/ L 0.24-0.36 H (test code = 415) EOSINOPHILS ABSOLUTE COUNT 0.04 K/ L 0.04-0.36 (BEAKER) (test code = 416) BASOPHILS ABSOLUTE COUNT (BEAKER) 0.01 K/ L 0.01-0.08 (test code = 417) IMMATURE GRANULOCYTES-RELATIVE 0 % 0-1 PERCENT (BEAKER) (test code = 0891)
[2020-07-08 15:09] LABS: Absolute Lymphocytes (CBC) 1.5 K/uL (0.7-4.9); Basophils % 0.5 % (0-1.3); Hematocrit 26.7 % (36.0-45.0); Lymphocytes % 11.6 % (15.3-44.8); MPV 8.5 fL (7.6-11.3); RBC Red Blood Cell Count 2.78 M/uL (3.86-4.86)
[2020-07-08 15:21] LABS: Protime INR 2.97
[2020-07-08 15:29] LABS: ALT/SGPT 8 U/L (12-78); AST/SGOT 11 U/L (15-37); Albumin 2.1 g/dL (3.4-5.0); Alkaline Phosphatase 76 U/L (45-117); Amylase 37 U/L (25-115); BUN Blood Urea Nitrogen 19 mg/dL (7-18); Bicarbonate 22 mmol/L (21-32); Bilirubin Direct 0.3 mg/dL (0-0.2); Bilirubin Total 0.5 mg/dL (0.2-1.0); CKMB Creatine Kinase MB < 1.0 ng/mL (0.3-3.6); Creatine Phosphokinase 21 U/L (26-192); Glucose Level 123 mg/dL (74-106); Lipase 54 U/L (73-393); Potassium 4.9 mmol/L (3.5-5.1); Protein, Total 9.2 g/dL (6.4-8.2); Sodium Level 133 mmol/L (136-145); Troponin (Emerg Dept Use Only) < 0.02 ng/mL (0.0-0.045)
--- NOTE | 2020-07-08 15:35 | RAD REPORT ---
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 FINDINGS: Lung volumes are low. No acute lung parenchymal process. Retrocardiac left base assessment is limited. No significant parenchymal change noted from May 31 imaging. Heart size is stable. No a cute vascular engorgement. Left-sided defibrillator is in place. No measurable pleural effusion and n o pneumothorax. No acute bony abnormality seen. No acute aortic findings suspected. IMPRESSION: No acute cardiopulmonary process. No significant change from comparison.
[2020-07-08] MEDS ORDERED: NA CHLORIDE 0.9% 1,000 ML ONE (15:43)
[2020-07-08] MEDS ORDERED: NA CHLORIDE 0.9% 500 ML ONE (15:43)
--- NOTE | 2020-07-08 17:21 | ER ---
Nurse's Notes [facility] Name: Anita Harp Age: 70 yrs Sex: Female : 1950 Arrival Date: 07/08/2020 Time: 14:38 Bed 3 Private MD: Diagnosis: Hypotension-RESOLVED/IMPROVED;Low back pain-CHRONIC;Obesity, unspecified;Type 2 diabetes mellitus;Weakness;Urinary tract infection, site not specified;Anemia, unspecified Presentation: 07/08 14:38 Chief complaint: EMS states: PT attempted exercises with patient but pt could not do aa5 them due to lower back pain. EMS also pt c/o drowsiness and is normally more alert. Pt currently c/o generalized weakness and low back pain. EMS reports BP was 100/70 upon scene arrival. 14:38 Ebola Screen: Patient negative for fever greater than or equal to 101.5 degrees aa5 Fahrenheit, and additional compatible Ebola Virus Disease symptoms. Initial Sepsis Screen: Does the patient meet any 2 criteria? Systolic BP < 90 mmHg. HR > 90 bpm. Yes Does the patient have a suspected source of infection? No. Patient's initial sepsis screen is negative. Risk Assessment: Do you want to hurt yourself or someone else? Patient reports no desire to harm self or others. Onset of symptoms was July 08, 2020. Care prior to arrival: Glucose check: 147. 14:38 Method Of Arrival: EMS: [facility] aa5 14:38 Acuity: DENTON 2 aa5 14:38 Coronavirus screen: At this time, the client does not indicate any symptoms associated aa5 with coronavirus-19. Historical: - Allergies: 14:43 Aspirin; aa5 14:43 Ibuprofen; aa5 14:43 PENICILLINS; aa5 - PMHx: 14:43 Anxiety; CHF; claustrophobia; COPD; Diabetes - NIDDM; Panic Attacks; Rheumatoid aa5 Arthritis; - Immunization history:: Adult Immunizations unknown. - Social history:: Smoking status: Patient/guardian denies using tobacco. Screenin:45 Abuse screen: Denies threats or abuse. Nutritional screening: No deficits noted. aa5 Tuberculosis screening: No symptoms or risk factors identified. Fall Risk IV access (20 points). Mental Status- Overestimates/Forgets Limitations (15 pts.). Total Hernández Fall Scale indicates Low Risk Score (25-44 pts). Fall prevention measures have been instituted. Side Rails Up X 2 Placed close to Nursing Station. Assessment: 14:40 General: Appears comfortable, Behavior is calm, cooperative. Pain: Complains of pain in aa5 back Unable to use pain scale. Does not appear to understand pain scale. Neuro: Level of Consciousness is obeys commands, confused, Oriented to person, place, Brand Marketing Specialist are weak bilaterally Moves all extremities. Speech is normal, Facial symmetry appears normal, Reports generalized weakness and feeling drowsy . Cardiovascular: Heart tones S1 S2 present edema noted to elizabeth ankles Rhythm is regular. Respiratory: Airway is patent Respiratory effort is even, unlabored, relaxed, Respiratory pattern is regular, symmetrical, Breath sounds are clear bilaterally. Denies cough, shortness of breath. GI: Abdomen is round non-distended, PEG tube Site clean. Bowel sounds present X 4 quads. Abd is soft and non tender X 4 quads. : [place] in place to gravity drainage. EENT: No signs and/or symptoms were reported regarding the EENT system. Derm: Skin is dry, Skin is normal, Skin temperature is warm. Musculoskeletal: Range of motion: intact in all extremities. 15:20 Reassessment: Pt resting in bed with eyes closed, respirations even and unlabored, skin aa5 is normal/warm/dry. Pt easy to arouse to verbal stimuli. . 16:30 Reassessment: Pt resting in bed with eyes closed, respirations even and relaxed, skin aa5 is normal/warm/dry. Pt easy to arouse to verbal stimuli, pt currently oriented x person,place, and situation. Extra warm blankets provided for comfort. . 17:30 Reassessment: Pt back from CT scan . aa5 17:30 Neuro: Level of Consciousness is awake, alert, obeys commands, Oriented to person, aa5 place, situation. Cardiovascular: Rhythm is sinus rhythm. Respiratory: Airway is patent Respiratory effort is even, unlabored, Respiratory pattern is regular, symmetrical. Respiratory: Airway is patent Respiratory effort is even, unlabored, Respiratory pattern is regular, symmetrical. Derm: Skin is dry, Skin is normal, Skin temperature is warm. 18:30 Reassessment: Torsten Grant NP (hospitalist) at bedside . aa5 18:45 Reassessment: x-ray at bedside . aa5 18:50 Neuro: Level of Consciousness is awake, alert, obeys commands, Oriented to person, aa5 place, situation. Respiratory: Airway is patent Respiratory effort is even, unlabored, Respiratory pattern is regular, symmetrical. Derm: Skin is dry, Skin is normal, Skin temperature is warm. Vital Signs: 14:38 BP 89 / 47; Pulse 95; Resp 16 S; Temp 98.0(TE); Pulse Ox 100% on R/A; aa5 14:50 BP 79 / 54; Pulse 96; Resp 16 S; Pulse Ox 100% on R/A; aa5 15:00 BP 81 / 56; Pulse 96; Resp 14 S; Pulse Ox 100% on R/A; aa5 15:10 BP 77 / 42; Pulse 96; Resp 16 S; Pulse Ox 100% on R/A; aa5 15:25 BP 86 / 34; Pulse 97; Resp 16 S; Pulse Ox 100% on R/A; aa5 15:40 BP 102 / 55; Pulse 95; Resp 16 S; Pulse Ox 100% on R/A; aa5 15:50 BP 106 / 45; Pulse 97; Resp 16 S; Pulse Ox 100% on R/A; aa5 16:00 BP 102 / 55; Pulse 99; Resp 16 S; Pulse Ox 100% on R/A; aa5 17:00 BP 126 / 76; Pulse 102; Resp 14 S; Pulse Ox 100% on R/A; aa5 17:40 BP 128 / 61; Pulse 103; Resp 16 S; Pulse Ox 100% on R/A; aa5 18:00 BP 109 / 70; Pulse 97; Resp 14 S; Pulse Ox 100% on R/A; aa5 18:40 BP 125 / 61; Pulse 103; Resp 16 S; Pulse Ox 100% on R/A; aa5 ED Course: 14:38 Patient arrived in ED. em1 14:38 Elvi Bee, RN is Primary Nurse. aa5 14:38 Arm band placed on. aa5 14:38 Patient has correct armband on for positive identification. Bed in low position. Call aa5 light in reach. Side rails up X2. pvc monitor on. Pulse ox on. NIBP on. 14:41 Triage completed. aa5 14:55 Inserted saline lock: 20 gauge in left wrist, using aseptic technique. Blood collected. aa5 14:55 Initial lab(s) drawn, by me, sent to lab. First set of blood cultures drawn by me. aa5 15:10 Second set of blood cultures drawn by me. aa5 15:18 Brennan Adams MD is Attending Physician. werner 15:26 Chest Single View XRAY In Process Unspecified. EDMS 17:18 Rolf Banuelos DO is Hospitalizing Provider. werner 17:21 CT Chest, Abdomen, Pelvis - W/Contrast In Process Unspecified. EDMS 19:00 Report given to Deepa RN, Oswaldo, RN, and CHRISTOPH Dye. aa5 19:00 No provider procedures requiring assistance completed. Patient admitted, IV remains in aa5 place. 19:04 Abdomen 1 View (KUB) XRAY In Process Unspecified. EDMS Administered Medications: 15:25 Drug: NS 0.9% 500 ml Route: IV; Rate: bolus; Site: left wrist; aa5 16:00 Follow up: IV Status: Completed infusion; IV Intake: 500ml aa5 15:25 Drug: NS 0.9% 1000 ml Route: IV; Rate: 125 ml/hr; Site: left wrist; aa5 18:58 Follow up: IV Status: Infusion continued aa5 17:30 Drug: Pepcid (famotidine) 20 mg Route: IVP; Site: left wrist; aa5 17:40 Follow up: Response: No adverse reaction aa5 18:50 Drug: Meropenem 1 grams Route: IV; Rate: per protocol; Site: left wrist; aa5 Intake: 16:00 IV: 500ml; Total: 500ml. aa5 Outcome: 17:20 Decision to Hospitalize by Provider. werner 22:04 Patient left the ED. mg2 Signatures: Dispatcher [employer] EDRI Brennan Adams MD MD cha Martinez, Eric em1 Elvi Bee RN RN aa5 Oswaldo Perez RN RN mg2 Corrections: (The following items were deleted from the chart) 14:43 14:38 Chief complaint: EMS states: PT attempted exercises with patient but pt could not aa5 do them due to lower back pain. EMS also pt c/o drowsiness and is normally more alert. Pt currently c/o generalized weakness and low back pain. aa5 14:43 14:38 Acuity: DENTON 3 aa5 aa5 14:44 14:38 Initial Sepsis Screen: Does the patient meet any 2 criteria? No. Patient's aa5 initial sepsis screen is negative. Does the patient have a suspected source of infection? No. Patient's initial sepsis screen is negative. aa5 14:38 Pulse 95bpm; Resp 16bpm; Spontaneous; Pulse Ox 100% RA; Temp 98.0F Temporal; aa5 aa5
--- NOTE | 2020-07-08 17:22 | EDPHYS ---
Physician Documentation [facility] Name: Anita Harp Age: 70 yrs Sex: Female : 1950 Arrival Date: 07/08/2020 Time: 14:38 Bed 3 Private MD: ED Physician Brennan Adams HPI: 07/08 16:42 This 70 yrs old Black Female presents to ER via EMS with complaints of Back Pain, werner General Weakness. 16:42 The patient presents with pain that is chronic. werner Historical: - Allergies: 14:43 Aspirin; aa5 14:43 Ibuprofen; aa5 14:43 PENICILLINS; aa5 - PMHx: 14:43 Anxiety; CHF; claustrophobia; COPD; Diabetes - NIDDM; Panic Attacks; Rheumatoid aa5 Arthritis; - Immunization history:: Adult Immunizations unknown. - Social history:: Smoking status: Patient/guardian denies using tobacco. ROS: 16:47 Constitutional: Negative for fever, chills, and weight loss, Eyes: Negative for injury, werner pain, redness, and discharge, ENT: Negative for injury, pain, and discharge, Neck: Negative for injury, pain, and swelling, Cardiovascular: Negative for chest pain, palpitations, and edema, Respiratory: Negative for shortness of breath, cough, wheezing, and pleuritic chest pain, : Negative for injury, bleeding, discharge, and swelling, MS/Extremity: Negative for injury and deformity, Skin: Negative for injury, rash, and discoloration, Neuro: Negative for headache, weakness, numbness, tingling, and seizure, Psych: Negative for depression, anxiety, suicide ideation, homicidal ideation, and hallucinations, Allergy/Immunology: Negative for hives, rash, and allergies, Endocrine: Negative for neck swelling, polydipsia, polyuria, polyphagia, and marked weight changes, Hematologic/Lymphatic: Negative for swollen nodes, abnormal bleeding, and unusual bruising. 16:47 Abdomen/GI: Positive for abdominal pain, abdominal cramps, abdominal distension, of the right upper quadrant, left upper quadrant, right lower quadrant and left lower quadrant, PEG AND ALCANTAR. Exam: 16:47 Constitutional: This is a well developed, well nourished patient who is awake, alert, werner and in no acute distress. Head/Face: Normocephalic, atraumatic. Eyes: Pupils equal round and reactive to light, extra-ocular motions intact. Lids and lashes normal. Conjunctiva and sclera are non-icteric and not injected. Cornea within normal limits. Periorbital areas with no swelling, redness, or edema. ENT: Nares patent. No nasal discharge, no septal abnormalities noted. Tympanic membranes are normal and external auditory canals are clear. Oropharynx with no redness, swelling, or masses, exudates, or evidence of obstruction, uvula midline. Mucous membranes moist. Neck: Trachea midline, no thyromegaly or masses palpated, and no cervical lymphadenopathy. Supple, full range of motion without nuchal rigidity, or vertebral point tenderness. No Meningismus. Chest/axilla: Normal chest wall appearance and motion. Nontender with no deformity. No lesions are appreciated. Cardiovascular: Regular rate and rhythm with a normal S1 and S2. No gallops, murmurs, or rubs. Normal PMI, no JVD. No pulse deficits. Respiratory: Lungs have equal breath sounds bilaterally, clear to auscultation and percussion. No rales, rhonchi or wheezes noted. No increased work of breathing, no retractions or nasal flaring. Back: No spinal tenderness. No costovertebral tenderness. Full range of motion. Female : Normal external genitalia. Skin: Warm, dry with normal turgor. Normal color with no rashes, no lesions, and no evidence of cellulitis. MS/ Extremity: Pulses equal, no cyanosis. Neurovascular intact. Full, normal range of motion. Neuro: Awake and alert, GCS 15, oriented to person, place, time, and situation. Cranial nerves II-XII grossly intact. Motor strength 5/5 in all extremities. Sensory grossly intact. Cerebellar exam normal. Normal gait. Psych: Awake, alert, with orientation to person, place and time. Behavior, mood, and affect are within normal limits. 16:47 Abdomen/GI: Inspection: distension, Bowel sounds: normal, Palpation: mild abdominal tenderness, in all quadrants, Liver: no appreciated palpable abnormalities, Hernia: not appreciated. Vital Signs: 14:38 BP 89 / 47; Pulse 95; Resp 16 S; Temp 98.0(TE); Pulse Ox 100% on R/A; aa5 14:50 BP 79 / 54; Pulse 96; Resp 16 S; Pulse Ox 100% on R/A; aa5 15:00 BP 81 / 56; Pulse 96; Resp 14 S; Pulse Ox 100% on R/A; aa5 15:10 BP 77 / 42; Pulse 96; Resp 16 S; Pulse Ox 100% on R/A; aa5 15:25 BP 86 / 34; Pulse 97; Resp 16 S; Pulse Ox 100% on R/A; aa5 15:40 BP 102 / 55; Pulse 95; Resp 16 S; Pulse Ox 100% on R/A; aa5 15:50 BP 106 / 45; Pulse 97; Resp 16 S; Pulse Ox 100% on R/A; aa5 16:00 BP 102 / 55; Pulse 99; Resp 16 S; Pulse Ox 100% on R/A; aa5 17:00 BP 126 / 76; Pulse 102; Resp 14 S; Pulse Ox 100% on R/A; aa5 17:40 BP 128 / 61; Pulse 103; Resp 16 S; Pulse Ox 100% on R/A; aa5 18:00 BP 109 / 70; Pulse 97; Resp 14 S; Pulse Ox 100% on R/A; aa5 18:40 BP 125 / 61; Pulse 103; Resp 16 S; Pulse Ox 100% on R/A; aa5 MDM: 15:21 Patient medically screened. werner 16:52 Differential diagnosis: chronic back pain, Obesity Peptic Ulcer Renal Infarction werner ruptured disc, Scoliosis Ureterolithiasis cholecystitis, Cholelithiasis, diverticulitis, Irritable bowel syndrome, pancreatitis, Peptic Ulcer Disease, urinary tract infection. Data reviewed: vital signs, nurses notes, lab test result(s), EKG, radiologic studies, CT scan, plain films. Data interpreted: bus driver/monitor: rate is 97 beats/min, rhythm is regular, Pulse oximetry: on room air is 100 %. Test interpretation: by ED physician or midlevel provider: ECG, plain radiologic studies. Counseling: I had a detailed discussion with the patient and/or guardian regarding: the historical points, exam findings, and any diagnostic results supporting the discharge/admit diagnosis, lab results, radiology results, the need for further work-up and treatment in the hospital. 07/08 14:55 Order name: Amylase, Serum iw 07/08 14:55 Order name: Basic Metabolic Panel iw 07/08 14:55 Order name: Blood Culture Adult (2) iw 07/08 14:55 Order name: CBC with Diff 07/08 14:55 Order name: Ckmb 07/08 14:55 Order name: CPK 07/08 14:55 Order name: Lactate; Complete Time: 16:34 07/08 14:55 Order name: LFT's; Complete Time: 16:34 07/08 14:55 Order name: Lipase; Complete Time: 16:34 07/08 14:55 Order name: Procalcitonin; Complete Time: 16:34 07/08 14:55 Order name: Protime (+inr); Complete Time: 16:34 07/08 14:55 Order name: Ptt, Activated; Complete Time: 16:34 07/08 14:55 Order name: Troponin (emerg Dept Use Only); Complete Time: 16:34 07/08 14:55 Order name: Chest Single View XRAY; Complete Time: 16:34 07/08 14:56 Order name: Amylase; Complete Time: 16:34 [facility] 07/08 14:56 Order name: Basic Metabolic Panel; Complete Time: 16:34 [facility] 07/08 14:56 Order name: Blood Culture [facility] 07/08 14:56 Order name: CBC with Automated Diff; Complete Time: 15:18 [facility] 07/08 14:56 Order name: CKMB Creatine Kinase MB; Complete Time: 16:34 [facility] 07/08 14:56 Order name: Creatine Phosphokinase; Complete Time: 16:34 [facility] 07/08 15:19 Order name: Type And Screen; Complete Time: 17:16 [facility] 07/08 15:22 Order name: Glucose, Ancillary Testing; Complete Time: 16:34 [facility] 07/08 16:36 Order name: CT Chest, Abdomen, Pelvis - W/Contrast; Complete Time: 18:18 [facility] 07/08 17:03 Order name: COVID-19 : Document "Date of Symptom Onset" if Symptomatic. [facility] 07/08 17:12 Order name: UA; Complete Time: 17:45 [facility] 07/08 17:36 Order name: Urine Microscopic Only; Complete Time: 17:45 [facility] 07/08 17:45 Order name: Urine Culture [facility] 07/08 19:56 Order name: SARS-COV-2 RT PCR [facility] 07/08 14:55 Order name: Accucheck; Complete Time: 15:31 07/08 14:55 Order name: Cardiac monitoring; Complete Time: 14:58 07/08 14:55 Order name: EKG - Nurse/Tech; Complete Time: 15:22 07/08 14:55 Order name: IV Saline Lock - Large Bore; Complete Time: 14:58 07/08 14:55 Order name: Labs collected and sent; Complete Time: 14:58 07/08 14:55 Order name: O2 Per Protocol; Complete Time: 14:58 07/08 14:55 Order name: O2 Sat Monitoring; Complete Time: 14:58 07/08 14:55 Order name: Urine Dipstick-Ancillary (obtain specimen); Complete Time: 16:55 07/08 18:19 Order name: Abdomen 1 View (KUB) CHELSY werner Administered Medications: 15:25 Drug: NS 0.9% 500 ml Route: IV; Rate: bolus; Site: left wrist; aa5 16:00 Follow up: IV Status: Completed infusion; IV Intake: 500ml aa5 15:25 Drug: NS 0.9% 1000 ml Route: IV; Rate: 125 ml/hr; Site: left wrist; aa5 18:58 Follow up: IV Status: Infusion continued aa5 17:30 Drug: Pepcid (famotidine) 20 mg Route: IVP; Site: left wrist; aa5 17:40 Follow up: Response: No adverse reaction aa5 18:50 Drug: Meropenem 1 grams Route: IV; Rate: per protocol; Site: left wrist; aa5 Disposition: 07/08/20 17:20 Hospitalization ordered by Rolf Banuelos for Observation. Preliminary diagnosis are Hypotension - RESOLVED/IMPROVED, Low back pain - CHRONIC, Obesity, unspecified, Type 2 diabetes mellitus, Weakness, Urinary tract infection, site not specified, Anemia, unspecified. - Bed requested for Telemetry/MedSurg (observation). - Status is Observation. mg2 - Condition is Fair. - Problem is new. - Symptoms have improved. Signatures: Dispatcher [employer] EDMS Huyen Aranda Martha, RN RN mw Anderson, Corey, MD MD cha Williams, Irene, RN RN Elvi Bee RN CHRISTOPH aa5 Torsten Grant, COMMUNITY RELATIONS OFFICER-C COMMUNITY RELATIONS OFFICER-Cla1 Oswaldo Perez, RN RN mg2 Corrections: (The following items were deleted from the chart) 17:36 14:56 UA MICROSCOPIC+U.LAB.BRZ ordered. EDOR EDMS 18:19 17:20 Hospitalization Ordered by Rolf Lakisha SHEPARD for Observation. Preliminary werner diagnosis is Hypotension - RESOLVED/IMPROVED; Low back pain - CHRONIC; Obesity, unspecified; Type 2 diabetes mellitus; Weakness. Bed requested for Telemetry/MedSurg (observation). Status is Observation. Condition is Fair. Problem is new. Symptoms have improved. werner 18:23 18:19 07/08/2020 17:20 [facility] bd Preliminary diagnosis is Hypotension - RESOLVED/IMPROVED; Low back pain - CHRONIC; Obesity, unspecified; Type 2 diabetes mellitus; Weakness; Urinary tract infection, site not specified; Anemia, unspecified. Bed requested for Telemetry/MedSurg (observation). Status is Observation. Condition is Fair. Problem is new. Symptoms have improved. werner 19:11 17:04 CORONAVIRUS ordered. EDOR EDMS 21:14 18:23 07/08/2020 17:20 Hospitalization Ordered by [place] Lakisha SHEPARD for Observation. mw Preliminary diagnosis is Hypotension - RESOLVED/IMPROVED; Low back pain - CHRONIC; Obesity, unspecified; Type 2 diabetes mellitus; Weakness; Urinary tract infection, site not specified; Anemia, unspecified. Bed requested for [facility] ER HOLD. Status is Observation. Condition is Fair. Problem is new. Symptoms have improved. bd 22:04 21:14 07/08/2020 17:20 Hospitalization Ordered by [place] Lakisha SHEPARD for Observation. mg2 Preliminary diagnosis is Hypotension - RESOLVED/IMPROVED; Low back pain - CHRONIC; Obesity, unspecified; Type 2 diabetes mellitus; Weakness; Urinary tract infection, site not specified; Anemia, unspecified. Bed requested for Telemetry/MedSurg (observation). Status is Observation. Condition is Fair. Problem is new. Symptoms have improved. mw
[2020-07-08 17:23] LABS: Urine Appearance TURBID (Clear); Urine Bilirubin NEGATIVE (Negataive); Urine Blood 2+ (Negative); Urine Color YELLOW (Yellow); Urine Glucose NEGATIVE (Negative); Urine Protein TRACE (Negative); Urine Specific Gravity <=1.005 (1.005-1.030); Urine pH 7.5 (5.0-7.0)
[2020-07-08 17:34] LABS: Urine Microscopic Reflex ORDER UMIC
[2020-07-08 17:44] LABS: Urine Amorphous Sediment 1+ /HPF (NONE SEEN); Urine Bacteria 20-50 /HPF (<20); Urine Mucus 2+ /HPF (NONE SEEN)
--- NOTE | 2020-07-08 17:46 | RAD REPORT ---
EXAM DESCRIPTION: CT - Chest Abdomen Pelvis W Cont - 07/08/2020 5:21 pm CLINICAL HISTORY: ABDOMINAL DISTENTION, back pain, weakness, history of COPD and CHF COMPARISON: Chest Single View dated 07/08/2020; Abdomen Pelvis Wo Contrast dated 05/31/2020 TECHNIQUE: Following dynamic enhancement using 100 milliliters nonionic IV contrast, axial imaging o f the chest, abdomen and pelvis was performed. Biphasic technique was utilized through the abdomen. No oral contrast administered. All CT scans are performed using dose optimization technique as appropriate and may include automated exposure control or mA/KV adjustment according to patient size. FINDINGS: Atelectasis changes seen in the left lung field. No acute lung parenchymal process. No ple ural effusion, pleural thickening or pneumothorax. No significant aortic or pulmonary arterial tree f inding. Mediastinal and hilar regions show no mass or abnormal lymphadenopathy. No chest wall mass or abnormal axillary lymphadenopathy. Defibrillator is in place. Liver and spleen show no suspicious findings. No mass of the pancreatic parenchyma is identifiable. T here is trace amount of stranding along the anterior left renal fascia. No stranding immediately mata cent to the pancreatic tail. Acute pancreatitis is doubtful but can be correlated with any supporting laboratory finding. Gallbladder is absent. No biliary tree dilatation. Renal function is symmetric. No pyelonephritis or acute renal parenchymal mass lesions seen. Stent is present left. There minimal dilatation of the pelvis and calices of the left kidney. The patient engle s appear to have a duplicated left collecting system down to the level of the bladder. The non stente d ureter is not abnormally dilated. No adrenal abnormalities. Fibroid uterus is present without evid ence for an acute finding. Urinary bladder is mostly contracted around a Rome catheter. Air within t he bladder lumen is probably from catheter placement. PEG tube is in place. No acute gastric finding. No small bowel abnormality. Moderately large stool vo lume distends the rectum and distal sigmoid colon. No mass lesion identified. No acute GI findings se en. No free air, free fluid or pneumatosis. No acute or destructive bony process. Advanced disc and bony degenerative changes are present. No significant vascular findings. IMPRESSION: CT chest imaging shows minimal atelectasis with no acute finding. Left ureteral stent has been placed since the May 31 examination. Patient has duplicated left collec ting system. The non stented ureter is not dilated. There is trace amount of stranding along the left anterior renal fascia. This is probably reactive ch jan related to the ureteral stent rather than stranding related to pancreatitis. The fat immediately adjacent to the pancreatic tail is unremarkable. Prominent stool distending but not dilating the rectum and distal sigmoid colon.
[2020-07-08] MEDS ORDERED: FAMOTIDINE 20 MG/2 ML VIAL IV ONE (17:53)
[2020-07-08] MEDS ORDERED: Meropenem 1 GM/100 ML BAG ONE (19:08)
[2020-07-08] MEDS ORDERED: TRAMADOL HCL 50 MG TAB PO PRN (19:13)
[2020-07-08] MEDS ORDERED: ACETAMINOPHEN 500 MG TAB PO PRN (19:13)
--- NOTE | 2020-07-08 19:27 | RAD REPORT ---
EXAM DESCRIPTION: RAD - Abdomen 1 View (KUB) - 07/08/2020 7:04 pm CLINICAL HISTORY: Abd pain;Flank pain COMPARISON: Abdomen 1 View (KUB) dated 07/21/2019; Abdomen 1 View (KUB) dated 07/21/2019; Chest Abdome n Pelvis W Cont dated 07/08/2020 FINDINGS: Exam has significant motion degradation limitation. No feeding tube is identifiable. Defib rillator lead is seen. Patient has a stent in the left collecting system. No suspicious calcification s present. Multiple prominent air-filled bowel loops are present. This is not abnormally dilated angel l. PEG tube is seen. Right upper quadrant surgical clips present. IMPRESSION: Prominent but nondilated small bowel loops pattern. No free air or pneumatosis. Exam is significantly limited due to the severity of respiratory motion.
--- NOTE | 2020-07-08 20:24 | P.HP ---
Certification for Inpatient Patient admitted to: Inpatient With expected LOS: >2 Midnights Patient will require the following post-hospital care: None Practitioner: I am a practitioner with admitting privileges, knowledge of patient current condition, hospital course, and medical plan of care. Services: Services provided to patient in accordance with Admission requirements found in Title 42 Section 412.3 of the Code of Federal Regulations Patient History Date of Service: 07/08/20 Reason for admission: UTI, hypotension, weakness History of Present Illness: 70-year-old female with history of CHF, COPD, diabetes mellitus type 2, rheumatoid arthritis presents emergency department for weakness, hypotension. Patient was transferred from our facility to [facility] on May 31 for infected kidney stone, patient has since had ureteral stenting, placement of PEG tube for nutritional purposes, has indwelling Rome catheter. Patient's blood pressure was initially low around 80s over 40s, patient was evaluated in the emergency department found to have mildly elevated white blood cell count 12.9 hemoglobin 8.7 hematocrit 26.7 pro calcitonin mildly elevated 0.28 urine significant for greater than 50 white blood cells 20-50 bacteria 3+ leuk esterase on urinalysis. CT chest abdomen pelvis significant for left ureteral stent been placed, patient noted to have duplicated left collecting system, the nondistended urinary is not dilated, and trace stranding along left anterior renal fascia which is likely reactive change related to the ureteral stent rather than stranding related pancreatitis. Lipase normal. ED provider wishes to admit for further evaluation and management of hypotension/weakness/UTI. Allergies aspirin Allergy (Mild, Verified 02/03/13 23:31) Hives Penicillins Allergy (Mild, Verified 02/03/13 23:30) Hives ibuprofen Allergy (Verified 06/17/19 04:53) Unknown Home Medications: Albuterol Sulfate [Proair Hfa] 90 mcg IH Q4HR 02/04/13 Venlafaxine HCl [Effexor XR] 150 mg PO DAILY 02/04/13 Liraglutide [Victoza 2-Walker] 1.8 mg SQ DAILY 01/30/14 Fluticasone/Salmeterol [Advair 500/50 Diskus*] 1 puff IH BID #1 disk 02/02/14 traMADol HCL [Ultram*] 50 mg PO BIDP PRN 06/20/19 Calcitrol [Rocaltrol*] 0.5 mcg PO DAILY #30 cap 06/27/19 Calcium Carbonate [Oscal*] 1,000 mg PO TID #90 tab 06/27/19 Cholestyramine/Asp [Questran Light*] 4 gm PO BIDWM #60 packet 06/27/19 Magnesium Oxide [Mag 0X*] 400 mg PO BID #60 tab 06/27/19 Simethicone [Mylicon*] 80 mg PO TID #90 tab 06/27/19 Ondansetron HCl 4 mg PO Q6HP PRN 07/19/19 Thiamine HCl [Vitamin B-1] 100 mg PO DAILY 07/19/19 carvediloL [Carvedilol] 12.5 mg PO BID 07/19/19 Cholestyramine/Asp [Questran Light*] 4 gm PO BIDWM packet 07/25/19 Famotidine [Pepcid*] 20 mg IV BID vial 07/25/19 Insulin -Regular Human [Novolin -R*] See Protocol SQ Q6H ml 07/25/19 - Past Medical/Surgical History Diabetic: Yes -: Diabetes mellitus type 2 -: Chronic diastolic congestive heart failure -: Hyperlipidemia -: COPD -: Pacemaker/defibrillator -: RA -: Anxiety -: claustrophobia -: HTN -: gallbladder -: partial hysterectomy -: tubal ligation Psychosocial/ Personal History: Patient currently lives at home with her daughters, has home health/physical therapy/hospital bed - Family History Mother -: Heart disease, Hypertension, Diabetes Notes: asthma - Social History Alcohol use: No CD- Drugs: No Caffeine use: Yes Review of Systems 10-point ROS is otherwise unremarkable General: Weakness, Malaise Gastrointestinal: Abdominal Pain Physical Examination - Physical Exam General: Alert, Oriented x2 HEENT: Atraumatic, Other (Mucous membranes dry) Neck: Supple Respiratory: Diminished Cardiovascular: Normal pulses, Normal S1 S2 Capillary refill: <2 Seconds Gastrointestinal: Normal bowel sounds, Tenderness (Mild generalized abdominal tenderness) Musculoskeletal: No erythema, No tenderness, No warmth Integumentary: No tenderness/swelling, No erythema, No warmth Neurological: Normal speech, Normal strength at 5/5 x4 extr, Normal tone - Studies Laboratory Data (last 24 hrs) 07/08/20 14:55: PT 34.5 H, INR 2.97, APTT 39.8 H 07/08/20 14:55: WBC 12.90 H, Hgb 8.7 L, Hct 26.7 L, Plt Count 264 07/08/20 14:55: Sodium 133 L, Potassium 4.9, BUN 19 H, Creatinine 1.12, Glucose 123 H, Total Bilirubin 0.5, AST 11 L, ALT 8 L, Alkaline Phosphatase 76, Amylase 37, Lipase 54 L Assessment and Plan - Plan Assessment Complicated urinary tract infection complicated with recent instrumentation (left ureteral stenting S/P renal calculus) and long-term indwelling Rome catheter due to immobilization Hypotension likely secondary to dehydration and over utilization of blood pressure medication/diuretics Normocytic Anemia Chronic diastolic congestive heart failure Diabetes mellitus type 2 COPD Plan Complicated urinary tract infection complicated with recent instrumentation (left ureteral stenting S/P renal calculus) and long-term indwelling Rome catheter due to immobilization: Blood in urine cultures obtained, continue with daily labs, initiated on meropenem due to risk for ESBL and additional resistant bacterial infections given long-term indwelling catheter and recent instrumentation. Will need to wait for urine/blood cultures prior to discharge. Patient does not appear septic at this time, lactate 1.2, continue daily pro calcitonin levels as well. DVT prophylaxis Lovenox 40 mg subcutaneous once daily. No hydronephrosis/pyelonephritis noted, consult urology as necessary. Hypotension likely secondary to dehydration and over utilization of blood pressure medication/diuretics: Continue with IV fluids overnight, NS at 75 per hr. Normocytic anemia: Hemoglobin 8.7, monitor daily labs, transfuse for hemoglobin less than 7. Chronic diastolic congestive heart failure: Echo 1 year prior demonstrates normal ejection fraction, patient appears dry at this time will continue with light IV fluids overnight. Diabetes mellitus type 2: A.c. HS Accu-Cheks insulin therapy. A1c with morning lab COPD: Stable. P.r.n. meds Discharge Plan: Home Plan to discharge in: 48 Hours - Advance Directives Does patient have a Living Will: No Does patient have a Durable POA for Healthcare: No - Code Status/Comfort Care Code Status Assessed: Yes (Full code) Critical Care: No Time Spent Managing Pts Care (In Minutes): 55
[2020-07-08] MEDS ORDERED: NA CHLORIDE 0.9% 1,000 ML IV SCH (21:53)
[2020-07-08] MEDS: INSULIN -REGULAR HUMAN 50 UNIT/0.5 ML ML SQ SCH (21:53)
[2020-07-08] MEDS ORDERED: ONDANSETRON 4 MG/2 ML VIAL IV PRN (21:53)
[2020-07-08] MEDS: D5 0.45 NS 1,000 ML IV SCH (21:58)
[2020-07-08] MEDS ORDERED: D5 0.45 NS 1,000 ML IV ONE (22:17)
[2020-07-09] MEDS ORDERED: D50W 25 GM/50 ML SYRINGE IV PRN (01:27)
[2020-07-09] MEDS ORDERED: D50W 50 ML IV ONE (01:48)
[2020-07-09] MEDS ORDERED: Meropenem 1000 MG/VIAL IV SCH (03:00)
[2020-07-09 03:01] VITALS: BMI 43.2
[2020-07-09] MEDS ORDERED: Meropenem 1 GM/100 ML BAG ONE (03:57)
[2020-07-09 04:02] LABS: Absolute Lymphocytes (CBC) 1.4 K/uL (0.7-4.9); Basophils % 0.2 % (0-1.3); Hematocrit 25.6 % (36.0-45.0); Lymphocytes % 11.3 % (15.3-44.8); MPV 9.1 fL (7.6-11.3); RBC Red Blood Cell Count 2.61 M/uL (3.86-4.86)
[2020-07-09 04:17] LABS: Albumin 1.9 g/dL (3.4-5.0); Bilirubin Total 0.5 mg/dL (0.2-1.0); Magnesium 2.3 mg/dL (1.8-2.4); Potassium 4.3 mmol/L (3.5-5.1); Protein, Total 8.6 g/dL (6.4-8.2)
[2020-07-09 05:15] LABS: Blood Morphology Comment NOT SEEN (NOT SEEN); Platelet Estimate ADEQ
[2020-07-09] MEDS: INSULIN -REGULAR HUMAN 50 UNIT/0.5 ML ML SQ SCH ×4 (07:30→20:15)
[2020-07-09] MEDS ORDERED: ENOXAPARIN 40 MG/0.4 ML SQ SCH (09:00)
[2020-07-09] MEDS: Meropenem 1,000 MG in NA CHLORIDE 0.9% 100 ML IV SCH ×2 (09:16→16:02)
[2020-07-09] MEDS: D5 0.45 NS 1,000 ML IV SCH (12:57)
--- NOTE | 2020-07-09 16:04 | P.PN ---
Subjective Date of Service: 07/09/20 Chief Complaint: UTI, hypotension, weakness Subjective: Doing well Physical Examination - Vital Signs Temperature: 97.8 F Blood Pressure: 106/58 Pulse: 97 Respirations: 20 Pulse Ox (%): 99 - Studies Microbiology Data (last 24 hrs): 07/08/20 15:10 Blood - Blood Anaerobic Blood Culture - Final Assessment & Plan Discharge Plan: Home (with HH/PT) Physician Review Additional Text: Physical exam: Patient alert, cooperative. No significant distress noted Heart: Regular rate and rhythm Lungs: Clear to auscultation Abdomen: Soft nontender. PEG tube in place. Extremities: Overall stable. No significant edema. Assessment Complicated urinary tract infection complicated with recent instrumentation (left ureteral stenting S/P renal calculus) and long-term indwelling Rome catheter due to immobilization Hypotension likely secondary to dehydration and over utilization of blood pressure medication/diuretics Normocytic Anemia Chronic diastolic congestive heart failure Diabetes mellitus type 2 COPD HTN Depression Plan Complicated urinary tract infection complicated with recent instrumentation (lef t ureteral stenting S/P renal calculus) and long-term indwelling Rome catheter due to immobilization: Continue with IV antibiotic therapy. Blood, urine cultures obtained. Awaiting findings. Anticipate improvement. No hydronephrosis or pyelonephritis at this time. No need for urology. Continue IV fluids. Will monitor closely. Will adjust medication accordingly. Spoke with family about plan of care. Need to monitor nutrition closely. Anticipate improvement over the next 72 hours. Hypotension likely secondary to dehydration and over utilization of blood pressu re medication/diuretics: Continue with IV fluids overnight, NS at 75 per hr. Normocytic anemia: Hemoglobin 8.7, monitor daily labs, transfuse for hemoglobin less than 7. Will provide DVT prophlayxis. DC Eliquis. Family is unsure why she is taking medication. Chronic diastolic congestive heart failure: Echo 1 year prior demonstrates normal ejection fraction. Continue to monitor closely. Diabetes mellitus type 2: A.c. HS Accu-Cheks insulin therapy. Awaiting on A1c. Monitor closely. COPD: Stable. P.r.n. meds HTN: Continue to hold her BP medication due to low normal BP Depression: Meds reviewed. Hold Trazadone. Continue with Effexor. Time Spent Managing Pts Care (In Minutes): 55
--- NOTE | 2020-07-09 16:36 | EKG ---
Test Date: 2020-07-08 Test Time: 15:03:30 Planning Management It Specialist: NERISSA MEASUREMENT RESULTS: Intervals: Rate: 96 VA: 176 QRSD: 74 QT: 324 QTc: 409 [place]: P: 49 VA: 176 QRS: -28 T: 106 INTERPRETIVE STATEMENTS: Normal sinus rhythm ST & T wave abnormality, consider anterior ischemia Abnormal ECG Compared to ECG 05/31/2020 15:22:00 Left ventricular hypertrophy no longer present ST (T wave) deviation still present Possible ischemia still present Electronically Signed On 07-09-20 16:33:14 CDT by Dustin Sutton
[2020-07-09] MEDS: D50W 25 GM/50 ML VIAL IV PRN (20:47)
[2020-07-09] MEDS: HEPARIN 5000 UNIT/ML 1 ML VIAL SQ SCH (20:48)
[2020-07-09] MEDS ORDERED: APIXABAN 5 MG TABLET PO SCH (21:00)
[2020-07-10] MEDS: Meropenem 1,000 MG in NA CHLORIDE 0.9% 100 ML IV SCH ×3 (00:45→16:57)
[2020-07-10] MEDS: D5 0.45 NS 1,000 ML IV SCH ×2 (03:36→16:57)
[2020-07-10 04:32] LABS: Protime INR 1.74
[2020-07-10 04:44] LABS: Albumin 1.8 g/dL (3.4-5.0); Bilirubin Total 0.5 mg/dL (0.2-1.0); Magnesium 2.3 mg/dL (1.8-2.4); Potassium 4.4 mmol/L (3.5-5.1); Protein, Total 8.2 g/dL (6.4-8.2)
[2020-07-10 04:50] LABS: Absolute Lymphocytes (CBC) 1.6 K/uL (0.7-4.9); Basophils % 0.6 % (0-1.3); Hematocrit 26.2 % (36.0-45.0); Lymphocytes % 16.7 % (15.3-44.8); MPV 9.5 fL (7.6-11.3)
[2020-07-10] MEDS: D50W 25 GM/50 ML VIAL IV PRN (04:54)
[2020-07-10] MEDS: INSULIN -REGULAR HUMAN 50 UNIT/0.5 ML ML SQ SCH ×4 (07:30→20:58)
[2020-07-10] MEDS: FAMOTIDINE 20 MG/2 ML VIAL IV SCH (09:22)
[2020-07-10] MEDS: THIAMINE HCL 100 MG TABLET PO SCH (09:22)
[2020-07-10] MEDS: HEPARIN 5000 UNIT/ML 1 ML VIAL SQ SCH ×2 (09:22→20:57)
[2020-07-10] MEDS: FOLIC ACID 1 MG TABLET PO SCH (09:22)
[2020-07-10] MEDS: VENLAFAXINE HCL 150 MG PO SCH (09:23)
--- NOTE | 2020-07-10 10:56 | P.PN ---
Subjective Date of Service: 07/10/20 Chief Complaint: UTI, hypotension, weakness Subjective: Improving, Doing well Physical Examination - Vital Signs Temperature: 97.8 F Blood Pressure: 97/58 Pulse: 95 Respirations: 19 Pulse Ox (%): 99 - Studies Microbiology Data (last 24 hrs): 07/08/20 17:16 Clean Catch Urine [place] Count - Final >100,000 CFU/ML. 07/08/20 17:16 Clean Catch Urine - Final Proteus Mirabilis Esbl 07/08/20 15:10 Blood - Blood Anaerobic Blood Culture - Final Assessment & Plan Discharge Plan: Home (Home with home health) Plan to discharge in: Greater than 2 days Physician Review Additional Text: Physical exam: Patient alert, cooperative. No significant distress noted. Patient more alert today. Heart: Regular rate and rhythm Lungs: Clear to auscultation Abdomen: Soft nontender. PEG tube in place. Extremities: Overall stable. No significant edema. Assessment Complicated urinary tract infection complicated with recent instrumentation (left ureteral stenting S/P renal calculus) and long-term indwelling Rome catheter due to immobilization, urine culture positive for ProteusESBL Hypotension likely secondary to dehydration and over utilization of blood pressure medication/diuretics Normocytic Anemia Chronic diastolic congestive heart failure Diabetes mellitus type 2 with hypoglycemia COPD HTN Depression Plan Complicated urinary tract infection complicated with recent instrumentation (left ureteral stenting S/P renal calculus) and long-term indwelling Rome catheter due to immobilization, urine culture positive for ProteusESBL: Patient currently on IV antibiotic therapymeropenem. Patient doing well. Urine culture was positive for ProteusESBL. Patient will likely require long-term IV antibiotic therapy. Will order PICC line in anticipation for this. Will consult infectious disease as well to make recommendations. Will discuss with urology about the possibility of 2 weeks of treatment. Will need to discuss with patient and family on where this will occur. Patient desires to go home. Patient appears to have all essential needs at home. Will discuss with family and social worker aide. Will have physical therapy assess ambulation. Family also concerned about her nutritional intake. We will have dietary address her daily needs and treat. Anticipate continued improvement over the next 24 to 48 hours with likely discharge home. Hypotension likely secondary to dehydration and over utilization of blood pressure medication/diuretics: Continue IV fluids. Anticipate discontinuing IV fluids once good oral intake is noted. Normocytic anemia: Hemoglobin 8.7, monitor daily labs, transfuse for hemoglobin less than 7. Will provide DVT prophlayxis. FAMILIA Cancino. Family is unsure why she is taking medication. Chronic diastolic congestive heart failure: Echo 1 year prior demonstrates normal ejection fraction. Continue to monitor closely. Patient off Lasix at this time. Diabetes mellitus type 2 with hypoglycemia: Continue to encourage oral intake. Dietary to assess daily needs. Will check A1c. No need for therapy at this time. Continue Trulicity. COPD: We will provide medication HTN: Continue to hold blood pressure medicationscarvedilol and losartan. Patient also previously on Lasix for CHF will discontinue this. Depression: Meds reviewed. Hold Trazadone. Continue with Effexor. Time Spent Managing Pts Care (In Minutes): 55
--- NOTE | 2020-07-10 13:07 | CON ---
History Of Present Illness: The patient is known to me from previous admission. The patient is here for urinary tract infection. I was consulted to manage the antibiotic treatment. The patient has s ignificant past medical history of congestive heart failure with edematous changes to the lower extre mity, COPD, diabetes mellitus type 2, rheumatoid arthritis. The patient came to the emergency room w ith hypertension and weakness. The patient has significant history of a stent placement to the urete r for stones for kidney stones at [facility] in [facility] area. The patient also had PEG tube placement for nutritional support. The patient denies any headache, nausea, vomiting, chest pa in, abdominal pain, constipation, or diarrhea. Past Medical History: Includes diabetes mellitus, chronic diastolic congestive heart failure, hyperl ipidemia, COPD, pacemaker, defibrillator, rheumatoid arthritis, anxiety, claustrophobias, hypertensio n, gallbladder surgery, partial hysterectomy, tubal ligation, PEG tube placement, stent placement. Social History: Nonsmoker, nondrinker. Family History: Noncontributory. Medications: The patient is currently being treated with meropenem for Proteus mirabilis ESBL in the urine. Review of Systems: A 10-point review was performed. Physical Examination: General: This is a 70-year-old female, lying in bed, not in any acute cardiopulmonary distress. Vital Signs: Temperature 97.8, pulse 95, respirations 19, blood pressure 97/58. HEENT: Unremarkable. Neck: Supple. Lungs: Basal crackles. Heart: S1, S2. Regular. Abdomen: Soft. Bowel sounds present. Obese. Extremity: Trace edema. Laboratory Data: Shows WBC 9.7 down from 12.9, hemoglobin 8.8, platelets are 224. Chemistry shows s odium 142, potassium 4.4, chloride 107, bicarb 22, BUN 12, creatinine 0.9, glucose is 64. Her albumi n level is 1.8. Micro data shows Proteus mirabilis in urine more than 100,000, sensitive to meropene m, resistant to Macrobid. Assessment And Plan: Urosepsis with leukocytosis which is improving. We will recommend to switch th e patient to Invanz on discharge to home for total of 2 weeks treatment. Anemia of chronic disease, congestive heart failure, status post stent placement for the kidney stones. Continue supportive car e and monitor for signs of infection. Thank you Dr. Banuelos for consult. BRANDY/NATE Voice ID: [id number] Report ID: [id number]
--- NOTE | 2020-07-10 16:07 | RAD REPORT ---
EXAM DESCRIPTION: RAD - Chest Single View - 07/10/2020 3:59 pm CLINICAL HISTORY: Device placement PICC line placement . IMPRESSION: PICC line with its tip at the junction of the superior vena cava/atrium
[2020-07-10] MEDS: GLUCERNA 1.5 CAL 1,000 ML BOT FT SCH ×2 (17:00→20:57)
[2020-07-11] MEDS: Meropenem 1,000 MG in NA CHLORIDE 0.9% 100 ML IV SCH ×3 (00:52→16:33)
[2020-07-11] MEDS: D5 0.45 NS 1,000 ML IV SCH ×2 (03:39→16:33)
[2020-07-11 05:10] LABS: Basophils % 0.6 % (0-1.3); Hematocrit 23.7 % (36.0-45.0); Lymphocytes % 21.7 % (15.3-44.8); MPV 9.1 fL (7.6-11.3); RBC Red Blood Cell Count 2.47 M/uL (3.86-4.86)
[2020-07-11 05:36] LABS: ALT/SGPT 11 U/L (12-78); AST/SGOT 15 U/L (15-37); Albumin 1.7 g/dL (3.4-5.0); Alkaline Phosphatase 78 U/L (45-117); BUN Blood Urea Nitrogen 10 mg/dL (7-18); Bicarbonate 24 mmol/L (21-32); Bilirubin Total 0.4 mg/dL (0.2-1.0); Glucose Level 79 mg/dL (74-106); Magnesium 2.1 mg/dL (1.8-2.4); Potassium 3.6 mmol/L (3.5-5.1); Protein, Total 7.4 g/dL (6.4-8.2); Sodium Level 141 mmol/L (136-145)
[2020-07-11] MEDS ORDERED: KCL 20 MEQ/100 mL IVPB 20 MEQ/100 ML BAG IV ONE (06:00)
[2020-07-11] MEDS: THIAMINE HCL 100 MG TABLET PO SCH (07:24)
[2020-07-11] MEDS: HEPARIN 5000 UNIT/ML 1 ML VIAL SQ SCH ×2 (07:24→19:51)
[2020-07-11] MEDS: VENLAFAXINE HCL 150 MG PO SCH (07:24)
[2020-07-11] MEDS: FAMOTIDINE 20 MG/2 ML VIAL IV SCH (07:24)
[2020-07-11] MEDS: FOLIC ACID 1 MG TABLET PO SCH (07:24)
[2020-07-11] MEDS: GLUCERNA 1.5 CAL 1,000 ML BOT FT SCH ×4 (07:25→21:00)
[2020-07-11] MEDS: INSULIN -REGULAR HUMAN 50 UNIT/0.5 ML ML SQ SCH ×4 (07:30→21:00)
--- NOTE | 2020-07-11 08:23 | P.PN ---
Subjective Date of Service: 07/11/20 Primary Care Provider: Dr. Galan Chief Complaint: UTI, hypotension, weakness Subjective: Improving, Doing well (Still with poor oral intake.) Physical Examination - Vital Signs Temperature: 98.1 F Blood Pressure: 112/67 Pulse: 100 Respirations: 20 Pulse Ox (%): 98 - Studies Microbiology Data (last 24 hrs): 07/08/20 17:16 Clean Catch Urine [place] Count - Final >100,000 CFU/ML. 07/08/20 17:16 Clean Catch Urine - Final Proteus Mirabilis Esbl Assessment & Plan Discharge Plan: Other (alf facility) Plan to discharge in: 24 Hours Physician Review Additional Text: Physical exam: Patient alert, cooperative. No significant distress noted. Patient more alert today. Heart: Regular rate and rhythm Lungs: Clear to auscultation Abdomen: Soft nontender. PEG tube in place. Extremities: Overall stable. No significant edema. Assessment Complicated urinary tract infection complicated with recent instrumentation (left ureteral stenting S/P renal calculus) and long-term indwelling Rome catheter due to immobilization, urine culture positive for ProteusESBL Hypotension likely secondary to dehydration and over utilization of blood pressure medication/diuretics Normocytic Anemia Chronic diastolic congestive heart failure Diabetes mellitus type 2 with hypoglycemia COPD HTN Depression Plan Complicated urinary tract infection complicated with recent instrumentation (left ureteral stenting S/P renal calculus) and long-term indwelling Rome catheter due to immobilization, urine culture positive for ProteusESBL: Patient doing well at this time. Better oral intake. Spoke at length with family about the possibility of going home with IV antibiotic therapy versus skilled placement. Family prefers patient to go to a skilled facility to continue IV antibiotic therapy as it will be difficult to take care of her at home. Will discuss with social service agency director to help arrange for skilled placement. We will discuss this in detail with the patient. There may be some resistance but this will be important for her to continue antibiotic therapy. Continue IV meropenem for a total of [address] line in place. Will have dietary address oral intake. Will need to discontinue IV fluids once good oral intake is initiated and established. We will have nurses monitor oral intake. Patient has PEG tube due to poor nutrition in the past. Anticipate discharge to skilled facility in the next 24 to 48 hours. Hypotension likely secondary to dehydration and over utilization of blood pressure medication/diuretics: We will discontinue IV fluids once good oral intake is initiated. Dietary to address daily needs. Will monitor oral intake. Normocytic anemia: Hemoglobin stable. Will monitor this closely. Patient no longer on Eliquis. Chronic diastolic congestive heart failure: Echo 1 year prior demonstrates normal ejection fraction. Continue to monitor closely. Patient off Lasix at this time. Diabetes mellitus type 2 with hypoglycemia: Hemoglobin A1c 4.8. No need for diabetic medication. Patient previously on Trulicity. This will be discontinued. COPD: We will provide medication HTN: Blood pressure stable off medication. Continue to hold blood pressure medicationscarvedilol, Lasix and losartan. Patient will likely not require any medication at discharge. Depression: Meds reviewed. Continue to hold Trazadone. Continue with Effexor. Time Spent Managing Pts Care (In Minutes): 55
[2020-07-11 12:26] LABS: Hematocrit 23.9 % (36.0-45.0)
[2020-07-11] MEDS ORDERED: LORazepam 2 MG/ML VIAL IV ONE (20:59)
[2020-07-12] MEDS: Meropenem 1,000 MG in NA CHLORIDE 0.9% 100 ML IV SCH ×3 (01:29→16:10)
[2020-07-12 04:55] LABS: Absolute Lymphocytes (CBC) 1.1 K/uL (0.7-4.9); Basophils % 0.6 % (0-1.3); Hematocrit 21.5 % (36.0-45.0); Lymphocytes % 27.8 % (15.3-44.8); MPV 8.2 fL (7.6-11.3); RBC Red Blood Cell Count 2.23 M/uL (3.86-4.86)
[2020-07-12] MEDS: D5 0.45 NS 1,000 ML IV SCH ×2 (04:58→21:51)
[2020-07-12 05:18] LABS: BUN Blood Urea Nitrogen 8 mg/dL (7-18); Bicarbonate 27 mmol/L (21-32); Glucose Level 79 mg/dL (74-106); Magnesium 1.9 mg/dL (1.8-2.4); Potassium 3.7 mmol/L (3.5-5.1); Sodium Level 142 mmol/L (136-145)
[2020-07-12] MEDS ORDERED: KCL 20 MEQ/100 mL IVPB 20 MEQ/100 ML BAG IV ONE (05:47)
[2020-07-12] MEDS ORDERED: NA CHLORIDE 0.9% 500 ML IV ONE (05:54)
[2020-07-12] MEDS ORDERED: KCL 20 MEQ/100 mL IVPB 20 MEQ/100 ML BAG IV SCH (06:00)
[2020-07-12] MEDS: VENLAFAXINE HCL 150 MG PO SCH (07:23)
[2020-07-12] MEDS: INSULIN -REGULAR HUMAN 50 UNIT/0.5 ML ML SQ SCH ×4 (07:30→21:00)
[2020-07-12] MEDS: FOLIC ACID 1 MG TABLET PO SCH (07:31)
[2020-07-12] MEDS: FAMOTIDINE 20 MG/2 ML VIAL IV SCH (07:32)
[2020-07-12] MEDS: THIAMINE HCL 100 MG TABLET PO SCH (07:32)
[2020-07-12] MEDS: GLUCERNA 1.5 CAL 1,000 ML BOT FT SCH ×2 (07:32→13:00)
[2020-07-12] MEDS ORDERED: NA CHLORIDE 0.9% 50 ML ONE (11:02)
--- NOTE | 2020-07-12 11:10 | P.PN ---
Subjective Date of Service: 07/12/20 Primary Care Provider: Dr. Galan Chief Complaint: UTI, hypotension, weakness Patient seen examined at bedside, no acute complaints at this time. Per nurse the patient has had increased confusion. Repeat delayed taken on 07/11 pending. Patient currently on meropenem. Patient continues to be hypoglycemic despite PEG tube feeding as well as p.o. intake. Patient also has significant anemia with a hemoglobin of 7.0, recommend transfusion if hemoglobin drops below 7. Also recommend ordering iron panel, patient has normocytic anemia. Review of Systems 10-point ROS is otherwise unremarkable Physical Examination - Vital Signs Temperature: 97.1 F Blood Pressure: 110/51 Pulse: 96 Respirations: 16 Pulse Ox (%): 100 - Physical Exam General: Confused HEENT: Atraumatic, Normocephalic, PERRLA Neck: Supple, 2+ carotid pulse no bruit Respiratory: Clear to auscultation bilaterally, Normal air movement Cardiovascular: Regular rate/rhythm, Normal S1 S2 Capillary refill: <2 Seconds Gastrointestinal: Normal bowel sounds, Other (PEG tube insertion site) Musculoskeletal: No clubbing, No swelling, No contractures Integumentary: No breakdown - Studies Active Medications Acetaminophen (Acetaminophen 500 Mg Tab) 500 mg PO Q6H PRN PRN Reason: Pain scale 2-4 (Mild) Dextrose (D50w 25 Gm/50 Ml Vial) 12.5 gm IV PRN PRN; Protocol PRN Reason: HYPOGLYCEMIA Last Admin: 07/10/20 04:54 Dose: 12.5 gm Documented by: Enteral Nutritional Formula (Glucerna 1.5 Edwin 1,000 Ml Bot) 237 ml FT QID [facility] Last Admin: 07/12/20 07:32 Dose: 237 ml Documented by: Famotidine (Famotidine 20 Mg/2 Ml Vial) 20 mg IV DAILY MARIAM; Protocol Last Admin: 07/12/20 07:32 Dose: 20 mg Documented by: Folic Acid (Folic Acid 1 Mg Tablet) 1 mg PO DAILY [facility] Last Admin: 07/12/20 07:31 Dose: 1 mg Documented by: Furosemide (Furosemide 20 Mg/ 2ml Vial) 20 mg IV 1X ONE Stop: 07/12/20 12:01 Heparin Sodium (Porcine) (Heparin 5000 Unit/Ml 1 Ml Vial) 5,000 unit SQ Q12HR [facility] Last Admin: 07/11/20 19:51 Dose: 5,000 unit Documented by: Home Med (Venlafaxine Hcl [Effexor Xr]) 150 mg PO DAILY [facility] Last Admin: 07/12/20 07:23 Dose: 150 mg Documented by: Dextrose/Sodium Chloride (Dextrose 5% O.45% Saline) 1,000 mls @ 75 mls/hr IV .[id number] [facility] Last Admin: 07/12/20 04:58 Dose: Not Given Documented by: Meropenem 1,000 mg/ Sodium (Chloride) 100 mls @ 100 mls/hr IV Q8HR [facility] Last Admin: 07/12/20 07:31 Dose: 100 mls Documented by: Insulin Human Regular (Insulin -Regular Human 50 Unit/0.5 Ml Ml) 0 unit SQ ACHS [facility]; Protocol Last Admin: 07/12/20 07:30 Dose: Not Given Documented by: Ondansetron HCl (Ondansetron 4 Mg/2 Ml Vial) 4 mg IV Q6HP PRN PRN Reason: NAUSEA / VOMITING Sodium Chloride (Flush Normal Saline 10 Ml) 10 ml IV BID [facility] Last Admin: 07/12/20 07:31 Dose: 10 ml Documented by: Thiamine HCl (Thiamine Hcl 100 Mg Tablet) 100 mg PO DAILY [facility] Last Admin: 07/12/20 07:32 Dose: 100 mg Documented by: Tramadol HCl (Tramadol Hcl 50 Mg Tab) 50 mg PO TID PRN PRN Reason: Pain scale 5-7 (Moderate) Last Admin: 07/11/20 19:51 Dose: 50 mg Documented by: Laboratory Last Values WBC 12.90 K/uL (4.3-10.9) H 07/08/20 14:55 RBC 2.78 M/uL (3.86-4.86) L 07/08/20 14:55 Hgb 8.7 g/dL (12.0-15.0) L 07/08/20 14:55 Hct 26.7 % (36.0-45.0) L 07/08/20 14:55 MCV 95.9 fL (80-100) 07/08/20 14:55 MCH 31.4 pg (27.0-35.0) 07/08/20 14:55 MCHC 32.8 g/dL (32.0-36.0) 07/08/20 14:55 RDW 15.1 % (12.1-15.2) 07/08/20 14:55 Plt Count 264 K/uL (152-406) 07/08/20 14:55 MPV 8.5 fL (7.6-11.3) 07/08/20 14:55 Neutrophils % 76.6 % (41.7-73.7) H 07/08/20 14:55 Lymphocytes % 11.6 % (15.3-44.8) L 07/08/20 14:55 Monocytes % 9.9 % (3.3-12.3) 07/08/20 14:55 Eosinophils % 1.4 % (0-4.4) 07/08/20 14:55 Basophils % 0.5 % (0-1.3) 07/08/20 14:55 Absolute Neutrophils 9.9 K/uL (1.8-8.0) H 07/08/20 14:55 Absolute Lymphocytes 1.5 K/uL (0.7-4.9) 07/08/20 14:55 Absolute Monocytes 1.3 K/uL (0.1-1.3) 07/08/20 14:55 Absolute Eosinophils 0.2 K/uL (0-0.5) 07/08/20 14:55 Absolute Basophils 0.1 K/uL (0-0.5) 07/08/20 14:55 PT 34.5 SECONDS (9.5-12.5) H 07/08/20 14:55 INR 2.97 07/08/20 14:55 APTT 39.8 SECONDS (24.3-36.9) H 07/08/20 14:55 Sodium 133 mmol/L (136-145) L 07/08/20 14:55 Potassium 4.9 mmol/L (3.5-5.1) 07/08/20 14:55 Chloride 106 mmol/L (98-107) 07/08/20 14:55 Carbon Dioxide 22 mmol/L (21-32) 07/08/20 14:55 BUN 19 mg/dL (7-18) H 07/08/20 14:55 Creatinine 1.12 mg/dL (0.55-1.3) 07/08/20 14:55 Estimated GFR 58 mL/min (=/>90) L 07/08/20 14:55 Glucose 123 mg/dL (74-106) H 07/08/20 14:55 POC Glucose 115 mg/dL (65-120) 07/08/20 15:09 Lactic Acid 1.2 mmol/L (0.4-2.0) 07/08/20 14:55 Calcium 8.5 mg/dL (8.5-10.1) 07/08/20 14:55 Total Bilirubin 0.5 mg/dL (0.2-1.0) 07/08/20 14:55 Direct Bilirubin 0.3 mg/dL (0-0.2) H 07/08/20 14:55 AST 11 U/L (15-37) L 07/08/20 14:55 ALT 8 U/L (12-78) L 07/08/20 14:55 Alkaline Phosphatase 76 U/L (45-117) 07/08/20 14:55 Creatine Kinase 21 U/L (26-192) L 07/08/20 14:55 CK-MB (CK-2) < 1.0 ng/mL (0.3-3.6) 07/08/20 14:55 Rapid Troponin I < 0.02 ng/mL (0.0-0.045) 07/08/20 14:55 Serum Total Protein 9.2 g/dL (6.4-8.2) H 07/08/20 14:55 Albumin 2.1 g/dL (3.4-5.0) L 07/08/20 14:55 Globulin 7.1 g/dL (2.3-3.5) H 07/08/20 14:55 Albumin/Globulin Ratio 0.3 (1.1-1.8) L 07/08/20 14:55 Amylase 37 U/L (25-115) 07/08/20 14:55 Lipase 54 U/L (73-393) L 07/08/20 14:55 Procalcitonin 0.28 ng/mL (<0.050) H 07/08/20 14:55 Urine Color Yellow (Yellow) 07/08/20 17:16 Urine Appearance Turbid (Clear) 07/08/20 17:16 Urine pH 7.5 (5.0-7.0) H 07/08/20 17:16 Ur Specific Randall <=1.005 (1.005-1.030) 07/08/20 17:16 Glucose (UA)(Auto) Negative (Negative) 07/08/20 17:16 Urine Ketones Negative (Negative) 07/08/20 17:16 Urine Blood 2+ (Negative) H 07/08/20 17:16 Urine Nitrite Negative (Negative) 07/08/20 17:16 Urine Bilirubin Negative (Negataive) 07/08/20 17:16 Urine Urobilinogen 1.0 mg/dL (0.2-1.0) 07/08/20 17:16 Ur Leukocyte Esterase 3+ (Negative) H 07/08/20 17:16 Urine RBC 5-10 /HPF (NONE SEEN) H 07/08/20 17:16 Urine WBC >50 /HPF (<5) H 07/08/20 17:16 Ur Squamous Epith Cells <5 /HPF (NONE SEEN) 07/08/20 17:16 Ur Urothelial Cells Cancelled 07/08/20 16:52 Calcium Oxalate Crystal Cancelled 07/08/20 16:52 Uric Acid Crystals Cancelled 07/08/20 16:52 Triple Phos Crystals Cancelled 07/08/20 16:52 Other Crystals Cancelled 07/08/20 16:52 Amorphous Sediment 1+ /HPF (NONE SEEN) 07/08/20 17:16 Glitter Cells Cancelled 07/08/20 16:52 Urine Bacteria 20-50 /HPF (<20) H 07/08/20 17:16 Hyaline Casts Cancelled 07/08/20 16:52 Fine Granular Casts Cancelled 07/08/20 16:52 Coarse Granular Casts Cancelled 07/08/20 16:52 Waxy Casts Cancelled 07/08/20 16:52 RBC Casts Cancelled 07/08/20 16:52 WBC Casts Cancelled 07/08/20 16:52 Urine Mucus 2+ /HPF (NONE SEEN) 07/08/20 17:16 Urine Other Cancelled 07/08/20 16:52 Urine Trichomonas Cancelled 07/08/20 16:52 Urine Yeast Cancelled 07/08/20 16:52 Ur Yeast w Hyphae Cancelled 07/08/20 16:52 Urine Yeast (Budding) Cancelled 07/08/20 16:52 Urine Sperm Cancelled 07/08/20 16:52 Urine Culture Reflexed Reflexed 07/08/20 17:16 Urine Total Volume Cancelled 07/08/20 16:52 Urine Total Protein Trace (Negative) H 07/08/20 17:16 SARS-CoV-2 RNA (RT-PCR) Negative (NEGATIVE) 07/08/20 18:53 ABO/Rh O POSITIVE 07/08/20 16:12 Solid Phase Ab Screen Negative 07/08/20 16:12 Temp Pulse Resp BP Pulse Ox 97.1 F 96 H 16 110/51 L 100 07/12/20 08:00 07/12/20 08:00 07/12/20 08:00 07/12/20 08:00 07/12/20 08:00 Assessment And Plan - Plan Antibiotics: Meropenem Start: 07/09 stop: 07/23 Assessment: 1. Urosepsis 2. Anemia of chronic disease 3. Hypoglycemia 4. Congestive heart failure 5. History of renal stone status post stent placement Plan: 1. Continue IV meropenem for duration of 2 weeks. Repeat UA taken on 07/11 pending. 2. Patient has anemia chronic disease, hemoglobin of 7.0 on 07/12. Recommend tr ansfusion at this time. Also recommend order iron studies and reticulocyte count. 3. Patient continues to have hypoglycemia despite PEG tube feeding as well as p.o. intake. Continue to monitor closely. Plan of care discussed with Dr. Chawla Thank you Dr. Banuelos for consult.
[2020-07-12] MEDS ORDERED: FUROSEMIDE 20 MG/ 2ML VIAL IV ONE (12:00)
[2020-07-12] MEDS: JEVITY 1.5 CAL LIQUID 1,000 ML BOT FT SCH ×3 (14:00→21:00)
[2020-07-12] MEDS: HEPARIN 5000 UNIT/ML 1 ML VIAL SQ SCH ×2 (14:10→21:53)
--- NOTE | 2020-07-12 16:12 | P.PN ---
Subjective Date of Service: 07/12/20 Primary Care Provider: Dr. Galan Chief Complaint: UTI, hypotension, weakness Subjective: Doing well Physical Examination - Vital Signs Temperature: 96.8 F Blood Pressure: 123/60 Pulse: 95 Respirations: 18 Pulse Ox (%): 98 Assessment & Plan Discharge Plan: Other (nursing home facility) Plan to discharge in: 72 Hours Physician Review Additional Text: Physical exam: Patient alert, cooperative. No significant distress noted. Patient more alert today. Hemoglobin low at 7.0 today. Heart: Regular rate and rhythm Lungs: Clear to auscultation Abdomen: Soft nontender. PEG tube in place. Extremities: Overall stable. No significant edema. Assessment Complicated urinary tract infection complicated with recent instrumentation (left ureteral stenting S/P renal calculus) and long-term indwelling Rome catheter due to immobilization, urine culture positive for ProteusESBL Hypotension likely secondary to dehydration and over utilization of blood pressure medication/diuretics Normocytic Anemia Speck iron deficiency anemia Chronic diastolic congestive heart failure Diabetes mellitus type 2 with hypoglycemia COPD HTN Depression Plan Complicated urinary tract infection complicated with recent instrumentation (left ureteral stenting S/P renal calculus) and long-term indwelling Rome catheter due to immobilization, urine culture positive for ProteusESBL: Patient doing well at this time. Hemoglobin 7.0. Patient with anemia likely iron deficient. Will transfuse 1 unit of blood to maintain hemoglobin above 7.0. We will need to monitor this closely. Repeat urine culture negative. Patient will continue with Merrem IV for 2 weeks. Discuss nutrition with dietary. Dietary to adjust nutrition due to hypoglycemia. We will monitor this closely with changes made by dietary. PEG tube in place. Encourage oral intake. Family discussed with patient about going to a skilled facility to continue IV antibiotic therapy and physical therapy. Patient agreed. Awaiting approval for skilled placement. Anticipate approval likely on Wednesday. PICC line in place in preparation for this. I will turn the service over to the hospitalist team tomorrow. I will go plan of care with him. Hypotension likely secondary to dehydration and over utilization of blood pre ssure medication/diuretics: Overall stable. Will discontinue IV fluids once taking good oral intake. Dietary to adjust nutrition due to hypoglycemia. Will monitor change. Normocytic anemia suspect iron deficiency anemia: Patient will receive 1 unit of packed red blood cells. Hemoglobin 7.0. Recheck hemoglobin after transfusion. Maintain hemoglobin above 7.0. Consider iron supplementation. Patient previously on Eliquis. Unknown etiology on why. Continue off medicationEliquis. Chronic diastolic congestive heart failure: Echo 1 year prior demonstrates normal ejection fraction. Continue to monitor closely. Patient off Lasix at this time. Diabetes mellitus type 2 with hypoglycemia: Hemoglobin A1c 4.8. No need for diabetic medication. Patient previously on Trulicity. This will be discontinued. Dietary to adjust nutrition. Await changes by dietary. Monitor hemoglobin. COPD: Continue with medication HTN: Blood pressure stable off medication. Continue to hold blood pressure medicationscarvedilol, Lasix and losartan. Patient will likely not require any medication at discharge. Depression: Meds reviewed. Continue to hold Trazadone. Continue with Effexor. Time Spent Managing Pts Care (In Minutes): 55
[2020-07-12 16:37] LABS: Hematocrit 26.7 % (36.0-45.0)
[2020-07-13] MEDS: Meropenem 1,000 MG in NA CHLORIDE 0.9% 100 ML IV SCH ×3 (00:39→16:59)
[2020-07-13 05:50] LABS: Absolute Lymphocytes (CBC) 1.6 K/uL (0.7-4.9); Hematocrit 26.1 % (36.0-45.0); Lymphocytes % 28.7 % (15.3-44.8); MPV 8.6 fL (7.6-11.3); RBC Red Blood Cell Count 2.83 M/uL (3.86-4.86)
[2020-07-13 06:07] LABS: BUN Blood Urea Nitrogen 7 mg/dL (7-18); Bicarbonate 29 mmol/L (21-32); Glucose Level 82 mg/dL (74-106); Potassium 3.6 mmol/L (3.5-5.1); Sodium Level 143 mmol/L (136-145)
[2020-07-13] MEDS ORDERED: KCL 20 MEQ/100 mL IVPB 20 MEQ/100 ML BAG IV ONE (07:00)
[2020-07-13] MEDS: VENLAFAXINE HCL 150 MG PO SCH (07:16)
[2020-07-13] MEDS: FAMOTIDINE 20 MG/2 ML VIAL IV SCH (07:17)
[2020-07-13] MEDS: THIAMINE HCL 100 MG TABLET PO SCH (07:17)
[2020-07-13] MEDS: FOLIC ACID 1 MG TABLET PO SCH (07:17)
[2020-07-13] MEDS: JEVITY 1.5 CAL LIQUID 1,000 ML BOT FT SCH ×5 (07:17→20:38)
[2020-07-13] MEDS: HEPARIN 5000 UNIT/ML 1 ML VIAL SQ SCH ×2 (07:17→20:38)
[2020-07-13] MEDS: INSULIN -REGULAR HUMAN 50 UNIT/0.5 ML ML SQ SCH ×4 (07:30→20:39)
[2020-07-13] MEDS: D5 0.45 NS 1,000 ML IV SCH ×3 (08:38→14:07)
--- NOTE | 2020-07-13 14:10 | P.PN ---
Subjective Date of Service: 07/13/20 Primary Care Provider: Dr. Galan Chief Complaint: UTI, hypotension, weakness Subjective: Improving, Doing well Physical Examination - Vital Signs Temperature: 97.9 F Blood Pressure: 109/62 Pulse: 97 Respirations: 20 Pulse Ox (%): 100 Assessment & Plan Discharge Plan: Other (detention facility) Plan to discharge in: 48 Hours Physician Review Additional Text: Physical exam: Patient alert, cooperative. No significant distress noted. Patient more alert today. Heart: Regular rate and rhythm Lungs: Clear to auscultation Abdomen: Soft nontender. PEG tube in place. Extremities: Overall stable. No significant edema. Assessment Complicated urinary tract infection complicated with recent instrumentation (left ureteral stenting S/P renal calculus) and long-term indwelling Rome catheter due to immobilization, urine culture positive for ProteusESBL Hypotension likely secondary to dehydration and over utilization of blood pressure medication/diuretics Normocytic Anemia Speck iron deficiency anemia Chronic diastolic congestive heart failure Diabetes mellitus type 2 with hypoglycemia COPD HTN Depression Plan Complicated urinary tract infection complicated with recent instrumentation (left ureteral stenting S/P renal calculus) and long-term indwelling Rome catheter due to immobilization, urine culture positive for ProteusESBL: Patient doing well. Patient received transfusion with improvement of hemoglobin. We will continue monitor closely. Repeat urine culture negative. Patient will continue with Merrem IV for 2 weeks. Case discussed with dietary. Dietary to adjust nutrition due to hypoglycemia. Patient also remains on D5 half-normal. If taking good oral intake will discontinue or Hep-Lock IV. Encourage patient to increase oral intake. We will continue to monitor closely. Patient awaiting approval to go to skilled facility likely on Wednesday. PICC line in place in preparation for this. I will turn the service over to the hospitalist team tomorrow. I will go plan of care with him. Hypotension likely secondary to dehydration and over utilization of blood pressure medication/diuretics: Overall stable. Will discontinue IV fluids once taking good oral intake. Dietary to adjust nutrition due to hypoglycemia. Will monitor change. Normocytic anemia suspect iron deficiency anemia: Patient doing well post transfusion. Maintain hemoglobin above 7.0. Will monitor closely. Patient previously on Eliquis. Unknown etiology on why. Continue off medicationEliquis. Chronic diastolic congestive heart failure: Echo 1 year prior demonstrates normal ejection fraction. Continue to monitor closely. Patient off Lasix at this time. Diabetes mellitus type 2 with hypoglycemia: Hemoglobin A1c 4.8. No need for diabetic medication. Patient previously on Trulicity. This will be discontinued. Dietary to adjust nutrition. Await changes by dietary. Monitor hemoglobin. COPD: Continue with medication HTN: Blood pressure stable off medication. Continue to hold blood pressure medicationscarvedilol, Lasix and losartan. Patient will likely not require any medication at discharge. Depression: Meds reviewed. Continue to hold Trazadone. Continue with Effexor. Time Spent Managing Pts Care (In Minutes): 55
[2020-07-14] MEDS: Meropenem 1,000 MG in NA CHLORIDE 0.9% 100 ML IV SCH ×3 (00:16→16:15)
[2020-07-14 05:56] LABS: BUN Blood Urea Nitrogen 8 mg/dL (7-18); Bicarbonate 29 mmol/L (21-32); Glucose Level 85 mg/dL (74-106); Potassium 3.2 mmol/L (3.5-5.1); Sodium Level 142 mmol/L (136-145)
[2020-07-14] MEDS ORDERED: POTASSIUM 25 MEQ EFFERV TAB PO ONE (06:45)
[2020-07-14] MEDS: FAMOTIDINE 20 MG/2 ML VIAL IV SCH (07:16)
[2020-07-14] MEDS: FOLIC ACID 1 MG TABLET PO SCH (07:16)
[2020-07-14] MEDS: THIAMINE HCL 100 MG TABLET PO SCH (07:16)
[2020-07-14] MEDS: JEVITY 1.5 CAL LIQUID 1,000 ML BOT FT SCH ×5 (07:17→20:20)
[2020-07-14] MEDS: HEPARIN 5000 UNIT/ML 1 ML VIAL SQ SCH ×2 (07:17→20:19)
[2020-07-14] MEDS: INSULIN -REGULAR HUMAN 50 UNIT/0.5 ML ML SQ SCH ×4 (07:30→21:00)
[2020-07-14] MEDS ORDERED: POTASSIUM CL SA 10 MEQ TAB PO ONE (08:00)
[2020-07-14] MEDS: VENLAFAXINE HCL 150 MG PO SCH (09:00)
[2020-07-14] MEDS: D5 0.45 NS 1,000 ML IV SCH ×3 (09:42→23:10)
--- NOTE | 2020-07-14 10:15 | P.PN ---
Subjective Date of Service: 07/14/20 Primary Care Provider: Dr. Galan Chief Complaint: UTI, hypotension, weakness Subjective: Other (Pt complains of abdominal pain) Physical Examination - Vital Signs Temperature: 97.5 F Blood Pressure: 111/58 Pulse: 101 Respirations: 18 Pulse Ox (%): 100 - Physical Exam General: Alert HEENT: PERRLA Neck: Supple Respiratory: Normal air movement Cardiovascular: Normal pulses Gastrointestinal: Other (peg tube), Distended Musculoskeletal: No tenderness Neurological: Normal speech - Studies Microbiology Data (last 24 hrs): 07/08/20 15:10 Blood - Blood Aerobic Blood Culture - Final No growth in 5 days. 07/08/20 15:10 Blood - Blood Anaerobic Blood Culture - Final 07/08/20 14:55 Blood - Blood Aerobic Blood Culture - Final No growth in 5 days. 07/08/20 14:55 Blood - Blood Anaerobic Blood Culture - Final No growth in 5 days. Assessment And Plan - Plan Continue IV antibiotic Meropenem CT of abdomen pending due to abdominal distention. Continue to monitor labs Medical management per primary care team Monitor for signs and symptoms of infection Plan discussed with Dr. Chawla Thank you for the consultation Physician Review Additional Text: Physical exam: Patient alert, cooperative. No significant distress noted. Patient more alert today. Heart: Regular rate and rhythm Lungs: Clear to auscultation Abdomen: Soft nontender. PEG tube in place. Extremities: Overall stable. No significant edema. Assessment Complicated urinary tract infection complicated with recent instrumentation (left ureteral stenting S/P renal calculus) and long-term indwelling Rome catheter due to immobilization, urine culture positive for ProteusESBL Hypotension likely secondary to dehydration and over utilization of blood pressure medication/diuretics Normocytic Anemia Speck iron deficiency anemia Chronic diastolic congestive heart failure Diabetes mellitus type 2 with hypoglycemia COPD HTN Depression Plan Complicated urinary tract infection complicated with recent instrumentation (left ureteral stenting S/P renal calculus) and long-term indwelling Rome catheter due to immobilization, urine culture positive for ProteusESBL: Patient doing well. Patient received transfusion with improvement of hemoglobin. We will continue monitor closely. Repeat urine culture negative. Patient will continue with Merrem IV for 2 weeks. Case discussed with dietary. Dietary to adjust nutrition due to hypoglycemia. Patient also remains on D5 half-normal. If taking good oral intake will discontinue or Hep-Lock IV. Encourage patient to increase oral intake. We will continue to monitor closely. Patient awaiting approval to go to skilled facility likely on Wednesday. PICC line in place in preparation for this. I will turn the service over to the hospitalist team tomorrow. I will go plan of care with him. Hypotension likely secondary to dehydration and over utilization of blood pressure medication/diuretics: Overall stable. Will discontinue IV fluids once taking good oral intake. Dietary to adjust nutrition due to hypoglycemia. Will monitor change. Normocytic anemia suspect iron deficiency anemia: Patient doing well post transfusion. Maintain hemoglobin above 7.0. Will monitor closely. Patient previously on Eliquis. Unknown etiology on why. Continue off medicationEliq uis. Chronic diastolic congestive heart failure: Echo 1 year prior demonstrates normal ejection fraction. Continue to monitor closely. Patient off Lasix at this time. Diabetes mellitus type 2 with hypoglycemia: Hemoglobin A1c 4.8. No need for diabetic medication. Patient previously on Trulicity. This will be discontinued. Dietary to adjust nutrition. Await changes by dietary. Monitor hemoglobin. COPD: Continue with medication HTN: Blood pressure stable off medication. Continue to hold blood pressure medicationscarvedilol, Lasix and losartan. Patient will likely not require any medication at discharge. Depression: Meds reviewed. Continue to hold Trazadone. Continue with Effexor. Time Spent Managing PTS Care (In Minutes): 30
--- NOTE | 2020-07-14 11:02 | RAD REPORT ---
EXAM DESCRIPTION: CT - Abdomen Pelvis W Contrast - 07/14/2020 10:46 am CLINICAL HISTORY: Abdominal pain. COMPARISON: July 08, 2020 TECHNIQUE: Computed axial tomography of the abdomen and pelvis was obtained. 100 cc Isovue-300 is ad ministered intravenously. Oral contrast was given. All CT scans are performed using dose optimization technique as appropriate and may include automated exposure control or mA/KV adjustment according to patient size. FINDINGS: Mild fatty liver. Cholecystectomy. Percutaneous tube is present within the gastric antrum. Left ureteral stent in good position. Mild left hydronephrosis. The spleen, adrenals and pancreas are unremarkable. Sigmoid colon is dilated measuring 9.7 centimeters. Rome catheter within bladder. IMPRESSION: A left ureteral stent in good position with mild left hydronephrosis Sigmoid colon is dilated measuring 9.7 centimeters. This has the appearance of an ileus
--- NOTE | 2020-07-14 13:32 | P.PN ---
Subjective Date of Service: 07/14/20 Primary Care Provider: Dr. Galan Chief Complaint: UTI, hypotension, weakness Subjective: Worsening (Patient's abdomen is distended) Physical Examination - Vital Signs Temperature: 97.4 F Blood Pressure: 133/64 Pulse: 102 Respirations: 18 Pulse Ox (%): 98 - Physical Exam General: In no apparent distress HEENT: Atraumatic, Normocephalic Neck: Supple Respiratory: Normal air movement Cardiovascular: Regular rate/rhythm, Normal S1 S2 Gastrointestinal: Hypoactive, Distended Musculoskeletal: No clubbing, No swelling, No contractures, No erythema, No tenderness, No warmth Neurological: Normal speech, Normal affect - Studies Microbiology Data (last 24 hrs): 07/08/20 15:10 Blood - Blood Aerobic Blood Culture - Final No growth in 5 days. 07/08/20 15:10 Blood - Blood Anaerobic Blood Culture - Final 07/08/20 14:55 Blood - Blood Aerobic Blood Culture - Final No growth in 5 days. 07/08/20 14:55 Blood - Blood Anaerobic Blood Culture - Final No growth in 5 days. Assessment & Plan Physician Review Additional Text: Assessment Patient is a 70 year old female with a history urinary obstruction s/p ureteral stent and chronic indwelling following catheter who is currently with UTI with ESBL proteus mirabilis. She is currently on meropenem. Her hospital course was complicated by anemia s/p transfusion, and hypoglycemia due to poor nutrition. She is currently on tube feeds via PEG. CT A/P obtained on 07/14 for abdominal distention showed sigmoid dilatation Assessment Sigmoid dilatation Complicated urinary tract infection complicated with recent instrumentation (left ureteral stenting S/P renal calculus) and long-term indwelling Rome catheter due to immobilization, urine culture positive for ProteusESBL Hypotension likely secondary to dehydration and over utilization of blood pressure medication/diuretics Normocytic Anemia Speck iron deficiency anemia Chronic diastolic congestive heart failure Diabetes mellitus type 2 with hypoglycemia COPD HTN Depression Plan Sigmoid dilation - Hold tube feeds for now, continue D5 1/2 NS infusion. Increase rate to 100 cc/hr - I placed a GI consult for colonic decompression. No GI coverage today - I talked to Dr. Ochoa from GI. He will evaluate the patient and assess for perforation Complicated urinary tract infection complicated with recent instrumentation (left ureteral stenting for renal calculus) and long-term indwelling Rome catheter due to immobilization, urine culture positive for ProteusESBL: - Patient doing well. Patient will continue with Merrem IV for 2 weeks. - PICC line in place Dysphagia, malnutrition and hypoglycemia - On D5 half-normal saline, hardly keeping BG > 100 - continue bowel rest in the setting of sigmoid to the dictation - Patient awaiting approval to go to skilled facility likely on Wednesday. Hypotension likely secondary to dehydration and over utilization of blood pressure medication/diuretics: - Overall stable. Normocytic anemia suspect iron deficiency anemia: - previously on Eliquis, now held - status post blood transfusion. Current hemoglobin of 8.6. - will continue to monitor daily CBC Chronic diastolic congestive heart failure: - Echo 1 year prior demonstrates normal ejection fraction. Continue to monitor closely. Patient off Lasix at this time. Diabetes mellitus type 2 with hypoglycemia: - Hemoglobin A1c 4.8. No need for diabetic medication. Patient previously on Trulicity. This will be discontinued. Dietary to adjust nutrition. Await changes by dietary. COPD: Stable HTN: Blood pressure stable off medication. Continue to hold blood pressure medicationscarvedilol, Lasix and losartan. Patient will likely not require any medication at discharge. Depression: Meds reviewed. Continue to hold Trazadone. Continue with Effexor.
[2020-07-14] MEDS ORDERED: FLEET ENEMA ADULT PR ONE ×2 (16:52→16:55)
[2020-07-14 17:28] LABS: Magnesium 1.6 mg/dL (1.8-2.4); Phosphorus 1.7 mg/dL (2.5-4.9)
[2020-07-14] MEDS: D50W 25 GM/50 ML VIAL IV PRN (20:04)
[2020-07-14] MEDS ORDERED: MAGNESIUM SULFATE 1 gm IVPB 1 GM/100 ML BAG IV ONE (21:00)
[2020-07-14] MEDS ORDERED: KCL 20 MEQ/100 mL IVPB 20 MEQ/100 ML BAG IV ONE (21:00)
[2020-07-15] MEDS: Meropenem 1,000 MG in NA CHLORIDE 0.9% 100 ML IV SCH ×3 (00:26→17:00)
[2020-07-15 06:15] LABS: BUN Blood Urea Nitrogen 6 mg/dL (7-18); Bicarbonate 30 mmol/L (21-32); Glucose Level 78 mg/dL (74-106); Magnesium 1.9 mg/dL (1.8-2.4); Sodium Level 142 mmol/L (136-145)
[2020-07-15] MEDS: FOLIC ACID 1 MG TABLET PO SCH (07:26)
[2020-07-15] MEDS: JEVITY 1.5 CAL LIQUID 1,000 ML BOT FT SCH ×5 (07:26→19:48)
[2020-07-15] MEDS: VENLAFAXINE HCL 150 MG PO SCH (07:26)
[2020-07-15] MEDS: THIAMINE HCL 100 MG TABLET PO SCH (07:26)
[2020-07-15] MEDS: INSULIN -REGULAR HUMAN 50 UNIT/0.5 ML ML SQ SCH ×4 (07:30→19:48)
[2020-07-15] MEDS: HEPARIN 5000 UNIT/ML 1 ML VIAL SQ SCH ×2 (07:34→19:43)
[2020-07-15] MEDS: FAMOTIDINE 20 MG/2 ML VIAL IV SCH (07:34)
--- NOTE | 2020-07-15 08:11 | RAD REPORT ---
EXAM DESCRIPTION: RAD - Abdomen 1 View (KUB) - 07/15/2020 6:55 am CLINICAL HISTORY: ileus COMPARISON: Abdomen 1 View (KUB) dated 07/08/2020; Abdomen Pelvis W Contrast dated 07/14/2020 FINDINGS: Double pigtail stent remains in place in the left collecting system. Prominent small bowel pattern is not clearly different. No free air or pneumatosis identifiable. PEG tube is seen in the l eft upper quadrant. The dilated portion of the sigmoid colon that fills much of the left abdomen has not change from the prior day CT study. Contrast opacified stool remains in the right-side of the col on. No suspicious calcifications. No significant bony findings IMPRESSION: The dilated tortuous and redundant sigmoid colon has not changed. Contrast opacified right-side of the colon is present indicating antegrade movement of the contrast s yessenia the July 14 CT study. No free air or pneumatosis.
[2020-07-15] MEDS: D50W 25 GM/50 ML VIAL IV PRN ×5 (08:25→19:55)
[2020-07-15] MEDS ORDERED: POTASSIUM PHOS 30 MM in NS 500 ML IV ONE (08:30)
--- NOTE | 2020-07-15 13:14 | CON ---
Date of Consultation: 07/15/2020 Diagnosis: Sigmoid distention. History Of Present Illness: This is the case of a 70-year-old patient with multiple medical problems , congestive heart failure, COPD, diabetes, morbid obesity, rheumatoid arthritis, UTI and that is the reason why she was admitted to the hospital. Yesterday, she developed abdominal distention. The nu rse picked that up, they did an x-ray and shows sigmoid distention. The feeding tube to the PEG tube was put on hold. Overnight, she had some bowel movement and she feels better. The abdomen is soft and depressible, but we have findings on the CT scan. Allergies: ASPIRIN, PENICILLIN. Medications: Reviewed including Questran, Ultram, Effexor, ProAir. Social History: She does not smoke. She does not drink alcohol. Past Surgical History: Includes hysterectomy, cholecystectomy, tubal ligation. Family History: Includes hypertension and diabetes. Physical Examination: General: The patient is awake, alert, not in any distress. HEENT: Pupils are equal and reactive. Anicteric. Neck: Supple. Chest: Clear. Abdomen: Soft and depressible. No guarding or rebound. No peritoneal signs. Rectal: Deferred. Extremities: Good capillary refill. Imaging: CAT scan of the abdomen and pelvis was reviewed with the previous reading by Dr. Rashid garcia d also today, we discussed the case with Dr. Morris, trying to look to see if there is any possibili ty of volvulus in my imaging since we have sigmoid resection, but after he reviewed that he said that he does not see any evidence of any volvulus in the sigmoid, it is just distention with no inflammat ion. No pneumatosis. Assessment: This is a 70-year-old patient with sigmoid extension. The x-ray was reviewed today. Cl inically, does not have any symptoms at this moment. Apparently, she decompressed last night and she has no abdominal distention today. From the x-ray, we did not see any pneumatosis, any ischemic werner nges. The patient has a GI consult, they are about to see her today and do some recommendations. Fr om the surgical standpoint, we will see what the GI doctor prefers. We explained to the lady about t he redundant sigmoid and how that can lead into a volvulus as an emergency, although she is not that comfortable going for any sigmoid resection at this moment and see what the GI doctor says and we kay l give more recommendations as the case develops. SILVANO/NATE Voice ID: [id number] Report ID: [id number]
--- NOTE | 2020-07-15 14:22 | P.PN ---
Subjective Date of Service: 07/15/20 Primary Care Provider: Dr. Galan Chief Complaint: UTI, hypotension, weakness Patient seen examined at bedside, repeat UA showed mixed skin brian. CT abdomen and pelvis showed ileus, patient is NPO, abdominal distention has gone down immensely. Continue monitor closely. Review of Systems 10-point ROS is otherwise unremarkable Physical Examination - Vital Signs Temperature: 98.6 F Blood Pressure: 122/70 Pulse: 79 Respirations: 18 Pulse Ox (%): 99 Assessment And Plan - Plan General: Confused HEENT: Atraumatic, Normocephalic, PERRLA Neck: Supple, 2+ carotid pulse no bruit Respiratory: Clear to auscultation bilaterally, Normal air movement Cardiovascular: Regular rate/rhythm, Normal S1 S2 Capillary refill: <2 Seconds Gastrointestinal: Decreased bowel sounds Other (PEG tube insertion site) Musculoskeletal: No clubbing, No swelling, No contractures Integumentary: No breakdown Antibiotics: Meropenem Start: 07/09 stop: 07/23 Assessment: 1. Urosepsis 2. Anemia of chronic disease 3. Hypoglycemia 4. Congestive heart failure 5. History of renal stone status post stent placement Plan: 1. Continue IV meropenem for duration of 2 weeks. Repeat UA taken on 07/11- mixed skin brian. 2. Continue to monitor hemoglobin well. 3. Patient continues to have hypoglycemia despite PEG tube feeding as well as p.o. intake. Continue to monitor closely. CT abdomen pelvis showed a ileus in the sigmoid colon. Continue monitor closely. -medical management per primary team -continue monitor CBC and BMP -continue to monitor for signs of infection Plan of care discussed with Dr. Chawla Thank you Dr. Banuelos for consult. Physician Review Additional Text: Assessment Patient is a 70 year old female with a history urinary obstruction s/p ureteral stent and chronic indwelling following catheter who is currently with UTI with ESBL proteus mirabilis. She is currently on meropenem. Her hospital course was complicated by anemia s/p transfusion, and hypoglycemia due to poor nutrition. She is currently on tube feeds via PEG. CT A/P obtained on 07/14 for abdominal distention showed sigmoid dilatation Assessment Sigmoid dilatation Complicated urinary tract infection complicated with recent instrumentation (left ureteral stenting S/P renal calculus) and long-term indwelling Rome catheter due to immobilization, urine culture positive for ProteusESBL Hypotension likely secondary to dehydration and over utilization of blood pressure medication/diuretics Normocytic Anemia Speck iron deficiency anemia Chronic diastolic congestive heart failure Diabetes mellitus type 2 with hypoglycemia COPD HTN Depression Plan Sigmoid dilation - Hold tube feeds for now, continue D5 1/2 NS infusion. Increase rate to 100 cc/hr - I placed a GI consult for colonic decompression. No GI coverage today - I talked to Dr. Ochoa from GI. He will evaluate the patient and assess for perforation Complicated urinary tract infection complicated with recent instrumentation (lef t ureteral stenting for renal calculus) and long-term indwelling Rome catheter due to immobilization, urine culture positive for ProteusESBL: - Patient doing well. Patient will continue with Merrem IV for 2 weeks. - PICC line in place Dysphagia, malnutrition and hypoglycemia - On D5 half-normal saline, hardly keeping BG > 100 - continue bowel rest in the setting of sigmoid to the dictation - Patient awaiting approval to go to skilled facility likely on Wednesday. Hypotension likely secondary to dehydration and over utilization of blood pressure medication/diuretics: - Overall stable. Normocytic anemia suspect iron deficiency anemia: - previously on Eliquis, now held - status post blood transfusion. Current hemoglobin of 8.6. - will continue to monitor daily CBC Chronic diastolic congestive heart failure: - Echo 1 year prior demonstrates normal ejection fraction. Continue to monitor closely. Patient off Lasix at this time. Diabetes mellitus type 2 with hypoglycemia: - Hemoglobin A1c 4.8. No need for diabetic medication. Patient previously on Trulicity. This will be discontinued. Dietary to adjust nutrition. Await changes by dietary. COPD: Stable HTN: Blood pressure stable off medication. Continue to hold blood pressure medicationscarvedilol, Lasix and losartan. Patient will likely not require any medication at discharge. Depression: Meds reviewed. Continue to hold Trazadone. Continue with Effexor.
[2020-07-15] MEDS: D5 0.45 NS 1,000 ML IV SCH ×2 (16:55→19:40)
[2020-07-15 17:23] LABS: Magnesium 1.8 mg/dL (1.8-2.4); Phosphorus 4.1 mg/dL (2.5-4.9); Potassium 3.1 mmol/L (3.5-5.1)
[2020-07-15] MEDS ORDERED: KCL 20 MEQ/100 mL IVPB 20 MEQ/100 ML BAG IV SCH ×2 (19:00→23:00)
[2020-07-16] MEDS: D50W 25 GM/50 ML VIAL IV PRN ×4 (00:35→20:50)
[2020-07-16] MEDS: Meropenem 1,000 MG in NA CHLORIDE 0.9% 100 ML IV SCH ×3 (00:38→15:56)
[2020-07-16] MEDS: VENLAFAXINE HCL 150 MG PO SCH (07:27)
[2020-07-16] MEDS: THIAMINE HCL 100 MG TABLET PO SCH (07:29)
[2020-07-16] MEDS: HEPARIN 5000 UNIT/ML 1 ML VIAL SQ SCH ×2 (07:29→19:43)
[2020-07-16] MEDS: FAMOTIDINE 20 MG/2 ML VIAL IV SCH (07:29)
[2020-07-16] MEDS: FOLIC ACID 1 MG TABLET PO SCH (07:29)
[2020-07-16] MEDS: JEVITY 1.5 CAL LIQUID 1,000 ML BOT FT SCH ×5 (07:29→19:44)
[2020-07-16] MEDS: INSULIN -REGULAR HUMAN 50 UNIT/0.5 ML ML SQ SCH ×4 (07:30→21:00)
[2020-07-16] MEDS: D5 0.45 NS 1,000 ML IV SCH ×2 (07:30→15:57)
--- NOTE | 2020-07-16 08:03 | P.PN ---
Subjective Date of Service: 07/15/20 Patient is doing well. Patient denies any new complaints. PICC line has been placed. Awaiting for antibiotics to be arranged at a jail facility placement patient with ESBL-Proteus mirabilis. Continue working with therapy. Review of Systems 10-point ROS is otherwise unremarkable Physical Examination - Vital Signs Temperature: 97.1 F Blood Pressure: 133/36 Pulse: 105 Respirations: 16 Pulse Ox (%): 98 - Physical Exam General: Alert, In no apparent distress HEENT: Atraumatic, PERRLA, EOMI Neck: Supple, JVD not distended Respiratory: Clear to auscultation bilaterally, Normal air movement Cardiovascular: Regular rate/rhythm, Normal S1 S2 Gastrointestinal: Normal bowel sounds, No tenderness, Other (PEG tube in place) Musculoskeletal: No tenderness Integumentary: No rashes Neurological: Normal speech, Normal tone, Normal affect, Abnormal strength - Studies Medications List Reviewed: Yes Assessment & Plan - Problems (Diagnosis) (1) Partial bowel obstruction Current Visit: No Status: Acute (2) COPD (chronic obstructive pulmonary disease) Current Visit: No Status: Chronic (3) DM type 2 (diabetes mellitus, type 2) Current Visit: No Status: Chronic (4) Morbid obesity Current Visit: No Status: Chronic (5) Proteus mirabilis infection Current Visit: Yes Status: Acute (6) ESBL (extended spectrum beta-lactamase) producing bacteria infection Current Visit: Yes Status: Acute - Plan Plan: 1. Continue with IV antibiotic therapy x2 weeks 2. long-term facility placement 3. Physical therapy 4. Tube feedings 5. Monitor nutritional status 6. Monitor renal function closely 7. GI and DVT prophylaxis Discharge Plan: Group Home Plan to discharge in: Greater than 2 days - Advance Directives Does patient have a Living Will: Yes Does patient have a Durable POA for Healthcare: No - Code Status/Comfort Care Code Status Assessed: Yes Code Status: Full Code Critical Care: No Time Spent Managing PTS Care (In Minutes): 35
--- NOTE | 2020-07-16 08:07 | P.PN ---
Date of Service: 07/16/20 Subjective Patient continues to improve with no new complaints. Finishing antibiotic therapy. Small-bowel obstruction has resolved. Awaiting placement at nursing facility. Review of Systems 10-point ROS is otherwise unremarkable Physical Examination - Vital Signs Reviewed - Physical Exam General: Alert, In no apparent distress Respiratory: Clear to auscultation bilaterally, Normal air movement Cardiovascular: Regular rate/rhythm, Normal S1 S2 Gastrointestinal: Normal bowel sounds, No tenderness, Other (PEG tube in place) Neurological: Normal speech, Normal tone, Normal affect, Abnormal strength Assessment & Plan - Problems (Diagnosis) (1) Partial bowel obstruction Current Visit: No Status: Acute (2) COPD (chronic obstructive pulmonary disease) Current Visit: No Status: Chronic (3) DM type 2 (diabetes mellitus, type 2) Current Visit: No Status: Chronic (4) Morbid obesity Current Visit: No Status: Chronic (5) Proteus mirabilis infection Current Visit: Yes Status: Acute (6) ESBL (extended spectrum beta-lactamase) producing bacteria infection Current Visit: Yes Status: Acute - Plan Plan: Continue with plan of care as mentioned below 1. Continue with IV antibiotic therapy x2 weeks 2. half-way facility placement pending 3. Physical therapy assistance appreciated 4. Tube feedings will continue daily 5. Monitor nutritional status 6. Monitor renal function closely 7. GI and DVT prophylaxis
[2020-07-16] MEDS: KCL 20 MEQ/100 mL IVPB 20 MEQ/100 ML BAG IV SCH ×2 (09:43→11:48)
[2020-07-16] MEDS ORDERED: POTASSIUM CL 40 MEQ in NA CHLORIDE 0.9% 500 ML IV SCH (10:00)
--- NOTE | 2020-07-16 10:14 | P.PN ---
Subjective Date of Service: 07/16/20 Primary Care Provider: Dr. Galan Chief Complaint: UTI, hypotension, weakness Patient seen examined at bedside, feeling much better today and clinically appears to be much better as well. Vitals stable. Review of Systems 10-point ROS is otherwise unremarkable Physical Examination - Vital Signs Temperature: 97.1 F Blood Pressure: 133/36 Pulse: 105 Respirations: 16 Pulse Ox (%): 98 - Studies Active Medications Acetaminophen (Acetaminophen 500 Mg Tab) 500 mg PO Q6H PRN PRN Reason: Pain scale 2-4 (Mild) Dextrose (D50w 25 Gm/50 Ml Vial) 12.5 gm IV PRN PRN; Protocol PRN Reason: HYPOGLYCEMIA Last Admin: 07/16/20 00:35 Dose: 12.5 gm Documented by: Famotidine (Famotidine 20 Mg/2 Ml Vial) 20 mg IV DAILY [facility]; Protocol Last Admin: 07/16/20 07:29 Dose: 20 mg Documented by: Folic Acid (Folic Acid 1 Mg Tablet) 1 mg PO DAILY [facility] Last Admin: 07/16/20 07:29 Dose: 1 mg Documented by: Heparin Sodium (Porcine) (Heparin 5000 Unit/Ml 1 Ml Vial) 5,000 unit SQ Q12HR [facility] Last Admin: 07/16/20 07:29 Dose: 5,000 unit Documented by: Home Med (Venlafaxine Hcl [Effexor Xr]) 150 mg PO DAILY [facility] Last Admin: 07/16/20 07:27 Dose: 150 mg Documented by: Meropenem 1,000 mg/ Sodium (Chloride) 100 mls @ 100 mls/hr IV Q8HR [facility] Last Admin: 07/16/20 07:28 Dose: 100 mls Documented by: Dextrose/Sodium Chloride (Dextrose 5% O.45% Saline) 1,000 mls @ 100 mls/hr IV .Q10H [facility] Last Admin: 07/16/20 07:30 Dose: 1,000 mls Documented by: Potassium Chloride (Kcl 20 Meq/100 Ml Ivpb (Premix)) 20 meq in 100 mls @ 50 mls/hr IV Q2H [facility] Stop: 07/16/20 13:59 Last Admin: 07/16/20 09:43 Dose: 100 mls Documented by: Insulin Human Regular (Insulin -Regular Human 50 Unit/0.5 Ml Ml) 0 unit SQ ACHS [facility]; Protocol Last Admin: 07/16/20 07:30 Dose: Not Given Documented by: Ondansetron HCl (Ondansetron 4 Mg/2 Ml Vial) 4 mg IV Q6HP PRN PRN Reason: NAUSEA / VOMITING Sodium Chloride (Flush Normal Saline 10 Ml) 10 ml IV BID [facility] Last Admin: 07/16/20 07:27 Dose: 10 ml Documented by: Thiamine HCl (Thiamine Hcl 100 Mg Tablet) 100 mg PO DAILY [facility] Last Admin: 07/16/20 07:29 Dose: 100 mg Documented by: Tramadol HCl (Tramadol Hcl 50 Mg Tab) 50 mg PO TID PRN PRN Reason: Pain scale 5-7 (Moderate) Last Admin: 07/11/20 19:51 Dose: 50 mg Documented by: Temp Pulse Resp BP Pulse Ox 97.1 F 105 H 16 133/36 L 98 07/16/20 08:06 07/16/20 08:06 07/16/20 08:06 07/16/20 08:06 07/16/20 08:06 Active Medications Acetaminophen (Acetaminophen 500 Mg Tab) 500 mg PO Q6H PRN PRN Reason: Pain scale 2-4 (Mild) Dextrose (D50w 25 Gm/50 Ml Vial) 12.5 gm IV PRN PRN; Protocol PRN Reason: HYPOGLYCEMIA Last Admin: 07/16/20 00:35 Dose: 12.5 gm Documented by: Famotidine (Famotidine 20 Mg/2 Ml Vial) 20 mg IV DAILY [facility]; Protocol Last Admin: 07/16/20 07:29 Dose: 20 mg Documented by: Folic Acid (Folic Acid 1 Mg Tablet) 1 mg PO DAILY [facility] Last Admin: 07/16/20 07:29 Dose: 1 mg Documented by: Heparin Sodium (Porcine) (Heparin 5000 Unit/Ml 1 Ml Vial) 5,000 unit SQ Q12HR [facility] Last Admin: 07/16/20 07:29 Dose: 5,000 unit Documented by: Home Med (Venlafaxine Hcl [Effexor Xr]) 150 mg PO DAILY [facility] Last Admin: 07/16/20 07:27 Dose: 150 mg Documented by: Meropenem 1,000 mg/ Sodium (Chloride) 100 mls @ 100 mls/hr IV Q8HR [facility] Last Admin: 07/16/20 07:28 Dose: 100 mls Documented by: Dextrose/Sodium Chloride (Dextrose 5% O.45% Saline) 1,000 mls @ 100 mls/hr IV .Q10H [facility] Last Admin: 07/16/20 07:30 Dose: 1,000 mls Documented by: Potassium Chloride (Kcl 20 Meq/100 Ml Ivpb (Premix)) 20 meq in 100 mls @ 50 mls/hr IV Q2H [facility] Stop: 07/16/20 13:59 Last Admin: 07/16/20 09:43 Dose: 100 mls Documented by: Insulin Human Regular (Insulin -Regular Human 50 Unit/0.5 Ml Ml) 0 unit SQ ACHS [facility]; Protocol Last Admin: 07/16/20 07:30 Dose: Not Given Documented by: Ondansetron HCl (Ondansetron 4 Mg/2 Ml Vial) 4 mg IV Q6HP PRN PRN Reason: NAUSEA / VOMITING Sodium Chloride (Flush Normal Saline 10 Ml) 10 ml IV BID [facility] Last Admin: 07/16/20 07:27 Dose: 10 ml Documented by: Thiamine HCl (Thiamine Hcl 100 Mg Tablet) 100 mg PO DAILY [facility] Last Admin: 07/16/20 07:29 Dose: 100 mg Documented by: Tramadol HCl (Tramadol Hcl 50 Mg Tab) 50 mg PO TID PRN PRN Reason: Pain scale 5-7 (Moderate) Last Admin: 07/11/20 19:51 Dose: 50 mg Documented by: Medications List Reviewed: Yes Assessment And Plan - Plan General: Confused HEENT: Atraumatic, Normocephalic, PERRLA Neck: Supple, 2+ carotid pulse no bruit Respiratory: Clear to auscultation bilaterally, Normal air movement Cardiovascular: Regular rate/rhythm, Normal S1 S2 Capillary refill: <2 Seconds Gastrointestinal: Decreased bowel sounds Other (PEG tube insertion site) Musculoskeletal: No clubbing, No swelling, No contractures Integumentary: No breakdown Antibiotics: Meropenem Start: 07/09 stop: 07/23 Assessment: 1. Urosepsis 2. Anemia of chronic disease 3. Hypoglycemia 4. Congestive heart failure 5. History of renal stone status post stent placement Plan: 1. Continue IV meropenem for duration of 2 weeks. Repeat UA taken on 07/11- mixed skin brian. 2. Continue to monitor hemoglobin well. 3. Patient continues to have hypoglycemia despite PEG tube feeding as well as p.o. intake. Continue to monitor closely. CT abdomen pelvis showed a ileus in the sigmoid colon. Continue monitor closely. -medical management per primary team -continue monitor CBC and BMP -continue to monitor for signs of infection Plan of care discussed with Dr. Chawla Thank you Dr. Banuelos for consult.
[2020-07-16] MEDS ORDERED: LORazepam 2 MG/ML VIAL IV ONE (19:35)
[2020-07-17] MEDS: Meropenem 1,000 MG in NA CHLORIDE 0.9% 100 ML IV SCH ×2 (00:14→08:54)
[2020-07-17] MEDS: KCL 20 MEQ/100 mL IVPB 20 MEQ/100 ML BAG IV SCH ×2 (00:15→02:00)
[2020-07-17] MEDS: D5 0.45 NS 1,000 ML IV SCH (01:44)
[2020-07-17] MEDS: D50W 25 GM/50 ML VIAL IV PRN (06:30)
[2020-07-17] MEDS: INSULIN -REGULAR HUMAN 50 UNIT/0.5 ML ML SQ SCH ×3 (07:30→16:30)
[2020-07-17] MEDS: JEVITY 1.5 CAL LIQUID 1,000 ML BOT FT SCH ×2 (07:42→11:00)
[2020-07-17] MEDS: THIAMINE HCL 100 MG TABLET PO SCH (08:52)
[2020-07-17] MEDS: FOLIC ACID 1 MG TABLET PO SCH (08:52)
[2020-07-17] MEDS: FAMOTIDINE 20 MG/2 ML VIAL IV SCH (08:53)
[2020-07-17] MEDS: VENLAFAXINE HCL 150 MG PO SCH (08:53)
[2020-07-17] MEDS: HEPARIN 5000 UNIT/ML 1 ML VIAL SQ SCH (08:55)
[2020-07-17 09:22] VITALS: O2SAT 96
[2020-07-17 09:54] LABS: BUN Blood Urea Nitrogen 3 mg/dL (7-18); Bicarbonate 28 mmol/L (21-32); Glucose Level 76 mg/dL (74-106); Sodium Level 144 mmol/L (136-145)
--- NOTE | 2020-07-17 13:25 | PN ---
Date of Progress Note: 07/17/2020 Diagnosis: Abdominal distention. History Of Present Illness: This is the case of a 70-year-old patient, at one moment developed abdom inal distention. She is being tube feed. Tube feed was stopped and her abdominal distention improve d and then she felt better. She has several bowel movements and she has no symptoms at this moment o f abdominal pain. Imaging: CAT scan shows distended sigmoid area, although no evidence of any ischemic event or volvul us as per radiologist. Plan: Continue tube feed. She is asymptomatic at this moment. She should follow up with her primar y doctor and GI doctor for proper colonoscopies. We also explained to her surgical options all that redundant bowel and the importance of not being constipated. We will follow the patient with you. LIONEL Voice ID: [id number] Report ID: [id number]
--- NOTE | 2020-07-17 14:55 | P.PN ---
Subjective Date of Service: 07/17/20 Primary Care Provider: Dr. Galan Chief Complaint: UTI, hypotension, weakness Patient seen examined at bedside, patient is very confused and agitated. Demanding that she leave and be sent home-current plan is to DC patient [facility] a pen[facility]. Review of Systems 10-point ROS is otherwise unremarkable Physical Examination - Vital Signs Temperature: 97.1 F Blood Pressure: 128/62 Pulse: 106 Respirations: 17 Pulse Ox (%): 99 - Studies Active Medications Acetaminophen (Acetaminophen 500 Mg Tab) 500 mg PO Q6H PRN PRN Reason: Pain scale 2-4 (Mild) Dextrose (D50w 25 Gm/50 Ml Vial) 12.5 gm IV PRN PRN; Protocol PRN Reason: HYPOGLYCEMIA Last Admin: 07/17/20 06:30 Dose: 12.5 gm Documented by: Famotidine (Famotidine 20 Mg/2 Ml Vial) 20 mg IV DAILY [facility]; Protocol Last Admin: 07/17/20 08:53 Dose: 20 mg Documented by: Folic Acid (Folic Acid 1 Mg Tablet) 1 mg PO DAILY [facility] Last Admin: 07/17/20 08:52 Dose: 1 mg Documented by: Heparin Sodium (Porcine) (Heparin 5000 Unit/Ml 1 Ml Vial) 5,000 unit SQ Q12HR [facility] Last Admin: 07/17/20 08:55 Dose: 5,000 unit Documented by: Home Med (Venlafaxine Hcl [Effexor Xr]) 150 mg PO DAILY [facility] Last Admin: 07/17/20 08:53 Dose: 150 mg Documented by: Meropenem 1,000 mg/ Sodium (Chloride) 100 mls @ 100 mls/hr IV Q8HR [facility] Last Admin: 07/17/20 08:54 Dose: 100 mls Documented by: Dextrose/Sodium Chloride (Dextrose 5% O.45% Saline) 1,000 mls @ 100 mls/hr IV .Q10H [facility] Last Admin: 07/17/20 01:44 Dose: 1,000 mls Documented by: Insulin Human Regular (Insulin -Regular Human 50 Unit/0.5 Ml Ml) 0 unit SQ ACHS [facility]; Protocol Last Admin: 07/17/20 11:30 Dose: Not Given Documented by: Ondansetron HCl (Ondansetron 4 Mg/2 Ml Vial) 4 mg IV Q6HP PRN PRN Reason: NAUSEA / VOMITING Sodium Chloride (Flush Normal Saline 10 Ml) 10 ml IV BID [facility] Last Admin: 07/17/20 09:00 Dose: Not Given Documented by: Thiamine HCl (Thiamine Hcl 100 Mg Tablet) 100 mg PO DAILY [facility] Last Admin: 07/17/20 08:52 Dose: 100 mg Documented by: Tramadol HCl (Tramadol Hcl 50 Mg Tab) 50 mg PO TID PRN PRN Reason: Pain scale 5-7 (Moderate) Last Admin: 07/11/20 19:51 Dose: 50 mg Documented by: Laboratory Last Values WBC 12.90 K/uL (4.3-10.9) H 07/08/20 14:55 RBC 2.78 M/uL (3.86-4.86) L 07/08/20 14:55 Hgb 8.7 g/dL (12.0-15.0) L 07/08/20 14:55 Hct 26.7 % (36.0-45.0) L 07/08/20 14:55 MCV 95.9 fL (80-100) 07/08/20 14:55 MCH 31.4 pg (27.0-35.0) 07/08/20 14:55 MCHC 32.8 g/dL (32.0-36.0) 07/08/20 14:55 RDW 15.1 % (12.1-15.2) 07/08/20 14:55 Plt Count 264 K/uL (152-406) 07/08/20 14:55 MPV 8.5 fL (7.6-11.3) 07/08/20 14:55 Neutrophils % 76.6 % (41.7-73.7) H 07/08/20 14:55 Lymphocytes % 11.6 % (15.3-44.8) L 07/08/20 14:55 Monocytes % 9.9 % (3.3-12.3) 07/08/20 14:55 Eosinophils % 1.4 % (0-4.4) 07/08/20 14:55 Basophils % 0.5 % (0-1.3) 07/08/20 14:55 Absolute Neutrophils 9.9 K/uL (1.8-8.0) H 07/08/20 14:55 Absolute Lymphocytes 1.5 K/uL (0.7-4.9) 07/08/20 14:55 Absolute Monocytes 1.3 K/uL (0.1-1.3) 07/08/20 14:55 Absolute Eosinophils 0.2 K/uL (0-0.5) 07/08/20 14:55 Absolute Basophils 0.1 K/uL (0-0.5) 07/08/20 14:55 PT 34.5 SECONDS (9.5-12.5) H 07/08/20 14:55 INR 2.97 07/08/20 14:55 APTT 39.8 SECONDS (24.3-36.9) H 07/08/20 14:55 Sodium 133 mmol/L (136-145) L 07/08/20 14:55 Potassium 4.9 mmol/L (3.5-5.1) 07/08/20 14:55 Chloride 106 mmol/L (98-107) 07/08/20 14:55 Carbon Dioxide 22 mmol/L (21-32) 07/08/20 14:55 BUN 19 mg/dL (7-18) H 07/08/20 14:55 Creatinine 1.12 mg/dL (0.55-1.3) 07/08/20 14:55 Estimated GFR 58 mL/min (=/>90) L 07/08/20 14:55 Glucose 123 mg/dL (74-106) H 07/08/20 14:55 POC Glucose 115 mg/dL (65-120) 07/08/20 15:09 Lactic Acid 1.2 mmol/L (0.4-2.0) 07/08/20 14:55 Calcium 8.5 mg/dL (8.5-10.1) 07/08/20 14:55 Total Bilirubin 0.5 mg/dL (0.2-1.0) 07/08/20 14:55 Direct Bilirubin 0.3 mg/dL (0-0.2) H 07/08/20 14:55 AST 11 U/L (15-37) L 07/08/20 14:55 ALT 8 U/L (12-78) L 07/08/20 14:55 Alkaline Phosphatase 76 U/L (45-117) 07/08/20 14:55 Creatine Kinase 21 U/L (26-192) L 07/08/20 14:55 CK-MB (CK-2) < 1.0 ng/mL (0.3-3.6) 07/08/20 14:55 Rapid Troponin I < 0.02 ng/mL (0.0-0.045) 07/08/20 14:55 Serum Total Protein 9.2 g/dL (6.4-8.2) H 07/08/20 14:55 Albumin 2.1 g/dL (3.4-5.0) L 07/08/20 14:55 Globulin 7.1 g/dL (2.3-3.5) H 07/08/20 14:55 Albumin/Globulin Ratio 0.3 (1.1-1.8) L 07/08/20 14:55 Amylase 37 U/L (25-115) 07/08/20 14:55 Lipase 54 U/L (73-393) L 07/08/20 14:55 Procalcitonin 0.28 ng/mL (<0.050) H 07/08/20 14:55 Urine Color Yellow (Yellow) 07/08/20 17:16 Urine Appearance Turbid (Clear) 07/08/20 17:16 Urine pH 7.5 (5.0-7.0) H 07/08/20 17:16 Ur Specific [place] <=1.005 (1.005-1.030) 07/08/20 17:16 Glucose (UA)(Auto) Negative (Negative) 07/08/20 17:16 Urine Ketones Negative (Negative) 07/08/20 17:16 Urine Blood 2+ (Negative) H 07/08/20 17:16 Urine Nitrite Negative (Negative) 07/08/20 17:16 Urine Bilirubin Negative (Negataive) 07/08/20 17:16 Urine Urobilinogen 1.0 mg/dL (0.2-1.0) 07/08/20 17:16 Ur Leukocyte Esterase 3+ (Negative) H 07/08/20 17:16 Urine RBC 5-10 /HPF (NONE SEEN) H 07/08/20 17:16 Urine WBC >50 /HPF (<5) H 07/08/20 17:16 Ur Squamous Epith Cells <5 /HPF (NONE SEEN) 07/08/20 17:16 Ur Urothelial Cells Cancelled 07/08/20 16:52 Calcium Oxalate Crystal Cancelled 07/08/20 16:52 Uric Acid Crystals Cancelled 07/08/20 16:52 Triple Phos Crystals Cancelled 07/08/20 16:52 Other Crystals Cancelled 07/08/20 16:52 Amorphous Sediment 1+ /HPF (NONE SEEN) 07/08/20 17:16 Glitter Cells Cancelled 07/08/20 16:52 Urine Bacteria 20-50 /HPF (<20) H 07/08/20 17:16 Hyaline Casts Cancelled 07/08/20 16:52 Fine Granular Casts Cancelled 07/08/20 16:52 Coarse Granular Casts Cancelled 07/08/20 16:52 Waxy Casts Cancelled 07/08/20 16:52 RBC Casts Cancelled 07/08/20 16:52 WBC Casts Cancelled 07/08/20 16:52 Urine Mucus 2+ /HPF (NONE SEEN) 07/08/20 17:16 Urine Other Cancelled 07/08/20 16:52 Urine Trichomonas Cancelled 07/08/20 16:52 Urine Yeast Cancelled 07/08/20 16:52 Ur Yeast w Hyphae Cancelled 07/08/20 16:52 Urine Yeast (Budding) Cancelled 07/08/20 16:52 Urine Sperm Cancelled 07/08/20 16:52 Urine Culture Reflexed Reflexed 07/08/20 17:16 Urine Total Volume Cancelled 07/08/20 16:52 Urine Total Protein Trace (Negative) H 07/08/20 17:16 SARS-CoV-2 RNA (RT-PCR) Negative (NEGATIVE) 07/08/20 18:53 ABO/Rh O POSITIVE 07/08/20 16:12 Solid Phase Ab Screen Negative 07/08/20 16:12 Temp Pulse Resp BP Pulse Ox 97.1 F 106 H 17 128/62 99 07/17/20 12:00 07/17/20 12:00 07/17/20 12:00 07/17/20 12:00 07/17/20 12:00 Medications List Reviewed: Yes Assessment And Plan - Plan General: Confused HEENT: Atraumatic, Normocephalic, PERRLA Neck: Supple, 2+ carotid pulse no bruit Respiratory: Clear to auscultation bilaterally, Normal air movement Cardiovascular: Regular rate/rhythm, Normal S1 S2 Capillary refill: <2 Seconds Gastrointestinal: Decreased bowel sounds Other (PEG tube insertion site) Musculoskeletal: No clubbing, No swelling, No contractures Integumentary: No breakdown Antibiotics: Meropenem Start: 07/09 stop: 07/23 Assessment: 1. Urosepsis 2. Anemia of chronic disease 3. Hypoglycemia 4. Congestive heart failure 5. History of renal stone status post stent placement Plan: 1. Continue IV meropenem for duration of 2 weeks. Repeat UA taken on 07/11- mixed skin brian. 2. Continue to monitor hemoglobin well. 3. Patient continues to have hypoglycemia despite PEG tube feeding as well as p.o. intake. Continue to monitor closely. CT abdomen pelvis showed a ileus in the sigmoid colon. Continue monitor closely. -medical management per primary team -continue monitor CBC and BMP -continue to monitor for signs of infection Plan of care discussed with Dr. Chawla Thank you Dr. Banuelos for consult.
[2020-07-17 17:05] VITALS: BP 144/67; TEMP 98.1
--- NOTE | 2020-07-30 12:15 | CON ---
Reason For Consultation: Sigmoid distention noted on CT scan. History Of Present Illness: The patient is a 70-year-old Afro-[place] female with history of CHF, COPD, diabetes, rheumatoid arthritis, presented to the emergency room with , weakness and urinary tract infection. The patient had a PEG tube in place for nutritional support. CT of abdomen and pelvis significant for left ureteral stent prior placed and also a 9.7 cm distention of the sigmoid colon. It appears the patient has had some possible constipation as well. Past Medical History: Significant for diabetes, CHF, COPD, rheumatoid arthritis. Home Medications: Include ProAir, Effexor, Victoza, Advair, Ultram, Rocaltrol, , Questran Light, magnesium oxide, Mylicon, Zofran, vitamin B1, which is thiamin, carvedilol, Questran, Pepcid, Novolin insulin. Allergies: ASPIRIN, PENICILLIN, AND IBUPROFEN. Past Medical History: Also has in addition to the diabetes, chronic diastolic congestive heart failure, hyperlipidemia, COPD, pacemaker defibrillator, rheumatoid arthritis, anxiety, claustrophobia, hypertension, gallbladder, partial hysterectomy, tubal ligation. Social History: Lives at home with daughters. Has home health, physical therapy . No tobacco or alcohol. Family History: Mother has heart disease, hypertension, diabetes. Review of Systems: The patient is little bit down, but no melena, hematochezia, hematemesis, coffee-grounds emesis, hematuria, dysuria, polyuria, polydipsia, fevers, chills, night sweats, change in weight, depression, , muscle aches, joint aches, backaches. Physical Examination: Vital Signs: The patient is 5 feet 5 inches, 260 pounds. BMI of 43.3 kg/m2, temperature of , pulse 105, respirations 16, blood pressure 133/36, O2 saturation 98%. General: She is an obese female, lying in bed, in no acute distress. HEENT: Normocephalic, atraumatic. Anicteric. Pupils are equal, round, reactive to light. Extraocular movements intact. Oropharynx is clear. Neck: Supple. No masses. Respirations: Clear to auscultation bilaterally. Cardiac: Regular rate and rhythm. Abdomen: Positive bowel sounds. Soft, nontender, nondistended and after enema was given last night, the patient had large bowel movement. Extremities: No clubbing or cyanosis. Some mild lower extremity edema. Neuro: Alert and oriented x2 to 3. Able to move extremities somewhat well. Laboratory Data: On July 13, patient had white count of 5.5, hemoglobin 8.6 up from 7.0 on , hematocrit 26.1, MCV of 92, platelet count 263, polys 54%, lymphocytes 28%, monocytes 12%, eosinophils 4%. PT of 20.1, INR of 1.74, PTT 29.8. Her data on the , potassium 3.0, chloride 109, bicarb 30, BUN 6, creatinine of 0.36, , glucose 106, calcium 8.3, phosphorus 1.7, magnesium 1.6, albumin 1.7 on the on the , total protein 7.4, magnesium 2.1, total bilirubin 0.4, AST of 15, ALT of 11, alkaline phosphatase 78. COVID-19 testing on July 24 was negative and negative on July [address] of abdomen and pelvis on July 14 revealed sigmoid colon dilated to 9.7 cm, in good position. Mild left hydronephrosis. It appeared the sigmoid dilatation with possible ileus sigmoid dilatation 9.7 cm, improved after Fleet enema x2 and large bowel movement last night. After discussion with our service with the nurses unknown. The patient denies any melena, hematochezia, melena, coffee-grounds emesis, fevers, chills, night sweats, heat or cold intolerance, change in weight. Impression: Obstipation with sigmoid distention on CT, history of constipation. Recommendation: I gave patient Gastrografin enema and MiraLAX and restarted tube feeds after Gastrografin enema today. The patient should be on chronic constipation therapy. YAZMIN/NATE Voice ID: [id number] Report ID: [id number] ROMEO
--- NOTE | 2020-08-05 04:06 | P.DS ---
Discharge Date: 07/17/20 Primary Care Provider: Dr. Galan Disposition: TRANSFER TO SNF - REHAB Discharge Condition: GOOD Reason for Admission: UTI, hypotension, weakness Consultations: General surgeon Infectious Disease - Problems (1) Partial bowel obstruction Status: Acute (2) COPD (chronic obstructive pulmonary disease) Status: Chronic (3) DM type 2 (diabetes mellitus, type 2) Status: Chronic (4) Morbid obesity Status: Chronic (5) Proteus mirabilis infection Status: Acute (6) ESBL (extended spectrum beta-lactamase) producing bacteria infection Status: Acute Brief History of Present Illness: Patient is a 70-year-old female with history of CHF, COPD, diabetes mellitus type 2, rheumatoid arthritis presents emergency department for weakness, hypotension. Patient was transferred from our facility to [facility] on May 31 for infected kidney stone, patient has since had ureteral stenting, placement of PEG tube for nutritional purposes, has indwelling Rome catheter. Patient's blood pressure was initially low around 80s over 40s, patient was evaluated in the emergency department found to have mildly elevated white blood cell count 12.9 hemoglobin 8.7 hematocrit 26.7 pro calcitonin mildly elevated 0.28 urine significant for greater than 50 white blood cells 20-50 bacteria 3+ leuk esterase on urinalysis. CT chest abdomen pelvis significant for left ureteral stent been placed, patient noted to have duplicated left collecting system, the nondistended urinary is not dilated, and trace stranding along left anterior renal fascia which is likely reactive change related to the ureteral stent rather than stranding related pancreatitis. Lipase normal. ED provider wishes to admit for further evaluation and management of hypotension/weakness/UTI. Hospital Course: Patient was started on antibiotic therapy and IV fluids. Patient's blood pressure stabilized. Patient congestive heart failure was compensated. At this time, patient is stable for discharge with outpatient follow-up. Patient's cultures grew out Proteus mirabilis. Sensitive to Augmentin. Vital Signs/Physical Exam: Temp Pulse Resp BP Pulse Ox 98.1 F 110 H 17 144/67 H 98 07/17/20 16:00 07/17/20 16:00 07/17/20 16:00 07/17/20 16:00 07/17/20 16:00 General: Alert, In no apparent distress, Oriented x3 Laboratory Data at Discharge: WBC 5.50 K/uL (4.3-10.9) D 04/17/21 05:00 Hgb 8.6 g/dL (12.0-15.0) L 07/13/20 05:00 Hct 26.1 % (36.0-45.0) L 07/13/20 05:00 Plt Count 263 K/uL (152-406) 07/13/20 05:00 PT 20.1 SECONDS (9.5-12.5) H 07/10/20 04:03 INR 1.74 07/10/20 04:03 APTT 29.8 SECONDS (24.3-36.9) 07/10/20 04:03 Sodium 144 mmol/L (136-145) 07/17/20 09:30 Potassium 3.0 mmol/L (3.5-5.1) L 07/17/20 09:30 BUN 3 mg/dL (7-18) L 07/17/20 09:30 Creatinine 0.30 mg/dL (0.55-1.3) L 07/17/20 09:30 Glucose 76 mg/dL (74-106) 07/17/20 09:30 Phosphorus 4.1 mg/dL (2.5-4.9) D 07/15/20 16:55 Magnesium 1.8 mg/dL (1.8-2.4) 07/15/20 16:55 Total Bilirubin 0.4 mg/dL (0.2-1.0) 07/11/20 04:45 AST 15 U/L (15-37) 07/11/20 04:45 ALT 11 U/L (12-78) L 07/11/20 04:45 Alkaline Phosphatase 78 U/L (45-117) 07/11/20 04:45 Amylase 37 U/L (25-115) 07/08/20 14:55 Lipase 54 U/L (73-393) L 07/08/20 14:55 Home Medications: Albuterol Sulfate [Proair Hfa] 2 puff IH Q4HR 02/04/13 Venlafaxine HCl [Effexor XR] 150 mg PO DAILY 02/04/13 Liraglutide [Victoza 2-Walker] 1.8 mg SQ DAILY 01/30/14 carvediloL [Carvedilol] 12.5 mg PO BID 07/19/19 Famotidine [Pepcid*] 20 mg IV BID vial 07/25/19 Apixaban [Eliquis] 1 tab PO BID 07/09/20 Folic Acid 1 tab PO DAILY 07/09/20 Furosemide 1 tab PO DAILY 07/09/20 Losartan Potassium [Cozaar*] 1 tab PO DAILY 07/09/20 Mirtazapine 1 tab PO DAILY 07/09/20 Potassium Chloride [Klor-Con] 2 tab PO BID 07/09/20 Trazodone [Desyrel*] 1 tab PO DAILY 07/09/20 Jevity 1.5 Edwin Liquid 237 ml FT 5XD #120 bot 07/17/20 Magnesium Chloride [Slow-Mag] 64 mg PO DAILY #30 tab 07/17/20 Meropenem [Merrem 1 GM/100 ML NS IVPB] 1 gm IV Q12H #10 bag 07/17/20 Thiamine HCl [Vitamin B-1*] 100 mg PO DAILY #30 tablet 07/17/20 traMADol HCL [Ultram*] 50 mg PO TID PRN #30 tab 07/17/20 New Medications: Jevity 1.5 Edwin Liquid 237 ml FT 5XD #120 bot Meropenem [Merrem 1 GM/100 ML NS IVPB] 1 gm IV Q12H #10 bag Magnesium Chloride [Slow-Mag] 64 mg PO DAILY #30 tab traMADol HCL [Ultram*] 50 mg PO TID PRN #30 tab PRN Reason: Pain Scale 5-7 (Moderate) Thiamine HCl [Vitamin B-1*] 100 mg PO DAILY #30 tablet Physician Discharge Instructions: OK TO DC CARE HOME FOLLOW-UP WITH PRIMARY CARE PROVIDER IN 1-2 WEEKS FOLLOW-UP WITH NEUROLOGY IN 1-2 WEEKS RETURN TO THE ER IF symptoms worsen CALL or TEXT DR. GONZALEZ AT [phone] IF ANY QUESTIONS REGARDING HOSPITAL STAY. PLEASE CALL THE FLOOR AT [phone] IF ANY MEDICATION OR NURSING QUESTIONS. Continue taking antibiotics for 7 more days Diet: AHA Activity: Fall precautions Followup: NONE,NONE [Primary Care Provider] - Time spent managing pt's care (in minutes): 35
== END 2020-07-17 18:00 | DRG 698 ==
LOC: ER 14:21 → ERHOLD 19:12 → 4TH 21:31
PROVIDERS: ADMIT Family Medicine; ATTEND Hospitalist
PROC: 02HV33Z Insertion of Infusion Device into Superior Vena Cava, Percutaneous Approach (ICD-10-PCS; principal; 2020-07-10)
DX: T83.511A Infection and inflammatory reaction due to indwelling urethral catheter, initial encounter (principal); A41.9 Sepsis, unspecified organism; R65.21 Severe sepsis with septic shock; E43 Unspecified severe protein-calorie malnutrition; G92 Toxic encephalopathy; I50.32 Chronic diastolic (congestive) heart failure; Z16.12 Extended spectrum beta lactamase (ESBL) resistance; K59.39 Other megacolon; Z68.41 Body mass index [BMI] 40.0-44.9, adult; K56.600 Partial intestinal obstruction, unspecified as to cause; T83.592A Infection and inflammatory reaction due to indwelling ureteral stent, initial encounter; N39.0 Urinary tract infection, site not specified; E78.5 Hyperlipidemia, unspecified; I95.9 Hypotension, unspecified; J44.9 Chronic obstructive pulmonary disease, unspecified; Z79.4 Long term (current) use of insulin; Z79.899 Other long term (current) drug therapy; Z95.810 Presence of automatic (implantable) cardiac defibrillator; Z98.51 Tubal ligation status; Z88.0 Allergy status to penicillin; Z88.8 Allergy status to other drugs, medicaments and biological substances; Z93.1 Gastrostomy status; Z90.711 Acquired absence of uterus with remaining cervical stump; Z20.822 Contact with and (suspected) exposure to COVID-19; E86.0 Dehydration; B96.4 Proteus (mirabilis) (morganii) as the cause of diseases classified elsewhere; E11.649 Type 2 diabetes mellitus with hypoglycemia without coma; F32.9 Major depressive disorder, single episode, unspecified; I11.0 Hypertensive heart disease with heart failure; D72.829 Elevated white blood cell count, unspecified; D63.8 Anemia in other chronic diseases classified elsewhere; D50.9 Iron deficiency anemia, unspecified; R13.10 Dysphagia, unspecified; E66.01 Morbid (severe) obesity due to excess calories; M06.9 Rheumatoid arthritis, unspecified; L89.152 Pressure ulcer of sacral region, stage 2
CPT/HCPCS: 36415; 36430; 36569; 71045; 71260; 74018; 74177; 80048; 80053; 80076; 81003; 81015; 82150; 82550; 82553; 82947; 83036; 83605; 83690; 83735; 84100; 84132; 84145; 84484; 85014; 85018; 85025; 85610; 85730; 86850; 86900; 86901; 87040; 87077; 87086; 87088; 87186; 93005; 96361; 96374; 96375; 97110; 97112; 97161; 97530; 99285; J1644; J1940; J2185; J3475; J3480; J7030; J7040; J7799; P9016; Q9967; U0003

== ENCOUNTER 2020-09-05 14:48 | Inpatient (IN) | payer OTHER, MEDICAID ==
--- OUTSIDE RECORDS SUMMARY | 2020-09-05 14:53 | XMS REPORT | Continuity of Care Document ---
:1950 Author Organization [facility] t Address [address] [place] [address] Care Team Providers Name Role Phone Vianney [...] Effective Date Expiration Date Sour ce Number [facility] [id number] [facility] - MEDICARE MGD 00:00:00 - Medical CAREAARP/MEDICARE Center [id number] 2020-Present Problems Condition Condition Condition Status Onset [...] [facility] Std Drinks [facility] History SDOH [facility] - Alcohol Binge Medical Shira ter Sex Assigned At [facility] Tobacco use and 2020-06-20 2020-06-[address] [address] [facility] - exposure 00:00:00 00:00:00 [facility] Alcohol intake 2020-06-20 2020-06-[address] [facility] - 00:00:00 00:00:00 non-drinker Medical [place] r (finding) History SDOH 2020-06-20 2020-06-[address] [facility] - Alcohol Frequency 00:00:00 00:00:00 [facility] Smoking Status Start Date Stop Date Source Never smoker [facility] Medications [...] 1 [facility] t oxide 3-15 tablet [facility] - (MAG-OX) 00:00: (400 mg Medica l [...] 00:00: 00:00 nightly. Med ical 00 :00 [place] venlafaxine 2020- No 75mg QD Take [address] (EFFEXOR-XR 2-15 03-25 by mouth Shane es - ) 75 MG 24 00:00: 00:00 daily. Medi may hr capsule 00 :00 [place] furosemide 2020- No 1{tbl} QD Take [address] (LASIX) 20 2-15 03-15 tablet by Shane es - MG tablet 00:00: 00:00 mouth Medica l 00 :00 daily. [place] losartan 2020- No 50mg QD Take [address] (COZAAR) 50 2-15 03-15 by mouth Shane es - MG tablet 00:00: 00:00 daily. Medic al 00 :00 [place] mirtazapine 2020- No 15mg QD Take [address] (REMERON) 1-27 03-25 by mouth Lukes - 15 MG 00:00: 00:00 nightly. Medical tablet 00 :00 [place] albuterol Yes 3mL Take 3 mLs CH [...] Source Systolic blood 2020-06-20 11:15:00 123 mm[Hg] [facility] Diastolic blood 2020-06-20 11:15:00 77 mm[Hg] [facility] Heart rate 2020-06-20 11:15:00 93 /min [facility] Respiratory rate 2020-06-20 11:15:00 18 /min [facility] Body height 2020-06-20 11:15:00 162.6 cm [facility] Body weight 2020-06-20 11:15:00 107.956 kg [facility] BMI 2020-06-20 11:15:00 40.85 kg/m2 [facility] Body temperature 2020-06-10 16:00:00 36.22 Rylie [facility] Oxygen saturation in 2020-06-10 16:00:00 99 /min [facility] Arterial blood by Medical Ce nter Pulse oximetry Procedures Procedure Date / Time Performing Clinician Source Performed POCT-GLUCOSE METER 2020-06-10 12:03:00 Gaona, Jolanta [facility] POCT-GLUCOSE METER 2020-06-10 07:20:00 Gaona, Jolanta [facility] CBC (HEMOGRAM ONLY) 2020-06-10 04:52:00 Gaona, [facility] BASIC METABOLIC PANEL (7) 2020-06-10 04:52:00 Gaona, Jolanta [facility] MAGNESIUM 2020-06-10 04:52:00 Gaona, Jolanta Davis [facility] POCT-GLUCOSE METER 2020-06-09 21:01:00 [facility] PO[facility]SE METER 2020-06-09 16:32:00 Gaona, Jolanta Davis [facility] CT ABDOMEN/PELVIS WITH IV 2020-06-09 12:53:00 Gaona, Jolanta Davis [facility] POCT-GLUCOSE METER 2020-06-09 11:52:00 Gaona, Jolanta Davis [facility] SARS-COV2/RT-PCR ([facility] & 2020-06-09 10:39:00 Gaona, Jolanta Perry [facility] LABS) [facility] HEMOGLOBIN AND HEMATOCRIT 2020-06-09 10:36:00 Gaona, [facility] CBC (HEMOGRAM ONLY) 2020-06-09 04:53:00 Gaona, [facility] BASIC METABOLIC PANEL (7) 2020-06-09 04:53:00 [facility] MAGNES[facility]UM 2020-06-09 04:53:00 Gaona, Jolanta Davis [facility] HEPATIC FUNCTION PANEL 2020-06-09 04:53:00 Gaona, Jolanta [facility] POCT-GLUCOSE METER 2020-06-09 03:24:00 Gaona, [facility] PREPARE LEUKO-REDUCED RBC 2020-06-08 23:54:00 LugoWilfrid mcneil [facility] POCT-GLUCOSE METER 2020-06-08 20:17:00 Gaona, Jolanta Davis [facility] POCT-GLUCOSE METER 2020-06-08 17:08:00 Gaona, Jolanta [facility] POCT-GLUCOSE METER 2020-06-08 16:19:00 Gaona, Jolanta uSsan [facility] XR ABDOMEN / KUB 1 VIEW 2020-06-08 12:40:00 Gaona, Jolanta Davis I [facility] POCT-GLUCOSE METER 2020-06-08 11:54:00 [facility] PO[facility]SE METER 2020-06-08 11:13:00 Gaona, [facility] POCT-GLUCOSE METER 2020-06-08 10:51:00 Gaona, [facility] POCT-GLUCOSE METER 2020-06-08 10:38:00 Gaona, [facility] POCT-GLUCOSE METER 2020-06-08 08:56:00 Gaona, [facility] POCT-GLUCOSE METER 2020-06-08 08:27:00 Gaona, [facility] POCT-GLUCOSE METER 2020-06-08 07:52:00 Gaona, [facility] CBC (HEMOGRAM ONLY) 2020-06-08 06:02:00 Gaona, [facility] BASIC METABOLIC PANEL (7) 2020-06-08 06:02:00 Gaona, [facility] HEPATIC FUNCTION PANEL 2020-06-08 06:02:00 Gaona, [facility] POCT-GLUCOSE METER 2020-06-07 20:34:00 Gaona, [facility] POCT-GLUCOSE METER 2020-06-07 16:34:00 Gaona, [facility] HEMOGLOBIN AND HEMATOCRIT 2020-06-07 11:24:00 Gaona, [facility] POCT-GLUCOSE METER 2020-06-07 10:54:00 Gaona, [facility] TRANSFUSE LEUKO-REDUCED 2020-06-07 09:34:53 LugoWilfrid mcneil [facility] RED BLOOD CELLS [facility] POCT-GLUCOSE METER 2020-06-07 07:06:00 Gaona, [facility] ABORH, MANUAL 2020-06-07 04:15:00 Maira Pepper [facility] TYPE AND SCREEN, 2020-06-07 04:03:[address] [facility] US EXTREMITY NON-VASCULAR 2020-06-07 02:58:00 Wilfrid Lugo [facility] BLOOD CULTURE 2020-06-07 01:27:00 Wilfrid Lugo [facility] MAGNESIUM 2020-06-07 01:27:00 Andres [facility] PHOSPHORUS 2020-06-07 01:27:00 Andres [facility] CBC (HEMOGRAM ONLY) 2020-06-07 01:27:00 [facility] BASIC METABOLIC PANEL (7) 2020-06-07 01:27:00 [facility] POCT-GLUCOSE METER 2020-06-06 21:18:00 [facility] POCT-GLUCOSE METER 2020-06-06 17:02:00 Gaona, Jolanta [facility] MAGNESIUM 2020-06-06 13:54:00 Andres [facility] PHOSPHORUS 2020-06-06 13:54:00 Andres [facility] CBC (HEMOGRAM ONLY) 2020-06-06 13:54:00 Gaona, Jolanta [facility] BASIC METABOLIC PANEL (7) 2020-06-06 13:54:00 Gaona, [facility] POCT-GLUCOSE METER 2020-06-06 12:15:00 Gaona, [facility] POCT-GLUCOSE METER 2020-06-06 07:58:00 Gaona, [facility] PROTHROMBIN TIME/INR 2020-06-06 05:31:00 Andres [facility] POCT-GLUCOSE METER 2020-06-05 20:52:00 Gaona, [facility] POCT-GLUCOSE METER 2020-06-05 17:08:00 Gaona, Jolanta [facility] HEMOGLOBIN AND HEMATOCRIT 2020-06-05 12:04:00 Gaona, Jolanta [facility] POCT-GLUCOSE METER 2020-06-05 12:03:00 Gaona, [facility] POCT-GLUCOSE METER 2020-06-05 09:26:00 Gaona, J[facility] PROTHROMBIN TIME/INR 2020-06-05 04:25:00 Andres [facility] CBC W/PLT COUNT & AUTO 2020-06-05 03:48:00 [facility] 2020-06-05 03:48:[address] [facility] COMPREHENSIVE METABOLIC 2020-06-05 03:47:00 Andres [facility] MAGNESIUM 2020-06-05 03:47:00 Andres [facility] PHOSPHORUS 2020-06-05 03:47:00 Andres [facility] POCT-GLUCOSE METER 2020-06-04 22:17:00 [facility] MAGNESIUM 2020-06-04 22:08:00 Andres [facility] BASIC METABOLIC PANEL (7) 2020-06-04 22:08:00 Andres [facility] PHOSPHORUS 2020-06-04 22:08:00 Andres [facility] POCT-GLUCOSE METER 2020-06-04 16:32:00 Chris [facility] MAGNESIUM 2020-06-04 14:46:00 Andres [facility] PHOSPHORUS 2020-06-04 14:46:00 Andres [facility] BASIC METABOLIC PANEL (7) 2020-06-04 14:46:00 Andres [facility] POCT-GLUCOSE METER 2020-06-04 11:32:00 Mauricio Perez [facility] POCT-GLUCOSE METER 2020-06-04 06:45:00 Mauricio Perez [facility] CBC W/PLT COUNT & AUTO 2020-06-04 04:59:00 Andres [facility] COMPREHENSIVE METABOLIC 2020-06-04 04:59:00 Andres [facility] MAGNESIUM 2020-06-04 04:59:00 Andres [facility] CALCIUM, IONIZED 2020-06-04 04:59:[address] [facility] PROTHROMBIN TIME/INR 2020-06-04 04:59:00 Andres [facility] PHOSPHORUS 2020-06-04 04:59:00 Andres [facility] POCT-GLUCOSE METER 2020-06-04 02:12:00 Chris [facility] POCT-GLUCOSE METER 2020-06-03 16:17:00 [facility] PHOSPHORUS 2020-06-03 15:28:00 Deb Oliva [facility] POCT-GLUCOSE METER 2020-06-03 12:11:00 Chris [facility] EQUAL MIX, NORMAL PLASMA 2020-06-03 10:01:00 Xena Ambriz [facility] BASIC METABOLIC PANEL (7) 2020-06-03 08:58:[address] [facility] POCT-GLUCOSE METER 2020-06-03 08:57:00 Chris [facility] POCT-GLUCOSE METER 2020-06-03 06:34:00 Chris [facility] POCT-GLUCOSE METER 2020-06-03 04:03:00 Chris, [facility] CALCIUM, IONIZED 2020-06-03 03:59:00 Serkary [facility] CBC W/PLT COUNT & AUTO 2020-06-03 03:59:00 Gerald [facility] DIFFERENTIAL [facility] MAGNESIUM 2020-06-03 03:59:00 Serkary [facility] PHOSPHORUS 2020-06-03 03:59:00 Serkary [facility] COMPREHENSIVE METABOLIC 2020-06-03 03:59:00 Gerald [facility] PANEL [facility] POCT-GLUCOSE METER 2020-06-03 02:01:00 Chris [facility] POCT-GLUCOSE METER 2020-06-02 23:27:00 Chris [facility] POCT-GLUCOSE METER 2020-06-02 22:22:00 Chris [facility] POCT-GLUCOSE METER 2020-06-02 21:46:00 Chris [facility] US ABDOMEN COMPLETE 2020-06-02 21:00:00 Britney Campos [facility] POCT-GLUCOSE METER 2020-06-02 20:44:00 Chris [facility] POCT-GLUCOSE METER 2020-06-02 19:16:00 Chris [facility] BASIC METABOLIC PANEL (7) 2020-06-02 17:34:[address] [facility] POCT-GLUCOSE METER 2020-06-02 17:33:00 Chris [facility] POCT-GLUCOSE METER 2020-06-02 16:40:00 Chris [facility] FL FLUORO NON-SPECIFIC UP 2020-06-02 15:36:00 Angel Wolff [address] URINALYSIS W/ REFLEX 2020-06-02 15:35:50 [facility] URINE CULTURE 2020-06-02 15:35:00 Mariella [facility] CYSTOSCOPY,INSERTION 2020-06-02 14:41:00 [facility] POCT-GLUCOSE METER 2020-06-02 14:30:00 Chris [facility] 2D ECHO W/ DOPPLER 2020-06-02 13:11:25 Gerald Jim [facility] (CW/PW/COLOR) [facility] POCT-GLUCOSE METER 2020-06-02 13:06:00 [facility] POCT-GLUCOSE METER 2020-06-02 12:26:00 Chris [facility] POCT-GLUCOSE METER 2020-06-02 10:51:00 Chris [facility] POCT-GLUCOSE METER 2020-06-02 09:41:00 Chris [facility] BASIC METABOLIC PANEL (7) 2020-06-02 09:12:[address] [facility] POCT-GLUCOSE METER 2020-06-02 08:12:00 Chris [facility] POCT-GLUCOSE METER 2020-06-02 06:09:[address] [facility] POCT-GLUCOSE METER 2020-06-02 05:46:00 [facility] BLOOD GAS, ARTERIAL 2020-06-02 04:31:00 iJm Duarte [facility] POCT-GLUCOSE METER 2020-06-02 04:27:00 [facility] POCT-GLUCOSE METER 2020-06-02 04:04:00 [facility] CORTISOL,BASELINE 2020-06-02 03:55:00 Mauricio Zhao [facility] SARS-COV2/RT-PCR ([facility] & 2020-06-02 03:53:00 Elvin [facility] - REF LABS) [facility] IRON, TIBC, % SAT. 2020-06-02 03:44:00 [facility] (WITHOUT FERRITIN) [facility] VIT[facility] B12 AND FOLATE 2020-06-02 03:44:00 [facility] FERRITIN 2020-06-02 03:44:00 [facility] CBC W/PLT COUNT & AUTO 2020-06-02 03:43:00 Xena Ambriz [facility] BASIC METABOLIC PANEL (7) 2020-06-02 03:43:00 [facility] HEMOGLOBIN A1C 2020-06-02 03:43:00 [facility] PROTHROMBIN TIME/INR 2020-06-02 03:43:00 [facility] LACTIC ACID, VENOUS 2020-06-02 03:43:00 [facility] CALCIUM, IONIZED 2020-06-02 03:43:00 [facility] INSULIN, FASTING 2020-06-02 03:43:00 Cece Christianacareshari Garcia [facility] C-PEPTIDE 2020-06-02 03:43:00 Mauricio Zhao [facility] MAGNESIUM 2020-06-02 03:43:00 Sereniimtiaz [facility] PHOSPHORUS 2020-06-02 03:43:00 [facility],60 MIN 2020-06-02 03:43:00 [facility]ce [facility] Garcia [facility] POCT-GLUCOSE METER 2020-06-02 02:58:00 [facility] 2020-06-02 02:54:00 [facility] CORTISOL,30 MIN 2020-06-02 02:54:00 [facility] POCT-GLUCOSE METER 2020-06-02 01:53:00 [facility] POCT-GLUCOSE METER 2020-06-02 00:41:00 [facility] ECG 12-LEAD 2020-06-01 22:59:26 Unknown, Hl7 Doctor [facility] COMPREHENSIVE METABOLIC 2020-06-01 22:53:00 [facility] MAGNESIUM 2020-06-01 22:53:00 [facility] B-TYPE NATRIURETIC FACTOR 2020-06-01 22:53:00 [facility] (BNP) [facility] TROPONIN I 2020-06-01 22:53:00 Fidelia Fang [facility] CORTISOL 2020-06-01 22:53:00 [facility] TSH/FREE T4 IF INDICATED 2020-06-01 22:53:00 [facility] POCT-GLUCOSE METER 2020-06-01 22:41:00 [facility] POCT-GLUCOSE METER 2020-06-01 22:02:00 [facility] XR CHEST 1 VIEW 2020-06-01 22:00:00 [facility] ECG 12-LEAD 2020-06-01 21:34:48 [facility] CBC W/PLT COUNT & AUTO 2020-06-01 20:24:00 Xena Ambriz [facility] LACTIC ACID, VENOUS 2020-06-01 20:24:00 [facility] LACTIC ACID, VENOUS 2020-06-01 18:19:00 Arif, Lois [facility] XR CHEST 1 VIEW 2020-06-01 04:29:00 Fidelia Fang [facility]/BEDSIDE [facility] BLOOD CULTURE 2020-06-01 02:52:00 Fidelia Fang [facility] BLOOD CULTURE 2020-06-01 02:39:00 Fidelia Fang [facility] URINE CULTURE 2020-06-01 02:33:00 Fidelia Fang [facility] CBC W/PLT COUNT & AUTO 2020-06-01 02:33:00 Xena Ambriz [facility] COMPREHENSIVE METABOLIC 2020-06-01 02:33:00 Fidelia Fang [facility] PT/APTT 2020-06-01 02:33:00 Fidelia Fang [facility] LACTIC ACID, VENOUS 2020-06-01 02:33:00 Fidelia Fang [facility] URINALYSIS W/ REFLEX 2020-06-01 02:33:00 Fidelia Fang [facility] URINE CULTURE [facility] PROCALCITONIN 2020-06-01 02:33:00 Annalisa F[facility]ia [facility] Plan of Care Planned Activity Planned Date Details Comments Source Future Scheduled 2020-11-[address] [facility] Test 00:00:00 (Season Ended) [code = [facility] INFLUENZA VACCINE (Season Ended)] Future [...] 00:00:00 (1 of 1 - Medical Center [id number] PCV13) [code = PNEUMOCOCCAL 65+ YRS (1 of 1 - [id number] PCV13)] Future Scheduled 2000-01-11 SHINGLES VACCINES (1 [...] HEPATITIS C Medical Center SCREENING] Future Scheduled 1962 COVID-19 VACCINE (1) [facility] - Test 00:00:00 [code = COVID-[address] VACCINE (1)] Future Scheduled [address] [facility] - Test 00:00:00 malignant neoplasm of [facility] Center breast (procedure) [code = 019394996] Future Scheduled [address] [facility] Test 00:00:00 [facility] [code = 509356267] Encounters Start End Encounter Admission Attending Care Care Encounter Source Date/Time Date/Time Type Type Clinicians Facility Department ID 2019-09-01 2019-09-01 Outpatient Vicky SMITH [facility] [id number] [address] 08:32:00 23:59:00 [facility] Results Test Description Test Time Test Comments Results Result Comments Source Blood Culture - Routine (Left Venipuncture) 2020-06-12 07:00 :00 Test Item Value Reference Range Interpretation Comme nts Result (test code = 6463-4) No growth in 5 days [facility] [id number] 07:00:00 Test Item Value Reference Range Interpretation Comments CULTURE (BEAKER) (test No growth in 5 days code = 1095) POC-Glucose [id number] 12:15:00 Test Item Value Reference Range Interpretation Comments POC-Glucose Meter (test 68 mg/dL 70-110 L : TE STED AT [facility] code = 1538) [address] [facility], [address] 30: Freight Weigher/Techni slick ID = [id number] for CONNIE ZUNIGA E Lab Interpretation (test Abnormal code = 48409-1) [facility]SE [id number] 12:15:00 Test Item Value Reference Range Interpretation Comments POC-GLUCOSE METER 68 mg/dL 70-110 L : TESTED A T [facility] 6720 (BEAKER) (test code = TREVOR Shipley [facility], 1538) [address]: Freight Weigher/Techni slick ID = [id number] for PAIGE CAVAZOS [id number] 08:23:00 Test Item Value Reference Range Interpretation Comments Magnesium (test code = 1.6 mg/dL 1.6-2.6 85197-5) PAOLA (test code = PAOLA) Freight Weigher ID - MALINDA C Lab Interpretation (test Normal code = 09249-6) [facility]2021-03-15 08:23:00 Test Item Value Reference Range Interpretation Comments MAGNESIUM (BEAKER) (test code = 1.6 mg/dL 1.6-2.6 627) Freight Weigher ID - MALINDA CPOCT-GLUCOSE [id number] 07:32:00 Test Item Value Reference Range Interpretation Comments POC-GLUCOSE METER 74 mg/dL 70-110 : TESTED A T [facility] 6720 (BEAKER) (test code = TREVOR Shipley [facility], 1538) [address]: Freight Weigher/Techni slick ID = [id number] for DES JEWELL Basic Metabolic [id number] 05:36:00 Test Item Value Reference Range Interpretation Comments Sodium (test code = 134 meq/L 136-145 L 2951-2) Potassium (test code = 3.3 meq/L 3.5-5.1 L 2823-3) Chloride (test code = 104 meq/L 98-107 2075-0) CO2 (test code = 22 meq/L 22-29 8-9) BUN (test code = 7 mg/dL 7-21 3094-0) Creatinine (test code 0.57 mg/dL 0.57-1.25 = 2160-0) Glucose (test code = 80 mg/dL 70-105 2345-7) Calcium (test code = 8.0 mg/dL 8.4-10.2 L 11874-3) EGFR (test code = 127 mL/min/1.73 [place] [address]-9) NOT ACCURATE CREATININE CLEARANCE IN PREDICTING GLOMERULAR FILTRATION RATE . ESTIMATED GFR I S NOT APPLICABLE FOR DIALYSIS PATIENTS. PAOLA (test code = PAOLA) Freight Weigher ID - DARRELL Bassett Lab Interpretation Abnormal (test code = 41460-8) [facility] METABOLIC [id number] 05:36:00 Test Item Value Reference Range Interpretation [...] S NOT APPLICABLE FOR DIALYSIS PATIEN TS. Freight Weigher ID - DARRELL [facility] (Hemogram only)2020-06-10 05:10:00 Test Item Value Reference Range Interpretation Comments WBC (test code = 6690-2) 4.9 See_Comment [A utomated message] The system Goby generated this result transmitted ref erence range: 3.5 - 10 .5 K/L. The refe rence range was not u sed to interpret this result as normal/abnor mal. RBC (test code = 789-8) 2.55 See_Comment L [Au tomated message] The system Goby generated this result transmitted ref erence range: 3.93 - 5 .22 M/L. The refe rence range was not u sed to interpret this result as normal/abnor mal. MCHC (test code = 786-4) 31.5 See_Comment L [A utomated message] The system Goby generated this result transmitted ref erence range: [...] See_Comment [Aut omated message] 777-3) The system Goby generated this result transmitted ref erence range: 150 - 45 0 K/CU MM. The referen ce range was not u sed to interpret this result as normal/abnor mal. MPV (test code = 9.6 fL 9.4-12.3 56987-3) nRBC (test code = 413) 0 See_Comment [Aut omated message] The system Goby generated this result transmitted ref erence range: 0 - 0 /1 00 WBC. The refere nce range was not u sed to interpret this result as normal/abnor mal. Lab Interpretation (test Abnormal code = 00010-3) [facility] (HEMOGRAM ONLY)2020-06-10 05:10:00 Test Item Value [...] 0-0 (BEAKER) (test code = 413) POCT-GLUCOSE [id number] 21:12:00 Test Item Value Reference Range Interpretation Comments POC-GLUCOSE METER 93 mg/dL 70-110 : [facility] (test code = TREVOR Shipley [facility], 1538) [address]: Freight Weigher/Techni slick ID = [id number] for Chris Marte POCT-GLUCOSE [id number] 16:44:00 Test Item Value Reference Range Interpretation Comments POC-GLUCOSE METER 77 mg/dL 70-110 : [facility] ([facility]ER[facility] (test code = [facility] Violetta [facility], 1538) [address]: Freight Weigher/Techni slick ID = [id number] for FLASH BROCK SARS-CoV2/RT-PCR (Asymptomatic ONLY)2020-06-09 15:15:00 Test Item Value Reference Range Interpretation Comments SARS-COV2/RT-PCR Negative Not Detected, (test code = Negative, See 63083-1) external report for linked test SARS-COV-2 [facility] DONTAE PERFORMING LAB (test code = 49243-3) PAOLA (test code = Negative result for [...] of the Act. Fact Sheet for Healthcare Providers:https://www.Dennoo/sites/default/f lissa/product/documents/F act_Sheet_HC_Providers_L yhi_VBCY-NqX-4.pdf Fact Sheet for Healthcare Patients:https://www.Avaz/sites/default/fi les/product/documents/Fa ct_Sheet_Patients_Lyra_S ARS-CoV-2.pdf Performing Laboratory:[facility] [facility], [place] [address] [place], [place] [address]ARS-COV2/RT-PCR ([facility])2020-06-09 15:15:00 Test Item Value Reference Range Interpretation Comments SARS-COV2/RT-PCR (test Negative Not Detected, Negative, code = 7094744) See external report for linked test SARS-COV-2 PERFORMING LAB [facility] DONTAE (test code = 6573396) Negative result for this test determines that [...] 564(g) of the Act.Fact Sheet for Healthcare Providers:https://www.Brandtology.com/sites/default/files/product/documents/Fact_Shee f_YI_Matbppvie_Vopa_EJWC-CwL-3.pdfFact Sheet for Healthcare Patients:https://www.[employer].com/sites/default/files/product/ documents/Hfqh_Vewvs_Yxamhqyt_Pzmy_DLTW-UuT-0.pdfPerforming Laboratory:[facility], [place] [address]JI, [id number] 13:56:00R/o SBO, infection. Also h/o left ureteral stone s/p stent.Unlisted Reason for Exam - Click Yes and Enter Reason Below->NoWill this procedure require oral contrast?->Yes [facility] : 1950 Sex: FFINAL [...] MDReport Verified Date/Time: 06/09/2020 13:56:09 Reading Location: [place] [address] CT Body Reading Room CT abdomen/pelvis with IV [id number] 13:56:00Interface, External Ris In - 06/09/2020 1:58 [...] MDReport Verified Date/Time: 06/09/2020 13:56:09 Reading Location: [address] BodyReading Room [facility] 2020-06-09 12:05:00 Test Item Value Reference Range Interpretation Comments POC-GLUCOSE METER 74 mg/dL 70-110 : TESTED A T [facility] 6720 (BEAKER) (test code = TREVOR Shipley [facility], 1538) [address]: Freight Weigher/Techni slick ID = [id number] for FLASH BROCK Hemoglobin and [id number] 10:48:00 Test Item Value Reference Range Interpretation [...] = 4544-3) PAOLA (test code = PAOLA) Freight Weigher ID - [id number] Lab Interpretation Abnormal (test code = 61292-1) [facility] CenterHEMOGLOBIN AND [id number] 10:48:00 Test Item Value Reference Range Interpretation Comments HEMOGLOBIN (BEAKER) (test code = 8.1 GM/DL 11.2-15.7 L 410) HEMATOCRIT (BEAKER) (test code = 25.5 % 34.1-44.9 L 411) Freight Weigher ID - [id number] function [id number] 10:24:00 Test Item Value Reference Range Interpretation Comments Protein, Total (test 6.5 See_Comment [Autom ated code = 2885-2) message] The system which generated this result transmit nilesh reference range : 6.0 - 8.3 gm/dL . The reference range was not u sed to interpret th is result as normal/abnormal . Albumin (test code = 2.3 g/dL 3.5-5 L 14217-3) Total Bilirubin (test 0.3 mg/dL 0.2-1.2 code = 1975-2) Bilirubin, Direct 0.2 mg/dL 0.1-0.5 (test code = 1968-7) Alkaline Phosphatase 53 U/L 40-150 (test code = 6768-6) AST (test code = 13 U/L 5-34 1920-8) ALT (test code = 8 U/L 6-55 1742-6) PAOLA (test code = PAOLA) Freight Weigher ID - MALINDA C Lab Interpretation Abnormal (test code = 66151-8) [facility] CenterHEPATIC FUNCTION [id number] 10:24:00 Test Item Value Reference Range Interpretation [...] (test code = 8 U/L 6-55 347) Freight Weigher ID - MALINDA [id number] 09:15:00 Test Item Value Reference Range Interpretation Comments MAGNESIUM (BEAKER) (test code = 1.5 mg/dL 1.6-2.6 L 627) Freight Weigher ID - DARRELL MBASIC METABOLIC [id number] 06:02:00 Test Item Value Reference Range Interpretation [...] S NOT APPLICABLE FOR DIALYSIS PATIEN TS. Freight Weigher ID - DARRELL MCBC (HEMOGRAM ONLY)2020-06-09 05:15:00 [...] 0-0 (BEAKER) (test code = 413) POCT-GLUCOSE [id number] 03:36:00 Test Item Value Reference Range Interpretation Comments POC-GLUCOSE METER 94 mg/dL 70-110 : TESTED A T [facility] 6720 (Coinex-IOAKER) (test code = [facility] [employer] [facility], 153) [address]: Freight Weigher/Techni slick ID = [id number] for Chris Marte Prepare Leuko-Red [id number] 23:54:00 Test Item Value Reference Range Interpretation Comments CROSSMATCH (test code = 2264) COMPATIBLE Unit ABO (test code = O Pos 9143882) UNIT NUMBER (test code = [id number] 934-0) Status (test code = 8344138) [place] Blood [facility] Product (test code RED BLOOD CELLS = 2263) PRODUCT CODE (test code = I9847C20 933-2) [facility] CenterPOCT-GLUCOSE [id number] 20:29:00 Test Item Value Reference Range Interpretation Comments POC-GLUCOSE METER 103 mg/dL 70-110 : TESTED A T [facility] 6720 (BEAKER) (test code = [facility] [employer] [facility], 153) [address]: Freight Weigher/Techni slick ID = [id number] for Chris Acevedo POCT-GLUCOSE [id number] 17:20:00 Test Item Value Reference Range Interpretation Comments POC-GLUCOSE METER 86 mg/dL 70-110 : TESTED A T [facility] 6720 (BEAKER) (test code = [facility] [employer] [facility], 153) 86[address]: Freight Weigher/Techni slick ID = [id number] for Ruel Nicole POCT-GLUCOSE [id number] 16:35:00 Test Item Value Reference Range Interpretation Comments POC-GLUCOSE METER 77 mg/dL 70-110 : TESTED A T [facility] 6720 (BEAKER) (test code = TREVOR DELACRUZ [place], 1538) [address]: Freight Weigher/Techni slick ID = [id number] for BRIANNA ISREE RAD, ABDOMEN/KUB, 1 VIEW [id number] 14:06:00Reason for exam:->abdominal pain, distensionGL[facility]ITALName: [facility] : 1950 Sex: FFINAL [...] MDReport Verified Date/Time: 06/08/2020 14:06:37 Reading Location: [address] Ortho Consult ReadingRoom XR abdomen / KUB 1 [id number] 14:06:00Interface, External Ris In - 06/08/2020 2:08 [...] osseous a bnormalities identified. Signed: Demetris Eaton MDReport Verified Date/Time: 06/08/2020 14:06:37 Reading Location: [facility] B1 C013X Ortho Consult Reading [facility] [id number] 12:07:00 Test Item Value Reference Range Interpretation Comments POC-GLUCOSE METER 92 mg/dL 70-110 : TESTED A T [facility] 6720 (BEAKER) (test code = TREVOR [place], 1538) [address]: Freight Weigher/Techni slick ID = [id number] for WILL REE ASENCIO HEPATIC FUNCTION [id number] 11:28:00 Test Item Value Reference Range Interpretation [...] Specimen slightly (test code = 347) hemolyzed Freight Weigher ID - MALINDA CPOCT-GLUCOSE [id number] 11:25:00 Test Item Value Reference Range Interpretation Comments POC-GLUCOSE METER 84 mg/dL 70-110 : TESTED A T [facility] 6720 (BEAKER) (test code = [facility], [facility]) 56564: Freight Weigher/Techni slick ID = [id number] for Perc y-Uvaldo, Ruel POCT-GLUCOSE [id number] 11:05:00 Test Item Value Reference Range Interpretation Comments POC-GLUCOSE METER 56 mg/dL 70-110 L : TESTED A T [facility] 6720 (BEAKER) (test code = [facility], [facility]) 717[address]: Freight Weigher/Techni slick ID = [id number] for FLASH BROCK POCT-GLUCOSE [id number] 10:50:00 Test Item Value Reference Range Interpretation Comments POC-GLUCOSE METER 63 mg/dL 70-110 L : TESTED A T [facility] 6720 (BEAKER) (test code = [facility], [facility]) 66275: Freight Weigher/Techni slick ID = [id number] for Perc y-Uvaldo, Ruel POCT-GLUCOSE [id number] 09:08:00 Test Item Value Reference Range Interpretation Comments POC-GLUCOSE METER 51 mg/dL 70-110 L : TESTED A T [facility] 6720 (BEAKER) (test code = [facility], [facility]) 787[address]: Freight Weigher/Techni slick ID = [id number] for Perc y-Uvaldo, Ruel POCT-GLUCOSE [id number] 08:44:00 Test Item Value Reference Range Interpretation Comments POC-GLUCOSE METER 39 mg/dL 70-110 LL : TESTED A T [facility] 6720 (BEAKER) (test code = [facility], [facility]) 73589: Freight Weigher/Techni slick ID = [id number] for WILL IS, REE BASIC METABOLIC [id number] 08:29:00 Test Item Value Reference Range Interpretation [...] S NOT APPLICABLE FOR DIALYSIS PATIEN TS. Freight Weigher ID - MALINDA CPOCT-GLUCOSE [id number] 08:16:00 Test Item Value Reference Range Interpretation Comments POC-GLUCOSE METER 48 mg/dL 70-110 L : TESTED Daniel Mota [facility] 6720 (BEAKER) (test code = TREVOR [place], 1538) [address]: Freight Weigher/Techni slick ID = [id number] for REE BERNARD CBC (HEMOGRAM ONLY)2020-06-08 08:13:00 [...] 0-0 (BEAKER) (test code = 413) POCT-GLUCOSE [id number] 20:46:00 Test Item Value Reference Range Interpretation Comments POC-GLUCOSE METER 80 mg/dL 70-110 : TESTED A T [facility] 6720 (BEAKER) (test code = [facility], [facility]) 48320: Freight Weigher/Techni slick ID = [id number] for Chris Marte POCT-GLUCOSE [id number] 16:46:00 Test Item Value Reference Range Interpretation Comments POC-GLUCOSE METER 92 mg/dL 70-110 : TESTED A T [facility] 6720 (BEAKER) (test code = [facility], [facility]) 01930: Freight Weigher/Techni slick ID = [id number] for DES JEWELL POCT-GLUCOSE [id number] 12:54:00 Test Item Value Reference Range Interpretation Comments POC-GLUCOSE METER 106 mg/dL 70-110 : TESTED A T [facility] 6720 (BEAKER) (test code = [facility], [facility]) 30298: Freight Weigher/Techni slick ID = [id number] for Loida mendes (contract), Bet ty POCT-GLUCOSE [id number] 12:54:00 Test Item Value Reference Range Interpretation Comments POC-GLUCOSE METER 97 mg/dL 70-110 : TESTED A T [facility] 6720 (BEAKER) (test code = [facility], [facility]) 94074: Freight Weigher/Techni slick ID = [id number] for GRAN T, TIEARA POCT-GLUCOSE [id number] 12:53:00 Test Item Value Reference Range Interpretation Comments POC-GLUCOSE METER 112 mg/dL 70-110 H : TESTED A T [facility] 6720 (BEAKER) (test code = [facility], 153) 06986: Freight Weigher/Techni slick ID = [id number] for RACHELLE BARRY, NATHAN POCT-GLUCOSE [id number] 12:53:00 Test Item Value Reference Range Interpretation Comments POC-GLUCOSE METER 107 mg/dL 70-110 : TESTED A T [facility] 6720 (BEAKER) (test code = [facility], 1538) 79796: Freight Weigher/Techni slick ID = [id number] for Loida mendes (contract)Shana ty POCT-GLUCOSE [id number] 12:53:00 Test Item Value Reference Range Interpretation Comments POC-GLUCOSE METER 91 mg/dL 70-110 : TESTED A T [facility] 6720 (BEAKER) (test code = [facility], 1538) 22669: Freight Weigher/Techni slick ID = [id number] for BRENDA CERRATO POCT-GLUCOSE [id number] 12:53:00 Test Item Value Reference Range Interpretation Comments POC-GLUCOSE METER 113 mg/dL 70-110 H : TESTED A T [facility] 6720 (BEAKER) (test code = [facility], 1538) 42843: Freight Weigher/Techni slick ID = [id number] for Neil Fierro POCT-GLUCOSE [id number] 12:52:00 Test Item Value Reference Range Interpretation Comments POC-GLUCOSE METER 96 mg/dL 70-110 : TESTED A T [facility] 6720 (BEAKER) (test code = [facility], 153) 72963: Freight Weigher/Techni slick ID = [id number] for SALD ENRIQUE, RUEL POCT-GLUCOSE [id number] 12:52:00 Test Item Value Reference Range Interpretation Comments POC-GLUCOSE METER 73 mg/dL 70-110 : TESTED A T [facility] 6720 (BEAKER) (test code = [facility], 1538) 49305: Freight Weigher/Techni slick ID = [id number] for SALD ENRIQUE, RUEL POCT-GLUCOSE [id number] 12:52:00 Test Item Value Reference Range Interpretation Comments POC-GLUCOSE METER 76 mg/dL 70-110 : TESTED A T [facility] 6720 (BEAKER) (test code = [facility], 1538) 48184: Freight Weigher/Techni slick ID = [id number] for MARIO ALBERTO العلي POCT-GLUCOSE [id number] 12:52:00 Test Item Value Reference Range Interpretation Comments POC-GLUCOSE METER 80 mg/dL 70-110 : TESTED A T [facility] 6720 (BEAKER) (test code = [facility], 1538) 87719: Freight Weigher/Techni slick ID = [id number] for MARIO ALBERTO العلي POCT-GLUCOSE [id number] 12:52:00 Test Item Value Reference Range Interpretation Comments POC-GLUCOSE METER 89 mg/dL 70-110 : TESTED A T [facility] 6720 (BEAKER) (test code = [facility], [facility]) 40278: Freight Weigher/Techni slick ID = [id number] for MATH AI, VALSA POCT-GLUCOSE [id number] 12:52:00 Test Item Value Reference Range Interpretation Comments POC-GLUCOSE METER 82 mg/dL 70-110 : TESTED A T [facility] 6720 (BEAKER) (test code = [facility], [facility]) 56837: Freight Weigher/Techni slick ID = [id number] for PAM HERNÁNDEZA POCT-GLUCOSE [id number] 12:52:00 Test Item Value Reference Range Interpretation Comments POC-GLUCOSE METER 60 mg/dL 70-110 L : TESTED A T [facility] 6720 (BEAKER) (test code = [facility], [facility]) 66170: Freight Weigher/Techni slick ID = [id number] for MATH AI, VALSA POCT-GLUCOSE [id number] 12:52:00 Test Item Value Reference Range Interpretation Comments POC-GLUCOSE METER 244 mg/dL 70-110 H : TESTED A T [facility] 6720 (BEAKER) (test code = [facility], [facility]) 89225: Freight Weigher/Techni slick ID = [id number] for Radha cataNeil ma POCT-GLUCOSE [id number] 12:52:00 Test Item Value Reference Range Interpretation Comments POC-GLUCOSE METER 69 mg/dL 70-110 L : TESTED A T [facility] 6720 (BEAKER) (test code = [facility], [facility]) 22324: Freight Weigher/Techni slick ID = [id number] for MATH AI, VALSA HEMOGLOBIN AND [id number] 11:40:00 Test Item Value Reference Range Interpretation Comments HEMOGLOBIN (BEAKER) (test code = 7.7 GM/DL 11.2-15.7 L 410) HEMATOCRIT (BEAKER) (test code = 23.7 % 34.1-44.9 L 411) Freight Weigher ID - [id number]-GLUCOSE [id number] 11:06:00 Test Item Value Reference Range Interpretation Comments POC-GLUCOSE METER 119 mg/dL 70-110 H : TESTED A T [facility] 6720 (BEAKER) (test code = TREVOR Shipley [facility], 1538) 39811: Freight Weigher/Techni slick ID = [id number] for DES ROSALES POCT-GLUCOSE [id number] 07:18:00 Test Item Value Reference Range Interpretation Comments POC-GLUCOSE METER 79 mg/dL 70-110 : TESTED A T [facility] 6720 (BEAKER) (test code = TREVOR Shipley [facility], 1538) 00650: Freight Weigher/Techni slick ID = [id number] for THANIA ORE, DES Type and screen, [id number] 05:47:00 Test Item Value Reference Range Interpretation Comments ABO/RH AUTOMATED (BEAKER) O POSITIVE Do ne on Echo1 (test code = 2260) Ab Scrn (test code = 890-4) NEGATIVE [facility] CenterABORH, [id number] 04:40:00 Test Item Value Reference Range Interpretation Comments ABO Grouping (test code = 2588) O Rh Factor (test code = 2589) POS [facility] CenterU/S, EXTREMITY (NON-VASCULAR), RIGHT, LIMITED 2020-06-07 04:21:00Reason for exam:->PIV site, for fluid collection [facility] : 1950 Sex: FFINAL [...] Jeaneth Duarte MDReport Verified Date/Time: 06/07/2020 04:21:28 US extremity non-vascular [...] collection to suggest abscess or hematoma. Signed: Jeanteh Duarte MDReport Verified Date/Time: 06/07/2020 04:21:28 [facility] HeartPh[facility] 2020-06-07 01:55:00 Test Item Value Reference Range Interpretation Comments Phosphorus (test code = 2.9 mg/dL 2.3-4.7 2777-1) PAOLA (test code = PAOLA) Freight Weigher ID - DB Lab Interpretation (test Normal code = 97338-2) [facility] CenterBASIC METABOLIC [id number] 01:55:00 Test Item Value Reference Range Interpretation [...] S NOT APPLICABLE FOR DIALYSIS PATIEN TS. Freight Weigher ID - [id number] 01:55:00 Test Item Value Reference Range Interpretation Comments MAGNESIUM (BEAKER) (test code = 1.7 mg/dL 1.6-2.6 627) Freight Weigher ID - [id number] 01:55:00 Test Item Value Reference Range Interpretation Comments PHOSPHORUS (BEAKER) (test code = 2.9 mg/dL 2.3-4.7 604) Freight Weigher ID - DBCBC (HEMOGRAM ONLY)2020-06-07 01:50:00 Test [...] 0-0 (BEAKER) (test code = 413) POCT-GLUCOSE [id number] 21:32:00 Test Item Value Reference Range Interpretation Comments POC-GLUCOSE METER 96 mg/dL 70-110 : TESTED A T [facility] 6720 (BEAKER) (test code = TREVOR Shipley [place], 1538) 41049: Freight Weigher/Techni slick ID = [id number] for KAMALA WELL, TIA Insulin, [id number] 18:00:00 Test Item Value Reference Range Interpretation Comments Insulin, 2.8 See_Comment Risk: Optimal Fasting (test <=19.6, Modera te NA, code = 7197275) High >19.6 T his insulin shows s tim cross-reactivit y for some insulin an alogs (lispro,aspart, and glargine) and m uch lower cross-reactivit y with others (detemir,glulis ine). Adult cardiovas cular event risk jose ramon landa cut points (optimal,modera te, high) are based on [employer] population data from 02/2011. [Autom ated message] The sy stem which generated this result transmit nilesh reference range : <=19.6 uIU/mL. The reference range was not used to int erpret this result as normal/abnormal . PAOLA (test code Performing Lab = PAOLA) [facility] [employer] [address] [place] [address] Bhupinder Zhu MD, PhD, SERGIO [facility] CenterPOCT-GLUCOSE [id number] 17:14:00 Test Item Value Reference Range Interpretation Comments POC-GLUCOSE METER 89 mg/dL 70-110 : TESTED A T [facility] 6720 (BEAKER) (test code = TREVOR Shipley [place], 1538) 25887: Freight Weigher/Techni slick ID = [id number] for PAIGE CAVAZOS BASIC METABOLIC [id number] 14:21:00 Test Item Value Reference Range Interpretation [...] S NOT APPLICABLE FOR DIALYSIS PATIEN TS. Freight Weigher ID - [id number] 14:21:00 Test Item Value Reference Range Interpretation Comments MAGNESIUM (BEAKER) (test code = 1.4 mg/dL 1.6-2.6 L 627) Freight Weigher ID - [id number] 14:21:00 Test Item Value Reference Range Interpretation Comments PHOSPHORUS (BEAKER) (test code = 2.9 mg/dL 2.3-4.7 604) Freight Weigher ID - BSCBC (HEMOGRAM ONLY)2020-06-06 14:09:00 Test [...] 0-0 (BEAKER) (test code = 413) POCT-GLUCOSE [id number] 12:27:00 Test Item Value Reference Range Interpretation Comments POC-GLUCOSE METER 92 mg/dL 70-110 : TESTED A T [facility] 6720 (BEAKER) (test code = TREVOR Shipley [place], 1538) 59519: Freight Weigher/Techni slick ID = [id number] for PAIGE CAVAZOS POCT-GLUCOSE [id number] 08:11:00 Test Item Value Reference Range Interpretation Comments POC-GLUCOSE METER 73 mg/dL 70-110 : TESTED A T [facility] 6720 (BEAKER) (test code = TREVOR Shipley [facility], 1538) 65187: Freight Weigher/Techni slick ID = [id number] for PAIGE CAVAZOS Prothrombin time/[id number] 06:06:00 Test Item Value Reference Interpretation Comments Range Protime (test code = 14.3 See_Comment H [Autom ated 5902-2) message] The system which generated this result transmitted reference range : 11.9 - 14.2 seconds. The reference range was not used to interpret this result as normal/abnormal . INR (test code = 1.15 See_Comment [Automated 3771-6) message] The system which generated this result [...] valves. Lab Interpretation Abnormal (test code = 55152-7) [facility] CenterPROTHROMBIN TIME/[id number] 06:06:00 Test Item Value Reference Range Interpretation Comments PROTIME (BEAKER) 14.3 seconds 11.9-14.2 H (test code = 759) INR (BEAKER) (test 1.15 See_Comment [Automat ed message] code = 370) The system G[employer] generated this result transmitted ref erence range: <=5.90. The reference range was not used to int erpret this result as normal/abnormal . Effective 08/24/2018: PT Reference Range ChangeNew: 11.9-14.2 Previous: 11.7- 14.7RECOMMENDED COUMADIN/WARFARIN INR THERAPY RANGESSTANDARD DOSE: 2.0-3.0 Includes: PROPHYLAXIS for venous thrombosis, systemic embolization; TREATMENT for venous thrombosis and/or pulmonary embolus.HIGH RISK: Target INR is2.5-3.5 for patients wiht mechanical heart valves.BLOOD [id number] 05:01:00 Test Item Value Reference Range Interpretation Comments CULTURE (BEAKER) (test No growth in 5 days code = 1095) BLOOD [id number] 05:01:00 Test Item Value Reference Range Interpretation Comments CULTURE (BEAKER) (test No growth in 5 days code = 1095) POCT-GLUCOSE [id number] 21:05:00 Test Item Value Reference Range Interpretation Comments POC-GLUCOSE METER 91 mg/dL 70-110 : TESTED A T [facility] 6720 (BEAKER) (test code = [facility] [employer] [facility], 1538) 45711: Freight Weigher/Techni slick ID = [id number] for ADRIEL BEVERLY POCT-GLUCOSE [id number] 17:19:00 Test Item Value Reference Range Interpretation Comments POC-GLUCOSE METER 100 mg/dL 70-110 : TESTED A T [facility] 6720 (BEAKER) (test code = [employer] [facility], 1538) 80548: Freight Weigher/Techni slick ID = [id number] for PAIGE HOLLOWAY [id number]-[id number] 14:19:00 Test Item Value Reference Range Interpretation Comments C-Peptide (test 2.05 ng/mL 0.8-3.85 code = 1505892) PAOLA (test code = Performing Lab EZ PAOLA) [employer] [facility] [address] [place] [address] Bhupinder Zhu MD, PhD, SERGIO [facility] CenterHEMOGLOBIN AND [id number] 12:17:00 Test Item Value Reference Range Interpretation Comments HEMOGLOBIN (BEAKER) (test code = 7.3 GM/DL 11.2-15.7 L 410) HEMATOCRIT (BEAKER) (test code = 23.2 % 34.1-44.9 L 411) Freight Weigher ID - [id number]-GLUCOSE [id number] 12:15:00 Test Item Value Reference Range Interpretation Comments POC-GLUCOSE METER 103 mg/dL 70-110 : TESTED A T [facility] 6720 (BEAKER) (test code = TRE[place]OR [place], 1538) 60397: Freight Weigher/Techni slick ID = [id number] for PAIGE HOLLOWAY POCT-GLUCOSE [id number] 09:38:00 Test Item Value Reference Range Interpretation Comments POC-GLUCOSE METER 85 mg/dL 70-110 : TESTED A T [facility] 6720 (BEAKER) (test code = TREVOR Shipley [facility], 1538) 64048: Freight Weigher/Techni slick ID = [id number] for PAIGE CAVAZOS PROTHROMBIN TIME/[id number] 04:58:00 Test Item Value Reference Range Interpretation Comments PROTIME (BEAKER) 15.1 seconds 11.9-14.2 H (test code = 759) INR (LUCAAKER) (test 1.23 See_Comment [Automat ed message] code = 370) The system Goby generated this result transmitted ref erence range: <=5.90. The reference range was not used to int erpret this result as normal/abnormal . Effective 08/24/2018: PT Reference Range ChangeNew: 11.9-14.2 Previous: 11.7- 14.7RECOMMENDED COUMADIN/WARFARIN INR THERAPY RANGESSTANDARD DOSE: 2.0-3.0 Includes: PROPHYLAXIS for venous thrombosis, systemic embolization; TREATMENT for venous thrombosis and/or pulmonary embolus.HIGH RISK: Target INR is2.5-3.5 for patients wiht mechanical heart valves.Calcium, [id number] 04:32:00 Test Item Value Reference Range Interpretation Comments Calcium, Ion (test code = 1993-3) 1.05 mmol/L 1.12-1.27 L pH, Blood (test code = 00899-1) 7.38 Lab Interpretation (test code = Abnormal 02744-7) [facility] CenterCALCIUM, [id number] 04:32:00 Test Item Value Reference Range Interpretation Comments CALCIUM IONIZED (BEAKER) (test 1.05 mmol/L 1.12-1.27 L code = 698) PH, BLOOD (BEAKER) (test code = 7.38 1810) Comprehensive metabolic [id number] 04:18:00 Test Item Value Reference Range Interpretation Comments Protein, Total (test 6.2 See_Comment [Autom ated code = 2885-2) message] The system which generated this result transmit nilesh reference range : 6.0 - 8.3 gm/dL . The reference range was not u sed to interpret th is result as normal/abnormal . Albumin (test code = 2.4 g/dL 3.5-5 L 86469-7) Alkaline Phosphatase 55 U/L 40-150 (test code = 6768-6) Total Bilirubin (test 0.3 mg/dL 0.2-1.2 code = 1975-2) Sodium (test code = 140 meq/L 217-881 7366-2) Potassium (test code 4.2 meq/L 3.5-5.1 = 2823-3) Chloride (test code = 109 meq/L 98-107 H 2075-0) CO2 (test code = 26 meq/L 22-29 2028-9) BUN (test code = 7 mg/dL 7-21 3094-0) Creatinine (test code 0.70 mg/dL 0.57-1.25 = 2160-0) Glucose (test code = 99 mg/dL 70-105 2345-7) Calcium (test code = 8.2 mg/dL 8.4-10.2 L 55001-0) AST (test code = 15 U/L 5-34 1920-8) ALT (test code = 8 U/L 6-55 1742-6) EGFR (test code = 100 mL/min/1.73 [place] [address]-4) NOT ACCURATE CREATININE CLEARANCE IN PREDICTING GLOMERULAR FILTRATION RATE . ESTIMATED GFR I S NOT APPLICABLE FOR DIALYSIS PATIEN PAOLA (test code = PAOLA) Freight Weigher ID - Lab Interpretation Abnormal (test code = 32336-6) [facility] CenterCOMPREH[facility]IVE METABOLIC [id number] 04:18:00 Test Item Value Reference Range Interpretation [...] S NOT APPLICABLE FOR DIALYSIS PATIEN TS. Freight Weigher ID - [id number] 04:18:00 Test Item Value Reference Range Interpretation Comments MAGNESIUM (BEAKER) (test code = 2.0 mg/dL 1.6-2.6 627) Freight Weigher ID - [id number] 04:18:00 Test Item Value Reference Range Interpretation Comments PHOSPHORUS (BEAKER) (test code = 2.0 mg/dL 2.3-4.7 L 604) Freight Weigher ID - ASCBC with platelet count + automated [id number] 04:09:00 Test Item Value Reference Range Interpretation Comments WBC (test code = 6690-2) 4.4 See_Comment [A utomated message] The system Sellywhere generated this result transmitted ref erence range: 3.5 - 10 .5 K/L. The refe rence range was not u sed to interpret this result as normal/abnor mal. RBC (test code = 789-8) 2.32 See_Comment L [Au tomated message] The system Sellywhere generated this result transmitted ref erence range: 3.93 - 5 .22 M/L. The refe rence range was not u sed to interpret this result as normal/abnor mal. MCHC (test code = 786-4) 31.0 See_Comment L [A utomated message] The system Goby generated this result transmitted ref erence range: [...] L [Aut omated message] 777-3) The system Goby generated this result transmitted ref erence range: 150 - 45 0 K/CU MM. The referen ce range was not u sed to interpret this result as normal/abnor mal. MPV (test code = 10.7 fL 9.4-12.3 59092-6) nRBC (test code = 413) 0 See_Comment [Aut omated message] The system Goby generated this result transmitted ref erence range: [...] See_Comment [Aut omated message] 670) The system Goby generated this result transmitted ref erence range: 1.56 - 6 .13 K/L. The refe rence range was not u sed to interpret this result as normal/abnor mal. # Lymphs (test code = 1.41 See_Comment [Auto mated message] 414) The system Goby generated this result transmitted ref erence range: 1.18 - 3 .74 K/L. The refe rence range was not u sed to interpret this result as normal/abnor mal. # Monos (test code = 0.44 See_Comment H [Autom ated message] 415) The system Goby generated this result transmitted ref erence range: 0.24 - 0 .36 K/L. The refe rence range was not u sed to interpret this result as normal/abnor mal. # Eos (test code = 416) 0.06 See_Comment [Au tomated message] The system Goby generated this result transmitted ref erence range: 0.04 - 0 .36 K/L. The refe rence range was not u sed to interpret this result as normal/abnor mal. # Baso (test code = 417) 0.01 See_Comment [A utomated message] The system Goby generated this result transmitted ref erence range: 0.01 - 0 .08 K/L. The refe rence range was not u sed to interpret this result as normal/abnor mal. Immature 1 % 0-1 Granulocytes-Relative (test code = 2801) Lab Interpretation (test Abnormal code = 40197-9) [facility] W/PLT COUNT & AUTO [id number] 04:09:00 Test Item Value Reference Range Interpretation [...] (BEAKER) (test code = 2801) BASIC METABOLIC [id number] 22:44:00 Test Item Value Reference Range Interpretation [...] S NOT APPLICABLE FOR DIALYSIS PATIEN TS. Freight Weigher ID - [id number] 22:44:00 Test Item Value Reference Range Interpretation Comments MAGNESIUM (BEAKER) (test code = 3.0 mg/dL 1.6-2.6 H 627) Freight Weigher ID - [id number] 22:44:00 Test Item Value Reference Range Interpretation Comments PHOSPHORUS (BEAKER) (test code = 2.4 mg/dL 2.3-4.7 604) Freight Weigher ID - BSBASIC METABOLIC [id number] 15:25:00 Test Item Value Reference Range Interpretation [...] S NOT APPLICABLE FOR DIALYSIS PATIEN TS. Freight Weigher ID - [id number] 15:25:00 Test Item Value Reference Range Interpretation Comments MAGNESIUM (BEAKER) (test code = 1.3 mg/dL 1.6-2.6 L 627) Freight Weigher ID - [id number] 15:25:00 Test Item Value Reference Range Interpretation Comments PHOSPHORUS (BEAKER) (test code = 2.3 mg/dL 2.3-4.7 604) Freight Weigher ID - BSPOCT-GLUCOSE [id number] 11:44:00 Test Item Value Reference Range Interpretation Comments POC-GLUCOSE METER 140 mg/dL 70-110 H : TESTED A T [facility] 6720 (BEAKER) (test code = [place], 1538) [address]: Freight Weigher/Techni slick ID = [id number] for BRNEDA LOPEZ Urine [id number] 11:41:00 Test Item Value Reference Range Interpretation Comments Result (test code = <10,000 col/mL Same A R efer to 6463-4) organism has been previous isolated from culture cultures(s) of the ofProteus same body site mirabilis within 3 days. Repeat identification and susceptibility testing performed only after consultation with the clinical microbiology laboratory. Lab Interpretation Abnormal (test code = 73691-0) [facility] CenterCOMPRE[facility]IVE MET[facility] [id number] 05:53:00 Test Item Value Reference Range Interpretation [...] S NOT APPLICABLE FOR DIALYSIS PATIEN TS. Freight Weigher ID - MARCI [id number] 05:53:00 Test Item Value Reference Range Interpretation Comments MAGNESIUM (BEAKER) (test code = 1.4 mg/dL 1.6-2.6 L 627) Freight Weigher ID - MARCI [id number] 05:53:00 Test Item Value Reference Range Interpretation Comments PHOSPHORUS (BEAKER) (test code = 1.7 mg/dL 2.3-4.7 L 604) Freight Weigher ID - WILLIAMNATAN LPROTHROMBIN [id number] 05:48:00 Test Item Value Reference Range Interpretation Comments PROTIME (BEAKER) 16.6 seconds 11.9-14.2 H (test code = 759) INR (BEAKER) (test 1.39 See_Comment [Automat ed message] code = 370) The system Goby generated this result transmitted ref erence range: <=5.90. The reference range was not used to int erpret this result as normal/abnormal . Effective 08/24/2018: PT Reference Range ChangeNew: 11.9-14.2 Previous: 11.7- 14.7RECOMMENDED COUMADIN/WARFARIN INR THERAPY RANGESSTANDARD DOSE: 2.0-3.0 Includes: PROPHYLAXIS for venous thrombosis, systemic embolization; TREATMENT for venous thrombosis and/or pulmonary embolus.HIGH RISK: Target INR is2.5-3.5 for patients wiht mechanical heart valves.CALCIUM, [id number] 05:41:00 Test Item Value Reference Range Interpretation Comments CALCIUM IONIZED (BEAKER) (test 1.10 mmol/L 1.12-1.27 L code = 698) PH, BLOOD (BEAKER) (test code = 7.46 1810) CBC W/PLT COUNT & AUTO [id number] 05:30:00 Test Item Value Reference Range Interpretation [...] 0-1 PERCENT (BEAKER) (test code = 2801) [id number] 15:50:00 Test Item Value Reference Range Interpretation Comments PHOSPHORUS (BEAKER) (test code = 2.5 mg/dL 2.3-4.7 604) Freight Weigher ID - ABAD FPOCT-GLUCOSE [id number] 12:22:00 Test Item Value Reference Range Interpretation Comments POC-GLUCOSE METER 110 mg/dL 70-110 : TESTED A T [facility] 6720 (BEAKER) (test code = [place], 1538) [address]: Freight Weigher/Techni slick ID = [id number] for CECILIO BECKMANMARIO ALBERTO 1:1 MIXING STUDY, [id number] 10:27:00 Test Item Value Reference Range Interpretation Comments Protime (test code = 18.7 See_Comment H [Autom ated message] 1692-2) The system Goby generated this result transmitted ref erence range: 11.9 - 1 4.2 seconds. The reference range was not used to int erpret this result as normal/abnormal . PTT (test code = 43.0 See_Comment H [Automated message] 58726-3) The system Goby generated this result transmitted ref erence range: 22.5 - 3 6.0 seconds. The reference range was not used to int erpret this result as normal/abnormal . PT 03/29 Mix (test code = 14.7 See_Comment [Au tomated message] 7282) The system Goby generated this result transmitted ref erence range: 11.7 - 1 4.7 SECS. The refer ence range was not u sed to interpret this result as normal/abnor mal. PTT 03/29 Mix (test code = 32.9 See_Comment [A utomated message] 0711) The system Goby generated this result transmitted ref erence range: 22.5 - 3 6.0 SECS. The refer ence range was not u sed to interpret this result as normal/abnor mal. Lab Interpretation (test Abnormal code = 01821-3) [facility]1:1 MIXING STUDY, [id number] 10:27:00 Test Item Value Reference Range Interpretation Comments PROTIME (BEAKER) (test code = 18.7 seconds 11.9-14.2 H 759) PARTIAL THROMBOPLASTIN TIME 43.0 seconds 22.5-36.0 H (BEAKER) (test code = 760) PT 1/1 MIX (BEAKER) (test code = 14.7 SECS 11.7-14.7 1595) PTT 1/1 MIX (BEAKER) (test code 32.9 SECS 22.5-36.0 = 1596) BASIC METABOLIC [id number] 09:49:00 Test Item Value Reference Range Interpretation [...] S NOT APPLICABLE FOR DIALYSIS PATIEN TS. Freight Weigher ID - ABAD FOperator ID - ABAD FECG 12 [id number] 09:26:40 Interface, External Ris In - 06/03/2020 9:26 AM CSTVentricular Rate 91 BPMAtrial Rate 91 BPMP-R Interval 196 msQRS Duration 86 msQ-T Interval 372 msQTC Calculation(Bazett) 457 msP Sabin 45 degreesR Sabin -29 degreesT Sabin 121 degreesNormal sinus rhythmST depression in I, aVL, V2 consider ischemiaAbnormal ECGWhen compared with ECG of 01-JUN-2020 21:34,QRS axis Shifted leftMild ST depression now seen inI, aVL, H2Ukcngsptt by MD MICAH, MALIA ([id number]) on 06/03/2020 9:26:38 [facility] HeartPO[facility]SE [id number] 09:08:00 Test Item Value Reference Range Interpretation Comments POC-GLUCOSE METER 123 mg/dL 70-110 H : TESTED A T [facility] (BEAKER) (test code = [place], 1538) [address]: Freight Weigher/Techni slick ID = [id number] for MARIO ALBERTO RAJAN CALCIUM, [id number] 04:51:00 Test Item Value Reference Range Interpretation Comments CALCIUM IONIZED (BEAKER) (test 1.11 mmol/L 1.12-1.27 L code = 698) PH, BLOOD (BEAKER) (test code = 7.40 1810) COMPREHENSIVE METABOLIC [id number] 04:45:00 Test Item Value Reference Range Interpretation [...] S NOT APPLICABLE FOR DIALYSIS PATIEN TS. Freight Weigher ID - [id number] 04:45:00 Test Item Value Reference Range Interpretation Comments MAGNESIUM (BEAKER) (test code = 1.8 mg/dL 1.6-2.6 627) Freight Weigher ID - [id number] 04:45:00 Test Item Value Reference Range Interpretation Comments PHOSPHORUS (BEAKER) (test code = 1.7 mg/dL 2.3-4.7 L 604) Freight Weigher ID - EDASICBC W/PLT COUNT & AUTO [id number] 04:31:00 Test Item Value Reference Range Interpretation [...] PERCENT (BEAKER) (test code = 2801) POCT-GLUCOSE [id number] 04:14:00 Test Item Value Reference Range Interpretation Comments POC-GLUCOSE METER 304 mg/dL 70-110 H : TESTED A T [facility] (BEAKER) (test code = EMETERIOJOHNNY Shipley [facility], 1538) [address]: Freight Weigher/Techni slick ID = [id number] for Neil Fierro U/S, ABDOMINAL, [id number] 00:31:00Reason for exam:->elevated INRShould this be performed at the bedside?->Yes [facility] : 1950 Sex: FFINAL [...] MDReport Verified Date/Time: 06/03/2020 00:31:42 US abdomen [id number] 00:31:00Interface, External Ris In - 06/03/2020 12:33 [...] Jeaneth Duarte MDReport Verified Date/Time: 06/03/2020 00:31:42 [facility] HeartPOCT-GLUCOSE [id number] 23:38:00 Test Item Value Reference Range Interpretation Comments POC-GLUCOSE METER 101 mg/dL 70-110 : TESTED A T [facility] 6720 (BEAKER) (test code = [facility], 153) [address]: Freight Weigher/Techni slick ID = [id number] for NATHAN VYAS POCT-GLUCOSE [id number] 22:34:00 Test Item Value Reference Range Interpretation Comments POC-GLUCOSE METER 118 mg/dL 70-110 H : TESTED A T [facility] 6720 (BEAKER) (test code = [facility], 1538) [address]: Freight Weigher/Techni slick ID = [id number] for Neil Fierro POCT-GLUCOSE [id number] 21:58:00 Test Item Value Reference Range Interpretation Comments POC-GLUCOSE METER 79 mg/dL 70-110 : TESTED A T [facility] 6720 (BEAKER) (test code = [facility], 1538) 238[address]: Freight Weigher/Techni slick ID = [id number] for NATHAN LLOYD BASIC METABOLIC [id number] 18:05:00 Test Item Value Reference Range Interpretation [...] S NOT APPLICABLE FOR DIALYSIS PATIEN TS. Freight Weigher ID - DBPOCT-GLUCOSE [id number] 17:45:00 Test Item Value Reference Range Interpretation Comments POC-GLUCOSE METER 81 mg/dL 70-110 : TESTED A T [facility] ([facility]) (test code = [place], 1538) [address]: Freight Weigher/Techni slick ID = [id number] for BRIS RAJAT, MARIO ALBERTO FL, FLUORO, NON-SPECIFIC, UP TO 1 [id number] 16:31:00Reason for exam:->[facility] : 1950 Sex: FFINAL [...] Leger Verified Date/Time: 06/02/2020 16:31:11 Reading Location: [facility] C013X Ortho Consult Reading Room [place] fluoro non-specific up to 1 [id number] 16:31:00 Interface, External Ris In - 06/02/2020 4:33 PM CSTFINAL REPORT Retrograde Pyelography Clinical History: cystoscopy Impression: Intraoperative images are obtained. The radiologist is not present during the procedure. Images are presented for interpretation at the completion of the procedure. Please refer to the procedure report for more details. Number of images obtained: 31Fluoroscopy time: Not provided. Signed: Víctor Leger Verified Date/Time: 06/02/2020 16:31:11 Reading Location: [facility] C013X [facility]o [facility] Reflex to [id number] 16:08:00 Test Item Value Reference Range Interpretation Comments Color, UA (test code Light Yellow = 5778-6) Clarity, UA (test Hazy code = 5767-9) Specific [place], UA 1.008 1.001-1.035 (test code = 5811-5) pH, UA (test code = 5.5 5.0-8.0 5803-2) Protein, UA (test 10 mg/dL Negative A code = 27206-4) Glucose, UA (test Negative Negative code = 365) Ketones, UA (test Negative Negative code = 2514-8) Bilirubin, UA (test Negative Negative code = 86236-8) Blood, UA (test code Large Negative A = 19724-8) Nitrite, UA (test Negative Negative code = 5802-4) Leukocytes, UA (test Large Negative A code = 5799-2) Urobilinogen, UA 0.2 mg/dL 0.2-1 (test code = 44015-2) RBC, UA (test code = 0 See_Comment [Autom ated 15617-9) message] The system which generated this result [...] . Bacteria, UA (test Many code = 94508-9) Mucus (test code = Rare 8247-9) Squam Epithel, UA <1 See_Comment [Automate d (test code = 42182-4) messag e] The system which generated this result transmit nilesh reference range : /HPF. The reference range was not used to interpret this result as normal/abnormal . Hyaline Casts, UA 8 See_Comment [Automate d (test code = 76723-4) messag e] The system which generated this result transmit nilesh reference range : /LPF. The reference range was not used to interpret this result as normal/abnormal . Crystals, Urine (test Few code = 99049-7) Specimen Source (test code = 2795) PAOLA (test code = PAOLA) Freight Weigher ID - [auto]Freight Weigher ID - tech Lab Interpretation Abnormal (test code = 94153-8) [facility] CenterURINALYSIS W/ REFLEX URINE [id number] 16:08:00 Test Item Value Reference Range Interpretation [...] code = 1521) SOURCE(BEAKER) (test code = 5815) Freight Weigher ID - [auto]Freight Weigher ID - [email or web address] Echo W/Doppler(CW/PW/Color)2020-06-02 16:00:00Ejection FractionSLEH ECHO HEARTLAB MKCKESSON CPACSInterface, External Ris In - 06/02/2020 4:00 PM CSTTransthoracic Echocardiography Report (TTE) Demographics Patient Name EMIL COVARRUBIAS Date of Study 06/02/2020 Gender Female Visit Number 2 [id number] Race Black Accession Number [id number] Room Number 7216 Date of 1950 Referring Physician Age 70 year(s) SonographerAjulianne Brooks [facility] 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, 1538) [address]: Freight Weigher/Techni slick ID = [id number] for BRIS RAJAT, MARIO ALBERTO POCT-GLUCOSE [id number] 13:17:00 Test Item Value Reference Range Interpretation Comments POC-GLUCOSE METER 84 mg/dL 70-110 : TESTED A T [facility] 6720 (BEAKER) (test code = [facility], 1538) [address]: Freight Weigher/Techni slick ID = [id number] for BRIS RAJAT, MARIO ALBERTO POCT-GLUCOSE [id number] 12:38:00 Test Item Value Reference Range Interpretation Comments POC-GLUCOSE METER 85 mg/dL 70-110 : TESTED A T [facility] 6720 (BEAKER) (test code = [facility], 1538) 565[address]: Freight Weigher/Techni slick ID = [id number] for BRIS RAJAT, MARIO ALBERTO POCT-GLUCOSE [id number] 11:03:00 Test Item Value Reference Range Interpretation Comments POC-GLUCOSE METER 92 mg/dL 70-110 : TESTED A T [facility] 6720 (BEAKER) (test code = [place], 1538) [address]: Freight Weigher/Techni slick ID = [id number] for MARIO ALBERTO العلي SARS-COV2/RT-PCR ([facility])2020-06-02 10:54:00 Test Item Value Reference Range Interpretation Comments SARS-COV2/RT-PCR (test Negative Not Detected, Negative, code = 5467964) See external report for linked test SARS-COV-2 PERFORMING LAB [facility] (test code = 9169993) Negative result for this test determines that [...] 564(g) of the Act.Fact Sheet for Healthcare Providers:https://www.Brandtology.AviantLogic/sites/default/files/product/documents/Fact_Shee u_DQ_Ryslnbmzo_Hrsp_AVEY-PwL-1.pdfFact Sheet for Healthcare Patients:https://www.Brandtology.[employer]/sites/default/files/product/ documents/Gzfi_Jqasw_Ivsjcegt_Qryw_UHWZ-VeB-3.pdfPerforming Laboratory:[facility], [place] [address]Pstxgatckp A1c 2020-06-02 10:37:00 Test Item Value Reference Range Interpretation Comments Hemoglobin A1C (test code = 4548-4) 4.3 % 4.3-6.1 Lab Interpretation (test code = Normal 75330-1) [facility] CenterHEMOGLOBIN [id number] 10:37:00 Test Item Value Reference Range Interpretation Comments HEMOGLOBIN A1C (BEAKER) (test code = 4.3 % 4.3-6.1 368) POCT-GLUCOSE [id number] 09:53:00 Test Item Value Reference Range Interpretation Comments POC-GLUCOSE METER 112 mg/dL 70-110 H : TESTED A T [facility] 6720 (BEAKER) (test code = TREVOR R [facility], 1538) [address]: Freight Weigher/Techni slick ID = [id number] for MARIO ALBERTO RAJAN Blood gas, [id number] 09:40:00 Test Item Value Reference Range Interpretation Comments pH, Arterial (test code 7.37 7.35-7.45 = 2744-1) pCO2, Arterial (test 49 See_Comment H [Autom ated message] code = 2019-8) The system [employer] generated this result transmit nilesh reference range : 35 - 45 mm Hg. The reference range was not used to interpret this result as normal/abnormal . pO2, Arterial (test 153 See_Comment H [Automa nilesh message] code = 2703-7) The system [employer] generated this result transmit nilesh reference range [...] 21 Lab Interpretation Abnormal (test code = 84669-8) [facility] CenterBASI METABOLIC [id number] 09:40:00 Test Item Value Reference Range Interpretation [...] S NOT APPLICABLE FOR DIALYSIS PATIEN TS. Freight Weigher ID - EDASIBLOOD GAS, [id number] 09:40:00 Test Item Value Reference Range Interpretation [...] (BEAKER) (test code = 1819) 21.0 POCT-GLUCOSE [id number] 08:24:00 Test Item Value Reference Range Interpretation Comments POC-GLUCOSE METER 84 mg/dL 70-110 : TESTED A T [facility] 6720 (BEAKER) (test code = [place], 1538) [address]: Freight Weigher/Techni slick ID = [id number] for MARIO ALBERTO العلي [id number] 07:01:00 Test Item Value Reference Range Interpretation Comments MAGNESIUM (BEAKER) (test code = 1.9 mg/dL 1.6-2.6 627) Freight Weigher ID - [id number] 07:01:00 Test Item Value Reference Range Interpretation Comments PHOSPHORUS (BEAKER) (test code = 1.7 mg/dL 2.3-4.7 L 604) Freight Weigher ID - EDASIPOCT-GLUCOSE [id number] 05:59:00 Test Item Value Reference Range Interpretation Comments POC-GLUCOSE METER 99 mg/dL 70-110 : [facility] (test code = EMETERIOGA Violetta [facility], 1538) [address]: Freight Weigher/Techni slick ID = [id number] for Neil Pham [id number] 05:48:00 Test Item Value Reference Range Interpretation Comments Ferritin (test code = 607.07 ng/mL 5-275 H 2276-4) PAOLA (test code = PAOLA) Freight Weigher ID - EDASI Lab Interpretation (test Abnormal code = 18935-0) [facility] CenterVitamin B12 and [id number] 05:48:00 Test Item Value Reference Range Interpretation Comments Vitamin B12 (test 562 pg/mL 213-816 code = 2132-9) Folate (test code = 3.30 ng/mL See_Comment L [Automa nilesh 2284-8) message] The system which generated this result transmit nilesh reference range : >=7.00. The reference range was not used to interpret this result as normal/abnormal . PAOLA (test code = PAOLA) Freight Weigher ID - EDASI Lab Interpretation Abnormal (test code = 45439-0) [facility] CenterFERRITIN2021-03-07 05:48:00 Test Item Value Reference Range Interpretation Comments FERRITIN (BEAKER) (test code = 607.07 ng/mL 5.00-275.00 H 361) Freight Weigher ID - EDASIVITAMIN B12 AND [id number] 05:48:00 Test Item Value Reference Range Interpretation Comments VITAMIN B12 (BEAKER) 562 pg/mL 213-816 (test code = 774) FOLATE (BEAKER) 3.30 ng/mL See_Comment L [Automated message] (test code = 362) The system which generated this result transmitted ref erence range: >=7.00. The reference range was not used to interpr et this result as normal/abnormal . Freight Weigher ID - CHANTALEISODarrius,60 [id number] 05:35:00 Test Item Value Reference Range Interpretation Comments Cortisol, Baseline 8.5 mcg/dL (test code = 44385-0) Cortisol 30 minute 15.4 mcg/dL (test code = 06178-5) Cortisol, 60 23.1 ug/dL Minute (test code = 78168-9) PAOLA (test code = ACTH STIMULATION TEST [...] Policy and Procedure Section on The Source. Freight Weigher ID - DARRELL Bassett [facility] CenterCORT[facility]OL,60 [id number] 05:35:00 Test Item Value Reference Range Interpretation [...] Pharmacy Policy and Procedure Section on The Source.Freight Weigher ID - DARRELL MCORTISOL,30 MIN 2020-06-02 05:34:00 Test Item Value Reference Range Interpretation Comments Cortisol, Baseline 8.5 mcg/dL (test code = 04655-2) Cortisol, 30 15.4 ug/dL Minute (test code = 87135-2) PAOLA (test code = ACTH STIMULATION TEST [...] Policy and Procedure Section on The Source. Freight Weigher ID - DARRELL M [facility] CenterCORTISOL,30 [id number] 05:34:00 Test Item Value Reference Range Interpretation [...] Pharmacy Policy and Procedure Section on The Source.Freight Weigher ID - DARRELL MCORTISOL,BASELINE 2020-06-02 05:33:00 Test [...] Policy and Procedure Section on The Source. [facility] CenterCORTISOL,[id number] 05:33:00 Test Item Value Reference Range Interpretation [...] a study by Dejan et al (JOEY 2000,283(8):3103-45), the ACTH Stimulation Test provides important prognostic [...] = 2502-3) PAOLA (test code = PAOLA) Freight Weigher ID - EDASI Lab Interpretation (test Abnormal code = 42872-2) [facility] CenterIRON, TIBC, % SAT. (WITHOUT FERRITIN)2020-06-02 05:13:00 Test Item Value Reference Range Interpretation Comments IRON (BEAKER) (test code = 547) 37.0 ug/dL 40.0-160.0 L TOTAL IRON BINDING CAPACITY 106 ug/dL 250-450 L (BEAKER) (test code = 769) IRON % SATURATION (2) (BEAKER) 35 % 20-55 (test code = 2850) Freight Weigher ID - EDASIPROTHROMBIN TIME/[id number] 04:40:00 Test Item Value Reference Range Interpretation Comments PROTIME (BEAKER) 24.3 seconds 11.9-14.2 H (test code = 759) INR (BEAKER) (test 2.25 See_Comment [Automat ed message] code = 370) The system G[employer] generated this result transmitted ref erence range: <=5.90. The reference range was not used to int erpret this result as normal/abnormal . Effective 08/24/2018: PT Reference Range ChangeNew: 11.9-14.2 Previous: 11.7- 14.7RECOMMENDED COUMADIN/WARFARIN INR THERAPY RANGESSTANDARD DOSE: 2.0-3.0 Includes: PROPHYLAXIS for venous thrombosis, systemic embolization; TREATMENT for venous thrombosis and/or pulmonary embolus.HIGH RISK: Target INR is2.5-3.5 for patients wiht mechanical heart valves.CALCIUM, [id number] 04:36:00 Test Item Value Reference Range Interpretation Comments CALCIUM IONIZED (BEAKER) (test 1.17 mmol/L 1.12-1.27 code = 698) PH, BLOOD (BEAKER) (test code = 7.40 1810) BASIC METABOLIC [id number] 04:35:00 Test Item Value Reference Range Interpretation [...] S NOT APPLICABLE FOR DIALYSIS PATIEN TS. Freight Weigher ID - EDASILactic acid, [id number] 04:27:00 Test Item Value Reference Range Interpretation Comments Lactate, Venous (test code 0.84 mmol/L 0.5-2.2 = 2872) PAOLA (test code = PAOLA) Freight Weigher ID - EDASI Lab Interpretation (test Normal code = 69153-3) [facility], [id number] 04:27:00 Test Item Value Reference Range Interpretation Comments LACTATE BLOOD VENOUS (2) (BEAKER) 0.84 mmol/L 0.50-2.20 (test code = 2872) Freight Weigher ID - EDASICBC W/PLT COUNT & AUTO [id number] 04:11:00 Test Item Value Reference Range Interpretation [...] PERCENT (BEAKER) (test code = 2801) POCT-GLUCOSE [id number] 00:53:00 Test Item Value Reference Range Interpretation Comments POC-GLUCOSE METER 44 mg/dL 70-110 L : TESTED A T [facility] 6720 (BEAKER) (test code = TREVOR Shipley [facility], 1538) [address]: Freight Weigher/Techni slick ID = [id number] for JUAN NUNEZ RUEL TSH/Free T4 If [id number] 00:03:00 Test Item Value Reference Range Interpretation Comments TSH (test code = 1.119 See_Comment [Automated 36028-3) message] The system which generated this result transmit inlesh reference range : 0.350 - 4.940 uIU/mL. The reference range was not used to interpret this result as normal/abnormal . PAOLA (test code = PAOLA) Freight Weigher ID - DB Lab Interpretation Normal (test code = 35339-0) [facility] CenterCortisol2021-03-07 00:03:00 Test Item Value Reference Range Interpretation Comments Cortisol, Total (test code = 8.5 ug/dL 3.7-19.4 8951) PAOLA (test code = PAOLA) Freight Weigher ID - DB Lab Interpretation (test Normal code = 25695-4) [facility]ORT[facility]OL2021-[facility]-07 00:03:00 Test Item Value Reference Range Interpretation Comments CORTISOL, TOTAL (BEAKER) (test code 8.5 ug/dL 3.7-19.4 = 2755) Freight Weigher ID - DBTSH/FREE T4 IF [id number] 00:03:00 Test Item Value Reference Range Interpretation Comments THYROID STIMULATING HORMONE 1.119 uIU/mL 0.350-4.940 (BEAKER) (test code = 772) Freight Weigher ID - DBCOMPREHENSIVE METABOLIC [id number] 23:37:00 Test Item Value Reference Range Interpretation [...] S NOT APPLICABLE FOR DIALYSIS PATIEN TS. Freight Weigher ID - DBB-type Natriuretic Factor (BNP)2020-06-01 23:32:00 Test Item Value Reference Range Interpretation Comments BNP (test code = 49263-6) 24 pg/mL 0-100 PAOLA (test code = PAOLA) Freight Weigher ID - DB Lab Interpretation (test Normal code = 81698-6) [facility] CenterTroponin [id number] 23:32:00 Test Item Value Reference Range Interpretation Comments Troponin I (test code = <0.01 0-0.03 87584-0) PAOLA (test code = PAOLA) Troponin I [...] DB Lab Interpretation (test Normal code = 06137-0) [facility] CenterB-TYPE NATRIURETIC FACTOR (BNP)2020-06-01 23:32:00 Test Item Value Reference Range Interpretation Comments B-TYPE NATRIURETIC PEPTIDE (BEAKER) 24 pg/mL 0-100 (test code = 700) Freight Weigher ID - DBTROPONIN [id number] 23:32:00 Test Item Value Reference Range Interpretation [...] failure, acidosis, acute neurological disease, and persistent tachyarrhythmia.Freight Weigher ID - [id number] 23:30:00 Test Item Value Reference Range Interpretation Comments MAGNESIUM (BEAKER) (test code = 1.2 mg/dL 1.6-2.6 L 627) Freight Weigher ID - DBPOCT-GLUCOSE [id number] 22:53:00 Test Item Value Reference Range Interpretation Comments POC-GLUCOSE METER 84 mg/dL 70-110 : TESTED Daniel Mota [facility] 6720 (TAY) (test code = [place], 1538) [address]: Freight Weigher/Techni slick ID = [id number] for MATH AI, MISA RAD, CHEST, 1 VIEW, NON [id number] 22:18:00Reason for exam:- >dyspneaShould this be performed at the bedside?->Yes [facility] 1950 Sex: FFINAL REPORT CLINICAL INDICATION: Dyspnea Comparison: 06/01/2020 A single view of the chest is submitted. The patient is rotated slightly to the left. The cardiomediastinal contours are stable. Central pulmonary vascular prominence and bilateral parenchymal opacities are similar to previous. There is no pneumothorax. IMPRESSION: No significant interval change. Signed: Jeaneth Duarte MDReport Verified Date/Time: 06/01/2020 22:18:27 XR chest 1 view portable / [id number] 22:18:00Interface, External Ris In - 06/01/2020 10:20 PM CSTFINAL REPORT CLINICAL INDICATION: Dyspnea Comparison: 06/01/2020 A single view of the chest is submitted. The patient is rotated slightly to the left. The cardiomediastinal contours are stable. Central pulmonary vascular prominence and bilateral parenchymal opacities are similar to previous. There is no pneumothorax. IMPRESSION: No significant interval change. Signed: Jeaneth Duarte MDReport Verified Date/Time: 06/01/2020 22:18:27 [facility] [id number] 22:14:00 Test Item Value Reference Range Interpretation Comments POC-GLUCOSE METER 30 mg/dL 70-110 LL : TESTED A T [facility] 6720 (BEAKER) (test code = TREVOR [place], 1538) [address]: Freight Weigher/Techni slick ID = [id number] for NATHAN LLOYD LACTIC ACID, [id number] 20:48:00 Test Item Value Reference Range Interpretation Comments LACTATE BLOOD VENOUS (2) (BEAKER) 1.40 mmol/L 0.50-2.20 (test code = 2872) Freight Weigher ID - DBCBC W/PLT COUNT & AUTO [id number] 20:37:00 Test Item Value Reference Range Interpretation [...] (BEAKER) (test code = 2801) LACTIC ACID, [id number] 18:42:00 Test Item Value Reference Range Interpretation Comments LACTATE BLOOD VENOUS (2) (BEAKER) 1.54 mmol/L 0.50-2.20 (test code = 2872) Freight Weigher ID - EDASIRAD, CHEST, 1 VIEW, NON [id number] 07:14:00Reason for exam:->sepsisGL[facility] : 1950 Sex: FFINAL [...] Leger Verified Date/Time: 06/01/2020 07:14:27 Reading Location: [facility] C013X Ortho Consult Reading Room [id number] 04:42:00 Test Item Value Reference Range Interpretation Comments Procalcitonin (test code = 0.08 ng/mL <0.05 H 49060-0) PAOLA (test code = PAOLA) SEPSIS RISK (ng/mL)Low: 0.05-0.50Intermedi ate: 0.51-2.00High: >=2.01 Lab Interpretation (test Abnormal code = 18143-1) [facility] CenterPROCALCITONIN2021-03-06 04:42:00 Test Item Value Reference Range Interpretation Comments PROCALCITONIN (BEAKER) (test code 0.08 ng/mL <0.05 H = 3036) SEPSIS RISK (ng/mL)Low: 0.05-0.50Intermediate: 0.51-2.00High: >=2.01URINALYSIS W/ REFLEX URINE [id number] 04:13:00 Test Item Value Reference Range Interpretation [...] /LPF 514) SOURCE(BEAKER) (test code = 2795) Freight Weigher ID - [auto]Freight Weigher ID - techCOMPREHENSIVE METABOLIC [id number] 03:08:00 Test Item Value Reference Range Interpretation [...] I S NOT APPLICABLE FOR DIALYSIS PATIEN ANTONIA. Freight Weigher ID - [id number] 03:02:00 Test Item Value Reference Interpretation Comments Range Protime (test code = 23.0 See_Comment H [Autom ated 5902-2) message] The system which generated this result transmitted reference range : 11.9 - 14.2 seconds. The reference range was not used to interpret this result as normal/abnormal . INR (test code = 2.10 See_Comment [Automated 7841-6) message] The system which generated this result transmitted reference range : <=5.90. The reference range was not used to interpret this result as normal/abnormal . PTT (test code = 38.9 See_Comment H [Automated 81532-6) message] The system which generated this result [...] valves. Lab Interpretation Abnormal (test code = 05416-5) [facility] CenterPT/[id number] 03:02:00 Test Item Value Reference Range Interpretation [...] for patients wiht mechanical heart valves.LACTIC ACID, [id number] 03:00:00 Test Item Value Reference Range Interpretation Comments LACTATE BLOOD VENOUS (2) (BEAKER) 1.11 mmol/L 0.50-2.20 (test code = 2872) Freight Weigher ID - DBCBC W/PLT COUNT & AUTO [id number] 02:48:00 Test Item Value Reference Range Interpretation [...] % 0-1 PERCENT (BEAKER) (test code = 1211)
[2020-09-05 15:49] LABS: Absolute Lymphocytes (CBC) 0.9 K/uL (0.7-4.9); Basophils % 0.2 % (0-1.3); Hematocrit 17.5 % (36.0-45.0); Lymphocytes % 8.9 % (15.3-44.8); MPV 7.2 fL (7.6-11.3); RBC Red Blood Cell Count 1.93 M/uL (3.86-4.86)
[2020-09-05 16:03] LABS: ALT/SGPT 30 U/L (12-78); AST/SGOT 30 U/L (15-37); Albumin 1.7 g/dL (3.4-5.0); Alkaline Phosphatase 127 U/L (45-117); BUN Blood Urea Nitrogen 56 mg/dL (7-18); Bicarbonate 23 mmol/L (21-32); Bilirubin Direct 0.2 mg/dL (0-0.2); Bilirubin Total 0.4 mg/dL (0.2-1.0); Glucose Level 92 mg/dL (74-106); Magnesium 2.5 mg/dL (1.8-2.4); NT PRO-BNP 966 pg/mL (<125); Potassium 3.8 mmol/L (3.5-5.1); Sodium Level 128 mmol/L (136-145); Troponin (Emerg Dept Use Only) < 0.02 ng/mL (0.0-0.045)
[2020-09-05 16:07] LABS: Protime INR 2.55
--- NOTE | 2020-09-05 16:57 | RAD REPORT ---
EXAM DESCRIPTION: CT - Head Brain Wo Cont - 09/05/2020 4:41 pm CLINICAL HISTORY: Alteration of awareness/confusion COMPARISON: March 2020 TECHNIQUE: Computed axial tomography of the head was obtained. IV contrast was not requested. All CT scans are performed using dose optimization technique as appropriate and may include automated exposure control or mA/KV adjustment according to patient size. FINDINGS: An intracranial bleed is not seen . Prominence of the fourth ventricle is unchanged. No extra-axial fluid collection is noted. Mild low-density areas within periventricular, deep and subcortical white matter likely represent isc hemic changes secondary to small vessel disease. Fluid within the sinuses/ mastoids is not seen. IMPRESSION: No acute intracranial abnormality is seen. If patient's symptoms persist MRI of the bra in would be recommended.
[2020-09-05] MEDS ORDERED: NA CHLORIDE 0.9% 500 ML ONE ×2 (16:58→18:08)
--- NOTE | 2020-09-05 17:04 | RAD REPORT ---
EXAM DESCRIPTION: CT - Abdomen Pelvis Wo Contrast - 09/05/2020 4:42 pm CLINICAL HISTORY: Abdominal pain COMPARISON: June 2020 TECHNIQUE: Computed axial tomography of the abdomen and pelvis was obtained. IV and oral contrast we re not requested. All CT scans are performed using dose optimization technique as appropriate and may include automated exposure control or mA/KV adjustment according to patient size. FINDINGS: The evaluation of solid organs, vessels and bowel is limited secondary to the lack of con trast administration. The liver, spleen, pancreas, adrenals and right kidney appear grossly normal. Stable mild left hydronephrosis. Percutaneous tube within the stomach. Chronic dilatation of the sigmoid colon measuring 10.5 centimeters. A Rome catheter within the bladder No evidence of diverticulitis IMPRESSION: Chronic dilatation of the sigmoid colon measuring 10.5 centimeters
--- NOTE | 2020-09-05 17:21 | RAD REPORT ---
EXAM DESCRIPTION: Volodymyr Single View09/05/2020 3:20 pm CLINICAL HISTORY: Abdominal pain COMPARISON: June 2020 FINDINGS: The lungs appear clear of acute infiltrate. The heart is mildly enlarged. Pacemaker lead in place IMPRESSION: No acute abnormalities displayed
[2020-09-05] MEDS ORDERED: CEFEPIME 2 GM VIAL ONE (18:08)
[2020-09-05] MEDS ORDERED: CEFEPIME/SWI 1gm 20 ML ONE (18:09)
--- NOTE | 2020-09-05 18:12 | EDPHYS ---
Physician Documentation [facility] Name: Anita Harp Age: 70 yrs Sex: Female : 1950 Arrival Date: 09/05/2020 Time: 14:49 Bed 14 Private MD: ED Physician Saad Navarrete HPI: 09/05 15:05 This 70 yrs old Black Female presents to ER via EMS with complaints of Altered Mental cp Status and Hypotension. 15:05 The patient presents with confusion. Onset: The symptoms/episode began/occurred cp gradually, and became worse today. Possible causes: unknown. Associated signs and symptoms: Pertinent positives: weakness, Pertinent negatives: abdominal pain, chest pain. Current symptoms: In the emergency department the patient's symptoms are unchanged from the initial presentation, despite EMS interventions. Patient's baseline: Neuro: alert and fully oriented, Ambulation: unable to walk, is bedridden, Speech: normal. Unable to obtain HPI due to altered mental status. Historical: - Allergies: 15:43 Aspirin; tr6 15:43 PENICILLINS; tr6 15:43 Ibuprofen; tr6 - Home Meds: 15:43 Eliquis oral oral [Active]; furosemide 20 mg Oral tab 1 tab once daily [Active]; tr6 20:16 amitriptyline 10 mg Oral tab 1 tab 3 times per day [Active]; gabapentin 300 mg Oral cap jb4 1 cap 3 times per day [Active]; metformin 500 mg Oral cpER 2 tabs once daily [Active]; carvedilol 12.5 mg Oral tab 1 tab 2 times per day [Active]; valsartan 160 mg Oral tab 1 tab once daily [Active]; potassium chloride 20 mEq Oral cpER 1 tab once daily [Active]; venlafaxine 150 mg Oral cp24 1 cap once daily [Active]; - PMHx: 20:16 CHF; Anxiety; claustrophobia; Diabetes - NIDDM; COPD; Panic Attacks; Rheumatoid jb4 Arthritis; - PSHx: 15:43 peg tube; tr6 - Immunization history:: Adult Immunizations up to date. - Social history:: Smoking status: unknown. ROS: 15:10 Constitutional: Negative for fever. cp 15:10 Neuro: Positive for altered mental status. cp 15:10 Unable to obtain ROS due to altered mental status. Exam: 15:15 Constitutional: The patient appears in no acute distress, alert, awake, cp non-diaphoretic, non-toxic, well developed, well nourished, obese. 15:15 Head/Face: Normocephalic, atraumatic. cp 15:15 Eyes: Periorbital structures: appear normal, Pupils: equal, round, and reactive to light and accomodation, Extraocular movements: intact throughout, Conjunctiva: normal, no exudate, no injection, Sclera: no appreciated abnormality, Lids and lashes: appear normal, bilaterally. 15:15 ENT: External ear(s): are unremarkable, Nose: is normal, Mouth: Lips: dry, Oral mucosa: moist, Posterior pharynx: Airway: no evidence of obstruction, patent. 15:15 Neck: ROM/movement: is normal, is supple, without pain, no range of motions limitations. 15:15 Chest/axilla: Inspection: normal, Palpation: is normal, no crepitus, no tenderness. 15:15 Cardiovascular: Rate: normal, Rhythm: regular. 15:15 Respiratory: the patient does not display signs of respiratory distress, Respirations: normal, no use of accessory muscles, no retractions, labored breathing, is not present, Breath sounds: bronchial sounds, that are mild, are heard diffusely. 15:15 Abdomen/GI: Inspection: gastrostomy tube noted LUQ, Bowel sounds: active, all quadrants, Palpation: abdomen is soft and non-tender, in all quadrants. 15:15 Skin: cellulitis, is not appreciated, no rash present. 15:15 Neuro: Orientation: to person, place, Mentation: confused. 16:00 : Rectal exam: Guaiac testing: results were negative for occult blood. cp 16:15 ECG was reviewed by the Attending Physician. cp Vital Signs: 15:36 BP 115 / 50; Pulse 79; Resp 18; Temp 97.9; Pulse Ox 99% on R/A; tr6 16:00 BP 90 / 60; Pulse 82; Resp 18; Pulse Ox 88% on R/A; tr6 17:42 BP 92 / 64 LA Supine (auto/reg); Pulse 82; Resp 18; Pulse Ox 98% on R/A; tr6 20:00 BP 84 / 58; Pulse 87; Resp 19; Temp 97.1; Pulse Ox 98% on R/A; Pain 0/10; jb4 20:30 BP 105 / 65; Pulse 88; Resp 16; Pulse Ox 100% on R/A; jb4 21:15 BP 107 / 64; Pulse 88; Resp 17; Temp 98.0; Pulse Ox 100% on R/A; jb4 MDM: 14:50 Patient medically screened. 18:00 Data reviewed: vital signs, nurses notes, lab test result(s), EKG, radiologic studies, cp CT scan, plain films. 18:10 Physician consultation: Torsten NGUYỄN was called at 18:10, was contacted at 18:10, regarding admission, patient's condition. 09/05 14:59 Order name: Basic Metabolic Panel; Complete Time: 16:05 09/05 16:10 Interpretation: Normal except: NA 128; CL 97; BUN 56; GFR 26; CRE 2.23. 09/05 14:59 Order name: CBC with Diff; Complete Time: 16:05 09/05 16:11 Interpretation: Normal except: RBC 1.93; HGB 6.0; HCT 17.5; PLT 423; RDW 16.4; MPV 7.2; cp STEPHANIE% 81.6; LYM% 8.9. 09/05 14:59 Order name: LFT's; Complete Time: 16:05 09/05 16:11 Interpretation: Normal except: ALK 127; TP 9.0; ALB 1.7; GLOB 7.3; A/G 0.2. 09/05 14:59 Order name: Magnesium; Complete Time: 16:05 09/05 14:59 Order name: NT PRO-BNP; Complete Time: 16:05 09/05 14:59 Order name: PT-INR; Complete Time: 16:10 09/05 16:10 Interpretation: Abnormal: PT 29.6. 09/05 14:59 Order name: Troponin (emerg Dept Use Only); Complete Time: 16:05 09/05 14:59 Order name: Procalcitonin; Complete Time: 16:14 09/05 16:14 Interpretation: Abnormal: Procalcitonin 0.40. 09/05 14:59 Order name: Lactate; Complete Time: 16:05 09/05 14:59 Order name: Blood Culture Adult (2) 09/05 16:06 Order name: Type And Screen 09/05 17:07 Order name: SARS-COV-2 RT PCR; Complete Time: 17:31 [facility] 09/05 14:59 Order name: XRAY Chest (1 view); Complete Time: 17:31 09/05 17:31 Interpretation: Report reviewed. 09/05 14:59 Order name: EKG; Complete Time: 15:01 09/05 15:00 Order name: CT Head Brain wo Cont; Complete Time: 17:31 09/05 17:31 Interpretation: Report reviewed. 09/05 16:08 Order name: CT Abd/Pelvis - Without Contrast; Complete Time: 17:31 09/05 17:32 Interpretation: Report reviewed. 09/05 17:15 Order name: Packed RBC Leukored [facility] 09/05 18:44 Order name: Urinalysis 09/05 19:00 Order name: [facility] 09/05 19:00 [facility] 09/05 19:05 Order name: Urinalysis W/Microscopic [facility] 09/05 19:08 Order name: Urine Culture [facility] 09/05 14:59 Order name: Cardiac monitoring; Complete Time: 16:14 09/05 14:59 Order name: EKG - Nurse/Tech; Complete Time: 16:14 09/05 14:59 Order name: IV Saline Lock; Complete Time: 15:35 09/05 14:59 Order name: Labs collected and sent; Complete Time: 15:35 09/05 14:59 Order name: O2 Per Protocol; Complete Time: 15:35 09/05 14:59 Order name: O2 Sat Monitoring; Complete Time: 15:35 09/05 17:42 Order name: Transfuse; Complete Time: 19:53 cp EC:15 Rate is 82 beats/min. Rhythm is regular. MI interval is normal. QRS interval is normal. cp QT interval is normal. T waves are Inverted in leads V2, V3. Interpreted by me. Reviewed by me. Administered Medications: 16:53 Drug: NS 0.9% 500 ml Route: IV; Rate: 500 ml/hr; Site: right antecubital; tr6 17:50 Drug: Cefepime 2 grams Route: IVPB; Rate: 200 ml/hr; Infused Over: 30 mins; Site: right tr6 antecubital; 17:50 Drug: NS 0.9% 500 ml Route: IV; Rate: 500 ml/hr; Site: right antecubital; tr6 Disposition: 19:00 Chart complete. 09/06 07:05 Co-signature as Attending Physician, Saad Navarrete MD I agree with the assessment and kdr plan of care. Disposition: 09/05/20 18:11 Hospitalization ordered by Hardik Collazo for Inpatient Admission. Preliminary diagnosis are Anemia in chronic diseases classified elsewhere, Acute kidney failure, Altered mental status, unspecified. - Bed requested for Telemetry/MedSurg (Inpatient). - Status is Inpatient Admission. jb4 - Condition is Fair. - Problem is new. - Symptoms have improved. Signatures: Dispatcher [employer] EDMS Saad Navarrete MD MD kdr Brennan Katz PA PA Linda Ruiz RN RN Oswald Gracia RN RN jb4 Shanon Ramirez RN RN tr6 Corrections: (The following items were deleted from the chart) 09/05 16:04 15:01 CORONAVIRUS+MR.LAB.BRZ ordered. EDMI EDMS 16:08 15:01 Chest Abdomen Pelvis W Con+CT.RAD.BRZ ordered. EDMI EDMS 19:01 19:01 FERRITIN+C.LAB.BRZ ordered. EDMI EDMS 19:05 15:01 UA MICROSCOPIC+U.LAB.BRZ ordered. EDMI EDMS 19:05 18:45 Urinalysis ordered. EDMI EDMI 20:03 18:11 Hospitalization Ordered by Hardik Collazo MD for Inpatient Admission. Preliminary cg diagnosis is Anemia in chronic diseases classified elsewhere; Acute kidney failure; Altered mental status, unspecified. Bed requested for Telemetry/MedSurg (Inpatient). Status is Inpatient Admission. Condition is Fair. Problem is new. Symptoms have improved. cp 21:48 20:03 09/05/2020 18:11 Hospitalization Ordered by Hardik Collazo MD for Inpatient jb4 Admission. Preliminary diagnosis is Anemia in chronic diseases classified elsewhere; Acute kidney failure; Altered mental status, unspecified. Bed requested for Telemetry/MedSurg (Inpatient). Status is Inpatient Admission. Condition is Fair. Problem is new. Symptoms have improved.
--- NOTE | 2020-09-05 18:12 | ER ---
Nurse's Notes [facility] Name: Anita Harp Age: 70 yrs Sex: Female : 1950 Arrival Date: 09/05/2020 Time: 14:49 Bed 14 Private MD: Diagnosis: Anemia in chronic diseases classified elsewhere;Acute kidney failure;Altered mental status, unspecified Presentation: 09/05 15:36 Chief complaint: EMS states: hypotension, left sided weakness over the past week. tr6 Coronavirus screen: At this time, unable to obtain information related to travel outside the [place] Ebola Screen: No symptoms or risks identified at this time. Initial Sepsis Screen: Does the patient meet any 2 criteria? Altered Mental Status. Does the patient have a suspected source of infection? No. Patient's initial sepsis screen is negative. Risk Assessment: Do you want to hurt yourself or someone else? Patient reports no desire to harm self or others. Onset of symptoms is unknown. 15:36 Method Of Arrival: EMS: [facility] tr6 15:36 Acuity: DENTON 2 tr6 Triage Assessment: 16:11 General: Appears in no apparent distress. comfortable, unkempt, Behavior is calm, tr6 cooperative, appropriate for age. Pain: Denies pain. EENT: pt has no teeth. Neuro: Level of Consciousness is awake, alert, obeys commands, Oriented to person, place, Speech is normal. Cardiovascular: No deficits noted. Respiratory: No deficits noted. GI: Abdomen is round PEG tube 17:44 : Brito in place. tr6 Historical: - Allergies: 15:43 Aspirin; tr6 15:43 PENICILLINS; tr6 15:43 Ibuprofen; tr6 - Home Meds: 15:43 Eliquis oral oral [Active]; furosemide 20 mg Oral tab 1 tab once daily [Active]; tr6 20:16 amitriptyline 10 mg Oral tab 1 tab 3 times per day [Active]; gabapentin 300 mg Oral cap jb4 1 cap 3 times per day [Active]; metformin 500 mg Oral cpER 2 tabs once daily [Active]; carvedilol 12.5 mg Oral tab 1 tab 2 times per day [Active]; valsartan 160 mg Oral tab 1 tab once daily [Active]; potassium chloride 20 mEq Oral cpER 1 tab once daily [Active]; venlafaxine 150 mg Oral cp24 1 cap once daily [Active]; - PMHx: 20:16 CHF; Anxiety; claustrophobia; Diabetes - NIDDM; COPD; Panic Attacks; Rheumatoid jb4 Arthritis; - PSHx: 15:43 peg tube; tr6 - Immunization history:: Adult Immunizations up to date. - Social history:: Smoking status: unknown. Screenin:09 Abuse screen: Denies threats or abuse. Denies injuries from another. Has been tr6 threatened or abused. Nutritional screening: No deficits noted. Tuberculosis screening: No symptoms or risk factors identified. Fall Risk None identified. Assessment: 17:38 Reassessment: see pt triage assessment. tr6 18:25 Reassessment: Patient and/or family updated on plan of care and expected duration. Pain tr6 level reassessed. Patient is alert, oriented x 3, equal unlabored respirations, skin warm/dry/pink. pt is now AOx4. this RN updated pts daughter via phone with pts permission. 18:29 Reassessment: NGOC Torsten at bedside to admit pt. tr6 18:40 Reassessment: RN spoke with pts daughter Ludy. per daughter pts brito was changed tr6 august 26. peg tube was placed about 3 years ago. 19:15 Reassessment: Patient appears in no apparent distress at this time. Patient and/or jb4 family updated on plan of care and expected duration. Pain level reassessed. Patient is alert, oriented x 3, equal unlabored respirations, skin warm/dry/pink. Pt started on Blood transfusion by Day shift nurse. Patient denies pain at this time. 20:00 Reassessment: Patient appears in no apparent distress at this time. Patient and/or jb4 family updated on plan of care and expected duration. Pain level reassessed. Patient is alert, oriented x 3, equal unlabored respirations, skin warm/dry/pink. Patient denies pain at this time. 20:46 Reassessment: Patient appears in no apparent distress at this time. Patient and/or jb4 family updated on plan of care and expected duration. Pain level reassessed. Patient is alert, oriented x 3, equal unlabored respirations, skin warm/dry/pink. Report called CHRISTOPH Mena. 21:46 Reassessment: Patient appears in no apparent distress at this time. Patient and/or jb4 family updated on plan of care and expected duration. Pain level reassessed. Patient is alert, oriented x 3, equal unlabored respirations, skin warm/dry/pink. Vital Signs: 15:36 BP 115 / 50; Pulse 79; Resp 18; Temp 97.9; Pulse Ox 99% on R/A; tr6 16:00 BP 90 / 60; Pulse 82; Resp 18; Pulse Ox 88% on R/A; tr6 17:42 BP 92 / 64 LA Supine (auto/reg); Pulse 82; Resp 18; Pulse Ox 98% on R/A; tr6 20:00 BP 84 / 58; Pulse 87; Resp 19; Temp 97.1; Pulse Ox 98% on R/A; Pain 0/10; jb4 20:30 BP 105 / 65; Pulse 88; Resp 16; Pulse Ox 100% on R/A; jb4 21:15 BP 107 / 64; Pulse 88; Resp 17; Temp 98.0; Pulse Ox 100% on R/A; jb4 ED Course: 14:49 Patient arrived in ED. iw 14:50 Brennan Katz PA is PHCP. cp 14:50 Saad Navarrete MD is Attending Physician. cp 15:08 Shanon Ramirez, CHRISTOPH is Primary Nurse. tr6 15:20 XRAY Chest (1 view) In Process Unspecified. EDMS 15:36 Inserted saline lock: 20 gauge in right antecubital area, using aseptic technique. tr6 Blood collected. 15:41 Triage completed. tr6 16:09 No provider procedures requiring assistance completed. tr6 16:09 Patient has correct armband on for positive identification. Fall risk band placed. Bed tr6 in low position. Call light in reach. Side rails up X2. conveyor monitor on. Pulse ox on. NIBP on. Door closed. Noise minimized. Visitors limited. Lights dimmed. Warm blanket given. Diet: Patient is NPO. 16:15 EKG done, by ED staff, reviewed by Saad Navarrete MD. [facility] 16:41 CT Head Brain wo Cont In Process Unspecified. EDMS 16:42 CT Abd/Pelvis - Without Contrast In Process Unspecified. EDMS 18:10 Hardik Collazo MD is Hospitalizing Provider. cp 18:43 EKG completed in triage. Results shown to MD. tr6 19:00 Arm band placed on right wrist. jb4 20:48 Patient admitted, IV remains in place. jb4 Administered Medications: 16:53 Drug: NS 0.9% 500 ml Route: IV; Rate: 500 ml/hr; Site: right antecubital; tr6 17:50 Drug: Cefepime 2 grams Route: IVPB; Rate: 200 ml/hr; Infused Over: 30 mins; Site: right tr6 antecubital; 17:50 Drug: NS 0.9% 500 ml Route: IV; Rate: 500 ml/hr; Site: right antecubital; tr6 Outcome: 18:11 Decision to Hospitalize by Provider. cp 20:48 Admitted to Tele accompanied by nurse, via stretcher, with chart, Report called to edda Mena RN 20:48 Condition: stable 20:48 Discharge instructions given to patient, family, Instructed on the need for admit, Demonstrated understanding of instructions. 21:48 Patient left the ED. [email or web address] Signatures: Dispatcher [employer] EDClaudette Rodriguez, RN RN Brennan Quach, GEMA PA Oswald Brito, RN RN Luz Maria Navarro Shanon Mulligan RN RN tr6
[2020-09-05 19:04] LABS: Urine Appearance TURBID (Clear); Urine Bilirubin NEGATIVE (Negative); Urine Blood 3+ (Negative); Urine Color YELLOW (Yellow); Urine Glucose NEGATIVE (Negative); Urine Protein TRACE (Negative); Urine Specific Gravity <=1.005 (1.005-1.030); Urine Urobilinogen 0.2 mg/dL (0.2-1.0); Urine pH 5.5 (5.0-7.0)
[2020-09-05 19:07] LABS: Urine Bacteria >50 /HPF (<20)
[2020-09-05] MEDS ORDERED: NA CHLORIDE 0.9% 250 ML ONE (19:20)
--- NOTE | 2020-09-05 20:57 | P.HP ---
Certification for Inpatient Patient admitted to: Inpatient With expected LOS: >2 Midnights Patient will require the following post-hospital care: None Practitioner: I am a practitioner with admitting privileges, knowledge of patient current condition, hospital course, and medical plan of care. Services: Services provided to patient in accordance with Admission requirements found in Title 42 Section 412.3 of the Code of Federal Regulations Patient History Date of Service: 09/05/20 Primary Care Provider: Dr. Galan Reason for admission: Acute renal failure, anemia, UTI History of Present Illness: 70-year-old female with history of chronic diastolic congestive heart failure, diabetes mellitus type 2, hypertension, DVTs presents emergency department for low blood pressure, weakness. Patient has long-term indwelling Rome catheter due to immobilization and PEG tube placement for nutritional needs. Patient currently lives at home with her daughter. Patient noted in the emergency department, labs significant for hemoglobin 6.0 hematocrit 17.5 MCV 90.8 sodium 128/87 BUN 56 and 2.23 GFR 26 magnesium 2.5 iron 27, TIBC 119 transfer in the 85 ferritin 2674 pro calcitonin 0.4 urinalysis significant for greater than 50 bacteria less than 5 squamous 3+ leuk esterase on dip 3+ blood CT abdomen pelvis chronic dilatation of sigmoid colon measuring 10.[address] head negative. Chest x-ray unremarkable. Patient ordered to be transfused 2 units packed red blood cells in the emergency department, ED prior history admitted for UTI, anemia, ARF. When I saw the patient in the ER she is awake, alert, oriented x3, patient is not a good historian in regards to her medications or past history, I did discuss with her daughter who is able to provide some assistance but also not a great historian. Unsure of patient's home medications were she is taking the diuretics currently. Patient does appear dry at this time. Will admit for further evaluation and management. Allergies aspirin Allergy (Mild, Verified 02/03/13 23:31) Hives Penicillins Allergy (Mild, Verified 02/03/13 23:30) Hives ibuprofen Allergy (Verified 06/17/19 04:53) Unknown Home Medications: Albuterol Sulfate [Proair Hfa] 2 puff IH Q4HR 02/04/13 Venlafaxine HCl [Effexor XR] 150 mg PO DAILY 02/04/13 Liraglutide [Victoza 2-Walker] 1.8 mg SQ DAILY 01/30/14 carvediloL [Carvedilol] 12.5 mg PO BID 07/19/19 Famotidine [Pepcid*] 20 mg IV BID vial 07/25/19 Apixaban [Eliquis] 1 tab PO BID 07/09/20 Folic Acid 1 tab PO DAILY 07/09/20 Furosemide 1 tab PO DAILY 07/09/20 Losartan Potassium [Cozaar*] 1 tab PO DAILY 07/09/20 Mirtazapine 1 tab PO DAILY 07/09/20 Potassium Chloride [Klor-Con] 2 tab PO BID 07/09/20 Trazodone [Desyrel*] 1 tab PO DAILY 07/09/20 Jevity 1.5 Edwin Liquid 237 ml FT 5XD #120 bot 07/17/20 Magnesium Chloride [Slow-Mag] 64 mg PO DAILY #30 tab 07/17/20 Meropenem [Merrem 1 GM/100 ML NS IVPB] 1 gm IV Q12H #10 bag 07/17/20 Thiamine HCl [Vitamin B-1*] 100 mg PO DAILY #30 tablet 07/17/20 traMADol HCL [Ultram*] 50 mg PO TID PRN #30 tab 07/17/20 - Past Medical/Surgical History Diabetic: Yes -: Diabetes mellitus type 2 -: asthma -: Chronic diastolic congestive heart failure -: Hyperlipidemia -: COPD -: Pacemaker/defibrillator -: RA -: Anxiety -: claustrophobia -: HTN -: gallbladder -: partial hysterectomy -: tubal ligation Psychosocial/ Personal History: Patient currently lives at home with her daughters, has home health/physical therapy/hospital bed - Family History Mother -: Heart disease, Hypertension, Diabetes Notes: asthma - Social History Smoking Status: Never smoker Alcohol use: No CD- Drugs: No Caffeine use: Yes Place of Residence: Home Review of Systems 10-point ROS is otherwise unremarkable General: Weakness, Malaise Respiratory: Shortness of Breath Physical Examination - Physical Exam General: Alert, In no apparent distress, Oriented x3 HEENT: Atraumatic, PERRLA, Other (Mucous membranes dry, pale) Neck: Supple, 2+ carotid pulse no bruit, No LAD Respiratory: Clear to auscultation bilaterally, Normal air movement Cardiovascular: Regular rate/rhythm, Normal S1 S2 Capillary refill: <2 Seconds Gastrointestinal: Normal bowel sounds, No tenderness Musculoskeletal: No tenderness Integumentary: No rashes Neurological: Normal speech, Normal tone, Normal affect, Abnormal strength (4/5 strength in all extremities) Lymphatics: No axilla or inguinal lymphadenopathy - Studies Laboratory Data (last 24 hrs) 09/05/20 15:30: PT 29.6 H, INR 2.55 09/05/20 15:30: WBC 9.90, Hgb 6.0 L*, Hct 17.5 L*, Plt Count 423 H 09/05/20 15:30: Sodium 128 L, Potassium 3.8, BUN 56 H, Creatinine 2.23 H, Glucose 92, Magnesium 2.5 H D, Total Bilirubin 0.4, AST 30, ALT 30, Alkaline Phosphatase 127 H Assessment and Plan - Plan Assessment Acute renal failure Normocytic anemia Urinary tract infection complicated with long-term Rome catheter use and history of ESBL Chronic diastolic congestive heart failure S/P pacemaker defibrillator placement History of DVT Diabetes mellitus type 2 with hypoglycemia Hypertension, hyperlipidemia, RA, COPD, anxiety Plan Acute renal failure: The patient appears very dry at this time, not sure patient is on Lasix at this time, daughter unable to give this information, working on obtaining all medications. Will continue with gentle hydration overnight with D5 half NS as patient's blood sugar is also borderline low and she is NPO as we are not sure of her ability to take in anything besides from the use of her PEG tube. Renal ultrasound were, nephrology consulted, CPK/uric acid levels were ordered. DVT prophylaxis, continue patient's Eliquis for history of DVT. Normocytic anemia: Hemoglobin 6 on admission, 2 units packed red blood cells prepared for transfusion. Will provide patient with Lasix as needed, appears dry at this time. Patient noted to be iron deficient, patient will need iron therapy, also likely related to anemia of chronic disease. Hemoccult test negative, no gross bloody or tarry stools. Urinary tract infection complicated with long-term Rome catheter use and history of ESBL: Patient previously with ESBL, no constitutional symptoms noted pro calcitonin mildly elevated, will cover with meropenem at this time. Urine culture ordered. Chronic diastolic congestive heart failure S/P pacemaker defibrillator placement: Patient appears dry at this time, otherwise this is stable will continue with hydration overnight/blood transfusion, will monitor volume status closely. Will diurese as necessary. Appreciate further input from nephrology as well. History of DVT: Continue Eliquis once this medication has been confirmed. Diabetes mellitus type 2 with hypoglycemia: Patient mildly hypoglycemic, will be made NPO Will continue D5 half NS at this time, can transition to normal saline and sliding scale as necessary. Daughter reports patient only takes medication for diabetes at home as necessary and is unaware of what the medication is currently. Hypertension, hyperlipidemia, RA, COPD, anxiety: Stable, continue home medications. Adjust as necessary. Discharge Plan: Home Plan to discharge in: Greater than 2 days - Advance Directives Does patient have a Living Will: Yes Does patient have a Durable POA for Healthcare: No - Code Status/Comfort Care Code Status Assessed: Yes (Full code) Critical Care: No Time Spent Managing Pts Care (In Minutes): 55
[2020-09-05] MEDS ORDERED: INSULIN -REGULAR HUMAN 50 UNIT/0.5 ML ML SQ SCH (22:04)
[2020-09-05] MEDS ORDERED: ONDANSETRON 4 MG/2 ML VIAL IV PRN (22:04)
[2020-09-05] MEDS ORDERED: ACETAMINOPHEN 500 MG TAB PO PRN (22:04)
[2020-09-05 23:00] VITALS: BMI 34.0
[2020-09-05] MEDS: D5 0.45 NS 1,000 ML IV SCH (23:38)
[2020-09-06] MEDS: Meropenem 1 GM/100 ML BAG IV SCH ×3 (00:15→21:36)
[2020-09-06] MEDS ORDERED: Meropenem 1 GM/100 ML BAG ONE (00:53)
[2020-09-06 01:37] LABS: Urine Appearance TURBID (Clear); Urine Bilirubin NEGATIVE (Negative); Urine Blood 2+ (Negative); Urine Color YELLOW (Yellow); Urine Glucose NEGATIVE (Negative); Urine Protein 1+ (Negative); Urine Urobilinogen 0.2 mg/dL (0.2-1.0)
[2020-09-06 01:45] LABS: Urine Microscopic Reflex ORDER UMIC
[2020-09-06 02:03] LABS: Urine Bacteria >50 /HPF (<20); Urine Mucus 2+ /HPF (NONE SEEN); Urine RBC TNTC /HPF (NONE SEEN)
[2020-09-06] MEDS ORDERED: NA CHLORIDE 0.9% 250 ML ONE (02:35)
[2020-09-06] MEDS ORDERED: D50W 25 GM/50 ML SYRINGE IV PRN (06:30)
[2020-09-06] MEDS ORDERED: GLUCAGON 1 MG/VIAL IM PRN (06:30)
[2020-09-06] MEDS ORDERED: D50W 50 ML IV ONE (06:49)
--- NOTE | 2020-09-06 06:58 | P.CNS ---
Date of Consult: 09/06/20 Reason for Consult: Renal failure Requesting Physician: Hardik Collazo Primary Care Provider: Dr. Galan Chief Complaint: Acute renal failure, anemia, UTI History of Present Illness: 70 yo AAF w/ PMHx of Htn, DM2, chronic diastolic HF, hyperlipidemia, RA, COPD, anxiety disorder, history of DVT on Eliquis,on chronic Rome catheterization with history of ESBL UTI, and chronic anemia, who presented with generalized weakness and hypotension, admitted for further evaluation and management, referred to nephrology for renal failure. She was hypotensive when she came in. She also had severe anemia with initial hemoglobin of 6.0. She is getting blood transfusion today. She was started on IV fluids with slight improvement in her blood pressure. She denies shortness of breath currently. Sonogram was noted to be elevated on admission at 2.23. She received IV fluids with repeat serum creatinine improved to 1.6. She has significant bilateral lower extremity edema. She is currently receiving IV fluids. Her urinalysis shows slight proteinuria, with hematuria and pyuria. She is empirically started on meropenem for UTI. Urine culture is pending. She has been on chronic Rome catheterization. She has a left ureteral stent. Allergies aspirin Allergy (Mild, Verified 02/03/13 23:31) Hives Penicillins Allergy (Mild, Verified 02/03/13 23:30) Hives ibuprofen Allergy (Verified 06/17/19 04:53) Unknown Home Medications: Albuterol Sulfate [Proair Hfa] 2 puff IH Q4HR 02/04/13 Venlafaxine HCl [Effexor XR] 150 mg PO DAILY 02/04/13 Liraglutide [Victoza 2-Walker] 1.8 mg SQ DAILY 01/30/14 carvediloL [Carvedilol] 12.5 mg PO BID 07/19/19 Famotidine [Pepcid*] 20 mg IV BID vial 07/25/19 Apixaban [Eliquis] 1 tab PO BID 07/09/20 Folic Acid 1 tab PO DAILY 07/09/20 Furosemide 1 tab PO DAILY 07/09/20 Losartan Potassium [Cozaar*] 1 tab PO DAILY 07/09/20 Mirtazapine 1 tab PO DAILY 07/09/20 Potassium Chloride [Klor-Con] 2 tab PO BID 07/09/20 Trazodone [Desyrel*] 1 tab PO DAILY 07/09/20 Jevity 1.5 Edwin Liquid 237 ml FT 5XD #120 bot 07/17/20 Magnesium Chloride [Slow-Mag] 64 mg PO DAILY #30 tab 07/17/20 Meropenem [Merrem 1 GM/100 ML NS IVPB] 1 gm IV Q12H #10 bag 07/17/20 Thiamine HCl [Vitamin B-1*] 100 mg PO DAILY #30 tablet 07/17/20 traMADol HCL [Ultram*] 50 mg PO TID PRN #30 tab 07/17/20 - Past Medical/Surgical History Diabetic: Yes -: Diabetes mellitus type 2 -: asthma -: Chronic diastolic congestive heart failure -: Hyperlipidemia -: COPD -: Pacemaker/defibrillator -: RA -: Anxiety -: claustrophobia -: HTN -: gallbladder -: partial hysterectomy -: tubal ligation Psychosocial/ Personal History: Patient currently lives at home with her daughters, has home health/physical therapy/hospital bed - Family History Mother Medical History: Heart disease, Hypertension, Diabetes Notes: asthma - Social History Smoking Status: Unknown if ever smoked Alcohol use: No CD- Drugs: No Caffeine use: Yes Place of Residence: Home Review of Systems General: Weakness Eyes: Unremarkable ENT: Unremarkable Respiratory: Unremarkable Cardiovascular: Other (hypotension) Gastrointestinal: Unremarkable Genitourinary: Unremarkable Musculoskeletal: Unremarkable Integumentary: Unremarkable Neurological: Weakness Physical Examination Temp Pulse Resp BP Pulse Ox 95.9 F L 79 18 104/56 L 100 09/06/20 04:00 09/06/20 04:00 09/06/20 04:00 09/06/20 04:00 09/06/20 04:00 General: In no apparent distress HEENT: Atraumatic, Normocephalic Neck: Supple Respiratory: Normal air movement Cardiovascular: Normal S1 S2, No rubs, No murmurs Gastrointestinal: Soft and benign, Non-distended Musculoskeletal: Swelling Integumentary: Other (normal temperature) Neurological: Normal tone Urinary: Other (no bladder distention) External genitalia: Deferred Rectal: Deferred Laboratory Data (last 24 hrs) 09/05/20 15:30: PT 29.6 H, INR 2.55 09/05/20 15:30: WBC 9.90, Hgb 6.0 L*, Hct 17.5 L*, Plt Count 423 H 09/05/20 15:30: Sodium 128 L, Potassium 3.8, BUN 56 H, Creatinine 2.23 H, Glucose 92, Magnesium 2.5 H D, Total Bilirubin 0.4, AST 30, ALT 30, Alkaline Phosphatase 127 H Conclusions/Impression: # FRANNY 2/2 prerenal state + hypoperfusion from hypotension Improving PTH normal at 57 CK within normal limits renal ultrasound showing mild left hydronephrosis with ureteral stent in place has chronic Rome catheter urinalysis showing slight proteinuria, with hematuria and pyuria, on meropenem, urine culture pending follow-up urine chemistry and random urine protein valencia ratio monitor renal panel continue IV fluids for another day # Hypotension; history of hypertension; history of pulmonary hypertension history of chronic diastolic heart failure status post PPM/AICD history of leg DVT on Eliquis Hemoccult negative BNP elevated troponin negative bilateral lower extremity edema chest CT in June 2020 showed a dilated main pulmonary artery TTE showed moderate pulmonary hypertension unable to rule out pulmonary embolism at this time follow-up bilateral lower extremity Doppler ultrasound to assess for DVT progression Follow-up VQ scan result Follow-up ABG results. If the A-a gradient is significantly elevated for her age, will make pulmonary embolism diagnosis more likely check 8am serum cortisol and ACTH TSH within normal limits continue IV fluids at 75 cc/h, discontinue if you develop shortness of breath # Hypokalemia Monitor/replete when necessary # Anemia Transfuse packed RBC # Nutritiion on tube feeding via PEG # DVT Eliquis on hold # DM 2 Management per primary team
[2020-09-06 08:46] LABS: Absolute Lymphocytes (CBC) 0.6 K/uL (0.7-4.9); Basophils % 0.1 % (0-1.3); Hematocrit 24.8 % (36.0-45.0); Lymphocytes % 7.3 % (15.3-44.8); MPV 7.4 fL (7.6-11.3); RBC Red Blood Cell Count 2.76 M/uL (3.86-4.86)
[2020-09-06] MEDS ORDERED: APIXABAN 5 MG TABLET PO SCH (09:00)
[2020-09-06 09:20] LABS: ALT/SGPT 27 U/L (12-78); AST/SGOT 28 U/L (15-37); Albumin 1.8 g/dL (3.4-5.0); Alkaline Phosphatase 127 U/L (45-117); BUN Blood Urea Nitrogen 47 mg/dL (7-18); Bicarbonate 22 mmol/L (21-32); Bilirubin Total 0.4 mg/dL (0.2-1.0); Creatine Phosphokinase 75 U/L (26-192); Glucose Level 76 mg/dL (74-106); Potassium 3.2 mmol/L (3.5-5.1); Protein, Total 9.3 g/dL (6.4-8.2); Sodium Level 135 mmol/L (136-145); Uric Acid 10.3 mg/dL (2.6-6.0)
[2020-09-06 09:21] LABS: HDL Cholesterol 24 mg/dL (40-60); LDL Cholesterol, Calculated 60 (<130); Magnesium 2.6 mg/dL (1.8-2.4); Troponin I < 0.02 ng/mL (0.0-0.045)
[2020-09-06] MEDS: FE SULF/FA/VIT B COMP & C TAB PO SCH (10:09)
--- NOTE | 2020-09-06 10:14 | RAD REPORT ---
EXAM DESCRIPTION: US - Renal Ultrasound-Complete - 09/06/2020 9:01 am CLINICAL HISTORY: Acute renal failure COMPARISON: CT September 05, 2020 FINDINGS: The right kidney measures 10 cm with a normal echotexture. The left kidney measures 10 cm with a normal echotexture. Mild left hydronephrosis. Ureteral stent in place. The bladder is decompressed. A Rome catheter is present IMPRESSION: Mild left hydronephrosis
[2020-09-06] MEDS: JEVITY 1.2 CAL LIQUID 1,000 ML BOT FT SCH ×4 (11:00→21:37)
[2020-09-06] MEDS: INSULIN -REGULAR HUMAN 50 UNIT/0.5 ML ML SQ SCH ×2 (11:52→17:46)
[2020-09-06] MEDS ORDERED: POTASSIUM 25 MEQ EFFERV TAB PO ONE (12:00)
--- NOTE | 2020-09-06 17:31 | P.PN ---
Subjective Date of Service: 09/06/20 Primary Care Provider: Dr. Galan Chief Complaint: Acute renal failure, anemia, UTI Subjective: No new changes Physical Examination - Vital Signs Temperature: 97.2 F Blood Pressure: 107/54 Pulse: 88 Respirations: 20 Pulse Ox (%): 99 - Studies Microbiology Data (last 24 hrs): 09/05/20 15:30 Blood - Blood Blood Culture Gram Stain - Final 09/05/20 15:30 Blood - Blood Gram Stain - Final Assessment & Plan Physician Review Additional Text: Physical Exam General: Alert, In no apparent distress, Oriented x3 HEENT: Atraumatic, normal conjunctiva Respiratory: Clear to auscultation bilaterally, Normal air movement Cardiovascular: Regular rate/rhythm, Normal S1 S2 Gastrointestinal: soft, nontender Integumentary: b/l buttocks with excoriated skin Neurological: Normal speech, normal affect Problem List Acute renal failure Normocytic anemia, chronic Urinary tract infection complicated with long-term Brito catheter use and h istory of ESBL Chronic diastolic congestive heart failure S/P pacemaker defibrillator placement History of DVT Diabetes mellitus type 2 with hypoglycemia Hypertension, hyperlipidemia, RA, COPD, anxiety -FRANNY - pt appears dry, unclear if she has been taking lasix, working on obtaining accurate med list, continue gentle IVF -restart patient's PEG feeds, pt with hypoglycemia this morning -anemia - pt has chronic anemia, denies any carolann bleeding, on eliquis for DVT, h/o iron deficiency. occult negative -UTI -urine dirty, has chronic brito, will cover with meropenem as patient has history of ESBL -monitor volume status closely given h/o CHF -accucheks/sliding scale insulin -confirm home meds, restart as appropriate Time Spent Managing Pts Care (In Minutes): 40
[2020-09-06] MEDS: D5 0.45 NS 1,000 ML IV SCH (17:48)
[2020-09-06] MEDS: VANCOMYCIN 1.5 GM in NA CHLORIDE 0.9% 500 ML IVPB SCH (18:43)
[2020-09-07] MEDS: D5 0.45 NS 1,000 ML IV SCH ×2 (00:44→11:35)
--- NOTE | 2020-09-07 06:19 | P.PN ---
Subjective Date of Service: 09/07/20 Primary Care Provider: Dr. Galan Chief Complaint: Acute renal failure, anemia, UTI Subjective: Improving (feels a little better, tearful this morning, wants to go home, thirsty - wants to drink water, AAOx3,) Review of Systems 10-point ROS is otherwise unremarkable Physical Examination - Vital Signs Temperature: 97.5 F Blood Pressure: 98/54 Pulse: 86 Respirations: 16 Pulse Ox (%): 98 - Studies Microbiology Data (last 24 hrs): 09/05/20 15:30 Blood - Blood Blood Culture Gram Stain - Final 09/05/20 15:30 Blood - Blood Gram Stain - Final Assessment & Plan Physician Review Additional Text: Physical Exam General: Alert, Oriented x3, tearful HEENT: Atraumatic, normal conjunctiva, sclera anicteric Respiratory: Clear to auscultation bilaterally, Normal air movement Cardiovascular: Regular rate/rhythm, Normal S1 S2, 1+ b/l edema to knees Gastrointestinal: soft, nontender, nondistended Integumentary: b/l buttocks with excoriated skin Neurological: Normal speech, normal affect Problem List Acute renal failure Normocytic anemia, chronic Urinary tract infection complicated with long-term Brito catheter use and history of ESBL Chronic diastolic congestive heart failure S/P pacemaker defibrillator placement History of DVT Diabetes mellitus type 2 with hypoglycemia Hypotension, h/o HTN Hyperlipidemia RA COPD Anxiety -FRANNY - pt appeared dry, likely intravascularly depleted, improved with IVF -hypotension/slight bradycardia - family brought meds in that were "all lined up", and had multiple metoprolol bottles, concern for overmedicated -restarted patient's PEG feeds on 09/06 - reportedly only takes for nutrition, can take PO/swallow -anemia - pt has chronic anemia, denies any carolann bleeding, on eliquis for DVT, h/o iron deficiency. guiaic negative in ED, s/p 2u PRBC -restart eliquis -f/u VQ scan, f/u b/l dopplers -UTI -urine dirty, has chronic brito, will cover with meropenem as patient has history of ESBL -monitor volume status closely given h/o CHF -accucheks/sliding scale insulin -PT consulted Dispo: anticipate dc home, will see how patient progresses, likely dc in 24- 48hrs Time Spent Managing Pts Care (In Minutes): 45
[2020-09-07] MEDS: INSULIN -REGULAR HUMAN 50 UNIT/0.5 ML ML SQ SCH ×4 (07:30→21:00)
[2020-09-07] MEDS: Meropenem 1 GM/100 ML BAG IV SCH ×2 (07:34→21:20)
[2020-09-07] MEDS ORDERED: D50W 25 GM/50 ML VIAL IV PRN (08:00)
[2020-09-07] MEDS: JEVITY 1.2 CAL LIQUID 1,000 ML BOT FT SCH ×5 (08:35→21:21)
[2020-09-07] MEDS: FE SULF/FA/VIT B COMP & C TAB PO SCH (08:35)
[2020-09-07 08:41] LABS: Basophils % 0.5 % (0-1.3)
[2020-09-07 09:33] LABS: RBC Red Blood Cell Count 2.64 M/uL (3.86-4.86)
[2020-09-07 09:35] LABS: Hematocrit 23.9 % (36.0-45.0)
[2020-09-07 09:36] LABS: Absolute Lymphocytes (CBC) 0.9 K/uL (0.7-4.9); Lymphocytes % 14.1 % (15.3-44.8); MPV 7.2 fL (7.6-11.3)
[2020-09-07 10:02] LABS: Urine Protein/Creatinine Ratio 2.63 ratio (<0.15)
[2020-09-07 10:26] LABS: Albumin 1.7 g/dL (3.4-5.0); Bilirubin Total 0.3 mg/dL (0.2-1.0); Magnesium 2.4 mg/dL (1.8-2.4); Potassium 3.8 mmol/L (3.5-5.1); Protein, Total 8.7 g/dL (6.4-8.2)
[2020-09-07] MEDS ORDERED: POTASSIUM 25 MEQ EFFERV TAB PO ONE (11:00)
--- NOTE | 2020-09-07 12:16 | P.PN ---
Subjective Date of Service: 09/07/20 Primary Care Provider: Dr. Galan Chief Complaint: Acute renal failure, anemia, UTI 70 yo AAF w/ PMHx of Htn, DM2, chronic diastolic HF, hyperlipidemia, RA, COPD, anxiety disorder, history of DVT on Eliquis,on chronic Rome catheterization with history of ESBL UTI, and chronic anemia, who presented with generalized weakness and hypotension, admitted for further evaluation and management, Hx of obstructive uropathy S/P Lt JJ stent in ER Cr 2.2 Today no overnight events Scheduled for PRBC will dc IVF Physical exam general: non verbal , NAD , obese Neck; Supple, No elevated JVD hear: RRR, normal S1,2 no murmur or rub Chest: CTAB, no rales or wheezes Abdomen: Soft , Nt Extremities trace edema # FRANNY 2/2 prerenal state + hypoperfusion from hypotension resolved renal ultrasound showing mild left hydronephrosis with ureteral stent in place CT scan: no hydro will dc IVF # Hypokalemia Monitor/replete when necessary # Anemia Transfuse packed RBC # Nutritiion on tube feeding via PEG # DVT Eliquis on hold # DM 2 Management per primary team Total time spent 45 min Physical Examination - Vital Signs Temperature: 96.8 F Blood Pressure: 116/54 Pulse: 87 Respirations: 18 Pulse Ox (%): 100 - Studies Microbiology Data (last 24 hrs): 09/05/20 15:30 Blood - Blood Blood Culture Gram Stain - Final 09/05/20 15:30 Blood - Blood Gram Stain - Final 09/05/20 15:45 Blood - Blood Blood Culture Gram Stain - Final
--- NOTE | 2020-09-07 15:54 | RAD REPORT ---
EXAM DESCRIPTION: CT - Chest For Pe Angio - 09/07/2020 3:28 pm CLINICAL HISTORY: R/o PE, hx of DVT, HTN COMPARISON: CTANGIO CHEST FOR PE dated 01/29/2014; Chest Single View dated 09/05/2020 TECHNIQUE: Dynamically enhanced 3 mm thick images of the chest were obtained during administration o f approximately 150mL Isovue 370 IV contrast. Coronal and oblique MIP reconstruction images were gene rated and reviewed. Exam utilizes a protocol to evaluate the pulmonary arterial tree. All CT scans are performed using dose optimization technique as appropriate and may include automated exposure control or mA/KV adjustment according to patient size. FINDINGS: No pulmonary emboli are identified. Pulmonary arteries are enlarged and have increased sin ce the 2014 comparison. The aorta as imaged shows no acute or suspicious finding. No pericardial thickening or effusion. Left ventricle is not enlarged. There is questionable thickening in the left ventricular myocardium thoug h CT imaging sensitivity is limited in evaluating this abnormality. No infiltrate or mass in the lung parenchyma. No pleural effusion or pleural thickening. Atelectasis changes are present along the posterior aspect left upper lobe and in the posterior gutter on the lef t. Minimal atelectasis in the medial right lower lung field. No mediastinal or hilar suspicious masses. No chest wall masses or abnormal axillary lymphadenopathy. IMPRESSION: No pulmonary emboli identified. Pulmonary arteries are enlarged and have increased since 2013.Correlation can be made with any other findings are history that may be indicate pulmonary artery hypertension. Questionable thickening of the left ventricular myocardium. CT sensitivity is limited in evaluating m yocardial thickening.
--- NOTE | 2020-09-07 20:36 | RAD REPORT ---
EXAM DESCRIPTION: US - Extrem Venous W Compress Александр - 09/07/2020 7:58 pm CLINICAL HISTORY: Assess for lower extremity DVTbilateral lower extremity swelling COMPARISON: None. TECHNIQUE: Real-time sonographic evaluation of the bilateral lower extremity common femoral, superfi cial femoral, popliteal and posterior tibial veins was performed. FINDINGS: Normal compressibility, flow augmentation, phasic flow and spontaneous flow are identified in the left and right lower extremity common femoral, superficial femoral, popliteal and posterior t ibial veins. No intraluminal filling defects seen. IMPRESSION: No DVT in either lower extremity.
[2020-09-07] MEDS: APIXABAN 5 MG TABLET PO SCH (21:21)
[2020-09-08 06:34] LABS: Absolute Lymphocytes (CBC) 1.3 K/uL (0.7-4.9); Basophils % 0.4 % (0-1.3); Hematocrit 24.9 % (36.0-45.0); MPV 6.9 fL (7.6-11.3); RBC Red Blood Cell Count 2.74 M/uL (3.86-4.86)
[2020-09-08 06:49] LABS: Potassium 3.7 mmol/L (3.5-5.1)
[2020-09-08] MEDS: INSULIN -REGULAR HUMAN 50 UNIT/0.5 ML ML SQ SCH ×4 (07:30→21:00)
[2020-09-08] MEDS: VANCOMYCIN 1.5 GM in NA CHLORIDE 0.9% 500 ML IVPB SCH (07:32)
[2020-09-08] MEDS: FE SULF/FA/VIT B COMP & C TAB PO SCH (07:34)
[2020-09-08] MEDS: APIXABAN 5 MG TABLET PO SCH ×2 (07:34→21:16)
[2020-09-08] MEDS: JEVITY 1.2 CAL LIQUID 1,000 ML BOT FT SCH ×5 (07:38→21:16)
[2020-09-08] MEDS: Meropenem 1 GM/100 ML BAG IV SCH ×2 (09:36→21:15)
--- NOTE | 2020-09-08 10:53 | P.PN ---
Subjective Date of Service: 09/08/20 Primary Care Provider: Dr. Galan Chief Complaint: Acute renal failure, anemia, UTI Subjective: Improving (pt reports feeling better, tired of being in the hospital. nursing staff report foul smelling thick yellow-white discharge from vaginal area. Patient denies any vaginal pain/itching.) Review of Systems 10-point ROS is otherwise unremarkable Physical Examination - Vital Signs Temperature: 96.9 F Blood Pressure: 115/67 Pulse: 89 Respirations: 17 Pulse Ox (%): 98 - Studies Microbiology Data (last 24 hrs): 09/05/20 18:32 Clean Catch Urine [place] Count - Final >100,000 CFU/ML. 09/05/20 18:32 Clean Catch Urine - Final Proteus Mirabilis Esbl Gram Neg Jose Luis Proteus Mirabilis 09/05/20 15:30 Blood - Blood Aerobic Blood Culture - Final Staph Epidermidis 09/05/20 15:30 Blood - Blood Blood Culture Gram Stain - Final 09/05/20 15:30 Blood - Blood Anaerobic Blood Culture - Final Staph Epidermidis 09/05/20 15:30 Blood - Blood Gram Stain - Final 09/05/20 15:45 Blood - Blood Blood Culture Gram Stain - Final Assessment & Plan Physician Review Additional Text: Physical Exam General: Alert, Oriented x3, some slight confusion / doesn't seem to retain much of what is said/explained to her HEENT: normal conjunctiva, sclera anicteric Respiratory: Clear to auscultation bilaterally, Normal air movement Cardiovascular: Regular rate/rhythm, Normal S1 S2, trace-1+ b/l edema to knees Gastrointestinal: soft, mild TTP suprapubic, mild distention Integumentary: b/l buttocks with excoriated skin Neurological: Normal speech, normal affect : no external rash, no discharge seen on exam. 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 Problem List Acute renal failure Normocytic anemia, chronic Urinary tract infection complicated with long-term Rome catheter use, Proteus ESBL Chronic diastolic congestive heart failure S/P pacemaker defibrillator placement History of DVT Diabetes mellitus type 2 with hypoglycemia Hypotension, h/o HTN Hyperlipidemia RA COPD Anxiety -FRANNY - pt appeared dry, likely intravascularly depleted, improved with IVF, near baseline -hypotension/slight bradycardia - family brought meds in that were "all lined up", and had multiple metoprolol bottles, concern for overmedication -restarted patient's PEG feeds on 09/06 - reportedly only takes for nutrition, can take PO/swallow -anemia - pt has chronic anemia, denies any carolann bleeding, on eliquis for DVT, h/o iron deficiency. guiaic negative in ED, s/p 2u PRBC -restarted eliquis on 09/07 evening -CTA chest negative for PE, doppler negative for DVT. CT chest does reveal increased PA diameter -Urine growing ESBL proteus; will need PICC, meropenem -Blood growing staph epidermis in all bottles, likely contaminant as it is not growing in urine, will repeat blood culture -ID consulted -monitor volume status closely given h/o CHF -G/C probe sent, transvaginal U/S ordered to r/o abscess / cyst -start flagyl 500mg BID to cover for BV -accucheks/sliding scale insulin -PT consulted Dispo: needs PICC, may benefit from SNF, will discuss further with patient and family anticipate dc in ~48hrs Time Spent Managing Pts Care (In Minutes): 35
[2020-09-08] MEDS: metroNIDAZOLE 500 MG TABLET PO SCH ×2 (11:56→21:16)
--- NOTE | 2020-09-08 14:06 | P.PN ---
Subjective Date of Service: 09/08/20 Primary Care Provider: Dr. Galan Chief Complaint: Acute renal failure, anemia, UTI 70 yo AAF w/ PMHx of Htn, DM2, chronic diastolic HF, hyperlipidemia, RA, COPD, anxiety disorder, history of DVT on Eliquis,on chronic Rome catheterization with history of ESBL UTI, and chronic anemia, who presented with generalized weakness and hypotension, admitted for further evaluation and management, Hx of obstructive uropathy S/P Lt JJ stent in ER Cr 2.2 Today no overnight events Cr stable off IVF Physical exam general: non verbal , NAD , obese Neck; Supple, No elevated JVD hear: RRR, normal S1,2 no murmur or rub Chest: CTAB, no rales or wheezes Abdomen: Soft , Nt Extremities trace edema # FRANNY 2/2 prerenal state + hypoperfusion from hypotension resolved renal ultrasound showing mild left hydronephrosis with ureteral stent in place CT scan: no hydro # Hypokalemia Monitor/replete when necessary # Anemia Transfuse packed RBC # Nutritiion on tube feeding via PEG # DVT Eliquis on hold # DM 2 Management per primary team Total time spent 45 min Physical Examination - Vital Signs Temperature: 97.8 F Blood Pressure: 121/87 Pulse: 92 Respirations: 16 Pulse Ox (%): 97 - Studies Microbiology Data (last 24 hrs): 09/05/20 18:32 Clean Catch Urine [place] Count - Final >100,000 CFU/ML. 09/05/20 18:32 Clean Catch Urine - Final Proteus Mirabilis Esbl Gram Neg Jose Luis Proteus Mirabilis 09/05/20 15:30 Blood - Blood Aerobic Blood Culture - Final Staph Epidermidis 09/05/20 15:30 Blood - Blood Blood Culture Gram Stain - Final 09/05/20 15:30 Blood - Blood Anaerobic Blood Culture - Final Staph Epidermidis 09/05/20 15:30 Blood - Blood Gram Stain - Final 09/05/20 15:45 Blood - Blood Blood Culture Gram Stain - Final
--- NOTE | 2020-09-08 20:18 | RAD REPORT ---
EXAM DESCRIPTION: US - Pelvis Complete - 09/08/2020 7:34 pm CLINICAL HISTORY: eval mass/abscess, +vaginal discharge Pelvic pain. COMPARISON: Transvaginal Study Probe dated 07/19/2019; Abdomen Pelvis Wo Contrast dated 09/05/2020; Chest For Pe Angio dated 09/07/2020 FINDINGS: The uterus appears prominent in size and heterogenous. 8.9 x 5.3 x 7.0 cm.. The endometrial stripe is poorly defined. Both ovaries are obscured by bowel gas. No adnexal masses. No significant pelvic ascites. IMPRESSION: Enlarged and heterogenous uterus could indicate adenomyosis.
[2020-09-09] MEDS: MORPHINE 2 MG/ML SYR IV PRN ×2 (01:06→20:13)
[2020-09-09 04:08] LABS: Absolute Lymphocytes (CBC) 1.4 K/uL (0.7-4.9); Basophils % 0.3 % (0-1.3); Hematocrit 25.6 % (36.0-45.0); Lymphocytes % 17.6 % (15.3-44.8); MPV 7.1 fL (7.6-11.3); RBC Red Blood Cell Count 2.83 M/uL (3.86-4.86)
[2020-09-09 04:21] LABS: BUN Blood Urea Nitrogen 17 mg/dL (7-18); Bicarbonate 25 mmol/L (21-32); Glucose Level 90 mg/dL (74-106); Potassium 3.2 mmol/L (3.5-5.1); Sodium Level 143 mmol/L (136-145)
[2020-09-09 04:22] LABS: ALT/SGPT 33 U/L (12-78); AST/SGOT 42 U/L (15-37); Albumin 1.8 g/dL (3.4-5.0); Alkaline Phosphatase 174 U/L (45-117); Bilirubin Total 0.4 mg/dL (0.2-1.0); Magnesium 1.9 mg/dL (1.8-2.4); Protein, Total 8.8 g/dL (6.4-8.2)
[2020-09-09] MEDS: INSULIN -REGULAR HUMAN 50 UNIT/0.5 ML ML SQ SCH ×4 (07:30→20:16)
[2020-09-09] MEDS: JEVITY 1.2 CAL LIQUID 1,000 ML BOT FT SCH ×5 (08:58→20:15)
[2020-09-09] MEDS: metroNIDAZOLE 500 MG TABLET PO SCH ×2 (08:59→20:13)
[2020-09-09] MEDS: Meropenem 1 GM/100 ML BAG IV SCH ×2 (08:59→20:13)
[2020-09-09] MEDS: FE SULF/FA/VIT B COMP & C TAB PO SCH (08:59)
[2020-09-09] MEDS: ENOXAPARIN 40 MG/0.4 ML SQ SCH (08:59)
[2020-09-09] MEDS ORDERED: ENOXAPARIN 30 MG/0.3 ML SQ SCH (09:00)
[2020-09-09] MEDS ORDERED: POTASSIUM 25 MEQ EFFERV TAB PO ONE ×2 (09:00→18:00)
--- NOTE | 2020-09-09 09:06 | RAD REPORT ---
EXAM DESCRIPTION: RAD - Abdomen 1 View (KUB) - 09/09/2020 7:52 am CLINICAL HISTORY: eval stool burden Pain COMPARISON: Abdomen 1 View (KUB) dated 07/15/2020; Abdomen 1 View (KUB) dated 07/08/2020; Abdomen 1 Vi ew (KUB) dated 07/21/2019; Abdomen 1 View (KUB) dated 07/21/2019 FINDINGS: There is a prominent distention of the colon with air seen. No free air present. Left-side d double-J stent is in place. IMPRESSION: Diffusely moderate to significant distention of the colon is seen with air.
--- NOTE | 2020-09-09 11:23 | CON ---
History Of Present Illness: Anita Harp is a 70-year-old female I was consulted for urinary tract in fection and sepsis. Patient has significant past medical history of congestive heart failure; diabet es mellitus; hypertension; DVT, on Eliquis; came in with a hemoglobin of 6. Patient also had low blo od pressure. Patient also has an indwelling Rome catheter and PEG tube placed. Denies any headache , nausea, vomiting, chest pain, abdominal pain, constipation, or diarrhea. Past Medical History: Diabetes mellitus, asthma, congestive heart failure, hyperlipidemia, COPD, pac emaker, defibrillator, rheumatoid arthritis, anxiety, claustrophobia, hypertension, gallbladder surge ry, partial hysterectomy, tubal ligation, PEG tube placement, indwelling Rome catheter. Social History: Nonsmoker, nondrinker. Lives with the family. Review of Systems: A 10-point review was performed. Physical Examination: General: This is a 70-year-old female, lying in bed, not in any acute cardiopulmonary distress. Vital Signs: Temperature 97, pulse 93, respirations 12, blood pressure 123/69. HEENT: Unremarkable. Neck: Supple. Lungs: Basal crackles. Heart: S1, S2. Regular. Abdomen: Distended. Bowel sounds present. Extremities: 2+ edema. Laboratory Data: WBC 8.2, hemoglobin 8.5, platelets are 415. Chemistry shows sodium 143, potassium 3.2, chloride 107, bicarb 25, BUN 20, creatinine 0.68, glucose is 90, albumin level is 1.8. Micro da ta shows the patient has Proteus mirabilis ESBL in the urine with Staph epi in blood culture, most li nathalia contaminant. Repeat blood cultures are pending. Patient is currently getting vancomycin, Merre m, and Flagyl. CT scan of her abdomen shows chronic dilation of the sigmoid colon measuring 10.5 cm. A renal ultrasound was also done on September 05, which shows mild left hydronephrosis. A chest CT for pulmonary embolism was done, which showed no pulmonary embolism. Doppler of lower extremity done anand ws no DVT. Pelvis ultrasound done shows the patient has a large and heterogeneous uterus and could i ndicate adenomyosis. KUB done today shows diffuse moderate to significant distention of the colon an d is seen with air. Assessment And Plan: A 70-year-old female with urinary tract infection secondary to extended-spectru m beta-lactamase Proteus mirabilis and a distended abdomen with enlarged sigmoid colon. Consider frandy gical evaluation. Patient also came in with severe anemia, which is being worked by the hospitalist team. Continue supportive care and monitor for signs of infection and sepsis. Consider getting an M RI of the abdomen with contrast to evaluate for any abdominal tumors. We will follow the patient marcio skipy. Thank you Dr. Collazo for consult. NF/MODL Voice ID: [id number] Report ID: [id number]
[2020-09-09] MEDS ORDERED: FLEET ENEMA ADULT PR ONE (12:46)
--- NOTE | 2020-09-09 13:18 | P.PN ---
Subjective Date of Service: 09/09/20 Primary Care Provider: Dr. Galan Chief Complaint: Acute renal failure, anemia, UTI Subjective: No new changes (patient with nausea this morning, +flatus, but no BM in 2 days. discussion with daughter yesterday - pt with vaginal bleed 1 month prior and 2 days prior to admission) Review of Systems 10-point ROS is otherwise unremarkable Physical Examination - Vital Signs Temperature: 97.2 F Blood Pressure: 144/79 Pulse: 105 Respirations: 18 Pulse Ox (%): 100 - Studies Microbiology Data (last 24 hrs): 09/05/20 15:45 Blood - Blood Aerobic Blood Culture - Final Staph Epidermidis 09/05/20 15:45 Blood - Blood Blood Culture Gram Stain - Final 09/05/20 18:32 Clean Catch Urine [place] Count - Final >100,000 CFU/ML. 09/05/20 18:32 Clean Catch Urine - Final Proteus Mirabilis Esbl Gram Neg Jose Luis Proteus Mirabilis Assessment & Plan Physician Review Additional Text: Physical Exam General: Alert, Oriented x3 HEENT: normal conjunctiva, sclera anicteric Respiratory: Clear to auscultation bilaterally, Normal air movement Cardiovascular: Regular rate/rhythm, Normal S1 S2, trace-1+ b/l edema to knees Gastrointestinal: soft, mild TTP suprapubic, mild distention Integumentary: b/l buttocks with excoriated skin Problem List Acute renal failure acute on chronic anemia, acute blood loss abnormal uterine bleeding enlarged, heterogenous uterus Hypotension, h/o HTN Urinary tract infection complicated with long-term Rome catheter use, Proteus ESBL Chronic diastolic congestive heart failure S/P pacemaker defibrillator placement History of DVT, on chronic eliquis Diabetes mellitus type 2 with hypoglycemia Hyperlipidemia RA COPD Anxiety -FRANNY - pt appeared dry, likely intravascularly depleted, improved with IVF -hypotension/slight bradycardia - family brought meds in that were "all lined up", and had multiple metoprolol bottles, concern for overmedication -restarted patient's PEG feeds on 09/06 - reportedly only takes for nutrition, ca n take PO/swallow -anemia - pt has chronic anemia -initially denied any carolann bleeding, discussion with daughter revealed abnormal uterine bleeding 1 month ago and 2 days prior to admission -transvaginal U/S done yesterday with heterogenous, enlarged uterus -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 CT chest does reveal increased PA diameter -Urine growing ESBL proteus; needs PICC, meropenem -Blood growing staph epidermis in all bottles, contaminant as it is not growing in urine. ID consulted -monitor volume status closely given h/o CHF -start flagyl 500mg BID to cover for BV - pt had thick yellow-white vaginal discharge noted by nursing -obtain KUB this morning, pt with nausea, chronic distended colon, enema -accucheks/sliding scale insulin -PT consulted Dispo: needs PICC, would benefit from SNF patient is tearful and would like to go home but states she will do what needs to be done, what is best interest to her health daughter agreeable to SNF Time Spent Managing Pts Care (In Minutes): 45
[2020-09-09 15:45] LABS: Potassium 3.1 mmol/L (3.5-5.1)
[2020-09-09] MEDS ORDERED: LORAZEPAM 0.5 MG TABLET PO ONE (20:25)
--- NOTE | 2020-09-10 00:56 | PN ---
Date of Progress Note: 09/09/2020 Chief Complaint: Acute kidney injury, anemia, urinary tract infection. History Of Present Illness: The patient is a 70-year-old woman with past medical history of diabetes mellitus, chronic diastolic congestive heart failure, hyperlipidemia, COPD, rheumatoid arthritis, an xiety disorder. The patient has history of DVT, remains on Eliquis and has chronic Rome catheter wi th history of UTI and ESBL, chronic anemia. She presented to the hospital because of weakness and hy potension. She was admitted for evaluation. On arrival to the hospital, serum was creatinine was 2. 2. Review of Systems: Denies fever or chills. The patient is feeling better. Physical Examination: Lungs: Diminished breath sounds at bases. Heart: S1, S2. Abdomen: Soft, benign. Extremities: Trace edema. Impression And Plan: 1.Acute kidney injury and prerenal azotemia secondary to hypotension and volume depletion. Renal ul trasound showed mild left hydronephrosis with ureteric stent in place. CT scan did not show hydronep hrosis. Monitor for any evidence of urinary tract infection. Continue antibiotics. 2.Hypokalemia. Monitor magnesium level and continue replacement of potassium as needed. 3.Anemia, status post transfusion. Monitor hemoglobin level. Eliquis is on hold due to anemia. 4.Urinary tract infection. The patient has Rome catheter. Continue antibiotic as started. KLAUDIA/MODL Voice ID: [id number] Report ID: [id number]
[2020-09-10 04:40] LABS: Absolute Lymphocytes (CBC) 1.6 K/uL (0.7-4.9); Basophils % 0.3 % (0-1.3); Hematocrit 23.5 % (36.0-45.0); Lymphocytes % 21.9 % (15.3-44.8); MPV 7.2 fL (7.6-11.3); RBC Red Blood Cell Count 2.59 M/uL (3.86-4.86)
[2020-09-10 05:14] LABS: BUN Blood Urea Nitrogen 17 mg/dL (7-18); Bicarbonate 27 mmol/L (21-32); Glucose Level 102 mg/dL (74-106); Magnesium 1.8 mg/dL (1.8-2.4); Sodium Level 143 mmol/L (136-145)
[2020-09-10 05:25] LABS: Potassium 2.9 mmol/L (3.5-5.1)
[2020-09-10] MEDS ORDERED: KCL 20 MEQ/100 mL IVPB 20 MEQ/100 ML BAG IV ONE (06:34)
[2020-09-10] MEDS ORDERED: SILVER NITRATE 1 APPL TOP ONE ×2 (06:48→07:14)
[2020-09-10] MEDS: KCL 20 MEQ/100 mL IVPB 20 MEQ/100 ML BAG IV SCH ×4 (07:00→21:49)
[2020-09-10] MEDS: INSULIN -REGULAR HUMAN 50 UNIT/0.5 ML ML SQ SCH ×4 (07:30→20:20)
[2020-09-10] MEDS ORDERED: MAGNESIUM SULFATE 1 gm IVPB 1 GM/100 ML BAG IV ONE (09:00)
[2020-09-10] MEDS: metroNIDAZOLE 500 MG TABLET PO SCH ×2 (09:36→20:18)
[2020-09-10] MEDS: FE SULF/FA/VIT B COMP & C TAB PO SCH (09:36)
[2020-09-10] MEDS: ENOXAPARIN 40 MG/0.4 ML SQ SCH (09:36)
[2020-09-10] MEDS: Meropenem 1 GM/100 ML BAG IV SCH ×2 (09:36→20:18)
[2020-09-10] MEDS: JEVITY 1.2 CAL LIQUID 1,000 ML BOT FT SCH ×5 (09:37→20:19)
--- NOTE | 2020-09-10 10:04 | P.PN ---
Subjective Date of Service: 09/10/20 Primary Care Provider: Dr. Galan Chief Complaint: Acute renal failure, anemia, UTI Patient seen examined at bedside, on WBC within normal range. Vitals: Patient's tachycardic with a pulse of 102, afebrile with a T-max 97.1. Patient is requesting to go home. Review of Systems 10-point ROS is otherwise unremarkable Physical Examination - Vital Signs Temperature: 97.1 F Blood Pressure: 118/58 Pulse: 102 Respirations: 18 Pulse Ox (%): 98 - Physical Exam General: Alert, In no apparent distress HEENT: Atraumatic, Normocephalic Neck: Supple, 2+ carotid pulse no bruit Respiratory: Clear to auscultation bilaterally, Normal air movement Cardiovascular: No edema, Normal pulses Capillary refill: <2 Seconds Gastrointestinal: Normal bowel sounds Musculoskeletal: No clubbing, No swelling, No contractures - Studies Laboratory Last Values WBC 9.90 K/uL (4.3-10.9) 09/05/20 15:30 RBC 1.93 M/uL (3.86-4.86) L 09/05/20 15:30 Hgb 6.0 g/dL (12.0-15.0) L* 09/05/20 15:30 Hct 17.5 % (36.0-45.0) L* 09/05/20 15:30 MCV 90.8 fL (80-100) 09/05/20 15:30 MCH 31.2 pg (27.0-35.0) 09/05/20 15:30 MCHC 34.3 g/dL (32.0-36.0) 09/05/20 15:30 RDW 16.4 % (12.1-15.2) H 09/05/20 15:30 Plt Count 423 K/uL (152-406) H 09/05/20 15:30 MPV 7.2 fL (7.6-11.3) L 09/05/20 15:30 Neutrophils % 81.6 % (41.7-73.7) H 09/05/20 15:30 Lymphocytes % 8.9 % (15.3-44.8) L 09/05/20 15:30 Monocytes % 8.2 % (3.3-12.3) 09/05/20 15:30 Eosinophils % 1.1 % (0-4.4) 09/05/20 15:30 Basophils % 0.2 % (0-1.3) 09/05/20 15:30 Absolute Neutrophils 8.0 K/uL (1.8-8.0) 09/05/20 15:30 Absolute Lymphocytes 0.9 K/uL (0.7-4.9) 09/05/20 15:30 Absolute Monocytes 0.8 K/uL (0.1-1.3) 09/05/20 15:30 Absolute Eosinophils 0.1 K/uL (0-0.5) 09/05/20 15:30 Absolute Basophils 0.0 K/uL (0-0.5) 09/05/20 15:30 PT 29.6 SECONDS (9.5-12.5) H 09/05/20 15:30 INR 2.55 09/05/20 15:30 Sodium 128 mmol/L (136-145) L 09/05/20 15:30 Potassium 3.8 mmol/L (3.5-5.1) 09/05/20 15:30 Chloride 97 mmol/L (98-107) L 09/05/20 15:30 Carbon Dioxide 23 mmol/L (21-32) 09/05/20 15:30 BUN 56 mg/dL (7-18) H 09/05/20 15:30 Creatinine 2.23 mg/dL (0.55-1.3) H 09/05/20 15:30 Estimated GFR 26 mL/min (=/>90) L 09/05/20 15:30 Glucose 92 mg/dL (74-106) 09/05/20 15:30 Lactic Acid 1.1 mmol/L (0.4-2.0) 09/05/20 15:30 Calcium 8.6 mg/dL (8.5-10.1) 09/05/20 15:30 Magnesium 2.5 mg/dL (1.8-2.4) H D 09/05/20 15:30 Iron 27.0 ug/dL (50-170) L 09/05/20 15:30 TIBC 119 ug/dL (250-460) L 09/05/20 15:30 Transferrin 85 mg/dL (200-360) L 09/05/20 15:30 Transferrin % Sat 22.7 % (20.0-50.0) 09/05/20 15:30 Ferritin 2674.0 ng/mL (8-388) H 09/05/20 15:30 Total Bilirubin 0.4 mg/dL (0.2-1.0) 09/05/20 15:30 Direct Bilirubin 0.2 mg/dL (0-0.2) 09/05/20 15:30 AST 30 U/L (15-37) 09/05/20 15:30 ALT 30 U/L (12-78) 09/05/20 15:30 Alkaline Phosphatase 127 U/L (45-117) H 09/05/20 15:30 Rapid Troponin I < 0.02 ng/mL (0.0-0.045) 09/05/20 15: NT-Pro-B Natriuret Pep 966 pg/mL (<125) H 09/05/20 15:30 Serum Total Protein 9.0 g/dL (6.4-8.2) H 09/05/20 15:30 Albumin 1.7 g/dL (3.4-5.0) L 09/05/20 15:30 Globulin 7.3 g/dL (2.3-3.5) H 09/05/20 15:30 Albumin/Globulin Ratio 0.2 (1.1-1.8) L 09/05/20 15:30 Procalcitonin 0.40 ng/mL (<0.050) H 09/05/20 15:30 Urine Color Yellow (Yellow) 09/05/20: Urine Appearance Turbid (Clear) 09/05/20 18: Urine pH 5.5 (5.0-7.0) 09/05/20 18: Ur Specific [place] <=1.005 (1.005-1.030) 09/05/20 18: Glucose (UA)(Auto) Negative (Negative) 09/05/20 18: Urine Ketones Negative (Negative) 09/05/20 18: Urine Blood 3+ (Negative) H 09/05/20 18:32 Urine Nitrite Negative (Negative) 09/05/20 18: Urine Bilirubin Negative (Negative) 09/05/20 18: Urine Urobilinogen 0.2 mg/dL (0.2-1.0) 09/05/20 18:32 Ur Leukocyte Esterase 3+ (Negative) H 09/05/20 18:32 Urine RBC 5-10 /HPF (NONE SEEN) H 09/05/20 18:32 Urine WBC 20-50 /HPF (<5) H 09/05/20 18:32 Ur Squamous Epith Cells <5 /HPF (NONE SEEN) 09/05/20 18:32 Ur Urothelial Cells Cancelled 09/05/20 18:30 Calcium Oxalate Crystal Cancelled 09/05/20 18:30 Uric Acid Crystals Cancelled 09/05/20 18:30 Triple Phos Crystals Cancelled 09/05/20 18:30 Other Crystals Cancelled 09/05/20 18:30 Amorphous Sediment Cancelled 09/05/20 18:30 Glitter Cells Cancelled 09/05/20 18:30 Urine Bacteria >50 /HPF (<20) H 09/05/20 18:32 Hyaline Casts Cancelled 09/05/20 18:30 Fine Granular Casts Cancelled 09/05/20 18:30 Coarse Granular Casts Cancelled 09/05/20 18:30 Waxy Casts Cancelled 09/05/20 18:30 RBC Casts Cancelled 09/05/20 18:30 WBC Casts Cancelled 09/05/20 18:30 Urine Mucus Cancelled 09/05/20 18:30 Urine Other Cancelled 09/05/20 18:30 Urine Trichomonas Cancelled 09/05/20 18:30 Urine Yeast Cancelled 09/05/20 18:30 Ur Yeast w Hyphae Cancelled 09/05/20 18:30 Urine Yeast (Budding) Cancelled 09/05/20 18:30 Urine Sperm Cancelled 09/05/20 18:30 Ur Microscopic Review Cancelled 09/05/20 18:32 Urine Culture Reflexed Reflexed 09/05/20 18:32 Urine Total Volume Cancelled 09/05/20 18:30 Urine Total Protein Trace (Negative) H 09/05/20 18:32 SARS-CoV-2 RNA (RT-PCR) Negative (NEGATIVE) 09/05/20 15:30 ABO/Rh O POSITIVE 09/05/20 17:23 Solid Phase Ab Screen Negative 09/05/20 17:23 Crossmatch See Detail 09/05/20 17:23 Microbiology Data (last 24 hrs): 09/05/20 15:45 Blood - Blood Blood Culture Gram Stain - Final Assessment And Plan - Plan Antibiotics: Flagyl Start: 09/08 stop: 09/15 Meropenem Start: 09/06 stop: 09/20 Assessment: ESBL urinary tract infection Anemia Obesity Plan: -continue IV meropenem for a total duration of 2 weeks given patient's the current history of urinary tract infections. Right arm PICC line placed. -blood cultures: Blood cultures taken on 09/05 2 bottles grew Staph epi 1 bottle grew Staph hominis and 1 bottle show no growth. This is likely due continue contamination. Patient empirically covered with meropenem. Repeat blood cultures taken on 09/08 showed no growth -medical management per primary team -continue monitor CBC and BMP -continue to monitor temperature curve Plan of care discussed with Dr. Chawla
--- NOTE | 2020-09-10 10:22 | RAD REPORT ---
EXAM DESCRIPTION: RAD - Chest Single View - 09/09/2020 9:54 pm CLINICAL HISTORY: PICC line placement. COMPARISON: None. TECHNIQUE: Single view AP chest radiograph(s). FINDINGS: Right PICC terminates in the proximal SVC. Low lung volumes with mild to moderate diffuse pulmonary interstitial thickening. No pleural effusion. No pneumothorax. Mild cardiomegaly. Single-ch shan AICD. No significant osseous abnormality. Moderate gaseous distention of bowel loops in the upp er abdomen. IMPRESSION: 1. Right PICC terminates in the proximal SVC. 2. Mild to moderate diffuse pulmonary interstitial thickening. 3. Mild cardiomegaly. 4. Moderate gaseous distention of bowel loops in the upper abdomen. Electronically signed by: Ana To MD 09/09/2020 10:23 PM CDT Due to temporary technical issues with the PACS/Fluency reporting system, reports are being signed by the in house radiologist without review as a courtesy to ensure prompt reporting. The interpreting r adiologist is fully responsible for the content of the report.
--- NOTE | 2020-09-10 10:42 | CON ---
History Of Present Illness: The patient has been admitted. She has a variety of problems including history of deep vein thrombosis and is not on any coagulant medications. She has been bleeding from the vagina and the ultrasound demonstrates an enlarged uterus. Radiology was thinking she might have adenomyosis, but of course this is highly unlikely in a 70-year-old. The possibility for endometria l cancer is quite high in this individual. The patient herself is alert, but extremely hesitant and in fact declines the biopsy. I talked to her for 10-15 minutes. She used the word, I am scared of t he words. I am scared at least 40 times. I reassured her that if the procedure was too uncomfortabl e, we could stop, but she did not want to even start. She will be in the hospital the next few days. I told her that if she changes her mind, we can do it later today or tomorrow or sometime this week if she chooses or if she is dismissed, she can come to my office and do it on outpatient basis. She is a very sweet lady, but she is just extremely hesitant to do a biopsy. She says this is her daugh ter's idea, which I am sure it probably was along with the other medical staff and of course is a goo d idea, but cannot be done today. It would be difficult to sedate her and given her medical conditio n, she could of course be given some Motrin before she comes to the biopsy, but all of this was discu ssed and declined. I think we have to work with a presumption if she has endometrial cancer until pr oven otherwise and she is not a good candidate for surgery, so at this point, supportive therapy I th ink is probably the best we can offer this patient. She will discuss it with her family the next few days, although she made it quite clear that she is the one who makes the decisions. If she changes her mind, I am available. I left all the equipment for doing the biopsy, but we will see what she de cides over the next few days. Diagnosis: Probable endometrial cancer, biopsy declined. EDILBERTO/NATE Voice ID: [id number] Report ID: [id number]
--- NOTE | 2020-09-10 11:45 | PN ---
Date of Progress Note: 09/10/2020 Subjective: The patient was admitted with acute kidney injury, depleted electrolytes. Upon admissio n, creatinine was 2.2, currently normalized. The patient still has some depletion in her potassium. Physical Examination: Vital Signs: Blood pressure 118/58, pulse of 102, afebrile. The patient had good urine output of 25 00, positive balance. Chest: Decreased entry bilateral base. Heart: S1, S2. Systolic murmur. Abdomen: Soft, nontender. PEG tube in place. EXTREMITIES: Trace edema. Neuro: Confused pleasantly. No focality. Laboratory Data: Sodium 143, potassium 2.9, bicarb 27, BUN 17, creatinine 0.6, calcium 8.5, magnesiu m 1.8. WBC 7.2, H and H 7.8/23.5. Current Medications: The patient on include; 1.Meropenem. 2.Flagyl. 3.Tylenol. 4.Jevity. 5.Magnesium oxide. 6.KCl. Assessment And Plan: 1.Acute kidney injury secondary to prerenal, recovered, resolved. We will monitor the patient. The patient looked to me on the normal volume side currently. We will hold all IV fluids. 2.Hypokalemia, hypomagnesemia. We will supplement. 3.Urinary tract infection ESBL. I agree with meropenem. We will monitor the patient. 4.Obstructive uropathy, complicated urinary tract infection with the presence of the stent before. The patient being on current antibiotic for the last 4 days. I am going to repeat the UA to see if i t is clearing up. Currently, the patient is stable hemodynamically. We will follow up. If the urin neisha tract infection do not clear up and any instability, the patient may need Urology for evaluation for stent exchange. RACHELLE/NATE Voice ID: [id number] Report ID: [id number]
[2020-09-10] MEDS ORDERED: KCL 20 MEQ/100 mL IVPB 20 MEQ/100 ML BAG IV SCH (12:00)
[2020-09-10 14:31] LABS: Urine Appearance TURBID (Clear); Urine Bilirubin NEGATIVE (Negative); Urine Blood 3+ (Negative); Urine Color DK YELLOW (Yellow); Urine Glucose NEGATIVE (Negative); Urine Protein 2+ (Negative); Urine Specific Gravity 1.015 (1.005-1.030); Urine pH 5.5 (5.0-7.0)
[2020-09-10 14:33] LABS: Urine Microscopic Reflex ORDER UMIC
[2020-09-10 15:46] LABS: Urine RBC TNTC /HPF (NONE SEEN)
[2020-09-10 15:47] LABS: Urine Bacteria 20-50 /HPF (<20); Urine Yeast PRESENT (NONE SEEN)
--- NOTE | 2020-09-10 16:28 | P.PN ---
Subjective Date of Service: 09/10/20 Primary Care Provider: Dr. Galan Chief Complaint: Acute renal failure, anemia, UTI Patient refused endometrial biopsy this morning stating she was scared. She is alert and oriented x4, and aware of the situation. She voiced understanding of risk of not proceeding with the procedure. She wants to go home. Physical Examination - Vital Signs Temperature: 97.2 F Blood Pressure: 128/71 Pulse: 103 Respirations: 16 Pulse Ox (%): 98 - Physical Exam General: Alert, In no apparent distress, Other (Emotional) HEENT: Mucous membr. moist/pink Neck: JVD not distended Respiratory: Clear to auscultation bilaterally, Normal air movement Cardiovascular: Regular rate/rhythm, Normal S1 S2 Gastrointestinal: Normal bowel sounds, Soft and benign, Non-distended, No tenderness Musculoskeletal: No swelling Integumentary: No rashes Neurological: Other (No focal motor deficit) - Studies Microbiology Data (last 24 hrs): 09/05/20 15:45 Blood - Blood Blood Culture Gram Stain - Final 09/05/20 15:45 Blood - Blood Anaerobic Blood Culture - Final No growth in 5 days. Assessment And Plan Physician Review Additional Text: Physical Exam General: Alert, Oriented x3 HEENT: normal conjunctiva, sclera anicteric Respiratory: Clear to auscultation bilaterally, Normal air movement Cardiovascular: Regular rate/rhythm, Normal S1 S2, trace-1+ b/l edema to knees Gastrointestinal: soft, mild TTP suprapubic, mild distention Integumentary: b/l buttocks with excoriated skin Problem List Acute renal failure acute on chronic anemia, acute blood loss abnormal uterine bleeding enlarged, heterogenous uterus Hypotension, h/o HTN Urinary tract infection complicated with long-term Rome catheter use, Proteus ESBL Chronic diastolic congestive heart failure S/P pacemaker defibrillator placement History of DVT, on chronic eliquis Diabetes mellitus type 2 with hypoglycemia Hyperlipidemia RA COPD Anxiety -FRANNY resolved -hypotension/slight bradycardia - family brought meds in that were "all lined up", and had multiple metoprolol bottles, concern for overmedication. -blood pressure is stable. -continue PEG tube feeding. -anemia - pt has chronic anemia -initially denied any carolann bleeding, discussion with daughter revealed abnormal uterine bleeding 1 month ago and 2 days prior to admission. -transvaginal U/S done yesterday with heterogenous, enlarged uterus -patient refused endometrial biopsy today. Family convinced her to do it and she is now agreeable. -Dr. Buenrostro contacted who agrees to do the procedure tomorrow morning. -h/o iron deficiency, guiaic negative in ED -received 2u PRBC -eliquis is on hold in anticipation for the endometrial biopsy. Check PT/INR today. -CTA chest negative for PE, doppler negative for DVT. CT chest does reveal increased PA diameter. -need to discuss risk and benefit of Eliquis with family. Whether to continuing in the context of urethral bleeding -Urine growing ESBL proteus; PICC line placed for outpatient IV antibiotics. Infectious disease recommended 2 weeks of IV meropenem/Invanz. -Blood growing staph epidermis in all bottles. These are skin contaminants per ID. -continue flagyl 500mg BID to cover for BV - pt had thick yellow-white vaginal discharge noted by nursing -accucheks/sliding scale insulin -continue PT. -CT abdomen also reports distended sigmoid colon. -Will consult GI to evaluate. Dispo: Social service to explore the option SNF placement for PT.
[2020-09-10 18:55] LABS: Potassium 2.9 mmol/L (3.5-5.1)
[2020-09-11] MEDS: KCL 20 MEQ/100 mL IVPB 20 MEQ/100 ML BAG IV SCH ×4 (00:45→13:01)
[2020-09-11] MEDS ORDERED: LORazepam 2 MG/ML VIAL IV ONE ×2 (02:04→06:21)
[2020-09-11 05:57] LABS: Albumin 1.8 g/dL (3.4-5.0); BUN Blood Urea Nitrogen 14 mg/dL (7-18); Bicarbonate 26 mmol/L (21-32); Glucose Level 86 mg/dL (74-106); Magnesium 1.8 mg/dL (1.8-2.4); Phosphorus 2.1 mg/dL (2.5-4.9); Sodium Level 144 mmol/L (136-145)
[2020-09-11 05:58] LABS: Potassium 2.9 mmol/L (3.5-5.1)
[2020-09-11] MEDS ORDERED: LORazepam 2 MG/ML VIAL ONE (06:45)
[2020-09-11] MEDS ORDERED: POTASSIUM CL 40 MEQ in NA CHLORIDE 0.9% 500 ML IV SCH ×2 (07:00→10:00)
[2020-09-11] MEDS: INSULIN -REGULAR HUMAN 50 UNIT/0.5 ML ML SQ SCH ×4 (07:30→21:00)
[2020-09-11] MEDS: Meropenem 1 GM/100 ML BAG IV SCH ×2 (09:26→20:06)
[2020-09-11] MEDS: metroNIDAZOLE 500 MG TABLET PO SCH ×2 (09:27→20:06)
[2020-09-11] MEDS: FE SULF/FA/VIT B COMP & C TAB PO SCH (09:27)
[2020-09-11] MEDS: VENLAFAXINE HCL XR 75 MG CAP PO SCH (09:27)
[2020-09-11] MEDS: ENOXAPARIN 40 MG/0.4 ML SQ SCH (09:27)
[2020-09-11] MEDS: JEVITY 1.2 CAL LIQUID 1,000 ML BOT FT SCH ×6 (09:28→20:40)
[2020-09-11] MEDS ORDERED: Magnesium Sulfate 2gm IVPB 2 G/50 ML BAG IV ONE (09:48)
[2020-09-11] MEDS ORDERED: POTASSIUM CL SA 10 MEQ TAB PO ONE (09:49)
[2020-09-11] MEDS ORDERED: POTASSIUM PHOS 20 MM in NA CHLORIDE 0.9% 500 ML IV ONE (09:49)
--- NOTE | 2020-09-11 10:17 | P.PN ---
Subjective Date of Service: 09/11/20 Primary Care Provider: Dr. Galan Chief Complaint: Acute renal failure, anemia, UTI Patient seen examined at bedside, resting comfortably. Tolerating antibiotics well. Review of Systems 10-point ROS is otherwise unremarkable Physical Examination - Vital Signs Temperature: 98.3 F Blood Pressure: 103/57 Pulse: 93 Respirations: 15 Pulse Ox (%): 97 - Studies Active Medications Acetaminophen (Acetaminophen 500 Mg Tab) 500 mg PO Q4HP PRN PRN Reason: TEMP > 100' F Dextrose (D50w 25 Gm/50 Ml Vial) 12.5 gm IV PRN PRN; Protocol PRN Reason: HYPOGLYCEMIA Enoxaparin Sodium (Enoxaparin 40 Mg/0.4 Ml) 40 mg SQ DAILY MARIAM Last Admin: 09/11/20 09:27 Dose: 40 mg Documented by: Glucagon (Glucagon 1 Mg/Vial) 1 mg IM 1X PRN; Protocol PRN Reason: HYPOGLYCEMIA Meropenem (Merrem 1 Gm/100 Ml Ns Ivpb) 1 gm in 100 mls @ 200 mls/hr IV Q12HR MARIAM Last Admin: 09/11/20 09:26 Dose: 100 mls Documented by: Potassium Chloride (Kcl 20 Meq/100 Ml Ivpb (Premix)) 20 meq in 100 mls @ 50 mls/hr IV Q2H MARIAM; Protocol Stop: 09/11/20 12:59 Last Admin: 09/11/20 09:27 Dose: 100 mls Documented by: Magnesium Sulfate (Magnesium Sulfate 2 Gm/50ml Ivpb (Premix)) 2 g in 50 mls @ 50 mls/hr IV 1X ONE Stop: 09/11/20 10:47 Potassium Chloride 40 meq/ (Sodium Chloride) 500 mls @ 125 mls/hr IV 1X MARIAM; Protocol Stop: 09/11/20 13:59 Potassium Phosphate 20 mm/ (Sodium Chloride) 500 mls @ 125 mls/hr IV 1X ONE; Protocol Stop: 09/11/20 13:48 Insulin Human Regular (Insulin -Regular Human 50 Unit/0.5 Ml Ml) 0 unit SQ ACHS MARIAM; Protocol Last Admin: 09/11/20 07:30 Dose: Not Given Documented by: Metronidazole (Metronidazole 500 Mg Tablet) 500 mg PO BID MARIAM; Protocol Stop: 09/15/20 11:01 Last Admin: 09/11/20 09:27 Dose: 500 mg Documented by: Morphine Sulfate (Morphine 2 Mg/Ml Syr) 2 mg IV Q6H PRN PRN Reason: Pain scale 5-7 (Moderate) Last Admin: 09/09/20 20:13 Dose: 2 mg Documented by: Multivitamins/Iron (Fe Sulf/Fa/Vit B Comp & C Tab) 1 tab PO DAILY WITH BREAKFAST [facility] Last Admin: 09/11/20 09:27 Dose: 1 tab Documented by: Ondansetron HCl (Ondansetron 4 Mg/2 Ml Vial) 4 mg IV Q6HP PRN PRN Reason: NAUSEA / VOMITING Last Admin: 09/09/20 04:14 Dose: 4 mg Documented by: Sodium Chloride (Flush Normal Saline 10 Ml) 10 ml IV BID [facility] Last Admin: 09/11/20 09:00 Dose: 10 ml Documented by: Venlafaxine HCl (Venlafaxine Hcl Xr 75 Mg Cap) 150 mg PO DAILY [facility] Last Admin: 09/11/20 09:27 Dose: 150 mg Documented by: Microbiology Data (last 24 hrs): 09/05/20 15:45 Blood - Blood Blood Culture Gram Stain - Final 09/05/20 15:45 Blood - Blood Anaerobic Blood Culture - Final No growth in 5 days. Assessment And Plan - Plan General: Alert, In no apparent distress HEENT: Atraumatic, Normocephalic Neck: Supple, 2+ carotid pulse no bruit Respiratory: Clear to auscultation bilaterally, Normal air movement Cardiovascular: No edema, Normal pulses Capillary refill: <2 Seconds Gastrointestinal: Normal bowel sounds Musculoskeletal: No clubbing, No swelling, No contractures Antibiotics: Flagyl Start: 09/08 stop: 09/15 Meropenem Start: 09/06 stop: 09/20 Assessment: ESBL urinary tract infection Anemia Obesity Plan: -continue IV meropenem for a total duration of 2 weeks given patient's the current history of urinary tract infections. Right arm PICC line placed. -blood cultures: Blood cultures taken on 09/05 2 bottles grew Staph epi 1 bottle grew Staph hominis and 1 bottle show no growth. This is likely due continue contamination. Patient empirically covered with meropenem. Repeat blood cultures taken on 09/08 showed no growth -medical management per primary team -continue monitor CBC and BMP -continue to monitor temperature curve Plan of care discussed with Dr. Chawla Physician Review Additional Text: Physical Exam General: Alert, Oriented x3 HEENT: normal conjunctiva, sclera anicteric Respiratory: Clear to auscultation bilaterally, Normal air movement Cardiovascular: Regular rate/rhythm, Normal S1 S2, trace-1+ b/l edema to knees Gastrointestinal: soft, mild TTP suprapubic, mild distention Integumentary: b/l buttocks with excoriated skin Problem List Acute renal failure acute on chronic anemia, acute blood loss abnormal uterine bleeding enlarged, heterogenous uterus Hypotension, h/o HTN Urinary tract infection complicated with long-term Rome catheter use, Proteus ESBL Chronic diastolic congestive heart failure S/P pacemaker defibrillator placement History of DVT, on chronic eliquis Diabetes mellitus type 2 with hypoglycemia Hyperlipidemia RA COPD Anxiety -FRANNY resolved -hypotension/slight bradycardia - family brought meds in that were "all lined up", and had multiple metoprolol bottles, concern for overmedication. -blood pressure is stable. -continue PEG tube feeding. -anemia - pt has chronic anemia -initially denied any carolann bleeding, discussion with daughter revealed abnormal uterine bleeding 1 month ago and 2 days prior to admission. -transvaginal U/S done yesterday with heterogenous, enlarged uterus -patient refused endometrial biopsy today. Family convinced her to do it and she is now agreeable. -Dr. Buenrostro contacted who agrees to do the procedure tomorrow morning. -h/o iron deficiency, guiaic negative in ED -received 2u PRBC -eliquis is on hold in anticipation for the endometrial biopsy. Check PT/INR today. -CTA chest negative for PE, doppler negative for DVT. CT chest does reveal increased PA diameter. -need to discuss risk and benefit of Eliquis with family. Whether to continuing in the context of urethral bleeding -Urine growing ESBL proteus; PICC line placed for outpatient IV antibiotics. Infectious disease recommended 2 weeks of IV meropenem/Invanz. -Blood growing staph epidermis in all bottles. These are skin contaminants per ID. -continue flagyl 500mg BID to cover for BV - pt had thick yellow-white vaginal discharge noted by nursing -accucheks/sliding scale insulin -continue PT. -CT abdomen also reports distended sigmoid colon. -Will consult GI to evaluate. Dispo: Social service to explore the option SNF placement for PT.
--- NOTE | 2020-09-11 11:43 | CON ---
The patient apparently agreed to the biopsy, which she declined yesterday. However, she is not as anjali lionel today as she was yesterday. Said there were snakes in room last night. The patient was prepped and draped. She is extremely fragile. Her perineum is swelling. The speculum was placed and the ce rvix was clean. Very difficult visualization. At that point, the patient had an episode of explosiv e diarrhea that contaminated basically all of our instruments. Cannot do the biopsy on this patient. I think that the only other option would be an exam under anesthesia, which I think would be very r isky considering the patient's fragile condition with the next step is would be up to the family. We can get consult with MD Adams, but at this point, the biopsy is not possible. EDILBERTO/NATE Voice ID: [id number] Report ID: [id number]
[2020-09-11 12:12] LABS: Protime INR 1.43
[2020-09-11 12:14] LABS: Absolute Lymphocytes (CBC) 1.5 K/uL (0.7-4.9); Basophils % 0.7 % (0-1.3); Hematocrit 22.2 % (36.0-45.0); Lymphocytes % 24.7 % (15.3-44.8); MPV 7.4 fL (7.6-11.3); RBC Red Blood Cell Count 2.43 M/uL (3.86-4.86)
--- NOTE | 2020-09-11 12:22 | PN ---
Date of Progress Note: 09/11/2020 Subjective: The patient was admitted with acute kidney injury, depleted electrolyte. The patient co ntinued to have diarrhea. Physical Examination: Vital Signs: When I saw the patient; blood pressure 103/57, pulse of 93, afebrile. The patient had good urine output of 950. Chest: Clear to auscultation. Heart: S1, S2. Regular. Abdomen: PEG tube. Extremity: No edema. Neuro: Moving 4 extremities. No focality. Laboratory Data: WBC 7.2, H and H 7.8/23.5. Sodium 144, potassium 2.9, bicarb 26, BUN 14, creatinin e 0.6, calcium 8.3, phosphorus 2.1, magnesium 1.8. Assessment And Plan: 1.Acute kidney injury secondary to prerenal, recovered, resolved. The patient off IV fluid. We kay l monitor. 2.Hypokalemia. The patient received 60 mEq yesterday and still depleted. The patient has persisten t diarrhea. I am going to go ahead and replace her magnesium, replace potassium and phosphorus for t sampson. 3.Hypomagnesemia and hypophosphatemia. Continue supplement. 4.Urinary tract infection with ESBL. Continue current antibiotic. 5.Complicated obstructive uropathy. We will follow up the clinical improvement to decide if the pat ient down in the road will need stent exchange. 6.Hypernatremia. I am going to adjust the free water on tube feeding and we will follow up. DAVIS Voice ID: [id number] Report ID: [id number]
--- NOTE | 2020-09-11 15:55 | P.PN ---
Subjective Date of Service: 09/11/20 Primary Care Provider: Dr. Galan Chief Complaint: Acute renal failure, anemia, UTI Another attempt at endometrial biopsy this morning was unsuccessful. Patient apparently moved her bowel on the table, just before the procedure. Her hemoglobin dropped to 7.4. She has no other complain. Physical Examination - Vital Signs Temperature: 97.0 F Blood Pressure: 106/67 Pulse: 90 Respirations: 15 Pulse Ox (%): 99 - Physical Exam General: Alert, In no apparent distress, Oriented x3 Neck: JVD not distended Respiratory: Clear to auscultation bilaterally, Normal air movement Cardiovascular: No edema, Regular rate/rhythm, Normal S1 S2 Gastrointestinal: Normal bowel sounds, Soft and benign, Non-distended, No tenderness Musculoskeletal: No swelling Integumentary: No rashes Neurological: Normal strength at 5/5 x4 extr - Studies Microbiology Data (last 24 hrs): 09/05/20 15:45 Blood - Blood Blood Culture Gram Stain - Final 09/05/20 15:45 Blood - Blood Anaerobic Blood Culture - Final No growth in 5 days. Assessment And Plan Physician Review Additional Text: Problem List Acute renal failure acute on chronic anemia, acute blood loss abnormal uterine bleeding enlarged, heterogenous uterus Hypotension, h/o HTN Urinary tract infection complicated with long-term Rome catheter use, Proteus ESBL Chronic diastolic congestive heart failure S/P pacemaker defibrillator placement History of DVT, on chronic eliquis Diabetes mellitus type 2 with hypoglycemia Hyperlipidemia RA COPD Anxiety -FRANNY resolved -hypotension/slight bradycardia - family brought meds in that were "all lined up", and had multiple metoprolol bottles, concern for overmedication. -blood pressure is stable. -continue PEG tube feeding. -anemia - pt has chronic anemia. Hemoglobin dropped further. Present given 1 unit PRBC transfusion given history of abnormal uterine bleed. -initially denied any carolann bleeding, discussion with daughter revealed abnormal uterine bleeding 1 month ago and 2 days prior to admission. -transvaginal U/S: heterogenous, enlarged uterus -attempt at endometrial biopsy unsuccessfulx 2. -this can be done as an outpatient. -h/o iron deficiency, guiaic negative in ED -received 2u PRBC. -transfuse 1 more unit -CTA chest negative for PE, doppler negative for DVT. -Eliquis discontinued given her high risk of bleeding and negative PE and DVT -Urine growing ESBL proteus; PICC line placed for outpatient IV antibiotics. Infectious disease recommended 2 weeks of IV meropenem or Invanz. -Blood growing staph epidermis in all bottles. These are skin contaminants per ID. -continue flagyl 500mg BID to cover for BV - pt had thick yellow-white vaginal discharge noted by nursing -accucheks/sliding scale insulin -continue PT. -CT abdomen also reports distended sigmoid colon which is chronic - Dispo: Disposition to SNF for skilled rehab.
[2020-09-11] MEDS: NA CHLORIDE 0.9% 250 ML IV SCH (19:55)
[2020-09-11] MEDS ORDERED: NA CHLORIDE 0.9% 250 ML IV SCH (20:00)
[2020-09-11] MEDS ORDERED: POTASSIUM 25 MEQ EFFERV TAB PO ONE (23:10)
[2020-09-11] MEDS ORDERED: HALOPERIDOL LACT 5 MG/ML INJ IV ONE (23:19)
[2020-09-12 00:43] LABS: Hematocrit 24.7 % (36.0-45.0)
[2020-09-12 06:27] LABS: Absolute Lymphocytes (CBC) 1.5 K/uL (0.7-4.9); Basophils % 0.7 % (0-1.3); Hematocrit 23.3 % (36.0-45.0); Lymphocytes % 19.5 % (15.3-44.8); MPV 7.1 fL (7.6-11.3); RBC Red Blood Cell Count 2.58 M/uL (3.86-4.86)
[2020-09-12 06:42] LABS: Albumin 1.7 g/dL (3.4-5.0); BUN Blood Urea Nitrogen 12 mg/dL (7-18); Bicarbonate 24 mmol/L (21-32); Glucose Level 82 mg/dL (74-106); Magnesium 1.9 mg/dL (1.8-2.4); Phosphorus 2.5 mg/dL (2.5-4.9); Potassium 3.4 mmol/L (3.5-5.1); Sodium Level 141 mmol/L (136-145)
[2020-09-12] MEDS: INSULIN -REGULAR HUMAN 50 UNIT/0.5 ML ML SQ SCH ×4 (07:30→21:00)
[2020-09-12] MEDS: JEVITY 1.2 CAL LIQUID 1,000 ML BOT FT SCH ×5 (08:00→21:41)
[2020-09-12] MEDS: ENOXAPARIN 40 MG/0.4 ML SQ SCH (08:39)
[2020-09-12] MEDS: metroNIDAZOLE 500 MG TABLET PO SCH ×2 (08:39→21:37)
[2020-09-12] MEDS: Meropenem 1 GM/100 ML BAG IV SCH ×2 (08:39→21:36)
[2020-09-12] MEDS: VENLAFAXINE HCL XR 75 MG CAP PO SCH (08:39)
[2020-09-12] MEDS: FE SULF/FA/VIT B COMP & C TAB PO SCH (08:39)
[2020-09-12] MEDS ORDERED: Magnesium Sulfate 2gm IVPB 2 G/50 ML BAG IV ONE (09:17)
[2020-09-12] MEDS ORDERED: POTASSIUM PHOS 20 MM in NA CHLORIDE 0.9% 500 ML IV ONE (09:17)
--- NOTE | 2020-09-12 09:45 | P.PN ---
Subjective Date of Service: 09/12/20 Primary Care Provider: Dr. Galan Chief Complaint: Acute renal failure, anemia, UTI Patient seen examined at bedside, doing well today. Does state she is having some diffuse abdominal pain and also report some diarrhea. Patient denies vomiting. Will start patient on probiotic today. Review of Systems 10-point ROS is otherwise unremarkable Physical Examination - Vital Signs Temperature: 97.7 F Blood Pressure: 136/74 Pulse: 102 Respirations: 17 Pulse Ox (%): 96 Assessment And Plan - Plan General: Alert, In no apparent distress HEENT: Atraumatic, Normocephalic Neck: Supple, 2+ carotid pulse no bruit Respiratory: Clear to auscultation bilaterally, Normal air movement Cardiovascular: No edema, Normal pulses Capillary refill: <2 Seconds Gastrointestinal: Normal bowel sounds Musculoskeletal: No clubbing, No swelling, No contractures Antibiotics: Flagyl Start: 09/08 stop: 09/15 Meropenem Start: 09/06 stop: 09/20 Assessment: ESBL urinary tract infection Anemia Obesity Plan: -continue IV meropenem for a total duration of 2 weeks given patient's the current history of urinary tract infections. Right arm PICC line placed. -blood cultures: Blood cultures taken on 09/05 2 bottles grew Staph epi 1 bottle grew Staph hominis and 1 bottle show no growth. This is likely due continue contamination. Patient empirically covered with meropenem. Repeat blood cultures taken on 09/08 showed no growth -medical management per primary team -continue monitor CBC and BMP -continue to monitor temperature curve Plan of care discussed with Dr. Chawla Physician Review Additional Text: Problem List
--- NOTE | 2020-09-12 13:44 | PN ---
Date of Progress Note: 09/12/2020 Subjective: The patient was admitted with acute kidney injury, hyponatremia, depleted electrolyte. Acute kidney injury has been resolved. We have been aggressively replacing her electrolyte. The pat negra had diarrhea. Physical Examination: Vital Signs: Blood pressure 136/74, pulse of 102, afebrile. The patient had good urine output of 12 00, positive of 1300. Chest: Decreased entry bilateral base. Heart: S1, S2. Regular. Abdomen: Soft, nontender. Extremity: Trace edema. Neuro: Alert. No focality. Laboratory Data: WBC 7.6, H and H 8.1/23.3. Sodium 141, potassium 3.4, bicarb 24, BUN 12, creatinin e 0.5, calcium 7.9, phosphorus 2.5, magnesium 1.9. Current Medications: The patient on include; 1.Meropenem. 2.Flagyl. 3.Lovenox. 4.Venlafaxine. 5.Jevity. 6.Zofran. Assessment And Plan: 1.Acute kidney injury secondary to prerenal, secondary to GI loss, recovered, resolved. 2.Hypokalemia, hypophosphatemia, hypomagnesemia. We will supplement. 3.Hypernatremia. Sodium trending down currently. Continue current free water. 4.Urinary tract infection secondary to Proteus ESBL. Continue meropenem. 5.Colitis. Continue current Flagyl and meropenem. RACHELLE/NATE Voice ID: [id number] Report ID: [id number]
--- NOTE | 2020-09-12 14:58 | P.PN ---
Subjective Date of Service: 09/12/20 Primary Care Provider: Dr. Galan Chief Complaint: Acute renal failure, anemia, UTI Nursing staff report patient was hallucinating last night. Posttransfusion hemoglobin up to 8. She is slightly confused. Physical Examination - Vital Signs Temperature: 97.6 F Blood Pressure: 127/67 Pulse: 104 Respirations: 18 Pulse Ox (%): 97 - Physical Exam General: In no apparent distress, Confused, Other (Awake) HEENT: Mucous membr. moist/pink Respiratory: Clear to auscultation bilaterally, Normal air movement Cardiovascular: No edema, Regular rate/rhythm, Normal S1 S2 Gastrointestinal: Normal bowel sounds, Soft and benign, Non-distended, No tenderness Musculoskeletal: No swelling Neurological: Normal strength at 5/5 x4 extr Assessment And Plan - Plan -FRANNY resolved -hypotension/slight bradycardia - probably secondary to overmedication. Resolved. -blood pressure is stable. -continue PEG tube feeding. -anemia - pt has chronic anemia. Hemoglobin dropped further. Pt given 1 unit PRBC transfusion. Status post total of 3 units PRBC since admission. -initially denied any carolann bleeding, discussion with daughter revealed abnormal uterine bleeding 1 month ago and 2 days prior to admission. -transvaginal U/S: heterogenous, enlarged uterus -attempt at endometrial biopsy unsuccessfulx 2. -this can be done as an outpatient. -h/o iron deficiency, guaic negative stool in ED -CTA chest negative for PE, doppler negative for DVT. -Eliquis discontinued given her high risk of bleeding and negative PE and DVT -Urine growing ESBL proteus; PICC line placed for outpatient IV antibiotics. Infectious disease recommended 2 weeks of IV meropenem or Invanz. -Blood growing staph epidermis in all bottles. These are skin contaminants per ID. Repeat blood culture shows no growth. -continue flagyl 500mg BID to cover for BV - pt had thick yellow-white vaginal discharge noted by nursing -accucheks/sliding scale insulin -continue PT. -CT abdomen also reports distended sigmoid colon which is chronic. -obtain CT head due to confusion. Physician Review Additional Text: Problem List
[2020-09-12] MEDS: POTASSIUM CL 40 MEQ in NA CHLORIDE 0.9% 500 ML IV SCH ×2 (15:33→21:36)
--- NOTE | 2020-09-12 15:38 | RAD REPORT ---
EXAM DESCRIPTION: CT - Head Brain Wo Cont - 09/12/2020 3:25 pm CLINICAL HISTORY: Acute confusion. Headache, drowsiness COMPARISON: Head Brain Wo Cont dated 09/05/2020; Head Brain Wo Cont dated 04/04/2020 TECHNIQUE: All CT scans are performed using dose optimization technique as appropriate and may inclu de automated exposure control or mA/KV adjustment according to patient size. FINDINGS: No intracranial hemorrhage, hydrocephalus or extra-axial fluid collection.Mild generalized brain atrophy is present with mild periventricular and deep white matter chronic microvascular ische cristofer changes.No areas of brain edema or evidence of midline shift. The paranasal sinuses and mastoids are clear. The calvarium is intact. IMPRESSION: No acute intracranial abnormality.
[2020-09-12] MEDS: LACTOBACILLUS/ACIDOPHILUS TAB PO SCH (21:37)
[2020-09-13 05:54] LABS: Absolute Lymphocytes (CBC) 1.5 K/uL (0.7-4.9); Basophils % 0.5 % (0-1.3); Hematocrit 23.8 % (36.0-45.0); MPV 7.9 fL (7.6-11.3); RBC Red Blood Cell Count 2.62 M/uL (3.86-4.86)
[2020-09-13 06:04] LABS: Albumin 1.6 g/dL (3.4-5.0); BUN Blood Urea Nitrogen 9 mg/dL (7-18); Bicarbonate 24 mmol/L (21-32); Glucose Level 77 mg/dL (74-106); Magnesium 1.9 mg/dL (1.8-2.4); Phosphorus 2.2 mg/dL (2.5-4.9); Potassium 3.5 mmol/L (3.5-5.1); Sodium Level 145 mmol/L (136-145)
[2020-09-13] MEDS: INSULIN -REGULAR HUMAN 50 UNIT/0.5 ML ML SQ SCH ×4 (07:30→21:00)
--- NOTE | 2020-09-13 07:33 | P.PN ---
Subjective Date of Service: 09/13/20 Primary Care Provider: Dr. Galan Chief Complaint: Acute renal failure, anemia, UTI Subjective: No new changes Physical Examination - Vital Signs Temperature: 97 F Blood Pressure: 135/58 Pulse: 99 Respirations: 18 Pulse Ox (%): 99 - Physical Exam General: Other (appears as her stated age) HEENT: Atraumatic, Normocephalic Neck: Supple Respiratory: Normal air movement Cardiovascular: No rubs, No murmurs Gastrointestinal: Soft and benign Musculoskeletal: No clubbing Integumentary: Other (Normal temperature) Urinary: Other (no bladder distention) Assessment And Plan - Plan 1. Acute kidney injury secondary to prerenal, secondary to GI loss, resolved. Adeq fluid intake as able. 2. Hypophosphatemia. received Neutra-Phos today. 3. Anemia. S/p pRBC transf. Monitor H/H. 4. ESBL Proteus UTI. For IV abx x 2 wks via meropenem/invanz. 5. Bacterial vaginosis. Flagyl. 6. Nutrition. On PEG feeding. 7. Dispo. Dc plan to SNF ongoing.
[2020-09-13] MEDS: JEVITY 1.2 CAL LIQUID 1,000 ML BOT FT SCH ×6 (08:00→21:43)
[2020-09-13] MEDS ORDERED: POTASSIUM CL SA 10 MEQ TAB PO SCH (09:00)
[2020-09-13] MEDS ORDERED: POTASSIUM CL SA 10 MEQ TAB PO ONE (09:00)
[2020-09-13] MEDS: POTASSIUM 25 MEQ EFFERV TAB FT SCH (10:41)
[2020-09-13] MEDS: LACTOBACILLUS/ACIDOPHILUS TAB PO SCH ×2 (10:41→21:43)
[2020-09-13] MEDS: metroNIDAZOLE 500 MG TABLET PO SCH ×2 (10:41→21:42)
[2020-09-13] MEDS: ENOXAPARIN 40 MG/0.4 ML SQ SCH (10:41)
[2020-09-13] MEDS: VENLAFAXINE HCL XR 75 MG CAP PO SCH (10:41)
[2020-09-13] MEDS: Meropenem 1 GM/100 ML BAG IV SCH ×2 (10:42→21:42)
[2020-09-13] MEDS: FE SULF/FA/VIT B COMP & C TAB PO SCH (10:43)
[2020-09-13] MEDS ORDERED: POTASS/SODIUM PHOSPHATE 1 PKT POWD.PACK PO ONE (13:16)
--- NOTE | 2020-09-13 16:27 | P.PN ---
Subjective Date of Service: 09/13/20 Primary Care Provider: Dr. Galan Chief Complaint: Acute renal failure, anemia, UTI Nursing staff report report patient had 20 runs of V-tach and patient was hallucinating during the event. She was more alert and oriented during my examination this morning. Physical Examination - Vital Signs Temperature: 98.4 F Blood Pressure: 145/62 Pulse: 97 Respirations: 16 Pulse Ox (%): 99 - Physical Exam General: In no apparent distress, Confused HEENT: Mucous membr. moist/pink Neck: JVD not distended Respiratory: Clear to auscultation bilaterally, Normal air movement Cardiovascular: No edema, Regular rate/rhythm, Normal S1 S2 Gastrointestinal: Normal bowel sounds, Soft and benign, Non-distended, Other (PEG) Musculoskeletal: No swelling Neurological: Other (No focal motor deficits) Assessment And Plan - Plan -FRANNY resolved -hypotension/slight bradycardia - probably secondary to overmedication. Resolved. -blood pressure is stable. -continue PEG tube feeding. -anemia - pt has chronic anemia. Hemoglobin dropped further. Pt given 1 unit PRBC transfusion. Status post total of 3 units PRBC since admission. -initially denied any carolann bleeding, discussion with daughter revealed abnormal uterine bleeding 1 month ago and 2 days prior to admission. -transvaginal U/S: heterogenous, enlarged uterus -attempt at endometrial biopsy unsuccessfulx 2. -this can be done as an outpatient. -h/o iron deficiency, guaic negative stool in ED -CTA chest negative for PE, doppler negative for DVT. -Eliquis discontinued given her high risk of bleeding and negative PE and DVT -Urine grew ESBL proteus; PICC line placed for outpatient IV antibiotics. Infectious disease recommended 2 weeks of IV meropenem or Invanz. -Blood growing staph epidermis in all bottles. These are skin contaminants per ID. Repeat blood culture shows no growth. -continue flagyl 500mg BID to cover for BV - pt had thick yellow-white vaginal discharge noted by nursing -accucheks/sliding scale insulin -continue PT. -CT abdomen also reports distended sigmoid colon which is chronic. -CT head obtained due to confusion: No acute disease. -she may benefit from amiodarone for VT. -repeat magnesium and potassium levels -cardiology consult. -repeat echocardiogram.
[2020-09-13 17:14] LABS: Magnesium 1.7 mg/dL (1.8-2.4); Potassium 3.6 mmol/L (3.5-5.1)
[2020-09-13] MEDS ORDERED: MAGNESIUM SULFATE 1 gm IVPB 1 GM/100 ML BAG IV ONE (21:00)
[2020-09-13] MEDS ORDERED: POTASSIUM 25 MEQ EFFERV TAB PO ONE (21:00)
[2020-09-13] MEDS: AMIODARONE HCL 200 MG TAB PO SCH (21:42)
[2020-09-14 05:51] LABS: Absolute Lymphocytes (CBC) 1.8 K/uL (0.7-4.9); Basophils % 0.2 % (0-1.3); Hematocrit 23.8 % (36.0-45.0); Lymphocytes % 21.1 % (15.3-44.8); MPV 8.2 fL (7.6-11.3); RBC Red Blood Cell Count 2.65 M/uL (3.86-4.86)
[2020-09-14 06:34] LABS: Albumin 1.7 g/dL (3.4-5.0); BUN Blood Urea Nitrogen 8 mg/dL (7-18); Bicarbonate 26 mmol/L (21-32); Glucose Level 78 mg/dL (74-106); Magnesium 1.9 mg/dL (1.8-2.4); Phosphorus 2.1 mg/dL (2.5-4.9); Potassium 3.4 mmol/L (3.5-5.1); Sodium Level 142 mmol/L (136-145)
[2020-09-14] MEDS: INSULIN -REGULAR HUMAN 50 UNIT/0.5 ML ML SQ SCH ×4 (07:30→20:20)
[2020-09-14] MEDS: JEVITY 1.2 CAL LIQUID 1,000 ML BOT FT SCH ×6 (08:00→20:20)
[2020-09-14] MEDS: ENOXAPARIN 40 MG/0.4 ML SQ SCH (09:00)
[2020-09-14] MEDS: Meropenem 1 GM/100 ML BAG IV SCH ×2 (09:20→20:21)
[2020-09-14] MEDS: POTASSIUM 25 MEQ EFFERV TAB FT SCH (09:20)
[2020-09-14] MEDS: LACTOBACILLUS/ACIDOPHILUS TAB PO SCH ×2 (09:21→20:19)
[2020-09-14] MEDS: AMIODARONE HCL 200 MG TAB PO SCH ×2 (09:21→20:19)
[2020-09-14] MEDS: VENLAFAXINE HCL XR 75 MG CAP PO SCH (09:21)
[2020-09-14] MEDS: FE SULF/FA/VIT B COMP & C TAB PO SCH (09:21)
[2020-09-14] MEDS: metroNIDAZOLE 500 MG TABLET PO SCH ×2 (09:21→20:18)
--- NOTE | 2020-09-14 12:27 | CON ---
Date of Consultation: 09/13/2020 Reason For Consultation: Ventricular tachycardia. History Of Present Illness: Ms. Harp is a 70-year-old woman, who has been in the hospital for few days because of acute renal failure, altered mental status, hypotension, and UTI. While she was bein g treated, she had a 20-beat run of ventricular tachycardia with symptoms of hallucination, but no hy potension and I was consulted. Denied any chest pain. Denied any syncope. Denied any palpitation. Denied any fever or chills. Denied any PND, orthopnea, pedal edema. Past Medical History: Includes congestive heart failure, diabetes, anxiety, COPD, rheumatoid arthrit is. She has a PEG tube. Social History: Negative. Review of Systems: Essentially noncontributory. Allergies: Medications: Coreg, potassium. Physical Examination: General: She was pleasant, in no acute distress. Vital Signs: Stable, afebrile. HEENT: Negative. Neck: Supple with no bruit. Chest: Clear to auscultation and percussion. Cardiac: Revealed a regular rhythm and rate with an aortic sclerosis murmur. No gallops or rubs. Abdomen: Benign. Extremities: Revealed trace edema. Neurologic: She is nonfocal. Pulses were present distally bilaterally. Skin: Dry and intact. Diagnostic Data: Hemoglobin was 7.9. Chest x-ray was negative. Potassium was 3.6, magnesium was 1. 7. Impression And Plan: 1.Ventricular tachycardia secondary to congestive heart failure as well as low potassium, low magnes ium, and demand ischemia from anemia. I would supplement her potassium, supplement her magnesium, pu t her on amiodarone 400 b.i.d. for 7 days and then 200 mg daily. Obtain an echocardiogram. Continue to monitor. Other problems including altered mental status have resolved. 2.Hypotension that has resolved. 3.History of urinary tract infection. 4.Acute renal failure that is improved. She also has a history of diabetes, chronic obstructive pul monary disease, rheumatoid arthritis that are stable. I will see what her echocardiogram shows. Leroy barnes present regimen. NB/MODL Voice ID: [id number] Report ID: [id number]
--- NOTE | 2020-09-14 12:46 | P.PN ---
Subjective Date of Service: 09/14/20 Primary Care Provider: Dr. Galan Chief Complaint: Acute renal failure, anemia, UTI Incongruent mood noted today. Patient appeared confused. He is tachycardic today. No fever. Physical Examination - Vital Signs Temperature: 97.6 F Blood Pressure: 108/66 Pulse: 100 Respirations: 18 Pulse Ox (%): 100 - Physical Exam General: In no apparent distress, Confused HEENT: Mucous membr. moist/pink Neck: JVD not distended Respiratory: Clear to auscultation bilaterally, Normal air movement Cardiovascular: Normal S1 S2, Other (Tachycardia), Edema (Bilateral lower extremity edema) Gastrointestinal: Normal bowel sounds, Soft and benign, Other (PEG tube) Musculoskeletal: No tenderness Neurological: Other (No focal motor deficit) Urinary: [place] catheter Assessment And Plan - Plan -FRANNY resolved -hypotension/slight bradycardia - probably secondary to overmedication. Resolved. -blood pressure is stable. -continue PEG tube feeding. -anemia - pt has chronic anemia. Hemoglobin dropped further. Pt given 1 unit PRBC transfusion. Status post total of 3 units PRBC since admission. -initially denied any carolann bleeding, discussion with daughter revealed abnormal uterine bleeding 1 month ago and 2 days prior to admission. -transvaginal U/S: heterogenous, enlarged uterus -attempt at endometrial biopsy unsuccessfulx 2. -this can be done as an outpatient. -hemoglobin is stable today -h/o iron deficiency, guaic negative stool in ED -CTA chest negative for PE, doppler negative for DVT. -Eliquis discontinued given her high risk of bleeding and negative PE and DVT -Urine grew ESBL proteus; PICC line placed for outpatient IV antibiotics. Infectious disease recommended 2 weeks of IV meropenem or Invanz. -Blood growing staph epidermis in all bottles. These are skin contaminants per ID. Repeat blood culture shows no growth. -will repeat blood culture given intermittent confusion. -continue flagyl 500mg BID to cover for BV - pt had thick yellow-white vaginal discharge noted by nursing -accucheks/sliding scale insulin -continue PT. -CT abdomen also reports distended sigmoid colon which is chronic. -CT head obtained due to confusion: No acute disease. -continue amiodarone. -optimize magnesium and potassium levels. -cardiology input appreciated. Patient seen by Dr. Sutton -echocardiogram is pending.
[2020-09-14] MEDS ORDERED: Magnesium Sulfate 2gm IVPB 2 G/50 ML BAG IV ONE (12:51)
[2020-09-14] MEDS: POTASSIUM CL SA 10 MEQ TAB PO SCH ×2 (13:45→16:13)
--- NOTE | 2020-09-14 14:13 | PN ---
Date of Progress Note: 09/14/2020 Ms. Harp is a 70-year-old woman, who was admitted on 09/05/2020 with acute renal failure, altered m ental status, hypotension, UTI. All these problems are actually improving. She has an episode of ve ntricular tachycardia. Potassium was supplemented. Magnesium was supplemented. Was placed on amiod arone 400 b.i.d. She has not had any further ventricular tachycardia. She needs to continue the ami odarone 400 b.i.d. for 7 days and then switch to 200 mg daily. Echocardiogram is pending. She is as ymptomatic right now, in a normal rhythm. I will continue to follow her as needed. KIRA/NATE Voice ID: [id number] Report ID: [id number]
[2020-09-14] MEDS: VANCOMYCIN 1.5 GM in NA CHLORIDE 0.9% 500 ML IVPB SCH (14:21)
[2020-09-14] MEDS ORDERED: RISPERIDONE 1 MG TABLET PO SCH (21:00)
[2020-09-14] MEDS ORDERED: POTASSIUM 25 MEQ EFFERV TAB PO ONE (21:00)
[2020-09-15] MEDS: VANCOMYCIN 1.5 GM in NA CHLORIDE 0.9% 500 ML IVPB SCH ×2 (00:13→13:00)
--- NOTE | 2020-09-15 03:11 | PN ---
Date of Progress Note: 09/14/2020 Chief Complaint: Acute renal failure, anemia, urinary tract infection. History Of Present Illness: Patient was found to have acute kidney injury secondary to prerenal azotemia in setting of GI loss. She responded to IV fluids. Urine output is adequate. Patient was found to have hypokalemia and received replacement. The patient has been treated for hypophosphatemia and received Neutra-Phos by mouth. She has history of urinary tract infection ESBL urinary tract infection has been treated with meropenem and Invanz. Review of Systems: Denies fever, chills. Physical Examination: Lungs: Diminished breath sounds at bases. Heart: S1, S2. Abdomen: Soft, benign. Extremities: No edema. Impression And Plan: 1. Acute kidney injury secondary to prerenal azotemia. Continue adequate hydration. Monitor fluid intake. Avoid nephrotoxic medication. 2. Hypokalemia. Monitor magnesium level. Potassium level was re-evaluated after replacement and is adequate. 3. Anemia, status post blood transfusion. Monitor hemoglobin and hematocrit. 4. Urinary tract infection, on antibiotics. Continue current treatment with IV antibiotics for 2 weeks. 5. Bacterial vaginosis, continue Flagyl. EB/MODDarrius Voice ID: [id number] Report ID: [id number] [facility]
[2020-09-15 05:24] LABS: Absolute Lymphocytes (CBC) 1.2 K/uL (0.7-4.9); Basophils % 0.5 % (0-1.3); Hematocrit 23.7 % (36.0-45.0); Lymphocytes % 17.3 % (15.3-44.8); MPV 7.9 fL (7.6-11.3); RBC Red Blood Cell Count 2.58 M/uL (3.86-4.86)
[2020-09-15 05:39] LABS: Albumin 1.6 g/dL (3.4-5.0); BUN Blood Urea Nitrogen 8 mg/dL (7-18); Bicarbonate 26 mmol/L (21-32); Glucose Level 82 mg/dL (74-106); Magnesium 1.9 mg/dL (1.8-2.4); Phosphorus 1.9 mg/dL (2.5-4.9); Potassium 3.3 mmol/L (3.5-5.1); Sodium Level 142 mmol/L (136-145)
[2020-09-15] MEDS: INSULIN -REGULAR HUMAN 50 UNIT/0.5 ML ML SQ SCH ×4 (07:30→20:13)
[2020-09-15] MEDS: Meropenem 1 GM/100 ML BAG IV SCH (07:50)
[2020-09-15] MEDS: AMIODARONE HCL 200 MG TAB PO SCH ×2 (07:51→20:11)
[2020-09-15] MEDS: VENLAFAXINE HCL XR 75 MG CAP PO SCH (07:51)
[2020-09-15] MEDS: LACTOBACILLUS/ACIDOPHILUS TAB PO SCH ×2 (07:51→20:11)
[2020-09-15] MEDS: metroNIDAZOLE 500 MG TABLET PO SCH (07:51)
[2020-09-15] MEDS: FE SULF/FA/VIT B COMP & C TAB PO SCH (07:51)
[2020-09-15] MEDS: POTASSIUM 25 MEQ EFFERV TAB FT SCH (07:54)
[2020-09-15] MEDS: POTASS/SODIUM PHOSPHATE 1 PKT POWD.PACK PO SCH ×3 (07:55→11:34)
[2020-09-15] MEDS: ENOXAPARIN 40 MG/0.4 ML SQ SCH (07:55)
[2020-09-15] MEDS: JEVITY 1.2 CAL LIQUID 1,000 ML BOT FT SCH ×5 (07:55→20:13)
--- NOTE | 2020-09-15 13:37 | P.PN ---
Subjective Date of Service: 09/15/20 Primary Care Provider: Dr. Galan Chief Complaint: Acute renal failure, anemia, UTI Patient still confused and hallucinating. She is seen sitting is coming through the window and on her arm Physical Examination - Vital Signs Temperature: 97.9 F Blood Pressure: 123/61 Pulse: 97 Respirations: 18 Pulse Ox (%): 99 - Physical Exam General: In no apparent distress, Confused HEENT: Mucous membr. moist/pink Neck: JVD not distended Respiratory: Clear to auscultation bilaterally, Normal air movement Cardiovascular: No edema, Regular rate/rhythm, Normal S1 S2 Gastrointestinal: Normal bowel sounds, Soft and benign, No tenderness, Other (Looks bloated) Musculoskeletal: Swelling (Bilateral lower extremities) Neurological: Other (No focal motor deficit.) Assessment And Plan - Plan -FRANNY resolved -hypotension/slight bradycardia - probably secondary to overmedication. Resolved. -blood pressure is stable. -continue PEG tube feeding. -anemia - pt has chronic anemia. Pt given 1 unit PRBC transfusion. Status post total of 3 units PRBC since admission. -abnormal uterine bleeding 1 month ago and 2 days prior to admission. -transvaginal U/S: heterogenous, enlarged uterus -attempt at endometrial biopsy unsuccessfulx 2. -this can be done as an outpatient. -hemoglobin is relatively stable. -h/o iron deficiency, guaic negative stool in ED -CTA chest negative for PE, doppler negative for DVT. -Eliquis discontinued given her high risk of bleeding and negative PE and DVT -Urine grew ESBL proteus; PICC line placed for outpatient IV antibiotics. Infectious disease recommended 2 weeks of IV meropenem or Invanz. -Blood growing staph epidermis in all bottles. These are skin contaminants per ID. -repeat blood cultures x2: No growth. -patient completed Flagyl for bacterial vaginosis. -accucheks/sliding scale insulin -continue PT. -CT abdomen also reports distended sigmoid colon which is chronic. -CT head obtained due to confusion: No acute disease. -continue amiodarone for VT. Cardiology input appreciated. -Echocardiogram is pending -optimize magnesium and potassium levels. -psychiatry consult for hallucinations. Physician Review Additional Text: Problem List
--- NOTE | 2020-09-16 00:47 | PN ---
Date of Progress Note: 09/15/2020 Chief Complaint: Acute kidney injury, anemia, and urinary tract infection. History Of Present Illness: The patient was found to have acute kidney injury secondary to prerenal azotemia in the setting of GI loss. The patient responded to IV fluids. Urine output is adequate. The patient does not have fluid overload. The patient has been treated for hypophosphatemia and rece ived Neutra-Phos by mouth and potassium level has improved towards treatment and replacement. The patient has been treated for urinary tract infection, and she is on meropenem and Invanz. Review of Systems: Denies fever, chills. Physical Examination: Lungs: Clear to auscultation bilaterally. Heart: S1, S2. Abdomen: Soft, benign. Extremities: No edema. Impression And Plan: 1.Acute kidney injury secondary to prerenal azotemia. The patient has underlying chronic kidney dis ease, stage 3. Continue to avoid nephrotoxic medication. Monitor fluid balance. Continue adequate hydration. 2.Hypokalemia. Monitor magnesium level. Continue replacement according to lab results. 3.Anemia, status post blood transfusion. Monitor hemoglobin level. 4.Urinary tract infection. The patient is on IV antibiotic for 2 weeks. 5.Bacterial vaginosis. The patient is on Flagyl. EB/MODL Voice ID: [id number] Report ID: [id number]
[2020-09-16] MEDS ORDERED: VANCOMYCIN 1.5 GM in NA CHLORIDE 0.9% 500 ML IVPB SCH (01:00)
[2020-09-16 05:54] LABS: Absolute Lymphocytes (CBC) 1.3 K/uL (0.7-4.9); Basophils % 0.3 % (0-1.3); Hematocrit 22.7 % (36.0-45.0); Lymphocytes % 19.2 % (15.3-44.8); MPV 7.9 fL (7.6-11.3); RBC Red Blood Cell Count 2.44 M/uL (3.86-4.86)
[2020-09-16 06:09] LABS: BUN Blood Urea Nitrogen 9 mg/dL (7-18); Bicarbonate 27 mmol/L (21-32); Glucose Level 79 mg/dL (74-106); Phosphorus 2.4 mg/dL (2.5-4.9); Potassium 3.4 mmol/L (3.5-5.1); Sodium Level 145 mmol/L (136-145)
[2020-09-16] MEDS: POTASS/SODIUM PHOSPHATE 1 PKT POWD.PACK PO SCH ×3 (07:00→08:42)
[2020-09-16] MEDS ORDERED: POTASS/SODIUM PHOSPHATE 1 PKT POWD.PACK PO SCH ×2 (07:00)
[2020-09-16] MEDS: INSULIN -REGULAR HUMAN 50 UNIT/0.5 ML ML SQ SCH ×4 (07:30→21:00)
[2020-09-16] MEDS: VENLAFAXINE HCL XR 75 MG CAP PO SCH (07:53)
[2020-09-16] MEDS: ENOXAPARIN 40 MG/0.4 ML SQ SCH (07:53)
[2020-09-16] MEDS: LACTOBACILLUS/ACIDOPHILUS TAB PO SCH ×2 (07:53→22:03)
[2020-09-16] MEDS: AMIODARONE HCL 200 MG TAB PO SCH ×2 (07:53→22:03)
[2020-09-16] MEDS: POTASSIUM 25 MEQ EFFERV TAB FT SCH (07:53)
[2020-09-16] MEDS: FE SULF/FA/VIT B COMP & C TAB PO SCH (07:56)
[2020-09-16] MEDS: JEVITY 1.2 CAL LIQUID 1,000 ML BOT FT SCH ×5 (07:57→22:04)
[2020-09-16] MEDS: Meropenem 1 GM/100 ML BAG IV SCH ×2 (09:52→22:02)
--- NOTE | 2020-09-16 11:29 | P.PN ---
Subjective Date of Service: 09/16/20 Primary Care Provider: Dr. Galan Chief Complaint: Acute renal failure, anemia, UTI No acute events are past 24 hr. Patient doing well. Review of Systems 10-point ROS is otherwise unremarkable Physical Examination - Vital Signs Temperature: 97.0 F Blood Pressure: 131/66 Pulse: 88 Respirations: 14 Pulse Ox (%): 100 - Studies Laboratory Last Values WBC 9.90 K/uL (4.3-10.9) 09/05/20 15:30 RBC 1.93 M/uL (3.86-4.86) L 09/05/20 15:30 Hgb 6.0 g/dL (12.0-15.0) L* 09/05/20 15:30 Hct 17.5 % (36.0-45.0) L* 09/05/20 15:30 MCV 90.8 fL (80-100) 09/05/20 15:30 MCH 31.2 pg (27.0-35.0) 09/05/20 15:30 MCHC 34.3 g/dL (32.0-36.0) 09/05/20 15:30 RDW 16.4 % (12.1-15.2) H 09/05/20 15:30 Plt Count 423 K/uL (152-406) H 09/05/20 15:30 MPV 7.2 fL (7.6-11.3) L 09/05/20 15:30 Neutrophils % 81.6 % (41.7-73.7) H 09/05/20 15:30 Lymphocytes % 8.9 % (15.3-44.8) L 09/05/20 15:30 Monocytes % 8.2 % (3.3-12.3) 09/05/20 15:30 Eosinophils % 1.1 % (0-4.4) 09/05/20 15:30 Basophils % 0.2 % (0-1.3) 09/05/20 15:30 Absolute Neutrophils 8.0 K/uL (1.8-8.0) 09/05/20 15:30 Absolute Lymphocytes 0.9 K/uL (0.7-4.9) 09/05/20 15:30 Absolute Monocytes 0.8 K/uL (0.1-1.3) 09/05/20 15:30 Absolute Eosinophils 0.1 K/uL (0-0.5) 09/05/20 15:30 Absolute Basophils 0.0 K/uL (0-0.5) 09/05/20 15:30 PT 29.6 SECONDS (9.5-12.5) H 09/05/20 15:30 INR 2.55 09/05/20 15:30 Sodium 128 mmol/L (136-145) L 09/05/20 15:30 Potassium 3.8 mmol/L (3.5-5.1) 09/05/20 15:30 Chloride 97 mmol/L (98-107) L 09/05/20 15:30 Carbon Dioxide 23 mmol/L (21-32) 09/05/20 15:30 BUN 56 mg/dL (7-18) H 09/05/20 15:30 Creatinine 2.23 mg/dL (0.55-1.3) H 09/05/20 15:30 Estimated GFR 26 mL/min (=/>90) L 09/05/20 15:30 Glucose 92 mg/dL (74-106) 09/05/20 15:30 Lactic Acid 1.1 mmol/L (0.4-2.0) 09/05/20 15:30 Calcium 8.6 mg/dL (8.5-10.1) 09/05/20 15:30 Magnesium 2.5 mg/dL (1.8-2.4) H D 09/05/20 15:30 Iron 27.0 ug/dL (50-170) L 09/05/20 15:30 TIBC 119 ug/dL (250-460) L 09/05/20 15:30 Transferrin 85 mg/dL (200-360) L 09/05/20 15:30 Transferrin % Sat 22.7 % (20.0-50.0) 09/05/20 15:30 Ferritin 2674.0 ng/mL (8-388) H 09/05/20 15:30 Total Bilirubin 0.4 mg/dL (0.2-1.0) 09/05/20 15:30 Direct Bilirubin 0.2 mg/dL (0-0.2) 09/05/20 15:30 AST 30 U/L (15-37) 09/05/20 15:30 ALT 30 U/L (12-78) 09/05/20 15:30 Alkaline Phosphatase 127 U/L (45-117) H 09/05/20 15:30 Rapid Troponin I < 0.02 ng/mL (0.0-0.045) 09/05/20 15:30 NT-Pro-B Natriuret Pep 966 pg/mL (<125) H 09/05/20 15:30 Serum Total Protein 9.0 g/dL (6.4-8.2) H 09/05/20 15:30 Albumin 1.7 g/dL (3.4-5.0) L 09/05/20 15: Globulin 7.3 g/dL (2.3-3.5) H 09/05/20 15: Albumin/Globulin Ratio 0.2 (1.1-1.8) L 09/05/20 15: Procalcitonin 0.40 ng/mL (<0.050) H 09/05/20 15:30 Urine Color Yellow (Yellow) 09/05/20 18: Urine Appearance Turbid (Clear) 09/05/20 18: Urine pH 5.5 (5.0-7.0) 09/05/20 18:32 Ur Specific [place] <=1.005 (1.005-1.030) 09/05/20 18: Glucose (UA)(Auto) Negative (Negative) 09/05/20 18: Urine Ketones Negative (Negative) 09/05/20 18:32 Urine Blood 3+ (Negative) H 09/05/20 18: Urine Nitrite Negative (Negative) 09/05/20: Urine Bilirubin Negative (Negative) 09/05/20 18: Urine Urobilinogen 0.2 mg/dL (0.2-1.0) 09/05/20 18:32 Ur Leukocyte Esterase 3+ (Negative) H 09/05/20 18: Urine RBC 5-10 /HPF (NONE SEEN) H 09/05/20 18: Urine WBC 20-50 /HPF (<5) H 09/05/20 18:32 Ur Squamous Epith Cells <5 /HPF (NONE SEEN) 09/05/20 18:32 Ur Urothelial Cells Cancelled 09/05/20 18:30 Calcium Oxalate Crystal Cancelled 09/05/20 18:30 Uric Acid Crystals Cancelled 09/05/20 18:30 Triple Phos Crystals Cancelled 09/05/20 18:30 Other Crystals Cancelled 09/05/20 18:30 Amorphous Sediment Cancelled 09/05/20 18:30 Glitter Cells Cancelled 09/05/20 18:30 Urine Bacteria >50 /HPF (<20) H 09/05/20 18:32 Hyaline Casts Cancelled 09/05/20 18:30 Fine Granular Casts Cancelled 09/05/20 18:30 Coarse Granular Casts Cancelled 09/05/20 18:30 Waxy Casts Cancelled 09/05/20 18:30 RBC Casts Cancelled 09/05/20 18:30 WBC Casts Cancelled 09/05/20 18:30 Urine Mucus Cancelled 09/05/20 18:30 Urine Other Cancelled 09/05/20 18:30 Urine Trichomonas Cancelled 09/05/20 18:30 Urine Yeast Cancelled 09/05/20 18:30 Ur Yeast w Hyphae Cancelled 09/05/20 18:30 Urine Yeast (Budding) Cancelled 09/05/20 18:30 Urine Sperm Cancelled 09/05/20 18:30 Ur Microscopic Review Cancelled 09/05/20 18:32 Urine Culture Reflexed Reflexed 09/05/20 18:32 Urine Total Volume Cancelled 09/05/20 18:30 Urine Total Protein Trace (Negative) H 09/05/20 18:32 SARS-CoV-2 RNA (RT-PCR) Negative (NEGATIVE) 09/05/20 15:30 ABO/Rh O POSITIVE 09/05/20 17:23 Solid Phase Ab Screen Negative 09/05/20 17:23 Crossmatch See Detail 09/05/20 17:23 Assessment And Plan - Plan General: Alert, In no apparent distress HEENT: Atraumatic, Normocephalic Neck: Supple, 2+ carotid pulse no bruit Respiratory: Clear to auscultation bilaterally, Normal air movement Cardiovascular: No edema, Normal pulses Capillary refill: <2 Seconds Gastrointestinal: Normal bowel sounds Musculoskeletal: No clubbing, No swelling, No contractures Antibiotics: Flagyl Start: 09/08 stop: 09/15 Meropenem Start: 09/06 stop: 09/20 Assessment: ESBL urinary tract infection Anemia Obesity Plan: Over the week and patient's meropenem antibiotic , patient was started on vancomycin and missed a single dose of meropenem. This morning patient was restarted on meropenem and vancomycin was discontinued, taking patient will still completes antibiotics on 09/20 however after she recieves a PM dose -continue IV meropenem for a total duration of 2 weeks given patient's the current history of urinary tract infections. Right arm PICC line placed. -blood cultures: Blood cultures taken on 09/05 2 bottles grew Staph epi 1 bottle grew Staph hominis and 1 bottle show no growth. This is likely due continue contamination. Patient empirically covered with meropenem. Repeat blood cultures taken on 09/08 showed no growth -medical management per primary team -continue monitor CBC and BMP -continue to monitor temperature curve Plan of care discussed with Dr. Chawla Physician Review Additional Text: Problem List
--- NOTE | 2020-09-16 14:54 | P.PN ---
Subjective Date of Service: 09/16/20 Primary Care Provider: Dr. Galan Chief Complaint: Acute renal failure, anemia, UTI Patient still confused. Nursing staff report loose stool. Physical Examination - Vital Signs Temperature: 97.1 F Blood Pressure: 100/59 Pulse: 89 Respirations: 16 Pulse Ox (%): 100 - Physical Exam General: In no apparent distress, Confused HEENT: Mucous membr. moist/pink Neck: JVD not distended Respiratory: Clear to auscultation bilaterally, Normal air movement Cardiovascular: Regular rate/rhythm, Normal S1 S2, Edema (Bilateral lower extremities.) Gastrointestinal: Soft and benign, Non-distended, No tenderness, Other (PEG) Musculoskeletal: No contractures Neurological: Other (No focal motor deficit.) Assessment And Plan - Plan -FRANNY resolved -hypotension/slight bradycardia - probably secondary to overmedication. Resolved. -blood pressure is stable. -continue PEG tube feeding. -anemia - pt has chronic anemia. Pt given 1 unit PRBC transfusion. Status post total of 3 units PRBC since admission. -abnormal uterine bleeding 1 month ago and 2 days prior to admission. -transvaginal U/S: heterogenous, enlarged uterus -attempt at endometrial biopsy unsuccessfulx 2. -this can be done as an outpatient. -hemoglobin is relatively stable. -h/o iron deficiency, guaic negative stool in ED -CTA chest negative for PE, doppler negative for DVT. -Eliquis discontinued given her high risk of bleeding and negative PE and DVT -Urine grew ESBL proteus; PICC line placed for outpatient IV antibiotics. Infectious disease recommended 2 weeks of IV meropenem or Invanz. -Blood growing staph epidermis in all bottles. These are skin contaminants per ID. -repeat blood cultures x2: No growth. -patient completed Flagyl for bacterial vaginosis. -accucheks/sliding scale insulin -continue PT. -CT abdomen also reports distended sigmoid colon which is chronic. -CT head obtained due to confusion: No acute disease. -continue amiodarone for VT. Cardiology input appreciated. -Echocardiogram done today. Result is pending. -optimize magnesium and potassium levels. -psychiatry consult placed for hallucinations. Disposition: Home with home health.
[2020-09-16] MEDS ORDERED: POTASSIUM CL 40 MEQ in NA CHLORIDE 0.9% 500 ML IV SCH (16:00)
--- NOTE | 2020-09-17 02:36 | PN ---
Date of Progress Note: 09/16/2020 Chief Complaint: Acute kidney injury, anemia, and urinary tract infection. History Of Present Illness: The patient was found to have acute kidney injury secondary to hypovolem ia in the setting of GI loss. The patient was treated with IV fluids for prerenal azotemia. Urine o utput improved. The patient has hypokalemia and hypophosphatemia, received replacement and is taking Neutra-Phos. Potassium level improved after the patient had replacement done. Review of Systems: Denies fever, chills. Physical Examination: Lungs: Diminished breath sounds at bases. Heart: S1, S2. Abdomen: Soft, benign. Extremities: No edema. Impression And Plan: 1.Acute kidney injury secondary to prerenal azotemia. The patient has underlying chronic kidney dis ease stage 3. Monitor fluid balance. Continue adequate hydration. Avoid nephrotoxic medication. 2.Hypokalemia. Magnesium level is within normal limits. Continue potassium replacement. Increase p.o. intake. 3.Anemia, status post transfusion. Monitor hemoglobin level. 4.Urinary tract infection. Continue antibiotics. KLAUDIA/MODL Voice ID: [id number] Report ID: [id number]
[2020-09-17 05:20] LABS: Absolute Lymphocytes (CBC) 1.5 K/uL (0.7-4.9); Basophils % 0.3 % (0-1.3); Hematocrit 22.1 % (36.0-45.0); MPV 8.2 fL (7.6-11.3); RBC Red Blood Cell Count 2.44 M/uL (3.86-4.86)
[2020-09-17 05:29] LABS: BUN Blood Urea Nitrogen 7 mg/dL (7-18); Bicarbonate 28 mmol/L (21-32); Glucose Level 79 mg/dL (74-106); Phosphorus 2.5 mg/dL (2.5-4.9); Potassium 3.3 mmol/L (3.5-5.1); Sodium Level 141 mmol/L (136-145)
--- NOTE | 2020-09-17 06:51 | P.PN ---
Subjective Date of Service: 09/17/20 Primary Care Provider: Dr. Galan Chief Complaint: Acute renal failure, anemia, UTI Has hallucinations. Physical Examination - Vital Signs Temperature: 98.1 F Blood Pressure: 109/60 Pulse: 99 Respirations: 16 Pulse Ox (%): 99 - Physical Exam General: Other (Appears as her stated age) HEENT: Atraumatic, Normocephalic Neck: Supple Respiratory: Other (Symmetric chest expansion) Cardiovascular: No rubs, No murmurs Gastrointestinal: Soft and benign Musculoskeletal: Other (+BLE edema) Integumentary: Other (Normal temp) Neurological: Other (+confusion) Urinary: Other (No bladder distention) External genitalia: Deferred Rectal: Deferred Assessment And Plan - Plan # Acute kidney injury secondary to prerenal, secondary to GI loss, resolved Adeq fluid intake as able # Hypokalemia IV KCl repletion received today # ESBL Proteus UTI IV abx x 2 wks via meropenem/invanz # BLE edema, 2/2 severe hypoalbuminemia + significant pulmo Htn +/- ? nephrotic syndrome +nephrotic-range proteinuria, severe hypoalbuminemia, anemia, some HLD SPEP abnormal in Jun 2019 HBV, HCV, HIV neg in Jun 2019 HBA1c wnl in Jun 2020 F/u serum CAMILLE, K:L SFLC, random UPEP, ENRIQUE Hx of pulmonary Htn. Chest CT in June 2020 showed a dilated main pulmonary artery. CT PE on 09/07/20 showed pulmo Htn but no PE. TTE showed moderate pulmo Htn. Pulmo Htn likely more than just trivial Hx of chronic diastolic heart failure status post PPM/AICD Hx of leg DVT on Eliquis BLE US on 09/07/20 showed no DVT BNP elevated Troponin negative TSH within normal limits No e/o advanced liver dse Low Na diet Do not restrict free water intake unless hyponatremic May need to maintain some BLE edema to maintain adeq preload, as her pulmo Htn is likely more than just trivial Start BLE knee-high graduated compression stockings, at least 20-30 mmHg ankle pressure, to lessen edema # Anemia S/p pRBC transf Monitor H/H # Nutrition On PEG feeding # Hallucinations Psyche consult # Dispo Dc plan to SNF ongoing Physician Review Additional Text: Problem List
[2020-09-17] MEDS: INSULIN -REGULAR HUMAN 50 UNIT/0.5 ML ML SQ SCH ×4 (07:30→21:00)
--- NOTE | 2020-09-17 07:52 | ECHO ---
HEIGHT: 5 ft 4 in WEIGHT: 198 lb 0 oz DATE OF STUDY: 09/16/[address]: ronda frankel 2-DIMENSIONAL: YES M.MODE: YES DOPPLER: YES COLOR FLOW: YES TDS: NO PORTABLE: NO DEFINITY: NO BUBBLE STUDY: NO DIAGNOSIS: VENTRICULAR TACHYCARDIA CARDIAC HISTORY: CATHERIZATION: NO SURGERY: NO PROSTHETIC VALVE: NO PACEMAKER: YES MEASUREMENTS (cm) DIASTOLIC (NORMALS) SYSTOLIC (NORMALS) IVSd 1.1 (0.6-1.2) LA Diam 3.3 (1.9-4.0) LVEF 59% LVIDd 4.3 (3.5-5.7) LVIDs 2.9 (2.0-3.5) %FS 31% LVPWd 1.1 (0.6-1.2) Ao Diam 2.8 (2.0-3.7) 2 DIMENSIONAL ASSESSMENT: RIGHT ATRIUM: NORMAL LEFT ATRIUM: NORMAL RIGHT VENTRICLE: PACEMAKER WIRE LEFT VENTRICLE: NORMAL TRICUSPID VALVE: MILD TRICUSPID REGURGITATION MITRAL VALVE: MILD MITRAL REGURGITATION PULMONIC VALVE: NORMAL AORTIC VALVE: NORMAL PERICARDIAL EFFUSION: NONE AORTIC ROOT: NORMAL LEFT VENTRICULAR WALL MOTION: NORMAL. DOPPLER/COLOR FLOW: SEE BELOW. COMMENTS: NORMAL LEFT VENTRICULAR EJECTION FRACTION 55-60%. NORMAL WALL MOTION. MILD MITRAL AND TRICUSPID REGURGITATION. TECHNOLOGIST: GREG TALAVERA
[2020-09-17 08:06] LABS: Urine Protein/Creatinine Ratio 3.65 ratio (<0.15)
[2020-09-17] MEDS: KCL 20 MEQ/100 mL IVPB 20 MEQ/100 ML BAG IV SCH ×2 (08:59→10:57)
[2020-09-17] MEDS: POTASSIUM 25 MEQ EFFERV TAB FT SCH (09:00)
[2020-09-17] MEDS: VENLAFAXINE HCL XR 75 MG CAP PO SCH (09:00)
[2020-09-17] MEDS: LACTOBACILLUS/ACIDOPHILUS TAB PO SCH ×2 (09:00→21:19)
[2020-09-17] MEDS: Meropenem 1 GM/100 ML BAG IV SCH ×2 (09:00→21:18)
[2020-09-17] MEDS: FE SULF/FA/VIT B COMP & C TAB PO SCH (09:00)
[2020-09-17] MEDS: ENOXAPARIN 40 MG/0.4 ML SQ SCH (09:00)
[2020-09-17] MEDS: JEVITY 1.2 CAL LIQUID 1,000 ML BOT FT SCH ×5 (09:01→21:20)
[2020-09-17] MEDS: AMIODARONE HCL 200 MG TAB PO SCH ×2 (09:01→21:23)
--- NOTE | 2020-09-17 09:25 | P.PN ---
Subjective Date of Service: 09/17/20 Primary Care Provider: Dr. Galan Chief Complaint: Acute renal failure, anemia, UTI Subjective: No new changes (patient without complaints this morning. Nursing staff report +hallucination overnight: patient was talking to someone not there. patient denies hallucinations in past 1-2 days, became tearful and stating she wants to go home) Review of Systems 10-point ROS is otherwise unremarkable Physical Examination - Vital Signs Temperature: 97.3 F Blood Pressure: 139/93 Pulse: 97 Respirations: 18 Pulse Ox (%): 97 Assessment & Plan Physician Review Additional Text: Physical Exam General: In no apparent distress, Confused, tearful HEENT: Mucous membr. moist/pink, sclera anicteric Respiratory: Clear to auscultation bilaterally, Normal air movement Cardiovascular: Regular rate/rhythm, Normal S1 S2, trace b/l lower extremity edema Gastrointestinal: Soft, nontender, non-distended, PEG in place Musculoskeletal: No joint swelling/tenderness : chronic indwelling brito Problem List Acute renal failure, resolved acute on chronic anemia, acute blood loss abnormal uterine bleeding enlarged, heterogenous uterus History of DVT, on chronic eliquis Urinary tract infection complicated with long-term Brito catheter use, Proteus ESBL Chronic diastolic congestive heart failure S/P pacemaker defibrillator placement Hypotension, with h/o HTN Diabetes mellitus type 2 with hypoglycemia Hyperlipidemia RA COPD Anxiety -FRANNY resolved -hypotension/slight bradycardia - probably secondary to overmedication. improved -nephrology consulted and assisting -continue PEG tube feeding. acute on chronic anemia, acute blood loss abnormal uterine bleeding enlarged, heterogenous uterus History of DVT, on chronic eliquis -anemia - pt has chronic anemia, iron deficiency. with recent uterine bleeding, s/p total of 3 units PRBC since admission. -h/o iron deficiency, guaic negative stool in ED -abnormal uterine bleeding 1 month and 2 days prior to admission. -transvaginal U/S: heterogenous, enlarged uterus, endometrial biopsy unsuccessful x2. can be done as outpatient -hemoglobin is relatively stable now, 7.5 -CTA chest negative for PE, doppler negative for DVT. -Eliquis discontinued given her high risk of bleeding and negative PE and DVT Urinary tract infection complicated with long-term Brito catheter use, Proteus ESBL -Urine grew ESBL proteus; PICC line placed for outpatient IV antibiotics. -Infectious disease recommended 2 weeks of IV meropenem or Invanz. Vanc discontinued -stop date: 09/20 evening -Blood grew staph epidermis in all bottles. These are skin contaminants per ID. -repeat blood cultures x2: No growth. -patient completed Flagyl for bacterial vaginosis. Hallucinations -unclear etiology, pt with h/o anxiety, possible medication induced/component? -psychiatry consulted for assistance DM2, HLD, RA, COPD, Anxiety -accucheks/sliding scale insulin -continue PT. -CT abdomen also reports distended sigmoid colon which is chronic. -CT head obtained due to confusion: No acute disease. -continue amiodarone for VT. Cardiology input appreciated. -Echocardiogram done - normal EF, no significant cardiac findings -optimize magnesium and potassium levels. Disposition: denied SNF, so likely home with home health. will discuss further with family anticipate hospitalization another ~48hrs Time Spent Managing Pts Care (In Minutes): 40
[2020-09-17] MEDS: POTASS/SODIUM PHOSPHATE 1 PKT POWD.PACK PO SCH (09:59)
[2020-09-17] MEDS ORDERED: POTASSIUM 25 MEQ EFFERV TAB PO ONE (21:00)
[2020-09-18 04:49] LABS: Absolute Lymphocytes (CBC) 1.5 K/uL (0.7-4.9); Basophils % 0.4 % (0-1.3); Hematocrit 23.3 % (36.0-45.0); Lymphocytes % 21.4 % (15.3-44.8); MPV 8.5 fL (7.6-11.3); RBC Red Blood Cell Count 2.52 M/uL (3.86-4.86)
[2020-09-18 04:59] LABS: Albumin 1.7 g/dL (3.4-5.0); BUN Blood Urea Nitrogen 9 mg/dL (7-18); Bicarbonate 29 mmol/L (21-32); Glucose Level 79 mg/dL (74-106); Magnesium 1.6 mg/dL (1.8-2.4); Phosphorus 2.5 mg/dL (2.5-4.9); Potassium 3.6 mmol/L (3.5-5.1); Sodium Level 142 mmol/L (136-145)
[2020-09-18] MEDS: INSULIN -REGULAR HUMAN 50 UNIT/0.5 ML ML SQ SCH ×4 (07:30→21:00)
[2020-09-18] MEDS: ENOXAPARIN 40 MG/0.4 ML SQ SCH (08:20)
[2020-09-18] MEDS: Meropenem 1 GM/100 ML BAG IV SCH ×2 (08:20→21:02)
[2020-09-18] MEDS: POTASS/SODIUM PHOSPHATE 1 PKT POWD.PACK PO SCH (08:20)
[2020-09-18] MEDS: VENLAFAXINE HCL XR 75 MG CAP PO SCH (08:21)
[2020-09-18] MEDS: JEVITY 1.2 CAL LIQUID 1,000 ML BOT FT SCH ×5 (08:21→21:04)
[2020-09-18] MEDS: POTASSIUM 25 MEQ EFFERV TAB FT SCH (08:21)
[2020-09-18] MEDS: LACTOBACILLUS/ACIDOPHILUS TAB PO SCH ×2 (08:21→21:04)
[2020-09-18] MEDS: AMIODARONE HCL 200 MG TAB PO SCH ×2 (08:21→21:04)
[2020-09-18] MEDS: FE SULF/FA/VIT B COMP & C TAB PO SCH (08:21)
[2020-09-18] MEDS ORDERED: MAGNESIUM SULFATE 1 gm IVPB 1 GM/100 ML BAG IV ONE (09:00)
--- NOTE | 2020-09-18 10:58 | P.PN ---
Subjective Date of Service: 09/18/20 Primary Care Provider: Dr. Galan Chief Complaint: Acute renal failure, anemia, UTI Patient seen examined at bedside, no acute events are passed a for hr. Tolerating antibiotics well. Denies nausea, vomiting, diarrhea. Review of Systems 10-point ROS is otherwise unremarkable Physical Examination - Vital Signs Temperature: 97.1 F Blood Pressure: 121/64 Pulse: 90 Respirations: 18 Pulse Ox (%): 100 - Studies Laboratory Last Values WBC 9.90 K/uL (4.3-10.9) 09/05/20 15:30 RBC 1.93 M/uL (3.86-4.86) L 09/05/20 15:30 Hgb 6.0 g/dL (12.0-15.0) L* 09/05/20 15:30 Hct 17.5 % (36.0-45.0) L* 09/05/20 15:30 MCV 90.8 fL (80-100) 09/05/20 15:30 MCH 31.2 pg (27.0-35.0) 09/05/20 15:30 MCHC 34.3 g/dL (32.0-36.0) 09/05/20 15:30 RDW 16.4 % (12.1-15.2) H 09/05/20 15:30 Plt Count 423 K/uL (152-406) H 09/05/20 15:30 MPV 7.2 fL (7.6-11.3) L 09/05/20 15:30 Neutrophils % 81.6 % (41.7-73.7) H 09/05/20 15:30 Lymphocytes % 8.9 % (15.3-44.8) L 09/05/20 15:30 Monocytes % 8.2 % (3.3-12.3) 09/05/20 15:30 Eosinophils % 1.1 % (0-4.4) 09/05/20 15:30 Basophils % 0.2 % (0-1.3) 09/05/20 15:30 Absolute Neutrophils 8.0 K/uL (1.8-8.0) 09/05/20 15:30 Absolute Lymphocytes 0.9 K/uL (0.7-4.9) 09/05/20 15:30 Absolute Monocytes 0.8 K/uL (0.1-1.3) 09/05/20 15:30 Absolute Eosinophils 0.1 K/uL (0-0.5) 09/05/20 15:30 Absolute Basophils 0.0 K/uL (0-0.5) 09/05/20 15:30 PT 29.6 SECONDS (9.5-12.5) H 09/05/20 15:30 INR 2.55 09/05/20 15:30 Sodium 128 mmol/L (136-145) L 09/05/20 15:30 Potassium 3.8 mmol/L (3.5-5.1) 09/05/20 15:30 Chloride 97 mmol/L (98-107) L 09/05/20 15:30 Carbon Dioxide 23 mmol/L (21-32) 09/05/20 15:30 BUN 56 mg/dL (7-18) H 09/05/20 15:30 Creatinine 2.23 mg/dL (0.55-1.3) H 09/05/20 15:30 Estimated GFR 26 mL/min (=/>90) L 09/05/20 15:30 Glucose 92 mg/dL (74-106) 09/05/20 15:30 Lactic Acid 1.1 mmol/L (0.4-2.0) 09/05/20 15:30 Calcium 8.6 mg/dL (8.5-10.1) 09/05/20 15:30 Magnesium 2.5 mg/dL (1.8-2.4) H D 09/05/20 15:30 Iron 27.0 ug/dL (50-170) L 09/05/20 15:30 TIBC 119 ug/dL (250-460) L 09/05/20 15:30 Transferrin 85 mg/dL (200-360) L 09/05/20 15:30 Transferrin % Sat 22.7 % (20.0-50.0) 09/05/20 15:30 Ferritin 2674.0 ng/mL (8-388) H 09/05/20 15:30 Total Bilirubin 0.4 mg/dL (0.2-1.0) 09/05/20 15:30 Direct Bilirubin 0.2 mg/dL (0-0.2) 09/05/20 15:30 AST 30 U/L (15-37) 09/05/20 15:30 ALT 30 U/L (12-78) 09/05/20 15:30 Alkaline Phosphatase 127 U/L (45-117) H 09/05/20 15:30 Rapid Troponin I < 0.02 ng/mL (0.0-0.045) 09/05/20 15:30 NT-Pro-B Natriuret Pep 966 pg/mL (<125) H 09/05/20 15:30 Serum Total Protein 9.0 g/dL (6.4-8.2) H 09/05/20 15:30 Albumin 1.7 g/dL (3.4-5.0) L 09/05/20 15: Globulin 7.3 g/dL (2.3-3.5) H 09/05/20 15: Albumin/Globulin Ratio 0.2 (1.1-1.8) L 09/05/20 15: Procalcitonin 0.40 ng/mL (<0.050) H 09/05/20 15:30 Urine Color Yellow (Yellow) 09/05/20 18: Urine Appearance Turbid (Clear) 09/05/20 18: Urine pH 5.5 (5.0-7.0) 09/05/20 18: Ur Specific [place] <=1.005 (1.005-1.030) 09/05/20 18: Glucose (UA)(Auto) Negative (Negative) 09/05/20 18: Urine Ketones Negative (Negative) 09/05/20 18: Urine Blood 3+ (Negative) H 09/05/20 18: Urine Nitrite Negative (Negative) 09/05/20 18: Urine Bilirubin Negative (Negative) 09/05/20 18: Urine Urobilinogen 0.2 mg/dL (0.2-1.0) 09/05/20 18:32 Ur Leukocyte Esterase 3+ (Negative) H 09/05/20 18:32 Urine RBC 5-10 /HPF (NONE SEEN) H 09/05/20 18:32 Urine WBC 20-50 /HPF (<5) H 09/05/20 18:32 Ur Squamous Epith Cells <5 /HPF (NONE SEEN) 09/05/20 18: Ur Urothelial Cells Cancelled 09/05/20 18:30 Calcium Oxalate Crystal Cancelled 09/05/20 18:30 Uric Acid Crystals Cancelled 09/05/20 18:30 Triple Phos Crystals Cancelled 09/05/20 18:30 Other Crystals Cancelled 09/05/20 18:30 Amorphous Sediment Cancelled 09/05/20 18:30 Glitter Cells Cancelled 09/05/20 18:30 Urine Bacteria >50 /HPF (<20) H 09/05/20 18:32 Hyaline Casts Cancelled 09/05/20 18:30 Fine Granular Casts Cancelled 09/05/20 18:30 Coarse Granular Casts Cancelled 09/05/20 18:30 Waxy Casts Cancelled 09/05/20 18:30 RBC Casts Cancelled 09/05/20 18:30 WBC Casts Cancelled 09/05/20 18:30 Urine Mucus Cancelled 09/05/20 18:30 Urine Other Cancelled 09/05/20 18:30 Urine Trichomonas Cancelled 09/05/20 18:30 Urine Yeast Cancelled 09/05/20 18:30 Ur Yeast w Hyphae Cancelled 09/05/20 18:30 Urine Yeast (Budding) Cancelled 09/05/20 18:30 Urine Sperm Cancelled 09/05/20 18:30 Ur Microscopic Review Cancelled 09/05/20 18:32 Urine Culture Reflexed Reflexed 09/05/20 18:32 Urine Total Volume Cancelled 09/05/20 18:30 Urine Total Protein Trace (Negative) H 09/05/20 18:32 SARS-CoV-2 RNA (RT-PCR) Negative (NEGATIVE) 09/05/20 15:30 ABO/Rh O POSITIVE 09/05/20 17:23 Solid Phase Ab Screen Negative 09/05/20 17:23 Crossmatch See Detail 09/05/20 17:23 Assessment And Plan - Plan General: Alert, In no apparent distress HEENT: Atraumatic, Normocephalic Neck: Supple, 2+ carotid pulse no bruit Respiratory: Clear to auscultation bilaterally, Normal air movement Cardiovascular: No edema, Normal pulses Capillary refill: <2 Seconds Gastrointestinal: Normal bowel sounds Musculoskeletal: No clubbing, No swelling, No contractures Antibiotics: Flagyl Start: 09/08 stop: 09/15 Meropenem Start: 09/06 stop: 09/20 Assessment: ESBL urinary tract infection Anemia Obesity Plan: Over the week and patient's meropenem antibiotic , patient was started on vancomycin and missed a single dose of meropenem. This morning patient was restarted on meropenem and vancomycin was discontinued, taking patient will still completes antibiotics on 09/20 however after she recieves a PM dose -continue IV meropenem for a total duration of 2 weeks given patient's the current history of urinary tract infections. Right arm PICC line placed. -blood cultures: Blood cultures taken on 09/05 2 bottles grew Staph epi 1 bottle grew Staph hominis and 1 bottle show no growth. This is likely due continue contamination. Patient empirically covered with meropenem. Repeat blood cultures taken on 09/08 showed no growth -medical management per primary team -continue monitor CBC and BMP -continue to monitor temperature curve Plan of care discussed with Dr. Chawla
--- NOTE | 2020-09-18 11:14 | PN ---
Date of Progress Note: 09/18/2020 Subjective: The patient was admitted with UTI ESBL. The patient had acute kidney injury secondary t o toxic ATN, recovered. Physical Examination: Vital Signs: Blood pressure 121/64, pulse of 90, afebrile. The patient had urine output of 3100. Chest: Clear to auscultation. Heart: S1, S2. Systolic murmur. Abdomen: Soft, nontender. Extremities: No edema. Neuro: Alert. No focality. Laboratory Data: WBC 7, H and H of 7.5/23.3. Sodium 142, potassium 3.6, bicarb 29, BUN 9, creatinin e 0.4, calcium 8.3, phosphorus 2.5, magnesium 1.6, albumin 1.7. Corrected calcium is 9.9. Current Medications: The patient on include meropenem, Lovenox, amiodarone, Jevity, magnesium oxide. Assessment And Plan: 1.Acute kidney injury secondary to toxic ATN and prerenal, recovered, resolved. 2.Hypomagnesemia. We will supplement. 3.Hypernatremia, resolved. 4.Urinary tract infection ESBL. Continue meropenem as by primary. 5.Colitis, status post treatment. We will follow up with the primary. The patient cleared from the Renal standpoint for discharge planning. DAVIS Voice ID: [id number] Report ID: [id number]
--- NOTE | 2020-09-18 12:19 | P.PN ---
Subjective Date of Service: 09/18/20 Primary Care Provider: Dr. Galan Chief Complaint: Acute renal failure, anemia, UTI Subjective: No new changes (patient seems more alert/oriented today, denies hallucinations overnight, but admits to intermittent hallucinations for a "long time". Otherwise doing ok, no new complaints.) Review of Systems 10-point ROS is otherwise unremarkable Physical Examination - Vital Signs Temperature: 97.0 F Blood Pressure: 105/58 Pulse: 91 Respirations: 18 Pulse Ox (%): 100 Assessment & Plan Physician Review Additional Text: Physical Exam General: In no apparent distress, AAOx3 HEENT: Mucous membr. moist/pink, sclera anicteric Respiratory: Clear to auscultation bilaterally, Normal air movement Cardiovascular: Regular rate/rhythm, Normal S1 S2, trace b/l lower extremity edema Gastrointestinal: Soft, nontender, non-distended, PEG in place Musculoskeletal: No joint swelling/tenderness : chronic indwelling brito Problem List Acute renal failure, resolved acute on chronic anemia, acute blood loss abnormal uterine bleeding enlarged, heterogenous uterus History of DVT, on chronic eliquis Urinary tract infection complicated with long-term Brito catheter use, Proteus ESBL Chronic diastolic congestive heart failure S/P pacemaker defibrillator placement Hypotension, with h/o HTN Diabetes mellitus type 2 with hypoglycemia Hyperlipidemia RA COPD Anxiety -FRANNY resolved -hypotension/slight bradycardia - probably secondary to overmedication. improved / more stable, off beta norma -nephrology consulted and assisting -continue PEG tube feeding. acute on chronic anemia, acute blood loss abnormal uterine bleeding enlarged, heterogenous uterus History of DVT, on chronic eliquis -anemia - pt has chronic anemia, iron deficiency. with recent uterine bleeding, s/p total of 3 units PRBC since admission. -h/o iron deficiency, guaic negative stool in ED -abnormal uterine bleeding 1 month and 2 days prior to admission. -transvaginal U/S: heterogenous, enlarged uterus, endometrial biopsy unsuccessful x2. can be done as outpatient -hemoglobin is relatively stable now, 7.5 -CTA chest negative for PE, doppler negative for DVT. -Eliquis discontinued given her high risk of bleeding and negative PE and DVT Urinary tract infection complicated with long-term Brito catheter use, Proteus ESBL -Urine grew ESBL proteus; PICC line placed for outpatient IV antibiotics. -Infectious disease recommended 2 weeks of IV meropenem or Invanz. Vanc discontinued -stop date: 09/20 evening -Blood grew staph epidermis in all bottles. skin contaminants per ID. -repeat blood cultures x2: No growth. -patient completed Flagyl for bacterial vaginosis. Hallucinations -unclear etiology, pt with h/o anxiety, possible medication induced/component? -psychiatry consulted for assistance -on further discussion with patient and family, seems she has been having these for a few months, intermittently -discussed with psych, recommended olazapine DM2, HLD, RA, COPD, Anxiety -accucheks/sliding scale insulin -continue PT. -CT abdomen also reports distended sigmoid colon which is chronic. -CT head obtained due to confusion: No acute disease. -continue amiodarone for VT. Cardiology input appreciated. -Echocardiogram done - normal EF, no significant cardiac findings -optimize magnesium and potassium levels. Disposition: denied SNF, plan for home with home health, anticipate dc home tomorrow, will update family will need IV antibiotics through 09/20 Time Spent Managing Pts Care (In Minutes): 40
[2020-09-18] MEDS: OLANZapine 2.5 MG TAB PO SCH (21:03)
[2020-09-19 04:50] LABS: Absolute Lymphocytes (CBC) 1.2 K/uL (0.7-4.9); Basophils % 0.3 % (0-1.3); Hematocrit 21.8 % (36.0-45.0); Lymphocytes % 21.4 % (15.3-44.8); MPV 7.9 fL (7.6-11.3); RBC Red Blood Cell Count 2.36 M/uL (3.86-4.86)
[2020-09-19 05:14] LABS: BUN Blood Urea Nitrogen 11 mg/dL (7-18); Bicarbonate 31 mmol/L (21-32); Glucose Level 81 mg/dL (74-106); Magnesium 1.9 mg/dL (1.8-2.4); Potassium 3.8 mmol/L (3.5-5.1); Sodium Level 139 mmol/L (136-145)
[2020-09-19] MEDS: POTASSIUM 25 MEQ EFFERV TAB FT SCH (07:24)
[2020-09-19] MEDS: LACTOBACILLUS/ACIDOPHILUS TAB PO SCH ×2 (07:24→20:01)
[2020-09-19] MEDS: VENLAFAXINE HCL XR 75 MG CAP PO SCH (07:24)
[2020-09-19] MEDS: FE SULF/FA/VIT B COMP & C TAB PO SCH (07:24)
[2020-09-19] MEDS: AMIODARONE HCL 200 MG TAB PO SCH ×2 (07:24→20:01)
[2020-09-19] MEDS: JEVITY 1.2 CAL LIQUID 1,000 ML BOT FT SCH ×5 (07:25→20:01)
[2020-09-19] MEDS: ENOXAPARIN 40 MG/0.4 ML SQ SCH (07:25)
[2020-09-19] MEDS: INSULIN -REGULAR HUMAN 50 UNIT/0.5 ML ML SQ SCH ×4 (07:30→20:26)
[2020-09-19] MEDS: Meropenem 1 GM/100 ML BAG IV SCH ×2 (08:00→20:02)
[2020-09-19 09:38] LABS: Hematocrit 22.2 % (36.0-45.0)
[2020-09-19] MEDS ORDERED: Magnesium Sulfate 2gm IVPB 2 G/50 ML BAG IV ONE (09:53)
[2020-09-19] MEDS ORDERED: POTASSIUM 25 MEQ EFFERV TAB PO ONE (09:54)
--- NOTE | 2020-09-19 10:13 | P.PN ---
Subjective Date of Service: 09/19/20 Primary Care Provider: Dr. Galan Chief Complaint: Acute renal failure, anemia, UTI Subjective: Other (reports feeling ok, somewhat tired, wanting to go home. without new complaints, no acute events overnight) Review of Systems 10-point ROS is otherwise unremarkable Physical Examination - Vital Signs Temperature: 97.1 F Blood Pressure: 131/63 Pulse: 86 Respirations: 16 Pulse Ox (%): 99 Assessment & Plan Physician Review Additional Text: Physical Exam General: NAD, AAOx3 HEENT: MMM, sclera anicteric Respiratory: Clear to auscultation bilaterally, Normal air movement Cardiovascular: Regular rate/rhythm, Normal S1 S2, trace b/l lower extremity edema Gastrointestinal: Soft, nontender, non-distended, PEG in place Musculoskeletal: No joint swelling/tenderness : chronic indwelling brito Problem List Acute renal failure, resolved acute on chronic anemia, acute blood loss abnormal uterine bleeding enlarged, heterogenous uterus History of DVT, on chronic eliquis Urinary tract infection complicated with long-term Brito catheter use, Proteus ESBL Chronic diastolic congestive heart failure S/P pacemaker defibrillator placement Hypotension, with h/o HTN Diabetes mellitus type 2 with hypoglycemia Hyperlipidemia RA COPD Anxiety -FRANNY resolved -hypotension/slight bradycardia - secondary to overmedication. improved / more stable, off beta norma -nephrology consulted and assisting -continue PEG tube feeding. acute on chronic anemia, acute blood loss abnormal uterine bleeding enlarged, heterogenous uterus History of DVT, on chronic eliquis -anemia - pt has chronic anemia, iron deficiency. with recent uterine bleeding, s/p total of 3 units PRBC since admission. -h/o iron deficiency, guaic negative stool in ED -abnormal uterine bleeding 1 month and 2 days prior to admission. -transvaginal U/S: heterogenous, enlarged uterus, endometrial biopsy unsuccessful x2. can be done as outpatient -hgb now <7, will transfuse 1u PRBC, no evidence of frnk bleeding -CTA chest negative for PE, doppler negative for DVT. -Eliquis discontinued given her high risk of bleeding and negative PE and DVT, dc lovenox, start SCDs Urinary tract infection complicated with long-term Brito catheter use, Proteus ESBL -Urine grew ESBL proteus; PICC line placed for outpatient IV antibiotics. -Infectious disease recommended 2 weeks of IV meropenem or Invanz. Vanc discontinued -stop date: 09/20 evening -Blood grew staph epidermis in all bottles. skin contaminants per ID. -repeat blood cultures x2: No growth. -patient completed Flagyl for bacterial vaginosis Hallucinations -psychiatry consulted for assistance -on further discussion with patient and family, seems she has been having these for a few months, intermittently -discussed with psych, recommended olazapine, started 09/18 DM2, HLD, RA, COPD, Anxiety -accucheks/sliding scale insulin -continue PT. -CT abdomen also reports distended sigmoid colon which is chronic. -CT head obtained due to confusion: No acute disease. -continue amiodarone for VT. Cardiology input appreciated. - dc on 200mg qday -Echocardiogram done - normal EF, no significant cardiac findings -optimize magnesium and potassium levels. Disposition: denied SNF, plan for home with home health, planned on dc today, however hgb decreased will need transfusion will need IV antibiotics through 09/20 Time Spent Managing Pts Care (In Minutes): 35
[2020-09-19] MEDS ORDERED: NA CHLORIDE 0.9% 250 ML IV SCH (11:00)
--- NOTE | 2020-09-19 11:45 | P.PN ---
Subjective Date of Service: 09/19/20 Primary Care Provider: Dr. Galan Chief Complaint: Acute renal failure, anemia, UTI Patient seen examined at bedside, severe anemia noted on H&H. Review of Systems 10-point ROS is otherwise unremarkable Physical Examination - Vital Signs Temperature: 97.1 F Blood Pressure: 131/63 Pulse: 86 Respirations: 16 Pulse Ox (%): 99 - Studies Laboratory Last Values WBC 9.90 K/uL (4.3-10.9) 09/05/20 15:30 RBC 1.93 M/uL (3.86-4.86) L 09/05/20 15:30 Hgb 6.0 g/dL (12.0-15.0) L* 09/05/20 15:30 Hct 17.5 % (36.0-45.0) L* 09/05/20 15:30 MCV 90.8 fL (80-100) 09/05/20 15:30 MCH 31.2 pg (27.0-35.0) 09/05/20 15:30 MCHC 34.3 g/dL (32.0-36.0) 09/05/20 15:30 RDW 16.4 % (12.1-15.2) H 09/05/20 15:30 Plt Count 423 K/uL (152-406) H 09/05/20 15:30 MPV 7.2 fL (7.6-11.3) L 09/05/20 15:30 Neutrophils % 81.6 % (41.7-73.7) H 09/05/20 15:30 Lymphocytes % 8.9 % (15.3-44.8) L 09/05/20 15:30 Monocytes % 8.2 % (3.3-12.3) 09/05/20 15:30 Eosinophils % 1.1 % (0-4.4) 09/05/20 15:30 Basophils % 0.2 % (0-1.3) 09/05/20 15:30 Absolute Neutrophils 8.0 K/uL (1.8-8.0) 09/05/20 15:30 Absolute Lymphocytes 0.9 K/uL (0.7-4.9) 09/05/20 15:30 Absolute Monocytes 0.8 K/uL (0.1-1.3) 09/05/20 15:30 Absolute Eosinophils 0.1 K/uL (0-0.5) 09/05/20 15:30 Absolute Basophils 0.0 K/uL (0-0.5) 09/05/20 15:30 PT 29.6 SECONDS (9.5-12.5) H 09/05/20 15:30 INR 2.55 09/05/20 15:30 Sodium 128 mmol/L (136-145) L 09/05/20 15:30 Potassium 3.8 mmol/L (3.5-5.1) 09/05/20 15:30 Chloride 97 mmol/L (98-107) L 09/05/20 15:30 Carbon Dioxide 23 mmol/L (21-32) 09/05/20 15:30 BUN 56 mg/dL (7-18) H 09/05/20 15:30 Creatinine 2.23 mg/dL (0.55-1.3) H 09/05/20 15:30 Estimated GFR 26 mL/min (=/>90) L 09/05/20 15:30 Glucose 92 mg/dL (74-106) 09/05/20 15:30 Lactic Acid 1.1 mmol/L (0.4-2.0) 09/05/20 15:30 Calcium 8.6 mg/dL (8.5-10.1) 09/05/20 15:30 Magnesium 2.5 mg/dL (1.8-2.4) H D 09/05/20 15:30 Iron 27.0 ug/dL (50-170) L 09/05/20 15:30 TIBC 119 ug/dL (250-460) L 09/05/20 15:30 Transferrin 85 mg/dL (200-360) L 09/05/20 15:30 Transferrin % Sat 22.7 % (20.0-50.0) 09/05/20 15:30 Ferritin 2674.0 ng/mL (8-388) H 09/05/20 15:30 Total Bilirubin 0.4 mg/dL (0.2-1.0) 09/05/20 15:30 Direct Bilirubin 0.2 mg/dL (0-0.2) 09/05/20 15:30 AST 30 U/L (15-37) 09/05/20 15:30 ALT 30 U/L (12-78) 09/05/20 15:30 Alkaline Phosphatase 127 U/L (45-117) H 09/05/20 15:30 Rapid Troponin I < 0.02 ng/mL (0.0-0.045) 09/05/20 15:30 NT-Pro-B Natriuret Pep 966 pg/mL (<125) H 09/05/20 15:30 Serum Total Protein 9.0 g/dL (6.4-8.2) H 09/05/20 15:30 Albumin 1.7 g/dL (3.4-5.0) L 09/05/20 15: Globulin 7.3 g/dL (2.3-3.5) H 09/05/20 15: Albumin/Globulin Ratio 0.2 (1.1-1.8) L 09/05/20 15: Procalcitonin 0.40 ng/mL (<0.050) H 09/05/20 15:30 Urine Color Yellow (Yellow) 09/05/20 18: Urine Appearance Turbid (Clear) 09/05/20 18: Urine pH 5.5 (5.0-7.0) 09/05/20 18: Ur Specific Start <=1.005 (1.005-1.030) 09/05/20 18: Glucose (UA)(Auto) Negative (Negative) 09/05/20 18: Urine Ketones Negative (Negative) 09/05/20 18: Urine Blood 3+ (Negative) H 09/05/20 18: Urine Nitrite Negative (Negative) 09/05/20: Urine Bilirubin Negative (Negative) 09/05/20 18: Urine Urobilinogen 0.2 mg/dL (0.2-1.0) 09/05/20 18:32 Ur Leukocyte Esterase 3+ (Negative) H 09/05/20 18: Urine RBC 5-10 /HPF (NONE SEEN) H 09/05/20 18:32 Urine WBC 20-50 /HPF (<5) H 09/05/20 18:32 Ur Squamous Epith Cells <5 /HPF (NONE SEEN) 09/05/20 18:32 Ur Urothelial Cells Cancelled 09/05/20 18:30 Calcium Oxalate Crystal Cancelled 09/05/20 18:30 Uric Acid Crystals Cancelled 09/05/20 18:30 Triple Phos Crystals Cancelled 09/05/20 18:30 Other Crystals Cancelled 09/05/20 18:30 Amorphous Sediment Cancelled 09/05/20 18:30 Glitter Cells Cancelled 09/05/20 18:30 Urine Bacteria >50 /HPF (<20) H 09/05/20 18:32 Hyaline Casts Cancelled 09/05/20 18:30 Fine Granular Casts Cancelled 09/05/20 18:30 Coarse Granular Casts Cancelled 09/05/20 18:30 Waxy Casts Cancelled 09/05/20 18:30 RBC Casts Cancelled 09/05/20 18:30 WBC Casts Cancelled 09/05/20 18:30 Urine Mucus Cancelled 09/05/20 18:30 Urine Other Cancelled 09/05/20 18:30 Urine Trichomonas Cancelled 09/05/20 18:30 Urine Yeast Cancelled 09/05/20 18:30 Ur Yeast w Hyphae Cancelled 09/05/20 18:30 Urine Yeast (Budding) Cancelled 09/05/20 18:30 Urine Sperm Cancelled 09/05/20 18:30 Ur Microscopic Review Cancelled 09/05/20 18:32 Urine Culture Reflexed Reflexed 09/05/20 18:32 Urine Total Volume Cancelled 09/05/20 18:30 Urine Total Protein Trace (Negative) H 09/05/20 18:32 SARS-CoV-2 RNA (RT-PCR) Negative (NEGATIVE) 09/05/20 15:30 ABO/Rh O POSITIVE 09/05/20 17:23 Solid Phase Ab Screen Negative 09/05/20 17:23 Crossmatch See Detail 09/05/20 17:23 Assessment And Plan - Plan General: Alert, In no apparent distress HEENT: Atraumatic, Normocephalic Neck: Supple, 2+ carotid pulse no bruit Respiratory: Clear to auscultation bilaterally, Normal air movement Cardiovascular: No edema, Normal pulses Capillary refill: <2 Seconds Gastrointestinal: Normal bowel sounds Musculoskeletal: No clubbing, No swelling, No contractures Antibiotics: Flagyl Start: 09/08 stop: 09/15 Meropenem Start: 09/06 stop: 09/20 Assessment: ESBL urinary tract infection Anemia Obesity Plan: Over the week and patient's meropenem antibiotic , patient was started on vancomycin and missed a single dose of meropenem. This morning patient was restarted on meropenem and vancomycin was discontinued, taking patient will still completes antibiotics on 09/20 however after she recieves a PM dose -continue IV meropenem for a total duration of 2 weeks given patient's the current history of urinary tract infections. Right arm PICC line placed. -blood cultures: Blood cultures taken on 09/05 2 bottles grew Staph epi 1 bottle grew Staph hominis and 1 bottle show no growth. This is likely due continue contamination. Patient empirically covered with meropenem. Repeat blood cultures taken on 09/08 showed no growth -medical management per primary team -continue monitor CBC and BMP -continue to monitor temperature curve Plan of care discussed with Dr. Chawla Physician Review Additional Text: Physical Exam General: NAD, AAOx3
[2020-09-19] MEDS: NA CHLORIDE 0.9% 250 ML IV SCH (13:53)
--- NOTE | 2020-09-19 14:27 | PN ---
Date of Progress Note: 09/19/2020 Subjective: The patient was admitted with PEG tube malfunction, altered mental status, UTI, and hype rnatremia. The patient is stable. Physical Examination: Vital Signs: Blood pressure 112/54, pulse of 80, afebrile. Chest: Clear to auscultation. Heart: S1, S2. Systolic murmur. Abdomen: Soft, nontender. Extremities: No edema. Neuro: Alert. No focality. Laboratory Data: Hemoglobin dropped further 6.9, hematocrit 22.2. Sodium 139, potassium 3.8, bicarb 31, BUN 11, creatinine 0.5, calcium 8.3, magnesium 1.9. Current Medications: The patient on include; 1.Meropenem. 2.Amiodarone. 3. . 4.Magnesium oxide. Assessment And Plan: 1.Acute kidney injury secondary to prerenal/toxic ATN, recovered, resolved. 2.Hypernatremia, resolved. 3.Urinary tract infection. Continue meropenem secondary to ESBL. 4.Anemia mostly secondary to GI loss. We will transfuse. 5.Hypokalemia, hypomagnesemia. We will supplement. RACHELLE/NATE Voice ID: [id number] Report ID: [id number]
--- NOTE | 2020-09-19 16:13 | RAD REPORT ---
EXAM DESCRIPTION: CT - Abdomen Pelvis Wo Contrast - 09/19/2020 2:33 pm CLINICAL HISTORY: abdomen distended COMPARISON: Abdomen Pelvis Wo Contrast dated 09/05/2020 TECHNIQUE: Axial [address] imaging of the abdomen and pelvis was performed without IV contrast. No IV contrast was given because of allergy, abnormal renal function, patient refusal or physician re quest. No oral contrast administered. All CT scans are performed using dose optimization technique as appropriate and may include automated exposure control or mA/KV adjustment according to patient size. FINDINGS: Scarring and bronchiectasis changes are present in the posterior gutter on the left simila r to comparison. No acute lung base finding. No pericardial thickening or effusion. The liver, spleen and pancreas show no suspicious findings on non-contrast imaging. Gallbladder is ab sent. No biliary tree dilatation. No right-sided hydronephrosis. No right-sided obstructing or nonobstructing calculi. Double pigtail s tent is in place in the left collecting system. No stone seen along the course of the stent. A very f aint 1 mm calcification present posterior lower pole left kidney. Urinary bladder is fully contracted around a [place] catheter. No significant adrenal finding. Isodense renal masses and pyelonephritis c annot be excluded in the absence of IV contrast. Right deviation of the uterus is present. No primary ovarian process seen. PEG tube is in place in the decompressed stomach. No acute gastric finding. No small bowel abnormalit y. Appendicitis is not suspected. There is moderate fluid in stool in the right-side of the colon. Pa alyson has a distended air-filled and redundant transverse colon and splenic flexure. There is dilatio n of a tortuous and redundant sigmoid colon which extends into the anterior superior left upper abdom en. This is more pronounced than seen previously. No obstructing mass or volvulus. This degree of tra nsverse and sigmoid colon distention/dilatation would account for a distended abdomen. No free air, free fluid or inflammatory stranding. No hernia, mass or bulky lymphadenopathy. No suspicious bony findings. Bony degenerative changes are present. IMPRESSION: Patient is a tortuous and redundant sigmoid colon that is dilated and extends into the a nterior superior left upper abdomen. Patient also has adjacent gas distention of a redundant transver se colon. Collectively the colon distention/dilatation would account for abdominal distention. There is no obstructing mass or volvulus. The colon findings are more prominent but not new from the September 05 imaging. No free air, pneumatosis or other surgically emergent finding. Full assessment is limited is the absence of IV contrast.
[2020-09-19] MEDS: OLANZapine 2.5 MG TAB PO SCH (20:01)
[2020-09-20] MEDS ORDERED: NA CHLORIDE 0.9% 250 ML IV SCH (03:00)
[2020-09-20 05:08] LABS: Absolute Lymphocytes (CBC) 1.1 K/uL (0.7-4.9); Basophils % 0.5 % (0-1.3); Hematocrit 27.6 % (36.0-45.0); Lymphocytes % 18.9 % (15.3-44.8); MPV 7.8 fL (7.6-11.3); RBC Red Blood Cell Count 3.05 M/uL (3.86-4.86)
[2020-09-20 05:41] LABS: BUN Blood Urea Nitrogen 10 mg/dL (7-18); Bicarbonate 30 mmol/L (21-32); Glucose Level 72 mg/dL (74-106); Phosphorus 3.4 mg/dL (2.5-4.9); Potassium 3.1 mmol/L (3.5-5.1); Sodium Level 142 mmol/L (136-145)
--- NOTE | 2020-09-20 06:09 | P.PN ---
Subjective Date of Service: 09/20/20 Primary Care Provider: Dr. Galan Chief Complaint: Acute renal failure, anemia, UTI Subjective: No new changes Has hallucinations. Physical Examination - Vital Signs Temperature: 98.2 F Blood Pressure: 118/57 Pulse: 91 Respirations: 20 Pulse Ox (%): 97 - Physical Exam General: Other (appears chronically ill) HEENT: Atraumatic, Normocephalic Neck: Supple Respiratory: Normal air movement Cardiovascular: No rubs, No murmurs Gastrointestinal: Soft and benign Musculoskeletal: No clubbing, Swelling Integumentary: No warmth Neurological: Normal tone External genitalia: Deferred Rectal: Deferred Assessment And Plan - Plan # Acute kidney injury secondary to prerenal, secondary to GI loss, resolved Adeq fluid intake as able # Hypokalemia Monitor/replete prn # ESBL Proteus UTI Merrem d/c'ed today # BLE edema, 2/2 severe hypoalbuminemia + significant pulmo Htn +/- ? nephrotic syndrome +nephrotic-range proteinuria, severe hypoalbuminemia, anemia, some HLD SPEP abnormal in Jun 2019 HBV, HCV, HIV neg in Jun 2019 HBA1c wnl in Jun 2020 F/u serum CAMILLE, K:L SFLC, random UPEP, ENRIQUE Hx of pulmonary Htn. Chest CT in June 2020 showed a dilated main pulmonary artery. CT PE on 09/07/20 showed pulmo Htn but no PE. TTE showed moderate pulmo Htn. Pulmo Htn likely more than just trivial Hx of chronic diastolic heart failure status post PPM/AICD Hx of leg DVT on Eliquis BLE US on 09/07/20 showed no DVT BNP elevated Troponin negative TSH within normal limits No e/o advanced liver dse Low Na diet Do not restrict free water intake unless hyponatremic May need to maintain some BLE edema to maintain adeq preload, as her pulmo Htn is likely more than just trivial Start BLE knee-high graduated compression stockings, at least 20-30 mmHg ankle pressure, to lessen edema # Anemia S/p pRBC transf Monitor H/H # Nutrition On PEG feeding # Hallucinations Psyche consult # Dispo Ok to dc today to home w/ home health services Physician Review Additional Text: Physical Exam General: NAD, AAOx3
[2020-09-20] MEDS: KCL 20 MEQ/100 mL IVPB 20 MEQ/100 ML BAG IV SCH ×2 (06:59→09:40)
[2020-09-20] MEDS: INSULIN -REGULAR HUMAN 50 UNIT/0.5 ML ML SQ SCH ×3 (07:30→16:29)
[2020-09-20] MEDS: Meropenem 1 GM/100 ML BAG IV SCH ×2 (07:50→15:43)
[2020-09-20] MEDS: VENLAFAXINE HCL XR 75 MG CAP PO SCH (07:51)
[2020-09-20] MEDS: POTASSIUM 25 MEQ EFFERV TAB FT SCH (07:51)
[2020-09-20] MEDS: LACTOBACILLUS/ACIDOPHILUS TAB PO SCH (07:51)
[2020-09-20] MEDS: AMIODARONE HCL 200 MG TAB PO SCH (07:51)
[2020-09-20] MEDS: JEVITY 1.2 CAL LIQUID 1,000 ML BOT FT SCH ×4 (07:52→17:13)
[2020-09-20] MEDS: FE SULF/FA/VIT B COMP & C TAB PO SCH (07:52)
[2020-09-20] MEDS ORDERED: MAGNESIUM OXIDE 400 MG TAB PO SCH (09:00)
[2020-09-20 13:00] LABS: C.trachomatis RNA,TMA Not Detected (Not Detected)
--- NOTE | 2020-09-20 14:49 | P.PN ---
Subjective Date of Service: 09/20/20 Primary Care Provider: Dr. Galan Chief Complaint: Acute renal failure, anemia, UTI Patient seen examined at bedside, no acute events were past 24 hr. Review of Systems 10-point ROS is otherwise unremarkable Physical Examination - Vital Signs Temperature: 97.4 F Blood Pressure: 106/57 Pulse: 84 Respirations: 18 Pulse Ox (%): 94 - Studies Laboratory Last Values WBC 9.90 K/uL (4.3-10.9) 09/05/20 15:30 RBC 1.93 M/uL (3.86-4.86) L 09/05/20 15:30 Hgb 6.0 g/dL (12.0-15.0) L* 09/05/20 15:30 Hct 17.5 % (36.0-45.0) L* 09/05/20 15:30 MCV 90.8 fL (80-100) 09/05/20 15:30 MCH 31.2 pg (27.0-35.0) 09/05/20 15:30 MCHC 34.3 g/dL (32.0-36.0) 09/05/20 15:30 RDW 16.4 % (12.1-15.2) H 09/05/20 15:30 Plt Count 423 K/uL (152-406) H 09/05/20 15:30 MPV 7.2 fL (7.6-11.3) L 09/05/20 15:30 Neutrophils % 81.6 % (41.7-73.7) H 09/05/20 15:30 Lymphocytes % 8.9 % (15.3-44.8) L 09/05/20 15:30 Monocytes % 8.2 % (3.3-12.3) 09/05/20 15:30 Eosinophils % 1.1 % (0-4.4) 09/05/20 15:30 Basophils % 0.2 % (0-1.3) 09/05/20 15:30 Absolute Neutrophils 8.0 K/uL (1.8-8.0) 09/05/20 15:30 Absolute Lymphocytes 0.9 K/uL (0.7-4.9) 09/05/20 15:30 Absolute Monocytes 0.8 K/uL (0.1-1.3) 09/05/20 15:30 Absolute Eosinophils 0.1 K/uL (0-0.5) 09/05/20 15:30 Absolute Basophils 0.0 K/uL (0-0.5) 09/05/20 15:30 PT 29.6 SECONDS (9.5-12.5) H 09/05/20 15:30 INR 2.55 09/05/20 15:30 Sodium 128 mmol/L (136-145) L 09/05/20 15:30 Potassium 3.8 mmol/L (3.5-5.1) 09/05/20 15:30 Chloride 97 mmol/L (98-107) L 09/05/20 15:30 Carbon Dioxide 23 mmol/L (21-32) 09/05/20 15:30 BUN 56 mg/dL (7-18) H 09/05/20 15:30 Creatinine 2.23 mg/dL (0.55-1.3) H 09/05/20 15:30 Estimated GFR 26 mL/min (=/>90) L 09/05/20 15:30 Glucose 92 mg/dL (74-106) 09/05/20 15:30 Lactic Acid 1.1 mmol/L (0.4-2.0) 09/05/20 15:30 Calcium 8.6 mg/dL (8.5-10.1) 09/05/20 15:30 Magnesium 2.5 mg/dL (1.8-2.4) H D 09/05/20 15:30 Iron 27.0 ug/dL (50-170) L 09/05/20 15:30 TIBC 119 ug/dL (250-460) L 09/05/20 15:30 Transferrin 85 mg/dL (200-360) L 09/05/20 15:30 Transferrin % Sat 22.7 % (20.0-50.0) 09/05/20 15:30 Ferritin 2674.0 ng/mL (8-388) H 09/05/20 15:30 Total Bilirubin 0.4 mg/dL (0.2-1.0) 09/05/20 15:30 Direct Bilirubin 0.2 mg/dL (0-0.2) 09/05/20 15:30 AST 30 U/L (15-37) 09/05/20 15:30 ALT 30 U/L (12-78) 09/05/20 15:30 Alkaline Phosphatase 127 U/L (45-117) H 09/05/20 15:30 Rapid Troponin I < 0.02 ng/mL (0.0-0.045) 09/05/20 15:30 NT-Pro-B Natriuret Pep 966 pg/mL (<125) H 09/05/20 15:30 Serum Total Protein 9.0 g/dL (6.4-8.2) H 09/05/20 15:30 Albumin 1.7 g/dL (3.4-5.0) L 09/05/20 15: Globulin 7.3 g/dL (2.3-3.5) H 09/05/20 15: Albumin/Globulin Ratio 0.2 (1.1-1.8) L 09/05/20 15: Procalcitonin 0.40 ng/mL (<0.050) H 09/05/20 15:30 Urine Color Yellow (Yellow) 09/05/20 18: Urine Appearance Turbid (Clear) 09/05/20 18: Urine pH 5.5 (5.0-7.0) 09/05/20 18: Ur Specific Ramsay <=1.005 (1.005-1.030) 09/05/20 18: Glucose (UA)(Auto) Negative (Negative) 09/05/20 18: Urine Ketones Negative (Negative) 09/05/20 18: Urine Blood 3+ (Negative) H 09/05/20 18: Urine Nitrite Negative (Negative) 09/05/20: Urine Bilirubin Negative (Negative) 09/05/20 18: Urine Urobilinogen 0.2 mg/dL (0.2-1.0) 09/05/20 18:32 Ur Leukocyte Esterase 3+ (Negative) H 09/05/20 18: Urine RBC 5-10 /HPF (NONE SEEN) H 09/05/20 18:32 Urine WBC 20-50 /HPF (<5) H 09/05/20 18:32 Ur Squamous Epith Cells <5 /HPF (NONE SEEN) 09/05/20 18:32 Ur Urothelial Cells Cancelled 09/05/20 18:30 Calcium Oxalate Crystal Cancelled 09/05/20 18:30 Uric Acid Crystals Cancelled 09/05/20 18:30 Triple Phos Crystals Cancelled 09/05/20 18:30 Other Crystals Cancelled 09/05/20 18:30 Amorphous Sediment Cancelled 09/05/20 18:30 Glitter Cells Cancelled 09/05/20 18:30 Urine Bacteria >50 /HPF (<20) H 09/05/20 18:32 Hyaline Casts Cancelled 09/05/20 18:30 Fine Granular Casts Cancelled 09/05/20 18:30 Coarse Granular Casts Cancelled 09/05/20 18:30 Waxy Casts Cancelled 09/05/20 18:30 RBC Casts Cancelled 09/05/20 18:30 WBC Casts Cancelled 09/05/20 18:30 Urine Mucus Cancelled 09/05/20 18:30 Urine Other Cancelled 09/05/20 18:30 Urine Trichomonas Cancelled 09/05/20 18:30 Urine Yeast Cancelled 09/05/20 18:30 Ur Yeast w Hyphae Cancelled 09/05/20 18:30 Urine Yeast (Budding) Cancelled 09/05/20 18:30 Urine Sperm Cancelled 09/05/20 18:30 Ur Microscopic Review Cancelled 09/05/20 18:32 Urine Culture Reflexed Reflexed 09/05/20 18:32 Urine Total Volume Cancelled 09/05/20 18:30 Urine Total Protein Trace (Negative) H 09/05/20 18:32 SARS-CoV-2 RNA (RT-PCR) Negative (NEGATIVE) 09/05/20 15:30 ABO/Rh O POSITIVE 09/05/20 17:23 Solid Phase Ab Screen Negative 09/05/20 17:23 Crossmatch See Detail 09/05/20 17:23 Assessment And Plan - Plan General: Alert, In no apparent distress HEENT: Atraumatic, Normocephalic Neck: Supple, 2+ carotid pulse no bruit Respiratory: Clear to auscultation bilaterally, Normal air movement Cardiovascular: No edema, Normal pulses Capillary refill: <2 Seconds Gastrointestinal: Normal bowel sounds Musculoskeletal: No clubbing, No swelling, No contractures Antibiotics: Flagyl Start: 09/08 stop: 09/15 Meropenem Start: 09/06 stop: 09/20 Assessment: ESBL urinary tract infection Anemia Obesity Plan: Over the week and patient's meropenem antibiotic , patient was started on vancomycin and missed a single dose of meropenem. This morning patient was restarted on meropenem and vancomycin was discontinued, taking patient will still completes antibiotics on 09/20 however after she recieves a PM dose -continue IV meropenem for a total duration of 2 weeks given patient's the current history of urinary tract infections. Right arm PICC line placed. -blood cultures: Blood cultures taken on 09/05 2 bottles grew Staph epi 1 bottle grew Staph hominis and 1 bottle show no growth. This is likely due continue contamination. Patient empirically covered with meropenem. Repeat blood cultures taken on 09/08 showed no growth -medical management per primary team -continue monitor CBC and BMP -continue to monitor temperature curve Plan of care discussed with Dr. Chawla
[2020-09-20 16:40] VITALS: O2SAT 99
--- NOTE | 2020-09-20 17:32 | P.DS ---
Admission Date: 09/05/20 Discharge Date: 09/20/20 Primary Care Provider: Dr. Galan Disposition: DC HOME/HOME HEALTH CARE Discharge Condition: GOOD Reason for Admission: Acute renal failure, anemia, UTI Consultations: Nephrology - Dr. Lopez / Isiah / Kaye / Rebecca ID - Dr. Chawla TIPPLE REPAIRER - Dr. Buenrostro Cardiology - Dr. Sutton Procedures: CXR (09/05): The lungs appear clear of acute infiltrate. The heart is mildly enlarged. Pacemaker lead in place IMPRESSION: No acute abnormalities displayed CT Head (09/05): FINDINGS: An intracranial bleed is not seen . Prominence of the fourth ventricle is unchanged. No extra-axial fluid collection is noted. Mild low-density areas within periventricular, deep and subcortical white matter likely represent ischemic changes secondary to small vessel disease. Fluid within the sinuses/ mastoids is not seen. IMPRESSION: No acute intracranial abnormality is seen. If patient's symptoms persist MRI of the brain would be recommended. CT Abd/pelvis (09/05) FINDINGS: The evaluation of solid organs, vessels and bowel is limited secondary to the lack of contrast administration. The liver, spleen, pancreas, adrenals and right kidney appear grossly normal. Stable mild left hydronephrosis. Percutaneous tube within the stomach. Chronic dilatation of the sigmoid colon measuring 10.5 centimeters. A Brito catheter within the bladder No evidence of diverticulitis IMPRESSION: Chronic dilatation of the sigmoid colon measuring 10.5 centimeters U/S Renal (09/05): FINDINGS: The right kidney measures 10 cm with a normal echotexture. The left kidney measures 10 cm with a normal echotexture. Mild left hydronephrosis. Ureteral stent in place. The bladder is decompressed. A Brito catheter is present IMPRESSION: Mild left hydronephrosis CTA Chest (09/07): FINDINGS: No pulmonary emboli are identified. Pulmonary arteries are enlarged and have increased since the 2014 comparison. The aorta as imaged shows no acute or suspicious finding. No pericardial thickening or effusion. Left ventricle is not enlarged. There is questionable thickening in the left ventricular myocardium though CT imaging sensitivity is limited in evaluating this abnormality. No infiltrate or mass in the lung parenchyma. No pleural effusion or pleural thickening. Atelectasis changes are present along the posterior aspect left upper lobe and in the posterior gutter on the left. Minimal atelectasis in the medial right lower lung field. No mediastinal or hilar suspicious masses. No chest wall masses or abnormal axillary lymphadenopathy. IMPRESSION: No pulmonary emboli identified. Pulmonary arteries are enlarged and have increased since 2013.Correlation can be made with any other findings are history that may be indicate pulmonary artery hypertension. Questionable thickening of the left ventricular myocardium. CT sensitivity is li mited in evaluating myocardial thickening. U/S Venous Extremity (09/07): No DVT in either lower extremity. U/S Pelvis (09/08): FINDINGS: The uterus appears prominent in size and heterogenous. 8.9 x 5.3 x 7.0 cm.. The endometrial stripe is poorly defined. Both ovaries are obscured by bowel gas. No adnexal masses. No significant pelvic ascites. IMPRESSION: Enlarged and heterogenous uterus could indicate adenomyosis. KUB (09/09): FINDINGS: There is a prominent distention of the colon with air seen. No free air present. Left-sided double-J stent is in place. IMPRESSION: Diffusely moderate to significant distention of the colon is seen with air. CXR(09/09): FINDINGS: Right PICC terminates in the proximal SVC. Low lung volumes with mild to moderate diffuse pulmonary interstitial thickening. No pleural effusion. No pneumothorax. Mild cardiomegaly. Single-chamber AICD. No significant osseous abnormality. Moderate gaseous distention of bowel loops in the upper abdomen. IMPRESSION: 1. Right PICC terminates in the proximal SVC. 2. Mild to moderate diffuse pulmonary interstitial thickening. 3. Mild cardiomegaly. 4. Moderate gaseous distention of bowel loops in the upper abdomen. CT Head (09/12): FINDINGS: No intracranial hemorrhage, hydrocephalus or extra-axial fluid collection.Mild generalized brain atrophy is present with mild periventricular and deep white matter chronic microvascular ischemic changes.No areas of brain edema or evidence of midline shift. The paranasal sinuses and mastoids are clear. The calvarium is intact. IMPRESSION: No acute intracranial abnormality. TTE (09/16): NORMAL LEFT VENTRICULAR EJECTION FRACTION 55-60%. NORMAL WALL MOTION. MILD MITRAL AND TRICUSPID REGURGITATION. CT Abd/pelvis (09/19): FINDINGS: Scarring and bronchiectasis changes are present in the posterior gutter on the left similar to comparison. No acute lung base finding. No pericardial thickening or effusion. The liver, spleen and pancreas show no suspicious findings on non-contrast imaging. Gallbladder is absent. No biliary tree dilatation. No right-sided hydronephrosis. No right-sided obstructing or nonobstructing calculi. Double pigtail stent is in place in the left collecting system. No stone seen along the course of the stent. A very faint 1 mm calcification present posterior lower pole left kidney. Urinary bladder is fully contracted around a Brito catheter. No significant adrenal finding. Isodense renal masses and pyelonephritis cannot be excluded in the absence of IV contrast. Right deviation of the uterus is present. No primary ovarian process seen. PEG tube is in place in the decompressed stomach. No acute gastric finding. No small bowel abnormality. Appendicitis is not suspected. There is moderate fluid in stool in the right-side of the colon. Patient has a distended air-filled and redundant transverse colon and splenic flexure. There is dilation of a tortuous and redundant sigmoid colon which extends into the anterior superior left upper abdomen. This is more pronounced than seen previously. No obstructing mass or volvulus. This degree of transverse and sigmoid colon distention/dilatation would account for a distended abdomen. No free air, free fluid or inflammatory stranding. No hernia, mass or bulky lymphadenopathy. No suspicious bony findings. Bony degenerative changes are present. IMPRESSION: Patient is a tortuous and redundant sigmoid colon that is dilated and extends into the anterior superior left upper abdomen. Patient also has adjacent gas distention of a redundant transverse colon. Collectively the colon distention/dilatation would account for abdominal distention. There is no obstructing mass or volvulus. The colon findings are more prominent but not new from the September 05 imaging. No free air, pneumatosis or other surgically emergent finding. Full assessment is limited is the absence of IV contrast. Problem List Acute renal failure, resolved acute on chronic anemia, acute blood loss due to recent abnormal uterine bleeding enlarged, heterogenous uterus History of DVT, on chronic eliquis multiple short runs of Vtach Urinary tract infection complicated with long-term Brito catheter use, Proteus ESBL Chronic diastolic congestive heart failure S/P pacemaker defibrillator placement Hypotension, with h/o HTN Diabetes mellitus type 2 with hypoglycemia Hyperlipidemia RA COPD Anxiety Brief History of Present Illness: 70-year-old female with history of chronic diastolic congestive heart failure, diabetes mellitus type 2, hypertension, DVTs presents emergency department for low blood pressure, weakness. Patient has long-term indwelling Brito catheter due to immobilization and PEG tube placement for nutritional n eeds. Patient currently lives at home with her daughter. Patient noted in the emergency department, labs significant for hemoglobin 6.0 hematocrit 17.5 MCV 90.8 sodium 128/87 BUN 56 and 2.23 GFR 26 magnesium 2.5 iron 27, TIBC 119 transfer in the 85 ferritin 2674 pro calcitonin 0.4 urinalysis significant for greater than 50 bacteria less than 5 squamous 3+ leuk esterase on dip 3+ blood CT abdomen pelvis chronic dilatation of sigmoid colon measuring 10.[address] head negative. Chest x-ray unremarkable. Patient ordered to be transfused 2 units packed red blood cells in the emergency department, ED prior history admitted for UTI, anemia, ARF. Hospital Course: by problem list: FRANNY resolved with IV fluid. acute on chronic anemia (chronic disease and iron deficiency), acute blood loss abnormal uterine bleeding enlarged, heterogenous uterus History of DVT, on chronic eliquis -recent abnormal uterine bleeding 1 month and 2 days prior to admission. -U/S concerning for heterogenous, enlarged uterus. Dr. Holm was consulted and unfortunately patient was unable to undergo successful endometrial biopsy. To follow up as outpatient -required a total of 5 units PRBCs during admission. Hgb 6.0 on admission. -Hgb mostly stable for several days after the first 3 units, slowly decreased over time and received additional 2 units on day prior to discharge. -given recent bleed and no tissue diagnosis at this time, risks vs benefits were reviewed with patient and family. Decision was made to hold eliquis for now -patient did not have any bleeding during her hospitalization. Guaiac was negative in the ED. Urinary tract infection complicated with long-term Brito catheter use, Proteus ESBL -Urine grew ESBL proteus; PICC line placed for outpatient IV antibiotics. Patient remained in hospital long enough to complete full 2 week course. PICC was pulled prior to discharge on 09/20 -Infectious disease recommended 2 weeks of IV meropenem or Invanz. stop date: 09/20 evening -Blood grew staph epidermis in all bottles. felt to be skin contaminant, ID agreed -repeat blood cultures x2: No growth. -UA was also noted to have +yeast. Pt reported vaginal discharge, nursing staff reported greenish thick vaginal discharge -patient was treated with diflucan as well as flagyl for bacterial vaginosis Hallucinations, h/o schiaffective disorder -psychiatry consulted for assistance -on further discussion with patient and family, seems she has been having these for a few months, intermittently -discussed with psych, recommended olazapine, started 09/18 Runs of Vtach during her hospitalization, she was noted to have short run of vtach cardiology was consulted - recommended amiodarone no longer hard vtach Echo: normal EF, no significant cardiac findings DM2, HLD, RA, COPD, Anxiety -were stable Vital Signs/Physical Exam: Physical Exam General: NAD, AAOx3 HEENT: MMM, sclera anicteric Respiratory: Clear to auscultation bilaterally, Normal air movement Cardiovascular: Regular rate/rhythm, Normal S1 S2, trace b/l lower extremity edema Gastrointestinal: Soft, nontender, non-distended, PEG in place Musculoskeletal: No joint swelling/tenderness : chronic indwelling brito Temp Pulse Resp BP Pulse Ox 96.9 F 95 H 18 120/74 99 09/20/20 16:00 09/20/20 16:00 09/20/20 16:00 09/20/20 16:00 09/20/20 16:00 Laboratory Data at Discharge: WBC 5.60 K/uL (4.3-10.9) 09/20/20 04:50 Hgb 9.1 g/dL (12.0-15.0) L 09/20/20 04:50 Hct 27.6 % (36.0-45.0) L D 09/20/20 04:50 Plt Count 247 K/uL (152-406) 09/20/20 04:50 PT 16.5 SECONDS (9.5-12.5) H 09/11/20 11:53 INR 1.43 09/11/20 11:53 Sodium 142 mmol/L (136-145) 09/20/20 04:50 Potassium Cancelled 09/20/20 17:30 BUN 10 mg/dL (7-18) 09/20/20 04:50 Creatinine 0.57 mg/dL (0.55-1.3) 09/20/20 04:50 Glucose 72 mg/dL (74-106) L 09/20/20 04:50 Uric Acid 10.3 mg/dL (2.6-6.0) H D 09/06/20 08:20 Phosphorus 3.4 mg/dL (2.5-4.9) 09/20/20 04:50 Magnesium 1.9 mg/dL (1.8-2.4) 09/19/20 04:30 Total Bilirubin 0.4 mg/dL (0.2-1.0) 09/09/20 03:29 AST 42 U/L (15-37) H 09/09/20 03:29 ALT 33 U/L (12-78) 09/09/20 03:29 Alkaline Phosphatase 174 U/L (45-117) H 09/09/20 03:29 Troponin I < 0.02 ng/mL (0.0-0.045) 09/06/20 08:20 Triglycerides 135 mg/dL (<150) 09/06/20 08:20 Cholesterol 111 mg/dL (<200) 09/06/20 08:20 HDL Cholesterol 24 mg/dL (40-60) L 09/06/20 08:20 Cholesterol/HDL Ratio 4.63 09/06/20 08:20 Home Medications: Albuterol Sulfate [Proair Hfa] 2 puff IH Q4HR 02/04/13 Venlafaxine HCl [Effexor XR] 150 mg PO DAILY 02/04/13 Liraglutide [Victoza 2-Walker] 1.8 mg SQ DAILY 01/30/14 Folic Acid 1 tab PO DAILY 07/09/20 Potassium Chloride [Klor-Con] 2 tab PO BID 07/09/20 Trazodone [Desyrel*] 1 tab PO DAILY 07/09/20 Jevity 1.5 Edwin Liquid 237 ml FT 5XD #120 bot 07/17/20 Thiamine HCl [Vitamin B-1*] 100 mg PO DAILY #30 tablet 07/17/20 Magnesium Oxide 1 tab PO DAILY 09/17/20 hydrOXYzine HCL [Atarax*] 1 tab PO BEDTIME 09/17/20 Amiodarone HCl [Cordarone*] 200 mg PO DAILY 30 Days #30 tab 09/20/20 Iron/FA/Vit B-Com W/C [Hemocyte Plus*] 1 tab PO DAILY WITH BREAKFAST 30 Days #30 tab 09/20/20 Olanzapine [Zyprexa] 5 mg PO BEDTIME 30 Days #30 tablet 09/20/20 New Medications: Amiodarone HCl [Cordarone*] 200 mg PO DAILY 30 Days #30 tab Iron/FA/Vit B-Com W/C [Hemocyte Plus*] 1 tab PO DAILY WITH BREAKFAST 30 Days #30 tab Olanzapine [Zyprexa] 5 mg PO BEDTIME 30 Days #30 tablet Physician Discharge Instructions: You were found to have urinary tract infection due to long-term Brito catheter. This was due to a ESBL Proteus (bacteria). You completed 2 weeks of IV meropenem (antibiotic) to treat this infection. You do not need any further antibiotics at this time. Your urine was also noted to have some yeast, and you reported vaginal itching/pain. You were also treated for this with diflucan and flagyl. You had low hemoglobin when you came in (anemia) and this was likely due to your recent abnormal uterine bleeding. CT scan and an ultrasound of her pelvis revealed a large uterus. This was concerning for possible fibroid or possibly cancer. A biopsy was attempted but unable to be completed while you're in the hospital. You will will need to follow up with a casting and locker room servicer to further evaluate this. You required 5 units of blood transfusion for your anemia. Your also noted to have some iron deficiency. You are discharged with iron tablets. Due to your ongoing anemia and recent bleeding, weighing risks vs benefits, your blood thinner (eliquis) was stopped. Your stool was evaluated and did not have any microscopic blood. You did not have any vaginal/uterine bleeding during your hospitalization. You had moments of fast/irregular heart rate/rhythm. Cardiology was consulted and your carvedilol was switched to amiodarone. Psychiatry was consulted and recommended starting olazapine 5mg at bedtime to see if it helps with the hallucinations / symptoms you experience. Recommend bilateral knee-high graduated compression stockings, at least 20-30 mmHg ankle pressure, to lessen the lower leg swelling Follow up with PCP in 3-5 days Follow up with Kidney doctors in ~2-3 weeks Follow up with Cardiology in ~3-4 weeks Diet: ADA Activity: Fall precautions Followup: NONE,NONE [Primary Care Provider] - Time spent managing pt's care (in minutes): 45
[2020-09-21 04:57] VITALS: BP 118/57; TEMP 98.2
== END 2020-09-20 17:30 | disposition home health service (06) | DRG 698 ==
LOC: ER 14:48 → ERHOLD 18:55 → 4TH 20:51
PROVIDERS: ADMIT Hospitalist; ATTEND Hospitalist
PROC: 30233N1 Transfusion of Nonautologous Red Blood Cells into Peripheral Vein, Percutaneous Approach (ICD-10-PCS; principal; 2020-09-05)
PROC: 02HV33Z Insertion of Infusion Device into Superior Vena Cava, Percutaneous Approach (ICD-10-PCS; 2020-09-09)
DX: T83.511A Infection and inflammatory reaction due to indwelling urethral catheter, initial encounter (principal); N17.0 Acute kidney failure with tubular necrosis; Z16.12 Extended spectrum beta lactamase (ESBL) resistance; B37.49 Other urogenital candidiasis; D62 Acute posthemorrhagic anemia; I50.32 Chronic diastolic (congestive) heart failure; E44.0 Moderate protein-calorie malnutrition; E87.0 Hyperosmolality and hypernatremia; I47.2 Ventricular tachycardia; N17.9 Acute kidney failure, unspecified; N39.0 Urinary tract infection, site not specified; B96.4 Proteus (mirabilis) (morganii) as the cause of diseases classified elsewhere; N93.9 Abnormal uterine and vaginal bleeding, unspecified; N85.2 Hypertrophy of uterus; I11.0 Hypertensive heart disease with heart failure; I95.9 Hypotension, unspecified; E11.649 Type 2 diabetes mellitus with hypoglycemia without coma; J44.9 Chronic obstructive pulmonary disease, unspecified; F41.9 Anxiety disorder, unspecified; F25.9 Schizoaffective disorder, unspecified; Z68.34 Body mass index [BMI] 34.0-34.9, adult; L89.152 Pressure ulcer of sacral region, stage 2; E87.6 Hypokalemia; E83.42 Hypomagnesemia; M06.9 Rheumatoid arthritis, unspecified; K52.9 Noninfective gastroenteritis and colitis, unspecified; N76.0 Acute vaginitis; Z95.810 Presence of automatic (implantable) cardiac defibrillator; Z86.718 Personal history of other venous thrombosis and embolism; Z79.01 Long term (current) use of anticoagulants; Z20.822 Contact with and (suspected) exposure to COVID-19
CPT/HCPCS: 36415; 36430; 36569; 70450; 71045; 71275; 74018; 74176; 76770; 76856; 80048; 80053; 80061; 80069; 80076; 80202; 81001; 81003; 81015; 82024; 82378; 82435; 82533; 82550; 82570; 82728; 82947; 83540; 83605; 83735; 83880; 83935; 83970; 84100; 84132; 84145; 84156; 84300; 84439; 84443; 84466; 84484; 84550; 85014; 85018; 85025; 85044; 85610; 86038; 86304; 86334; 86850; 86900; 86901; 87040; 87077; 87086; 87088; 87186; 87205; 87490; 87590; 92610; 93005; 93306; 93970; 96374; 97110; 97112; 97161; 97530; 99285; J0692; J1630; J1650; J2185; J2270; J2405; J3370; J3475; J3480; J7040; J7050; J7799; P9016; Q9967; U0003

== ENCOUNTER 2021-09-27 17:00 | Emergency (ER) | payer OTHER ==
--- NOTE | 2021-09-27 17:33 | RAD REPORT ---
EXAM DESCRIPTION: RAD - Chest Single View - 09/27/2021 5:19 pm CLINICAL HISTORY: Chest pain COMPARISON: Chest Single View dated 09/09/2020; Abdomen 1 View (KUB) dated 09/09/2020; Chest Single Vi ew dated 09/05/2020; Abdomen 1 View (KUB) dated 07/15/2020; Abdomen 1 View (KUB) dated 07/21/2019; Abdom en Pelvis Wo Contrast dated 09/19/2020 FINDINGS: Lines: Defibrillator. Lungs: Low lung volumes and likely basilar atelectasis. Pleural: No significant pleural effusions or pneumothorax. Cardiac: Similar enlargement of the cardiopericardial silhouette. Bones: No acute fractures. Other: Distended colon in the upper abdomen, similar to prior exams. IMPRESSION: Low lung volumes with likely associated atelectasis. No definite acute process.
[2021-09-27 17:50] LABS: Absolute Lymphocytes (CBC) 1.8 K/uL (0.7-4.9); Hematocrit 30.6 % (36.0-45.0); Lymphocytes % 20.2 % (15.3-44.8); MCV 93.5 fL (80-100); RBC Red Blood Cell Count 3.27 M/uL (3.86-4.86)
[2021-09-27 18:10] LABS: Potassium 4.2 mmol/L (3.5-5.1)
[2021-09-27] MEDS ORDERED: CIPROFLOXACIN 400mg IV 400 MG/200 ML BAG IV ONE (18:14)
[2021-09-27] MEDS ORDERED: FAMOTIDINE 20 MG/2 ML VIAL IV ONE ×2 (18:14→18:20)
[2021-09-27] MEDS ORDERED: METRONIDAZOLE 500mg IVPB 500 MG/100 ML BAG IV ONE (18:14)
[2021-09-27] MEDS ORDERED: NA CHLORIDE 0.9% 500 ML ONE (19:29)
--- NOTE | 2021-09-27 19:33 | RAD REPORT ---
EXAM DESCRIPTION: CTAbdomen Pelvis W Contrast - 09/27/2021 7:13 pm CLINICAL HISTORY: Abdominal pain, acute, nonlocalized, neutropenic COMPARISON: Abdomen Pelvis W Contrast dated 07/14/2020; Abdomen Pelvis W Contrast dated 0; Abdomen Pelvis W Contrast dated 06/25/2019 TECHNIQUE: CT of the abdomen and pelvis was performed. All CT scans are performed using dose optimization technique as appropriate and may include automated exposure control or mA/KV adjustment according to patient size. FINDINGS: Lower chest: Basilar atelectasis and/or scarring. Pacemaker leads. Liver: Portal venous gas present. Mild intrahepatic biliary duct dilatation. No focal liver masses. Biliary: Cholecystectomy Stomach: Gastrostomy tube . Gas lung nondependent wall of the stomach. This does NOT extend to the no ndependent portion of the stomach which would suggest emphysematous gastritis. Duodenum: No significant focal abnormality. Pancreas: No significant abnormality. Spleen: No significant abnormality. Adrenal: No suspicious lesions. Kidney/ureter: Left lower pole ureteral stent in place. Urothelial enhancement is present. Left lower pole hydronephrosis is again noted. Retroperitoneum: No retroperitoneal adenopathy. Vascular: No aneurysm. Bowel: Markedly dilated colon with massive volume of stool in the distal sigmoid and rectum.. Peritoneum: No ascites or free air. Bladder: [place] catheter. The left ureteral stent terminates in the bladder is well. Reproductive: Uterine fibroids. Bones: No acute fracture. Other: n/a IMPRESSION: 1. Portal venous gas is present. While this could be secondary to ischemic bowel, other benign etiologies may be present. The gastrostomy tube and marked gaseous distension of the colon cou ld be related. 2. Massive volume of stool in the sigmoid and rectum may reflect fecal impaction. Suspect background of an adynamic ileus. Discussed with Dr. Adams by Dr. Weiss at 1925 on 09/27/21
--- NOTE | 2021-09-27 19:52 | ER ---
Nurse's Notes [facility] Name: Anita Harp Age: 71 yrs Sex: Female : 1950 Arrival Date: 09/27/2021 Time: 17:03 Bed 6 Private MD: Diagnosis: Abdominal distension (gaseous);Constipation, unspecified-MASSIVE STOOL SIGMOID/RECTUM;Anomalous portal venous connection-AIR;Other intestinal obstruction-COLON;Presence of cardiac pacemaker;Abnormal results of kidney function studies-ACUTE ON CHRONIC Presentation: 09/27 17:03 Chief complaint: Patient states: PATRICK, nausea, abd cramping, near syncope feeling for 3 ll1 days. No known fever. Coronavirus screen: Vaccine status: Patient reports being unvaccinated. Client denies travel out of the [place] in the last 14 days. cough unrelated to allergies, fatigue, headache, muscle pain, nausea, Client presents with at least one sign or symptom that may indicate coronavirus-19. Standard/surgical mask placed on the client. Ebola Screen: Patient denies travel to an Ebola-affected area in the 21 days before illness onset. Initial Sepsis Screen: Does the patient meet any 2 criteria? HR > 90 bpm. No. Patient's initial sepsis screen is negative. Does the patient have a suspected source of infection? Yes: Acute abdominal pain. Risk Assessment: Do you want to hurt yourself or someone else? Patient reports no desire to harm self or others. Onset of symptoms was September 25, 2021. 17:03 Method Of Arrival: EMS ll1 17:03 Acuity: DENT[place] 3 ll1 Triage Assessment: 17:06 General: Appears ill, Behavior is cooperative, appropriate for age. Pain: Complains of ll1 pain in abdomen Pain currently is 10 out of 10 on a pain scale. Quality of pain is described as aching, crampy, Pain began 2-3 days ago. Is intermittent. Neuro: Reports headache a syncopal episode weakness. Cardiovascular: Reports fatigue. GI: Reports lower abdominal pain, upper abdominal pain, cramping, nausea. Historical: - Allergies: 17:05 Aspirin; ll1 17:05 Ibuprofen; ll1 17:05 PENICILLINS; ll1 17:05 boric acid; ll1 - PMHx: 17:05 COPD; Diabetes - NIDDM; Panic Attacks; claustrophobia; CHF; Anxiety; Rheumatoid ll1 Arthritis; - PSHx: 17:05 feeding tube; pacemaker; ll1 - Immunization history:: Client reports having NOT received the Covid vaccine. - Social history:: Smoking status: Patient denies any tobacco usage or history of. Screenin:07 Abuse screen: Denies threats or abuse. Nutritional screening: No deficits noted. ll1 Tuberculosis screening: No symptoms or risk factors identified. Fall Risk IV access (20 points). Gait- Weak (10 pts.). Total Hernández Fall Scale indicates Low Risk Score (25-44 pts). Fall prevention measures have been instituted. Side Rails Up X 2 Placed close to Nursing Station Frequent Obs/Assesments occuring Family Present and informed to notify staff if they need to leave bedside As available Patient and Family Educated on Fall Prevention Program and strategies. Assessment: 17:42 Reassessment: No changes from previously documented assessment. Patient and/or family ll1 updated on plan of care and expected duration. Pain level reassessed. Patient is alert, oriented x 3, equal unlabored respirations, skin warm/dry/pink. 18:45 Reassessment: No changes from previously documented assessment. Patient and/or family kr3 updated on plan of care and expected duration. Pain level reassessed. 19:30 General: Appears in no apparent distress. Behavior is cooperative. Pain: Complains of sm5 pain in abdomen. Neuro: Level of Consciousness is awake, alert, obeys commands, Oriented to person, place, time, situation. Cardiovascular: Capillary refill < 3 seconds Patient's skin is warm and dry. Respiratory: Airway is patent Trachea midline Respiratory effort is even, unlabored. GI: Abdomen is round distended, PEG tube in place, clamped. Reports lower abdominal pain, upper abdominal pain. 20:00 Reassessment: Transfer initiated to [facility] by Dr. Adams. ss 20:45 Reassessment: No changes from previously documented assessment. Patient and/or family sm5 updated on plan of care and expected duration. Pain level reassessed. 23:00 Reassessment: No changes from previously documented assessment. Patient is alert, sm5 oriented x 3, equal unlabored respirations, skin warm/dry/pink. 09/28 00:52 Reassessment: No changes from previously documented assessment. sm5 00:59 Reassessment: Patient's daughter, Sangita, aware of patient being transferred to [address] [place] [address]. Vital Signs: 09/27 17:03 BP 123 / 100; Pulse 100; Resp 18; Temp 97.2; Pulse Ox 100% ; Weight 99.79 kg; Pain ll1 10/10; 18:00 BP 115 / 72; Pulse 72; kr3 19:00 BP 110 / 64; Pulse 67; Resp 16; Pulse Ox 100% on R/A; kr3 20:45 BP 143 / 92; Pulse 95; Resp 16; Pulse Ox 98% on R/A; sm5 23:00 BP 145 / 94; Pulse 92; Resp 18; Pulse Ox 99% on R/A; sm5 07 00:30 BP 151 / 93; Pulse 92; Resp 16; Pulse Ox 100% on R/A; sm5 ED Course: 09/27 17:03 Patient arrived in ED. ll1 17:05 Triage completed. ll1 17:06 Arm band placed on Patient placed in an exam room, on a stretcher. ll1 17:07 Patient has correct armband on for positive identification. Bed in low position. Call ll1 light in reach. Side rails up X 1. Pulse ox on. NIBP on. 17:08 Saad Navarrete MD is Attending Physician. kdr 17:21 XRAY Chest (1 view) In Process Unspecified. EDMS 17:23 Ladi Ahn, CHRISTOPH is Primary Nurse. ll1 17:41 Missed attempt(s): 24 gauge in right antecubital area. Bleeding controlled, band aid ll1 applied, catheter tip intact. 18:10 Inserted saline lock: 22 gauge in right antecubital area, using aseptic technique. ss 19:14 CT Abd/Pelvis - IV Contrast Only In Process Unspecified. EDMS 19:16 Attending Physician role handed off by Saad Navarrete MD werner 19:16 Brennan Adams MD is Attending Physician. werner 23:28 Called [facility] for patient transfer to [facility], Nick reports ETA of 2 lp1 hours for transfer. 23:39 Called [facility] for patient transfer, reported ETA of 1 hour for transfer truck. lp1 09/28 00:52 No provider procedures requiring assistance completed. Patient transferred, IV remains [facility] in place. Administered Medications: 09/27 18:00 Drug: Flagyl (metroNIDAZOLE) 500 mg Volume: 100 ml; Route: IVPB; Rate: 200 ml/hr; kr3 Infused Over: 30 mins; Site: right antecubital; 18:58 Follow up: Response: No adverse reaction; IV Status: Completed infusion; IV Intake: kr3 100ml 18:00 Drug: Pepcid (famotidine) 20 mg Route: IVP; Site: right antecubital; kr3 18:57 Follow up: Response: No adverse reaction kr3 18:50 Drug: Cipro (ciprofloxacin) 400 mg Volume: 200 ml; Route: IVPB; Infused Over: 60 mins; kr3 Site: right antecubital; 21:07 Follow up: IV Status: Completed infusion; IV Intake: 200ml sm5 19:30 Drug: NS 0.9% 500 ml Route: IV; Rate: bolus; Site: right antecubital; sm5 21:07 Follow up: IV Status: Completed infusion; IV Intake: 500ml sm5 22:20 Drug: NS 0.9% 1000 ml Route: IV; Rate: 125 ml/hr; Site: right antecubital; sm5 09/28 00:53 Follow up: IV Status: Infusion continued upon transfer sm5 Medication: 09/27 17:07 VIS not applicable for this client. ll1 Intake: 18:58 IV: 100ml; Total: 100ml. kr3 21:07 IV: 200ml; Total: 300ml. sm5 21:07 IV: 500ml; Total: 800ml. 5 Outcome: 19:52 ER care complete, transfer ordered by MD. caldera 09/28 00:52 Transferred by ground EMS to [facility], Transfer form completed. 5 X-rays sent w/ patient. Condition: stable Instructed on the need for transfer. 00:53 Patient left the ED. 5 Signatures: Dispatcher [employer] EDBrennan Phillips MD MD cha Rittger, Kevin, MD MD kdr Smirch, Shelby, RN RN ss Chanel Newman RN RN lp1 Ladi Ahn RN RN ll1 Roxana Cárdenas RN RN 5 Julia Pedraza RN RN kr3
--- NOTE | 2021-09-27 19:53 | EDPHYS ---
Physician Documentation [facility] Name: Anita Harp Age: 71 yrs Sex: Female : 1950 Arrival Date: 09/27/2021 Time: 17:03 Bed 6 Private MD: PRADIP Physician Brennan Adams HPI: 09/27 19:41 This 71 yrs old Black Female presents to ER via EMS with complaints of abdominal pain, werner distention . 19:41 abdoninal pain, distention, megacolon. Onset: The symptoms/episode began/occurred 3 werner day(s) ago. Severity of symptoms: At their worst the symptoms were moderate in the emergency department the symptoms are unchanged. The patient has not experienced similar symptoms in the past. Historical: - Allergies: 17:05 Aspirin; ll1 17:05 Ibuprofen; ll1 17:05 PENICILLINS; ll1 17:05 boric acid; ll1 - PMHx: 17:05 COPD; Diabetes - NIDDM; Panic Attacks; claustrophobia; CHF; Anxiety; Rheumatoid ll1 Arthritis; - PSHx: 17:05 feeding tube; pacemaker; ll1 - Immunization history:: Client reports having NOT received the Covid vaccine. - Social history:: Smoking status: Patient denies any tobacco usage or history of. ROS: 19:43 Constitutional: Negative for fever, chills, and weight loss, Eyes: Negative for injury, werner pain, redness, and discharge, ENT: Negative for injury, pain, and discharge, Neck: Negative for injury, pain, and swelling, Cardiovascular: Negative for chest pain, palpitations, and edema, Respiratory: Negative for shortness of breath, cough, wheezing, and pleuritic chest pain, Back: Negative for injury and pain, : Negative for injury, bleeding, discharge, and swelling, MS/Extremity: Negative for injury and deformity, Skin: Negative for injury, rash, and discoloration, Neuro: Negative for headache, weakness, numbness, tingling, and seizure, Psych: Negative for depression, anxiety, suicide ideation, homicidal ideation, and hallucinations, Allergy/Immunology: Negative for hives, rash, and allergies, Endocrine: Negative for neck swelling, polydipsia, polyuria, polyphagia, and marked weight changes, Hematologic/Lymphatic: Negative for swollen nodes, abnormal bleeding, and unusual bruising. 19:43 Abdomen/GI: Positive for abdominal pain, of the right upper quadrant, left upper quadrant, right lower quadrant and left lower quadrant. Exam: 19:43 Constitutional: This is a well developed, well nourished patient who is awake, alert, werner and in no acute distress. Head/Face: Normocephalic, atraumatic. Eyes: Pupils equal round and reactive to light, extra-ocular motions intact. Lids and lashes normal. Conjunctiva and sclera are non-icteric and not injected. Cornea within normal limits. Periorbital areas with no swelling, redness, or edema. ENT: Nares patent. No nasal discharge, no septal abnormalities noted. Tympanic membranes are normal and external auditory canals are clear. Oropharynx with no redness, swelling, or masses, exudates, or evidence of obstruction, uvula midline. Mucous membranes moist. Neck: Trachea midline, no thyromegaly or masses palpated, and no cervical lymphadenopathy. Supple, full range of motion without nuchal rigidity, or vertebral point tenderness. No Meningismus. Chest/axilla: Normal chest wall appearance and motion. Nontender with no deformity. No lesions are appreciated. Cardiovascular: Regular rate and rhythm with a normal S1 and S2. No gallops, murmurs, or rubs. Normal PMI, no JVD. No pulse deficits. Respiratory: Lungs have equal breath sounds bilaterally, clear to auscultation and percussion. No rales, rhonchi or wheezes noted. No increased work of breathing, no retractions or nasal flaring. Back: No spinal tenderness. No costovertebral tenderness. Full range of motion. Female : Normal external genitalia. Skin: Warm, dry with normal turgor. Normal color with no rashes, no lesions, and no evidence of cellulitis. MS/ Extremity: Pulses equal, no cyanosis. Neurovascular intact. Full, normal range of motion. Neuro: Awake and alert, GCS 15, oriented to person, place, time, and situation. Cranial nerves II-XII grossly intact. Motor strength 5/5 in all extremities. Sensory grossly intact. Cerebellar exam normal. Normal gait. Psych: Awake, alert, with orientation to person, place and time. Behavior, mood, and affect are within normal limits. 19:43 Abdomen/GI: Inspection: distension, that is moderate, Bowel sounds: diminished, Palpation: mild abdominal tenderness, in all quadrants, Liver: no appreciated palpable abnormalities, Hernia: not appreciated. Vital Signs: 17:03 BP 123 / 100; Pulse 100; Resp 18; Temp 97.2; Pulse Ox 100% ; Weight 99.79 kg; Pain ll1 10/10; 18:00 BP 115 / 72; Pulse 72; kr3 19:00 BP 110 / 64; Pulse 67; Resp 16; Pulse Ox 100% on R/A; kr3 20:45 BP 143 / 92; Pulse 95; Resp 16; Pulse Ox 98% on R/A; sm5 23:00 BP 145 / 94; Pulse 92; Resp 18; Pulse Ox 99% on R/A; sm5 07 00:30 BP 151 / 93; Pulse 92; Resp 16; Pulse Ox 100% on R/A; sm5 MDM: 09/27 19:07 ED course: Dr. Adams to disposition. kdr 19:16 Patient medically screened. werner 19:52 Differential Diagnosis sepsis. Differential diagnosis: diverticulitis, Mesenteric werner ischemia or infarction, non-specific abd pain, pancreatitis, Peptic Ulcer Disease, Peritonitis, urinary tract infection. Data reviewed: vital signs, nurses notes, lab test result(s), EKG, radiologic studies, CT scan, plain films. 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 Test interpretation: by ED physician or midlevel provider: ECG, plain radiologic studies. Counseling: I had a detailed discussion with the patient and/or guardian regarding: the historical points, exam findings, and any diagnostic results supporting the discharge/admit diagnosis, lab results, radiology results, the need to transfer to another facility. 09/27 17:09 Order name: Basic Metabolic Panel; Complete Time: 19:19 kdr 09/27 17:09 Order name: CBC with Diff; Complete Time: 19:19 kdr 09/27 17:09 Order name: NT PRO-BNP; Complete Time: 19:19 kdr 09/27 17:09 Order name: Troponin HS; Complete Time: 19:19 kdr 09/27 19:19 Order name: Lipase; Complete Time: 19:37 werner 09/27 19:19 Order name: SARS-COV-2 RT PCR (Document "Date of Onset" if Symptomatic); Complete Time: werner 21:15 02 17:09 Order name: XRAY Chest (1 view); Complete Time: 19:19 kdr 09/27 17:34 Order name: CT Abd/Pelvis - IV Contrast Only; Complete Time: 19:37 kdr 09/27 17:09 Order name: EKG; Complete Time: 17:09 kdr 09/27 17:09 Order name: Cardiac monitoring; Complete Time: 17:42 kdr 09/27 17:09 Order name: EKG - Nurse/Tech; Complete Time: 17:42 kdr 09/27 17:09 Order name: IV Saline Lock; Complete Time: 17:22 kdr 09/27 17:09 Order name: Labs collected and sent; Complete Time: 17:22 kdr 09/27 17:09 Order name: O2 Per Protocol; Complete Time: 17:22 kdr 09/27 17:09 Order name: O2 Sat Monitoring; Complete Time: 17:22 kdr 09/27 20:00 Order name: [place]; Complete Time: 21:07 [facility] 09/27 20:05 Order name: NG Tube: USE PEG TO LIS; Complete Time: 20:05 [facility] Administered Medications: 18:00 Drug: Flagyl (metroNIDAZOLE) 500 mg Volume: 100 ml; Route: IVPB; Rate: 200 ml/hr; kr3 Infused Over: 30 mins; Site: right antecubital; 18:58 Follow up: Response: No adverse reaction; IV Status: Completed infusion; IV Intake: kr3 100ml 18:00 Drug: Pepcid (famotidine) 20 mg Route: IVP; Site: right antecubital; kr3 18:57 Follow up: Response: No adverse reaction kr3 18:50 Drug: Cipro (ciprofloxacin) 400 mg Volume: 200 ml; Route: IVPB; Infused Over: 60 mins; kr3 Site: right antecubital; 21:07 Follow up: IV Status: Completed infusion; IV Intake: 200ml 5 19:30 Drug: NS 0.9% 500 ml Route: IV; Rate: bolus; Site: right antecubital; [facility] 21:07 Follow up: IV Status: Completed infusion; IV Intake: 500ml 5 22:20 Drug: NS 0.9% 1000 ml Route: IV; Rate: 125 ml/hr; Site: right antecubital; [facility] 09/28 00:53 Follow up: IV Status: Infusion continued upon transfer sm5 Disposition Summary: 09/27/21 19:52 Transfer Ordered Transfer Location: [facility] werner Reason: Higher level of care werner Condition: Fair werner Problem: new werner Symptoms: have improved werner Accepting Physician: to [facility](09/28/21 00:53) 5 Diagnosis - Abdominal distension (gaseous) werner - Constipation, unspecified - MASSIVE STOOL SIGMOID/RECTUM werner - Anomalous portal venous connection - AIR werner - Other intestinal obstruction - COLON werner - Presence of cardiac pacemaker werner - Abnormal results of kidney function studies - ACUTE ON CHRONIC werner Forms: - Medication Reconciliation Form werner - SBAR form werner Signatures: Dispatcher [employer] EDBrennan Phillips MD MD cha Rittger, Kevin, MD MD kdr Lewis, Lynsay, RN RN ll1 Roxana Cárdenas RN RN sm5 Julia Pedraza RN RN kr3 Corrections: (The following items were deleted from the chart) 09/27 19:59 19:52 to [facility] 09/28 00:53 09/27 19:59 to [place] [id number]
[2021-09-27] MEDS ORDERED: NA CHLORIDE 0.9% 1,000 ML ONE (22:23)
[2021-09-28 01:06] VITALS: TEMP 97.2
[2021-09-28 01:15] VITALS: BP 151/93; O2SAT 100
--- NOTE | 2021-09-30 08:02 | EKG ---
Test Date: 2021-09-27 Test Time: 17:57:36 Auxiliary Operator: TRICIA MEASUREMENT RESULTS: Intervals: Rate: 101 MA: 156 QRSD: 90 QT: 366 QTc: 474 [place]: P: 53 MA: 156 QRS: -39 T: 85 INTERPRETIVE STATEMENTS: Sinus tachycardia Left axis deviation Minimal voltage criteria for LVH, may be normal variant Nonspecific ST and T wave abnormality Abnormal ECG Compared to ECG 09/05/2020 16:07:00 Left-axis deviation now present Left ventricular hypertrophy now present Sinus rhythm no longer present Possible ischemia no longer present ST (T wave) deviation still present Electronically Signed On 09-30-21 07:56:04 CDT by Dustin Sutton
== END 2021-09-28 00:53 | disposition short-term general hospital (02) ==
LOC: ER 17:00
DX: R14.0 Abdominal distension (gaseous) (principal); K59.00 Constipation, unspecified; K56.699 Other intestinal obstruction unspecified as to partial versus complete obstruction; Q26.5 Anomalous portal venous connection; R94.4 Abnormal results of kidney function studies; Z95.0 Presence of cardiac pacemaker; E11.9 Type 2 diabetes mellitus without complications; Z88.0 Allergy status to penicillin; Z88.6 Allergy status to analgesic agent; Z20.822 Contact with and (suspected) exposure to COVID-19
CPT/HCPCS: 96365; 96361; 93005; 85025; 80048; 36415; 84484; 83690; 83880; 74177; 71045; 96375; 99285; 96366; U0003; Q9967; J7040; J7030; J3490 ×2; J0744